=== PATIENT | female | born 1950 | race Caucasian/White ===

== ENCOUNTER 2020-01-24 16:11 | Emergency (ER) | payer MEDICARE, SELFPAY ==
--- NOTE | ~2020-01-24 | XR_ITS ---
[XR ribs LT 2V w CXR 2V ] INDICATION: Left-sided chest pain after fall TECHNIQUE: Frontal projection of the upper left ribs, frontal projection of the lower left ribs, obli que projection of all the left ribs, frontal inspiratory chest x-ray for interpretation. FINDINGS: There are no displaced rib fractures identified. There are no soft tissue abnormality see n. The lungs are clear. There is an age-indeterminate compression fracture of L1. There is right lo wer lobe airspace disease. Moderate size hiatal hernia. IMPRESSION: 1:No displaced rib fractures. 2: Right lower lobe airspace disease, atelectasis versus pneumonia. 3: Moderate size hiatal hernia. 4: Age-indeterminate compression fracture of L1. Reviewed, dictated and finalized at location A.
--- NOTE | 2020-01-24 16:41 | ED.GENADULT ---
HPI - General Adult General Chief complaint: Fall Stated complaint: Fall lft rib pain Time Seen by Provider: 01/24/20 16:41 Source: patient Mode of arrival: ambulatory Limitations: no limitations History of Present Illness HPI narrative: 69-year-old female patient presents to the [facility] with complaints of left-sided rib pain. Patient states about 4 days ago she was going down some stairs holding a saw and tripped and fell. Patient states she tried to avoid this but did hit a little bit of the saw and fell onto a grassy area. Patient states since then she has been having pain to the left rib area especially when she takes a deep breath then. Denies any shortness of breath at this time. Denies any abdominal pain or bruising to the abdomen. Denies taking anything for the pain. Denies using any kind a heating pad or ice to the area. Related Data Home Medications Medication Instructions Recorded Confirmed Abilify 01/24/20 atorvastatin [Lipitor] 40 mg PO DAILY 01/24/20 01/24/20 dextroamphetamine-amphetamine 30 mg PO BID 01/24/20 01/24/20 [Adderall] fluoxetine [Prozac] 10 mg PO TID 01/24/20 01/24/20 lamotrigine [Lamictal] 300 mg PO DAILY 01/24/20 01/24/20 lisinopril [Zestril] 20 mg PO DAILY 01/24/20 01/24/20 modafinil [Provigil] 200 mg PO QAM 01/24/20 01/24/20 Allergies Allergy/AdvReac Type Severity Reaction Status Date / Time No Known Allergies Allergy Verified 01/24/20 16:50 Review of Systems Review of Systems: Narrative: CONSTITUTIONAL: Denies fever, chills, or sweats. EYES: Denies visual changes, redness, or discharge. ENT: Denies rhinorrhea, congestion, sore throat, or otalgia. CARDIOVASCULAR: Denies chest pain, palpitations, or edema. RESPIRATORY: Denies cough or dyspnea. Positive left rib pain x4 days GASTROINTESTINAL: Denies abdominal pain, nausea, vomiting, or diarrhea. GENITOURINARY: Denies dysuria or hematuria. SKIN: Denies rash or itching. MUSCULOSKELETAL: Denies back pain, joint pain, or myalgia. NEUROLOGIC: Denies headache, numbness, or weakness. PSYCHIATRIC: Denies anxiety or depression. [facility] Social History Social History Alcohol intake: never Gender identity (if verbalized by the patient): Female Comments At the time of my signature I agree with nursing past medical history, surgical, social, and family history. There is no relevant family history pertinent to the presenting complaint. Exam Narrative: Exam Narrative: GENERAL: Well-appearing, well-nourished, and in no acute distress. HEAD: Normocephalic, atraumatic. EYES: PERRLA and EOMI. ENT: Nares clear, no rhinorrhea or epistaxis. Mucous membranes moist. NECK: Supple. No lymphadenopathy CHEST: Clear to auscultation. No respiratory distress. Patient does have some tenderness noted around the sixth and seventh rib on the anterior side right under the left breast. HEART: Regular rate and rhythm. No murmur heard. Normal peripheral pulses. ABDOMEN: Soft, flat, nondistended. No guarding, rebound tenderness, or rigid. No pulsatilla masses. Bowel sounds present in all four quadrants. No organomegaly. Negative Akbar?s sign. No periumbicial tenderness. No Supra public tenderness or distension. Good femoral pulses bilaterally. No hernia noted. No scars or surface trauma. No surface trauma distinction or tenderness to Palpation. No guarding, rebound, or rigidity. No referred shoulder pain (Kehr?s sign). No periumbilical ecchymosis (nikki?s sign). No flank ecchymosis (veliz niño?s sign). EXTREMITIES: Normal range of motion. No edema. SKIN: Warm, dry, no rash. NEURO: No focal deficits. Alert and oriented x3. Course Reevaluation(s) Reevaluation #1: Reevaluated patient after her x-ray had resulted. Notified her that there is no acute rib fractures noted on the x-ray however it does appear that she might have a touch of pneumonia on the right lower lobe. Discussed with her that this could be be
[2020-01-24 16:42] VITALS: BP 145/80; PULSE 76; RESP 16; TEMP 36.9; O2SAT 99
== END 2020-01-24 17:30 | disposition home or self-care (01) ==
PROVIDERS: Emergency Provider Nurse Practitioner Family
DX: S20.212A Contusion of left front wall of thorax, initial encounter (principal); J18.1 Lobar pneumonia, unspecified organism; K44.9 Diaphragmatic hernia without obstruction or gangrene; W10.9XXA Fall (on) (from) unspecified stairs and steps, initial encounter
CPT/HCPCS: 71046; 71100; 99213; G0463

== ENCOUNTER 2022-01-25 10:34 | Emergency (ER) | payer MEDICARE, SELFPAY ==
--- NOTE | ~2022-01-25 | XR_ITS ---
EXAMINATION: XR forearm LT 2V INDICATION: Left forearm pain, initial encounter TECHNIQUE: Two views of the left forearm are obtained. COMPARISON: None available FINDINGS: There is an acute transverse fracture of the proximal ulna. The olecranon is proximally mariya rated. There is an intra-articular fracture at the lateral aspect of the radial head. No additional f racture is identified. Alignment at the wrist is normal. There is an elbow joint effusion and posteri or soft tissue swelling of the elbow. IMPRESSION: 1. Fractures of the radius and ulna as described above. Reviewed, dictated and finalized at location A.
--- NOTE | ~2022-01-25 | XR_ITS ---
EXAMINATION: XR elbow LT min 3V DATE: 01/25/2022 11:05 INDICATION: Left elbow pain, initial encounter TECHNIQUE: Anteroposterior, two oblique and lateral views of the left elbow were obtained. COMPARISON: None. FINDINGS: There is a transverse fracture of the proximal ulna. The olecranon is proximally migrated a nd from the ulna by approximately 1.2 cm. There is an oblique intra-articular fracture at t he lateral aspect of the radial head. A large elbow joint effusion is present. There is posterior sof t tissue swelling of the elbow. IMPRESSION: 1. Displaced fracture of the olecranon. 2. Intra-articular fracture of the radial head. Reviewed, dictated and finalized at location A.
--- NOTE | ~2022-01-25 | XR_ITS ---
EXAMINATION: XR humerus LT INDICATION: Left arm pain, initial encounter TECHNIQUE: Two views of the left humerus are obtained. COMPARISON: None available FINDINGS: There is a transverse fracture of the proximal ulna with proximal migration of the olecrano n. There is a poorly visualized intra-articular fracture of the radial head. There is no fracture of the left shoulder. Moderate osteoarthritis is noted in the acromioclavicular joint. IMPRESSION: 1. Fractures of the proximal radius and ulna. 2. Mild osteoarthritis of the left shoulder without acute findings. Reviewed, dictated and finalized at location A.
[2022-01-25 10:49] VITALS: BP 116/77; PULSE 65; RESP 18; TEMP 36.7; O2SAT 94
--- NOTE | 2022-01-25 10:53 | ED.GENADULT ---
HPI - General Adult General Chief complaint: Extremity Injury, Upper Stated complaint: fall, arm injury Time Seen by Provider: 01/25/22 10:45 History of Present Illness HPI narrative: Patient is a 71-year-old female with a history of hypertension, osteoporosis who presents emergency department via EMS for evaluation of left elbow pain after a fall today. Patient states she was pulling a weed out of some concrete, when she fell back and landed on her left elbow. No head injury or loss of consciousness. She has reported pain in her elbow and left forearm ever since also has a small abrasion over the left elbow. Was given morphine en route with good pain control. Denies numbness or tingling in her hand. Report significant pain with movement of the elbow. Patient has a chronic injury to her left 5th digit with residual difficulty with finger flexion; but she states she is at her baseline movement in her left hand. No paresthesias. Related Data Home Medications Medication Instructions Recorded Confirmed Abilify 01/24/20 atorvastatin [Lipitor] 40 mg PO DAILY 01/24/20 01/24/20 dextroamphetamine-amphetamine 30 mg PO BID 01/24/20 01/24/20 [Adderall] fluoxetine [Prozac] 10 mg PO TID 01/24/20 01/24/20 lamotrigine [Lamictal] 300 mg PO DAILY 01/24/20 01/24/20 lisinopril [Zestril] 20 mg PO DAILY 01/24/20 01/24/20 modafinil [Provigil] 200 mg PO QAM 01/24/20 01/24/20 Allergies Allergy/AdvReac Type Severity Reaction Status Date / Time No Known Allergies Allergy Verified 01/25/22 10:57 Review of Systems Review of Systems: Gen: Denies fevers or chills Eyes: Denies eye pain or visual change ENT: Denies congestion Respiratory: Denies shortness of breath or cough CV: Denies chest pain or palpitations GI: Denies abdominal pain nausea, emesis or diarrhea : denies burning, urgency, frequency or hematuria Musculoskeletal: Reports left elbow pain. denies back pain or muscle pain Neuro: Denies numbness, tingling, weakness or focal weakness Skin: Reports abrasion over left elbow. Except as documented, all other systems reviewed and negative All systems reviewed & are unremarkable except as noted in HPI and below PMFSH Social History Social History Alcohol intake: never Gender identity (if verbalized by the patient): Female Exam Narrative: Gen: Alert, oriented, no acute distress Eyes: EOMI, no icterus Pulm: Respirations even and unlabored, symmetric thorax expansion, no audible stridor or visible cyanosis CV: 2+ radial pulse bilaterally. Brisk capillary refill. No murmurs, rubs, or gallops. Regular rate. GI: No distension, no voluntary/involuntary guarding Neuro: AOx4, moves all extremities without apparent difficulty or weakness, follows commands MSK: Left elbow has large obvious deformity, bruising and swelling. Tender to palpation over olecranon. There is tenderness with palpation of the forearm bones on the left, and also tenderness over that length of the humerus on the left. No obvious deformity to forearm or upper arm. Chronic difficulty with left 5th digit flexion due to old injury, patient states no more than usual. Able to move other digits without difficulty. Range of motion in left elbow limited due to pain. Skin: No jaundice, no visible bruising, rashes, lesions or wounds on exposed skin Psych: Normal mood/affect, insight/judgement good, adequate fund of knowledge, recent/remote memory intact Course Vital Signs Vital signs: Vital Signs Temperature 98.0 F 01/25/22 10:49 Pulse Rate 65 01/25/22 10:49 Respiratory Rate 18 01/25/22 10:49 Blood Pressure 116/77 01/25/22 10:49 Pulse Oximetry 94 01/25/22 10:49 Temperature 98.0 F 01/25/22 10:49 Pulse Rate 68 01/25/22 15:02 Respiratory Rate 14 01/25/22 15:02 Blood Pressure 119/69 01/25/22 15:02 Pulse Oximetry 93 01/25/22 15:02 Transfer Transfered to: [facility]
[2022-01-25 12:10] VITALS: BP 116/71; PULSE 67; RESP 17; O2SAT 94
[2022-01-25 12:46] VITALS: BP 113/63; PULSE 67; RESP 15; O2SAT 94
[2022-01-25] MEDS: MORPHINE SULFATE (*CRX) 4 MG/ML INJ IV PUSH (12:50)
[2022-01-25 13:32] VITALS: BP 105/84; PULSE 74; RESP 15; O2SAT 98
[2022-01-25] MEDS: MORPHINE SULFATE (*CRX) 2 MG/ML INJ IV PUSH (15:01)
[2022-01-25] MEDS: SODIUM CHLORIDE 0.9% IV 500 ML 999 ML IV CONT (15:01)
[2022-01-25 15:02] VITALS: BP 119/69; PULSE 68; RESP 14; O2SAT 93
== END 2022-01-25 16:35 | disposition short-term general hospital (02) ==
LOC: ANHED 11:02
PROVIDERS: Emergency Provider Emergency Medicine; PCP Family Medicine
DX: S52.022A Displaced fracture of olecranon process without intraarticular extension of left ulna, initial encounter for closed fracture (principal); S52.122A Displaced fracture of head of left radius, initial encounter for closed fracture; I10 Essential (primary) hypertension; M81.0 Age-related osteoporosis without current pathological fracture; M19.012 Primary osteoarthritis, left shoulder; W18.39XA Other fall on same level, initial encounter
CPT/HCPCS: 73060; 73080; 73090; 96361; 96374; 96376; 99285; J2270; J7040

== ENCOUNTER 2023-05-04 13:06 | Emergency (ER) | payer MEDICARE, SELFPAY ==
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
--- NOTE | ~2023-05-04 | CT_ITS ---
EXAMINATION: CT brain wo con DATE: 05/04/2023 14:36 INDICATION: Head injury. TECHNIQUE: Computed tomography (CT) of the head was performed without intravenous contrast. The mA wa s adjusted according to patient size. Iterative reconstruction technique was employed. The dose-lengt h product was 605.33 mGy-cm. COMPARISON: None FINDINGS: There is no intracranial hemorrhage, acute infarction, or abnormal intracranial mass lesion . The ventricles are normal in size. The orbits are normal. The paranasal sinuses are clear. The mast oid air cells are normal. IMPRESSION: 1. Normal brain. Reviewed, dictated and finalized at location A. IMPRESSION: 1. Normal brain.
[2023-05-04 13:10] VITALS: BP 118/75; PULSE 88; RESP 16; TEMP 36.4; O2SAT 100
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
[2023-05-04 14:58] VITALS: BP 104/74; PULSE 71; RESP 22; O2SAT 97
== END 2023-05-04 15:05 | disposition home or self-care (01) ==
PROVIDERS: Emergency Provider Emergency Medicine; PCP Family Medicine
DX: S09.90XA Unspecified injury of head, initial encounter (principal); S50.312A Abrasion of left elbow, initial encounter; S50.311A Abrasion of right elbow, initial encounter; M19.022 Primary osteoarthritis, left elbow; M19.021 Primary osteoarthritis, right elbow; V18.0XXA Pedal cycle driver injured in noncollision transport accident in nontraffic accident, initial encounter; Y93.55 Activity, bike riding
CPT/HCPCS: 70450; 73080; 99284

== ENCOUNTER 2023-10-22 16:35 | Emergency (ER) | payer MEDICARE, SELFPAY ==
--- NOTE | ~2023-10-22 | CT_ITS ---
EXAMINATION: CT brain wo con DATE: 10/22/2023 20:49 INDICATION: fall, head injury . TECHNIQUE: Computed tomography (CT) of the head was performed without intravenous contrast. The mA wa s adjusted according to patient size. Iterative reconstruction technique was employed. The dose-lengt h product was 605.33 mGy-cm. COMPARISON: 05/04/2023. FINDINGS: No acute intracranial hemorrhage or extra-axial fluid collection. No hydrocephalus, mass, or herniation. No acute ischemic infarct. Unremarkable dural venous sinus attenuation. No acute osseous abnormality. Mucosal thickening and aerated secretions in the ethmoid sinuses, mucosal thickening in the right max illary sinus, air-fluid level in the left maxillary sinus, the remaining aerated spaces are clear. Mild atrophy and chronic white matter change. Atherosclerotic intracranial calcification. IMPRESSION: No acute intracranial process. Possible acute left maxillary and ethmoid sinusitis. Reviewed, dictated and finalized at location K. CLE INSPECTOR IMPRESSION: No acute intracranial process. Possible acute left maxillary and ethmoid sinusi tis.
--- NOTE | ~2023-10-22 | CT_ITS ---
EXAMINATION: CT facial & cervical spine wo DATE: 10/22/2023 20:49 INDICATION: fall, head injury TECHNIQUE: Computed tomography (CT) of the maxillofacial region and cervical spine was performed with out intravenous contrast. Automated exposure control and iterative reconstruction technique were empl oyed. The dose-length product was 288.27 mGy-cm. COMPARISON: None FINDINGS: CERVICAL: Vertebral Body Alignment: 3 mm anterolisthesis at C3-4, without significant facet uncovering. The cer vical spine is held in left lateral flexion. Craniocervical and atlantoaxial alignment: Moderate degenerative change. Alignment intact. Osseous structures/fracture: No evidence of a lytic or blastic process in the visualized spine. No e vidence of acute fracture. Cervical soft tissues: The paraspinal soft tissues planes are maintained. Degenerative changes: Multilevel severe degenerative disc disease and facet arthropathy. No severe ce ntral canal narrowing. Severe left neural foraminal narrowing at C3-4 and C4-5. FACE: Soft Tissues: No significant superficial soft tissue swelling. Facial bones: No acute fracture. No lytic or blastic process. Eyes: The globes are intact. The soft tissue planes of the orbits are maintained. Paranasal Sinuses: Ethmoid and bilateral maxillary mucosal thickening. Aerated secretions in the eth moid sinus on the left. Air-fluid level in the left maxillary sinus, with surrounding sclerosis. Foreign Bodies: No radiopaque foreign bodies. Other Findings: Periodontal disease. IMPRESSION: No acute fracture detected in the cervical spine. Grade 1 anterolisthesis at C3-4, presumably on a de generative basis. No acute facial bone fracture. Possibly acute on chronic left ethmoid and maxillary sinusitis. Reviewed, dictated and finalized at location K. 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 Grade 1 anterolisthesis at C3 -4, presumably on a degenerative basis. No acute facial bone fracture. Possibly acute on chronic left ethmoid and maxillary sinusitis.
--- NOTE | ~2023-10-22 | XR_ITS ---
EXAM: XR knee LT min 4V DATE: 10/22/2023 20:50 HISTORY: left knee pain, injury . COMPARISON: None available. FINDINGS: Normal mineralization. No fracture or dislocation. No lytic or blastic lesion. Mild tricom partmental left knee osteoarthritis. Small left knee joint effusion spaces are maintained. No erosion or periosteal change. Soft tissues within normal limits. IMPRESSION: No acute osseous finding in the left knee. Reviewed, dictated and finalized at location K. [employer]
[2023-10-22 16:52] VITALS: BP 120/69; PULSE 83; RESP 16; TEMP 36.7; O2SAT 99
[2023-10-22 20:04] VITALS: BP 117/57; PULSE 72; RESP 20; O2SAT 96
--- NOTE | 2023-10-22 20:25 | ECG_ITS ---
Measurements Intervals [place] Rate: 67 P: 18 NH: 180 QRS: 24 QRSD: 80 T: 18 QT: 382 QTc: 404 Interpretive Statements SINUS RHYTHM WITHIN NORMAL LIMITS NO PREVIOUS ECG AVAILABLE FOR COMPARISON Electronically Signed On 10-23-2023 7:40:36 [employer]ORCH STRAIGHTENER by Estuardo Bean M.D.
--- NOTE | 2023-10-22 20:29 | ED.HEATRA ---
HPI - Head Injury General Chief complaint: Head Injury Stated complaint: head injury Time Seen by Provider: 10/22/23 20:17 Source: patient Mode of arrival: ambulatory Limitations: no limitations History of Present Illness HPI Narrative: This is a 73 year old female that presents to the ER for falls with head injury. Reports 3 days ago she was feeling off balance and fell and hit her head. Also reports yesterday when going down the steps she missed a step and fell forward. She did not lose consciousness. Reports a left knee injury. Reports she has had some double vision and headaches since. Denies vomiting, focal numbness or weakness. Related Data Home Medications Medication Instructions Recorded Confirmed Abilify 01/24/20 atorvastatin 40 mg tablet (Lipitor) 40 mg PO DAILY 01/24/20 01/24/20 dextroamphetamine-amphetamine 30 30 mg PO BID 01/24/20 01/24/20 mg tablet (Adderall) fluoxetine 10 mg capsule (Prozac) 10 mg PO TID 01/24/20 01/24/20 lamotrigine 200 mg tablet 300 mg PO DAILY 01/24/20 01/24/20 (Lamictal) lisinopril 20 mg tablet (Zestril) 20 mg PO DAILY 01/24/20 01/24/20 modafinil 200 mg tablet (Provigil) 200 mg PO QAM 01/24/20 01/24/20 Allergies Allergy/AdvReac Type Severity Reaction Status Date / Time ceftriaxone Allergy Itching Verified 10/22/23 20:09 Review of Systems Review of Systems: CONSTITUTIONAL: Denies fever EYES: Reports visual changes GASTROINTESTINAL: Denies vomiting MUSCULOSKELETAL: Reports joint pain, and myalgia. NEUROLOGIC: Reports headache. Denies numbness, or weakness. All systems reviewed & are unremarkable except as noted in HPI and below PMFSH Past Medical History Medical History (Updated 10/22/23 @ 23:32 by Bernadette Carlos PA-C) History of bipolar disorder History of hyperlipidemia History of hypertension Social History Social History Alcohol intake: never Gender identity (if verbalized by the patient): Female Exam Narrative: GENERAL: Well-appearing, well-nourished, and in no acute distress. HEAD: Normocephalic, atraumatic. EYES: PERRLA and EOMI. ENT: Nares clear, no rhinorrhea or epistaxis. Mucous membranes moist. Oropharynx without tonsillar hypertrophy exudate or other lesions. Bilateral TMs pearly cee non-bulging NECK: Supple. No adenopathy or masses. CHEST: Clear to auscultation. No respiratory distress. No wheezes rales or rhonchi HEART: Regular rate and rhythm. No murmur heard. Normal peripheral pulses. BACK: No midline spinal tenderness EXTREMITIES: Normal range of motion. No obvious deformity. Mild edema about the left knee anteriorly without erythema. Normal DP pulses. Normal sensation. Strength equal in bilateral upper and lower extremities (5/5) SKIN: Warm, dry, no rash. NEURO: No focal deficits. Alert and oriented x3. Cranial nerves 2-12 grossly intact PSYCH: Normal mood and affect Course Course Emergency Course: Patient updated. Reports feeling well. Is ready for discharge Vital Signs Vital signs: Vital Signs Temperature 98.1 F 10/22/23 16:52 Pulse Rate 83 10/22/23 16:52 Respiratory Rate 16 10/22/23 16:52 Blood Pressure 120/69 10/22/23 16:52 Pulse Oximetry 99 10/22/23 16:52 Oxygen Delivery Room Air 10/22/23 16:52 Temperature 98.1 F 10/22/23 16:52 Pulse Rate 70 10/22/23 22:53 Respiratory Rate 18 10/22/23 22:53 Blood Pressure 100/59 L 10/22/23 22:53 Pulse Oximetry 96 10/22/23 22:53 Oxygen Delivery Room Air 10/22/23 16:52 MDM - Head Injury MDM Narrative Medical decision making narrative: Patient presents to the emergency department after 2 separate falls with head injuries. She is afebrile and nontoxic appearing. Her vitals are stable. CBC without leukocytosis. Shows normocytic anemia with hemoglobin of 10.3. Metabolic panel with evidence of mild dehydration, patient lightly hydrated in the ED. UA is without evidence of infe
[2023-10-22 21:05] LABS: Basophils Percent Auto 0.4 % (0.2-1.2); Eosinophils Absolute Auto 0.2 K/mm3 (0-0.3); Eosinophils Percent Auto 2.4 % (0-4.4); Hemoglobin 10.3 g/dL (12.0-15.0); Immature Granulocyte Absolute 0.02 K/mm3 (0.00-0.031); Immature Granulocyte Percent A 0.3 % (0-0.5); Lymphocytes Absolute Auto 2.07 K/mm3 (0.9-3.2); Lymphocytes Percent Auto 26.3 % (18.3-44.2); Mean Corpuscular HGB Conc 31.2 g/dl (32-36); Mean Corpuscular Hemoglobin 28.6 pg (26-34); Mean Corpuscular Volume 91.7 fl (80-100); Mean Platelet Volume 9.8 fl (7.4-10.4); Monocytes Percent Auto 12.9 % (2.6-8.5); Neutrophils Absolute Auto 4.6 K/mm3 (1.3-6.7); Neutrophils Percent Auto 57.7 % (45.5-73.1); Platelet Count Result 321 k/mm3 (150-375); Red Cell Distribution Width 12.7 % (11.5-14.5); White Blood Count 7.9 K/mm3 (4.5-10.0)
[2023-10-22 21:18] LABS: Alanine Aminotransferase 19 U/L (6-35); Albumin Level 3.8 g/dL (3.5-5.1); Alkaline Phosphatase 90 U/L (38-126); Anion Gap 4 mmol/L (8-16); Aspartate Amino Transferase 27 U/L (14-36); Bilirubin,Total 0.2 mg/dL (0.2-1.3); Blood Urea Nitrogen 23 mg/dL (7-17); Calcium 8.8 mg/dL (8.4-10.2); Carbon Dioxide 28 mmol/L (22-30); Chloride 101 mmol/L (98-107); Estimated CRCL calculation 48 ml/min; Estimated Glomerular Filt Rate > 60; Glucose 99 mg/dL (65-110); Sodium 133 mmol/L (137-145)
[2023-10-22] MEDS: ACETAMINOPHEN 500 MG TABLET 1000 MG PO (21:23)
[2023-10-22] MEDS: SODIUM CHLORIDE 0.9% IV 500 ML 999 ML IV CONT (21:24)
[2023-10-22 21:55] LABS: Appearance Urine Clear (Clear); Bacteria Urine None Seen /hpf; Bilirubin Urine Negative (Negative); Blood Urine Trace (Negative); Color Urine Yellow (Yellow); Glucose Urine UA Negative (Negative); Ketones Urine Negative (Negative); Leukocyte Esterase Ur 2+ LEU/UL (Negative); Nitrate Urine Negative (Negative); Non Pathogenic Casts 0-2; Protein Urine Negative (Negative); RBC Urine 0-2 /hpf (0-2); Specific Grav Ur 1.016 (1.001-1.035); Squamous Epithelial Cell Urine Occasional /hpf (Few); Urobilinogen Urine 0.2 mg/dL (<2.0); WBC Urine 21-50 /hpf
[2023-10-22 21:57] LABS: Add Urine Microscopic? YES
[2023-10-22] MEDS: levoFLOXacin 250 MG TABLET PO (22:52)
[2023-10-22 22:53] VITALS: BP 100/59; PULSE 70; RESP 18; O2SAT 96
== END 2023-10-23 | disposition home or self-care (01) ==
PROVIDERS: Emergency Provider Physician Assistant; PCP Family Medicine
DX: S09.90XA Unspecified injury of head, initial encounter (principal); S83.92XA Sprain of unspecified site of left knee, initial encounter; N39.0 Urinary tract infection, site not specified; E78.5 Hyperlipidemia, unspecified; I10 Essential (primary) hypertension; F31.9 Bipolar disorder, unspecified; W10.9XXA Fall (on) (from) unspecified stairs and steps, initial encounter; W18.39XA Other fall on same level, initial encounter
CPT/HCPCS: 36415; 70450; 70486; 72125; 73564; 80053; 81001; 85025; 87086; 93005; 96360; 99284; A9270; J7040

== ENCOUNTER 2023-12-19 14:21 | Emergency (ER) | payer MEDICARE, SELFPAY ==
[2023-12-19] VITALS (11 sets, daily range): BP systolic 104–120; BP diastolic 63–77; PULSE 66–73; RESP 16–20; TEMP 36.6–36.7; O2SAT 97–100
--- NOTE | ~2023-12-19 | XR_ITS ---
XR chest 1V portable DATE: 12/19/2023 14:53 INDICATION: Chest pain TECHNIQUE: Portable AP chest on January 08, 2024 at 1448 hours COMPARISON: None FINDINGS: Heart size is within normal range. Is aortic arch calcification. Double density behind the heart is likely due to moderate size hiatal hernia. Minimal atelectasis or scarring at the lung bases; otherwise no pulmonary infiltrate or consolidation , pleural effusion or pulmonary vascular congestion or pneumothorax. Osteopenia IMPRESSION: Minimal atelectasis or scarring at the lung bases; otherwise no active cardiac pulmonary disease Moderate sized hiatal hernia Aortic calcification Osteopenia Reviewed, dictated and finalized at location B. IMPRESSION: Minimal atelectasis or scarring at the lung bases; otherwise no act kari cardiac pulmonary disease Moderate sized hiatal hernia Aortic calcification Osteopenia
--- NOTE | 2023-12-19 14:23 | ECG_ITS ---
Measurements Intervals [place] Rate: 71 P: 42 MT: 176 QRS: 0 QRSD: 81 T: 30 QT: 375 QTc: 409 Interpretive Statements SINUS RHYTHM LOW QRS VOLTAGE IN PRECORDIAL LEADS [QRS DEFLECTION < 1.0 mV IN CHEST LEADS] COMPARED TO ECG 10/22/2023 21:07:59 NO SIGNIFICANT CHANGES Electronically Signed On 12-19-2023 14:54:29 CDT by Demario Ye M.D.
[2023-12-19 15:13] LABS: Basophils Percent Auto 0.4 % (0.2-1.2); Eosinophils Absolute Auto 0.1 K/mm3 (0-0.3); Eosinophils Percent Auto 1.7 % (0-4.4); Hematocrit 33.2 % (37.0-47.0); Immature Granulocyte Absolute 0.02 K/mm3 (0.00-0.031); Immature Granulocyte Percent A 0.3 % (0-0.5); Lymphocytes Absolute Auto 2.51 K/mm3 (0.9-3.2); Lymphocytes Percent Auto 35.5 % (18.3-44.2); Mean Corpuscular HGB Conc 30.1 g/dl (32-36); Mean Corpuscular Hemoglobin 26.2 pg (26-34); Mean Corpuscular Volume 87.1 fl (80-100); Mean Platelet Volume 10.3 fl (7.4-10.4); Monocytes Absolute Auto 0.8 K/mm3 (0.1-0.6); Monocytes Percent Auto 11.3 % (2.6-8.5); Neutrophils Absolute Auto 3.6 K/mm3 (1.3-6.7); Neutrophils Percent Auto 50.8 % (45.5-73.1); Platelet Count Result 429 k/mm3 (150-375); Red Blood Count 3.81 M/mm3 (4.2-5.4); Red Cell Distribution Width 13.5 % (11.5-14.5); White Blood Count 7.1 K/mm3 (4.5-10.0)
[2023-12-19 15:24] LABS: INR 0.9; Prothrombin Time 12.9 Seconds (11.1-14.7)
[2023-12-19 15:25] LABS: Partial Thromboplastin Time 28.7 Seconds (22.3-36.8)
[2023-12-19 15:27] LABS: Alanine Aminotransferase 27 U/L (6-35); Albumin Level 4.7 g/dL (3.5-5.1); Alkaline Phosphatase 82 U/L (38-126); Anion Gap 6 mmol/L (4-12); Aspartate Amino Transferase 42 U/L (14-36); Bilirubin,Total 0.3 mg/dL (0.2-1.3); Blood Urea Nitrogen 19 mg/dL (7-17); Calcium 9.6 mg/dL (8.4-10.2); Carbon Dioxide 29 mmol/L (22-30); Chloride 97 mmol/L (98-107); Estimated Glomerular Filt Rate 49; Glucose 89 mg/dL (65-110); Lipase 94 U/L (23-300); Potassium 4.4 mmol/L (3.4-5.0); Sodium 132 mmol/L (137-145)
[2023-12-19 15:37] LABS: Troponin I < 0.012 ng/mL (0.000-0.034)
--- NOTE | 2023-12-19 16:20 | ED.SOB ---
HPI - SOB/Dyspnea General Chief Complaint: Shortness of Breath/Dyspnea Stated Complaint: sob with exertion Time Seen by Provider: 12/19/23 16:14 Source: patient and family Mode of arrival: ambulatory Limitations: no limitations History of Present Illness HPI Narrative: Patient presents report shortness of breath/dyspnea with exertion. She denies any orthopnea. She does have a history of sleep apnea for which she uses CPAP. No recent travel. No recent surgical interventions or immobilization. No prior cardiac history and does not with a collections attorney. No prior respiratory conditions such as asthma or COPD for example. She notes today that her heart rate would go from the 70s to the 90s when ambulating. She feels more fatigued and is of chest heaviness. She states for example walking from the parking lot to the front door she became short of breath or before this was not an issue. She has a history of anemia but has never required blood transfusion. Takes iron supplementation. She did have some leg swelling bilaterally a few weeks ago but not presently. Related Data Home Medications Medication Instructions Recorded Confirmed Abilify 01/24/20 atorvastatin 40 mg tablet (Lipitor) 40 mg PO DAILY 01/24/20 01/24/20 dextroamphetamine-amphetamine 30 30 mg PO BID 01/24/20 01/24/20 mg tablet (Adderall) fluoxetine 10 mg capsule (Prozac) 10 mg PO TID 01/24/20 01/24/20 lamotrigine 200 mg tablet 300 mg PO DAILY 01/24/20 01/24/20 (Lamictal) lisinopril 20 mg tablet (Zestril) 20 mg PO DAILY 01/24/20 01/24/20 modafinil 200 mg tablet (Provigil) 200 mg PO QAM 01/24/20 01/24/20 Allergies Allergy/AdvReac Type Severity Reaction Status Date / Time ceftriaxone Allergy Itching Verified 10/22/23 20:09 [facility] Past Medical History Medical History Anemia History of bipolar disorder History of hyperlipidemia History of hypertension Hypertension Sleep apnea treated with continuous positive airway pressure (CPAP) Family History Family History (Updated 12/20/23 @ 10:01 by Maru Donis MD) Father Acute myocardial infarction before age 65 CAD (coronary artery disease) Social History Social History Alcohol intake: never Gender identity (if verbalized by the patient): Female Exam Narrative: GENERAL: Well-appearing, well-nourished, and in no acute distress. HEAD: Normocephalic, atraumatic. EYES: Non injected, non icteric ENT: Nares clear, no rhinorrhea or epistaxis. NECK: Supple. CHEST: Clear to auscultation bilaterally without wheezes or crackles. No respiratory distress. Speaking in complete sentences. Moving good air. HEART: Regular rate and rhythm. . ABDOMEN: Soft, nondistended. EXTREMITIES: Normal range of motion. No lower extremity edema. SKIN: Warm, dry, no rash. NEURO: No focal deficits. Alert and oriented x3. PSYCH: Normal mood and affect. Course Vital Signs Vital signs: Vital Signs Temperature 98.0 F 12/19/23 14:31 Pulse Rate 72 12/19/23 14:31 Respiratory Rate 16 12/19/23 14:31 Blood Pressure 116/64 12/19/23 14:31 Pulse Oximetry 100 12/19/23 14:31 Oxygen Delivery Room Air 12/19/23 14:31 Temperature 97.8 F 12/19/23 19:00 Pulse Rate 72 12/19/23 19:00 Respiratory Rate 18 12/19/23 19:00 Blood Pressure 120/77 12/19/23 19:00 Pulse Oximetry 100 12/19/23 19:00 Oxygen Delivery Room Air 12/19/23 17:14 MDM - SOB/Dyspnea MDM Narrative Medical decision making narrative: Patient presents report shortness of breath/dyspnea with exertion. In the emergency department they are afebrile with vital signs within normal limits. Work up generally unremarkable. She has had an echo performed somewhat recently but otherwise did not follow up with a collections attorney. She also added information that the leg swelling that she experienced a few weeks ag
[2023-12-19] MEDS: SODIUM CHLORIDE 0.9% IV 1,000 ML 999 ML IV CONT (16:57)
[2023-12-19 17:02] LABS: Magnesium 2.5 mg/dL (1.6-2.3)
[2023-12-19 17:11] LABS: Influenza A QL RT-PCR Negative (Negative); Influenza B QL RT-PCR Negative (Negative); RSV RNA, RT-PCR Negative (Negative); SARS-CoV-2 RNA PCR Negative (Negative)
[2023-12-19 17:12] LABS: NT Pro B Type Natriuretic Pept 92 pg/mL (19.9-100)
[2023-12-19 17:18] LABS: D Dimer 0.45 ug/mL (<0.48)
--- NOTE | 2023-12-19 17:56 | PC.NURSE ---
Ambulated to BR with steady gait.Denies any chest pain with activity
== END 2023-12-19 19:22 | disposition home or self-care (01) ==
PROVIDERS: Emergency Medicine; Emergency Provider Student in an Organized Health Care Education/Training Program; PCP Family Medicine
DX: R06.00 Dyspnea, unspecified (principal); D64.9 Anemia, unspecified; M85.80 Other specified disorders of bone density and structure, unspecified site; I70.0 Atherosclerosis of aorta; Z20.822 Contact with and (suspected) exposure to COVID-19; F31.9 Bipolar disorder, unspecified; E78.5 Hyperlipidemia, unspecified; I10 Essential (primary) hypertension; G47.33 Obstructive sleep apnea (adult) (pediatric)
CPT/HCPCS: 36415; 71045; 80053; 83690; 83735; 83880; 84484; 85025; 85380; 85610; 85730; 87637; 93005; 96360; 99284; J7030

== ENCOUNTER 2024-03-01 16:27 | Emergency (ER) | payer OTHER, MEDICARE, SELFPAY ==
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
[2024-03-01 16:32] VITALS: BP 136/80; PULSE 91; RESP 20; TEMP 36.5; O2SAT 97
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
[2024-03-01 18:57] LABS: Basophils Percent Auto 0.4 % (0.2-1.2); Eosinophils Absolute Auto 0.1 K/mm3 (0-0.3); Eosinophils Percent Auto 1.6 % (0-4.4); Hematocrit 31.7 % (37.0-47.0); Hemoglobin 9.8 g/dL (12.0-15.0); Immature Granulocyte Absolute 0.05 K/mm3 (0.00-0.031); Immature Granulocyte Percent A 0.7 % (0-0.5); Immature Platelet Fraction Pct 2.9 % (0.9-11.2); Lymphocytes Absolute Auto 1.63 K/mm3 (0.9-3.2); Lymphocytes Percent Auto 21.7 % (18.3-44.2); Mean Corpuscular HGB Conc 30.9 g/dl (32-36); Mean Corpuscular Hemoglobin 25.3 pg (26-34); Mean Corpuscular Volume 81.7 fl (80-100); Mean Platelet Volume 9.8 fl (7.4-10.4); Monocytes Absolute Auto 0.7 K/mm3 (0.1-0.6); Monocytes Percent Auto 9.6 % (2.6-8.5); Platelet Count Result 340 k/mm3 (150-375); Red Blood Count 3.88 M/mm3 (4.2-5.4); Red Cell Distribution Width 15.1 % (11.5-14.5); White Blood Count 7.5 K/mm3 (4.5-10.0)
[2024-03-01 19:06] LABS: Partial Thromboplastin Time 22.9 Seconds (22.3-36.8); Prothrombin Time 13.5 Seconds (11.1-14.7)
[2024-03-01 19:08] LABS: Alanine Aminotransferase 26 U/L (6-35); Albumin Level 4.7 g/dL (3.5-5.1); Alkaline Phosphatase 79 U/L (38-126); Anion Gap 12 mmol/L (4-12); Aspartate Amino Transferase 38 U/L (14-36); Bilirubin,Total 0.3 mg/dL (0.2-1.3); Blood Urea Nitrogen 21 mg/dL (7-17); Calcium 9.3 mg/dL (8.4-10.2); Carbon Dioxide 22 mmol/L (22-30); Chloride 103 mmol/L (98-107); Estimated CRCL calculation 47 ml/min; Estimated Glomerular Filt Rate > 60; Glucose 129 mg/dL (65-110); Potassium 4.3 mmol/L (3.4-5.0); Sodium 137 mmol/L (137-145)
--- NOTE | 2024-03-01 19:10 | PC.NURSE ---
Report given to SRINATH Myers
[2024-03-01 19:21] LABS: Troponin I < 0.012 ng/mL (0.000-0.034)
[2024-03-01 19:24] VITALS: BP 101/66; PULSE 71; RESP 25; O2SAT 97
[2024-03-01 19:44] LABS: Platelet Estimate Adequate (Adequate)
[2024-03-01 19:45] LABS: Anisocytosis 2+; Hypochromasia 1+; Schistocytes None Seen
[2024-03-01 20:16] VITALS: PULSE 71; RESP 20; O2SAT 97
[2024-03-01 21:00] VITALS: PULSE 71; RESP 22; O2SAT 96
--- NOTE | 2024-03-01 21:26 | ECG_ITS ---
Test Date: 2024-03-01 21:35:39 Measurements Intervals [place] Rate: 67 P: 57 UT: 168 QRS: 18 QRSD: 89 T: 5 QT: 401 QTc: 425 Interpretive Statements SINUS RHYTHM LOW QRS VOLTAGE IN PRECORDIAL LEADS [QRS DEFLECTION < 1.0 mV IN CHEST LEADS] No previous ECG available for comparison Electronically Signed On 03-03-2024 12:51:40 CDT by Sid Don M.D.
[2024-03-01] MEDS: HYDROcodone/acetaminophen (*CRX) 5-325 MG TABLET 1 TAB PO (21:29)
== END 2024-03-01 22:57 | disposition home or self-care (01) ==
PROVIDERS: Emergency Medicine; Emergency Provider Physician Assistant
DX: S22.20XA Unspecified fracture of sternum, initial encounter for closed fracture (principal); I10 Essential (primary) hypertension; E78.5 Hyperlipidemia, unspecified; D64.9 Anemia, unspecified; G47.30 Sleep apnea, unspecified; F31.9 Bipolar disorder, unspecified; Z79.899 Other long term (current) drug therapy; K44.9 Diaphragmatic hernia without obstruction or gangrene; V43.52XA Car driver injured in collision with other type car in traffic accident, initial encounter
CPT/HCPCS: 36415; 71260; 80053; 84484; 85025; 85055; 85610; 85730; 93005; 99284; A9270; Q9967

== ENCOUNTER 2024-10-23 21:08 | Emergency (ER) | payer MEDICARE, SELFPAY ==
--- NOTE | ~2024-10-23 | CT_ITS ---
CLINICAL INDICATION: Nausea vomiting and diarrhea with suprapubic tenderness COMPARISON: None. Reference is made to a plain film evaluation of the chest dated 01/24/2020 TECHNIQUE: Multiple contiguous axial images of the abdomen and pelvis were performed following the ad ministration of with 100 mL Omnipaque-350 intravenous contrast The dose-length product (DLP) was 370.47 mGy-cm. Automated exposure control and iterative reconstruction technique were employed. FINDINGS/OBSERVATIONS: Visualized lower thorax: The bilateral lung bases are clear. The heart is of normal size, without pericardial effusion. Large hiatal hernia is present. Liver: The liver enhances homogeneously and is not enlarged measuring 13 cm in longitudinal dimension. Gallbladder and biliary system: The gallbladder is only minimally distended, and otherwise unremarkable. Pancreas: The pancreas enhances homogeneously without ductal dilatation. Spleen: The spleen enhances homogeneously and is not enlarged measuring 8 cm in longitudinal dimension. Kidneys: The bilateral kidneys enhance symmetrically without hydronephrosis or renal calculi. Adrenal glands: Unremarkable. Gastrointestinal tract: A large hiatal hernia is identified. Off the submitted images is limited evaluation of decreased attenuation and eccentric mural thickenin g, within the portion of the stomach, located within the chest. Multiple loops of prominent fluid-filled small bowel are identified. Air is detected within the colon along with trace fecal stasis. Appendix: The appendix is not definitively visualized. However, no pericecal inflammatory change is identified suggest the presence of acute appendicitis. Vasculature: Unremarkable. No aneurysmal dilatation or significant stenosis. Lymph nodes: No pathologically enlarged or morphologically suspicious lymph nodes within the retroperitoneum or at the root of the mesentery. Pelvic structures: The bladder is decompressed and otherwise unremarkable. The uterus is retroverted and anteroflexed. Body wall and musculoskeletal: Significant degenerative disease within the lower thoracic and lumbosacral spines with osteophyte for mation, disc space narrowing, endplate changes and vacuum phenomena. Compression of the superior endplate of L1 is identified, likely chronic. Dextroscoliotic curvature o f the lumbar spine is present. IMPRESSION: Large hiatal hernia with eccentric mural thickening and edema within the portion of the hernia within the chest. This hernia was seen on lateral view of the chest in 2019, but is significantly larger si nce that time. No additional acute findings, as detailed above. Reviewed, dictated and finalized at location A. CREAM SHOP ASSOCIATE IMPRESSION: Large hiatal hernia with eccentric mural thickening and edema within the portio n of the hernia within the chest. This hernia was seen on lateral view of the c hest in 2019, but is significantly larger since that time. No additional acute findings, as detailed above.
[2024-10-23 21:12] VITALS: BP 111/72; PULSE 63; RESP 24; TEMP 36.7; O2SAT 97
[2024-10-23 21:20] VITALS: BP 100/64; PULSE 63; RESP 17; TEMP 36.7; O2SAT 99
--- NOTE | 2024-10-23 21:30 | ED.NAVMDI ---
HPI - Nausea/Vomiting/Diarrhea General Chief complaint: Nausea/Vomiting/Diarrhea Stated complaint: N/V/D, WEAK, DEHYDRATED; e.COLI+, ON ABX Time Seen by Provider: 10/23/24 21:13 Source: patient Mode of arrival: EMS Limitations: no limitations History of Present Illness HPI Narrative: This is a 74-year-old female who presents to the ED via EMS for chief complaint of N/V x4 days. Patient reports that she recently test positive for E coli in the urine. States that she is unable to keep meds down. States that she has been worked up for UTI by her urology office and was told that the 1st antibiotic was not going to work, so she was just recently prescribed a new 1. However now she is unable to keep that new antibiotic down due to the nausea and vomiting. Endorses body aches as well as diarrhea. Denies abdominal pain, fevers, chills, flank pain. Related Data Home Medications ?Medication ?Instructions ?Recorded ?Confirmed ?Last Taken ?Type Abilify 01/24/20 Unknown History atorvastatin 40 mg tablet (Lipitor) 40 mg PO DAILY 01/24/20 01/24/20 Unknown History dextroamphetamine-amphetamine 30 30 mg PO BID 01/24/20 01/24/20 Unknown History mg tablet (Adderall) fluoxetine 10 mg capsule (Prozac) 10 mg PO TID 01/24/20 01/24/20 Unknown History lamotrigine 200 mg tablet 300 mg PO DAILY 01/24/20 01/24/20 Unknown History (Lamictal) lisinopril 20 mg tablet (Zestril) 20 mg PO DAILY 01/24/20 01/24/20 Unknown History modafinil 200 mg tablet (Provigil) 200 mg PO QAM 01/24/20 01/24/20 Unknown History Allergies Allergy/AdvReac Type Severity Reaction Status Date / Time ceftriaxone Allergy Itching Verified 10/23/24 21:19 Review of Systems Review of Systems: All systems as dictated in HPI [facility] Past Medical History Medical History Anemia History of bipolar disorder History of hyperlipidemia History of hypertension Hypertension Sleep apnea treated with continuous positive airway pressure (CPAP) Family History Family History (Updated 12/20/23 @ 10:01 by Maru Donis MD) Father Acute myocardial infarction before age 65 CAD (coronary artery disease) Social History Social History Alcohol intake: never Gender identity (if verbalized by the patient): Female Exam Narrative: GENERAL: Well-appearing, well-nourished, and in no acute distress. HEAD: Normocephalic, atraumatic. EYES: PERRLA and EOMI. ENT: Nares clear, no rhinorrhea or epistaxis. Mucous membranes moist. Oropharynx without tonsillar hypertrophy exudate or other lesions. NECK: Supple. No adenopathy or masses. CHEST: No respiratory distress. Clear to auscultation. No wheezes rales or rhonchi HEART: Regular rate and rhythm. No murmur heard. Normal peripheral pulses. ABDOMEN: Suprapubic tenderness. Soft, otherwise nontender, nondistended, normal active bowel sounds. MSK: Normal range of motion. No edema. SKIN: Warm, dry, no rash. NEURO: Alert and oriented x4. No focal deficits. PSYCH: Normal mood and affect. 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 No external lesions or hemorrhoids noted. No jayesh blood. Bedside guaiac stool test is negative. Course Reevaluation(s) Reevaluation #1: Spoke with Dr. Meneses (GI): He feels that this she was most likely a viral or autoimmune arrived hepatitis based on the presentation above. He is happy to see the patient for follow-up or consult if the patient is admitted. Date: 10/23/24 Time: 11:49 Vital Signs Vital signs: Vital Signs Temperature 98.0 F 10/23/24 21:12 Pulse Rate 63 10/23/24 21:12 Respiratory Rate 24 H 10/23/24 21:12 Blood Pressure 111/72 10/23/24 21:12 Pulse Oximetry 97 10/23/24 21:12 Oxygen Delivery Room Air 10/23/24 21:12 Temperature 98.0 F 10/23/24 21:20 Pulse Rate 63 10/23/24 21:20 Respiratory Rate 17 10/23/24 21:20 Blood Pressure 100/64 10/23/24 21:20 Pulse Oximetry 99 10/23/24 21:20 Oxygen Delivery Room Air 10/23/24 21:12 MDM - Nausea/Vomiting/Diarrhea MDM Narrative Medical decision making narrative: This is a 74-year-old female who presents to the ED for chief complaint of N/V/D. Vitals are normal. Exam shows mild suprapubic tenderness but otherwise is unremarkable. She is well-appearing on exam. Patient did make a complaint of dark stools and dark emesis, however guaiac stool test is negative. Lab work remarkable for elevated AST, ALT, alk-phos at 1285, 1687, 372 respectively. Lipase is normal and bilirubin is normal. Albumin normal as well. Mild leukopenia with white count of 3.8, could be consistent with a viral syndrome. Platelets and H&H are normal. PT INR normal. BUN slightly elevated at 29 today with mildly low bicarb of 18, consistent with dehydration due to a GI illness. Urinalysis negative for infection. Acetaminophen level normal. Hepatitis labs are coming back negative initially. CT abdomen pelvis IV contrast: IMPRESSION: Large hiatal hernia with eccentric mural thickening and edema within the portion of the hernia within the chest. This hernia was seen on lateral view of the chest in 2019, but is significantly larger since that time. No additional acute findings, as detailed above. Suspect presentation today is due to either a viral or autoimmune hepatitis. Discussed the case with GI who will follow-up on this patient. She is currently stable, asymptomatic and requesting to be discharge home. We discussed very strict return precautions due to the nature of her complaints and these elevated liver enzymes. She understands that she needs to follow-up closely with both her PCP and Dr. Meneses regarding her findings today. She will be discharged in stable condition. Discharge Plan Discharge Clinical Impression: Nausea and vomiting, Elevated liver enzymes Patient Disposition: Home, Self-Care Condition: Stable Instructions: Antibiotic Form Additional Instructions: Your exam and imaging today are reassuring overall. Please take Zofran for nausea and omeprazole for relief of gastritis. Follow-up with GI and PCP on this issue. Stay well hydrated. If you have any new or worsening symptoms please return to the ER for further evaluation. Patient Language: Icelandic Prescriptions: New ondansetron 4 mg tablet,disintegrating 4 mg PO Q8H PRN (Reason: nausea and vomiting) Qty: 10 0RF omeprazole 40 mg capsule,delayed release(DR/EC) 40 mg PO DAILY Qty: 30 0RF No Action Abilify atorvastatin [Lipitor] 40 mg Tablet 40 mg PO DAILY lamotrigine [Lamictal] 200 mg Tablet 300 mg PO DAILY lisinopril [Zestril] 20 mg Tablet 20 mg PO DAILY dextroamphetamine-amphetamine [Adderall] 30 mg Tablet 30 mg PO BID modafinil [Provigil] 200 mg Tablet 200 mg PO QAM fluoxetine [Prozac] 10 mg Capsule 10 mg PO TID azithromycin 250 mg tablet See Rx Instructions .ROUTE .COMPLEX Qty: 6 0RF Rx Instructions: take 500 mg today (day 1), then 250 mg for 4 days (days 2-5) levofloxacin 250 mg tablet 250 mg PO DAILY 2 Days Qty: 2 0RF ferrous gluconate 240 mg (27 mg iron) tablet 240 mg PO EVERY OTHER DAY Qty: 15 0RF Follow-up/Referrals: Nikolas Meneses MD [Physician] - UNKNOWN,DOCTOR [Primary Care Provider] - Time of Disposition: 00:19
[2024-10-23 21:35] VITALS: PULSE 61; RESP 20; O2SAT 100
[2024-10-23 21:35] LABS: Hematocrit 37.1 % (37.0-47.0); Mean Corpuscular HGB Conc 32.3 g/dl (32-36); Mean Corpuscular Volume 92.8 fl (80-100); Mean Platelet Volume 10.1 fl (7.4-10.4); Platelet Count Result 217 k/mm3 (150-375); Red Cell Distribution Width 12.9 % (11.5-14.5); White Blood Count 3.8 K/mm3 (4.5-10.0)
--- OUTSIDE RECORDS SUMMARY | 2024-10-23 21:43 | XMS_ITS | Encounter Summary ---
Author Organization [facility] Address 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 Gender Identity Not on file Sexual Orientation Not on file documented as of this encounter Last Filed Vital Signs Vital Sign Reading Time Taken Comments Blood Pressure 134/85 07/25/2007 11:45 AM DOCUMENT CLERK Pulse 77 07/25/2007 11:45 AM DOCUMENT CLERK Temperature 36.1 C (96.9 F) 07/25/2007 11:45 AM DOCUMENT CLERK Respiratory Rate - - Oxygen Saturation - - Inhaled Oxygen Concentration - - Weight 60.8 kg (134 lb) 07/25/2007 11:45 AM DOCUMENT CLERK Height - - Body Mass Index - - documented in this encounter Plan of Treatment Not on file documented as of this encounter Visit Diagnoses Not on filedocumented in this encounter Care Teams Audio Production Engineer Relationship Specialty Start Date End Date Kylie Reynolds MD NO ADDRESS ON FILE PCP - General 01/23/01 02/25/16 documented as of this encounter
--- OUTSIDE RECORDS SUMMARY | 2024-10-23 21:43 | XMS_ITS | Encounter Summary ---
Author Organization [facility] Address [address] [place] [address] Care Team Providers Care Organic Search Lead Name Role Phone Kylie Reynolds MD Primary Care Provider Unavailab le Encounter Details Date Type Department Care Team (Late st Contact Info) Description 08/27/2007 Orders Only 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
--- OUTSIDE RECORDS SUMMARY | 2024-10-23 21:43 | XMS_ITS | Encounter Summary ---
Author Organization [employer] Address [address] [place] [address] Care Team Providers Care Commercial Insulator Name Role Phone Kylie Reynolds MD Primary Care Provider Unavailab le Encounter Details Date Type Department Care Team (Late st Contact Info) Description 06/13/2007 Outpatient [facility] [address] [place] [address] 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
--- OUTSIDE RECORDS SUMMARY | 2024-10-23 21:44 | XMS_ITS | Clinical Summary ---
Author Organization [facility] [email or web address] Address [address] [place] [address] Care Team Providers Care Marketing Communication Manager Name Role Phone Estuardo Crandall MD Primary Care Provider [phone] Source Comments [facility],non-owned Affiliates and Associated Physician Practices is amultiple site organization consisting of ambulatory clinics and hospital sitesin [place], [place], [place] and [place]. This disclosure is being madepursuant to the Care Everywhere program and may not contain all information available regarding this patient. Last updated 18.[email or web address] Medications * Be aware that medications may not be up to date on this document. Alwaysverify current medications with the patient. Medication Sig Dispensed Refills Start Date End Date Status lamoTRIgine (LAMICTAL) 200 MG tablet Take 200 mg by mouth 2 times daily 02/19/2017 Active FLUoxetine (PROZAC) 20 MG capsule Take 30 mg by mouth once daily 02/19/2017 Active lisinopril (PRINIVIL; ZESTRIL) 20 MG tablet Take 20 mg by mouth once daily 02/19/2017 Active atorvastatin (LIPITOR) 20 MG tablet Take 20 mg by mouth at bedtime 02/19/2017 Active methylphenidate (RITALIN) 20 MG tablet Take 40 mg by mouth Every morning and lunchtime 02/19/2017 Active ARIPiprazole (ABILIFY) 5 MG tablet Take 5 mg by mouth once daily 02/19/2017 Active Social History Tobacco Use Types Packs/Day Years Used Date Smoking Tobacco: Never Assessed Sex and Gender Information Value Date Recorded Sex Assigned at Female 11/08/2021 12:17 PM SERVICE COUNTER CASHIER Gender Identity Female 11/08/2021 12:17 PM SERVICE COUNTER CASHIER Sexual Orientation Straight 11/08/2021 12 :17 PM SERVICE COUNTER CASHIER Last Filed Vital Signs Vital Sign Reading Time Taken Comments Blood Pressure 100/59 02/19/2017 7:56 PM CDT Pulse 62 02/19/2017 7:56 PM CDT Temperature 36.8 C (98.3 F) 02/19/2017 7:56 PM CDT Respiratory Rate 16 02/19/2017 7:56 PM CDT Oxygen Saturation 94% 02/19/2017 7:56 PM CDT Inhaled Oxygen Concentration - - Weight - - Height - - Body Mass Index - - Plan of Treatment Health Maintenance Due Date Last Done Comments BONE DENSITY TESTING 1950 COLOGUARD (AGES 45-75) - COL ON CA SCREENING 1950 COLON MONITORING 1952 COLONOSCOPY - COLON CA SCREENING 1952 CT COLONOGRAPHY - COLON CA SCREENING 1950 Colorectal Cancer Screening 1950 FIT - COLON CA SCREENING 1952 FLEX SIG - COLON CA SCREENING 1950 MAMMOGRAM 1950 HEPATITIS C SCREENING 03/16/1970 DTAP/TDAP/TD VACCINES (1 - Tdap) 1971 PNEUMOCOCCAL VACCINE 50+ (1 of 1 - PCV) 2002 ZOSTER VACCINE (1 of 2) 2002 COVID-19 VACCINE ( - 2023-2 5 season) 2024 INFLUENZA VACCINE (#1) 2024 DEPRESSION SCREENING 09/18/2024 Respiratory Syncytial Virus (RSV) Vaccine Pt: or over 60 yrs (1 - 1-dose 75+ series) 2027 HEPATITIS B VACCINE Aged Out No longe r eligible based on patient's age to complete this topic HIB VACCINE Aged Out No longer eligi ble based on patient's age to complete this topic HPV VACCINE Aged Out No longer eligi ble based on patient's age to complete this topic MENINGOCOCCAL (Group B) VACCINE Aged Out No longer eligible based on patient's age to complete this topic MENINGOCOCCAL VACCINE Aged Out No sherly cristina eligible based on patient's age to complete this topic Care Teams Marketing Communication Manager Relationship Specialty Start [place] [id number] [phone] PCP - General 05/06/19
--- OUTSIDE RECORDS SUMMARY | 2024-10-23 21:44 | XMS_ITS | Encounter Summary ---
Author Organization [facility] Address [address] [place] [address] Care Team Providers Care Printing Worker Supervisor Name Role Phone Kylie Reynolds MD Primary Care Provider Brennan hagan Encounter Details Date Type Department Care Team (Latest Contact Info) Description 07/20/2006 Outpatient Historical [facility] Family Medicine [address] [place] [address] Kylie Reynolds MD NO ADDRESS ON FILE Other and Unspecified Hyperlipidemia (Primary Dx) Social History Tobacco Use Types Packs/Day Years Used Date Smoking Tobacco: Never Assessed Comments Unknown Sex and Gender Information Value Date Recorded Sex Assigned at Not on file Legal Sex Female 5:26 AM NEEDLE GRADER Gender Identity Not on file Sexual Orientation Not on file documented as of this encounter Plan of Treatment Not on file documented as of this encounter Procedures Procedure Name Priority Date/Time Associated Diagnosis Comments URINALYSIS W/REFLEX MICROSCOPIC Routine 07/20/2006 10:19 AM NEEDLE GRADER LIPID PANEL Routine 07/20/2006 10:19 AM NEEDLE GRADER documented in this encounter Results * (ABNORMAL) URINALYSIS (07/20/2006 10:19 AM NEEDLE GRADER) COLOR UA Yellow INTERFACE SYSTEM CLARITY UA Clear Clear INTERFACE SYSTEM SPECIFIC GRAVITY UA 1.013 1.001 - 1.035 INTERFACE SYSTEM PH UA 7.0 5.0 - 8.0 INTERFACE SYSTEM LEUKOCYTE ESTERASE UA 2+(A) Negative INTERFACE SYSTEM NITRITE UA Negative Negative INTERFACE SYSTEM PROTEIN UA Negative Negative INTERFACE SYSTEM GLUCOSE UA Negative Negative INTERFACE SYSTEM KETONES UA Negative Negative INTERFACE SYSTEM UROBILINOGEN UA <1 <=1 mg/dL INTE RFACE SYSTEM BILIRUBIN UA Negative Negative INTERFA CE SYSTEM BLOOD UA Negative Negative INTERFACE SYSTEM WBC UA 9(H) 0 - 5 /HPF INTERFACE SYSTEM RBC UA 1 0 - 4 /HPF INTERFACE SYSTEM EPITHELIAL CELLS, URINE 2-5 /HPF INTERFACE SYSTEM 07/20/2006 10:1 9 AM NEEDLE GRADER us Kylie Reynolds MD URINE ORDERABLES Final Result Performing Organization Address [facility] Phone Number INTERFACE SYSTEM Refer to clinic/hospital department * (ABNORMAL) LIPID PANEL (07/20/2006 10:19 AM NEEDLE GRADER) CHOLESTEROL 206(H) 100 - 199 mg/dL INTERFACE SYSTEM TRIGLYCERIDE 61 10 - 149 mg/dL INTERFACE SYSTEM HDL 84(H) 40 - 59 mg/dL INTERFACE SYSTEM CHOL/HDL RATIO 2.5 2.0 - 5.0 INTER FACE SYSTEM LDL CALCULATED 110(H) <=99 mg/dL INTERFACE SYSTEM LIPID PANEL COMMENT See Below INTERFACE SYSTEM Comment: The adult ATP and pediatric NCEP classifications for lipids are available on the [facility] Intranet at: [email or web address] Select: Lab Policies and Procedures Select: Reference Ranges - Lipids 07/20/2006 10:1 9 AM NEEDLE GRADER Kylie Reynolds MD CHEMISTRY ORDERABLES Final Resul t Performing Organization Address [facility] Co de Phone Number INTERFACE SYSTEM Refer to clinic/hospital department documented in this encounter Visit Diagnoses Diagnosis Other and unspecified hyperlipidemia- Primary documented in this encounter Care Teams Printing Worker Supervisor Relationship Specialty Start Date End Date Kylie Reynolds MD NO ADDRESS ON FILE PCP - General 01/23/01 02/25/16 documented as of this encounter
--- OUTSIDE RECORDS SUMMARY | 2024-10-23 21:44 | XMS_ITS | Data Portability ---
Author Organization [facility] Address [address] [place] [address] Assessment No assessment recorded. Plan of Treatment Reminders Order Date Submit Date Provider Last Modified By Organization Details Last Modified Time Details Appointments None recorded. Lab CBC 2014 015 TESSA CANO, [address] [place] [address], [facility] [address], [place], [address], 5 06:30:55 CMP, serum or plasma 2014 015 TESSA JEROME, [address] [place] [address], [facility] [address], [place], [address], 5 06:30:56 lipid panel, serum 2014 [facility] [address] [place] [address], [facility] [address], [place], [address], 5 06:30:56 Referral sleep medicine referral 2014 015 TESSA Vasquez Rai, [address] [facility], [address], [place], [address], 5 11:14:22 gastroenter ologist referral 2014 016 TESSA Angeles DO, [address] [facility], [facility] [address], [place], [address], 6 16:03:59 Procedures None recorded. Surgeries None recorded. Imaging MAMMO, screening, digital, bilateral 2015 016 TESSA Not available 6 13:31:00 bone density study - H/O Vertebral fracture,Os teopenia 2015 016 TESSA Ramos [facility], [address] [place] [address] , [place], [address], 6 13:21:57 x-ray, toe(s) - Left big toe pain and sweling.Pal let fell on the left foot. 2015 016 jairo 1 Not available 6 09:09:07 Medication Orders Calcium 600 + D(3) 600 mg-10 mcg (400 unit) tablet 2015 016 [facility] [address] [facility] , [place], [place], [id number], 6 13:42:05 Patient TargetsNo targets recorded. Patient Instructions Encounter Date Encounter Id Patient Instructions Last Modified By Organization Details Last Modified Time 06/24/2015 [id number] sleep apnea: car e instructions kkunche Not available 06/24/2015 12:20:08 learning about h igh blood pressure kkunche Not available 06/24/2015 12:20:08 Bipolar disorder,Depression,AD HD -following Psychiatrist. kkunche Not available 06/24/2015 12:20:08 06/29/2015 [id number] back care and preventing injuries: care instructions [email or web address] Not available 06/29/2015 15:53:01 10/21/2015 [id number] earwax blockage: care instructions kkunche Not available 10/21/2015 13:42:05 learning about b reast cancer screening kkunche Not available 10/21/2015 13:42:05 learning about h igh blood pressure kkunche Not available 10/21/2015 13:42:05 12/14/2015 [id number] DEXA scan report discussed with the patient.Patient was already referred to Gastroenteroligist for screening colonoscopy.waiting for appointment. [email or web address] Not available 12/14/2015 16:33:40 Reason for Referral Referring Physician: Aaron Kothari, Internal Medicine, Encounter Date: 06/24/2015 Referring Physician: Aaron Kothari, Internal Medicine, Encounter Date: 06/24/2015 Results Created Date Observation Date Name Description Value Unit Range Abnormal Flag Note LastModifiedBy Organization Detail LastModifiedTime 07/01/2007/02/2015 CBC WBC 4.5 x10e3 /uL 3.4-10 .8 Not Available [facility] ([facility]) [address] [place], [address], 07/02/2015 06:30:55 07/01/2007/02/2015 CBC RBC 4.28 x10e6 /uL 3.77-5 .28 Not Available [facility] ([facility]) [address] [place], [address], 07/02/2015 06:30:55 07/01/2007/02/2015 CBC hemoglobin 12.9 g/dL 11.1-1 5.9 Not Available [facility] ([facility]) [address] [place], [address], 07/02/2015 06:30:55 07/01/2007/02/2015 CBC hematocrit 39.7 % 34.0-4 6.6 Not Available [facility] ([facility]) [address] [place], [address], 07/02/2015 06:30:55 07/01/2007/02/2015 CBC MCV 93 fL 79-97 Not Available [facility] ([facility]) [address] [place], [address], 07/02/2015 06:30:55 07/01/2007/02/2015 CBC MCH 30.1 pg 26.6-3 3.0 Not Available [facility] ([facility]) [address] [place], [address], 07/02/2015 06:30:55 07/01/2007/02/2015 CBC MCHC 32.5 g/dL 31.5-3 5.7 Not Available [facility] ([facility]) [address] [place], [address], 07/02/2015 06:30:55 07/01/2007/02/2015 CBC RDW 13.4 % 12.3-1 5.4 Not Available [facility] ([facility]) [address] [place], [address], 07/02/2015 06:30:55 07/01/2007/02/2015 CBC NRBC PIPE BUFFER Not Available [facility] ([facility]) [address] [place], [address], 07/02/2015 06:30:55 07/01/2007/02/2015 CMP, serum or plasm a glucose, serum 92 mg/dL 65-99 Not Available [facility] ([facility]) [address] [facility] [place], [address], 07/02/2015 06:30:55 07/01/2007/02/2015 CMP, serum or plasm a BUN 22 mg/dL 8-27 Not Available [facility] ([facility]) [address] [place], [address], 07/02/2015 06:30:55 07/01/2007/02/2015 CMP, serum or plasm a creatinine, serum 0.84 mg/dL 0.57-1 .00 Not Available [facility] ([facility]) [address] [facility] [place], [address], 07/02/2015 06:30:55 07/01/2007/02/2015 CMP, serum or plasm a eGFR if nonafricn AM 74 mL/mi n/1.7 3 >59 Not Available [facility] ([facility]) [address] [place], [address], 07/02/2015 06:30:55 07/01/2007/02/2015 CMP, serum or plasm a eGFR if africn AM 86 mL/mi n/1.7 3 >59 Not Available [facility] ([facility]) [address] [place], [address], 07/02/2015 06:30:55 07/01/2007/02/2015 CMP, serum or plasm a BUN/creatini ne ratio 26 11-26 Not Available [facility] ([facility]) [address] [facility] [place], [address], 07/02/2015 06:30:55 07/01/2007/02/2015 CMP, serum or plasm a sodium, serum 138 mmol/ L 134-14 4 Not Available [facility] ([facility]) [address] [facility] [place], [address], 07/02/2015 06:30:55 07/01/2007/02/2015 CMP, serum or plasm a potassium, serum 5.0 mmol/ L 3.5-5. 2 Not Available [facility] ([facility]) [address] [place], [address], 07/02/2015 06:30:55 07/01/2007/02/2015 CMP, serum or plasm a chloride, serum 100 mmol/ L 97-108 Not Available [facility] ([facility]) [address] [facility] [place], [address], 07/02/2015 06:30:55 07/01/2007/02/2015 CMP, serum or plasm a carbon dioxide, total 23 mmol/ L 18-29 Not Available [facility] ([facility]) [address] [facility] [place], [address], 07/02/2015 06:30:55 07/01/2007/02/2015 CMP, serum or plasm a calcium, serum 9.3 mg/dL 8.7-10 .3 Not Available [facility] ([facility]) [address] [facility] [place], [address], 07/02/2015 06:30:55 07/01/2007/02/2015 CMP, serum or plasm a protein, total, serum 6.6 g/dL 6.0-8. 5 Not Available [facility] ([facility]) [address] [place], [address], 07/02/2015 06:30:55 07/01/2007/02/2015 CMP, serum or plasm a albumin, serum 4.4 g/dL 3.6-4. 8 Not Available [facility] ([facility]) [address] [place], [address], 07/02/2015 06:30:55 07/01/2007/02/2015 CMP, serum or plasm a globulin, total 2.2 g/dL 1.5-4. 5 Not Available [facility] ([facility]) [address] [place], [address], 07/02/2015 06:30:55 07/01/2007/02/2015 CMP, serum or plasm a A/G ratio 2.0 1.1-2. 5 Not Available [facility] ([facility]) [address] [place], [address], 07/02/2015 06:30:55 07/01/2007/02/2015 CMP, serum or plasm a bilirubin, total 0.3 mg/dL 0.0-1. 2 Not Available [facility] ([facility]) [address] [place], [address], 07/02/2015 06:30:55 07/01/2007/02/2015 CMP, serum or plasm a alkaline phosphatase, S 64 IU/L 39-117 Not Available [facility] ([facility]) [address] [place] [address], [address], 07/02/2015 06:30:55 07/01/2007/02/2015 CMP, serum or plasm a AST (SGOT) 28 IU/L 0-40 Not Available [facility] ([facility]) [address] [facility], [place], [address], 07/02/2015 06:30:55 07/01/2007/02/2015 CMP, serum or plasm a ALT (SGPT) 24 IU/L 0-32 Not Available [facility] ([facility]) [address] [facility], [place], [address], 07/02/2015 06:30:55 07/01/2007/02/2015 lipid panel , serum cholesterol, total 201 mg/dL 100-19 9 above high normal EFF ECTIV E OCTOB ER 2014 THE REFER ENCE INTER LEIGH ANN FOR GALINA STERO L, TOTAL WILL BE GUILLEN ING TO: 0 - 19 YEARS 100 - 169 >19 YEARS 100 - 199 Not Available [facility] ([facility]) [address] [facility], [place], [address], 07/02/2015 06:30:56 07/01/2007/02/2015 lipid panel , serum triglyceride s 80 mg/dL 0-149 EFF ECTIV E OCTOB ER 2014 THE REFER ENCE INTER LEIGH ANN FOR TRIGL YCERI JEFFREY WILL BE GUILLEN ING TO: 0 - 9 YEARS 0 - 74 10 - 19 YEARS 0 - 89 >19 YEARS 0 - 149 Not Available [facility] ([facility]) [address] [facility], [place], [address], 07/02/2015 06:30:56 07/01/2007/02/2015 lipid panel , serum HDL cholesterol 62 mg/dL >39 ACCOR DING TO ATP-I II GUIDE LINES , HDL-C >59 MG/DL IS CONSI DERED A NEGAT MATTHEW RISK FACTO R FOR CHD. Not Available [facility] ([facility]) [address] [facility], [place], [address], 07/02/2015 06:30:56 07/01/2007/02/2015 lipid panel , serum VLDL cholesterol cira 16 mg/dL 5-40 Not Available [facility] ([facility]) [address] [facility], [place], [address], 07/02/2015 06:30:56 07/01/20 15 07/02/2015 lipid panel , serum LDL cholesterol calc 123 mg/dL 0-99 above high normal EFF ECTIV E OCTOB ER 2014 THE REFER ENCE INTER LEIGH ANN FOR LDL GALINA STERO L CALC WILL BE GUILLEN ING TO: 0 - 19 YEARS 0 - 109 >19 YEARS 0 - 99 Not Available [facility] ([facility]) [address] [facility], [place], [address], 07/02/2015 06:30:56 07/01/2007/02/2015 lipid panel , serum comment: PIPE BUFFER Not Available [facility] ([facility]) [address] [facility], [place], [address], 07/02/2015 06:30:56 07/06/20 15 10/29/2013 imagi ng/di agnos tic resul t No observ ation record ed. BARCODE Not Available 2014 13:04:41 11/13/19 16 11/13/2015 MAMMO , scree mat, digit al, bilat eral No observ ation record ed. [email or web address] [address] , [place], [address], 11/15/2015 19:44:40 11/13/19 16 11/13/2015 bone densi ty study No observ ation record ed. [email or web address] [place] [address] [place], [address], 11/17/2015 16:29:24 11/16/19 16 11/13/2015 imagi ng/di agnos tic resul t No observ ation record ed. [email or web address] Not Available 2015 14:27:51 02/18/20 16 MAMMO , scree mat, digit al, bilat eral No observ ation record ed. [email or web address] Not Available 2015 11:57:31 Result Notes None recorded. Problems Name Problem SNOMED Code Status Onset Date Resolution Date Notes Provider Name and Address Organization Details Recorded Time Essential hypertensi on 21814971 HERNANDEZ [place], [place] - [facility] 6 15:02:56 Depressive disorder 11697624 HERNANDEZ [place], [place] - [facility] 6 15:02:56 Anxiety 35659120 HER[place]NDEZ [place] [facility] 6 15:02:56 Bipolar disorder 34363393 HERNANEDZ [place], [place] - [facility] 6 15:02:56 Attention deficit hyperactiv ity disorder 059009999 HERNANDEZ [place], [place] - [facility] 6 15:02:56 Hyperlipid emia 62348143 HERNANDEZ [place], [place] - [facility] 6 15:02:56 Narcolepsy 71693949 HERNANDEZ [place], [place] - [facility] 6 15:02:56 Obstructiv e sleep apnea syndrome 36596439 HERNANDEZ [place] - [facility] 6 15:02:56 Osteopenia 034935057 HERNANDEZ [place], [place] - [facility] 6 15:02:56 Low back pain 153335002 HER[place]DEZ [place] [facility] 6 15:02:56 Compressio n fracture Active L1 vertebrae HERNANDEZ [place] - [facility] 6 15:02:56 Impacted cerumen 51532553 Active HER[place]NDEZ [place] [facility] 6 15:02:56 Pain in wrist 54600902 Active HERNANDEZ [place] [facility] 6 15:02:56 Pain in toe 098366743 Active [place] [facility] 6 16:38:12 Pain in thumb 878172482 Active [place], [place] - [facility] 6 16:38:12 Problem Notes None recorded. Procedures Surgical History Date Name Laterality Status Provider Name and Address Organization Details Recorded Time 10/21/19 16 Cerumen Removal completed Aaron Kothari [facility] 10/21/2015 13:38:32 Eye Surgery completed Angie HERNANDEZ martinez [facility] 06/24/2015 11:01:39 Tonsillectomy completed Angie HERNANDEZ martinez [facility] 06/24/2015 11:01:39 Dilation and Curettage completed Angie Wan MA [facility] 06/24/2015 11:01:39 Imaging Results Imaging Date Name Status [facility]Modified by [facility] Details LastModified Time 10/29/2013 imaging/diagno stic result completed BAR[facility] Information not available 07/06/2015 13:04:41 11/13/2015 MAMMO, screening, digital, bilateral completed [email or web address] [address] [place], [address], 11/15/2015 19:44:40 11/13/2015 bone density study completed [email or web address] [address] [place], [address], 11/17/2015 16:29:24 11/13/2015 imaging/diagno stic result completed [facility] Information not available 11/17/2015 14:27:51 02/18/2016 MAMMO, screening, digital, bilateral completed [email or web address] Information not available 02/19/2016 11:57:31 Procedure Notes None recorded. Medical Equipment None Reported. Allergies No known drug allergies Medications Name Sig Start Date Stop Date Status Note LastModified by Organization Details LastModified Time Prescription - Prior Authorization Request active Not Available Not Available Not Available fluoxetine 40 mg capsule active Not Available Not Available N ot Available atorvastatin 40 mg tablet Take 1 tablet by mouth daily 2015 active Not Available Not Available Not Avai lable alendronate 10 mg tablet Take 1 tablet by mouth every week by oral route 2015 active Not Available Not Available Not Avai lable lamotrigine 200 mg tablet Take 1.5 tablets every day by oral route. active Not Available Not Available No t Available methylphenidat e 20 mg tablet Take 1 tablet twice a day by oral route. active Not Available Not Available No t Available alendronate 70 mg tablet Take 1 tablet by mouth every week active Not Available Not Available No t Available clonazepam 0.5 mg tablet active Not Available Not Available No t Available fluoxetine 10 mg capsule Take 3 capsules every day by oral route. active Not Available Not Available No t Available lisinopril 30 mg tablet Take 1 tablet by mouth daily 2015 active Not Available Not Available Not Avai lable Abilify 5 mg tablet Take 1 tablet every day by oral route. active Not Available Not Available No t Available Calcium 600 + D(3) 600 mg-10 mcg (400 unit) tablet Take 1 tablet twice a day by oral route. 2015 active Not Available Not Available Not Avai lable Fluarix Quad 3573-3823 (PF) 60 mcg (15 mcg x 4)/0.5 mL IM syringe active Not Available Not Available Not Available Vitals Date Recorded Respiratory rate Body weight Oxygen saturation Oxygen saturation in Arterial blood by Pulse oximetry Body height Body mass index (BMI) Body temperature Heart rate Systolic blood pressure Diastolic blood pressure Provider Name and Address Organization Details Last Updated DateTime 5 14 /min 86076.0 0209 g 97 % 97 % 165.1 cm 26.1 kg/m2 98 [degF] 60 /min 110 mm[Hg] 60 mm[Hg] Angie balderas MA [facility] 5 11:19:21 Date Recorded Respiratory rate Body weight Oxygen saturation Oxygen saturation in Arterial blood by Pulse oximetry Body height Body mass index (BMI) Heart rate Body temperature Systolic blood pressure Diastolic blood pressure Provider Name and Address Organization Details Last Updated DateTime 5 16 /min 06870.6 3261 g 97 % 97 % 165.1 cm 25.5 kg/m2 74 /min 98.7 [degF] 120 mm[Hg] 70 mm[Hg] Angie balderas [place] - [facility] 5 14:14:44 Date Recorded Body weight Heart rate Body height Body temperature Oxygen saturation Oxygen saturation in Arterial blood by Pulse oximetry Body mass index (BMI) Respiratory rate Systolic blood pressure Diastolic blood pressure Provider Name and Address Organization Details Last Updated DateTime 6 03639.0 0209 g 66 /min 165.1 cm 98.1 [degF] 96 % 96 % 26.1 kg/m2 16 /min 100 mm[Hg] 60 mm[Hg] Angie balderas [place] - [facility] 6 09:11:33 Date Recorded Body temperature Oxygen saturation Oxygen saturation in Arterial blood by Pulse oximetry Body height Heart rate Body weight Body mass index (BMI) Systolic blood pressure Diastolic blood pressure Provider Name and Address Organization Details Last Updated DateTime 6 98.4 [degF] 98 % 98 % 165.1 cm 74 /min 37208.4 26924 g 26.8 kg/m2 114 mm[Hg] 78 mm[Hg] Doretha Gautam MA [facility] 6 15:02:56 Social History Question Answer Notes LastModified by Organizat ion Details LastModified Time Tobacco Smoking Status Former Smoker Angie Wan MA dwayne, [facility] 06/24/2015 11:01:39 What Is Your Level Of Alcohol Consumption? None Former (wine) Information not available 06/24/2015 How Much Tobacco Do You Smoke? 1 PPD Information not available 06/24/2015 Sex: Unknown Functional Status None recorded. Mental Status None recorded. Family History Relationship Description Onset Age of this Age Resolved Age Notes LastModified by Organization Details LastModified Time Mother Family history of stroke sattebery Not available 2015 15:02:56 Mother Coronary arterioscler osis sattebery Not available 2015 15:02:56 Mother Depressive disorder sattebery Not available 2015 15:02:56 Mother Disorder of thyroid gland sattebery Not available 2015 15:02:56 Mother Heart disease sattebery Not available 2015 15:02:56 Father Coronary arterioscler osis sattebery Not available 2015 15:02:56 Father Heart disease sattebery Not available 2015 15:02:56 Father Essential hypertension sattebery Not available 15:02:56 Father Kidney disease sattebery Not available 2015 15:02:56 Sister Depressive disorder sattebery Not available 2015 15:02:56 Sister Hyperlipidem ia sattebery Not available 2015 15:02:56 Medical History Condition Response Coronary Artery Disease N Other N Atrial Fibrillation N High Blood Pressure Y Thyroid Problems N Kidney or Bladder Problems N Depression Y COPD N Blood Clots Y GI Problems N Skin Problems N Anemia Y Heart Attack (AL) N Diabetes N Anxiety Disorder Y Muscle, Joint, or Bone Problems N Seizures/Epilepsy N Acid Reflux (GERD) N Cancer N Stroke N Allergies Y Asthma N High Cholesterol Y Hepatitis N Liver Disease N Headaches N Osteoporosis N Heart Failure N Gynecological HistoryNo gynecological history recorded. Obstetrics History GPAL:G 0 P 0 0 0 0 Immunizations Vaccine Type Date Status Note Provider Nam e and Address Organization Details Recorded Time COVID-19, mRNA, LNP-S, PF, 30 mcg/0.3 mL dose 1 completed [facility] Jody, LPN null, [place] - [facility] 02/08/2021 13:16:32 COVID-19, mRNA, LNP-S, PF, 30 mcg/0.3 mL dose 1 completed [facility] Jody, LPN [place], [place] [facility] 02/08/2021 13:17:05 Tdap 1 completed Angie Wan [place], [place] [facility] 06/24/2015 11:01:39 Influenza, split virus, quadrivalent, preservative 5 completed Aaron Kothari [place], [place] - [facility] 06/24/2015 11:58:42 Past Encounters Encounter ID Performer Location Encounter Start Date Encounter Closed Date Diagnosis/Indication Diagnosis SNOMED-CT Code Diagnosis ICD10 Code Diagnosis Note [id number] [facility] (Adult Med) [address] [place] [address] 06/24/2015 10:24:05 06/24/2015 12:28:43 Essential hypertension 02156286 I10 Blood pressure well controlled . Continue Lisinopril 30 mg po daily. Continue regular exercise. Hyperlipidemia 68520979 E78.5 Continue Lipitor 40 mg po daily. Do Lipid panel. Obstructiv e sleep apnea syndrome 39184893 G47.33 Patient has sleep apnea. She is on CPAP for 6-7 hours at night.Last sleep study was done 5 years ago. C/o Hypersomni a,also has Narcolepsy .Takes Ritalin. Refer to Sleep Medicine Screening for malignant neoplasm of colon 023828393 Z12.11 [id number] [facility]ir (Adult Med) [address] [place] [address] 06/29/2015 13:59:37 06/29/2015 15:52:39 Low back pain 917424520 M54.5 H/o chronic Back pain. H/o Vertebral fracture in 2010. Last DEXA SCAN on 10/29/13 showed osteopenia . Advised patient to take otc Ibuprofen, rest,heati ng pad and back exercises. If the pain is not improving , refer to Physical therapy. Obtain the previous MRI reports. [id number] Aaron Norwood (Adult Med) [address] [place] [address] 10/21/2015 09:00:24 10/21/2015 16:44:10 Essential hypertension 91641121 I10 Blood pressure well controlled . Continue Lisinopril 30 mg po daily. Continue regular exercise. Hyperlipidemia 98702742 E78.2 Continue Lipitor 40 mg po daily. Regular exercise and diet control advised. Osteopenia 478365793 M85 .80 Repeat the Bone density scan. H/O L1 vertebral compressio n fracture. Advised patient to take Calcium and Vitamin D. Impacted cerumen 5199454 6 H61.23 Ear irrigation done . wax removed from both the ears. Pain in wrist 37485339 M 25.531 M25.532 Patient is c/o b/l wrist pain. Advised patient to use the wrist brace. Avoid repeated wrist joint movements. Screening for malignant neoplasm of breast 405804051 Z12.39 [id number] Aaron Norwood (Adult Med) [address] [place] [address] 12/14/2015 14:53:24 12/15/2015 09:09:07 Pain in toe 342092284 M79.675 Left big toe pain and sweling.Pa llet fell on the left foot. X ray toes left to rule out fracture. Ibuprofen otc as needed for the pain. Pain in thumb 627200514 M79.641 M79.642 Advised patient to try otc Ibuprofen as needed. Use Wrist splint. Avoid repetitive movements. Health Concerns Section Related Observation LastModified by Organization Detai ls LastModified Time None Recorded Concern Status LastModified by Organization Details LastModified Time None Recorded Advance Directives Directive None Recorded Payers Encounter Date Sequence Insurance Name Policy Number Policy Elias Covered Member ID Elias Member ID Guarantor Name 06/24/2015 1 [facility] (MEDICARE REPLACEMENT/A DVANTAGE - HMO) [id number] Rina Pereztes [id number] Rina Gonsales 06/29/2015 1 [facility] (MEDICARE REPLACEMENT/A DVANTAGE - HMO) [id number] Rina A Gonsales [id number] Rina Gonsales 10/21/2015 1 [facility] (MEDICARE REPLACEMENT/A DVANTAGE - HMO) [id number] Rina A Gonsales [id number] Rina Gonsales 12/14/2015 1 [facility] (MEDICARE REPLACEMENT/A DVANTAGE - HMO) [id number] Rina A Gonsales [id number] Rina Gonsales Notes Date Note Type Note Provider Name and Address Organization Details Recorded Time 10/21/19 16 text/htm l Generic HPI TemplateReported bypatient.Notes:c/o b/l ear waxHyperlipidemiaReported bypatient.Type of hyperlipidemia:combined Duration:chronic Control:usually well controlled Compliance:compliant; compliant with diet; exercisesHypertension F/UReported bypatient.Associated Symptoms:no dizziness; no lightheadedness; no chest pain; no shortness of breath; no palpitations; no edema; no calf pain with exertion Lifestyle:regular exercise; limiting/avoiding salt Medications:taking medications as directed; no side effects from medicationMusculoskeletal PainReported bypatient.Location:bilateral wrist Quality:sharp Severity:pain level with meds 6/10 Duration:present for 6-12 months Timing:intermittent Context:overuse Aggravating factors:movement/positioning; bending over; twisting Aaron rice [place] - [facility] 10/21/2015 13:42:21 12/14/19 16 text/htm l Generic HPI TemplateReported bypatient.Notes:c/o pain at base of the both thumbs X 6 months.Pain aggravates with wrist movements.Musculoskeletal PainReported bypatient.Location:great toe; Left great toe pain Severity:pain level without meds 6/10 Duration:3 weeks. Context:Pallet fell on the left great toe x 3 weeks ago Aggravating factors:movement/positioning; bending over Associated Symptoms:no feverNotes:c/o pain at the left great toe X 3 weeks. Aaron rice [place] - [facility] 12/14/2015 16:38:32 OBGyn Episode No OBEpisode recorded.
--- OUTSIDE RECORDS SUMMARY | 2024-10-23 21:44 | XMS_ITS | Encounter Summary ---
Author Organization [facility] Address [address] [place] [address] Care Team Providers Care Field Services Analyst Name Role Phone Kylie Reynolds MD Primary Care Provider Unavail le Encounter Details Date Type Department Care Team (Late st Contact Info) Description 10/23/2007 Outpatient Historical [facility] Family Medicine [place] [id number] [place] [address] [place] [address] [facility] [address] [place] [address] Social History Tobacco Use Types Packs/Day Years Used Date Smoking Tobacco: Never Assessed Comments Unknown Sex and Gender Information Value Date Recorded Sex Assigned at Not on file Legal Sex 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
--- OUTSIDE RECORDS SUMMARY | 2024-10-23 21:44 | XMS_ITS | Referral Summary ---
Author Organization [facility] Address [address] [place] [address] Care Team Providers Care Information Services Consultant Name Role Phone Estuardo Crandall MD Primary Care Provider [phone] Source Comments [facility],non-owned Affiliates and Associated Physician Practices is amultiple site organization consisting of ambulatory clinics and hospital sitesin [place], [place], [place] and [place]. This disclosure is being madepursuant to the Care Everywhere program and may not contain all information available regarding this patient. Last updated 18.[facility] Medications * Be aware that medications may [...] Sex Assigned at Female 11/08/2021 12:17 PM YARN CARRIER Gender Identity Female 11/08/2021 12:17 PM YARN CARRIER Sexual Orientation Straight 11/08/2021 12 :17 PM YARN CARRIER Last Filed Vital Signs Vital Sign Reading [...] Mass Index - - Plan of Treatment Not on file Care Teams Information Services Consultant Relationship Specialty [place] [address] [address] PCP - General 05/06/19
--- OUTSIDE RECORDS SUMMARY | 2024-10-23 21:44 | XMS_ITS | Encounter Summary ---
Author Organization [facility] Address [address] [place] [address] Care Team Providers Care Hard Metals Engraver Hand Name Role Phone Kylie Reynolds MD Primary Care Provider Brennan hagan Encounter Details Date Type Department Care Team (Late st Contact Info) Description 12/07/2006 Outpatient Historical [facility] Family Medicine [address] [place] [phone] Mack Ulrich MD [address] [place] [address] Social History Tobacco Use Types Packs/Day Years Used Date Smoking Tobacco: Never Assessed Comments Unknown Sex and Gender Information Value Date Recorded Sex Assigned at Not on file 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 Gender Identity Not on file Sexual Orientation Not on file documented as of this encounter Last Filed Vital Signs Vital Sign Reading Time Taken Comments Blood Pressure 113/69 12/07/2006 3:00 PM CDT Pulse 70 12/07/2006 3:00 PM CDT Temperature 36.4 C (97.6 F) 12/07/2006 3:00 PM CDT Respiratory Rate - - Oxygen Saturation - - Inhaled Oxygen Concentration - - Weight 63.1 kg (139 lb 2 oz) 12/07/2006 3:00 PM CDT Height - - Body Mass Index - - documented in this encounter Plan of Treatment Not on file documented as of this encounter Visit Diagnoses Not on filedocumented in this encounter Care Teams Hard Metals Engraver Hand Relationship Specialty Start Date End Date Kylie Reynolds MD NO ADDRESS ON FILE PCP - General 01/23/01 02/25/16 documented as of this encounter
--- OUTSIDE RECORDS SUMMARY | 2024-10-23 21:44 | XMS_ITS | Encounter Summary ---
Author Organization [facility] [place] Address [address] [place] [address] Care Team Providers Care Community Health Navigator Name Role Phone Kylie Reynolds MD Primary Care Provider Unavail le Encounter Details Date Type Department Care Team (Late st Contact Info) Description 10/23/2007 Outpatient Historical [facility] Family Medicine [place] [id number] [place] [address] [place] [address] [facility] [address] [place] [address] Social History Tobacco Use Types Packs/Day Years Used Date Smoking Tobacco: Never Assessed Comments Unknown Sex and Gender Information Value Date Recorded Sex Assigned at Not on file Legal Sex Female 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
--- OUTSIDE RECORDS SUMMARY | 2024-10-23 21:44 | XMS_ITS | Encounter Summary ---
Author Organization [facility] Address [address] [place] [address] Care Team Providers Care Manager Telemarketing Name Role Phone Kylie Reynolds MD Primary Care Provider Unavail le Encounter Details Date Type Department Care Team (Late st Contact Info) Description 10/23/2007 Outpatient Historical [facility] Family Medicine [place] [address] [place] [address] [place] [address] [facility] [address] [place] [address] Social History Tobacco Use Types Packs/Day Years Used Date Smoking Tobacco: Never Assessed Comments Unknown Sex and Gender Information Value Date Recorded Sex Assigned at Not on file Legal 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
--- OUTSIDE RECORDS SUMMARY | 2024-10-23 21:44 | XMS_ITS | Patient Health Summary ---
Author Organization [facility] Address [address] [place] [address] Care Team Providers Care Map Maker Name Role Phone Estuardo Crandall MD Primary Care Provider [phone] Note from [facility],non-owned Affiliates and Associated Physician Practices is amultiple site organization consisting of ambulatory clinics and hospital sitesin [place], [place], [place] and [place]. This disclosure is being madepursuant to the Care Everywhere program and may not contain all information available regarding this patient. Last updated 18.[facility] Medications * Be aware that medications may not be up to date on this document. Alwaysverify current medications with the patient. * lamoTRIgine (LAMICTAL) 200 MG tablet(Started 02/19/2017) Take 200 mg by mouth 2 times daily * FLUoxetine (PROZAC) 20 MG capsule(Started 02/19/2017) Take 30 mg by mouth once daily * lisinopril (PRINIVIL; ZESTRIL) 20 MG tablet(Started 02/19/2017) Take 20 mg by mouth once daily * atorvastatin (LIPITOR) 20 MG tablet(Started 02/19/2017) Take 20 mg by mouth at bedtime * methylphenidate (RITALIN) 20 MG tablet(Started 02/19/2017) Take 40 mg by mouth Every morning and lunchtime * ARIPiprazole (ABILIFY) 5 MG tablet(Started 02/19/2017) Take 5 mg by mouth once daily Social History Tobacco Use Types Packs/Day Years Used Date Smoking Tobacco: Never Assessed Sex and Gender Information Value Date Recorded Sex Assigned at Female 11/08/2021 12:17 PM STRESS TEST TECHNICIAN Gender Identity Female 11/08/2021 12:17 PM STRESS TEST TECHNICIAN Sexual Orientation Straight 11/08/2021 12 :17 PM STRESS TEST TECHNICIAN Last Filed Vital Signs Vital Sign Reading Time Taken Comments Blood Pressure 100/59 02/19/2017 7:56 PM CDT Pulse 62 02/19/2017 7:56 PM CDT Temperature 36.8 C (98.3 F) 02/19/2017 7:56 PM CDT Respiratory Rate 16 02/19/2017 7:56 PM CDT Oxygen Saturation 94% 02/19/2017 7:56 PM CDT Inhaled Oxygen Concentration - - Weight - - Height - - Body Mass Index - - Procedures * GROSS + MICRO EXAM(Performed 08/21/2003) Results * GROSS + MICRO EXAM (08/21/2003 12:00 AM STRESS TEST TECHNICIAN) Result CASE NUMBER [id number] Comment: ORDERING PHYSICIAN ERAN HU SPECIMEN TYPE Small bowel Surgeon Trace Gross Exam Dr. Ru Poole M.D. Gross Report THE SPECIMEN IS RECEIVED IN FIVE CONTAINERS. 1-SPECIMEN IS LABELED `SMALL BOWEL BIOPSY'. IT CONSISTS OF TWO FRAGMENTS OF LIGHT HONG SOFT TISSUE, THE LARGER MEASURES 2.5 MM IN GREATEST DIMENSION. THE SPECIMEN IS SUBMITTED IN ENTIRETY IN CASSETTE A. 2-SPECIMEN IS LABELED `GASTRIC NODULE BIOPSY'. IT CONSISTS OF TWO TINY FRAGMENTS OF LIGHT HONG SOFT TISSUE, THE LARGER MEASURES 1 MM IN GREATEST DIMENSION. THE SPECIMEN IS SUBMITTED IN ENTIRETY IN ONE CASSETTE B. 3-SPECIMEN IS LABELED `BIOPSY STOMACH'. IT CONSISTS OF TWO FRAGMENTS OF LIGHT HONG SOFT TISSUE, THE LARGEST MEASURES 2.5 MM IN GREATEST DIMENSION. THE SPECIMEN IS SUBMITTED IN ENTIRETY IN ONE CASSETTE C. 4-SPECIMEN IS LABELED `GASTRIC POLYP'. IT CONSISTS OF ONE FRAGMENT OF LIGHT HONG SOFT TISSUE MEASURING 3 MM IN GREATEST DIMENSION. THE SPECIMEN IS SUBMITTED IN ENTIRETY IN CASSETTE D. 5-SPECIMEN IS LABELED `DISTAL ESOPHAGUS'. IT CONSISTS OF TWO FRAGMENTS OF LIGHT HONG SOFT TISSUE, THE LARGER MEASURES 1.5 MM IN GREATEST DIMENSION. THE SPECIMEN IS SUBMITTED IN ENTIRETY IN ONE CASSETTE E. /[facility] [place] MICROSCOPIC EXAM MICROSCOPIC SECTION OF THE BIOPSY OF THE SMALL BOWEL SHOW FRAGMENTS OF SMALL BOWEL MUCOSA WHICH DISPLAYS UNREMARKABLE MORPHOLOGY. LENGTH OF THE VILLI ARE WITHIN NORMAL LIMITS. THERE IS NO DYSPLASIA OR MALIGNANCY IS IDENTIFIED. SECTION LABELED B FROM THE BIOPSY OF THE STOMACH SHOW FRAGMENTS OF GASTRIC MUCOSA. THE MUCOSA IS LINED BY ANTRAL EPITHELIUM. PITS TO GLANDS RATIO IS MINIMALLY DECREASED. WITHIN THE STROMA CHRONIC INFLAMMATORY CELLS ARE SEEN, HOWEVER, THOSE APPEAR TO BE NORMAL IN NUMBER AND DISTRIBUTION. DYSPLASIA OR MALIGNANCY IS NOT IDENTIFIED. HELICOBACTER ORGANISMS ARE NOT PRESENT. SECTION LABELED C, FROM THE SECOND BIOPSY OF THE STOMACH SHOW FRAGMENTS OF UNREMARKABLE GASTRIC MUCOSA SURFACED BY FOVEOLAR EPITHELIUM. PITS TO GLAND RATIO IS NORMAL. FOCUS OF INTESTINAL METAPLASIA IS NOTED. MALIGNANCY IS NOT SEEN. SECTION OF THE GASTRIC POLYP SHOW FRAGMENTS OF GASTRIC MUCOSA. THERE IS A COLLECTION OF CHRONIC INFLAMMATORY CELLS SEEN. INFLAMMATION IS COMPOSED OF LYMPHOCYTES WHICH FORM AGGREGATION. HELICOBACTOR ORGANISMS ARE NOT SEEN. DYSPLASIA OR MALIGNANCY IS NOT PRESENT. SECTION LABELED E FROM THE DISTAL ESOPHAGUS SHOW FRAGMENTS OF GASTRIC MUCOSA WHICH SHOW INCREASED NUMBER OF CHRONIC INFLAMMATORY CELLS WITHIN THE STROMA. FORMATION IS COMPOSED PREDOMINANTLY OF LYMPHOCYTES WITH SOME EOSINOPHILS AND PLASMA CELLS. FOCALLY, NEUTROPHILS ARE ALSO NOTED. DYSPLASIA OR MALIGNANCY IS NOT SEEN. HELICOBACTER ORGANISMS ARE NOT IDENTIFIED. /[facility] DIAGNOSIS DIAGNOSIS I. SMALL BOWEL, BIOPSY -- NO PATHOLOGIC DIAGNOSIS II. GASTRIC NODULE BIOPSY -- NO PATHOLOGIC DIAGNOSIS III. GASTRIC, BIOPSY -- NO PATHOLOGIC DIAGNOSIS IV. GASTRIC, POLYP, BIOPSY -- CHRONIC GASTRITIS, MILD V. DISTAL ESOPHAGUS -- GASTRIC MUCOSA WITH ACUTE AND CHRONIC INFLAMMATION, MILD TO MODERATE. -- NEGATIVE FOR DYSPLASIA OR MALIGNANCY -- HELICOBACTER ORGANISMS NOT PRESENT. /[facility] Released By DIANNA DUONG CPT Code 00060 X5 MISCELLANEOUS SAMPLE S / Unknown 08/21/2003 08/21/2003 12:37 PM STRESS TEST TECHNICIAN Historical Provider LAB - PATHOLOGY/C YTOLOGY ORDERABLES Care Teams Map Maker Relationship Specialty [place] [address] [phone] PCP - General 05/06/19
--- OUTSIDE RECORDS SUMMARY | 2024-10-23 21:44 | XMS_ITS | Encounter Summary ---
Author Organization [facility] Address [address] [place] [address] Care Team Providers Care Obgyn Hospitalist Physician Name Role Phone Kylie Reynolds MD Primary Care Provider Unavailab le Encounter Details Date Type Department Care Team (Late st Contact Info) Description 12/07/2006 Orders Only [facility] [place] [facility] [place] [address] [facility] [address] [place] [phone] Mack Ulrich MD [address] [place] [address] Social History Tobacco Use Types Packs/Day Years Used Date Smoking Tobacco: Never Assessed Comments Unknown Sex and Gender Information Value Date Recorded Sex Assigned at Not on file Legal 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 Right Radial, Regular TEMPERATURE: 97.6??f. Oral WEIGHT: [id number]. BLOOD PRESSURE: 113/69. Right Arm Sitting ALLERGIES: Allergies are as listed. CHIEF COMPLAINT Patient complains of sinus congestion, chest congestion, cough, chest discomfort. HISTORY: HISTORY OF PRESENT ILLNESS: UPPER RESPIRATORY: Onset is sudden. The upper respiratory symptoms began approximately 5 days ago. The patient has chest congestion, symptoms of sore throat. The symptoms have been intermittent. No therapies have been tried. ROS: GENERAL: No fever. RESPIRATORY: No wheezing. PHYSICAL EXAMINATION: CONSTITUTIONAL: GENERAL APPEARANCE: Healthy appearing patient in no distress. EARS, NOSE, MOUTH AND THROAT: EARS: Tympanic membranes shiny without retraction. Canals unremarkable. Hearing grossly normal. NOSE (AND SINUS): No abnormality of the nose or sinuses is noted. ORAL: Inspection of gums, lips, palate, and teeth normal. No scars, lesions, or masses. Oral mucosaunremarkable with non-inflamed posterior pharynx. RESPIRATORY: Clear to auscultation and percussion. Normal respiratory effort. CARDIOVASCULAR: CARDIAC: Regular rhythm. No murmurs, rubs, or gallops. LYMPHATICS: No lymphadenopathy in the neck, no supraclavicular lymphadenopathy noted. ASSESSMENT/PLAN: 465.9-UPPER RESPIRATORY INFECTION symptom care and precautions discussed. MEDICATIONS: AEROCHAMBER PLUS MISCELLANEOUS, Use with inhaler, 1 Dispensed, status: NEW PRESCRIPTION, 12/07/2006. ALBUTEROL SULFATE HFA INHALATION AEROSOL SOLUTION 108 MCG/ACT, 2 puffs q4-6 hours prn, 1 Dispensed,status: NEW PRESCRIPTION, 12/07/2006. Electronically Signed by: Mack Ulrich MD on November documented in this encounter Plan of Treatment Not on file documented as of this encounter Visit Diagnoses Not on filedocumented in this encounter Care Teams Obgyn Hospitalist Physician Relationship Specialty Start Date End Date Kylie Reynolds MD NO ADDRESS ON FILE PCP - General 01/23/01 02/25/16 documented as of this encounter
--- OUTSIDE RECORDS SUMMARY | 2024-10-23 21:44 | XMS_ITS | Encounter Summary ---
Author Organization [facility] Address [address] [place] [address] Care Team Providers Care Tender Coordinator Name Role Phone Kylie Reynolds MD Primary Care Provider Unavailab le Encounter Details Date Type Department Care Team (Late st Contact Info) Description 11/07/2007 Orders Only [facility] Medicine [place] [address] [place] [address] [address] [place] [address] Kylie Reynolds MD NO ADDRESS ON FILE Social History Tobacco Use Types Packs/Day Years Used Date Smoking Tobacco: Never Assessed Comments Unknown Sex and Gender Information Value Date Recorded Sex Assigned at Not on file Legal Sex Female 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
--- OUTSIDE RECORDS SUMMARY | 2024-10-23 21:44 | XMS_ITS | Data Portability ---
Author Organization [place] [facility] [employer], Main Office Address [address] [place] [address] Assessment No assessment recorded. Plan of Treatment Reminders Order Date Submit Date Provider Last Modified By Organization Details Last Modified Time Details Appointments None record ed. Lab None record ed. Referral None record ed. Procedures None record ed. Surgeries None record ed. Imaging None record ed. Medication Orders None record ed. Patient TargetsNo targets recorded. Patient InstructionsNo instructions recorded. Reason for Referral None Reported. Results Created Date Observation Date Name Description Value Unit Range Abnormal Flag Note LastModifiedBy Organization Detail LastModifiedTime 02/03/[address], maxil lofac ial, w/o contr ast [facility] [place] [id number] Patien t Name: RINA GONSALES Access ion #: [id number] Sex: F : 1949 9 6 Locati on: RA2 Attend ing Physic wilbert: ROOSEVELT ARELLANO Orderi Physic wilbert: ROOSEVELT ARELLANO Exam Date: 023 8:03 AM Exam Name: CT MAXILL OFACIA L WO Admitt ing Diagno sis(es ): RADIOL OGY REPORT - FINAL EXAM: CT MAXILL OFACIA L WO HISTOR Y: Chroni c sinusi tis COMPAR BRITTANY: None. TECHNI QUE: Noncon trast axial CT images of the facial bones were perfor med. Tyler l and sagitt al reform atted images were obtain ed. This CT exam was perfor med using one or more of the follow ing dose reduct ion techni ques: Automa clover exposu re contro l, adjust ment of the mA and/or kV accord ing to patien t size, or use of iterat kari recons tructi on techni que. FINDIN GS: Osseou s: Unrema rkable Page 1 of 2 [facility] [place] Amalia t Name: RINA GONSALES Access ion #: [id number] Sex: F : 1949 9 6 Exam Date: 8:03 AM Exam Name: CT MAXILL OFACIA L WO Admitt ing Diagno sis(es ): Soft tissue s: Unrema rkable Sinuse s: Aerate d as visual ized demons tratin g small fluid level within depend ent portio n left maxill alberto sinus. Nasal septum : Midlin e Orbits : Unrema rkable Nasal turbin ates: Unrema rkable Tempor al mastoi d air cells: Aerate d IMPRES AUTUMN: 1. Very mild inflam matory residu als, left maxill alberto sinus. Create d and electr onical ly signed by: Ronnie mcpherson MD Signed Date: 3:14 PM (CT) Dictat ed by: Ronnie mcpherson MD DD: 3:14 PM (CT) DT: 3:14 PM (CT) Page 2 of [address] (Imaging) [address] [place], [address], 02/02/2023 17:25:17 02/03/[address], sinus es, w/o contr ast No observ ation record ed. [address] [place], [address], 02/03/2023 08:37:26 02/09/[address], sinus es, w/o contr ast No observ ation record ed. [email or web address] [place], [address], 02/08/2023 17:02:21 Result Notes None recorded. Problems Name Problem SNOMED Code Status Onset Date Resolution Date Notes Provider Name and Address Organization Details Recorded Time Chronic sinusitis 93649554 Active Janis Gan RN null, [place] [facility] 10:50:02 Chronic sinusitis 29039710 Active 023 Roosevelt Melvin MD [address] [facility], [facility] [address], [place], [address] , [facility] 10:51:01 Problem Notes None recorded. Procedures Surgical History Date Name Laterality Status Provider Name and Address Organization Details Recorded Time Eye Surgery completed Anna Kaur CMA [place] [facility] 01/25/2023 10:08:42 repair of nose completed Anna Kaur CMA [place] [facility] 01/25/2023 10:08:50 Imaging Results Imaging Date Name Status LastModified by Organiz ation Details LastModified Time 02/02/2023 CT, maxillofacial , w/o contrast completed [email or web address] (Imaging) [address] [place], [address], 02/02/2023 17:25:17 02/02/2023 CT, sinuses, w/o contrast completed [email or web address] [facility] [address] , [place], [address], 02/03/2023 08:37:26 02/08/2023 CT, sinuses, w/o contrast completed [facility] [address] [place] [address] , [place], [address], 02/08/2023 17:02:21 Procedure Notes None recorded. Medical Equipment None Reported. Allergies Allergen ID Allergen Name Allergen Category Reaction Reaction Severity Criticality Documentation Date Start Date Code Code System Note Provider Name and Address Organization Details Recorded Time 30682 ceftriaxo ne medicatio n Not available Not available Not available 01/26/20232192 RxNorm KEL Sellers, [place] [facility] 10:40:57 17212 cyclobenz aprine medicatio n Not available Not available Not available 01/26/2023 99997 RxNorm KEL Sellers, [place] [facility] 10:41:18 Medications Name Sig Start Date Stop Date Status Note LastModified by Organization Details LastModified Time cyclobenzap rine 10 mg tablet 01/26 completed Not Available Not Available Not Available trazodone 50 mg tablet TAKE 1 TABLET BY MOUTH ONCE DAILY AT BEDTIME NEEDED active Not Available Not Available No t Available lecithin 1,200 mg capsule Take by oral route. active Not Available Not Available No t Available dextroamphe tamine-amph etamine 10 mg tablet TAKE 3 TABLETS BY MOUTH TWICE DAILY 01/26 completed Not Available Not Available Not Available hydrocodone 10 mg-acetamin ophen 325 mg tablet TAKE 1 TABLET BY MOUTH FOUR TIMES DAILY NEEDED FOR PAIN active Not Available Not Available No t Available pantoprazol e 20 mg tablet,mindi yed release Take 2 tablets every day by oral route. active Not Available Not Available No t Available dextroamphe tamine-amph etamine 30 mg tablet TAKE 1 TABLET BY MOUTH TWICE DAILY 01/26 completed Not Available Not Available Not Available modafinil 200 mg tablet TAKE 1 TABLET BY MOUTH ONCE DAILY active Not Available Not Available No t Available metronidazo le 0.75 % topical cream APPLY DAILY TO FACE FOR ROSACEA active Not Available Not Available No t Available dextroamphe tamine-amph etamine 15 mg tablet 01/26 completed Not Available Not Available Not Available methylpredn isolone 4 mg tablets in a dose pack FOLLOW PACKAGE DIRECTION S 01/26 completed Not Available Not Available Not Available lisinopril 40 mg tablet TAKE 1 TABLET BY MOUTH ONCE DAILY active Not Available Not Available No t Available oxycodone 5 mg tablet TAKE 1 TABLET BY MOUTH EVERY 4 HOURS NEEDED FOR PAIN active Not Available Not Available No t Available modafinil 100 mg tablet TAKE 1 TABLET BY MOUTH TWICE DAILY 01/26 completed Not Available Not Available Not Available cyclobenzap rine 5 mg tablet TAKE 1 TABLET BY MOUTH THREE TIMES DAILY 01/26 completed Not Available Not Available Not Available aripiprazol e 5 mg tablet TAKE 1 TABLET BY MOUTH ONCE DAILY active Not Available Not Available No t Available vitamin E active Not Available Not Katerine ilable Not Available Glucosamine 1500 Complex active Not Available Not Available Not Available naloxone 4 mg/actuatio n nasal spray ADMINISTE R A SINGLE SPRAY IN ONE NOSTRIL UPON SIGNS OF OPIOID OVERDOSE. CALL 911. REPEAT AFTER 3 MINUTES IF NO RESPONSE. active Not Available Not Available No t Available Vitals Date Recorded Body weight Body mass index (BMI) Body height Body temperature Provider Name and Address Organization Details Last Updated DateTime 01/26/2023 97189 g 27.8 kg/m2 160.02 cm 97.6 [degF] Anna Kaur CMA [facility] [employer] [facility] 01/26/2023 10:40:26 Social History Question Answer Notes LastModified by Organizat ion Details LastModified Time Tobacco Smoking Status Never Smoker Anna Kaur CMA null, [facility] [employer] [facility] 01/25/2023 10:08:22 What Is Your Level Of Alcohol Consumption? None [email or web address] Information not available 01/25/2023 Sex: Unknown Functional Status None recorded. Mental Status None recorded. Family History Nothing Reported. Medical History Condition Response MRSA N BACK INJECTIONS N ALLERGIES/HAYFEVER N LUNG DISEASE/DISORDER N INSOMNIA N HISTORY OF DRUG ABUSE N ESRD N RADIATION / CHEMOTHERAPY N COPD N HIGH CHOLESTEROL / HYPERLIPIDEMIA Y HYPERTHYROIDISM N PVD N BLOOD DISEASES N EAR OR HEARING PROBLEMS N HYPOTHYROIDISM N SHINGLES N DEPRESSION (INCLUDING POST ) Y BACK / NECK PROBLEMS N HAVE YOU BEEN HOSPITALIZED OR SEEN IN [facility] ER IN THE PAST YEAR ? N FAILED BACK SYNDROME N STROKE/TIA N POLYCYSTIC OVARIES N OBESITY N HISTORY WITH COMPLICATIONS WITH ANESTHES IA ? N ANEURYSM N Do you have Advance directive? N USE OF BLOOD THINNERS N NO SIGNIFICANT PAST MEDICAL HISTORY N DIABETES, TYPE N VON WILLIBRAND'S DISEASE N PARATHYROID DISEASE N ENT N SEASONAL ALLERGIES N HEARTBURN / REFLUX N POST LAMINECTOMY SYNDROME N HEPATITIS / LIVER DISEASE N SLEEP DISORDER N ARTERIAL INSUFFICIENCY N SEIZURES/EPILEPSY N HEADACHES/MIGRAINES N CHF N PACEMAKER N DIZZINESS N HEART DISEASE/HEART PROBLEMS N AIDS/HIV N NEUROPSYCHOLOGICAL N HYPERTENSION Y CANCER: SPECIFY N TOURETTE'S N BLOOD TRANSFUSION N ANESTHESIA COMPLICATIONS N ANEMIA/BLOOD DISORDER N CHRONIC EAR INFECTIONS N ATRIAL FIBRILLATION N AUTOIMMUNE DISEASE N TUBERCULOSIS N Gynecological HistoryNo gynecological history recorded. Obstetrics History GPAL:G 0 P 0 0 0 0 Past Encounters Encounter ID Performer Location Encounter Start Date Encounter Closed Date Diagnosis/Indication Diagnosis SNOMED-CT Code Diagnosis ICD10 Code Diagnosis Note [id number] Roosevelt Melvin MD [facility] [address] [place] [address] 01/26/2023 10:22:22 01/26/2023 11:22:20 Chronic sinusitis 07296436 J32.9 Health Concerns Section Related Observation LastModified by Organization Detai ls LastModified Time None Recorded Concern Status LastModified by Organization Details LastModified Time None Recorded Advance Directives Directive None Recorded Payers Encounter Date Sequence Insurance Name Policy Number Policy Elias Covered Member ID Elias Member ID Guarantor Name 01/26/2023 1 [facility] (MEDICARE REPLACEMENT/A DVANTAGE - PPO) [id number] Rina Gonsales [id number] Rina Gonsales Notes Date Note Type Note Provider Name and Address Organization Details Recorded Time 01/26/2023 text/html this patient has a history of 3 rhinoplasty use and complains of nasal obstruction. She uses nasal CPAP. Roosevelt Melvin MD [address] [place] [address], [place], [address], [place] [facility] 01/26/2023 10:51:26 OBGyn Episode No OBEpisode recorded.
--- OUTSIDE RECORDS SUMMARY | 2024-10-23 21:44 | XMS_ITS | Encounter Summary ---
Author Organization [employer] Address [address] [place] [address] Care Team Providers Care Switchboard Troubleshooter Name Role Phone Kylie Reynolds MD Primary Care Provider Unavailab le Encounter Details Date Type Department Care Team (Late st Contact Info) Description 07/13/2006 Outpatient Historical [facility] [place] [address] [place] [address] [place] [address] [place] [address] Social History Tobacco Use Types Packs/Day Years Used Date Smoking Tobacco: Never Assessed Comments Unknown Sex and Gender Information Value Date Recorded Sex Assigned at Not on file Legal 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
--- OUTSIDE RECORDS SUMMARY | 2024-10-23 21:44 | XMS_ITS | Encounter Summary ---
Author Organization [employer] Address [address] [place] [address] Care Team Providers Care Scalemaker Name Role Phone Kylie Reynolds MD Primary Care Provider Unavailab le Encounter Details Date Type Department Care Team (Late st Contact Info) Description 01/22/2007 Outpatient [facility] [address] [place] [address] 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
--- OUTSIDE RECORDS SUMMARY | 2024-10-23 21:44 | XMS_ITS | Encounter Summary ---
Author Organization [facility] Address [address] [place] [address] Care Team Providers Care Roof Fixer Name Role Phone Kylie Reynolds MD Primary Care Provider Unavailab le Encounter Details Date Type Department Care Team (Late st Contact Info) Description 06/19/2006 Orders Only [facility] [place] [address] 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 BLOOD PRESSURE: 112/72. Right Arm Sitting PULSE: 71. Right Radial, Regular TEMPERATURE: 97.1??f. Oral ALLERGIES: Allergies are as listed. CHIEF COMPLAINT Patient complains of. joint pain and earwax build-up(L) ear. HISTORY: HISTORY: 380.4-CERUMEN IMPACTION noted to have wax in the past - would like them lavaged HISTORY OF PRESENT ILLNESS: PAIN: Pain noted in hand. worse upon waking. minimal swelling noted. difficulty getting ring back on in morning. recently had dx of vomitting related to stress. concerned it might be arthritis. PHYSICAL EXAMINATION: CONSTITUTIONAL: GENERAL APPEARANCE: Healthy appearing patient in no distress. EARS, NOSE, MOUTH AND THROAT: EARS: CERUMEN INCREASED IN THE EARS BILATERALLY. MUSCULOSKELETAL EXAM: EXTREMITIES: PE/MS/BILAT UPPER EXT No hand swelling, full range of motion in the hands. OFFICE PROCEDURES: EAR LAVAGE/CERUMEN REMOVAL 12034:Ear lavage performed on patient. The patient's cerumen impaction has improved. ASSESSMENT/PLAN: 380.4-CERUMEN IMPACTION LAB ORDERS: Order number: [id number] Test Ordered: CERUMEN IMPACTION REMOVAL 02453 729.5-PAIN LIMB (LEG OR ARM) anxiety. try xanax at bedtime. address with psychiatrist MEDICATIONS: XANAX ORAL TABLET 0.5 MG, 1 Every Day At Bedtime, As Needed, stephy # [id number], 30 Dispensed, status:NEW PRESCRIPTION, 06/19/2006. Electronically Signed by: Kylie Reynolds MD on Tuesday, June 20, 2006 documented in this encounter Plan of Treatment Not on file documented as of this encounter Visit Diagnoses Not on filedocumented in this encounter Care Teams Roof Fixer Relationship Specialty Start Date End Date Kylie Reynolds MD NO ADDRESS ON FILE PCP - General 01/23/01 02/25/16 documented as of this encounter
--- OUTSIDE RECORDS SUMMARY | 2024-10-23 21:44 | XMS_ITS | Encounter Summary ---
Author Organization [employer] Address [address] [place] [address] Care Team Providers Care Director Of Contracts Name Role Phone Kylie Reynolds MD Primary Care Provider Unavailab le Encounter Details Date Type Department Care Team (Late st Contact Info) Description 12/10/2007 Outpatient [facility] [address] [place] [address] 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
--- OUTSIDE RECORDS SUMMARY | 2024-10-23 21:44 | XMS_ITS | Encounter Summary ---
Author Organization [facility] Address 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 Gender Identity Not on file Sexual Orientation Not on file documented as of this encounter Plan of Treatment Not on file documented as of this encounter Procedures Procedure Name Priority Date/Time Associated Diagnosis Comments CBC WITH DIFFERENTIAL Routine 07/22/2008 4:49 PM COSTUMED CHARACTER ENTERTAINER documented in this encounter Results * CBC WITH DIFFERENTIAL (07/22/2008 4:49 PM COSTUMED CHARACTER ENTERTAINER) WBC 6.6 4.0 - 9.8 K/uL [facility] MCH 30.7 27.2 - 32.6 pg [facility] MPV 10.9 9.3 - 12.4 fL [facility] HEMATOCRIT 39.0 35.5 - 44.0 % [facility] RDW-STDEV 43.2 37.1 - 48.7 fL [facility] RBC 4.23 3.90 - 4.90 M/uL [facility] MCHC 33.3 31.5 - 35.5 % [facility] MCV 92.2 82.0 - 99.0 fL [facility] PLATELETS 229 140 - 350 K/uL [facility] HEMOGLOBIN 13.0 11.8 - 14.8 g/dL [facility] RDW 12.8 11.5 - 14.5 % [facility] BASOPHILS 0 0 - 2 % [facility] BASOPHILS ABSOLUTE 0.02 0.00 - 0.20 K/uL [facility] MONOCYTES 10 3 - 13 % [facility] MONOCYTE ABSOLUTE 0.62 0.10 - 1.30 K/uL [facility] NEUTROPHILS 60 45 - 70 % [facility] NEUTROPHIL ABSOLUTE 3.96 1.90 - 7.00 K/uL [facility] EOSINOPHILS 1 0 - 7 % [facility] EOSINOPHIL ABSOLUTE 0.05 0.00 - 0.70 K/uL [facility] LYMPHOCYTES 29 16 - 45 % [facility] LYMPHOCYTE ABSOLUTE 1.91 0.70 - 4.50 K/uL [facility] Blood specimen (specimen) 07/22/2008 4:49 PM COSTUMED CHARACTER ENTERTAINER 07/22/2008 4:58 PM COSTUMED CHARACTER ENTERTAINER us Bib Solis MD HEMATOLOGY ORDERABLES Edited INTERFACE SYSTEM Refer to clinic/hospital department [facility] CLIA# [id number] [address] [place] [address] documented in this encounter Visit Diagnoses Not on filedocumented in this encounter Care Teams Furniture Removalist'S Assistant Relationship Specialty Start Date End Date Kylie Reynolds MD NO ADDRESS ON FILE PCP - General 01/23/01 02/25/16 documented as of this encounter
--- OUTSIDE RECORDS SUMMARY | 2024-10-23 21:44 | XMS_ITS | Encounter Summary ---
Author Organization [facility] Address 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) Social History Tobacco Use Types Packs/Day Years Used Date Smoking Tobacco: Never Assessed Comments Unknown Sex and Gender Information Value Date Recorded Sex Assigned at Not on file 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 Gender Identity Not on file Sexual Orientation Not on file documented as of this encounter Plan of Treatment Not on file documented as of this encounter Procedures Procedure Name Priority Date/Time Associated Diagnosis Comments CBC WITH DIFFERENTIAL Routine 07/07/2006 12:54 PM CDT CBC WITH DIFFERENTIAL Routine 07/07/2006 12:54 PM CDT SEDIMENTATION RATE Routine 07/07/2006 12 :54 PM CDT RHEUMATOID FACTOR Routine 07/07/2006 12: 54 PM CDT TABITHA SCREEN W/REFLEX Routine 07/07/2006 1 2:54 PM CDT TSH Routine 07/07/2006 12:54 PM CDT COMPREHENSIVE METABOLIC PANEL Routine 07/07/2006 12:54 PM CDT documented in this encounter Results * (ABNORMAL) CBC WITH DIFFERENTIAL (07/07/2006 12:54 PM CDT) NEUTROPHILS 36(L) 45 - 70 % INTERFAC E SYSTEM LYMPHOCYTES 48(H) 16 - 45 % INTERFAC E SYSTEM MONOCYTES 12 3 - 13 % INTERFACE SYSTEM EOSINOPHILS 4 0 - 7 % INTERFAC E SYSTEM BASOPHILS 0 0 - 2 % INTERFACE SYSTEM NEUTROPHIL ABSOLUTE 1.77(L) 1.90 - 7.00 K/uL INTERFACE SYSTEM LYMPHOCYTE ABSOLUTE 2.37 0.70 - 4.50 K/uL INTERFACE SYSTEM MONOCYTE ABSOLUTE 0.58 0.10 - 1.30 K/uL INTERFACE SYSTEM EOSINOPHIL ABSOLUTE 0.18 0.00 - 0.70 K/uL INTERFACE SYSTEM BASOPHILS ABSOLUTE 0.02 0.00 - 0.20 K/uL INTERFACE SYSTEM 07/07/2006 12:5 4 PM CDT us Wiliam Arroyo MD HEMATOLOGY ORDERABLES Final Resu lt INTERFACE SYSTEM Refer to clinic/hospital department * CBC WITH DIFFERENTIAL (07/07/2006 12:54 PM CDT) WBC 4.9 4.0 - 9.8 K/uL INTERFACE SYSTEM RBC 4.35 3.90 - 4.90 M/uL INTERFACE SYSTEM HEMOGLOBIN 13.8 11.8 - 14.8 g/dL INTERFACE SYSTEM HEMATOCRIT 40.3 35.5 - 44.0 % INTERFACE SYSTEM MCV 92.6 82.0 - 99.0 fL INTERFACE SYSTEM MCH 31.7 27.2 - 32.6 pg INTERFACE SYSTEM MCHC 34.2 31.5 - 35.5 % INTERFACE SYSTEM RDW 12.3 11.5 - 14.5 % INTERFACE SYSTEM RDW-STDEV 41.8 37.1 - 48.7 fL INTERFACE SYSTEM PLATELETS 268 140 - 350 K/uL INTERFACE SYSTEM MPV 10.4 9.3 - 12.4 fL INTERFACE SYSTEM 07/07/2006 12:5 4 PM CDT us Wiliam Arroyo MD HEMATOLOGY ORDERABLES Final Resu lt Performing Organization Address City/[facility] Co de Phone Number INTERFACE SYSTEM Refer to clinic/hospital department * COMPREHENSIVE METABOLIC PANEL (07/07/2006 12:54 PM CDT) GLUCOSE 79 65 - 99 mg/dL INTERFACE SYSTEM CREATININE 0.8 0.4 - 1.2 mg/dL INTERFACE SYSTEM CALCIUM 8.9 8.4 - 10.2 mg/dL INTERFACE SYSTEM ALKALINE PHOSPHATASE 62 35 - 104 U/L INTERFACE SYSTEM AST 30 12 - 32 U/L INTERFACE SYSTEM ALT 24 0 - 31 U/L INTERFACE SYSTEM TOTAL PROTEIN 7.0 6.3 - 8.6 g/dL INTERFACE SYSTEM ALBUMIN 4.5 3.4 - 4.8 g/dL INTERFACE SYSTEM BILIRUBIN TOTAL 0.2 0.2 - 1.0 mg/dL INTERFACE SYSTEM BUN 18 6 - 20 mg/dL INTERFACE SYSTEM SODIUM 138 135 - 145 mmol/L INTERFACE SYSTEM POTASSIUM 4.1 3.5 - 4.9 mmol/L INTERFACE SYSTEM CHLORIDE 102 96 - 108 mmol/L INTERFACE SYSTEM CO2 26 22 - 30 mmol/L INTERFACE SYSTEM 07/07/2006 12:5 4 PM CDT us Wiliam Arroyo MD CHEMISTRY ORDERABLES Final Resul t Performing Organization Address [facility] Phone Number INTERFACE SYSTEM Refer to clinic/hospital department * TSH (07/07/2006 12:54 PM CDT) TSH 0.94 0.27 - 4.20 uU/mL INTERFACE SYSTEM 07/07/2006 12:5 4 PM CDT us Wiliam Arroyo MD CHEMISTRY ORDERABLES Final Resul t Performing Organization Address City/[facility]/ZIP Co de Phone Number INTERFACE SYSTEM Refer to clinic/hospital department * SEDIMENTATION RATE (07/07/2006 12:54 PM CDT) ESR (SEDIMENTATION RATE) 7 0 - 30 mm/hr INTERFACE SYSTEM 07/07/2006 12:5 4 PM CDT us Wiliam Arroyo MD HEMATOLOGY ORDERABLES Final Resu lt Performing Organization Address [facility] Co de Phone Number INTERFACE SYSTEM Refer to clinic/hospital department * TABITHA (07/07/2006 12:54 PM CDT) TABITHA SCREEN NEGATIVE NEGATIVE INTERFACE SYSTEM Comment: [facility]: [facility] [address] [place] [address] MANSOOR NIEVES MD 07/07/2006 12:5 4 PM CDT us Wiliam Arroyo MD CHEMISTRY ORDERABLES Final Resul t Performing Organization Address [facility] Co de Phone Number INTERFACE SYSTEM Refer to clinic/hospital department * RHEUMATOID FACTOR (07/07/2006 12:54 PM CDT) RHEUMATOID FACTOR 11 IU/mL INTERFACE SYSTEM Comment:Reference Range: Les s than 14 IU/mL 07/07/2006 12:5 4 PM CDT us Wiliam Arroyo MD CHEMISTRY ORDERABLES Final Resul t Performing Organization Address [facility] de Phone Number INTERFACE SYSTEM Refer to clinic/hospital department documented in this encounter Visit Diagnoses Diagnosis Lumbosacral spondylosis without myelopathy- Primary documented in this encounter Care Teams Furniture Finisher Helper Relationship Specialty Start Date End Date Kylie Reynolds MD NO ADDRESS ON FILE PCP - General 01/23/01 02/25/16 documented as of this encounter
--- OUTSIDE RECORDS SUMMARY | 2024-10-23 21:44 | XMS_ITS | Encounter Summary ---
Author Organization [employer] Address [address] [place] [address] Care Team Providers Care Rn Integrated Name Role Phone Kylie Reynolds MD Primary Care Provider Unavailab le Encounter Details Date Type Department Care Team (Late st Contact Info) Description 11/22/2006 Outpatient Historical [facility] [address] [place] [address] [place] [address] Dov Joe MD Social History Tobacco Use Types Packs/Day Years Used Date Smoking Tobacco: Never Assessed Comments Unknown Sex and Gender Information Value Date Recorded Sex Assigned at Not on file Legal Sex Female 5:26 AM MANAGER OFFICE SERVICES Gender Identity Not on file Sexual Orientation Not on file documented as of this encounter Plan of Treatment Not on file documented as of this encounter Visit Diagnoses Not on filedocumented in this encounter Care Teams Rn Integrated Relationship Specialty Start Date End Date Kylie Reynolds MD NO ADDRESS ON FILE PCP - General 01/23/01 02/25/16 documented as of this encounter
--- OUTSIDE RECORDS SUMMARY | 2024-10-23 21:44 | XMS_ITS | Encounter Summary ---
Author Organization [employer] Address [address] [place] [address] Care Team Providers Care Log Rider Name Role Phone Kylie Reynolds MD Primary Care Provider Unavail le Encounter Details Date Type Department Care Team (Latest Contact Info) Description 07/13/2006 Outpatient Historical [facility] [place] [id number] [phone] Disturbance of Skin Sensation (Primary Dx) Social History Tobacco Use Types Packs/Day Years Used Date Smoking Tobacco: Never Assessed Comments Unknown Sex and Gender Information Value Date Recorded Sex Assigned at Not on file Legal Sex Female 5:26 AM BODY AND FRAME TECHNICIAN Gender Identity Not on file Sexual Orientation Not on file documented as of this encounter Plan of Treatment Not on file documented as of this encounter Visit Diagnoses Diagnosis Disturbance of skin sensation- Primary documented in this encounter Care Teams Log Rider Relationship Specialty Start Date End Date Kylie Reynolds MD NO ADDRESS ON FILE PCP - General 01/23/01 02/25/16 documented as of this encounter
--- OUTSIDE RECORDS SUMMARY | 2024-10-23 21:44 | XMS_ITS | Encounter Summary ---
Author Organization [facility] Address [address] [place] [address] Care Team Providers Care Junior Software Engineer Name Role Phone Kylie Reynolds MD Primary Care Provider Unavailab le Encounter Details Date Type Department Care Team (Late st Contact Info) Description 10/19/2006 Orders Only [facility] [place] [address] [place] [address] [address] [place] [address] Kylie Reynolds MD NO ADDRESS ON FILE Social History Tobacco Use Types Packs/Day Years Used Date Smoking Tobacco: Never Assessed Comments Unknown Sex and Gender Information Value Date Recorded Sex Assigned at Not on file Legal Sex Female 5:26 AM CIVILIAN JAIL OFFICER Gender Identity Not on file Sexual Orientation Not on file documented as of this encounter Plan of Treatment Not on file documented as of this encounter Visit Diagnoses Not on filedocumented in this encounter Care Teams Junior Software Engineer Relationship Specialty Start Date End Date Kylie Reynolds MD NO ADDRESS ON FILE PCP - General 01/23/01 02/25/16 documented as of this encounter
--- OUTSIDE RECORDS SUMMARY | 2024-10-23 21:44 | XMS_ITS | Encounter Summary ---
Author Organization [facility] Address [address] [place] [address] Care Team Providers Care Furniture Inspector Name Role Phone Kylie Reynolds MD Primary Care Provider Unavailab le Encounter Details Date Type Department Care Team (Late st Contact Info) Description 09/25/2006 Orders Only [facility] Medicine [place] [address] [place] [address] [address] [place] [phone] Mack Ulrich MD [address] [place] [address] Social History Tobacco Use Types Packs/Day Years Used Date Smoking Tobacco: Never Assessed Comments Unknown Sex and Gender Information Value Date Recorded Sex Assigned at Not on file Legal Sex Female 5:26 AM DIRECTOR OF COMPLIANCE Gender Identity Not on file Sexual Orientation Not on file documented as of this encounter Plan of Treatment Not on file documented as of this encounter Visit Diagnoses Not on filedocumented in this encounter Care Teams Furniture Inspector Relationship Specialty Start Date End Date Kylie Reynolds MD NO ADDRESS ON FILE PCP - General 01/23/01 02/25/16 documented as of this encounter
--- OUTSIDE RECORDS SUMMARY | 2024-10-23 21:44 | XMS_ITS | Encounter Summary ---
Author Organization [employer] Address [address] [place] [address] Care Team Providers Care Barrel Bander Name Role Phone Kylie Reynolds MD Primary Care Provider Unavailab le Encounter Details Date Type Department Care Team (Late st Contact Info) Description 12/03/2006 Outpatient [facility] [address] [place] [address] [place] [address] Fely Dalton MD Social History Tobacco Use Types Packs/Day Years Used Date Smoking Tobacco: Never Assessed Comments Unknown Sex and Gender Information Value Date Recorded Sex Assigned at Not on file Legal Sex Female 5:26 AM MEMS INTEGRATION ENGINEER Gender Identity Not on file Sexual Orientation Not on file documented as of this encounter Plan of Treatment Not on file documented as of this encounter Visit Diagnoses Not on filedocumented in this encounter Care Teams Barrel Bander Relationship Specialty Start Date End Date Kylie Reynolds MD NO ADDRESS ON FILE PCP - General 01/23/01 02/25/16 documented as of this encounter
--- OUTSIDE RECORDS SUMMARY | 2024-10-23 21:44 | XMS_ITS | Encounter Summary ---
Author Organization [facility] Address [address] [place] [address] Care Team Providers Care Orthopedics Nurse Name Role Phone Kylie Reynolds MD Primary Care Provider Unavail le Encounter Details Date Type Department Care Team (Late st Contact Info) Description 10/23/2007 Outpatient Historical [facility] [place] [address] [place] [phone] [place] [address] [facility] [address] [place] [address] Social History Tobacco Use Types Packs/Day Years Used Date Smoking Tobacco: Never Assessed Comments Unknown Sex and Gender Information Value Date Recorded Sex Assigned at Not on file Legal Sex Female 5:26 AM GRANITE CUTTER APPRENTICE Gender Identity Not on file Sexual Orientation Not on file documented as of this encounter Plan of Treatment Not on file documented as of this encounter Visit Diagnoses Not on filedocumented in this encounter Care Teams Orthopedics Nurse Relationship Specialty Start Date End Date Kylie Reynolds MD NO ADDRESS ON FILE PCP - General 01/23/01 02/25/16 documented as of this encounter
--- OUTSIDE RECORDS SUMMARY | 2024-10-23 21:44 | XMS_ITS | Encounter Summary ---
Author Organization [employer] Address [address] [place] [address] Care Team Providers Care Land Department Head Name Role Phone Kylie Reynolds MD Primary Care Provider Unavailab le Encounter Details Date Type Department Care Team (Late st Contact Info) Description 12/21/2007 Outpatient Historical [facility] Bib Serna MD [address] [place] [address] Social History Tobacco Use Types Packs/Day Years Used Date Smoking Tobacco: Never Assessed Comments Unknown Sex and Gender Information Value Date Recorded Sex Assigned at Not on file Legal Sex Female 5:26 AM PASSENGER CONDUCTOR Gender Identity Not on file Sexual Orientation Not on file documented as of this encounter Plan of Treatment Not on file documented as of this encounter Visit Diagnoses Not on filedocumented in this encounter Care Teams Land Department Head Relationship Specialty Start Date End Date Kylie Reynolds MD NO ADDRESS ON FILE PCP - General 01/23/01 02/25/16 documented as of this encounter
--- OUTSIDE RECORDS SUMMARY | 2024-10-23 21:44 | XMS_ITS | Encounter Summary ---
Author Organization [facility] Address [address] [place] [address] Care Team Providers Care Food Order Delivery Runner Name Role Phone Kylie Reynolds MD Primary Care Provider Unavail le Encounter Details Date Type Department Care Team (Late st Contact Info) Description 11/15/2006 Outpatient Historical [facility] AUTO BODY SERVICE MECHANIC - Medical [address] [address] Yosvany Coppola MD [address] [place] [phone] Social History Tobacco Use Types Packs/Day Years Used Date Smoking Tobacco: Never Assessed Comments Unknown Sex and Gender Information Value Date Recorded Sex Assigned at Not on file Legal Sex Female 5:26 AM MUSEUM EDUCATOR Gender Identity Not on file Sexual Orientation Not on file documented as of this encounter Plan of Treatment Not on file documented as of this encounter Visit Diagnoses Not on filedocumented in this encounter Care Teams Food Order Delivery Runner Relationship Specialty Start Date End Date Kylie Reynolds MD NO ADDRESS ON FILE PCP - General 01/23/01 02/25/16 documented as of this encounter
--- OUTSIDE RECORDS SUMMARY | 2024-10-23 21:44 | XMS_ITS | Encounter Summary ---
Author Organization [facility] Address [address] [place] [address] Care Team Providers Care Foamite Mixer Name Role Phone Kylie Reynolds MD Primary Care Provider Brennan hagan Encounter Details Date Type Department Care Team (Latest Contact Info) Description 10/25/2007 Outpatient Historical [place] [facility] Family Medicine [place] [address] [place] [address] [address] [place] [address] Kylie Reynolds MD NO ADDRESS ON FILE Other and Unspecified Hyperlipidemia Social History Tobacco Use Types Packs/Day Years Used Date Smoking Tobacco: Never Assessed Comments Unknown Sex and Gender Information Value Date Recorded Sex Assigned at Not on file Legal Sex Female 5:26 AM OUT PATIENT THERAPIST Gender Identity Not on file Sexual Orientation Not on file documented as of this encounter Plan of Treatment Not on file documented as of this encounter Procedures Procedure Name Priority Date/Time Associated Diagnosis Comments URINALYSIS W/REFLEX MICROSCOPIC Routine 10/25/2007 11:04 AM OUT PATIENT THERAPIST LIPID PANEL Routine 10/25/2007 11:04 AM OUT PATIENT THERAPIST COMPREHENSIVE METABOLIC PANEL Routine 10/25/2007 11:04 AM OUT PATIENT THERAPIST documented in this encounter Results * (ABNORMAL) URINALYSIS (10/25/2007 11:04 AM OUT PATIENT THERAPIST) COLOR UA Yellow INTERFACE SYSTEM CLARITY UA Clear Clear INTERFACE SYSTEM SPECIFIC GRAVITY UA 1.026 1.001 - 1.035 INTERFACE SYSTEM PH UA 6.0 5.0 - 8.0 INTERFACE SYSTEM LEUKOCYTE ESTERASE UA 1+(A) Negative INTERFACE SYSTEM NITRITE UA Negative Negative INTERFACE SYSTEM PROTEIN UA 1+(A) Negative INTERFACE SYSTEM GLUCOSE UA Negative Negative INTERFACE SYSTEM KETONES UA Negative Negative INTERFACE SYSTEM UROBILINOGEN UA <1 <=1 mg/dL INTE RFACE SYSTEM BILIRUBIN UA Negative Negative INTERFA CE SYSTEM BLOOD UA Trace(A) Negative INTERFACE SYSTEM WBC UA 8(H) 0 - 5 /HPF INTERFACE SYSTEM RBC UA 6(H) 0 - 4 /HPF INTERFACE SYSTEM BACTERIA UA 1+(A) None Seen /HPF INTERFACE SYSTEM EPITHELIAL CELLS, URINE 2-5 /HPF INTERFACE SYSTEM HYALINE CAST 3(H) 0 - 2 /LPF INTERF MARILOU SYSTEM 10/25/2007 11:0 4 AM OUT PATIENT THERAPIST us Kylie Reynolds MD URINE ORDERABLES Final Result INTERFACE SYSTEM Refer to clinic/hospital department * (ABNORMAL) COMPREHENSIVE METABOLIC PANEL (10/25/2007 11:04 AM OUT PATIENT THERAPIST) GLUCOSE 88 65 - 99 mg/dL INTERFACE SYSTEM CREATININE 0.79 0.51 - 0.95 mg/dL INTERFACE SYSTEM CALCIUM 8.9 8.4 - 10.2 mg/dL INTERFACE SYSTEM ALKALINE PHOSPHATASE 57 35 - 104 U/L INTERFACE SYSTEM AST 40(H) 12 - 32 U/L INTERFACE SYSTEM ALT 30 0 - 31 U/L INTERFACE SYSTEM TOTAL PROTEIN 7.1 6.3 - 8.6 g/dL INTERFACE SYSTEM ALBUMIN 4.2 3.4 - 4.8 g/dL INTERFACE SYSTEM BILIRUBIN TOTAL 0.1(L) 0.2 - 1.0 mg/dL INTERFACE SYSTEM BUN 11 6 - 20 mg/dL INTERFACE SYSTEM SODIUM 137 135 - 145 mmol/L INTERFACE SYSTEM POTASSIUM 4.5 3.5 - 4.9 mmol/L INTERFACE SYSTEM CHLORIDE 99 96 - 108 mmol/L INTERFACE SYSTEM CO2 31(H) 22 - 30 mmol/L INTERFACE SYSTEM GFR, >60 >=60 mL/min/1. 7 sq meter INTERFACE SYSTEM GFR >60 >=60 mL/min/1. 7 sq meter INTERFACE SYSTEM Comment: Estimated GFR rate interpretative information for both Americans and non- Americans is available on the [facility] Intranet at: [email or web address] Select: Lab Policies and Procedures Select: Reference Ranges - GFR 10/25/2007 11:0 4 AM OUT PATIENT THERAPIST us Kylie Reynolds MD CHEMISTRY ORDERABLES Final Resul t Performing Organization Address [facility] de Phone Number INTERFACE SYSTEM Refer to clinic/hospital department * (ABNORMAL) LIPID PANEL (10/25/2007 11:04 AM OUT PATIENT THERAPIST) CHOLESTEROL 190 100 - 199 mg/dL INTERFACE SYSTEM TRIGLYCERIDE 85 10 - 149 mg/dL INTERFACE SYSTEM HDL 65(H) 40 - 59 mg/dL INTERFACE SYSTEM CHOL/HDL RATIO 2.9 2.0 - 5.0 INTER FACE SYSTEM LDL CALCULATED 108(H) <=99 mg/dL INTERFACE SYSTEM LIPID PANEL COMMENT See Below INTERFACE SYSTEM Comment: The adult ATP and pediatric NCEP classifications for lipids are available on the [facility] Intranet at: [email or web address] Select: Lab Policies and Procedures,Current Select: Lipid Panel Interpretation 10/25/2007 11:0 4 AM OUT PATIENT THERAPIST us Kylie Reynolds MD CHEMISTRY ORDERABLES Final Resul t Performing Organization Address [facility] Co nv Phone Number INTERFACE SYSTEM Refer to clinic/hospital department documented in this encounter Visit Diagnoses Diagnosis Other and unspecified hyperlipidemia documented in this encounter Care Teams Foamite Mixer Relationship Specialty Start Date End Date Kylie Reynolds MD NO ADDRESS ON FILE PCP - General 01/23/01 02/25/16 documented as of this encounter
--- OUTSIDE RECORDS SUMMARY | 2024-10-23 21:44 | XMS_ITS | Encounter Summary ---
Author Organization [facility] Address [address] [place] [address] Care Team Providers Care Tin Plater Name Role Phone Kylie Reynolds MD Primary Care Provider Brennan le Encounter Details Date Type Department Care Team (Latest Contact Info) Description 08/17/2006 Outpatient Historical HIS [facility] [place] [place] [address] [address] Degeneration of Cervical Intervertebral Disc (Primary Dx) Social History Tobacco Use Types Packs/Day Years Used Date Smoking Tobacco: Never Assessed Comments Unknown Sex and Gender Information Value Date Recorded Sex Assigned at Not on file Legal Sex Female 5:26 AM AREA INTELLIGENCE TECHNICIAN Gender Identity Not on file Sexual Orientation Not on file documented as of this encounter Plan of Treatment Not on file documented as of this encounter Visit Diagnoses Diagnosis Degeneration of cervical intervertebral disc- Primary documented in this encounter Care Teams Tin Plater Relationship Specialty Start Date End Date Kylie Reynolds MD NO ADDRESS ON FILE PCP - General 01/23/01 02/25/16 documented as of this encounter
--- OUTSIDE RECORDS SUMMARY | 2024-10-23 21:45 | XMS_ITS | Encounter Summary ---
Author Organization [employer] Address [address] [place] [address] Care Team Providers Care Fleet Driver Name Role Phone Kylie Reynolds MD Primary Care Provider Unavailab le Encounter Details Date Type Department Care Team (Late st Contact Info) Description 07/28/2004 Outpatient [facility] [address] [place] [phone] Kylie Reynolds MD NO ADDRESS ON FILE Social History Tobacco Use Types Packs/Day Years Used Date Smoking Tobacco: Never Assessed Comments Unknown Sex and Gender Information Value Date Recorded Sex Assigned at Not on file Legal Sex Female 5:26 AM CNA GNA Gender Identity Not on file Sexual Orientation Not on file documented as of this encounter Plan of Treatment Not on file documented as of this encounter Visit Diagnoses Not on filedocumented in this encounter Care Teams Fleet Driver Relationship Specialty Start Date End Date Kylie Reynolds MD NO ADDRESS ON FILE PCP - General 01/23/01 02/25/16 documented as of this encounter
--- OUTSIDE RECORDS SUMMARY | 2024-10-23 21:45 | XMS_ITS | Encounter Summary ---
Author Organization [facility] Address [address] [facility] [place] [address] Phone Care Team Providers Care Engineering Laboratory Technician Name Role Phone Ramin Angeles DO Unavailable [phone] Jeniffer Burciaga MD Primary Care Provider [phone] Lizz Mccauley RN Unavailable Unavailable Lincoln Simpson DPM Unavailable Unavailable Provider, None Primary Care Provider Unavailabl e Martín Cuenca MD Primary Care Provider [phone] Bairon Ryan MD Unavailable [phone] Larisa Eisenberg RESPIRATORY THERAPY AIDE, BLEACH LIQUOR MAKER Unavailable + [phone] Cynthia Woody RESPIRATORY THERAPY AIDE, BLEACH LIQUOR MAKER Primary Care Provider + Elio Monae MD Unavailable Gorge Morel MD Primary Care Provider + [phone] Reason for Visit * Reason Comments Medication Refill Encounter Details Date Type Department Care Team (Late st Contact Info) Description 08/07/2022 Refill [facility] #2 [place] [address] Jeniffer Burciaga MD #2 [place] [address] Medication Refill Social History Tobacco Use Types Packs/Day Years Used Date Smoking Tobacco: Former Cigarettes 1 22 1 10/04/1969 - 09/18/1991 Smokeless Tobacco: Never Comments:Started around age of 20 Alcohol Use Standard Drinks/Week Comments No 0 (1 standard drink = 0.6 oz pur e alcohol) 1990 stopped PHQ-2 Answer Date Recorded Total Score - Questions 1-9 0 11/18 Education Answer Date Recorded What is the highest level of school you have completed or the highest degree you have received? Bachelor's degree (e.g., BA, AB, BS) 09/21/2020 Sexually Active Control Partners Comments Yes Male Comments No Sex and Gender Information Value Date Recorded Sex Assigned at Female 11/30/2023 12:27 PM CDT Legal Sex Female 12:40 AM CDT Gender Identity Female 11/30/2023 12:27 PM CDT Sexual Orientation Straight 11/30/2023 12 :27 PM CDT documented as of this encounter Plan of Treatment Upcoming Encounters Date Type Department Care Team (Late st Contact Info) Description 11/05/2024 1:30 PM TRADEMARK ATTORNEY Appointment [facility] [address] [place] [address] Ovi Trinidad, RESPIRATORY THERAPY AIDE, BLEACH LIQUOR MAKER #2 [place] [address] Discharge Disposition: Discharged to home or Selfcare 11/13/2024 8:00 AM TRADEMARK ATTORNEY Procedure Visit [facility] #2 [place] [address] Davion Alicea MD #[address] [address] 12/18/2024 10:30 AM CDT Office Visit [facility] - [place] #2 [place] [address] Cynthia Woody, RESPIRATORY THERAPY AIDE, BLEACH LIQUOR MAKER [address]2 [place] [address] 03/10/2025 1:00 PM CDT [facility] [address] [place] [address] Gilmar Bond MD [address] [place] [address] Discharge Disposition: Discharged to home or Selfcare documented as of this encounter Visit Diagnoses Diagnosis Lumbar radiculopathy Thoracic or lumbosacral neuritis or radiculitis, unspecified documented in this encounter Additional Health Concerns Assessment Noted Time PHQ-9 Depression Total Score: 0 04/12/20 18 2:00 PM CDT documented as of this encounter Care Teams Engineering Laboratory Technician Relationship Specialty Start Date End Date Jeniffer Burciaga MD #2 [place] [address] PCP - General Family Medicine 02/10/16 09/06/23 Provider, None [place] PCP - General 09/07/23 10/05/23 Martín Cuenca MD #1 [place] [address] PCP - General Family Medicine 10/06/23 02/05/24 Cynthia Woody, RESPIRATORY THERAPY AIDE, BLEACH LIQUOR MAKER #2 [place] [address] PCP - General Advanced Practice Nurse 02/07/24 Gorge Morel MD [address] [place] [address] PCP - General Infectious Disease 10/15/24 Ramin Angeles DO Consulting Physician Gastroenterology 01/14/16 08/20/24 Lizz Mccauley RN [place] Supervisor Warping Department 12/15/21 08/07/22 Lincoln Simpson DPNicko Podiatry 03/30/22 Bairon Ryan MD #[address] [place] [address] Consulting Physician Neurology 09/07/23 Larisa Eisenberg APRN, BLEACH LIQUOR MAKER #2 [facility] [address] [place] [address] Nurse Practitioner Advanced Practice Nurse 01/26/24 Elio Monae MD #2 [place] [address] Consulting Physician Pulmonary Disease 06/05/24 documented as of this encounter
--- OUTSIDE RECORDS SUMMARY | 2024-10-23 21:45 | XMS_ITS | Encounter Summary ---
Author Organization [facility] Address [address] [facility] [facility] [address] [address] Phone Care Team Providers Care Business Machine Mechanic Name Role Phone Ramin Angeles DO Unavailable [phone] Jeniffer Burciaga MD Primary Care Provider [phone] Lizz Mccauley RN Unavailable Unavailable Lincoln Simpson DPM Unavailable Unavailable Provider, None Primary Care Provider Unavailabl e Martín Cuenca MD Primary Care Provider [phone] Bairon Ryan MD Unavailable [phone] Larisa Eisenberg JANITOR HELPER, FILE CLERK DATA ENTRY Unavailable + [phone] Cynthia Woody JANITOR HELPER, FILE CLERK DATA ENTRY Primary Care Provider + Elio Monae MD Unavailable Gorge Morel MD Primary Care Provider + [phone] Reason for Visit * Reason Comments Medication Refill Encounter Details Date Type Department Care Team (Late st Contact Info) Description 12/09/2021 Refill [facility] #2 [place] [address] Jeniffer Burciaga MD #2 [place] [address] Medication Refill Social History Tobacco Use Types Packs/Day Years Used Date Smoking Tobacco: Former Cigarettes 1 22 1 10/04/1969 - 09/18/1991 Smokeless Tobacco: Never Comments:Started around age of 20 Alcohol Use Standard Drinks/Week Comments No 0 (1 standard drink = 0.6 oz pur e alcohol) 1990 stopped Education Answer Date Recorded What is the [...] Orientation Straight 11/30/2023 12 :27 PM CDT COVID-19 Exposure Response Date Recorded In the last 10 days, have yo u been in contact with someone who was confirmed or suspected to have Coronavirus/COVID-19? No / Unsure 12/07/2021 8:44 AM CDT documented as of this encounter Miscellaneous Notes * Telephone Encounter - Cheryl Story RN - 12/10/2021 3:08 PM CDT Discontinued 10/28/[address] timmons - alternate therapy documented in this encounter Plan of Treatment Upcoming Encounters Date Type Department Care Team (Late st Contact Info) Description 11/05/2024 1:30 PM DIRECTOR OF QUALITY IMPROVEMENT Appointment [facility] [address] [place] [address] Ovi Trinidad APRN, FILE CLERK DATA ENTRY #2 [place] [address] Discharge Disposition: Discharged to home or Selfcare 11/13/2024 8:00 AM DIRECTOR OF QUALITY IMPROVEMENT Procedure Visit [facility] #2 [place] [address] Davion Alicea MD #[address] [address] 12/18/2024 10:30 AM CDT Office Visit [facility] #2 [place] [address] Cynthia Woody, JANITOR HELPER, FILE CLERK DATA ENTRY #2 [place] [address] 03/10/2025 1:00 PM CDT [facility] [address] [place] [address] Gilmar Bond MD [address] [place] [address] Discharge Disposition: Discharged to home or Selfcare documented as of this encounter Visit Diagnoses Not on filedocumented in this encounter Additional Health Concerns Assessment Noted Time PHQ-9 Depression Total Score: 0 04/12/20 18 2:00 PM CDT documented as of this encounter Care Teams Business Machine Mechanic Relationship Specialty Start Date End Date Jeniffer Burciaga MD #2 [place] [address] PCP - General Family Medicine 02/10/16 09/06/23 Provider, None [place] PCP - General 09/07/23 10/05/23 Martín Cuenca MD #1 [place] [address] PCP - General Family Medicine 10/06/23 02/05/24 Cynthia Woody APRN, FILE CLERK DATA ENTRY #2 [place] [address] PCP - General Advanced Practice Nurse 02/07/24 Gorge [place]l [place] [place] [address] PCP - General Infectious Disease 10/15/24 Ramin Angeles DO Consulting Physician Gastroenterology 01/14/16 08/20/24 Lizz Mccauley, SRINATH [place] Powder Press Operator 12/15/21 08/07/22 Lincoln Simpson, DPM Podiatry 03/30/22 Bairon Ryan MD #2 [place] [address] Consulting Physician Neurology 09/07/23 Larisa Eisenberg APRN, FILE CLERK DATA ENTRY #2 [facility] [address] [place] [address] Nurse Practitioner Advanced Practice Nurse 01/26/24 Elio Monae MD #2 [place] [address] Consulting Physician Pulmonary Disease 06/05/24 documented as of this encounter
--- OUTSIDE RECORDS SUMMARY | 2024-10-23 21:45 | XMS_ITS | Encounter Summary ---
Author Organization [facility] Address [address] [facility] [place] [address] Phone Care Team Providers Care Police Sergeant Precinct Name Role Phone Ramin Angeles DO Unavailable [phone] Jeniffer Burciaga MD Primary Care Provider [phone] Lizz Mccauley RN Unavailable Unavailable Lincoln Simpson DPM Unavailable Unavailable Provider, None Primary Care Provider Unavailabl e Martín Cuenca MD Primary Care Provider [phone] Bairon Ryan MD Unavailable [phone] Larisa Eisenberg SENIOR SALES MANAGER, TIME STUDY ENGINEER Unavailable + [phone] Cynthia Woody SENIOR SALES MANAGER, TIME STUDY ENGINEER Primary Care Provider + Elio Monae MD Unavailable Gorge Morel MD Primary Care Provider + [phone] Reason for Visit * Reason Comments Medication Refill Encounter Details Date Type Department Care Team (Late st Contact Info) Description 12/26/2021 Refill [facility] #2 [place] [address] Jeniffer Burciaga MD #2 [place] [address] Medication Refill Social History Tobacco Use Types [...] suspected to have Coronavirus/COVID-19? No / Unsure 12/28/2021 8:08 AM CDT documented as of this encounter Plan of Treatment Upcoming Encounters Date Type Department Care Team (Late st Contact Info) Description 11/05/2024 1:30 PM GOLF COURSE LABORER Appointment [facility] [address] [place] [address] Ovi Trinidad, SENIOR SALES MANAGER, TIME STUDY ENGINEER #2 [place] [address] Discharge Disposition: Discharged to home or Selfcare 11/13/2024 8:00 AM GOLF COURSE LABORER Procedure Visit [facility] #2 [place] [address] Davion Alicea MD #[address] [address] 12/18/2024 10:30 AM CDT Office Visit [facility] #2 [place] [address] Cynthia Woody, SENIOR SALES MANAGER, TIME STUDY ENGINEER #[address] [place] [address] 03/10/2025 1:00 PM CDT [facility] [address] [place] [address] Gilmar Bond MD [address] [place] [address] Discharge Disposition: Discharged to home or Selfcare documented as of this encounter Visit Diagnoses Not on filedocumented in this encounter Additional Health Concerns Assessment Noted Time PHQ-9 Depression Total Score: 0 04/12/20 18 2:00 PM CDT documented as of this encounter Care Teams Police Sergeant Precinct Relationship Specialty Start Date End Date Jeniffer Burciaga MD #2 [place] [address] PCP - General Family Medicine 02/10/16 09/06/23 Provider, None [place] PCP - General 09/07/23 10/05/23 Martín Cuenca MD #1 [place] [address] PCP - General Family Medicine 10/06/23 02/05/24 Cynthia Woody, SENIOR SALES MANAGER, TIME STUDY ENGINEER #[address] [place] [address] PCP - General Advanced Practice Nurse 02/07/24 Gorge Morel MD [address] [place] [address] PCP - General Infectious Disease 10/15/24 Ramin Angeles DO Consulting Physician Gastroenterology 01/14/16 08/20/24 Lizz Mccauley, RN [place] Keg Washer 12/15/21 08/07/22 Lincoln Simpson, DPM Podiatry 03/30/22 Bairon Ryan MD #[address] [place] [address] Consulting Physician Neurology 09/07/23 Larisa Eisenberg APRN, TIME STUDY ENGINEER #2 [facility] [address] [place] [address] Nurse Practitioner Advanced Practice Nurse 01/26/24 Elio Monae MD #[address] [place] [address] Consulting Physician Pulmonary Disease 06/05/24 documented as of this encounter
--- OUTSIDE RECORDS SUMMARY | 2024-10-23 21:45 | XMS_ITS | Encounter Summary ---
Author Organization [facility] Address [address] [place] [address] Care Team Providers Care Embossograph Operator Name Role Phone Klyie Reynolds MD Primary Care Provider Unavail le Encounter Details Date Type Department Care Team (Late st Contact Info) Description 08/22/2005 Outpatient Historical [facility] Medicine [address] [place] [address] Kylie Reynolds MD NO ADDRESS ON FILE Social History Tobacco Use Types Packs/Day Years Used Date Smoking Tobacco: Never Assessed Comments Unknown Sex and Gender Information Value Date Recorded Sex Assigned at Not on file Legal Sex Female 5:26 AM RELATIONSHIP BANKER Gender Identity Not on file Sexual Orientation Not on file documented as of this encounter Last Filed Vital Signs Vital Sign Reading Time Taken Comments Blood Pressure 137/87 08/22/2005 11:30 AM RELATIONSHIP BANKER Pulse 60 08/22/2005 11:30 AM RELATIONSHIP BANKER Temperature 36 C (96.8 F) 08/22/2005 11:30 AM RELATIONSHIP BANKER Respiratory Rate - - Oxygen Saturation - - Inhaled Oxygen Concentration - - Weight - - Height - - Body Mass Index - - documented in this encounter Plan of Treatment Not on file documented as of this encounter Visit Diagnoses Not on filedocumented in this encounter Care Teams Embossograph Operator Relationship Specialty Start Date End Date Kylie Reynolds MD NO ADDRESS ON FILE PCP - General 01/23/01 02/25/16 documented as of this encounter
--- OUTSIDE RECORDS SUMMARY | 2024-10-23 21:45 | XMS_ITS | Encounter Summary ---
Author Organization [facility] Address [address] [facility] [place] [address] Phone Care Team Providers Care Key Account Executive Name Role Phone Ramin Angeles DO Unavailable [phone] Jeniffer Burciaga MD Primary Care Provider [phone] Lizz Mccauley RN Unavailable Unavailable Lincoln Simpson DPM Unavailable Unavailable Provider, None Primary Care Provider Unavailabl e Martín Cuenca MD Primary Care Provider [phone] Bairon Ryan MD Unavailable [phone] Larisa Eisenberg BREAD SUPERVISOR, CONTRACT OFFICER Unavailable + [phone] Cynthia Woody BREAD SUPERVISOR, CONTRACT OFFICER Primary Care Provider + Elio Monae MD Unavailable Gorge Morel MD Primary Care Provider + [phone] Encounter Details Date Type Department Care Team (Late st Contact Info) Description 11/15/2021 [facility] [address] [place] [address] [place] [address] [facility] [address] [place] [address] Bacteremia; Infection and inflammatory reaction due to internal fixation device of right ulna, initial encounter ([facility]) Social History Tobacco Use Types Packs/Day Years [...] Exposure Response Date Recorded In the last month, have you been in contact with someone who was confirmed or suspected to have Coronavirus / COVID-19? No / Unsure 11/16/2021 2:05 PM PIERCER OPERATOR documented as of this encounter Plan of Treatment Upcoming Encounters Date Type Department Care Team (Late st Contact Info) Description 11/05/2024 1:30 PM PIERCER OPERATOR Appointment [facility] [address] [place] [address] Ovi Trinidad, BREAD SUPERVISOR, CONTRACT OFFICER #2 [place] [address] Discharge Disposition: Discharged to home or Selfcare 11/13/2024 8:00 AM PIERCER OPERATOR Procedure Visit [facility] #2 [place] [address] Davion Alicea MD #2 [facility] [address] [place] [address] 12/18/2024 10:30 AM CDT Office Visit [facility] #2 [place] [address] Cynthia Woody, BREAD SUPERVISOR, CONTRACT OFFICER #[address] [place] [address] 03/10/2025 1:00 PM CDT Office Visit [facility] On[facility] Services [address] [place] [address] Gilmar Bond MD [address] [place] [address] Discharge Disposition: Discharged to home or Selfcare documented as of this encounter Procedures Procedure Name Priority Date/Time Associated Diagnosis Comments CBC WITH AUTO DIFFERENTIAL Routine 11/15/2021 10:45 AM PIERCER OPERATOR Bacteremia Infection and inflammatory reaction due to internal fixation device of right ulna, initial encounter (HCC) VANCOMYCIN TROUGH Routine 11/15/2021 10: 45 AM PIERCER OPERATOR Bacteremia Infection and inflammatory reaction due to internal fixation device of right ulna, initial encounter (HCC) CMP (COMPREHENSIVE METABOLIC PANEL) Routine 11/15/2021 10:45 AM PIERCER OPERATOR Bacteremia Infection and inflammatory reaction due to internal fixation device of right ulna, initial encounter (HCC) COMPLETE BLOOD COUNT (CBC) WITH DIFF Routine 11/15/2021 10:45 AM PIERCER OPERATOR Bacteremia Infection and inflammatory reaction due to internal fixation device of right ulna, initial encounter (HCC) documented in this encounter Results * (ABNORMAL) CBC WITH AUTO DIFFERENTIAL (11/15/2021 10:45 AM PIERCER OPERATOR) WBC 4.24 4.00 - 12.00 10(3)/mcL 11/15/2021 1:18 PM PIERCER OPERATOR [facility] RBC 2.98(L) 3.80 - 5.30 10(6)/mcL 11/15/2021 1:18 PM [facility] HEMOGLOBIN (HGB) 7.7(L) 12.0 - 15.8 g/dL 11/15/2021 1:18 PM [facility] HEMATOCRIT (HCT) 25.5(L) 36.0 - 47.0 % 11/15/2021 1:18 PM [facility] MCV 85.6 82.0 - 96.0 fL 11/15/2021 1:18 PM [facility] MCH 25.8(L) 26.0 - 34.0 pg 11/15/2021 1:18 PM [facility] MCHC 30.2(L) 31.0 - 36.0 g/dL 11/15/2021 1:18 PM [facility] PLATELET COUNT 453(H) 140 - 440 10(3)/mcL 11/15/2021 1:18 PM [facility] RDW 15.3 11.8 - 15.5 % 11/15/2021 1:18 PM [facility] MPV 9.3(L) 9.7 - 12.4 fL 11/15/2021 1:18 PM [facility] NEUTROPHILS 41.8(L) 47.0 - 73.0 % 11/15/2021 1:18 PM [facility] LYMPHOCYTES 41.3 18.0 - 42.0 % 11/15/2021 1:18 PM [facility] MONOCYTES 12.7(H) 4.0 - 12.0 % 11/15/2021 1:18 PM [facility] EOSINOPHILS 3.5 0.0 - 5.0 % 11/15/2021 1:18 PM [facility] BASOPHILS 0.7 0.0 - 1.0 % 11/15/2021 1:18 PM [facility] ABSOLUTE NEUTROPHILS 1.77 1.60 - 7.70 10(3)/mcL 11/15/2021 1:18 PM PIERCER OPERATOR [facility] ABSOLUTE LYMPHOCYTES 1.75 1.30 - 3.20 10(3)/[facility] 11/15/2021 1:18 PM PIERCER OPERATOR [facility] ABSOLUTE MONOCYTES 0.54 0.20 - 1.00 10(3)/[facility] 11/15/2021 1:18 PM PIERCER OPERATOR [facility] ABSOLUTE EOSINOPHIL 0.15 0.00 - 0.40 10(3)/[facility] 11/15/2021 1:18 PM PIERCER OPERATOR [facility] ABSOLUTE BASOPHILS 0.03 0.00 - 0.10 10(3)/[facility] 11/15/2021 1:18 PM PIERCER OPERATOR [facility] NRBC PER 100 WBC 0 11/15/19 1:18 PM PIERCER OPERATOR [facility] Blood No Phlebotomy Charged / Unknown 11/15/2021 10:45 AM PIERCER OPERATOR 11/15/2021 1:11 PM PIERCER OPERATOR Anya Mccrary MD HEMATOLOGY ORDERABLES Fi nal Result [facility] #[address] [place] [address] * (ABNORMAL) VANCOMYCIN TROUGH (11/15/2021 10:45 AM PIERCER OPERATOR) Pathologist [facility] VANCOMYCIN, TROUGH 12(H) 5 - 10 mcg/mL 11/15/2021 1:54 PM PIERCER OPERATOR [facility] Blood No Phlebotomy Charged / Unknown 11/15/2021 10:45 AM PIERCER OPERATOR 11/15/2021 1:11 PM PIERCER OPERATOR Anya Mccrary MD CHEMISTRY ORDERABLES Fin al Result [facility] #[address] [place] [address] * (ABNORMAL) CMP (COMPREHENSIVE METABOLIC PANEL) (11/15/2021 10:45 AM PIERCER OPERATOR) SODIUM 137 136 - 144 mmol/L 11/15/2021 1:54 PM [facility] POTASSIUM 4.0 3.5 - 5.1 mmol/L 11/15/2021 1:54 PM [facility] CHLORIDE 100 100 - 110 mmol/L 11/15/2021 1:54 PM [facility] CO2, VENOUS 24 22 - 32 mmol/L 11/15/2021 1:54 PM [facility] ANION GAP 17.0 8.0 - 20.0 mmol/L 11/15/2021 1:54 PM [facility] GLUCOSE 109(H) 70 - 99 mg/dL 11/15/2021 1:54 PM [facility] BUN 14 8 - 23 mg/dL 11/15/2021 1:54 PM [facility] CREATININE, BLOOD 0.59(L) 0.60 - 1.10 mg/dL 11/15/2021 1:54 PM [facility] BUN/CREATININE RATIO 24(H) 12 - 20 ratio 11/15/2021 1:54 PM [facility] TOTAL PROTEIN 6.6 6.0 - 8.3 g/dL 11/15/2021 1:54 PM [facility] ALBUMIN 4.1 3.5 - 5.2 g/dL 11/15/2021 1:54 PM [facility] Comment: The colormetric methods used for the determination of Albumin may lead to falsely elevated test results in patients suffering from renal failure or insufficiency due to interference with other proteins. A/G RATIO 1.6 1.0 - 2.0 11/15/2021 1:54 PM [facility] CALCIUM 9.0 8.9 - 10.3 mg/dL 11/15/2021 1:54 PM [facility] T BILI <0.3 <=1.2 mg/dL 11/15/2021 1:54 PM [facility] SGOT (AST) 20 <=32 U/L 11/15/2021 1:54 PM PIERCER OPERATOR [facility] SGPT (ALT) 21 <=41 U/L 11/15/2021 1:54 PM PIERCER OPERATOR [facility] ALKALINE PHOSPHATASE 129(H) 35 - 105 U/L 11/15/2021 1:54 PM PIERCER OPERATOR [facility] GFR, EST. NONAFRICAN >60 >=60 11/15/2021 1:54 PM PIERCER OPERATOR [facility] GFR, EST. >60 >=60 022 1:54 PM PIERCER OPERATOR [facility] Comment: Creatinine Clearance is the preferred criteria for selecting drug dose adjustments in renally impaired patients. The GFR is provided as additional pertinent clinical information. GFR is reported in mL/min/1.73 sq m. Blood No Phlebotomy Charged / Unknown 11/15/2021 10:45 AM PIERCER OPERATOR 11/15/2021 1:11 PM PIERCER OPERATOR Anya Mccrary MD CHEMISTRY ORDERABLES Fin al Result [facility] #[address] [place] [address] documented in this encounter Visit Diagnoses Diagnosis Bacteremia Infection and inflammatory reaction due to internal fixation device of right ulna, initial encounter (HCC) documented in this encounter Additional Health Concerns Assessment Noted Time PHQ-9 Depression Total Score: 0 04/12/20 18 2:00 PM CDT documented as of this encounter Care Teams Key Account Executive Relationship Specialty Start Date End Date Jeniffer Burciaga MD #2 [place] [address] PCP - General Family Medicine 02/10/16 09/06/23 Provider, None [place] PCP - General 09/07/23 10/05/23 Martín Cuenca MD #1 [place] [address] PCP - General Family Medicine 10/06/23 02/05/24 Cynthia Woody, BREAD SUPERVISOR, CONTRACT OFFICER #[address] [place] [address] PCP - General Advanced Practice Nurse 02/07/24 Gorge Morel MD [address] [place] [address] PCP - General Infectious Disease 10/15/24 Ramin Angeles DO Consulting Physician Gastroenterology 01/14/16 08/20/24 Lizz Mccauley RN [place] Hostage Negotiator 12/15/21 08/07/22 Lincoln Simpson DPM Podiatry 03/30/22 Bairon Ryan MD #[address] [place] [address] Consulting Physician Neurology 09/07/23 Larisa Eisenberg APRN, CONTRACT OFFICER #2 [facility] [address] [place] [address] Nurse Practitioner Advanced Practice Nurse 01/26/24 Elio Monae MD #[address] [place] [address] Consulting Physician Pulmonary Disease 06/05/24 documented as of this encounter
--- OUTSIDE RECORDS SUMMARY | 2024-10-23 21:45 | XMS_ITS | Encounter Summary ---
Author Organization [facility] Address [address] [place] [address] Care Team Providers Care Linotype Machinist Apprentice Name Role Phone Kylie Reynolds MD Primary Care Provider Unavail le Encounter Details Date Type Department Care Team (Late st Contact Info) Description 10/26/2005 Outpatient Historical [facility] SURGEON/PRESIDENT - Medical [address] [address] Yosvany Coppola MD [address] [place] [phone] Social History Tobacco Use Types Packs/Day Years Used Date Smoking Tobacco: Never Assessed Comments Unknown Sex and Gender Information Value Date Recorded Sex Assigned at Not on file Legal Sex Female 5:26 AM PLASTIC SHEETS FINISHING SUPERVISOR Gender Identity Not on file Sexual Orientation Not on file documented as of this encounter Plan of Treatment Not on file documented as of this encounter Visit Diagnoses Not on filedocumented in this encounter Care Teams Linotype Machinist Apprentice Relationship Specialty Start Date End Date Kylie Reynolds MD NO ADDRESS ON FILE PCP - General 01/23/01 02/25/16 documented as of this encounter
--- OUTSIDE RECORDS SUMMARY | 2024-10-23 21:45 | XMS_ITS | Encounter Summary ---
Author Organization [facility] Address [address] [place] [address] Care Team Providers Care Thermal Cutting Machine Operator Name Role Phone Kylie Reynolds MD Primary Care Provider Brennan le Encounter Details Date Type Department Care Team (Latest Contact Info) Description 01/25/2008 Outpatient Historical [facility] Yosvany Bell MD [address] [place] [phone] Screening Examination for Venereal Disease Social History Tobacco Use Types Packs/Day Years Used Date Smoking Tobacco: Never Assessed Comments Unknown Sex and Gender Information Value Date Recorded Sex Assigned at Not on file Legal Sex Female 5:26 AM SHIRT IRONER SUPERVISOR Gender Identity Not on file Sexual Orientation Not on file documented as of this encounter Plan of Treatment Not on file documented as of this encounter Procedures Procedure Name Priority Date/Time Associated Diagnosis Comments HIV DETECTION W/REFLX CONFIRMATION Routine 01/25/2008 4:00 PM CDT HEPATITIS B SURFACE ANTIGEN Routine 01/25/2008 4:00 PM CDT HEPATITIS C ANTIBODY Routine 01/25/2008 4:00 PM CDT RPR Routine 01/25/2008 4:00 PM CDT documented in this encounter Results * HEPATITIS B SURFACE ANTIGEN (01/25/2008 4:00 PM CDT) HEPATITIS B SURFACE AG NON-REACT MATTHEW NON-REACT MATTHEW [facility] [place] Comment: Lab test performed by: [email or web address] [address] TRIXIE VICTOR MD Blood specimen (specimen) 01/25/2008 4:00 PM CDT 01/25/2008 4:47 PM CDT Yosvany Coppola MD CHEMISTRY ORDERABLES Final R esult Performing Organization Address [facility] Co de Phone Number [facility] [place] CLIA# [id number] [address] [place] [address] * RPR (01/25/2008 4:00 PM CDT) Pathologist [facility] RPR NON-REACTI VE NON-REACT MATTHEW [facility] [place] Comment: Lab test performed by: [facility] [address] [address] [place] [address] TRIXIE VICTOR MD Blood specimen (specimen) 01/25/2008 4:00 PM CDT 01/25/2008 4:47 PM CDT Yosvany Coppola MD CHEMISTRY ORDERABLES Final R esult Performing Organization Address [facility] Co de Phone Number [facility] [place] CLIA# [id number] [address] [place] [address] * HIV ANTIBODY W/REFLX CONFIRMATION (01/25/2008 4:00 PM CDT) Pathologist [facility] HIV-1 AND 2 ABS NON-REACT MATTHEW NON-REACT MATTHEW [facility] [place] Comment: A NON-REACTIVE HIV 1/2 ANTIBODY RESULT DOES NOT EXCLUDE HIV INFECTION SINCE THE TIME FRAME FOR SEROCONVERSION IS VARIABLE. IF ACUTE HIV INFECTION IS SUSPECTED, ANTIBODY RETESTING AND NUCLEIC ACID AMPLIFICATION (HIV DNA/RNA) TESTING IS RECOMMENDED. Lab test performed by: [email or web address] [address] TRIXIE VICTOR MD Effective February 19, 2007, HIV 1/2 Antibody Screen with Reflexed Confirmation has replaced HIV-1 Antibody Screen. HIV-1 Antibody Screen is no longer offered due to lack of available kits from the printed circuit board panels plater. Blood specimen (specimen) 01/25/2008 4:00 PM CDT 01/25/2008 4:47 PM CDT Yosvany Coppola MD CHEMISTRY ORDERABLES Final R esult Performing Organization Address City/[facility]/ZIP Co de Phone Number [facility] [place] CLIA# [id number] [address] [place] [address] * HEPATITIS C ANTIBODY (01/25/2008 4:00 PM CDT) SIGNAL TO CUT OFF 0.08 <1.00 [facility] Comment: Lab test performed by: [email or web address] [address] TRIXIE VICTOR MD HEPATITIS C AB NON-REACT MATTHEW NON-REACT MATTHEW [facility] [place] Blood specimen (specimen) 01/25/2008 4:00 PM CDT 01/25/2008 4:47 PM CDT Yosvany Coppola MD CHEMISTRY ORDERABLES Final R esult Performing Organization Address City/[facility] Co de Phone Number [facility] [place] CLIA# [id number] [address] [place] [address] documented in this encounter Visit Diagnoses Diagnosis Screening examination for venereal disease documented in this encounter Care Teams Thermal Cutting Machine Operator Relationship Specialty Start Date End Date Kylie Reynolds MD NO ADDRESS ON FILE PCP - General 01/23/01 02/25/16 documented as of this encounter
--- OUTSIDE RECORDS SUMMARY | 2024-10-23 21:45 | XMS_ITS | Clinical Summary ---
Author Organization [facility] Address [address] [place] [address] Phone Care Team Providers Care Compliance Program Manager Name Role Phone Unavailable Primary Care Provider Unavailabl e Allergies No known active allergies Medications ATORVASTATIN CALCIUM (LIPITOR PO) Take by mouth. Active fluoxetine (PROZAC) 40 mg Oral Cap Take 40 mg by mouth daily. Active aripiprazole (ABILIFY) 5 mg Oral Tab Take 5 mg by mouth daily. Active lamotrigine (LAMICTAL) 100 mg Oral Tab Take 100 mg by mouth daily. Active fish oil-omega-3 fatty acids 340-1,000 mg Oral Cap Take 1 Cap by mouth daily. Active dextroamphetami ne-amphetamine (ADDERALL) 30 mg tablet Take 30 mg by mouth 2 times daily. 05/27/2021 Active meloxicam (MOBIC) 15 mg tablet 11/11/2020 Active Calcium Carbonate-Vit D3-Min 600 mg calcium- 400 unit Tablet Calcium 600 + D(3) 600 mg (1,500 mg)-400 unit tablet Take 1 tablet twice a day by oral route. Active ASPIRIN ORAL Take by mouth. Active lisinopril-hydr oCHLOROthiazide (ZESTORETIC) 20-25 mg tablet Take 1 Tablet by mouth daily. 06/09/2021 Active Active Problems Problem Noted Date Diagnosed Date Abdominal pain, other specified site 10/24/2007 Influenza with other respiratory manifestations 10/23/2007 Lateral epicondylitis of elbow 07/25/2007 Acute upper respiratory infections of unspecifie d site 12/07/2006 Impacted cerumen 06/19/2006 Pain in limb 06/19/2006 Nausea with vomiting 08/22/2005 Chest pain, unspecified 08/16/2005 Persistent vomiting 08/16/2005 Nausea alone 07/21/2005 Migraine, unspecified, witho ut mention of intractable migraine without mention of status migrainosus 05/10/2005 Allergic rhinitis, cause unspecified 05/10/2005 Essential hypertension, benign 05/10/2005 Bipolar I disorder, most rec ent episode (or current) unspecified 05/10/2005 Other and unspecified hyperlipidemia 05/10/2005 Family history of other cardiovascular diseases( V17.49) 05/10/2005 Overview (10/13/2010): Updating IMO/ICD9 Code and Description Family history of malignant neoplasm of prostate 05/10/2005 Unspecified legally induced without mention of complication 05/10/2005 Varicella without mention of complication 2004 Immunizations Immunization Administration Dates Next Due (ADACEL/BOOSTRIX)(10 YR UP) TDAP VACCINE, 0.5ML, IM 03/24/2020,05/02/2019,09/18/2010 (PREVNAR 13)(6 WKS UP) PNEUM OCOCCAL CONJUGATE (PCV13) 0.5 ML, IM 04/11/2017 (SHINGRIX)(50 YRS UP) ZOSTER VACCINE RECOMBINANT, 0.5 ML, IM 05/31/2019,02/21/2019 (TDVAX)(7 YRS UP) TETANUS AN D DIPHTHERIA TOXOIDS, ADSORBED (2 LF OF TETANUS TOXOID AND 2 LF OF DIPHTHERIA TOXOID), 0.5ML (PF), IM 02/16/2003 INFLUENZA VACCINE QUADRIVALENT 6 MOS UP IM 06/08 INFLUENZA VACCINE QUADRIVALE NT 6 MOS UP PF IM 07/12/2018,05/29/2017 INFLUENZA VACCINE QUADRIVALE NT ADJ 65 YR UP PF IM 06/01/2020 Influenza Seasonal Unspecifi ed Formulation IM 07/18/2016,06/18/2015,06/18/2014 Influenza Seasonal Unspecifi ed Formulation PF IM 10/10/2019,07/17/2016 Influenza Vaccine High Dose 65+ Yrs IM 0 Pneumococcal Polysaccharide Vacc 23-osito IM SCHIP 10/28/2019 Skin Test TB 06/18/2015 Zoster Vaccine Live SQ 04/13/2017 Family History Medical History Relation Name Comments Hypertension Father Heart Failure Mother Hypertension Mother Relation Name Status Comments Father Mother Social History Tobacco Use Types Packs/Day Years Used Date Smoking Tobacco: Former Cigarettes Smokeless Tobacco: Never Alcohol Use Standard Drinks/Week Comments No 0 (1 standard drink = 0.6 oz pur e alcohol) Comments No Sex and Gender Information Value Date Recorded Sex Assigned at Not on file 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 Gender Identity Not on file Sexual Orientation Not on file Last Filed Vital Signs Vital Sign Reading Time Taken Comments Blood Pressure 120/74 06/14/2021 4:08 PM CDT Pulse 68 06/04/2009 2:42 PM CDT Temperature 36.3 C (97.4 F) 06/04/2009 2:26 PM CDT Respiratory Rate 20 06/04/2009 2:42 PM CDT Oxygen Saturation 98% 06/04/2009 2:42 PM CDT Inhaled Oxygen Concentration - - Weight 63.3 kg (139 lb 9.6 oz) 06/14/2021 4:08 P M CDT Height 165.1 cm (5' 5 ) 06/14/2021 4:08 PM CDT Body Mass Index 23.23 06/14/2021 4:08 PM CDT Plan of Treatment Health Maintenance Due Date Last Done Comments FIT-DNA Q 3 years 1997 Flex Sig/CT Colonography Q 5 years 1997 FIT/FOBT Q 1 year 06/17/2005 06/17/2004 BREAST CANCER SCREENING 04/03/2009 04/03/2008 COLORECTAL SCREENING 06/04/2019 06/04/2009 Colorectal Cancer Screening 06/04/2019 INFLUENZA VACCINE (#1) 2024 , 06/01/2020, 10/10/2019, Additional history exists COVID-19 Vaccine (3 - 2023-2 5 season) 2024 11/19/2020, 10/30/2020 RSV VACCINE (60+ or ) (1 - 1-dose 75+ series) 2027 DTAP/TDAP/TD VACCINES (4 - T d or Tdap) 03/24/2030 03/24/2020, 05/02/2019, 09/18/2010, Additional history exists ZOSTER VACCINE Completed 05/31/2019, 02/2019, 04/13/2017 PNEUMOCOCCAL VACCINE 65+ YEARS Completed 10/28/2019 , 04/11/2017 OSTEOPOROSIS SCREENING Completed 01/22/2021 Procedures Procedure Name Priority Date/Time Associated Diagnosis Comments MAMMO SCREEN BILAT W OR WO CAD Routine 04/03/2008 2:51 PM CDT from Last 3 Months or Most Recently Relevant to Health Maintenance Results * MAMMO DIGITAL SCREEN BILAT (04/03/2008 2:51 PM CDT) Anatomical Region Laterality Modality Breast Bilateral Other 04/03/2008 2:51 PM CDT Narrative 04/04/2008 4:57 PM CDT [address] [address] [place], [place] [address] Admit Date: 04/03/2008 RINA GONSALES Sex: F Admit Prov: YOSVANY FUENTES Date: 1950 Primary Care Prov: BRIE STALLWORTH MARI CMRN: [id number] Room: [facility] SSN: [id number] IMAGING SERVICES Ordering Prov: YOSVANY FUENTES Accession Number: [id number] Interpretation BILATERAL FULL FIELD DIGITAL SCREENING MAMMOGRAM WITH CAD. Date: 04/03/2008 History: Routine Screening. Technique: Full field digital craniocaudal and mediolateral oblique projections of both breasts were obtained. Computer aided diagnosis was performed. Comparison: 05/2003, 12/2005 Breast Parenchymal Composition: Scattered fibroglandular densities. Findings: No suspicious mass, suspicious microcalcifications, or architectural distortion in either breast is identified. Since the prior study, there has been no significant interval change. The computer aided diagnosis detects no significant abnormality. Overall Assessment: BI-RADS category 1: Negative. Recommendation: Annual mammography is recommended. Assessment BIRADS: 1-Negative Recommendation: Normal interval follow-up Dictated by: RIVKA GUPTA Electronically signed by: RIVKA GUPTA 04/04/2008 16:56 Transcribed: 04/04/2008 14:47 AMK Procedure Note Rivka Gupta - 04/04/2008 [address] [address] [place], [place] [address] Admit Date: 04/03/2008 RINA GONSALES Sex: F Admit Prov: YOSVANY FUENTES Date: 1950 Primary Care Prov: BRIE STALLWORTH CMRN: [id number] Room: [facility] SSN: [id number] IMAGING SERVICES Ordering Prov: YOSVANY FUENTES Interpretation BILATERAL FULL FIELD DIGITAL SCREENING MAMMOGRAM WITH CAD. Date: 04/03/2008 History: Routine Screening. Technique: Full field digital craniocaudal and mediolateral oblique projections of both breasts were obtained. Computer aided diagnosiswas performed. Comparison: 05/2003, 12/2005 Breast Parenchymal Composition: Scattered fibroglandular densities. Findings: No suspicious mass, suspicious microcalcifications, or architectural distortion in either breast is identified. Since theprior study, there has been no significant interval change. The computeraided diagnosis detects no significant abnormality. Overall Assessment: BI-RADS category 1: Negative. Recommendation: Annual mammography is recommended. Assessment BIRADS: 1-Negative Recommendation: Normal interval follow-up Dictated by: RIVKA GUPTA Electronically signed by: RIVKA GUPTA 04/04/2008 16:56 Transcribed: 04/04/2008 14:47 AMK Yosvany Fuentes MD MAMMO ORDERABLES Final Resul t from Last 3 Months or Most Recently Relevant to Health Maintenance Insurance [facility] [id number] Advance Directives For more information, please contact: [phone] * Full Code (Latest Code Status on File) Date Activated Date Inactivated Comments 06/04/2009 12:53 PM 06/05/2009 2:02 AM
--- OUTSIDE RECORDS SUMMARY | 2024-10-23 21:45 | XMS_ITS | Encounter Summary ---
Author Organization [facility] Address [address] [place] [address] Care Team Providers Care Exercise Physiologist Name Role Phone Kylie Reynolds MD Primary Care Provider Brennan hagan Encounter Details Date Type Department Care Team (Latest Contact Info) Description 12/19/2005 Outpatient [facility] [address] [phone] Yosvany Coppola MD [address] [place] [phone] Other Screening Mammogram (Primary Dx) Social History Tobacco Use Types Packs/Day Years Used Date Smoking Tobacco: Never Assessed Comments Unknown Sex and Gender Information Value Date Recorded Sex Assigned at Not on file 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
--- OUTSIDE RECORDS SUMMARY | 2024-10-23 21:45 | XMS_ITS | Encounter Summary ---
Author Organization [facility] Address [address] [place] [address] Care Team Providers Care Account Development Representative Name Role Phone Kylie Reynolds MD Primary Care Provider Unavailab le Encounter Details Date Type Department Care Team (Late st Contact Info) Description 06/19/2006 Outpatient Historical [facility] Medicine [address] [place] [address] Kylie Reynolds MD NO ADDRESS ON FILE Social History Tobacco Use Types Packs/Day Years Used Date Smoking Tobacco: Never Assessed Comments Unknown Sex and Gender Information Value Date Recorded Sex Assigned at Not on file 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
--- OUTSIDE RECORDS SUMMARY | 2024-10-23 21:45 | XMS_ITS | Encounter Summary ---
Author Organization [facility] Address [address] [facility] [place] [place] [address] Phone Care Team Providers Care Stator Winder Name Role Phone Ramin Angeles DO Unavailable [phone] Jeniffer Burciaga MD Primary Care Provider [phone] Lincoln Simpson DPM Unavailable Unavailable Provider, None Primary Care Provider Unavailabl e Martín Cuenca MD Primary Care Provider [phone] Bairon Ryan MD Unavailable [phone] Larisa Eisenberg BUCKET OPERATOR, OIL AND GAS FIELD TECHNICIAN Unavailable + [phone] Cynthia Woody BUCKET OPERATOR, OIL AND GAS FIELD TECHNICIAN Primary Care Provider + Elio Monae MD Unavailable Gorge Morel MD Primary Care Provider + [phone] Reason for Visit * Reason Comments Medication Refill Encounter Details Date Type Department Care Team (Late st Contact Info) Description 01/10/2023 Refill [facility] [address] [place] [phone] Jeniffer Burciaga MD [address] [place] [address] Medication Refill Social History Tobacco Use Types [...] PM CDT documented as of this encounter Miscellaneous Notes * Telephone Encounter - Alanis Viera RN - 01/10/2023 11:00 AM CDT Medication failed the protocol, provider to review and approve the medication order if appropriate. Requested Prescriptions Pending Prescriptions Disp Refills atorvastatin (LIPITOR) 40 MG Tablet [Pharmacy Med Name: Atorvastatin Calcium 40 MG Oral Tablet] 100Tablet 2 Sig: TAKE 1 TABLET BY MOUTH DAILY Hmg CoA Reductase Inhibitors Protocol Failed - 01/10/2023 10:53 AM Failed - Lipid panel in past 12 months LDL Date Value Ref Range Status 07/06/2021 114 5 - 130 mg/dL Final 06/10/2021 80 0 - 130 mg/dL Final HDL CHOLESTEROL Date Value Ref Range Status 07/06/2021 58.1 >40 mg/dL Final CHOLESTEROL Date Value Ref Range Status 07/06/2021 205 (H) <=200 mg/dL Final TRIGLYCERIDES Date Value Ref Range Status 07/06/2021 165 (H) <150 mg/dL Final VLDL Date Value Ref Range Status 07/06/2021 33 5 - 55 mg/dL Final CHOL/HDL RATIO Date Value Ref Range Status 07/06/2021 3.5 0.0 - 4.4 Final NON-HDL CHOLESTEROL Date Value Ref Range Status 07/06/2021 146.9 (H) <130 mg/dL Final Passed - Visit with relevant provider in past 12 months or upcoming 90 days Recent Visits Date Type Provider Dept 11/30/22 Office Visit Jeniffer Burciaga MD [facility] 09/28/22 Office Visit Cynthia Woody APRN, OIL AND GAS FIELD TECHNICIAN [facility] 06/01/22 Office Visit Jeniffer Burciaga MD [facility] 02/28/22 Office Visit Jeniffer Burciaga MD [facility] 01/12/22 Office Visit Jeniffer Burciaga MD [facility] Showing recent visits within past 365 days and meeting all other requirements Future Appointments No visits were found meeting these conditions. Showing future appointments within next 90 days and meeting all other requirements Refused Prescriptions Disp Refills lisinopril (PRINIVIL, ZESTRIL) 20 MG Tablet [Pharmacy Med Name: Lisinopril 20 MG Oral Tablet] 100 Tablet 2 Sig: TAKE 1 TABLET BY MOUTH DAILY MARILOU Inhibitors Protocol Passed - 01/10/2023 10:53 AM Passed - Serum potassium on record in past 12 months POTASSIUM Date Value Ref Range Status 06/01/2022 4.5 3.5 - 5.1 mmol/L Final Passed - Blood pressure on record in past 12 months Clinician-entered: BP Readings from Last 3 Encounters: 11/30/22 140/80 09/28/22 118/68 06/01/22 120/82 Patient-entered: No data recorded Passed - Visit with relevant provider in past 12 months or upcoming 90 days Recent Visits Date Type Provider Dept 11/30/22 Office Visit Jeniffer Burciaga MD [facility] 09/28/22 Office Visit Cynthia Woody APRN, [facility] 06/01/22 Office Visit Jeniffer Burciaga MD [facility] 02/28/22 Office Visit Jeniffer Burciaga MD [facility] 01/12/22 Office Visit Jeniffer Burciaga MD [facility] Showing recent visits within past 365 days and meeting all other requirements Future Appointments No visits were found meeting these conditions. Showing future appointments within next 90 days and meeting all other requirements Passed - GFR on record in past 12 months GFR, EST. NONAFRICAN Date Value Ref Range Status 06/01/2022 >60 >=60 Final documented in this encounter Plan of Treatment Upcoming Encounters Date Type Department Care Team (Late st Contact Info) Description 11/05/2024 1:30 PM TURN OUT WORKER Appointment [facility] [address] [place] [phone] Ovi Trinidad APRN, OIL AND GAS FIELD TECHNICIAN [address] [place] [address] Discharge Disposition: Discharged to home or Selfcare 11/13/2024 8:00 AM TURN OUT WORKER Procedure Visit [facility] [address] [place] [address] Davion Alicea MD [address] [address] 12/18/2024 10:30 AM CDT Office Visit [facility] [address] [place] [address] Cynthia Woody, BUCKET OPERATOR, OIL AND GAS FIELD TECHNICIAN [address] [place] [address] 03/10/2025 1:00 PM CDT Office Visit [facility] [address] [place] [phone] Gilmar Bond MD [address] [place] [address] Discharge Disposition: Discharged to home or Selfcare documented as of this encounter Visit Diagnoses Not on filedocumented in this encounter Additional Health Concerns Assessment Noted Time PHQ-9 Depression Total Score: 0 04/12/20 18 2:00 PM CDT documented as of this encounter Care Teams Stator Winder Relationship Specialty Start Date End Date Jeniffer Burciaga MD [address] [place] [address] PCP - General Family Medicine 02/10/16 09/06/23 Provider, [facility] PCP - General 09/07/23 10/05/23 Martín Cuenca MD [address] [place] [address] PCP - General Family Medicine 10/06/23 02/05/24 Cynthia Woody, BUCKET OPERATOR, OIL AND GAS FIELD TECHNICIAN [address] [place] [address] PCP - General Advanced Practice Nurse 02/07/24 Gorge Morel MD [address] [place] [address] PCP - General Infectious Disease 10/15/24 Ramin Angeles DO Consulting Physician Gastroenterology 01/14/16 08/20/24 Lincoln Simpson DPM Podiatry 03/30/22 Bairon Ryan MD [address] [place] [phone] Consulting Physician Neurology 09/07/23 Larisa Eisenberg, BUCKET OPERATOR, OIL AND GAS FIELD TECHNICIAN [address] [facility] [address] [place] [address] Nurse Practitioner Advanced Practice Nurse 01/26/24 Elio Monae MD [address] [place] [address] Consulting Physician Pulmonary Disease 06/05/24 documented as of this encounter
--- OUTSIDE RECORDS SUMMARY | 2024-10-23 21:45 | XMS_ITS | Encounter Summary ---
Author Organization [facility] Address 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 Gender Identity Not on file Sexual Orientation Not on file documented as of this encounter Plan of Treatment Not on file documented as of this encounter Procedures Procedure Name Priority Date/Time Associated Diagnosis Comments CBC WITH DIFFERENTIAL Routine 01/25/2006 7:37 AM CDT CBC WITH DIFFERENTIAL Routine 01/25/2006 7:37 AM CDT TSH Routine 01/25/2006 7:37 AM CDT LIPID PANEL Routine 01/25/2006 7:37 AM CDT COMPREHENSIVE METABOLIC PANEL Routine 01/25/2006 7:37 AM CDT documented in this encounter Results * (ABNORMAL) CBC WITH DIFFERENTIAL (01/25/2006 7:37 AM CDT) NEUTROPHILS 33(L) 45 - 70 % INTERFAC E SYSTEM LYMPHOCYTES 50(H) 16 - 45 % INTERFAC E SYSTEM MONOCYTES 12 3 - 13 % INTERFACE SYSTEM EOSINOPHILS 5 0 - 7 % INTERFAC E SYSTEM BASOPHILS 0 0 - 2 % INTERFACE SYSTEM NEUTROPHIL ABSOLUTE 1.64(L) 1.90 - 7.00 K/uL INTERFACE SYSTEM LYMPHOCYTE ABSOLUTE 2.50 0.70 - 4.50 K/uL INTERFACE SYSTEM MONOCYTE ABSOLUTE 0.59 0.10 - 1.30 K/uL INTERFACE SYSTEM EOSINOPHIL ABSOLUTE 0.23 0.00 - 0.70 K/uL INTERFACE SYSTEM BASOPHILS ABSOLUTE 0.02 0.00 - 0.20 K/uL INTERFACE SYSTEM 01/25/2006 7:37 AM CDT Jason Lenz MD HEMATOLOGY ORDERABLES Final R esult Performing Organization Address [facility] Phone Number INTERFACE SYSTEM Refer to clinic/hospital department * CBC WITH DIFFERENTIAL (01/25/2006 7:37 AM CDT) WBC 5.0 4.0 - 9.8 K/uL INTERFACE SYSTEM RBC 4.42 3.90 - 4.90 M/uL INTERFACE SYSTEM HEMOGLOBIN 13.8 11.8 - 14.8 g/dL INTERFACE SYSTEM HEMATOCRIT 40.9 35.5 - 44.0 % INTERFACE SYSTEM MCV 92.5 82.0 - 99.0 fL INTERFACE SYSTEM MCH 31.2 27.2 - 32.6 pg INTERFACE SYSTEM MCHC 33.7 31.5 - 35.5 % INTERFACE SYSTEM RDW 12.8 11.5 - 14.5 % INTERFACE SYSTEM RDW-STDEV 43.0 37.1 - 48.7 fL INTERFACE SYSTEM PLATELETS 239 140 - 350 K/uL INTERFACE SYSTEM MPV 10.6 9.3 - 12.4 fL INTERFACE SYSTEM 01/25/2006 7:37 AM CDT Jason Lenz MD HEMATOLOGY ORDERABLES Final R esult Performing Organization Address [facility] de Phone Number INTERFACE SYSTEM Refer to clinic/hospital department * TSH (01/25/2006 7:37 AM CDT) TSH 1.77 0.27 - 4.20 uU/mL INTERFACE SYSTEM 01/25/2006 7:37 AM CDT Jason Lenz MD CHEMISTRY ORDERABLES Final Re sult Performing Organization Address City/[facility] Co de Phone Number INTERFACE SYSTEM Refer to clinic/hospital department * (ABNORMAL) LIPID PANEL (01/25/2006 7:37 AM CDT) CHOLESTEROL 190 100 - 199 mg/dL INTERFACE SYSTEM TRIGLYCERIDE 72 10 - 149 mg/dL INTERFACE SYSTEM HDL 81(H) 40 - 59 mg/dL INTERFACE SYSTEM CHOL/HDL RATIO 2.3 2.0 - 5.0 INTER FACE SYSTEM Comment:See interpretive emily a section for risk classifications. LDL CALCULATED 95 <=99 mg/dL INTERFACE SYSTEM LIPID PANEL COMMENT See Below INTERFACE SYSTEM Comment: Adult ATP III Classifications: Cholesterol (mg/dL) Triglyceride (mg/dL) Desirable <200 Normal <150 Borderline 200 - 239 Borderline High 150 - 199 High >=240 High 200 - 499 Very High >=500 HDL Cholesterol (mg/dL) LDL (mg/dL) Low (increased risk) <40 Optimal <100 High (reduced risk) >=60 Near or above optimal 100 - 129 Borderline 130 - 159 High 160 - 189 Very High >=190 LDL calculation is not accurate if Triglycerides are greater than 400 mg /dL Pediatric NCEP Classifications: Cholesterol(<20 years),(mg/dL) Triglyceride Desirable <170 Pediatric classification Borderline 170 - 199 not defined. High >=200 HDL (<5 years) LDL (mg/dL) No Reference Range Established Desirable <110 Borderline 110 - 129 High >=130 01/25/2006 7:37 AM CDT Jason Lenz MD CHEMISTRY ORDERABLES Final Re sult Performing Organization Address City/[facility]/ZIP Co de Phone Number INTERFACE SYSTEM Refer to clinic/hospital department * COMPREHENSIVE METABOLIC PANEL (01/25/2006 7:37 AM CDT) GLUCOSE 86 65 - 109 mg/dL INTERFACE SYSTEM CREATININE 0.8 0.4 - 1.2 mg/dL INTERFACE SYSTEM CALCIUM 8.9 8.6 - 10.2 mg/dL INTERFACE SYSTEM AST 31 12 - 32 U/L INTERFACE SYSTEM ALKALINE PHOSPHATASE 51 35 - 104 U/L INTERFACE SYSTEM ALT 25 0 - 31 U/L INTERFACE SYSTEM BILIRUBIN TOTAL 0.2 0.2 - 1.0 mg/dL INTERFACE SYSTEM ALBUMIN 4.4 3.4 - 4.8 g/dL INTERFACE SYSTEM TOTAL PROTEIN 6.9 6.3 - 8.6 g/dL INTERFACE SYSTEM BUN 15 6 - 20 mg/dL INTERFACE SYSTEM SODIUM 139 135 - 145 mmol/L INTERFACE SYSTEM POTASSIUM 3.8 3.5 - 4.9 mmol/L INTERFACE SYSTEM CHLORIDE 104 96 - 108 mmol/L INTERFACE SYSTEM CO2 26 22 - 30 mmol/L INTERFACE SYSTEM 01/25/2006 7:37 AM CDT us Jason Lenz MD CHEMISTRY ORDERABLES Final Re sult INTERFACE SYSTEM Refer to clinic/hospital department documented in this encounter Visit Diagnoses Diagnosis Abdominal pain, unspecified site- Primary documented in this encounter Care Teams Traffic Control Specialist Relationship Specialty Start Date End Date Kylie Reynolds MD NO ADDRESS ON FILE PCP - General 01/23/01 02/25/16 documented as of this encounter
--- OUTSIDE RECORDS SUMMARY | 2024-10-23 21:45 | XMS_ITS | Encounter Summary ---
Author Organization [facility] Address 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
--- OUTSIDE RECORDS SUMMARY | 2024-10-23 21:45 | XMS_ITS | Encounter Summary ---
Author Organization [facility] Address [address] [facility] [place] [address] Phone Care Team Providers Care Turning Sander Operator Name Role Phone Ramin Angeles DO Unavailable [phone] Jeniffer Burciaga MD Primary Care Provider [phone] Lizz Mccauley RN Unavailable Unavailable Lincoln Simpson DPM Unavailable Unavailable Provider, None Primary Care Provider Unavailabl e Martín Cuenca MD Primary Care Provider [phone] Bairon Ryan MD Unavailable [phone] Larisa Eisenberg EXECUTIVE DIRECTOR OF MARKETING, AVIATION ELECTRICIAN Unavailable + [phone] Cynthia Woody EXECUTIVE DIRECTOR OF MARKETING, AVIATION ELECTRICIAN Primary Care Provider + Elio Monae MD Unavailable Gorge Morel MD Primary Care Provider + [phone] Encounter Details Date Type Department Care Team (Late st Contact Info) Description 11/29/2021 Lab [facility] [address] [place] [address] [place] [address] [facility] [address] [place] [address] senior care (current) use of antibiotics; Staphylococcal arthritis, right elbow (HCC); Essential (primary) hypertension Social History Tobacco Use Types Packs/Day Years [...] have Coronavirus / COVID-19? No / Unsure 11/29/2021 7:02 PM CDT documented as of this encounter Plan of Treatment Upcoming Encounters Date Type Department Care Team (Late st Contact Info) Description 11/05/2024 1:30 PM NURSING HOME DIRECTOR Appointment [facility] [address] [place] [id number] Ovi Trinidad, EXECUTIVE DIRECTOR OF MARKETING, AVIATION ELECTRICIAN [address] [place] [address] Discharge Disposition: Discharged to home or Selfcare 11/13/2024 8:00 AM NURSING HOME DIRECTOR Procedure Visit [facility] [address] [place] [address] Davion Alicea MD [address] [facility] [address] [place] [address] 12/18/2024 10:30 AM CDT Office Visit [facility] [address] [place] [address] Cynthia Woody, EXECUTIVE DIRECTOR OF MARKETING, AVIATION ELECTRICIAN [address] [place] [address] 03/10/2025 1:00 PM CDT [facility] [address] [place] [address] Gilmar Bond MD [address] [place] [address] Discharge Disposition: Discharged to home or Selfcare documented as of this encounter Procedures Procedure Name Priority Date/Time Associated Diagnosis Comments CBC WITH AUTO DIFFERENTIAL Routine 11/29/2021 10:40 AM CDT senior care (current) use of antibiotics Staphylococcal arthritis, right elbow (HCC) Essential (primary) hypertension VANCOMYCIN TROUGH Routine 11/29/2021 10: 40 AM CDT salvage determiner (current) use of antibiotics Staphylococcal arthritis, right elbow (HCC) Essential (primary) hypertension CMP (COMPREHENSIVE METABOLIC PANEL) Routine 11/29/2021 10:40 AM CDT senior care (current) use of antibiotics Staphylococcal arthritis, right elbow (HCC) Essential (primary) hypertension COMPLETE BLOOD COUNT (CBC) WITH DIFF Routine 11/29/2021 10:40 AM CDT senior care (current) use of antibiotics Staphylococcal arthritis, right elbow (HCC) Essential (primary) hypertension documented in this encounter Results * (ABNORMAL) CBC WITH AUTO DIFFERENTIAL (11/29/2021 10:40 AM CDT) WBC 4.67 4.00 - 12.00 10(3)/mcL 11/29/2021 4:56 PM CDT [facility] RBC 3.75(L) 3.80 - 5.30 10(6)/[facility] 11/29/2021 4:56 PM CDT [facility] HEMOGLOBIN (HGB) 10.4(L) 12.0 - 15.8 g/dL 11/29/2021 4:56 PM CDT [facility] HEMATOCRIT (HCT) 34.0(L) 36.0 - 47.0 % 11/29/2021 4:56 PM CDT [facility] MCV 90.7 82.0 - 96.0 fL 11/29/2021 4:56 PM CDT [facility] MCH 27.7 26.0 - 34.0 pg 11/29/2021 4:56 PM CDT [facility] MCHC 30.6(L) 31.0 - 36.0 g/dL 11/29/2021 4:56 PM CDT [facility] PLATELET COUNT 366 140 - 440 10(3)/[facility] 11/29/2021 4:56 PM CDT [facility] RDW 22.5(H) 11.8 - 15.5 % 11/29/2021 4:56 PM CDT [facility] MPV 9.7 9.7 - 12.4 fL 11/29/2021 4:56 PM CDT [facility] NEUTROPHILS 53.6 47.0 - 73.0 % 11/29/2021 4:56 PM CDT [facility] LYMPHOCYTES 28.9 18.0 - 42.0 % 11/29/2021 4:56 PM CDT [facility] MONOCYTES 14.1(H) 4.0 - 12.0 % 11/29/2021 4:56 PM CDT [facility] EOSINOPHILS 2.8 0.0 - 5.0 % 11/29/2021 4:56 PM CDT [facility] BASOPHILS 0.6 0.0 - 1.0 % 11/29/2021 4:56 PM CDT [facility] ABSOLUTE NEUTROPHILS 2.50 1.60 - 7.70 10(3)/mcL 11/29/2021 4:56 PM CDT [facility] ABSOLUTE LYMPHOCYTES 1.35 1.30 - 3.20 10(3)/mcL 11/29/2021 4:56 PM CDT [facility] ABSOLUTE MONOCYTES 0.66 0.20 - 1.00 10(3)/[facility] 11/29/2021 4:56 PM CDT [facility] ABSOLUTE EOSINOPHIL 0.13 0.00 - 0.40 10(3)/[facility] 11/29/2021 4:56 PM CDT [facility] ABSOLUTE BASOPHILS 0.03 0.00 - 0.10 10(3)/[facility] 11/29/2021 4:56 PM CDT [facility] NRBC PER 100 WBC 0 11/30/19 4:56 PM CDT [facility] RESULTS ARE CONSISTENT WITH PERIPHERAL SMEAR REVIEW Yes 11/29/2021 4:56 PM CDT [facility] Blood No Phlebotomy Charged / Unknown 11/29/2021 10:40 AM CDT 11/29/2021 3:55 PM CDT Anya Mccrary MD HEMATOLOGY ORDERABLES Fi nal Result Performing Organization Address City/[facility]/ZIP Co de Phone Number [facility] [address] [place] [address] * (ABNORMAL) VANCOMYCIN TROUGH (11/29/2021 10:40 AM CDT) VANCOMYCIN, TROUGH 16(H) 5 - 10 mcg/mL 11/29/2021 4:29 PM CDT [facility] Blood No Phlebotomy Charged / Unknown 11/29/2021 10:40 AM CDT 11/29/2021 3:55 PM CDT Anya Mccrary MD CHEMISTRY ORDERABLES Fin al Result [facility] [address] [place] [address] * (ABNORMAL) CMP (COMPREHENSIVE METABOLIC PANEL) (11/29/2021 10:40 AM CDT) SODIUM 131(L) 136 - 144 mmol/L 11/29/2021 4:29 PM CDT [facility] POTASSIUM 4.2 3.5 - 5.1 mmol/L 11/29/2021 4:29 PM CDT [facility] CHLORIDE 96(L) 100 - 110 mmol/L 11/29/2021 4:29 PM CDT [facility] CO2, VENOUS 24 22 - 32 mmol/L 11/29/2021 4:29 PM CDT [facility] ANION GAP 15.2 8.0 - 20.0 mmol/L 11/29/2021 4:29 PM CDT [facility] GLUCOSE 74 70 - 99 mg/dL 11/29/2021 4:29 PM CDT [facility] BUN 14 8 - 23 mg/dL 11/29/2021 4:29 PM CDT [facility] CREATININE, BLOOD 0.63 0.60 - 1.10 mg/dL 11/29/2021 4:29 PM CDT [facility] BUN/CREATININE RATIO 22(H) 12 - 20 ratio 11/29/2021 4:29 PM CDT [facility] TOTAL PROTEIN 7.1 6.0 - 8.3 g/dL 11/29/2021 4:29 PM CDT [facility] ALBUMIN 4.4 3.5 - 5.2 g/dL 11/29/2021 4:29 PM CDT [facility] Comment: The colormetric methods used for the determination of Albumin may lead to falsely elevated test results in patients suffering from renal failure or insufficiency due to interference with other proteins. A/G RATIO 1.6 1.0 - 2.0 11/29/2021 4:29 PM CDT [facility] CALCIUM 9.2 8.9 - 10.3 mg/dL 11/29/2021 4:29 PM CDT [facility] T BILI <0.3 <=1.2 mg/dL 11/29/2021 4:29 PM CDT [facility] SGOT (AST) 45(H) <=32 U/L 11/29/2021 4:29 PM CDT [facility] SGPT (ALT) 47(H) <=41 U/L 11/29/2021 4:29 PM CDT [facility] ALKALINE PHOSPHATASE 127(H) 35 - 105 U/L 11/29/2021 4:29 PM CDT [facility] GFR, EST. NONAFRICAN >60 >=60 11/29/2021 4:29 PM CDT [facility] GFR, EST. >60 >=60 022 4:29 PM CDT [facility] Comment: Creatinine Clearance is the preferred criteria for selecting drug dose adjustments in renally impaired patients. The GFR is provided as additional pertinent clinical information. GFR is reported in mL/min/1.73 sq m. Blood No Phlebotomy Charged / Unknown 11/29/2021 10:40 AM CDT 11/29/2021 3:55 PM CDT Anya Mccrary MD CHEMISTRY ORDERABLES Fin al Result [facility] [address] [place] [address] documented in this encounter Visit Diagnoses Diagnosis senior care (current) use of antibiotics Staphylococcal arthritis, right elbow (HCC) Essential (primary) hypertension Unspecified essential hypertension documented in this encounter Additional Health Concerns Assessment Noted Time PHQ-9 Depression Total Score: 0 04/12/20 18 2:00 PM CDT documented as of this encounter Care Teams Turning Sander Operator Relationship Specialty Start Date End Date Jeniffer Burciaga MD [address] [place] [address] PCP - General Family Medicine 02/10/16 09/06/23 Provider, None [place] PCP - General 09/07/23 10/05/23 Martín Cuenca MD [address] [place] [address] PCP - General Family Medicine 10/06/23 02/05/24 Cynthia Woody APRN, AVIATION ELECTRICIAN [address] [place] [address] PCP - General Advanced Practice Nurse 02/07/24 [place] [address] PCP - General Infectious Disease 10/15/24 Ramin Angeles DO Consulting Physician Gastroenterology 01/14/16 08/20/24 Lizz Mccauley, SRINATH [place] Pilot Plant Operator 12/15/21 08/07/22 Lincoln Simpson, DPM Podiatry 03/30/22 Bairon Ryan MD [address] [place] [address] Consulting Physician Neurology 09/07/23 Larisa Eisenberg APRN, AVIATION ELECTRICIAN [address] [facility] [address] Nurse Practitioner Advanced Practice Nurse 01/26/24 Elio Monae MD [address] [facility] [place] [address] Consulting Physician Pulmonary Disease 06/05/24 documented as of this encounter
--- OUTSIDE RECORDS SUMMARY | 2024-10-23 21:45 | XMS_ITS | Encounter Summary ---
Author Organization [employer] Address [address] [place] [address] Care Team Providers Care Dry Starch Operator Name Role Phone Kylie Reynolds MD Primary Care Provider Brennan hagan Encounter Details Date Type Department Care Team (Latest Contact Info) Description 08/16/2005 Outpatient Historical [facility] Kylie Gorman MD NO ADDRESS ON FILE RESP SYS/CHEST SYMP NEC (Primary Dx) Social History Tobacco Use Types Packs/Day Years Used Date Smoking Tobacco: Never Assessed Comments Unknown Sex and Gender Information Value Date Recorded Sex Assigned at Not on file Legal Sex Female 5:26 AM SENIOR EXECUTIVE COMPENSATION ANALYST Gender Identity Not on file Sexual Orientation Not on file documented as of this encounter Plan of Treatment Not on file documented as of this encounter Visit Diagnoses Diagnosis Other symptoms involving respiratory system and chest- Primary documented in this encounter Care Teams Dry Starch Operator Relationship Specialty Start Date End Date Kylie Reynolds MD NO ADDRESS ON FILE PCP - General 01/23/01 02/25/16 documented as of this encounter
--- OUTSIDE RECORDS SUMMARY | 2024-10-23 21:45 | XMS_ITS | Encounter Summary ---
Author Organization [facility] Address [address] [place] [address] Care Team Providers Care Personal Fitness Manager Name Role Phone Kylie Reynolds MD Primary Care Provider Unavailab le Encounter Details Date Type Department Care Team (Late st Contact Info) Description 12/22/2004 Outpatient Historical [facility] Medicine [address] [place] [address] Kylie Reynolds MD NO ADDRESS ON FILE Social History Tobacco Use Types Packs/Day Years Used Date Smoking Tobacco: Never Assessed Comments Unknown Sex and Gender Information Value Date Recorded Sex Assigned at Not on file Legal Sex Female 5:26 AM CHIEF ANALYTICS OFFICER Gender Identity Not on file Sexual Orientation Not on file documented as of this encounter Plan of Treatment Not on file documented as of this encounter Visit Diagnoses Not on filedocumented in this encounter Care Teams Personal Fitness Manager Relationship Specialty Start Date End Date Kylie Reynolds MD NO ADDRESS ON FILE PCP - General 01/23/01 02/25/16 documented as of this encounter
--- OUTSIDE RECORDS SUMMARY | 2024-10-23 21:45 | XMS_ITS | Encounter Summary ---
Author Organization [employer] Address [address] [place] [address] Care Team Providers Care Inside Sales Engineer Name Role Phone Kylie Reynolds MD Primary Care Provider Brennan hagan Encounter Details Date Type Department Care Team (Latest Contact Info) Description 10/05/2004 Outpatient Historical [facility] Kylie Gorman MD NO ADDRESS ON FILE [facility]IC[facility] (Primary Dx) Social History Tobacco Use Types Packs/Day Years Used Date Smoking Tobacco: Never Assessed Comments Unknown Sex and Gender Information Value Date Recorded Sex Assigned at Not on file Legal Sex Female 5:26 AM BUTTON SPINDLER Gender Identity Not on file Sexual Orientation Not on file documented as of this encounter Plan of Treatment Not on file documented as of this encounter Procedures Procedure Name Priority Date/Time Associated Diagnosis Comments CBC WITH DIFFERENTIAL Routine 10/05/2004 3:49 PM BUTTON SPINDLER CBC WITH DIFFERENTIAL Routine 10/05/2004 3:49 PM BUTTON SPINDLER PTT Routine 10/05/2004 3:49 PM BUTTON SPINDLER PROTIME-INR Routine 10/05/2004 3:49 PM BUTTON SPINDLER HEPATIC FUNCTION PANEL Routine 10/05/2004 3:49 PM BUTTON SPINDLER LIPID PANEL Routine 10/05/2004 3:49 PM BUTTON SPINDLER documented in this encounter Results * CBC WITH DIFFERENTIAL (10/05/2004 3:49 PM BUTTON SPINDLER) NEUTROPHILS 53 45 - 70 % INTERFAC E SYSTEM LYMPHOCYTES 34 16 - 45 % INTERFAC E SYSTEM MONOCYTES 10 3 - 13 % INTERFACE SYSTEM EOSINOPHILS 2 0 - 7 % INTERFAC E SYSTEM BASOPHILS 0 0 - 2 % INTERFACE SYSTEM NEUTROPHIL ABSOLUTE 2.64 1.90 - 7.00 K/uL INTERFACE SYSTEM LYMPHOCYTE ABSOLUTE 1.71 0.70 - 4.50 K/uL INTERFACE SYSTEM MONOCYTE ABSOLUTE 0.49 0.10 - 1.30 K/uL INTERFACE SYSTEM EOSINOPHIL ABSOLUTE 0.12 0.00 - 0.70 K/uL INTERFACE SYSTEM BASOPHILS ABSOLUTE 0.02 0.00 - 0.20 K/uL INTERFACE SYSTEM 10/05/2004 3:49 PM BUTTON SPINDLER Kylie Reynolds MD HEMATOLOGY ORDERABLES Final Resu lt Performing Organization Address City/[facility] de Phone Number INTERFACE SYSTEM Refer to clinic/hospital department * CBC WITH DIFFERENTIAL (10/05/2004 3:49 PM BUTTON SPINDLER) WBC 5.0 4.0 - 9.8 K/uL INTERFACE SYSTEM RBC 4.26 3.90 - 4.90 M/uL INTERFACE SYSTEM HEMOGLOBIN 13.5 11.8 - 14.8 g/dL INTERFACE SYSTEM HEMATOCRIT 40.4 35.5 - 44.0 % INTERFACE SYSTEM MCV 94.8 82.0 - 99.0 fL INTERFACE SYSTEM MCH 31.7 27.2 - 32.6 pg INTERFACE SYSTEM MCHC 33.4 31.5 - 35.5 % INTERFACE SYSTEM RDW 12.6 11.5 - 14.5 % INTERFACE SYSTEM RDW-STDEV 43.2 37.1 - 48.7 fL INTERFACE SYSTEM PLATELETS 236 140 - 350 K/uL INTERFACE SYSTEM MPV 10.9 9.3 - 12.4 fL INTERFACE SYSTEM 10/05/2004 3:49 PM BUTTON SPINDLER Kylie Reynolds MD HEMATOLOGY ORDERABLES Final Resu lt Performing Organization Address [facility] de Phone Number INTERFACE SYSTEM Refer to clinic/hospital department * PTT (10/05/2004 3:49 PM BUTTON SPINDLER) PTT 32.2 25.0 - 35.0 Seconds INTERFACE SYSTEM Comment: PTT Therapeutic Range: Heparin Level PTT (seconds) <0.10 units/mL <45 0.10 - 0.30 units/mL 45 - 65 0.30 - 0.70 units/mL* 65 - 106* 0.70 - 1.00 units/mL 106 - 137 *corresponds to therapeutic range for unfractionated heparin 10/05/2004 3:49 PM BUTTON SPINDLER Kylie Reynolds MD HEMATOLOGY ORDERABLES Final Resu lt Performing Organization Address [facility] Phone Number INTERFACE SYSTEM Refer to clinic/hospital department * PROTIME-INR (10/05/2004 3:49 PM BUTTON SPINDLER) PROTIME 14.2 12.9 - 15.7 Seconds INTERFACE SYSTEM INR 1.0 0.9 - 1.1 INTERFACE SYSTEM Comment: INR Therapeutic Range: Adult: 2.0 - 3.0 for pulmonary embolism or prophylaxis against venous thrombosis or systemic embolization. 2.0 - 3.0 for patients with tissue heart valves. 3.0 - 4.5 for patients with mechanical heart valves. Pediatric (12 years and under): 1.5 - 3.0 Although the target range in children is not well established, INR values of 1.5 - 3.0 are recommended for most patients. Higher values have been used in children with prosthetic cardiac valves and hereditary clotting disorders. (<3 days) therapeutic ranges have not been established. 10/05/2004 3:49 PM BUTTON SPINDLER Kylie Reynolds MD HEMATOLOGY ORDERABLES Final [facility] Per[facility] Organization Address [facility] Phone Number INTERFACE SYSTEM Refer to clinic/hospital department * (ABNORMAL) HEPATIC FUNCTION PANEL (10/05/2004 3:49 PM BUTTON SPINDLER) AST 40(H) 12 - 32 U/L INTERFACE SYSTEM ALKALINE PHOSPHATASE 53 35 - 104 U/L INTERFACE SYSTEM BILIRUBIN TOTAL 0.2 0.2 - 1.0 mg/dL INTERFACE SYSTEM ALBUMIN 4.4 3.4 - 4.8 g/dL INTERFACE SYSTEM TOTAL PROTEIN 6.9 6.3 - 8.6 g/dL INTERFACE SYSTEM ALT 40(H) 0 - 31 U/L INTERFACE SYSTEM BILIRUBIN DIRECT 0.1 0.0 - 0.3 mg/dL INTERFACE SYSTEM 10/05/2004 3:49 PM BUTTON SPINDLER Kylie Reynolds MD CHEMISTRY ORDERABLES Final Resul t Performing Organization Address [facility] de Phone Number INTERFACE SYSTEM Refer to clinic/hospital department * (ABNORMAL) LIPID PANEL (10/05/2004 3:49 PM BUTTON SPINDLER) CHOLESTEROL 185 100 - 199 mg/dL INTERFACE SYSTEM TRIGLYCERIDE 217(H) 10 - 149 mg/dL INTERFACE SYSTEM HDL 66(H) 40 - 59 mg/dL INTERFACE SYSTEM LDL CALCULATED 76 <=99 mg/dL INTERFACE SYSTEM CHOL/HDL RATIO 2.8 2.0 - 5.0 INTER FACE SYSTEM Comment:See interpretive emily a section for risk classifications. LIPID PANEL COMMENT See below INTERFACE SYSTEM Comment: Adult ATP III Classifications: [...] <110 Borderline 110 - 129 High >=130 10/05/2004 3:49 PM BUTTON SPINDLER Kylie Reynolds MD CHEMISTRY ORDERABLES Final Resul t Performing Organization Address [facility] Co de Phone Number INTERFACE SYSTEM Refer to clinic/hospital department documented in this encounter Visit Diagnoses Diagnosis Encounter for long-term (current) use of other medications- Primary documented in this encounter Care Teams Inside Sales Engineer Relationship Specialty Start Date End Date Kylie Reynolds MD NO ADDRESS ON FILE PCP - General 01/23/01 02/25/16 documented as of this encounter
--- OUTSIDE RECORDS SUMMARY | 2024-10-23 21:45 | XMS_ITS | Encounter Summary ---
Author Organization [facility] Address 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 MACHINE 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 Gender Identity Not on file Sexual Orientation Not on file documented as of this encounter Last Filed Vital Signs Vital Sign Reading Time Taken Comments Blood Pressure 119/76 07/21/2005 2:30 PM ARCH CUSHION SKIVING MACHINE OPERATOR Pulse 75 07/21/2005 2:30 PM ARCH CUSHION SKIVING MACHINE OPERATOR Temperature 36.2 C (97.2 F) 07/21/2005 2:30 PM ARCH CUSHION SKIVING MACHINE OPERATOR Respiratory Rate - - Oxygen Saturation - - Inhaled Oxygen Concentration - - Weight 64 kg (141 lb) 07/21/2005 2:30 PM ARCH CUSHION SKIVING MACHINE OPERATOR Height - - Body Mass Index - - documented in this encounter Plan of Treatment Not on file documented as of this encounter Visit Diagnoses Not on filedocumented in this encounter Care Teams Nuclear Instructor Relationship Specialty Start Date End Date Kylie Reynolds MD NO ADDRESS ON FILE PCP - General 01/23/01 02/25/16 documented as of this encounter
--- OUTSIDE RECORDS SUMMARY | 2024-10-23 21:45 | XMS_ITS | Encounter Summary ---
Author Organization [facility] Address [address] [place] [address] Care Team Providers Care Chronic Disease Manager Name Role Phone Kylei Reynolds MD Primary Care Provider Unavailab le Encounter Details Date Type Department Care Team (Late st Contact Info) Description 07/01/[address] [facility] Medicine [address] [place] [address] Kylie Reynolds MD NO ADDRESS ON FILE Social History Tobacco Use Types Packs/Day Years Used Date Smoking Tobacco: Never Assessed Comments Unknown Sex and Gender Information Value Date Recorded Sex Assigned at Not on file Legal Sex Female 5:26 AM CODING EDUCATOR Gender Identity Not on file Sexual Orientation Not on file documented as of this encounter Plan of Treatment Not on file documented as of this encounter Visit Diagnoses Not on filedocumented in this encounter Care Teams Chronic Disease Manager Relationship Specialty Start Date End Date Kylie Reynolds MD NO ADDRESS ON FILE PCP - General 01/23/01 02/25/16 documented as of this encounter
--- OUTSIDE RECORDS SUMMARY | 2024-10-23 21:45 | XMS_ITS | Encounter Summary ---
Author Organization [employer] Address [address] [place] [address] Care Team Providers Care Hyster Machine Operator Name Role Phone Kylie Reynolds MD Primary Care Provider Unavailab le Encounter Details Date Type Department Care Team (Late st Contact Info) Description 03/24/2006 Outpatient Historical [facility] Ronnie Laen MD NO ADDRESS ON FILE Dyspepsia and Other Specified Disorders of Function of Stomach (Primary Dx) Social History Tobacco Use Types Packs/Day Years Used Date Smoking Tobacco: Never Assessed Comments Unknown Sex and Gender Information Value Date Recorded Sex Assigned at Not on file Legal Sex Female 5:26 AM BRAKES INSPECTOR Gender Identity Not on file Sexual Orientation Not on file documented as of this encounter Plan of Treatment Not on file documented as of this encounter Visit Diagnoses Diagnosis Dyspepsia and other specified disorders of function of stomach- Primary documented in this encounter Care Teams Hyster Machine Operator Relationship Specialty Start Date End Date Kylie Reynolds MD NO ADDRESS ON FILE PCP - General 01/23/01 02/25/16 documented as of this encounter
--- OUTSIDE RECORDS SUMMARY | 2024-10-23 21:45 | XMS_ITS | Encounter Summary ---
Author Organization [employer] Address [address] [place] [address] Care Team Providers Care Banquet Director Name Role Phone Kylie Reynolds MD Primary Care Provider Brennan hagan Encounter Details Date Type Department Care Team (Latest Contact Info) Description 01/21/2008 Outpatient [facility] [address] [place] [phone] Bib Solis MD [address] [place] [address] [address] [place] [address] Bipolar I Disorder, Single Manic Episode, Unspecified (CMS/[facility]) Social History Tobacco Use Types Packs/Day Years Used Date Smoking Tobacco: Never Assessed Comments Unknown Sex and Gender Information Value Date Recorded Sex Assigned at Not on file Legal Sex Female 5:26 AM PERSONAL INJURY SPECIALIST Gender Identity Not on file Sexual Orientation Not on file documented as of this encounter Plan of Treatment Not on file documented as of this encounter Procedures Procedure Name Priority Date/Time Associated Diagnosis Comments CBC WITH DIFFERENTIAL Routine 01/21/2008 1:09 PM CDT TSH Routine 01/21/2008 1:09 PM CDT CARBAMAZEPINE LEVEL Routine 01/21/2008 1 :09 PM CDT COMPREHENSIVE METABOLIC PANEL Routine 01/21/2008 1:09 PM CDT documented in this encounter Results * CARBAMAZEPINE LEVEL (01/21/2008 1:09 PM CDT) CARBAMAZEPINE LEVEL 5.4 4.0 - 12.0 ug/mL [facility] Comment:Carbamazepine Toxic Level => 20 ug/mL Blood specimen (specimen) 01/21/2008 1:09 PM CDT 01/21/2008 3:29 PM CDT us Bib Solis MD CHEMISTRY ORDERABLES Final Resul t [facility] [address] [place] [address] * (ABNORMAL) COMPREHENSIVE METABOLIC PANEL (01/21/2008 1:09 PM CDT) CALCIUM 9.4 8.4 - 10.2 mg/dL [facility] CHLORIDE 103 96 - 108 mmol/L [facility] ALBUMIN 4.7 3.4 - 4.8 g/dL [facility] CREATININE 0.65 0.51 - 0.95 mg/dL [facility] SODIUM 140 135 - 145 mmol/L [facility] ALT 27 0 - 31 U/L [facility] ALKALINE PHOSPHATASE 65 35 - 104 U/L [facility] BILIRUBIN TOTAL 0.2 0.2 - 1.0 mg/dL [facility] CO2 28 22 - 30 mmol/L [facility] TOTAL PROTEIN 7.5 6.3 - 8.6 g/dL [facility] POTASSIUM 4.7 3.5 - 4.9 mmol/L [facility] GLUCOSE 81 65 - 99 mg/dL [facility] AST 33(H) 12 - 32 U/L [facility] BUN 20 6 - 20 mg/dL [facility] GFR, >60 >=60 mL/min/1.7 sq meter [facility] GFR >60 >=60 mL/min/1.7 sq meter [facility] Comment: Estimated GFR rate interpretative information for both Americans and non- Americans is available on the [facility] Intranet at: [email or web address] Select: Lab Policies and Procedures Select: Reference Ranges - GFR Blood specimen (specimen) 01/21/2008 1:09 PM CDT 01/21/2008 3:29 PM CDT Bib Solis MD CHEMISTRY ORDERABLES Edited [facility] [address] [place] [address] * (ABNORMAL) CBC WITH DIFFERENTIAL (01/21/2008 1:09 PM CDT) HEMATOCRIT 43.7 35.5 - 44.0 % [facility] RDW-STDEV 42.5 37.1 - 48.7 fL [facility] RBC 4.70 3.90 - 4.90 M/uL [facility] MCHC 32.3 31.5 - 35.5 % [facility] MCV 93.0 82.0 - 99.0 fL [facility] PLATELETS 271 140 - 350 K/uL [facility] HEMOGLOBIN 14.1 11.8 - 14.8 g/dL [facility] RDW 12.7 11.5 - 14.5 % [facility] WBC 4.0 4.0 - 9.8 K/uL [facility] MCH 30.0 27.2 - 32.6 pg [facility] MPV 11.2 9.3 - 12.4 fL [facility] BASOPHILS 1 0 - 2 % [facility] BASOPHILS ABSOLUTE 0.03 0.00 - 0.20 K/uL [facility] MONOCYTES 12 3 - 13 % [facility] MONOCYTE ABSOLUTE 0.48 0.10 - 1.30 K/uL [facility] NEUTROPHILS 44(L) 45 - 70 % [facility] NEUTROPHIL ABSOLUTE 1.75(L) 1.90 - 7.00 K/uL [facility] EOSINOPHILS 4 0 - 7 % [facility] EOSINOPHIL ABSOLUTE 0.14 0.00 - 0.70 K/uL [facility] LYMPHOCYTES 40 16 - 45 % [facility] LYMPHOCYTE ABSOLUTE 1.57 0.70 - 4.50 K/uL [facility] Blood specimen (specimen) 01/21/2008 1:09 PM CDT 01/21/2008 3:29 PM CDT Bib Solis MD HEMATOLOGY ORDERABLES Edited [facility] [address] [place] [address] * TSH (01/21/2008 1:09 PM CDT) TSH 0.90 0.27 - 4.20 uU/mL [facility] Blood specimen (specimen) 01/21/2008 1:09 PM CDT 01/21/2008 3:29 PM CDT Bib Solis MD CHEMISTRY ORDERABLES Final Resul t Performing Organization Address [facility]/State/ZIP Co de Phone Number [facility] [address] [place] [address] documented in this encounter Visit Diagnoses Diagnosis Bipolar I disorder, single manic episode, unspecified (CMS/HCC) Bipolar I disorder, single manic episode, unspecified documented in this encounter Care Teams Banquet Director Relationship Specialty Start Date End Date Kylie Reynolds MD NO ADDRESS ON FILE PCP - General 01/23/01 02/25/16 documented as of this encounter
--- OUTSIDE RECORDS SUMMARY | 2024-10-23 21:45 | XMS_ITS | Encounter Summary ---
Author Organization [facility] Address [address] [facility] [place] [address] Phone Care Team Providers Care Supervisor Brine Name Role Phone Ramin Angeles DO Unavailable [phone] Jeniffer Burciaga MD Primary Care Provider [phone] Lizz Mccauley RN Unavailable Unavailable Lincoln Simpson DPM Unavailable Unavailable Provider, None Primary Care Provider Unavailabl e Martín Cuenca MD Primary Care Provider [phone] Bairon Ryan MD Unavailable [phone] Larisa Eisenberg RADIO BOARD OPERATOR, INTERACTIVE PRODUCER Unavailable + [phone] Cynthia Woody RADIO BOARD OPERATOR, INTERACTIVE PRODUCER Primary Care Provider + Elio Monae MD Unavailable Gorge Morel MD Primary Care Provider [phone]- [phone] Reason for Referral * Consult, Test & Initiate Treatment (Routine) - Closed Specialty Diagnoses / Procedures Referred By Jimenez wilkinson Referred To Contact Diagnoses Elbow pain, unspecified laterality Jeniffer Burciaga MD [address] [place] [address] Phone: tel: fax: Luis Daniel Beverly MD Phone: tel: fax: Referral ID Status Reason Start Date Expiration Date Visits Re quested Visits Authorized [id number] Closed 07/20/2022 1 1 Scheduling Instructions Rina is being referred to [facility] Ortho/Dr Beverly or other specialist in patient's insurance network for right elbow fx follow up See below for Rina's current medications, allergies and problem list. CURRENT MEDS: Current Outpatient Medications: Acetaminophen (TYLENOL ARTHRITIS PAIN PO), Take 650 mg by mouth 2 times daily., Disp: , Rfl: amLODIPine (NORVASC) 5 MG Tablet, TAKE 2 TABLETS BY MOUTH DAILY, Disp: 200 Tablet, Rfl: 2 amphetamine-dextroamphetamine (ADDERALL) 30 MG Tablet, Take 30 mg by mouth 2 times daily., Disp: , Rfl: ARIPiprazole (ABILIFY) 5 MG Tablet, Take 5 mg by mouth daily., Disp: , Rfl: atorvastatin (LIPITOR) 40 MG Tablet, TAKE 1 TABLET BY MOUTH DAILY, Disp: 90 Tablet, Rfl: 2 calcium carbonate-vitamin D 600-400 MG-UNIT Tablet, Calcium 600 + D(3) 600 mg (1,500 mg)-400 unit tablet Take 1 tablet twice a day by oral route., Disp: , Rfl: FLUoxetine (PROzac) 10 MG Capsule, Take 10 mg by mouth daily. Take 5 tablets po for a total of 50 mg daily, Disp: , Rfl: Ivermectin (Soolantra) 1 % Cream, Apply to face daily in am (Patient not taking: No sig reported), Disp: 3 g, Rfl: 1 lamoTRIgine (LaMICtal) 200 MG Tablet, , Disp: , Rfl: LAMOTRIGINE PO, Take 300 mg by mouth daily., Disp: , Rfl: lisinopril (PRINIVIL, ZESTRIL) 40 MG Tablet, Take 1 Tablet by mouth daily., Disp: 90 Tablet, Rfl: 3 Methylcobalamin (MM Vitamin B12) 5000 MCG SL Tablet, Take 5,000 mcg by mouth daily., Disp: , Rfl: metroNIDAZOLE (METROCREAM) 0.75 % Cream, APPLY DAILY TO FACE FOR ROSACEA, Disp: , Rfl: modafinil (PROVIGIL) 200 MG Tablet, Take 200 mg by mouth daily., Disp: , Rfl: Multiple Vitamin (MULTI-VITAMIN PO), Take 1 Tablet by mouth daily., Disp: , Rfl: oxyCODONE (ROXICODONE) 5 MG Tablet, TAKE 1 TABLET BY MOUTH EVERY 4 HOURS NEEDED FOR PAIN (Patient not taking: No sig reported), Disp: , Rfl: pantoprazole (PROTONIX) 20 MG Tablet Delayed Response, TAKE 1 TABLET BY MOUTH DAILY NEEDED FOR ACID REFLUX, Disp: 100 Tablet, Rfl: 2 No current facility-administered medications for this visit. 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 Pt seeing Dr Beverly for continuing care related to her fx elbow. Referral pended. * Telephone Encounter - Angela Hodgson RN - 07/20/2022 9:51 AM CDT Cynthia, event specialist food demonstrator is calling to speak directly to one of Jeniffer Burciaga MD nurses at the office regarding referral and authorization needed prior to 2 pm. Cynthia was warm transferred to SRINATH Shi at Jeniffer Burciaga MD office. * Telephone Encounter - Cynthia Acevedo - 07/20/2022 9:47 AM CDT I received a call from Prema at [facility]. Patient has an appointment today at [address] Luis Daniel Beverly for her right elbow. She needs a referral and authorization for this visit. Please place referral for patient. Thank you! documented in this encounter Plan of Treatment Upcoming Encounters Date Type Department Care Team (Late st Contact Info) Description 11/05/2024 1:30 PM DIGITAL ACCOUNT COORDINATOR Appointment [facility] [address] [place] [address] Ovi Trinidad, RADIO BOARD OPERATOR, INTERACTIVE PRODUCER [address] [place] [address] Discharge Disposition: Discharged to home or Selfcare 11/13/2024 8:00 AM DIGITAL ACCOUNT COORDINATOR Procedure Visit [facility] [address] [place] [address] Davion Alicea MD [address] [address] 12/18/2024 10:30 AM CDT Office Visit [facility] [address] [place] [address] Cynthia Woody, RADIO BOARD OPERATOR, INTERACTIVE PRODUCER [address] [place] [address] 03/10/2025 1:00 PM CDT [facility] [address] [place] [address] Gilmar Bond MD [address] [place] [address] Discharge Disposition: Discharged to home or Selfcare Scheduled Referrals Name Type Priority Associated Diagnoses Orde r Schedule EXTERNAL ORTHOPEDIC REFERRAL Outpatient Referral Routine Elbow pain, unspecified laterality Expected: 07/20/2022, Expires: 07/20/2023 documented as of this encounter Visit Diagnoses Diagnosis Elbow pain, unspecified laterality- Primary documented in this encounter Additional Health Concerns Assessment Noted Time PHQ-9 Depression Total Score: 0 04/12/20 18 2:00 PM CDT documented as of this encounter Care Teams Supervisor Brine Relationship Specialty Start Date End Date Jeniffer Burciaga MD [address] [place] [address] PCP - General Family Medicine 02/10/16 09/06/23 Provider, None [place] PCP - General 09/07/23 10/05/23 Martín Cuenca MD [address] [place] [address] PCP - General Family Medicine 10/06/23 02/05/24 Cynthia Woody, RADIO BOARD OPERATOR, INTERACTIVE PRODUCER [address] [place] [address] PCP - General Advanced Practice Nurse 02/07/24 Gorge Morel MD [place] [address] PCP - General Infectious Disease 10/15/24 Ramin Angeles DO Consulting Physician Gastroenterology 01/14/16 08/20/24 Lizz Mccauley, SRINATH [place] Certified Nurse Midwife 12/15/21 08/07/22 Lincoln Simpson DPM Podiatry 03/30/22 Bairon Ryan MD [address] [place] [address] Consulting Physician Neurology 09/07/23 Larisa Eisenberg APRN, INTERACTIVE PRODUCER [address] [facility] [address] [place] [address] Nurse Practitioner Advanced Practice Nurse 01/26/24 Elio Monae MD [address] [place] [address] Consulting Physician Pulmonary Disease 06/05/24 documented as of this encounter
--- OUTSIDE RECORDS SUMMARY | 2024-10-23 21:45 | XMS_ITS | Encounter Summary ---
Author Organization [facility] Address [address] [facility] [place] [address] Phone Care Team Providers Care Rock Breaker Name Role Phone Ramin Angeles DO Unavailable [phone] Jeniffer Burciaga MD Primary Care Provider [phone] Lizz Mccauley RN Unavailable Unavailable Lincoln Simpson DPM Unavailable Unavailable Provider, None Primary Care Provider Unavailabl e Martín Cuenca MD Primary Care Provider [phone] Bairon Ryan MD Unavailable [phone] Larisa Eisenberg STITCHING DEPARTMENT SUPERVISOR, SUPERINTENDENT CONSTRUCTION Unavailable + [phone] Cynthia Woody STITCHING DEPARTMENT SUPERVISOR, SUPERINTENDENT CONSTRUCTION Primary Care Provider + Elio Monae MD Unavailable Gorge Morel MD Primary Care Provider [phone] Reason for Visit * Reason Onset Date Comments Hypertension 12/02/2021 Encounter Details Date Type Department Care Team (Late st Contact Info) Description 12/02/2021 Nurse Triage [facility] [address] [place] [address] Jeniffer Burciaga MD [address] [place] [address] Hypertension Social History Tobacco Use Types Packs/Day Years [...] encounter Miscellaneous Notes * Telephone Encounter - Hugh Chadwick RN - 12/02/2021 3:55 PM CDT Patient returning call Informed and verbalizes understanding No further needs. * Telephone Encounter - Willa Reis RN - 12/02/2021 2:53 PM CDT Left message for patient to call office back * Telephone Encounter - Kylie Chawla PAC - 12/02/2021 1:01 PM CDT Can increase amlodipine to 10 mg daily * Telephone Encounter - Willa Reis RN - 12/02/2021 12:57 PM CDT Left message for patient to call office back. Called nurse to make sure she still wasn't in the home with the patient. * Telephone Encounter - Elizabeth Lopez RN - 12/02/2021 12:48 PM CDT Yuridia, [facility] visiting nurse calling with critical hypertension. Yuridia took patients blood pressure this morning twice and got readings of 176/115 and 168/110. Yuridia states patient was asymptomatic. Yuridia states patient confirmed that blood pressure has been running this high for the last couple days. Patient has not missed any doses of blood measure medication. Nurse reached out to outbound nurse and asked that she call seng to triage. documented in this encounter Plan of Treatment Upcoming Encounters Date Type Department Care Team (Late st Contact Info) Description 11/05/2024 1:30 PM CANDLE MOLDER [facility] [address] [place] [address] Ovi Trinidad APRN, SUPERINTENDENT CONSTRUCTION [address] [place] [address] Discharge Disposition: Discharged to home or Selfcare 11/13/2024 8:00 AM CANDLE MOLDER Procedure Visit [facility] [address] [place] [address] Davion Alicea MD [address] [address] 12/18/2024 10:30 AM CDT Office Visit [facility] [address] [place] [address] Cynthia Woody, STITCHING DEPARTMENT SUPERVISOR, SUPERINTENDENT CONSTRUCTION [address] [place] [address] 03/10/2025 1:00 PM CDT Office Visit [facility] [address] [place] [address] Gilmar Bond MD [address] [place] [address] Discharge Disposition: Discharged to home or Selfcare documented as of this encounter Visit Diagnoses Not on filedocumented in this encounter Additional Health Concerns Assessment Noted Time PHQ-9 Depression Total Score: 0 04/12/20 18 2:00 PM CDT documented as of this encounter Care Teams Rock Breaker Relationship Specialty Start Date End Date Jeniffer Burciaga MD [address] [place] [address] PCP - General Family Medicine 02/10/16 09/06/23 Provider, None [place] PCP - General 09/07/23 10/05/23 Martín Cuenca MD [address] [place] [address] PCP - General Family Medicine 10/06/23 02/05/24 Cynthia Woody STITCHING DEPARTMENT SUPERVISOR, SUPERINTENDENT CONSTRUCTION [address] [place] [address] PCP - General Advanced Practice Nurse 02/07/24 Gorge Morel MD [address] [place] [address] PCP - General Infectious Disease 10/15/24 Ramin Angeles DO Consulting Physician Gastroenterology 01/14/16 08/20/24 Lizz Mccauley RN [place] Salesperson Household Appliances 12/15/21 08/07/22 Lincoln Simpson DPM Podiatry 03/30/22 Bairon Ryan MD [address] [place] [address] Consulting Physician Neurology 09/07/23 Larisa Eisenberg APRN, SUPERINTENDENT CONSTRUCTION [address]2 [facility] [address] [place] [address] Nurse Practitioner Advanced Practice Nurse 01/26/24 Elio Monae MD [address] [place] [address] Consulting Physician Pulmonary Disease 06/05/24 documented as of this encounter
--- OUTSIDE RECORDS SUMMARY | 2024-10-23 21:45 | XMS_ITS | Encounter Summary ---
Author Organization [employer] Address 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 Gender Identity Not on file Sexual Orientation Not on file documented as of this encounter Plan of Treatment Not on file documented as of this encounter Procedures Procedure Name Priority Date/Time Associated Diagnosis Comments CBC WITH DIFFERENTIAL Stat 07/18/2008 10:12 AM CDT SEDIMENTATION RATE Routine 07/17/2008 5: 00 AM CDT RHEUMATOID FACTOR Routine 07/17/2008 5:0 0 AM CDT TABITHA SCREEN W/REFLEX Routine 07/17/2008 5 :00 AM CDT FOLATE RBC AND HEMATOCRIT Routine 07/17/2008 5:00 AM CDT VITAMIN B12 LEVEL Routine 07/17/2008 5:0 0 AM CDT LIPID PANEL Routine 07/17/2008 5:00 AM CDT BASIC METABOLIC PANEL Routine 07/17/2008 5:00 AM CDT URINALYSIS W/REFLEX MICROSCOPIC Routine 07/16/2008 7:23 PM CDT DRUG SCREEN, URINE Routine 07/16/2008 7: 19 PM CDT CBC WITH DIFFERENTIAL Routine 07/16/2008 8:00 AM CDT TSH Routine 07/16/2008 8:00 AM CDT CARBAMAZEPINE LEVEL Routine 07/16/2008 8 :00 AM CDT COMPREHENSIVE METABOLIC PANEL Routine 07/16/2008 8:00 AM CDT documented in this encounter Results * (ABNORMAL) CBC WITH DIFFERENTIAL (07/18/2008 10:12 AM CDT) MPV 11.2 9.3 - 12.4 fL [facility] MCV 93.3 82.0 - 99.0 fL [facility] RBC 4.51 3.90 - 4.90 M/uL [facility] HEMOGLOBIN 13.8 11.8 - 14.8 g/dL [facility] RDW-STDEV 43.9 37.1 - 48.7 fL [facility] MCH 30.6 27.2 - 32.6 pg [facility] RDW 12.9 11.5 - 14.5 % [facility] HEMATOCRIT 42.1 35.5 - 44.0 % [facility] MCHC 32.8 31.5 - 35.5 % [facility] PLATELETS 231 140 - 350 K/uL [facility] WBC 3.2(L) 4.0 - 9.8 K/uL [facility] BASOPHILS 1 0 - 2 % [facility] BASOPHILS ABSOLUTE 0.03 0.00 - 0.20 K/uL [facility] MONOCYTES 10 3 - 13 % [facility] MONOCYTE ABSOLUTE 0.32 0.10 - 1.30 K/uL [facility] NEUTROPHILS 40(L) 45 - 70 % [facility] NEUTROPHIL ABSOLUTE 1.29(L) 1.90 - 7.00 K/uL [facility] EOSINOPHILS 3 0 - 7 % [facility] EOSINOPHIL ABSOLUTE 0.11 0.00 - 0.70 K/uL [facility] LYMPHOCYTES 46(H) 16 - 45 % [facility] LYMPHOCYTE ABSOLUTE 1.46 0.70 - 4.50 K/uL [facility] Blood specimen (specimen) 07/18/2008 10:12 AM CDT 07/18/2008 10:51 AM CDT us Bib Solis MD HEMATOLOGY ORDERABLES Edited Performing Organization Address City/[facility] de Phone Number INTERFACE SYSTEM Refer to clinic/hospital department [facility] CLIA# [id number] [address] [place] [address] * TABITHA (07/17/2008 5:00 AM CDT) TABITHA SCREEN NEGATIVE NEGATIVE [facility] Comment: Lab test performed by: [employer] [address] [address] [place] [address] TRIXIE VICTOR MD Blood specimen (specimen) 07/17/2008 5:00 AM CDT 07/17/2008 7:32 AM CDT us Daniel Gagnon (Excluded Provider) Beau DEL RIO CHEMISTRY O RDERABLES Final Result Performing Organization Address City/[facility] Co de Phone Number INTERFACE SYSTEM Refer to clinic/hospital department [facility] CLIA# [id number] [address] [place] [address] * FOLATE RBC AND HEMATOCRIT (07/17/2008 5:00 AM CDT) Pathologist [facility] HEMATOCRIT, FOLATE 39.4 35.5 - 44.0 % [facility] RBC FOLATE 373 >=281 ng/mL [facility] Comment: Note: New Reference Range Effective 2007 Performed by: [employer] [id number] [place] [address] Blood specimen (specimen) 07/17/2008 5:00 AM CDT 07/17/2008 7:32 AM CDT us Daniel Gagnon (Excluded Provider) Beau DEL RIO CHEMISTRY O CHUCHO Edited Performing Organization Address [facility] de Phone Number INTERFACE SYSTEM Refer to clinic/hospital department [facility] CLIA# [id number] [address] [place] [address] * VITAMIN B12 (07/17/2008 5:00 AM CDT) Pathologist [facility] VITAMIN B12 580 211 - 946 pg/mL [facility] Comment: It has been reported that between 5 to 10% of patients with values between 200 and 400 pg/mL may experience neuropsychiatric and hematologic abnormalities due to occult B12 deficiency. Less than 1% of patients with values above 400 pg/mL will have symptoms. Blood specimen (specimen) 07/17/2008 5:00 AM CDT 07/17/2008 7:32 AM CDT us Daniel Gagnon (Excluded Provider) Beau DEL RIO CHEMISTRY O CHUCHO Final Result Performing Organization Address [facility] de Phone Number INTERFACE SYSTEM Refer to clinic/hospital department [facility] CLIA# [id number] [address] [place] [address] * SEDIMENTATION RATE (07/17/2008 5:00 AM CDT) Pathologist [facility] ESR (SEDIMENTATION RATE) 7 0 - 30 mm/hr [facility] Blood specimen (specimen) 07/17/2008 5:00 AM CDT 07/17/2008 7:32 AM CDT us Daniel Gagnon (Excluded Provider) Beau DEL RIO HEMATOLOGY ORDERABLES Final Result Performing Organization Address [facility] de Phone Number INTERFACE SYSTEM Refer to clinic/hospital department [facility] CLIA# [id number] [address] [place] [address] * RHEUMATOID FACTOR (07/17/2008 5:00 AM CDT) Pathologist [facility] RHEUMATOID FACTOR 6.4 0.0 - 13.9 IU/mL [facility] Blood specimen (specimen) 07/17/2008 5:00 AM CDT 07/17/2008 7:32 AM CDT us Daniel Gagnon (Excluded Provider) Beau DEL RIO CHEMISTRY O RDERABLES Final Result Performing Organization Address [facility] de Phone Number INTERFACE SYSTEM Refer to clinic/hospital department [facility] CLIA# [id number] [address] [place] [address] * (ABNORMAL) LIPID PANEL (07/17/2008 5:00 AM CDT) HDL 82(H) 40 - 59 mg/dL [facility] CHOLESTEROL 212(H) 100 - 199 mg/dL [facility] TRIGLYCERIDE 120 10 - 149 mg/dL [facility] CHOL/HDL RATIO 2.6 2.0 - 5.0 [facility] LDL CALCULATED 106(H) <=99 mg/dL [facility] LIPID PANEL COMMENT See Below [facility] Comment: The adult ATP and pediatric NCEP classifications for lipids are available on the [facility] Intranet at: [email or web address] Select: Lab Policies and Procedures,Current Select: Lipid Panel Interpretation Blood specimen (specimen) 07/17/2008 5:00 AM CDT 07/17/2008 7:32 AM CDT us Daniel Gagnon (Excluded Provider) Beau DEL RIO CHEMISTRY O RDERABLES Edited INTERFACE SYSTEM Refer to clinic/hospital department [facility] CLIA# [id number] [address] [place] [address] * BASIC METABOLIC PANEL (07/17/2008 5:00 AM CDT) BUN 9 6 - 20 mg/dL [facility] CHLORIDE 101 96 - 108 mmol/L [facility] GLUCOSE 88 65 - 99 mg/dL [facility] SODIUM 137 135 - 145 mmol/L [facility] CALCIUM 9.3 8.6 - 10.2 mg/dL [facility] CO2 27 22 - 30 mmol/L [facility] CREATININE 0.59 0.51 - 0.95 mg/dL [facility] POTASSIUM 4.8 3.5 - 4.9 mmol/L [facility] GFR, >60 >=60 mL/min/1.7 sq meter [facility] GFR >60 >=60 mL/min/1.7 sq meter [facility] Comment: Modification of Diet in Renal Disease (MDRD) study formula. Estimated GFR rate interpretative information for both Americans and non- Americans is available on the [facility] [employer] at: [email or web address] Select: Lab Policies and Procedures Select: Reference Ranges - GFR Blood specimen (specimen) 07/17/2008 5:00 AM CDT 07/17/2008 7:32 AM CDT Daniel Gagnon (Excluded Provider) Beau DEL RIO CHEMISTRY O RDERABLES Edited Performing Organization Address [facility] de Phone Number INTERFACE SYSTEM Refer to clinic/hospital department [facility] CLIA# [id number] [address] [place] [address] * URINALYSIS (07/16/2008 7:23 PM CDT) CLARITY UA Clear Clear [facility] PROTEIN UA Negative Negative [facility] BILIRUBIN UA Negative Negative [facility] LEUKOCYTE ESTERASE UA Negative Negative [facility] SPECIFIC GRAVITY UA 1.005 1.001 - 1.035 [facility] BLOOD UA Negative Negative [facility] GLUCOSE UA Negative Negative [facility] COLOR UA Pale Yellow [facility] NITRITE UA Negative Negative [facility] UROBILINOGEN UA <1 <=1 mg/dL [facility] PH UA 5.5 5.0 - 8.0 [facility] KETONES UA Negative Negative [facility] Urine specimen (specimen) 07/16/2008 7:23 PM CDT 07/16/2008 9:18 PM CDT us Bib Solis MD URINE ORDERABLES Final Result Performing Organization Address [facility] Phone Number INTERFACE SYSTEM Refer to clinic/hospital department [facility] CLIA# [id number] [address] [place] [address] * DRUG SCREEN, URINE (07/16/2008 7:19 PM CDT) COMMENT, TOXICOLOGY See Separate Comment [facility] Comment: Urine sample was not handled as a legal specimen and was received without a chain of custody. The result should be used only for medical purposes. False positive and erroneous results can occur due to cross-reacting substances and other factors. Depending on the clinical context, confirmation of all presumptive positive results by a more specific alternate method is recommended. A negative result indicates the analyte, if present, is below the screening threshold. Drug Ref. Range Screening Threshold Amphetamines Negative 1000 ng/mL Barbiturates Negative 200 ng/mL Benzodiazepines Negative 300 ng/mL Cannabinoids Negative 50 ng/mL Cocaine Metabolites Negative 300 ng/mL Opiates Negative 300 ng/mL Phencyclidine Negative 25 ng/mL The cut-off threshold, known cross-reactive compounds, drugs,and specificity information for each of the urine drugs of abuse are available on the [facility] Intranet at: [email or web address] Select: Lab Policies & Procedures Select: Drugs of Abuse-[facility] To inquire about any potential cross-reactivity of a specific drug not listed at this site, please contact the Chemistry Lab at . AMPHETAMINE QUAL, URINE Negative Negative [facility] BARBITURATE QUAL, URINE Negative Negative [facility] BENZODIAZEPINE QUAL, URINE Negative Negative [facility] CANNABINOIDS QUAL, URINE Negative Negative [facility] COCAINE QUAL URINE Negative Negative [facility] OPIATE QUAL, URINE Negative Negative [facility] PCP QUAL, URINE Negative Negative [facility] Urine specimen (specimen) 07/16/2008 7:19 PM CDT 07/16/2008 9:05 PM CDT us Bib Solis MD URINE ORDERABLES Edited INTERFACE SYSTEM Refer to clinic/hospital department [facility] CLIA# [id number] [address] [place] [place] [address] * TSH (07/16/2008 8:00 AM CDT) TSH 1.50 0.27 - 4.20 uU/mL [facility] Blood specimen (specimen) 07/16/2008 8:00 AM CDT 07/16/2008 10:08 AM CDT us Bib Solis MD CHEMISTRY ORDERABLES Final Resul t INTERFACE SYSTEM Refer to clinic/hospital department [facility] CLIA# [id number] [address] [place], [place] [address] * (ABNORMAL) COMPREHENSIVE METABOLIC PANEL (07/16/2008 8:00 AM CDT) CREATININE 0.63 0.51 - 0.95 mg/dL [facility] ALT 23 0 - 31 U/L [facility] SODIUM 132(L) 135 - 145 mmol/L [facility] ALKALINE PHOSPHATASE 58 35 - 104 U/L [facility] CO2 28 22 - 30 mmol/L [facility] BILIRUBIN TOTAL 0.3 0.2 - 1.0 mg/dL [facility] POTASSIUM 3.4(L) 3.5 - 4.9 mmol/L [facility] TOTAL PROTEIN 6.7 6.3 - 8.6 g/dL [facility] GLUCOSE 94 65 - 99 mg/dL [facility] AST 29 12 - 32 U/L [facility] BUN 9 6 - 20 mg/dL [facility] CALCIUM 9.4 8.6 - 10.2 mg/dL [facility] ALBUMIN 4.3 3.4 - 4.8 g/dL [facility] CHLORIDE 94(L) 96 - 108 mmol/L [facility] GFR, >60 >=60 mL/min/1. 7 sq meter [facility] GFR >60 >=60 mL/min/1. 7 sq meter [facility] Comment: Modification of Diet in Renal Disease (MDRD) study formula. Estimated GFR rate interpretative information for both Americans and non- Americans is available on the [facility] Intranet at: [email or web address] Select: Lab Policies and Procedures Select: Reference Ranges - GFR Blood specimen (specimen) 07/16/2008 8:00 AM CDT 07/16/2008 10:08 AM CDT Bib Solis MD CHEMISTRY ORDERABLES Edited Performing Organization Address [facility] Phone Number INTERFACE SYSTEM Refer to clinic/hospital department [facility] CLIA# [id number] [address] [place] [address] * CARBAMAZEPINE LEVEL (07/16/2008 8:00 AM CDT) CARBAMAZEPINE LEVEL 8.2 4.0 - 12.0 ug/mL [facility] Comment: Performed at [facility]. Carbamazepine Toxic Level => 20 ug/mL Blood specimen (specimen) 07/16/2008 8:00 AM CDT 07/16/2008 10:08 AM CDT Bib Solis MD CHEMISTRY ORDERABLES Final Resul t Performing Organization Address [facility] de Phone Number INTERFACE SYSTEM Refer to clinic/hospital department [facility] CLIA# [id number] [address] [place] [address] * (ABNORMAL) CBC WITH DIFFERENTIAL (07/16/2008 8:00 AM CDT) HEMATOCRIT 41.6 35.5 - 44.0 % [facility] RDW-STDEV 43.0 37.1 - 48.7 fL [facility] RBC 4.53 3.90 - 4.90 M/uL [facility] MCHC 33.9 31.5 - 35.5 % [facility] MCV 91.8 82.0 - 99.0 fL [facility] PLATELETS 239 140 - 350 K/uL [facility] HEMOGLOBIN 14.1 11.8 - 14.8 g/dL [facility] RDW 12.8 11.5 - 14.5 % [facility] WBC 2.7(L) 4.0 - 9.8 K/uL [facility] MCH 31.1 27.2 - 32.6 pg [facility] MPV 11.2 9.3 - 12.4 fL [facility] NEUTROPHIL ABSOLUTE 1.18(L) 1.90 - 7.00 K/uL [facility] BASOPHILS 0 0 - 2 % [facility] EOSINOPHIL ABSOLUTE 0.09 0.00 - 0.70 K/uL [facility] MONOCYTES 15(H) 3 - 13 % [facility] LYMPHOCYTE ABSOLUTE 0.99 0.70 - 4.50 K/uL [facility] NEUTROPHILS 44(L) 45 - 70 % [facility] BASOPHILS ABSOLUTE 0.01 0.00 - 0.20 K/uL [facility] EOSINOPHILS 3 0 - 7 % [facility] MONOCYTE ABSOLUTE 0.40 0.10 - 1.30 K/uL [facility] LYMPHOCYTES 37 16 - 45 % [facility] Blood specimen (specimen) 07/16/2008 8:00 AM CDT 07/16/2008 10:08 AM CDT us Bib Solis MD HEMATOLOGY ORDERABLES Edited INTERFACE SYSTEM Refer to clinic/hospital department [facility] CLIA# [id number] [address] [place] [address] documented in this encounter Visit Diagnoses Not on filedocumented in this encounter Care Teams Bridge Maintainer Relationship Specialty Start Date End Date Kylie Reynolds MD NO ADDRESS ON FILE PCP - General 01/23/01 02/25/16 documented as of this encounter
--- OUTSIDE RECORDS SUMMARY | 2024-10-23 21:45 | XMS_ITS | Encounter Summary ---
Author Organization [employer] Address [address] [place] [address] Care Team Providers Care Nail Maker Name Role Phone Kylie Reynolds MD Primary Care Provider Brennan hagan Encounter Details Date Type Department Care Team (Latest Contact Info) Description 07/28/2004 Outpatient [facility] [address] [place] [phone] Kylie eRynolds MD NO ADDRESS ON FILE LUMBAR DISC DISPLACEMENT (Primary Dx) Social History Tobacco Use Types Packs/Day Years Used Date Smoking Tobacco: Never Assessed Comments Unknown Sex and Gender Information Value Date Recorded Sex Assigned at Not on file 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
--- OUTSIDE RECORDS SUMMARY | 2024-10-23 21:45 | XMS_ITS | Encounter Summary ---
Author Organization [email or web address] Address 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
--- OUTSIDE RECORDS SUMMARY | 2024-10-23 21:45 | XMS_ITS | Encounter Summary ---
Author Organization [email or web address] Address 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
--- OUTSIDE RECORDS SUMMARY | 2024-10-23 21:45 | XMS_ITS | Encounter Summary ---
Author Organization [employer] Address 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
--- OUTSIDE RECORDS SUMMARY | 2024-10-23 21:45 | XMS_ITS | Encounter Summary ---
Author Organization [employer] Address 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
--- OUTSIDE RECORDS SUMMARY | 2024-10-23 21:45 | XMS_ITS | Encounter Summary ---
Author Organization [employer] Address 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
--- OUTSIDE RECORDS SUMMARY | 2024-10-23 21:45 | XMS_ITS | Encounter Summary ---
Author Organization [employer] Address 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
--- OUTSIDE RECORDS SUMMARY | 2024-10-23 21:45 | XMS_ITS | Encounter Summary ---
Author Organization [facility] Address [address] [place] [address] Care Team Providers Care Machine Compositor Name Role Phone Kylie Reynolds MD Primary Care Provider Brennan hagan Encounter Details Date Type Department Care Team (Latest Contact Info) Description 04/03/2008 Outpatient Historical [facility] Yosvany Bell MD [address] [place] [phone] Other Screening Mammogram Social History Tobacco Use Types Packs/Day Years Used Date Smoking Tobacco: Never Assessed Comments Unknown Sex and Gender Information Value Date Recorded Sex Assigned at Not on file Legal Sex Female 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 Gender Identity Not on file Sexual Orientation Not on file documented as of this encounter Plan of Treatment Not on file documented as of this encounter Procedures Procedure Name Priority Date/Time Associated Diagnosis Comments MAMMO SCREEN BILAT W OR WO CAD Routine 04/03/2008 2:51 PM CDT documented in this encounter Results * MAMMO DIGITAL SCREEN BILAT (04/03/2008 2:51 PM CDT) Anatomical Region Laterality Modality Breast Bilateral Other 04/03/2008 2:51 PM CDT Narrative 04/04/2008 4:57 PM CDT [address] [address] Admit Date: 04/03/2008 RINA GONSALES Sex: F Admit Prov: YOSVANY FUENTES Date: 1950 Primary Care Prov: BRIE STALLWORTH CMRN: [id number] Room: ROCIO SSN: [id number] IMAGING SERVICES Ordering Prov: YOSVANY FUENTES Accession Number: [id number] Interpretation BILATERAL FULL FIELD DIGITAL SCREENING MAMMOGRAM [...] AMK Procedure Note Rivka Gupta - 04/04/2008 [facility] [address] [place], [place] [address] Admit Date: 04/03/2008 RINA GONSALES Sex: F Admit Prov: YOSVANY FUENTES Date: 1950 Primary Care Prov: BRIE STALLWORTH CMRN: [id number] Room: ROCIO SSN: [id number] IMAGING SERVICES Ordering Prov: YOSVANY FUENTES Interpretation [...] GUPTA 04/04/2008 16:56 Transcribed: 04/04/2008 14:47 AMK us Yosvany Fuentes MD MAMMO ORDERABLES Final Resul t documented in this encounter Visit Diagnoses Diagnosis Other screening mammogram documented in this encounter Care Teams Machine Compositor Relationship Specialty Start Date End Date Kylie Reynolds MD NO ADDRESS ON FILE PCP - General 01/23/01 02/25/16 documented as of this encounter
--- OUTSIDE RECORDS SUMMARY | 2024-10-23 21:45 | XMS_ITS | Encounter Summary ---
Author Organization [employer] Address [address] [place] [address] Care Team Providers Care Electrical Line Worker Name Role Phone Kylie Reynolds MD Primary Care Provider Brennan hagan Encounter Details Date Type Department Care Team (Latest Contact Info) Description 08/26/2004 Outpatient [facility] [address] [place] [phone] Kylie Reynolds MD NO ADDRESS ON FILE SCREENING MAMM-MAILG NEOPL-OTHER (Primary Dx) Social History Tobacco Use Types Packs/Day Years Used Date Smoking Tobacco: Never Assessed Comments Unknown Sex and Gender Information Value Date Recorded Sex Assigned at Not on file Legal Sex Female 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
--- OUTSIDE RECORDS SUMMARY | 2024-10-23 21:45 | XMS_ITS | Encounter Summary ---
Author Organization [facility] Address [address] [place] [address] Care Team Providers Care Assistant Professor Of Communication Name Role Phone Kylie Reynolds MD Primary Care Provider Unavailab le Encounter Details Date Type Department Care Team (Late st Contact Info) Description 06/19/2006 Outpatient Historical [facility] Medicine [address] [place] [address] Kylie Reynolds MD NO ADDRESS ON FILE Social History Tobacco Use Types Packs/Day Years Used Date Smoking Tobacco: Never Assessed Comments Unknown Sex and Gender Information Value Date Recorded Sex Assigned at Not on file Legal Sex Female 5:26 AM CODING ASSISTANT Gender Identity Not on file Sexual Orientation Not on file documented as of this encounter Plan of Treatment Not on file documented as of this encounter Visit Diagnoses Not on filedocumented in this encounter Care Teams Assistant Professor Of Communication Relationship Specialty Start Date End Date Kylie Reynolds MD NO ADDRESS ON FILE PCP - General 01/23/01 02/25/16 documented as of this encounter
--- OUTSIDE RECORDS SUMMARY | 2024-10-23 21:45 | XMS_ITS | Encounter Summary ---
Author Organization [facility] Address [address] [place] [address] Care Team Providers Care Protection Consultant Name Role Phone Kylie Reynolds MD Primary Care Provider Brennan hagan Encounter Details Date Type Department Care Team (Latest Contact Info) Description 01/23/2008 Outpatient Historical [facility] DISTRICT MANAGER - Medical [address] [address] Yosvany Coppola MD [address] [place] [phone] Screening for Malignant Neoplasm of the Cervix Social History Tobacco Use Types Packs/Day Years Used Date Smoking Tobacco: Never Assessed Comments Unknown Sex and Gender Information Value Date Recorded Sex Assigned at Not on file Legal Sex Female 5:26 AM THERAPEUTIC CONSULTANT Gender Identity Not on file Sexual Orientation Not on file documented as of this encounter Plan of Treatment Not on file documented as of this encounter Procedures Procedure Name Priority Date/Time Associated Diagnosis Comments CERV/VAG CYTOPATH, THIN PREP IMAGR RFLX HPV Routine 01/23/2008 11:40 PM CDT CHLAMYDIA AND GC, PAP VIAL Routine 01/23/2008 11:40 PM CDT documented in this encounter Results * CHLAMYDIA AND GC, PAP VIAL (01/23/2008 11:40 PM CDT) CHLAMYDIA TRACHOMATIS DNA NOT DETECTED [facility] Comment: REFERENCE RANGE: NOT DETECTED GC DNA AMPLIFICATION NOT DETECTED [facility] Comment: REFERENCE RANGE: NOT DETECTED COMMENT ansi See Result Comment [facility] Comment: THE PERFORMANCE CHARACTERISTICS OF THIS ASSAY HAVE BEEN DETERMINED BY [facility]. PERFORMANCE CHARACTERISTICS REFER TO THE ANALYTICAL PERFORMANCE OF THE TEST. Lab test performed by: [facility] [address] [place] [address] TRIXIE VICTOR MD Specimen from uterine cervix (specimen) 01/23/2008 11:40 PM CDT 01/23/2008 11:46 PM CDT us Yosvany Coppola MD BODY FLUIDS AND STOOLS COM F inal Result [facility] CLIA# [id number] [address] [facility] [place] [address] * CERV/VAG CYTOPATH, THIN PREP MOSAIC FLOOR LAYER W/RFLX (01/23/2008 11:40 PM CDT) SOURCE Cervix, Endocervix S [facility] LAST MENSTRUAL PERIOD [facility] CLINICAL INFORMATION Postmenopausal [facility] CYTOTECHNOLOGI ST: AMW, CT(ASCP) [facility] Comment: Lab test performed by: [facility] [address] [facility] [place] [address] TRIXIE VICTOR MD REPORT STATUS FINAL [facility] [place] Pap Comment This PAP test has been evaluated with computer assisted technology. Based on the cytology result, reflex High Risk HPV DNA testing was not performed. [facility] PREV PAP: INFORMATION NOT PROVIDED [facility] ADEQUACY: SATISFACTORY FOR EVALUATION [facility] PREV BX: INFORMATION NOT PROVIDED [facility] PAP INTERP Negative for intraepithelial lesion or malignancy. Atrophic pattern; predominantly parabasal cells [facility] Specimen from uterine cervix (specimen) 01/23/2008 11:40 PM CDT 01/23/2008 11:46 PM CDT us Yosvany Coppola MD PATHOLOGY/CYTOLOGY ORDERABLE S Final Result [facility] CLIA# [id number] [address] [place] [address] documented in this encounter Visit Diagnoses Diagnosis Screening for malignant neoplasm of the cervix documented in this encounter Care Teams Protection Consultant Relationship Specialty Start Date End Date Kylie Reynolds MD NO ADDRESS ON FILE PCP - General 01/23/01 02/25/16 documented as of this encounter
--- OUTSIDE RECORDS SUMMARY | 2024-10-23 21:45 | XMS_ITS | Encounter Summary ---
Author Organization [employer] Address [address] [place] [address] Care Team Providers Care Cheese Blender Name Role Phone Kylie Reynolds MD Primary Care Provider Brennan hagan Encounter Details Date Type Department Care Team (Latest Contact Info) Description 12/19/2005 Outpatient [facility] [address] [phone] Yosvany Coppola MD [address] [place] [phone] Observation for Other Specified Suspected Conditions (Primary Dx) Social History Tobacco Use Types Packs/Day Years Used Date Smoking Tobacco: Never Assessed Comments Unknown Sex and Gender Information Value Date Recorded Sex Assigned at Not on file Legal Sex Female 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
--- OUTSIDE RECORDS SUMMARY | 2024-10-23 21:45 | XMS_ITS | Encounter Summary ---
Author Organization [facility] Address [address] [place] [address] Care Team Providers Care Dioramist Name Role Phone Kylie Reynolds MD Primary Care Provider Unavailab le Encounter Details Date Type Department Care Team (Late st Contact Info) Description 10/13/2004 Outpatient Historical [facility] Medicine [address] [place] [address] Kylie Reynolds MD NO ADDRESS ON FILE Social History Tobacco Use Types Packs/Day Years Used Date Smoking Tobacco: Never Assessed Comments Unknown Sex and Gender Information Value Date Recorded Sex Assigned at Not on file Legal Sex Female 5:26 AM HEMATOLOGY ONCOLOGY CONSULTANT Gender Identity Not on file Sexual Orientation Not on file documented as of this encounter Plan of Treatment Not on file documented as of this encounter Visit Diagnoses Not on filedocumented in this encounter Care Teams Dioramist Relationship Specialty Start Date End Date Kylie Reynolds MD NO ADDRESS ON FILE PCP - General 01/23/01 02/25/16 documented as of this encounter
--- OUTSIDE RECORDS SUMMARY | 2024-10-23 21:45 | XMS_ITS | Encounter Summary ---
Author Organization [employer] Address 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
[2024-10-23 21:46] VITALS: BP 108/68; PULSE 64; RESP 27; O2SAT 99
--- OUTSIDE RECORDS SUMMARY | 2024-10-23 21:46 | XMS_ITS | Encounter Summary ---
Author Organization [facility] Address [address] [place] [address] Care Team Providers Care Machine Adjuster Helper Name Role Phone Kylie Reynolds MD Primary Care Provider Unavailab le Encounter Details Date Type Department Care Team (Late st Contact Info) Description 11/06/2003 Outpatient Historical [facility] Medicine [address] [place] [address] Kylie Reynolds MD NO ADDRESS ON FILE Social History Tobacco Use Types Packs/Day Years Used Date Smoking Tobacco: Never Assessed Comments Unknown Sex and Gender Information Value Date Recorded Sex Assigned at Not on file Legal Sex Female 5:26 AM ACCOUNTING TECHNICIAN Gender Identity Not on file Sexual Orientation Not on file documented as of this encounter Plan of Treatment Not on file documented as of this encounter Visit Diagnoses Not on filedocumented in this encounter Care Teams Machine Adjuster Helper Relationship Specialty Start Date End Date Kylie Reynolds MD NO ADDRESS ON FILE PCP - General 01/23/01 02/25/16 documented as of this encounter
--- OUTSIDE RECORDS SUMMARY | 2024-10-23 21:46 | XMS_ITS | Encounter Summary ---
Author Organization [employer] Address [address] [place] [address] Care Team Providers Care Water Superintendent Name Role Phone Kylie Reynolds MD Primary Care Provider Brennan hagan Encounter Details Date Type Department Care Team (Latest Contact Info) Description 07/24/2003 Outpatient Historical [facility] Kylie Gorman MD NO ADDRESS ON FILE OTHER MALAISE AND FATIGUE (Primary Dx) Social History Tobacco Use Types Packs/Day Years Used Date Smoking Tobacco: Never Assessed Comments Unknown Sex and Gender Information Value Date Recorded Sex Assigned at Not on file Legal Sex Female 5:26 AM CHIEF ARCHITECT Gender Identity Not on file Sexual Orientation Not on file documented as of this encounter Plan of Treatment Not on file documented as of this encounter Visit Diagnoses Diagnosis Other malaise and fatigue- Primary documented in this encounter Care Teams Water Superintendent Relationship Specialty Start Date End Date Kylie Reynolds MD NO ADDRESS ON FILE PCP - General 01/23/01 02/25/16 documented as of this encounter
--- OUTSIDE RECORDS SUMMARY | 2024-10-23 21:46 | XMS_ITS | Encounter Summary ---
Author Organization [employer] Address [address] [place] [address] Care Team Providers Care Senior Brand Manager Name Role Phone Kylie Reynolds MD Primary Care Provider Unavailab le Encounter Details Date Type Department Care Team (Late st Contact Info) Description 06/19/2003 Outpatient Historical [facility] Ronnie Lane MD NO ADDRESS ON FILE SCREENING MAL NEOP-COLON (Primary Dx) Social History Tobacco Use Types Packs/Day Years Used Date Smoking Tobacco: Never Assessed Comments Unknown Sex and Gender Information Value Date Recorded Sex Assigned at Not on file Legal Sex Female 5:26 AM RECORDS ANALYSIS MANAGER Gender Identity Not on file Sexual Orientation Not on file documented as of this encounter Plan of Treatment Not on file documented as of this encounter Visit Diagnoses Diagnosis Special screening for malignant neoplasms, colon- Primary documented in this encounter Care Teams Senior Brand Manager Relationship Specialty Start Date End Date Kylie Reynolds MD NO ADDRESS ON FILE PCP - General 01/23/01 02/25/16 documented as of this encounter
--- OUTSIDE RECORDS SUMMARY | 2024-10-23 21:46 | XMS_ITS | Encounter Summary ---
Author Organization [facility] Address [address] [place] [address] Care Team Providers Care Telecommunication Tower Technician Name Role Phone Kylie Reynolds MD Primary Care Provider Unavailab le Encounter Details Date Type Department Care Team (Late st Contact Info) Description 02/17/2003 Outpatient Historical [facility] Medicine [address] [place] [address] Kylie Reynolds MD NO ADDRESS ON FILE Social History Tobacco Use Types Packs/Day Years Used Date Smoking Tobacco: Never Assessed Comments Unknown Sex and Gender Information Value Date Recorded Sex Assigned at Not on file Legal Sex Female 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
--- OUTSIDE RECORDS SUMMARY | 2024-10-23 21:46 | XMS_ITS | Encounter Summary ---
Author Organization [facility] Address [address] [place] [address] Care Team Providers Care Tuna Purse Seiner Name Role Phone Kylie Reynolds MD Primary Care Provider Unavailab le Encounter Details Date Type Department Care Team (Late st Contact Info) Description 06/26/2003 Outpatient Historical [facility] Medicine [address] [place] [address] Kylie Reynolds MD NO ADDRESS ON FILE Social History Tobacco Use Types Packs/Day Years Used Date Smoking Tobacco: Never Assessed Comments Unknown Sex and Gender Information Value Date Recorded Sex Assigned at Not on file Legal Sex Female 5:26 AM LINE CONSTRUCTION SUPERINTENDENT Gender Identity Not on file Sexual Orientation Not on file documented as of this encounter Plan of Treatment Not on file documented as of this encounter Visit Diagnoses Not on filedocumented in this encounter Care Teams Tuna Purse Seiner Relationship Specialty Start Date End Date Kylie Reynolds MD NO ADDRESS ON FILE PCP - General 01/23/01 02/25/16 documented as of this encounter
--- OUTSIDE RECORDS SUMMARY | 2024-10-23 21:46 | XMS_ITS | Encounter Summary ---
Author Organization [facility] Address [address] [place] [address] Care Team Providers Care Surg Nurse Name Role Phone Kylie Reynolds MD Primary Care Provider Brennan hagan Encounter Details Date Type Department Care Team (Latest Contact Info) Description 06/12/2003 Outpatient Historical [facility] Kylie Galicia MD NO ADDRESS ON FILE FOLLOW-UP EXAM NEC (Primary Dx) Social History Tobacco Use Types Packs/Day Years Used Date Smoking Tobacco: Never Assessed Comments Unknown Sex and Gender Information Value Date Recorded Sex Assigned at Not on file Legal Sex Female 5:26 AM MAKEUP INSTRUCTOR Gender Identity Not on file Sexual Orientation Not on file documented as of this encounter Plan of Treatment Not on file documented as of this encounter Visit Diagnoses Diagnosis Other follow-up examination(V67.59)- Primary Other follow-up examination documented in this encounter Care Teams Surg Nurse Relationship Specialty Start Date End Date Kylie Reynolds MD NO ADDRESS ON FILE PCP - General 01/23/01 02/25/16 documented as of this encounter
--- OUTSIDE RECORDS SUMMARY | 2024-10-23 21:46 | XMS_ITS | Encounter Summary ---
Author Organization [facility] Address [address] [place] [address] Care Team Providers Care Belt Worker Name Role Phone Kylie Reynolds MD Primary Care Provider Unavail le Encounter Details Date Type Department Care Team (Late st Contact Info) Description 05/18/2001 Outpatient Historical [facility] Family Medicine [place] [id number] [place] [phone] [place] [address] [facility] [address] [place] [address] Social History Tobacco Use Types Packs/Day Years Used Date Smoking Tobacco: Never Assessed Comments Unknown Sex and Gender Information Value Date Recorded Sex Assigned at Not on file Legal Sex Female 5:26 AM DOOR TO DOOR SALESMAN Gender Identity Not on file Sexual Orientation Not on file documented as of this encounter Plan of Treatment Not on file documented as of this encounter Visit Diagnoses Not on filedocumented in this encounter Care Teams Belt Worker Relationship Specialty Start Date End Date Kylie Reynolds MD NO ADDRESS ON FILE PCP - General 01/23/01 02/25/16 documented as of this encounter
--- OUTSIDE RECORDS SUMMARY | 2024-10-23 21:46 | XMS_ITS | Clinical Summary ---
Author Organization [facility] Address [address] [place] [address] Care Team Providers Care Marine Scientist Name Role Phone Martín Cuenca MD Primary Care Provider [phone] Allergies Active Allergy Reactions Criticality Noted Date Comments Ceftriaxone Itching Low 12/14/2021 Cyclobenzaprine Itching Low 03/14/2023 Other Swelling Medium 10/04/2021 Patient states she's allergic to surgical steel, she states it swells up and has to be removed. Pt also states she's allergic to copper, causes medium irritation Medications atorvastatin (LIPITOR) 40 mg tablet TAKE ONE TABLET BY MOUTH EVERY DAY 90 0 4 Active ARIPiprazole (ABILIFY) 5 mg tablet Take 1 tablet (5 mg total) by mouth daily Active pantoprazole DR (PROTONIX) 20 mg EC tablet Take 1 tablet (20 mg total) by mouth daily as needed 9 Active azelaic acid 15 % gel 1 Active amLODIPine (NORVASC) 5 mg tablet Take 1 tablet (5 mg total) by mouth daily 1 Active cholecalcifero l (VITAMIN D-3) 2000 unit capsule Take 1 capsule (2,000 Units total) by mouth daily 30 capsule 2 Active FLUoxetine (PROzac) 10 mg tablet/capsule Take 4 tablet/capsule (40 mg total) by mouth daily Patient states she takes 1 40 mg tablet Active lamoTRIgine (LaMICtal) 200 mg tablet 2 Active calcium-vits V3-B-A2-minera ls 166.75 mg- 166.75 unit capsule Take by mouth Active qj-9-ixv-epa-f hans oil-vit D3 300-1,000-1,00 0 mg-mg-unit capsule Take by mouth Active metroNIDAZOLE (METROCREAM) 0.75 % creamIndicatio ns:Acne Rosacea Apply topically 2 (two) times a day Active lisinopriL (PRINIVIL,ZEST RIL) 40 mg tablet Take 1 tablet (40 mg total) by mouth daily 2 Active cyanocobalamin , vitamin B-12, 5,000 mcg tablet, sublingual Place under the tongue Active furosemide (LASIX) 20 mg tablet Take 1 tablet (20 mg total) by mouth daily 3 Active lecithin, soy 1,200 mg capsule Active naloxone (NARCAN) 4 mg/actuation spray,non-aero mauricio Administer 1 spray into affected nostril(s) as needed for opioid reversal or respiratory depression 1 each 3 Active naloxegoL (MOVANTIK) 25 mg tablet Take 1 tablet (25 mg total) by mouth daily 30 tablet 1 4 025 Active dextroamphetam ine-amphetamin e (ADDERALL) 30 mg tabletIndicati ons:Primary narcolepsy without cataplexy Take 1 tablet (30 mg total) by mouth 2 (two) times a day 60 tablet 5 Active modafiniL (PROVIGIL) 200 mg tabletIndicati ons:Hypersomni a Take 1 tablet (200 mg total) by mouth daily 30 tablet 5 Active HYDROcodone-ac etaminophen (NORCO) 10-325 mg per tabletIndicati ons:Pain Take 1 tablet by mouth 2 (two) times a day as needed for pain 60 tablet 4 025 modafiniL (PROVIGIL) 200 mg tabletIndicati ons:Hypersomni a Take 1 tablet (200 mg total) by mouth daily 30 tablet 4 025 Discontinu ed(Reorder ) dextroamphetam ine-amphetamin e (ADDERALL) 30 mg tabletIndicati ons:Primary narcolepsy without cataplexy Take 1 tablet (30 mg total) by mouth 2 (two) times a day 60 tablet 4 025 Discontinu ed(Reorder ) Active Problems Problem Noted Date Diagnosed Date Chronic sinusitis 01/26/2023 4th nerve palsy, 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 shelter (current) use of opiate analgesic 02/16 Acute pain due to trauma 01/26/2022 Closed fracture of left olecranon process 2021 Overview (01/25/2022): Added automatically from request for surgery [id number] Closed head injury 01/25/2022 Closed head injury, initial encounter 01/25/2022 DDD (degenerative disc disease), lumbar 01/20/20 Degenerative lumbar spinal stenosis 01/19/2022 Lumbar facet arthropathy 01/19/2022 Lumbar compression fracture, sequela 01/19/2022 Hiatal hernia 01/18/2022 Anxiety 01/14/2022 Iron deficiency anemia 01/14/2022 Assessment & Plan (03/13/2022 10:57 AM CDT): EGD and colonoscopy in 2020 noted. Likely her anemia is due to her large hiatal hernia reported. No sign of overt GI bleeding. Will schedule video capsule evaluation of the small intestine. Patient may well see benefit of repair of the hiatal hernia. Continue to follow with PCP and hematology for iron infusions. Follow up after the capsule test. 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 Spondylolisthesis of lumbosacral region 12/02/19 22 Closed fracture of right olecranon process 10/04 Overview (10/04/2021): Added automatically from request for surgery [id number] Trigger ring finger of right hand 11/07/2019 ADD (attention deficit disorder) 02/10/2016 Bipolar disorder, in full re mission, most recent episode mixed ([facility]) 02/10/2016 Dyslipidemia 02/10/2016 Hypersomnia with sleep apnea 07/09/2015 Overview (12/23/2016): Hypersomnia with sleep apnea Obstructive sleep apnea syndrome 07/09/2015 Overview (12/23/2016): Obstructive sleep apnea syndrome Depression 09/27/2013 Overview (12/22/2016): Depression Hyperlipidemia 09/27/2013 Overview (12/22/2016): Hyperlipidemia Hypertension 09/27/2013 Overview (12/23/2016): Hypertension Family history of malignant neoplasm of prostate 05/10/2005 Family history of other cardiovascular diseases( V17.49) 05/10/2005 Overview (01/14/2022): Updating IMO/ICD9 Code and Description Migraine headache 05/10/2005 Resolved Problems Problem Noted Date Diagnosed Date Resolved Date Insomnia secondary to chronic pain 01/19/2022 09/25/2023 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 10/27/2021 09/25/2023 Lumbar radiculopathy 01/17/2018 024 Obesity with body mass index 30 or greater 07/09/2015 09/25/2023 Overview (12/23/2016): Obesity (BMI 30-39.9) Pathological fracture 09/27/20132023 Overview (12/22/2016): Pathologic fracture Legally induced 05/10/200504/2024 Encounters Date Type Department Care Team Description 09/02/2024 9:45 AM OPERATIONS SUPERVISOR Office Visit [facility] [address] [place] [id number] Christina Wheat MD MCKENNA (obstructive sleep apnea) (Primary Dx); Idiopathic hypersomnia without long sleep time 08/02/2024 8:48 AM OPERATIONS SUPERVISOR - 08/02/2024 11:59 PM OPERATIONS SUPERVISOR Hospital Encounter [facility] [address] [facility] [address] [place] [address] Corazon Thomas NP Degenerative lumbar spinal stenosis (Primary Dx); Lumbar facet arthropathy; Cervicalgia Discharge Disposition: Discharge to home or self care from Last 3 Months Immunizations Name Administration Dates Next Due Influenza, Quadrivalent, Spl it, Intramuscular 06/08/2015 Influenza, Quadrivalent, Spl it, Preservative Free, Intramuscular 06/01/2022,06/09/2021,07/12/2018,05/29 Influenza, Trivalent, High D ose, Split, Preservative Free, Intramuscular 10/10/2019 Influenza, Trivalent, IM (MDV) 07/18/2016,2014,06/18/2014 Influenza, Trivalent, Preser vative Free, Intramuscular 06/01/2020,10/10/2019,07/17/2016 Pneumococcal Conjugate PCV 13 04/11/2017 Pneumococcal Polysaccharide PPV23 10/28/2019 Td, adsorbed 02/16/2003 Tdap 01/14/2022, 0,05/02/2019,09/18 ZOSTER LIVE 04/12/2017 ZOSTER Recombinant 05/31/2019,02/21/2019 Surgical History Surgery Date Site/Laterality Comments OTHER SURGICAL HISTORY Obstructive sleep apnea: CPAP OTHER SURGICAL HISTORY Tonsillectomy & adenoidectomy OTHER SURGICAL HISTORY Carpal tunnel syndrome: carpal tunnel release (bilateral) CARPAL TUNNEL RELEASE Bilateral Carpal tunnel release RHINOPLASTY x 3 FACIAL COSMETIC SURGERY on patients eyes ORIF ELBOW FRACTURE 10/05/2021 Right ELBOW HARDWARE REMOVAL 10/25/2021 Right R olecranon excision, irrigation & debridement VAGINAL DELIVERY x 2 BLADDER SUSPENSION COLONOSCOPY FL UPPER GI AIR CONTRAST W KUB 02/14/2018 Left Medical History Medical History Date Comments Hyperlipidemia Hyperlipidemia Hypertension Hypertension Attention deficit disorder ADHD Hx Other Medical Bipolar disorde r Hx Other Medical Narcolepsy Hx Other Medical Obstructive sle ep apnea Hx Other Medical Carpal tunnel s yndrome Hx Other Medical Bladder lift Hx Other Medical Rhinoplasty x 3 Hx Other Medical LASIK Hx Other Medical Lumbar fracture and lumbar disc herniation (fall f Hx Other Medical Bulimia nervosa Gastric reflux Rheumatoid arthritis ([facility]) Depression Sleep apnea GERD (gastroesophageal reflux disease) Bipolar disorder ([facility]) Cataract Septic arthritis of elbow, r ight ([facility] ([facility]) 10/2021 Staphylococcal arthritis, ri ght elbow Osteopenia Olecranon fracture, right, o pen type III, with nonunion, subsequent encounter 09/2021 Rupture of biceps tendon, ri ght, sequela Alcoholism ([facility] ([facility]) Anemia Anxiety Bleeding disorder [place] [place]) Dermatitis Diverticulitis of colon Osteoporosis Substance abuse [place] [place]) Smoking Family History Medical History Relation Name Comments Coronary artery disease Father Corie nary artery disease; Cause of : Coronary artery disease Hypertension Father Hypertension; Coronary artery disease Mother Corie nary artery disease; Cause of : Coronary artery disease Heart disease Mother Hypertension Mother Hypertension; Stroke Mother Stroke; Thyroid disease Mother Thyroid dise ase; Alcohol abuse Other Arthritis Other Blood Clot Other Heart disease Other Mental illness Other Cardiomyopathy Sister viral Hypertension Sister Hypertension; Breast cancer Neg Hx Glaucoma Neg Hx Macular degeneration Neg Hx Ovarian cancer Neg Hx Thyroid cancer Neg Hx Relation Name Status Comments Father (Age 60) Mother (Age 76) Other Sister Alive Social History Tobacco Use Types Packs/Day Years Used Date Smoking Tobacco: Former Cigarettes 1 22 1 1991 Smokeless Tobacco: Never Tobacco Cessation:Counseling Given: Not Answered Alcohol Use Standard Drinks/Week Comments No 0 (1 standard drink = 0.6 oz pur e alcohol) AUDIT-C Answer Date Recorded Q1: How often do you have a drink containing alc ohol? Never 07/25/2022 Average Number of Drinks Not on file 022 Q3: How often do you have si x or more drinks on one occasion? Never 07/25/2022 PHQ-2 Answer Date Recorded PHQ-2 Total Score (If total score is 3 or more points, staff should administer the PHQ-9) 2 08/02/2024 Comments No Sex and Gender Information Value Date Recorded Sex Assigned at Not on file Legal Sex Female 5:29 PM OPERATIONS SUPERVISOR Gender Identity Female 10/19/2020 7:50 AM OPERATIONS SUPERVISOR Sexual Orientation Straight 10/19/2020 7: 50 AM OPERATIONS SUPERVISOR Occupation Industry Job Start Date Job End Date Retired Not on file Not on file Not on file Obstetrics History Para Term AB IAB SAB Ectopic Multiple Livin g Live Births 2 0 0 Date Outcome GA Total Labor Labor/2nd/3rd Weight Sex Type Anes PTL Laura A1 A5 Name Clin Last Filed Vital Signs Vital Sign Reading Time Taken Comments Blood Pressure 126/75 09/02/2024 9:56 AM OPERATIONS SUPERVISOR Pulse 66 09/02/2024 9:56 AM OPERATIONS SUPERVISOR Temperature 37.1 C (98.7 F) 02/08/2022 11:01 AM CDT Respiratory Rate 18 08/02/2024 9:30 AM OPERATIONS SUPERVISOR Oxygen Saturation 100% 09/02/2024 9:56 AM OPERATIONS SUPERVISOR Inhaled Oxygen Concentration - - Weight 71.2 kg (157 lb) 09/02/2024 9:56 AM OPERATIONS SUPERVISOR Height 160 cm (5' 3 ) 09/02/2024 9:56 AM OPERATIONS SUPERVISOR Body Mass Index 27.81 09/02/2024 9:56 AM OPERATIONS SUPERVISOR Plan of Treatment Health Maintenance Due Date Last Done Comments Colon Cancer Screening-Colonoscopy 1950 Hepatitis C Screening 1950 Hepatitis B Screening 1970 Well Visit 65+ 2017 Fall Risk Assessment 01/28/2023 01/28/2022 Covid-19 Vaccine (2 5 season) 2024 11/19/2020, 10/30/2020 Influenza Vaccine (#1) 2024 , 06/06/2023, 06/01/2022, Additional history exists Osteoporosis Screening-Bone Density Scan 01/20/2025 01/20/2023, 01/20/2023, 01/22/2021, Additional history exists Depression Screening 08/02/2025 08/02/2024, 08/02/2024, 05/17/2024, Additional history exists Breast Cancer Screening-Mammogram 08/21/2025 08/21/2024, 08/21/2024, 03/15/2023, Additional history exists DTaP/Tdap/Td Vaccine (5 - Td or Tdap) 01/15/2032 01/14/2022, 03/24/2020, 05/02/2019, Additional history exists Pneumococcal vaccine 65+ Completed 10/28/2019, 03/19 Zoster Vaccine Completed 11/07/2023, 05/19, 02/21/2019, Additional history exists Goals Goal Patient Goal Type Associated Problems Recent Progress Patient-Stated? Author [facility] On track( 024 10:45 AM OPERATIONS SUPERVISOR) Miles Majano RN Note: Walking, sitting, sleeping, moving about with minimal to no pain. Medical Devices Implanted Type Area Mixer Pigment Device Identifier Shelf Expiration Date Model / Serial / Lot Right 3 Hole Plate [id number] Implanted:Qty: 1 on 10/05/2021 by Luis Daniel Beverly MD at [facility] Plate Right: Olecranon [employer] 70-302 / N/A / Description:[facility] item# [id number] Per [employer] dashboard is active Cost ea. 892.00 Charge code assigned [id number] Synthes Plate Bone Lcp Titanium L66 Mm 7 Hole Shaft Low Profile Cut To Length Nonsterile 2.7 Mm Screw Modular Mini Fragment System 449.684 - [id number] Implanted:Qty: 1 on 01/26/2022 by Deana Lacey MD at [facility] Plate Left: Arm Synthes I 449.684 / / 3.5 X 24 Lock [id number] Implanted:Qty: 1 on 10/05/2021 by Luis Daniel Beverly MD at [facility] Screw Right: Olecranon [employer] 30024 / N/A / Description:[facility] ITEM# [id number] IS ACTIVE PER ffk environmentE DASHBOARD COST EA. 111.00 CHARGE CODE ASSIGNED [id number] [employer] 30-0295 3mm 50mm Locking Hexalobe Elbow Screw Bone Nonsterile - [id number] Implanted:Qty: 1 on 10/05/2021 by Luis Daniel Beverly MD at [facility] Screw Right: Olecranon [employer] 30-5 / / Synthes Lcp 2.7mm 46mm Self Tap Stardrive Radius Cortical Distal T8 Screw 402.965 - [id number] Implanted:Qty: 1 on 01/26/2022 by Deana Lacey MD at [facility] Screw Left: Arm Synthes I 402.965 / / Synthes Screw Bone Titanium Full Thread L32 Mm W2.5 Mm Od2.7 Mm Odsec5 Mm Cortex Self Tap Small Hexagonal Socket Spherical Head Nonsterile Mini Fragment Set 402.892 - [id number] Implanted:Qty: 1 on 01/26/2022 by Deana Lacey MD at [facility] Screw Left: Arm Synthes I 402.892 / / Synthes Screw Bone 2.7mm 34mm Lcp Ti Darius Selftap Nonstrl Mini Frag 402.894 - [id number] Implanted:Qty: 1 on 01/26/2022 by Deana Lacey MD at [facility] Screw Left: Arm Synthes I 402.894 / / Synthes Lcp 2.7mm 24mm T8 St[employer] Recess Self Tapping Radius Cortical 402.884 - [id number] Implanted:Qty: 1 on 01/26/2022 by Deana Lacey MD at [facility] Screw Left: Arm Synthes I 402.884 / / Synthes 2.4mm 4mm 20mm Self Tap Self Retain Stardrive Low Profile Cortex 401.770 - [id number] Implanted:Qty: 1 on 01/26/2022 by Deana Lacey MD at [facility] Screw Left: Arm Synthes I 401.770 / / Synthes Lcp 2.7mm 30mm T8 Stardrive Self Tap Radius Cortex Distal Screw 402.890 - [id number] Implanted:Qty: 1 on 01/26/2022 by Deana Lacey MD at [facility] Screw Left: Forearm Synthes I 402.89 0 / / 3.5x 20 Nonlocking Screw Implanted:Qty: 1 on 10/05/2021 by Luis Daniel Beverly MD at [facility] Right: Reed [employer] / N/A / Description:[facility] ITEM#[id number] IS ACTIVE PER [employer] DASHBOARD COST EA. 68.00 EA CHARGE CODE ASSIGNED [id number] [employer] 30-0327 2.7mm 14mm Locking Hexalobe Elbow Screw Bone Nonsterile - [id number] Implanted:Qty: 2 on 10/05/2021 by Luis Daniel Beverly MD at [facility] Right: Olecranon [employer] 30-0327 / / [employer] 30-0328 2.7mm 16mm Lock Hexalobe Screw Bone Titanium Nonsterile Small - [id number] Implanted:Qty: 2 on 10/05/2021 by Luis Daniel Beverly MD at [facility] Right: Olecranon [employer] 30-0328 / / [employer] [id number] 3.5mm 20mm Locking Hexalobe Elbow Screw Bone Nonsterile - [id number] Implanted:Qty: 1 on 10/05/2021 by Luis Daniel Beverly MD at [facility] Right: Olecranon [employer] [id number] / / 2.5 X 20mm Non Locking Screw Implanted:Qty: 1 on 10/05/2021 by Luis Daniel Beverly MD at [facility] Right: Olecranon [employer] 300261 / N/A / Description:[facility] ITEM# [id number] IS ACTIVE PER [employer] DASHBOARD COST EA. 68.00 CHARGE CODE ASSIGNED [id number] Synthes Screw Bone 2.7mm 55mm Lcp Ti Darius Selftap Nonstrl Mini Frag 402.968 - [id number] Implanted:Qty: 1 on 01/26/2022 by Deana Lacey MD at [facility] Left: Forearm Synthes I 402.96 8 / / Synthes Lcp 2.4mm 4mm 22mm Self Tap Stardrive Humerus Radius Cortical 401.892 - [id number] Implanted:Qty: 2 on 01/26/2022 by Deana Lacey MD at [facility] Synthes I 401.772 / / Synthes Lcp 2.4mm 28mm Self Tapping Stardrive Recess Radius Humerus 401.778 - [id number] Implanted:Qty: 1 on 01/26/2022 by Deana Lacey MD at [facility] Synthes I 401.778 / / Synthes Plate Bone Compression Locking Low Profile 3x7 Hole Pre Contoured Lcp 2.4x58mm Ti 449.615 - [id number] Implanted:Qty: 1 on 01/26/2022 by Deana Lacey MD at [facility] Synthes I 449.615 / / Synthes Plate Bone Compression Locking Low Profile 6 Hole Pre Contoured Lcp 2.4x52mm Ti 449.676 - [id number] Implanted:Qty: 1 on 01/26/2022 by Deana Lacey MD at [facility] Synthes I 449.676 / / Synthes Screw Bone Cortical St Full Thread Lcp 2.7x44mm Ti 402.963 - [id number] Implanted:Qty: 1 on 01/26/2022 by Deana Lacey MD at [facility] Synthes I 402.963 / / Synthes Lcp 2.4mm 30mm T8 Stardrive Recess Self Tapping Locking Threaded 412.830 - [id number] Implanted:Qty: 1 on 01/26/2022 by Deana Lacey MD at [facility] Synthes I 412.830 / / Synthes Screw Bone 2.7mm 60mm Lcp Ti Darius Selftap Nonstrl Mini Frag 402.969 - [id number] Implanted:Qty: 1 on 01/26/2022 by Deana Lacey MD at [facility] Left: Arm Synthes I 402.969 / / Explanted Type Area Mixer Pigment Device Identifier Shelf Expiration Date Model / Serial / Lot [employer] K Wire Fix [place] Smooth Sgl End Ss [id number] - [id number] Explanted:Qty: 2 on 01/26/2022 by Deana Lacey MD at [facility] [employer] [id number] / / Procedures Procedure Name Priority Date/Time Associated Diagnosis Comments SCREENING MAMMOGRAM BILATERAL W TADEO Schedule Routine, Read Routine (OP Routine) 03/15/2023 8:42 AM CDT Screening mammogram, encounter for DEXA AXIAL SKELETON BONE DENSITY 1 OR MORE SITES Schedule Routine, Read Routine (OP Routine) 01/20/2023 9:14 AM CDT Low back pain, non-specific Gait difficulty Osteoporosis screening Localized osteoporosis ([place]) from Last 3 Months or Most Recently Relevant to Health Maintenance Results * DEXA Axial Skeleton Bone Density Multi Site (01/20/2023 9:14 AM CDT) Anatomical Region Laterality Modality Body N/A Other 01/21/2023 7:26 AM CDT Narrative 01/21/2023 7:28 AM CDT EXAM DESCRIPTION: DEXA AXIAL SKELETON BONE DENSITY 1 OR MORE SITES REASON FOR STUDY: 72 y/o year old F with given history of screening. Postmenopausal Mixer Pigment/Model: Entellium SL (S/N [id number]) CLINICAL INFORMATION: Current height: 63.5 inches Maximum height: 66.5 inches Weight: 155 pounds Risk factors: Postmenopausal, prior hip/vertebral fracture, eating disorder COMPARISON: 11/13/2015, 10/29/2013 FINDINGS: AP LUMBAR SPINE L1-L4: Total BMD is 1.130 g/cm2 T-score is 0.8 Dissimilar scan types or analysis methods precludes assessment for calculating a significant change. LEFT HIP: Total BMD is 0.790 g/cm2 T-score is -1.2 Dissimilar scan types or analysis methods precludes assessment for calculating a significant change. Femoral neck BMD is 0.661 g/cm2 T-score is -1.7 FRAX: FRAX tool cannot be utilized due to prior hip/vertebral fracture IMPRESSION: Low Bone Mass. REFERENCE: Bone mineral density: Normal (T-score above or = -1.0) Low bone mass (T-score between -1.0 and -2.5) replaces the previously used term osteopenia Osteoporosis (T-score = or below -2.5) Medical evaluation for secondary causes of low bone mineral density may be appropriate. FRAX is a World Health Organization validated fracture risk assessment tool that calculates a person's 10 year probability of a major osteoporosis related fracture and hip fracture. According to the National Osteoporosis Foundation guidelines, postmenopausal women and men age 50 or older with low bone mass and a 10 year probability of a major osteoporosis related fracture = or greater than 20% or a 10 year probability of a hip fracture = or greater than 3% should be considered for treatment. For further information, including treatment recommendations, please refer to the 2013 ISCD Official Positions (http://www.iscd.org) and the NOF's Clinician's Guide to Prevention and Treatment of Osteoporosis (http://www.nof.org/professionals/clinical-guidelines) THIS IS AN ELECTRONICALLY VERIFIED FINAL REPORT 01/21/2023 7:28 AM - Electronically signed by Estuardo Quach M.D. MF: [id number] Report ID: [id number] Reading Location: [place] [address] Procedure Note Estuardo Quach MD - 01/21/2023 EXAM DESCRIPTION: DEXA AXIAL SKELETON BONE DENSITY 1 OR MORE SITES REASON FOR STUDY: 72 y/o year old F with given history of screening. Postmenopausal Mixer Pigment/Model: Entellium SL (S/N [id number]) CLINICAL INFORMATION: Current height: 63.5 inches Maximum height: 66.5 inches Weight: 155 pounds Risk factors: Postmenopausal, prior hip/vertebral fracture, eatingdisorder COMPARISON: 11/13/2015, 10/29/2013 FINDINGS: AP LUMBAR SPINE L1-L4: Total BMD is 1.130 g/cm2 T-score is 0.8 Dissimilar scan types or analysis methods precludes assessment for calculating a significant change. LEFT HIP: Total BMD is 0.790 g/cm2 T-score is -1.2 Dissimilar scan types or analysis methods precludes assessment for calculating a significant change. Femoral neck BMD is 0.661 g/cm2 T-score is -1.7 FRAX: FRAX tool cannot be utilized due to prior hip/vertebral fracture IMPRESSION: Low Bone Mass. REFERENCE: Bone mineral density: Normal (T-score above or = -1.0) Low bone mass (T-score between -1.0 and -2.5) replaces thepreviously used term osteopenia Osteoporosis (T-score = or below -2.5) Medical evaluation for secondary causes of low bone mineral density may be appropriate. FRAX is a World Health Organization validated fracture risk assessmenttool that calculates a person's 10 year probability of a major osteoporosisrelated fracture and hip fracture. According to the National OsteoporosisFoundation guidelines, postmenopausal women and men age 50 or older with low bonemass and a 10 year probability of a major osteoporosis related fracture = or greater than 20% or a 10 year probability of a hip fracture = or greaterthan 3% should be considered for treatment. For further information, including treatment recommendations, please referto the 2013 ISCD Official Positions (http://www.iscd.org) and the NOF's Clinician's Guide to Prevention and Treatment of Osteoporosis (http://www.nof.org/professionals/clinical-guidelines) THIS IS AN ELECTRONICALLY VERIFIED FINAL REPORT 01/21/2023 7:28 AM - Electronically signed by Estuardo Quach M.D. MF: [email or web address] Report ID: [id number] Reading Location: [place] [address] Clive Johnson MD IMG DXA PROCEDURES Final Result from Last 3 Months or Most Recently Relevant to Health Maintenance Insurance MEDICARE SOLUTIONS MEDICARE SOLUTIONS MEDICARE SOLUTIONS Advance Directives For more information, please contact: [phone] * Full Code (Latest Code Status on File) Date Activated Date Inactivated Comments 01/26/2022 4:21 PM 01/28/2022 7:52 PM * Full Code Date Activated Date Inactivated Comments 01/26/2022 4:41 AM 01/26/2022 4:21 PM Care Teams Marine Scientist Relationship Specialty Start Date End Date Martín Cuenca MD [address] [place] [address] PCP - General Family Medicine 12/04/23
--- OUTSIDE RECORDS SUMMARY | 2024-10-23 21:46 | XMS_ITS | Encounter Summary ---
Author Organization [facility] Address [address] [place] [address] Care Team Providers Care Associate Genetics Professor Name Role Phone Kylie Reynolds MD Primary Care Provider Unavail le Encounter Details Date Type Department Care Team (Late st Contact Info) Description 12/25/[address] [facility] Family Medicine [place] [id number] [place] [address] [place] [address] [facility] [address] [place] [address] Social History Tobacco Use Types Packs/Day Years Used Date Smoking Tobacco: Never Assessed Comments Unknown Sex and Gender Information Value Date Recorded Sex Assigned at Not on file Legal Sex Female 5:26 AM SENIOR PROJECT COORDINATOR Gender Identity Not on file Sexual Orientation Not on file documented as of this encounter Plan of Treatment Not on file documented as of this encounter Visit Diagnoses Not on filedocumented in this encounter Care Teams Associate Genetics Professor Relationship Specialty Start Date End Date Kylie Reynolds MD NO ADDRESS ON FILE PCP - General 01/23/01 02/25/16 documented as of this encounter
--- OUTSIDE RECORDS SUMMARY | 2024-10-23 21:46 | XMS_ITS | Encounter Summary ---
Author Organization [employer] Address 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
--- OUTSIDE RECORDS SUMMARY | 2024-10-23 21:46 | XMS_ITS | Encounter Summary ---
Author Organization [facility] Address [address] [place] [address] Care Team Providers Care Booster Station Operator Name Role Phone Kylie Reynolds MD Primary Care Provider Brennan hagan Encounter Details Date Type Department Care Team (Latest Contact Info) Description 01/23/2001 Outpatient Historical [facility] Kylie Galicia MD NO ADDRESS ON FILE Other screening mammogram (Primary Dx) Social History Tobacco Use Types Packs/Day Years Used Date Smoking Tobacco: Never Assessed Comments Unknown Sex and Gender Information Value Date Recorded Sex Assigned at Not on file Legal Sex Female 5:26 AM FRONT END ASSISTANT Gender Identity Not on file Sexual Orientation Not on file documented as of this encounter Plan of Treatment Not on file documented as of this encounter Visit Diagnoses Diagnosis Other screening mammogram- Primary documented in this encounter Care Teams Booster Station Operator Relationship Specialty Start Date End Date Kylie Reynolds MD NO ADDRESS ON FILE PCP - General 01/23/01 02/25/16 documented as of this encounter
--- OUTSIDE RECORDS SUMMARY | 2024-10-23 21:46 | XMS_ITS | Encounter Summary ---
Author Organization [facility] Address [address] [place] [address] Care Team Providers Care Bank Representative Name Role Phone Jeniffer Burciaga MD Primary Care Provider Martín Cuenca MD Primary Care Provider [phone] Reason for Visit * Reason Onset Date Comments Cancel 09/07/202309/12 appt. Kay ent states she doesn't need the appointment. Encounter Details Date Type Department Care Team (Late st Contact Info) Description 09/07/2023 Telephone [facility] Physical [place] [address] Jose Smiley, MARICRUZ Cancel (09/12 appt. Patient states she doesn't need the appointment.) Social History Tobacco Use Types Packs/Day Years Used Date Smoking Tobacco: Former Cigarettes 1 22 - 1991 Smokeless Tobacco: Never Alcohol Use Standard Drinks/Week [...] more points, staff should administer the PHQ-9) 1 07/26/2023 Comments No Sex and Gender Information Value Date Recorded Sex Assigned at Not on file Legal Sex Female 5:29 PM MASONRY SUPERVISOR Gender Identity Female 10/19/2020 7:50 AM MASONRY SUPERVISOR Sexual Orientation Straight 10/19/2020 7: 50 AM MASONRY SUPERVISOR Occupation Industry Job Start Date Job End Date Retired Not on file Not on file Not on file documented as of this encounter Plan of Treatment Not on file documented as of this encounter Goals Goal Patient Goal Type Associated Problems Recent Progress Patient-Stated? Author [facility] On track( 024 10:45 AM MASONRY SUPERVISOR) Miles Majnao, RN Note: Walking, sitting, sleeping, moving about with minimal to no pain. documented as of this encounter Visit Diagnoses Not on filedocumented in this encounter Care Teams Bank Representative Relationship Specialty Start Date End Date Jeniffer Burciaga MD PCP - General 12/06/16 12/03/23 Martín Cuenca MD [address] [place] [address] PCP - General Family Medicine 12/04/23 documented as of this encounter
--- OUTSIDE RECORDS SUMMARY | 2024-10-23 21:46 | XMS_ITS | Encounter Summary ---
Author Organization [facility] Address [address] [place] [address] Care Team Providers Care Sr. Payroll Manager Name Role Phone Kylie Reynolds MD Primary Care Provider Unavailab le Encounter Details Date Type Department Care Team (Late st Contact Info) Description 11/02/2000 Outpatient Historical [facility] Medicine [address] [place] [address] Kylie Reynolds MD NO ADDRESS ON FILE Social History Tobacco Use Types Packs/Day Years Used Date Smoking Tobacco: Never Assessed Comments Unknown Sex and Gender Information Value Date Recorded Sex Assigned at Not on file Legal Sex Female 5:26 AM FIRST COOK Gender Identity Not on file Sexual Orientation Not on file documented as of this encounter Plan of Treatment Not on file documented as of this encounter Visit Diagnoses Not on filedocumented in this encounter Care Teams Sr. Payroll Manager Relationship Specialty Start Date End Date Kylie Reynolds MD NO ADDRESS ON FILE PCP - General 01/23/01 02/25/16 documented as of this encounter
--- OUTSIDE RECORDS SUMMARY | 2024-10-23 21:46 | XMS_ITS | Encounter Summary ---
Author Organization [facility] Address [address] [facility] [place] [address] Phone Care Team Providers Care Case Manager Specialist Name Role Phone Ramin Angeles DO Unavailable [phone] Lincoln Simpson DPM Unavailable Unavailable Martín Cuenca MD Primary Care Provider [phone] Bairon Ryan MD Unavailable [phone] Larisa Eisenberg PANELBOARD ASSEMBLER, LUTE PACKER OR APPLIER Unavailable + [phone] Cynthia Woody PANELBOARD ASSEMBLER, LUTE PACKER OR APPLIER Primary Care Provider + Elio Monae MD Unavailable Gorge Morel MD Primary Care Provider + [phone] Reason for Visit * Reason Comments Medication Refill Encounter Details Date Type Department Care Team (Late st Contact Info) Description 01/06/2024 Refill [facility] - Family Medicine [facility] [address] [place] [address] Kylie Chawla, [facility] [address] [place] [address] Medication Refill Social History Tobacco Use Types Packs/Day Years Used Date Smoking Tobacco: Former Cigarettes 1 22 0 09/18/1969 - 09/18/1991 Smokeless Tobacco: Never Comments:Stopped smoking 30 years ago Alcohol Use Standard Drinks/Week Comments Never 0 (1 standard drink = 0.6 oz pur e alcohol) 1990 stopped [facility] Utilities Answer Date Recorded In the past 12 months has e [employer], gas, oil, or water company threatened to shut off services in your home? Patient declined 09/30/2023 Social Connection and Isolation Panel [NHANES] A nswer Date Recorded In a typical week, how many times do you talk on the phone with family, friends, or neighbors? Three times a week 09/30/2023 How often do you get togethe r with friends or relatives? Twice a week 09/30/2023 How often do you attend chur ch or sabianism services? Never 09/30/2023 Do you belong to any clubs o r organizations such as faith groups, unions, fraternal or athletic groups, or school groups? No 09/30/2023 How often do you attend meet ings of the clubs or organizations you belong to? Patient declined 09/30/2023 Are you , , di vorced, , never , or living with a partner? 09/30/2023 AUDIT-C Answer Date Recorded Q1: How often do you have a drink containing alcohol? Never 09/30/2023 Q2: How many drinks containi ng alcohol do you have on a typical day when you are drinking? Patient does not drink Q3: How often do you have si x or more drinks on one occasion? Never 09/30/2023 Overall Financial Resource Strain (CARDIA) Answe r Date Recorded How hard is it for you to pa y for the very basics like food, housing, medical care, and heating? Hard 09/30/2023 PHQ-2 Answer Date Recorded Total Score - Questions 1-9 0 11/18 [facility] [place] of Occupat ional Health - Occupational Stress Questionnaire Answer Date Recorded Do you feel stress - tense, restless, nervous, or anxious, or unable to sleep at night because your mind is troubled all the time - these days? Rather much 09/30/2023 Exercise Vital Sign Answer Date Recorde d On average, how many days pe r week do you engage in moderate to strenuous exercise (like a brisk walk)? 0 days 09/30/2023 On average, how many minutes do you engage in exercise at this level? 0 min 09/30/2023 Hunger Vital Sign Answer Date Recorded Within the past 12 months, y ou worried that your food would run out before you got the money to buy more. Sometimes true Within the past 12 months, t he food you bought just didn't last and you didn't have money to get more. Sometimes true PRAPARE - Transportation Answer Date Re corded In the past 12 months, has l ack of transportation kept you from medical appointments or from getting medications? No 09/18 In the past 12 months, has l ack of transportation kept you from meetings, work, or from getting things needed for daily living? No 09/30/2023 Housing Stability Vital Sign Answer Jaden e Recorded In the last 12 months, was t here a time when you were not able to pay the mortgage or rent on time? No 09/30/2023 In the last 12 months, how many places have you lived? 1 09/30/2023 In the last 12 months, was t here a time when you did not have a steady place to sleep or slept in a long-term (including now)? No 09/30/2023 Education Answer Date Recorded What is the highest level of school you have completed or the highest degree you have received? Bachelor's degree (e.g., BA, AB, BS) 09/21/2020 Sexually Active Control Partners Comments Not Currently Post-menopausal Male Comments No Sex and Gender Information Value Date Recorded Sex Assigned at Female 11/30/2023 12:27 PM CDT Legal Sex Female 12:40 AM CDT Gender Identity Female 11/30/2023 12:27 PM CDT Sexual Orientation Straight 11/30/2023 12 :27 PM CDT documented as of this encounter Miscellaneous Notes * Telephone Encounter - Cheryl Story RN - 01/08/2024 8:17 AM CDT Medication(s) [facility] and [facility] Medication Refill Standing Order for Pediatricand Adult Patients. Requested Prescriptions Pending Prescriptions Disp Refills pantoprazole (PROTONIX) 40 MG Tablet Delayed Response [Pharmacy Med Name: Pantoprazole Sodium 40 MGOral Tablet Delayed Release] 100 Tablet 2 Sig: TAKE 1 TABLET BY MOUTH DAILY Proton Pump Inhibitors Protocol Passed - 01/06/2024 9:36 PM Passed - Visit with relevant provider in past 12 months or upcoming 90 days Recent Visits Date Type Provider Dept 12/29/23 Office Visit Cynthia Woody APRN, LUTE PACKER OR APPLIER [facility] 10/06/23 Office Visit Cynthia Woody APRN, NADIRA [facility] 05/15/23 Office Visit Jeniffer Burciaga MD [facility] 04/05/23 Office Visit Kylie Chawla PAC [facility] 03/06/23 Telemedicine Jeniffer Burciaga MD [facility] Showing recent visits within past 365 days and meeting all other requirements Future Appointments Date Type Provider Dept 02/01/24 Appointment Martín Cuenca MD [facility] Showing future appointments within next 90 days and meeting all other requirements documented in this encounter Plan of Treatment Upcoming Encounters Date Type Department Care Team (Late st Contact Info) Description 11/05/2024 1:30 PM SUPPORT DBA Appointment [facility] [address] [place] [address] Ovi Trinidad APRN, LUTE PACKER OR APPLIER [address] [place] [address] Discharge Disposition: Discharged to home or Selfcare 11/13/2024 8:00 AM SUPPORT DBA Procedure Visit [facility] #[address] [place] [address] Davion Alicea MD [address] [address] 12/18/2024 10:30 AM CDT Office Visit [facility] [place] [address] [place] [address] Cynthia Woody, PANELBOARD ASSEMBLER, LUTE PACKER OR APPLIER [address] [place] [address] 03/10/2025 1:00 PM CDT [facility] [address] [place] [address] Gilmar Bond MD [address] [place] [address] Discharge Disposition: Discharged to home or Selfcare documented as of this encounter Visit Diagnoses Diagnosis Gastroesophageal reflux disease, unspecified whether esophagitis present Hiatal hernia Diaphragmatic hernia without mention of obstruction or gangrene documented in this encounter Additional Health Concerns Assessment Noted Time PHQ-9 Depression Total Score: 0 04/12/20 18 2:00 PM CDT documented as of this encounter Care Teams Case Manager Specialist Relationship Specialty Start Date End Date Martín Cuenca MD [address] [place] [address] PCP - General Family Medicine 10/06/23 02/05/24 Cynthia Woody, PANELBOARD ASSEMBLER, LUTE PACKER OR APPLIER [address] [place] [address] PCP - General Advanced Practice Nurse 02/07/24 Gorge Morel MD [address] [place] [address] PCP - General Infectious Disease 10/15/24 Ramin Angeles DO Consulting Physician Gastroenterology 01/14/16 08/20/24 Lincoln Simpson DPM Podiatry 03/30/22 Bairon Ryan MD [address] [place] [address] Consulting Physician Neurology 09/07/23 Larisa Eisenberg APRN, LUTE PACKER OR APPLIER [address] [address] Nurse Practitioner Advanced Practice Nurse 01/26/24 Elio Monae MD [address] [place] [address] Consulting Physician Pulmonary Disease 06/05/24 documented as of this encounter
--- OUTSIDE RECORDS SUMMARY | 2024-10-23 21:46 | XMS_ITS | Encounter Summary ---
Author Organization [facility] Address [address] [place] [address] Care Team Providers Care General Science Teacher Name Role Phone Kylie Reynolds MD Primary Care Provider Unavail le Encounter Details Date Type Department Care Team (Late st Contact Info) Description 09/28/2001 Outpatient Historical [facility] Family Medicine [place] [id number] [place] [address] [place] [address] [facility] [address] [place] [address] Social History Tobacco Use Types Packs/Day Years Used Date Smoking Tobacco: Never Assessed Comments Unknown Sex and Gender Information Value Date Recorded Sex Assigned at Not on file Legal Sex Female 5:26 AM TRANSPORTATION OFFICER Gender Identity Not on file Sexual Orientation Not on file documented as of this encounter Plan of Treatment Not on file documented as of this encounter Visit Diagnoses Not on filedocumented in this encounter Care Teams General Science Teacher Relationship Specialty Start Date End Date Kylie Reynolds MD NO ADDRESS ON FILE PCP - General 01/23/01 02/25/16 documented as of this encounter
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
--- OUTSIDE RECORDS SUMMARY | 2024-10-23 21:46 | XMS_ITS | Encounter Summary ---
Author Organization [employer] Address [address] [place] [address] Care Team Providers Care Cloth Baler Name Role Phone Kylie Reynolds MD Primary Care Provider Brennan hagan Encounter Details Date Type Department Care Team (Latest Contact Info) Description 07/03/2003 Outpatient Historical [facility] Kylie Gorman MD NO ADDRESS ON FILE ANEMIA NOS (Primary Dx) Social History Tobacco Use Types Packs/Day Years Used Date Smoking Tobacco: Never Assessed Comments Unknown Sex and Gender Information Value Date Recorded Sex Assigned at Not on file Legal Sex Female 5:26 AM FILTER TENDER Gender Identity Not on file Sexual Orientation Not on file documented as of this encounter Plan of Treatment Not on file documented as of this encounter Visit Diagnoses Diagnosis Anemia, unspecified- Primary documented in this encounter Care Teams Cloth Baler Relationship Specialty Start Date End Date Kylie Reynolds MD NO ADDRESS ON FILE PCP - General 01/23/01 02/25/16 documented as of this encounter
--- OUTSIDE RECORDS SUMMARY | 2024-10-23 21:46 | XMS_ITS | Encounter Summary ---
Author Organization [facility] Address [address] [facility] [place] [address] Phone Care Team Providers Care Senior Courtroom Clerk Name Role Phone Ramin Angeles DO Unavailable [phone] Jeniffer Burciaga MD Primary Care Provider [phone] Lizz Mccauley RN Unavailable Unavailable Lincoln Simpson DPM Unavailable Unavailable Provider, None Primary Care Provider Unavailabl e Martín Cuenca MD Primary Care Provider [phone] Bairon Ryan MD Unavailable [phone] Larisa Eisenberg B2B SALES REPRESENTATIVE, CARPENTER FORM Unavailable + [phone] Cynthia Woody B2B SALES REPRESENTATIVE, CARPENTER FORM Primary Care Provider + Elio Monae MD Unavailable Gorge Morel MD Primary Care Provider + [phone] Reason for Visit * Reason Comments Medication Refill Encounter Details Date Type Department Care Team (Late st Contact Info) Description 01/17/2021 Refill [facility] [address] [place] [address] Jeniffer Burciaga MD [address] [place] [address] Medication Refill Social History Tobacco Use Types Packs/Day Years Used Date Smoking Tobacco: Former Cigarettes 1 20 0 09/18/1971 - 09/18/1991 Smokeless Tobacco: Never Alcohol Use Standard Drinks/Week Comments No 0 (1 standard drink = 0.6 oz pur e alcohol) Education Answer Date Recorded What is the [...] have Coronavirus / COVID-19? No / Unsure 01/10/2021 9:35 AM CDT documented as of this encounter Miscellaneous Notes * Telephone Encounter - Laurie Dowling RN - 01/18/2021 1:44 PM CDT Duplicate request documented in this encounter Plan of Treatment Upcoming Encounters Date Type Department Care Team (Late st Contact Info) Description 11/05/2024 1:30 PM SECTION CUTTER Appointment [facility] [address] [place] [address] Ovi Trinidad APRN, CARPENTER FORM [address] [place] [address] Discharge Disposition: Discharged to home or Selfcare 11/13/2024 8:00 AM SECTION CUTTER Procedure Visit [facility] [address] [place] [address] Davion Alicea MD [address] [address] 12/18/2024 10:30 AM CDT Office Visit [facility] [address] [place] [address] Cynthia Woody, B2B SALES REPRESENTATIVE, CARPENTER FORM [address] [place] [address] 03/10/2025 1:00 PM CDT [facility] [address] [place] [address] Gilmar Bond MD [address] [place] [address] Discharge Disposition: Discharged to home or Selfcare documented as of this encounter Visit Diagnoses Not on filedocumented in this encounter Additional Health Concerns Assessment Noted Time PHQ-9 Depression Total Score: 0 04/12/20 18 2:00 PM CDT documented as of this encounter Care Teams Senior Courtroom Clerk Relationship Specialty Start Date End Date Jeniffer Burciaga MD [address] [place] [address] PCP - General Family Medicine 02/10/16 09/06/23 Provider, None [place] PCP - General 09/07/23 10/05/23 Martín Cuenca MD [address] [place] [address] PCP - General Family Medicine 10/06/23 02/05/24 Cynthia Woody, B2B SALES REPRESENTATIVE, CARPENTER FORM [address] [place] [address] PCP - General Advanced Practice Nurse 02/07/24 [place] [address] [place] [address] PCP - General Infectious Disease 10/15/24 Ramin Angeles DO Consulting Physician Gastroenterology 01/14/16 08/20/24 Lizz Mccauley RN [place] Winding Inspector 12/15/21 08/07/22 Lincoln Simpson DPM Podiatry 03/30/22 Bairon Ryan MD [address] [place] [address] Consulting Physician Neurology 09/07/23 Larisa Eisenberg APRN, CARPENTER FORM [address] [facility] [address] [place] [address] Nurse Practitioner Advanced Practice Nurse 01/26/24 Elio Monae MD [address] [place] [address] Consulting Physician Pulmonary Disease 06/05/24 documented as of this encounter
--- OUTSIDE RECORDS SUMMARY | 2024-10-23 21:46 | XMS_ITS | Encounter Summary ---
Author Organization [employer] Address [address] [place] [address] Care Team Providers Care Solution Engineer Name Role Phone Kylie Reynolds MD Primary Care Provider Unavailab hagan Encounter Details Date Type Department Care Team (Latest Contact Info) Description 06/26/2003 Outpatient Historical [facility], [address] Kylie Reynolds MD NO ADDRESS ON FILE SHORTNESS OF BREATH (Primary Dx) Social History Tobacco Use Types Packs/Day Years Used Date Smoking Tobacco: Never Assessed Comments Unknown Sex and Gender Information Value Date Recorded Sex Assigned at Not on file Legal Sex Female 5:26 AM DIRECTOR STUDENT UNION Gender Identity Not on file Sexual Orientation Not on file documented as of this encounter Plan of Treatment Not on file documented as of this encounter Visit Diagnoses Diagnosis Shortness of breath- Primary documented in this encounter Care Teams Solution Engineer Relationship Specialty Start Date End Date Kylie Reynolds MD NO ADDRESS ON FILE PCP - General 01/23/01 02/25/16 documented as of this encounter
--- OUTSIDE RECORDS SUMMARY | 2024-10-23 21:46 | XMS_ITS | Encounter Summary ---
Author Organization [facility] Address [address] [place] [address] Care Team Providers Care Production Roustabout Name Role Phone Kylie Reynolds MD Primary Care Provider Unavailab le Encounter Details Date Type Department Care Team (Late st Contact Info) Description 01/17/2001 Outpatient Historical [facility] Medicine [address] [place] [address] Kylie Reynolds MD NO ADDRESS ON FILE Social History Tobacco Use Types Packs/Day Years Used Date Smoking Tobacco: Never Assessed Comments Unknown Sex and Gender Information Value Date Recorded Sex Assigned at Not on file Legal Sex Female 5:26 AM GEAR NICKER Gender Identity Not on file Sexual Orientation Not on file documented as of this encounter Plan of Treatment Not on file documented as of this encounter Visit Diagnoses Not on filedocumented in this encounter Care Teams Production Roustabout Relationship Specialty Start Date End Date Kylie Reynolds MD NO ADDRESS ON FILE PCP - General 01/23/01 02/25/16 documented as of this encounter
--- OUTSIDE RECORDS SUMMARY | 2024-10-23 21:46 | XMS_ITS | Encounter Summary ---
Author Organization [facility] Address [address] [place] [address] Care Team Providers Care Publications Writer Name Role Phone Kylie Reynolds MD Primary Care Provider Unavailab le Encounter Details Date Type Department Care Team (Late st Contact Info) Description 01/28/2002 Outpatient Historical [facility] Medicine [address] [place] [address] Kylie Reynolds MD NO ADDRESS ON FILE Social History Tobacco Use Types Packs/Day Years Used Date Smoking Tobacco: Never Assessed Comments Unknown Sex and Gender Information Value Date Recorded Sex Assigned at Not on file Legal Sex Female 5:26 AM BAR MACHINE 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
--- OUTSIDE RECORDS SUMMARY | 2024-10-23 21:46 | XMS_ITS | Encounter Summary ---
Author Organization [facility] Address [address] [place] [address] Care Team Providers Care Tool Grinder Name Role Phone Kylie Reynolds MD Primary Care Provider Unavailab le Encounter Details Date Type Department Care Team (Late st Contact Info) Description 09/07/2000 Outpatient Historical [facility] Medicine [address] [place] [address] Kylie Reynolds MD NO ADDRESS ON FILE Social History Tobacco Use Types Packs/Day Years Used Date Smoking Tobacco: Never Assessed Comments Unknown Sex and Gender Information Value Date Recorded Sex Assigned at Not on file Legal Sex Female 5:26 AM GROUP MANAGING DIRECTOR Gender Identity Not on file Sexual Orientation Not on file documented as of this encounter Plan of Treatment Not on file documented as of this encounter Visit Diagnoses Not on filedocumented in this encounter Care Teams Tool Grinder Relationship Specialty Start Date End Date Kylie Reynolds MD NO ADDRESS ON FILE PCP - General 01/23/01 02/25/16 documented as of this encounter
--- OUTSIDE RECORDS SUMMARY | 2024-10-23 21:46 | XMS_ITS | Encounter Summary ---
Author Organization [facility] Address [address] [place] [address] Care Team Providers Care Business Intelligence Analyst Name Role Phone Kylie Reynolds MD Primary Care Provider Unavail le Encounter Details Date Type Department Care Team (Late st Contact Info) Description 01/09/2003 Outpatient Historical [facility] Family [facility] [place] [address] [place] [address] [place] [address] [facility] [address] [place] [address] Social History Tobacco Use Types Packs/Day Years Used Date Smoking Tobacco: Never Assessed Comments Unknown Sex and Gender Information Value Date Recorded Sex Assigned at Not on file Legal Sex Female 5:26 AM COPY PREPARER Gender Identity Not on file Sexual Orientation Not on file documented as of this encounter Plan of Treatment Not on file documented as of this encounter Visit Diagnoses Not on filedocumented in this encounter Care Teams Business Intelligence Analyst Relationship Specialty Start Date End Date Kylie Reynolds MD NO ADDRESS ON FILE PCP - General 01/23/01 02/25/16 documented as of this encounter
--- OUTSIDE RECORDS SUMMARY | 2024-10-23 21:46 | XMS_ITS | Encounter Summary ---
Author Organization [facility] Address [address] [place] [address] Care Team Providers Care Reuse Technician Name Role Phone Kylie Reynolds MD Primary Care Provider Unavail le Encounter Details Date Type Department Care Team (Latest Contact Info) Description 07/03/2003 Outpatient Historical [facility] Kylie Reynolds MD NO ADDRESS ON FILE ANEMIA NOS (Primary Dx) Social History Tobacco Use Types Packs/Day Years Used Date Smoking Tobacco: Never Assessed Comments Unknown Sex and Gender Information Value Date Recorded Sex Assigned at Not on file Legal Sex Female 5:26 AM IMMIGRATION LAWYER Gender Identity Not on file Sexual Orientation Not on file documented as of this encounter Plan of Treatment Not on file documented as of this encounter Visit Diagnoses Diagnosis Anemia, unspecified- Primary documented in this encounter Care Teams Reuse Technician Relationship Specialty Start Date End Date Kylie Reynolds MD NO ADDRESS ON FILE PCP - General 01/23/01 02/25/16 documented as of this encounter
--- OUTSIDE RECORDS SUMMARY | 2024-10-23 21:46 | XMS_ITS | Encounter Summary ---
Author Organization [facility] Address [address] [place] [address] Care Team Providers Care Ship Design Teacher Name Role Phone Kylie Reynolds MD Primary Care Provider Unavailab le Encounter Details Date Type Department Care Team (Late st Contact Info) Description 05/21/2004 Outpatient Historical [facility] Medicine [address] [place] [address] Kylie Reynolds MD NO ADDRESS ON FILE Social History Tobacco Use Types Packs/Day Years Used Date Smoking Tobacco: Never Assessed Comments Unknown Sex and Gender Information Value Date Recorded Sex Assigned at Not on file Legal Sex Female 5:26 AM MANAGER INTERNSHIP Gender Identity Not on file Sexual Orientation Not on file documented as of this encounter Plan of Treatment Not on file documented as of this encounter Visit Diagnoses Not on filedocumented in this encounter Care Teams Ship Design Teacher Relationship Specialty Start Date End Date Kylie Reynolds MD NO ADDRESS ON FILE PCP - General 01/23/01 02/25/16 documented as of this encounter
--- OUTSIDE RECORDS SUMMARY | 2024-10-23 21:46 | XMS_ITS | Encounter Summary ---
Author Organization [facility] Address [address] [place] [address] Phone Care Team Providers Care Tax Processor Name Role Phone Ramin Angeles DO Unavailable [phone] Lincoln Simpson DPM Unavailable Unavailable Martín Cuenca MD Primary Care Provider [phone] Bairon Ryan MD Unavailable [phone] Larisa Eisenberg SPECIAL TESTER, DORMITORY COUNSELOR Unavailable + [phone] Cynthia Woody SPECIAL TESTER, DORMITORY COUNSELOR Primary Care Provider + Elio Monae MD Unavailable Gorge Morel MD Primary Care Provider [phone] Reason for Visit * Reason Comments Medication Refill Encounter Details Date Type Department Care Team (Late st Contact Info) Description 02/01/2024 Refill [facility] [address] [place] [address] Martín Cuenca MD [address] [place] [address] Medication Refill Social History Tobacco Use Types Packs/Day Years Used Date Smoking Tobacco: Former Cigarettes 1 22 0 09/18/1969 - 09/18/1991 Smokeless Tobacco: Never Comments:Stopped smoking 30 years ago Alcohol Use Standard Drinks/Week Comments Never 0 (1 standard drink = 0.6 oz pur e alcohol) 1990 stopped [facility] Utilities Answer Date Recorded In the past 12 months has e electric, gas, oil, or water company threatened to [...] often do you attend chur ch or latter day services? Never 09/30/2023 Do you belong to any clubs o r organizations such as tenriism groups, unions, fraternal or athletic groups, or [...] Total Score - Questions 1-9 0 11/18 [facility] [place] of Occupat ional Health - Occupational Stress [...] place to sleep or slept in a care home (including now)? No 09/30/2023 Education Answer Date [...] Telephone Encounter - Cheryl Story RN - 02/02/2024 1:30 PM CDT Medication(s) refilled and signed per [facility] Chronic Medication Refill Standing Order for Pediatricand Adult Patients. Requested Prescriptions Pending Prescriptions Disp Refills fluticasone (FLONASE) 50 MCG/ACT Suspension [Pharmacy Med Name: FLUTICASONE 50MCG NASAL SP (120) RX] 48 g 1 Sig: SHAKE LIQUID AND USE 1 TO 2 SPRAYS IN EACH NOSTRIL DAILY DIRECTED Nasal Steroids Protocol Passed - 02/01/2024 9:38 PM Passed - Visit with relevant provider in past 12 months or upcoming 90 days Recent Visits Date Type Provider Dept 12/29/23 Office Visit Cynthia Woody APRN, NADIR[facility] 10/06/23 Office Visit Cynthia Woody APRN, NADIR[facility] 05/15/23 Office Visit Jeniffer Burciaga MD [facility] 04/05/23 Office Visit Kylie Chawla, [facility] 03/06/23 Telemedicine Jeniffer Burciaga MD [facility] [place] Showing recent visits within past 365 days and meeting all other requirements Future Appointments Date Type Provider Dept 02/07/24 Appointment Cynthia Woody APRN, NADIRA [facility] [place] 02/07/24 Appointment Cynthia Woody APRN, DORMITORY COUNSELOR [facility] [place] Showing future appointments within next 90 days and meeting all other requirements documented in this encounter Plan of Treatment Upcoming Encounters Date Type Department Care Team (Late st Contact Info) Description 11/05/2024 1:30 PM BEAD SUPERVISOR Appointment [facility] [address] [place] [address] Ovi Trinidad APRN, DORMITORY COUNSELOR [address] [place] [address] Discharge Disposition: Discharged to home or Selfcare 11/13/2024 8:00 AM BEAD SUPERVISOR Procedure Visit [facility] [address] [place] [address] Davion Alicea MD [address] [address] 12/18/2024 10:30 AM CDT [facility] [address] [place] [address] Cynthia Woody, SPECIAL TESTER, DORMITORY COUNSELOR [address] [place] [address] 03/10/2025 1:00 PM CDT [facility] [address] [place] [address] Gilmar Bond MD [address] [place] [address] Discharge Disposition: Discharged to home or Selfcare documented as of this encounter Visit Diagnoses Diagnosis Rhinitis, unspecified type documented in this encounter Additional Health Concerns Assessment Noted Time PHQ-9 Depression Total Score: 0 04/12/20 18 2:00 PM CDT documented as of this encounter Care Teams Tax Processor Relationship Specialty Start Date End Date Martín Cuenca MD [address] [place] [address] PCP - General Family Medicine 10/06/23 02/05/24 Cynthia Woody APRN, DORMITORY COUNSELOR [address] [place] [address] PCP - General Advanced Practice Nurse 02/07/24 Gorge Morel MD [address] [place] [address] PCP - General Infectious Disease 10/15/24 Ramin Angeles DO Consulting Physician Gastroenterology 01/14/16 08/20/24 Lincoln Simpson DPM Podiatry 03/30/22 Bairon Ryan MD [address] [place] [address] Consulting Physician Neurology 09/07/23 Larisa Eisenberg APRN, DORMITORY COUNSELOR [address] [address] Nurse Practitioner Advanced Practice Nurse 01/26/24 Elio Monae MD [address] [place] [address] Consulting Physician Pulmonary Disease 06/05/24 documented as of this encounter
--- OUTSIDE RECORDS SUMMARY | 2024-10-23 21:46 | XMS_ITS | Encounter Summary ---
Author Organization [facility] Address [address] [place] [address] Care Team Providers Care Surface Ship Usw Supervisor Name Role Phone Kylie Reynolds MD Primary Care Provider Unavailab le Encounter Details Date Type Department Care Team (Late st Contact Info) Description 07/24/2003 Outpatient Historical [facility] Medicine [address] [place] [address] Kylie Reynolds MD NO ADDRESS ON FILE Social History Tobacco Use Types Packs/Day Years Used Date Smoking Tobacco: Never Assessed Comments Unknown Sex and Gender Information Value Date Recorded Sex Assigned at Not on file Legal Sex Female 5:26 AM DIRECTOR BUSINESS INTEGRATION Gender Identity Not on file Sexual Orientation Not on file documented as of this encounter Plan of Treatment Not on file documented as of this encounter Visit Diagnoses Not on filedocumented in this encounter Care Teams Surface Ship Usw Supervisor Relationship Specialty Start Date End Date Kylie Reynolds MD NO ADDRESS ON FILE PCP - General 01/23/01 02/25/16 documented as of this encounter
--- OUTSIDE RECORDS SUMMARY | 2024-10-23 21:46 | XMS_ITS | Encounter Summary ---
Author Organization [facility] Address [address] [facility] [place] [address] Phone Care Team Providers Care Shock Absorber Installer Name Role Phone Ramin Angeles DO Unavailable [phone] Lincoln Simpson DPM Unavailable Unavailable Bairon Ryan MD Unavailable [phone] Larisa Eisenberg CARDIO CLINICIAN, PROJECT LEAD Unavailable + [phone] Cynthia Woody CARDIO CLINICIAN, PROJECT LEAD Primary Care Provider + Elio Monae MD Unavailable Gorge Morel MD Primary Care Provider + [phone] Reason for Visit * Reason Comments Medication Refill Encounter Details Date Type Department Care Team (Late st Contact Info) Description 02/18/2024 Refill [facility] - [place] [address] [place] [address] Kylie Chawla PAC [address] [place] [address] Medication Refill Social History Tobacco Use Types Packs/Day Years Used Date Smoking Tobacco: Former Cigarettes 1 22 0 09/18/1969 - 09/18/1991 Smokeless Tobacco: Never Comments:Stopped smoking 30 years ago Alcohol Use Standard Drinks/Week Comments Never 0 (1 standard drink = 0.6 oz pur e alcohol) 1990 stopped [facility] Utilities Answer Date Recorded In the [...] often do you attend chur ch or religion services? Never 09/30/2023 Do you belong to any clubs o r organizations such as confucianism groups, unions, fraternal or athletic groups, or [...] Total Score - Questions 1-9 0 11/18 [facility] [place] of Occupat ional Health - Occupational Stress [...] place to sleep or slept in a penitentiary (including now)? No 09/30/2023 Education Answer Date [...] encounter Miscellaneous Notes * Telephone Encounter - Julee Lanza RN - 02/18/2024 12:44 PM CDT Medication(s) refilled and signed per [facility] Chronic Medication Refill Standing Order for Pediatricand Adult Patients. Requested Prescriptions Pending Prescriptions Disp Refills amLODIPine (NORVASC) 5 MG Tablet [Pharmacy Med Name: amLODIPine Besylate 5 MG Oral Tablet] 200 Tablet 2 Sig: TAKE 2 TABLETS BY MOUTH DAILY Calcium-Channel Blockers Protocol Passed - 02/18/2024 3:35 AM Passed - BP on record in the past year Clinician-entered: BP Readings from Last 3 Encounters: 02/07/24 116/70 12/29/23 134/70 10/06/23 130/72 Patient-entered: No data recorded Passed - Visit with relevant provider in past 12 months or upcoming 90 days Recent Visits Date Type Provider Dept 02/07/24 Office Visit Cynthia Woody APRN, NADIRA [facility] 12/29/23 Office Visit Cynthia Woody APRN, NADIRA [facility] 10/06/23 Office Visit Cynthia Woody APRN, NADIRA [facility] 05/15/23 Office Visit Jeniffer Burciaga MD [facility] 04/05/23 Office Visit Kylie Chawla [facility] 03/06/23 Telemedicine Jeniffer Burcigaa MD [facility] Showing recent visits within past 365 days and meeting all other requirements Future Appointments Date Type Provider Dept 03/11/24 Appointment Cynthia Woody APRN, NADIRA [facility] [place] future appointments within next 90 days and meeting all other requirements documented in this encounter Plan of Treatment Upcoming Encounters Date Type Department Care Team (Late st Contact Info) Description 11/05/2024 1:30 PM SHOP STEWARD Appointment [facility] [address] [place] [address] Ovi Trinidad APRN, PROJECT LEAD [address] [place] [address] Discharge Disposition: Discharged to home or Selfcare 11/13/2024 8:00 AM SHOP STEWARD Procedure Visit [facility] [address] [place] [address] Davion Alicea MD [address] [address] 12/18/2024 10:30 AM CDT Office Visit [facility] [address] [place] [address] Cynthia Woody, CARDIO CLINICIAN, PROJECT LEAD [address] [place] [address] 03/10/2025 1:00 PM CDT [facility] [address] [place] [phone] Gilmar Bond MD [address] [place] [address] Discharge Disposition: Discharged to home or Selfcare documented as of this encounter Visit Diagnoses Not on filedocumented in this encounter Additional Health Concerns Assessment Noted Time PHQ-9 Depression Total Score: 0 04/12/20 18 2:00 PM CDT documented as of this encounter Care Teams Shock Absorber Installer Relationship Specialty Start Date End Date Cynthia Woody, CARDIO CLINICIAN, PROJECT LEAD [address] [place] [address] PCP - General Advanced Practice Nurse 02/07/24 Gorge Morel MD [address] [place] [address] PCP - General Infectious Disease 10/15/24 Ramin Angeles DO Consulting Physician Gastroenterology 01/14/16 08/20/24 Lincoln Simpson DPM Podiatry 03/30/22 Bairon Ryan MD [address] [place] [address] Consulting Physician Neurology 09/07/23 Larisa Eisenberg APRN, PROJECT LEAD [address] [id number] Nurse Practitioner Advanced Practice Nurse 01/26/24 Elio Monae MD [address] [place] [address] Consulting Physician Pulmonary Disease 06/05/24 documented as of this encounter
--- OUTSIDE RECORDS SUMMARY | 2024-10-23 21:46 | XMS_ITS | Encounter Summary ---
Author Organization [facility] Address [address] [place] [address] Care Team Providers Care Nuclear Radiologist Name Role Phone Kylie Reynolds MD Primary Care Provider Unavailab le Encounter Details Date Type Department Care Team (Late st Contact Info) Description 06/17/[address] [facility] Medicine [address] [place] [address] Kylie Reynolds MD NO ADDRESS ON FILE Social History Tobacco Use Types Packs/Day Years Used Date Smoking Tobacco: Never Assessed Comments Unknown Sex and Gender Information Value Date Recorded Sex Assigned at Not on file Legal Sex Female 5:26 AM MORTGAGE SERVICING SPECIALIST Gender Identity Not on file Sexual Orientation Not on file documented as of this encounter Plan of Treatment Not on file documented as of this encounter Visit Diagnoses Not on filedocumented in this encounter Care Teams Nuclear Radiologist Relationship Specialty Start Date End Date Kylie Reynolds MD NO ADDRESS ON FILE PCP - General 01/23/01 02/25/16 documented as of this encounter
--- OUTSIDE RECORDS SUMMARY | 2024-10-23 21:46 | XMS_ITS | Encounter Summary ---
Author Organization [facility] Address [address] [place] [address] Care Team Providers Care Suspect Artist Name Role Phone Kylie Reynolds MD Primary Care Provider Unavailab le Encounter Details Date Type Department Care Team (Late st Contact Info) Description 02/04/2005 Outpatient Historical [facility] Medicine [address] [place] [address] Kylie Reynolds MD NO ADDRESS ON FILE Social History Tobacco Use Types Packs/Day Years Used Date Smoking Tobacco: Never Assessed Comments Unknown Sex and Gender Information Value Date Recorded Sex Assigned at Not on file Legal Sex Female 5:26 AM SEARCH AND RESCUE OFFICER Gender Identity Not on file Sexual Orientation Not on file documented as of this encounter Plan of Treatment Not on file documented as of this encounter Visit Diagnoses Not on filedocumented in this encounter Care Teams Suspect Artist Relationship Specialty Start Date End Date Kylie Reynolds MD NO ADDRESS ON FILE PCP - General 01/23/01 02/25/16 documented as of this encounter
--- OUTSIDE RECORDS SUMMARY | 2024-10-23 21:46 | XMS_ITS | Encounter Summary ---
Author Organization [facility] Address [address] [facility] [place] [address] Phone Care Team Providers Care Steam Table Attendant Name Role Phone Ramin Angeles DO Unavailable [phone] Lincoln Simpson DPM Unavailable Unavailable Bairon Ryan MD Unavailable [phone] Larisa Eisenberg PERIANESTHESIA RN, PHLEBOTOMY MANAGER Unavailable + [phone] Cynthia Woody PERIANESTHESIA RN, PHLEBOTOMY MANAGER Primary Care Provider + Elio Monae MD Unavailable Gorge Morel MD Primary Care Provider Reason for Visit * Reason Comments Medication Refill Encounter Details Date Type Department Care Team (Late st Contact Info) Description 02/22/2024 [facility]ill [facility] [place] [address] [place] [address] Cynthia Woody, PERIANESTHESIA RN, PHLEBOTOMY MANAGER [address] [place] [address] Medication Refill Social History Tobacco Use Types Packs/Day Years Used Date Smoking Tobacco: Former Cigarettes 1 22 0 09/18/1969 - 09/18/1991 Smokeless Tobacco: Never Comments:Stopped smoking 30 years ago Alcohol Use Standard Drinks/Week Comments Never 0 (1 standard drink = 0.6 oz pur e alcohol) 1990 stopped [facility] Utilities Answer Date Recorded In the past [...] often do you attend chur ch or denominational services? Never 09/30/2023 Do you belong to any clubs o r organizations such as gnosticist groups, unions, fraternal or athletic groups, or [...] Total Score - Questions 1-9 0 11/18 [facility] [place] of Occupat ional Health - Occupational Stress [...] place to sleep or slept in a fci (including now)? No 09/30/2023 Education Answer Date [...] Telephone Encounter - Cheryl Story RN - 02/22/2024 11:47 AM CDT Medication(s) refilled and signed per [facility] Chronic Medication Refill Standing Order for Pediatricand Adult Patients. Requested Prescriptions Pending Prescriptions Disp Refills lisinopril (PRINIVIL, ZESTRIL) 40 MG Tablet [Pharmacy Med Name: Lisinopril 40 MG Oral Tablet] 100 Tablet 1 Sig: TAKE 1 TABLET BY MOUTH DAILY MARILOU Inhibitors Protocol Passed - 02/22/2024 10:35 AM Passed - Serum potassium on record in past 12 months POTASSIUM Date Value Ref Range Status 10/06/2023 4.4 3.5 - 5.1 mmol/L Final Passed - Blood pressure on record in past 12 months Clinician-entered: BP Readings from Last 3 Encounters: 02/07/24 116/70 12/29/23 134/70 10/06/23 130/72 Patient-entered: No data recorded Passed - Visit with relevant provider in past 12 months or upcoming 90 days Recent Visits Date Type Provider Dept 02/07/24 Office Visit Cynthia Woody APRN, CNP [facility] [place] 12/29/23 Office Visit Cynthia Woody APRN, CNP [facility] [place] 10/06/23 Office Visit Cynthia Woody APRN, CNP [facility] [place] 05/15/23 Office Visit Jeniffer Burciaga MD [facility] 04/05/23 Office Visit Kylie Chawla PAC [facility] [place] 03/06/23 Telemedicine Jeniffer Burciaga MD [facility] [place] Showing recent visits within past 365 days and meeting all other requirements Future Appointments Date Type Provider Dept 03/11/24 Appointment Cynthia Woody APRN, CNP [facility] Showing future appointments within next 90 days and meeting all other requirements Passed - GFR on record in past 12 months GFR, EST. NONAFRICAN Date Value Ref Range Status 10/06/2023 >60 >=60 Final documented in this encounter Plan of Treatment Upcoming Encounters Date Type Department Care Team (Late st Contact Info) Description 11/05/2024 1:30 PM IS ANALYST Appointment [facility] [address] [place] [address] Ovi Trinidad APRN, PHLEBOTOMY MANAGER [address] [place] [address] Discharge Disposition: Discharged to home or Selfcare 11/13/2024 8:00 AM IS ANALYST Procedure Visit [facility] [address] [place] [phone] Davion Alicea MD [address] [phone] 12/18/2024 10:30 AM CDT [facility] Visit [facility] [address] [place] [address] Cynthia Woody APRN, PHLEBOTOMY MANAGER [address] [place] [address] 03/10/2025 1:00 PM CDT [facility] [address] [place] [phone] Gilmar Bond MD [address] [place] [address] Discharge Disposition: Discharged to home or Selfcare documented as of this encounter Visit Diagnoses Diagnosis Essential (primary) hypertension Unspecified essential hypertension documented in this encounter Additional Health Concerns Assessment Noted Time PHQ-9 Depression Total Score: 0 04/12/20 18 2:00 PM CDT documented as of this encounter Care Teams Steam Table Attendant Relationship Specialty Start Date End Date Cynthia Woody, PERIANESTHESIA RN, PHLEBOTOMY MANAGER [address] [place] [address] PCP - General Advanced Practice Nurse 02/07/24 Gorge Morel MD [address] [place] [address] PCP - General Infectious Disease 10/15/24 Ramin Angeles DO Consulting Physician Gastroenterology 01/14/16 08/20/24 Lincoln Simpson DPM Podiatry 03/30/22 Bairon Ryan MD [address] [place] [address] Consulting Physician Neurology 09/07/23 Larisa Eisenberg APRN, PHLEBOTOMY MANAGER #2 [facility] [address] [place], [place] [id number] Nurse Practitioner Advanced Practice Nurse 01/26/24 Elio Monae MD [address] [place] [address] Consulting Physician Pulmonary Disease 06/05/24 documented as of this encounter
--- OUTSIDE RECORDS SUMMARY | 2024-10-23 21:46 | XMS_ITS | Encounter Summary ---
Author Organization [email or web address] Address [address] [place] [address] Care Team Providers Care Senior Embedded Software Engineer Name Role Phone Kylie Reynolds MD Primary Care Provider Brennan hagan Encounter Details Date Type Department Care Team (Latest Contact Info) Description 12/31/2003 Outpatient Historical [facility] [address], Ronnie Yi MD NO ADDRESS ON FILE ABNORMAL LIVER FUNCTION STUDY (Primary Dx) Social History Tobacco Use Types Packs/Day Years Used Date Smoking Tobacco: Never Assessed Comments Unknown Sex and Gender Information Value Date Recorded Sex Assigned at Not on file Legal Sex Female 5:26 AM MICA 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
--- OUTSIDE RECORDS SUMMARY | 2024-10-23 21:46 | XMS_ITS | Encounter Summary ---
Author Organization [facility] Address [address] [place] [address] Care Team Providers Care Family Consumer Scientist Name Role Phone Kylie Reynolds MD Primary Care Provider Unavailab le Encounter Details Date Type Department Care Team (Late st Contact Info) Description 09/07/2000 Outpatient Historical [facility] Medicine [address] [place] [address] Kylie Reynolds MD NO ADDRESS ON FILE Social History Tobacco Use Types Packs/Day Years Used Date Smoking Tobacco: Never Assessed Comments Unknown Sex and Gender Information Value Date Recorded Sex Assigned at Not on file Legal Sex Female 5:26 AM MANAGER FREELANCE Gender Identity Not on file Sexual Orientation Not on file documented as of this encounter Plan of Treatment Not on file documented as of this encounter Visit Diagnoses Not on filedocumented in this encounter Care Teams Family Consumer Scientist Relationship Specialty Start Date End Date Kylie Reynolds MD NO ADDRESS ON FILE PCP - General 01/23/01 02/25/16 documented as of this encounter
--- OUTSIDE RECORDS SUMMARY | 2024-10-23 21:46 | XMS_ITS | Encounter Summary ---
Author Organization [employer] Address [address] [place] [address] Care Team Providers Care Procurement Analyst Name Role Phone Kylie Reynolds MD Primary Care Provider Brennan hagan Encounter Details Date Type Department Care Team (Late st Contact Info) Description 07/31/2003 Outpatient Historical [facility] Kylie Reynolds MD NO ADDRESS ON FILE ABN BLOOD CHEMISTRY NEC (Primary Dx) Social History Tobacco Use Types Packs/Day Years Used Date Smoking Tobacco: Never Assessed Comments Unknown Sex and Gender Information Value Date Recorded Sex Assigned at Not on file Legal Sex Female 5:26 AM SENIOR PAYROLL ADMINISTRATOR Gender Identity Not on file Sexual Orientation Not on file documented as of this encounter Plan of Treatment Not on file documented as of this encounter Visit Diagnoses Diagnosis Other abnormal blood chemistry- Primary documented in this encounter Care Teams Procurement Analyst Relationship Specialty Start Date End Date Kylie Reynolds MD NO ADDRESS ON FILE PCP - General 01/23/01 02/25/16 documented as of this encounter
--- OUTSIDE RECORDS SUMMARY | 2024-10-23 21:46 | XMS_ITS | Encounter Summary ---
Author Organization [facility] Address [address] [place] [address] Care Team Providers Care School Boat Driver Name Role Phone Kylie Reynolds MD Primary Care Provider Unavailab le Encounter Details Date Type Department Care Team (Late st Contact Info) Description 02/17/2003 Outpatient Historical [facility] Medicine [address] [place] [address] Kylie Reynolds MD NO ADDRESS ON FILE Social History Tobacco Use Types Packs/Day Years Used Date Smoking Tobacco: Never Assessed Comments Unknown Sex and Gender Information Value Date Recorded Sex Assigned at Not on file Legal Sex Female 5:26 AM REPLACER Gender Identity Not on file Sexual Orientation Not on file documented as of this encounter Plan of Treatment Not on file documented as of this encounter Visit Diagnoses Not on filedocumented in this encounter Care Teams School Boat Driver Relationship Specialty Start Date End Date Kylie Reynolds MD NO ADDRESS ON FILE PCP - General 01/23/01 02/25/16 documented as of this encounter
--- OUTSIDE RECORDS SUMMARY | 2024-10-23 21:46 | XMS_ITS | Encounter Summary ---
Author Organization [employer] Address [address] [place] [address] Care Team Providers Care Kitchen Utility Associate Name Role Phone Kylie Reynolds MD Primary Care Provider Brennan le Encounter Details Date Type Department Care Team (Late st Contact Info) Description 08/26/2003 Outpatient Historical [facility] Ronnie Lane MD NO ADDRESS ON FILE OVARIAN CYST NEC/NOS (Primary Dx) Social History Tobacco Use Types Packs/Day Years Used Date Smoking Tobacco: Never Assessed Comments Unknown Sex and Gender Information Value Date Recorded Sex Assigned at Not on file Legal Sex Female 5:26 AM FIXER SUPERVISOR Gender Identity Not on file Sexual Orientation Not on file documented as of this encounter Plan of Treatment Not on file documented as of this encounter Visit Diagnoses Diagnosis Other and unspecified ovarian cyst- Primary documented in this encounter Care Teams Kitchen Utility Associate Relationship Specialty Start Date End Date Kylie Reynolds MD NO ADDRESS ON FILE PCP - General 01/23/01 02/25/16 documented as of this encounter
--- OUTSIDE RECORDS SUMMARY | 2024-10-23 21:46 | XMS_ITS | Encounter Summary ---
Author Organization [employer] Address [address] [place] [address] Care Team Providers Care Sr. Payroll Manager Name Role Phone Kylie Reynolds MD Primary Care Provider Brennan hagan Encounter Details Date Type Department Care Team (Latest Contact Info) Description 07/11/2003 Outpatient Historical [facility] Kylie Gorman MD NO ADDRESS ON FILE ANEMIA NOS (Primary Dx) Social History Tobacco Use Types Packs/Day Years Used Date Smoking Tobacco: Never Assessed Comments Unknown Sex and Gender Information Value Date Recorded Sex Assigned at Not on file Legal Sex Female 5:26 AM BUSINESS INVESTOR Gender Identity Not on file Sexual Orientation Not on file documented as of this encounter Plan of Treatment Not on file documented as of this encounter Visit Diagnoses Diagnosis Anemia, unspecified- Primary documented in this encounter Care Teams Sr. Payroll Manager Relationship Specialty Start Date End Date Kylie Reynolds MD NO ADDRESS ON FILE PCP - General 01/23/01 02/25/16 documented as of this encounter
--- OUTSIDE RECORDS SUMMARY | 2024-10-23 21:46 | XMS_ITS | Encounter Summary ---
Author Organization [email or web address] Address [address] [place] [address] Care Team Providers Care Database Architect Name Role Phone Kylie Reynolds MD Primary Care Provider Unavailab le Encounter Details Date Type Department Care Team (Late st Contact Info) Description 02/02/2001 Outpatient Historical [facility] Dontrell Flor MD [address] [address] Social History Tobacco Use Types Packs/Day Years Used Date Smoking Tobacco: Never Assessed Comments Unknown Sex and Gender Information Value Date Recorded Sex Assigned at Not on file Legal Sex Female 5:26 AM WILDLIFE REMOVAL 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
--- OUTSIDE RECORDS SUMMARY | 2024-10-23 21:46 | XMS_ITS | Encounter Summary ---
Author Organization [facility] Address [address] [facility] [place] [address] Phone Care Team Providers Care Pai Gow Dealer Name Role Phone Ramin Angeles DO Unavailable [phone] Lincoln Simpson DPM Unavailable Unavailable Martín Cuenca MD Primary Care Provider [phone] Bairon Ryan MD Unavailable [phone] Larisa Eisenberg MATH AND SCIENCE INSTRUCTOR, REPORTER ANCHOR Unavailable + [phone] Cynthia Woody MATH AND SCIENCE INSTRUCTOR, REPORTER ANCHOR Primary Care Provider + Elio Monae MD Unavailable Gorge Morel MD Primary Care Provider + [phone] Reason for Visit * Reason Comments Medication Refill Encounter Details Date Type Department Care Team (Late st Contact Info) Description 11/24/2023 Refill [facility] - [place] [address] [place] [address] Estuardo Lam MD [address] [place] [address] [address] Medication Refill Social History Tobacco Use Types Packs/Day Years Used Date Smoking Tobacco: Former Cigarettes 1 22 0 09/18/1969 - 09/18/1991 Smokeless Tobacco: Never Comments:Stopped smoking 30 years ago Alcohol Use Standard Drinks/Week Comments Never 0 (1 standard drink = 0.6 oz pur e alcohol) 1990 stopped [facility] Utilities Answer Date Recorded In the [...] often do you attend chur ch or baptism services? Never 09/30/2023 Do you belong to any clubs o r organizations such as methodist groups, unions, fraternal or athletic groups, or [...] Total Score - Questions 1-9 0 11/18 [facility] of Occupat ional Health - Occupational Stress [...] place to sleep or slept in a senior care (including now)? No 09/30/2023 Education Answer Date [...] Telephone Encounter - Cheryl Story RN - 11/24/2023 11:28 AM CST Name from pharmacy: GABAPENTIN CAP 300MG (NEUR) Will file in chart as: gabapentin (NEURONTIN) 300 MG Capsule The original prescription was discontinued on 10/06/2023 by Cynthia Woody, MATH AND SCIENCE INSTRUCTOR, REPORTER ANCHOR R LEAGUE BASEBALL PLAYER documented in this encounter Plan of Treatment Upcoming Encounters Date Type Department Care Team (Late st Contact Info) Description 11/05/2024 1:30 PM MAJOR LEAGUE BASEBALL PLAYER [facility] [address] [place] [id number] Ovi Trinidad APRN, REPORTER ANCHOR [address] [place] [address] Discharge Disposition: Discharged to home or Selfcare 11/13/2024 8:00 AM MAJOR LEAGUE BASEBALL PLAYER Procedure Visit [facility] #[address] [place] [address] Davion Alicea MD #[address] [address] 12/18/2024 10:30 AM CDT Office Visit [facility] [address] [place] [address] Cynthia Woody, MATH AND SCIENCE INSTRUCTOR, REPORTER ANCHOR [address] [place] [address] 03/10/2025 1:00 PM CDT [facility] [address] [place] [address] Gilmar Bond MD [address] [place] [address] Discharge Disposition: Discharged to home or Selfcare documented as of this encounter Visit Diagnoses Not on filedocumented in this encounter Additional Health Concerns Assessment Noted Time PHQ-9 Depression Total Score: 0 04/12/20 18 2:00 PM CDT documented as of this encounter Care Teams Pai Gow Dealer Relationship Specialty Start Date End Date Martín Cuenca MD [address] [facility] [place] [address] PCP - General Family Medicine 10/06/23 02/05/24 Cynthia Woody, MATH AND SCIENCE INSTRUCTOR, REPORTER ANCHOR [address] [place] [address] PCP - General Advanced Practice Nurse 02/07/24 Gorge Morel [place] [place] [address] PCP - General Infectious Disease 10/15/24 Ramin Angeles DO Consulting Physician Gastroenterology 01/14/16 08/20/24 Lincoln Simpson DPM Podiatry 03/30/22 Bairon Ryan MD [address] [place] [address] Consulting Physician Neurology 09/07/23 Larisa Eisenberg APRN, REPORTER ANCHOR #2 [facility]S [facility] [address] [place] [address] Nurse Practitioner Advanced Practice Nurse 01/26/24 Elio Monae MD [address] [place] [address] Consulting Physician Pulmonary Disease 06/05/24 documented as of this encounter
--- OUTSIDE RECORDS SUMMARY | 2024-10-23 21:46 | XMS_ITS | Referral Summary ---
Author Organization [facility] Address [address] [place] [address] Care Team Providers Care Stripper Cutter Machine Name Role Phone Martín Cuenca MD Primary Care Provider [phone] Encounters Date Type Department Care Team Description 09/02/2024 9:45 AM COMMUNITY AIDE Office Visit [facility] [address] [facility] [address] [place] [address] Christina Wheat MD MCKENNA (obstructive sleep apnea) (Primary Dx); Idiopathic hypersomnia without long sleep time 08/02/2024 8:48 AM COMMUNITY AIDE - 08/02/2024 11:59 PM COMMUNITY AIDE Hospital Encounter [facility] [address] [facility] [address], 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 nursing home (current) use of opiate analgesic 02/16 Acute pain due to trauma 01/26/2022 Closed fracture of left olecranon process 2021 Overview (01/25/2022): Added automatically from request for surgery [id number] Closed head injury 01/25/2022 Closed head injury, [...] 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 Spondylolisthesis of lumbosacral region 12/02/19 Closed fracture of right olecranon process 10/04 Overview (10/04/2021): Added automatically from request for surgery [id number] Trigger ring finger of right hand 11/07/2019 ADD (attention deficit disorder) 02/10/2016 Bipolar disorder, in full re mission, most recent episode mixed ([facility]) 02/10/2016 Dyslipidemia 02/10/2016 Hypersomnia with sleep apnea [...] Overview (12/22/2016): Pathologic fracture Legally induced 05/10/200504/2024 Immunizations Name Administration Dates Next Due Influenza, Quadrivalent, Spl it, Intramuscular 06/08/2015 Influenza, Quadrivalent, Spl it, Preservative Free, Intramuscular 06/01/2022,06/09/2021,07/12/2018,05/29 Influenza, Trivalent, High D ose, Split, Preservative Free, Intramuscular 10/10/2019 Influenza, Trivalent, IM (MDV) 07/18/2016,2014,06/18/2014 Influenza, Trivalent, Preser vative Free, Intramuscular 06/01/2020,10/10/2019,07/17/2016 Pneumococcal Conjugate PCV 13 04/11/2017 Pneumococcal Polysaccharide PPV23 10/28/2019 Td, adsorbed 02/16/2003 Tdap 01/14/2022, 0,05/02/2019,09/18 ZOSTER LIVE 04/12/2017 ZOSTER Recombinant 05/31/2019,02/21/2019 Social History Tobacco Use Types Packs/Day Years Used Date Smoking Tobacco: Former Cigarettes 1 22 1 970 - 1992 Smokeless Tobacco: Never Tobacco Cessation:Counseling Given: Not [...] on file Legal Sex Female 5:29 PM COMMUNITY AIDE Gender Identity Female 10/19/2020 7:50 AM COMMUNITY AIDE Sexual Orientation Straight 10/19/2020 7: 50 AM COMMUNITY AIDE Occupation Industry Job Start Date Job End Date Retired Not on file Not on file Not on file Last Filed Vital Signs Vital Sign Reading Time Taken Comments Blood Pressure 126/75 09/02/2024 9:56 AM COMMUNITY AIDE Pulse 66 09/02/2024 9:56 AM COMMUNITY AIDE Temperature 37.1 C (98.7 F) 02/08/2022 11:01 AM CDT Respiratory Rate 18 08/02/2024 9:30 AM COMMUNITY AIDE Oxygen Saturation 100% 09/02/2024 9:56 AM COMMUNITY AIDE Inhaled Oxygen Concentration - - Weight 71.2 kg (157 lb) 09/02/2024 9:56 AM COMMUNITY AIDE Height 160 cm (5' 3 ) 09/02/2024 9:56 AM COMMUNITY AIDE Body Mass Index 27.81 09/02/2024 9:56 AM COMMUNITY AIDE Plan of Treatment Not on file Goals Goal Patient Goal Type Associated Problems Recent Progress Patient-Stated? Author [facility] On track( 024 10:45 AM COMMUNITY AIDE) Miles Majano, RN Note: Walking, sitting, sleeping, moving about with minimal to no pain. Medical Devices Implanted Type Area Hard Metals Engraver Hand Device Identifier Shelf Expiration Date Model / Serial / Lot Right 3 Hole Plate [id number] Implanted:Qty: 1 on 10/05/2021 by Luis Daniel Beverly MD at [facility] Plate Right: [employer] 70-0303 / N/A / Description:[facility] item# [id number] Per Crowdx lite dashboard is active Cost ea. 892.00 Charge code assigned [id number] Synthes Plate Bone Lcp Titanium L66 Mm 7 Hole Shaft Low Profile Cut To Length Nonsterile 2.7 Mm Screw Modular Mini Fragment System 449.684 - [id number] Implanted:Qty: 1 on 01/26/2022 by Deana Lacey MD at [facility] Plate Left: Arm Synthes I 449.684 / / 3.5 X 24 Lock 30 Implanted:Qty: 1 on 10/05/2021 by Luis Daniel Beverly MD at [facility] Screw Right: Reed Perkins / N/A / Description:[facility] ITEM# [id number] IS ACTIVE PER ReflexS LITE DASHBOARD COST EA. 111.00 CHARGE CODE ASSIGNED [id number] Acumed Inc 3mm 50mm Locking Hexalobe Elbow Screw Bone Nonsterile - [id number] Implanted:Qty: 1 on 10/05/2021 by Luis Daniel Beverly MD at [facility] Screw Right: [employer] / / Synthes Lcp 2.7mm 46mm Self Tap Stardrive Radius Cortical Distal T8 Screw 402.965 - [id number] Implanted:Qty: 1 on 01/26/2022 by Deana Lacey MD at [facility] Screw Left: Arm Synthes I 402.965 / / Synthes Screw Bone Titanium Full Thread L32 Mm W2.5 Mm Od2.7 Mm Odsec5 Mm Cortex Self Tap Small Hexagonal Socket Spherical Head Nonsterile Mini Fragment Set 402.892 - [id number] Implanted:Qty: 1 on 01/26/2022 by Deana Lacey MD at [facility] Screw Left: Arm Synthes I 402.892 / / Synthes Screw Bone 2.7mm 34mm Lcp Ti Darius Selftap Nonstrl Mini Frag 402.894 - [id number] Implanted:Qty: 1 on 01/26/2022 by Deana Lacey MD at [facility] Screw Left: Arm Synthes I 402.894 / / Synthes Lcp 2.7mm 24mm T8 Stardrive Recess Self Tapping Radius Cortical 402.884 - [id number] Implanted:Qty: 1 on 01/26/2022 by Deana Lacey MD at [facility] Screw Left: Arm Synthes I 402.884 / / Synthes 2.4mm 4mm 20mm Self Tap Self Retain Stardrive Low Profile Cortex 401.770 - [id number] Implanted:Qty: 1 on 01/26/2022 by Deana Lacey MD at [facility] Screw Left: Arm Synthes I 401.770 / / Synthes Lcp 2.7mm 30mm T8 Stardrive Self Tap Radius Cortex Distal Screw 402.890 - [id number] Implanted:Qty: 1 on 01/26/2022 by Deana Lacey MD at [facility] Screw Left: Forearm Synthes I 402.89 0 / / 3.5x 20 Nonlocking Screw [id number] Implanted:Qty: 1 on 10/05/2021 by Luis Daniel Beverly MD at [facility] Right: Olecranon [employer] Inc 30-261 / N/A / Description:[facility] ITEM#[id number] IS ACTIVE PER Ubix LabsE DASHBOARD COST EA. 68.00 EA CHARGE CODE ASSIGNED [id number] Acumed Inc 30-0327 2.7mm 14mm Locking Hexalobe Elbow Screw Bone Nonsterile - [id number] Implanted:Qty: 2 on 10/05/2021 by Luis Daniel Beverly MD at [facility] Right: Olecranon [employer] Inc 30-0327 / / Acumed Inc 30-0328 2.7mm 16mm Lock Hexalobe Screw Bone Titanium Nonsterile Small - [id number] Implanted:Qty: 2 on 10/05/2021 by Luis Daniel Beverly MD at [facility] Right: Olecranon [employer] Inc 30-0328 / / Acumed Inc [id number] 3.5mm 20mm Locking Hexalobe Elbow Screw Bone Nonsterile - [id number] Implanted:Qty: 1 on 10/05/2021 by Luis Daniel Beverly MD at [facility] Right: Olecranon [employer] Inc [id number] / / 2.5 X 20mm Non Locking Screw Implanted:Qty: 1 on 10/05/2021 by Luis Daniel Beverly MD at [facility] Right: Olecranon [employer] Inc 30 / N/A / Description:[facility] ITEM# [id number] IS ACTIVE PER ReflexS LITE DASHBOARD COST EA. 68.00 CHARGE CODE ASSIGNED [id number] Synthes Screw Bone 2.7mm 55mm Lcp Ti Darius Selftap Nonstrl Mini Frag 402.968 - [id number] Implanted:Qty: 1 on 01/26/2022 by Deana Lacey MD at [facility] Left: Forearm Synthes I 402.96 8 / / Synthes Lcp 2.4mm 4mm 22mm Self Tap Stardrive Humerus Radius Cortical 401.772 - [id number] Implanted:Qty: 2 on 01/26/2022 by Deana Lacey MD at [facility] Synthes I 401.772 / / Synthes Lcp 2.4mm 28mm Self Tapping Stardrive Recess Radius Humerus 401.778 - [id number] Implanted:Qty: 1 on 01/26/2022 by Deana Lacey MD at [facility] Synthes I 401.778 / / Synthes Plate Bone Compression Locking Low Profile 3x7 Hole Pre Contoured Lcp 2.4x58mm Ti 449.615 - [id number] Implanted:Qty: 1 on 01/26/2022 by Deana Lacey MD at [facility] Synthes I 449.615 / / Synthes Plate Bone Compression Locking Low Profile 6 Hole Pre Contoured Lcp 2.4x52mm Ti 449.676 - [id number] Implanted:Qty: 1 on 01/26/2022 by Deana Lacey MD at [facility] Synthes I 449.676 / / Synthes Screw Bone Cortical St Full Thread Lcp 2.7x44mm Ti 402.963 - [id number] Implanted:Qty: 1 on 01/26/2022 by Deana Lacey MD at [facility] Synthes I 402.963 / / Synthes Lcp 2.4mm 30mm T8 Stardrive Recess Self Tapping Locking Threaded 412.830 - [id number] Implanted:Qty: 1 on 01/26/2022 by Deana Lacey MD at [facility] Synthes I 412.830 / / Synthes Screw Bone 2.7mm 60mm Lcp Ti Darius Selftap Nonstrl Mini Frag 402.969 - [id number] Implanted:Qty: 1 on 01/26/2022 by Deana Lacey MD at [facility] Left: Arm Synthes I 402.969 / / Explanted Type Area Hard Metals Engraver Hand Device Identifier Shelf Expiration Date Model / Serial / Lot [employer] K Wire Fix [place] Smooth Sgl End Ss [id number] - [id number] Explanted:Qty: 2 on 01/26/2022 by Deana Lacey MD at [facility] [employer] [id number] / / Procedures Procedure Name Priority Date/Time [...] F with given history of screening. Postmenopausal Hard Metals Engraver Hand/Model: Zentila Discovery SL (S/N [id number]) CLINICAL INFORMATION: Current height: 63.5 inches Maximum [...] Estuardo Quach M.D. MF: APRIL Report ID: [id number] Reading Location: [place] [address] Procedure Note Estuardo Quach MD - 01/21/2023 EXAM DESCRIPTION: DEXA AXIAL SKELETON BONE DENSITY 1 OR MORE SITES REASON FOR STUDY: 72 y/o year old F with given history of screening. Postmenopausal Hard Metals Engraver Hand/Model: PictureMenu SL (S/N [id number]) CLINICAL INFORMATION: Current height: 63.5 inches Maximum [...] Estuardo Quach M.D. MF: APRIL Report ID: [id number] Reading Location: [place] [address] Clive Johnson MD IM DXA PROCEDURES Final Result from Last 3 Months or Most Recently Relevant to Health Maintenance Insurance MEDICARE SOLUTIONS MEDICARE SOLUTIONS MEDICARE SOLUTIONS Advance Directives For more information, please contact: [phone] * Full Code (Latest Code Status on File) Date Activated Date Inactivated Comments 01/26/2022 4:21 PM 01/28/2022 7:52 PM * Full Code Date Activated Date Inactivated Comments 01/26/2022 4:41 AM 01/26/2022 4:21 PM Care Teams Stripper Cutter Machine Relationship Specialty Start Date End Date Martín Cuenca MD [address] [place] [id number] PCP - General Family Medicine 12/04/23
--- OUTSIDE RECORDS SUMMARY | 2024-10-23 21:46 | XMS_ITS | Encounter Summary ---
Author Organization [employer] Address [address] [place] [address] Care Team Providers Care Sole Polisher Name Role Phone Kylie Reynolds MD Primary Care Provider Brennan hagan Encounter Details Date Type Department Care Team (Late st Contact Info) Description 01/01/2004 Outpatient Historical [facility] Ronnie Lane MD NO ADDRESS ON FILE ABNORMAL LIVER FUNCTION STUDY (Primary Dx) Social History Tobacco Use Types Packs/Day Years Used Date Smoking Tobacco: Never Assessed Comments Unknown Sex and Gender Information Value Date Recorded Sex Assigned at Not on file Legal Sex Female 5:26 AM COOK HELPER MEAT Gender Identity Not on file Sexual Orientation Not on file documented as of this encounter Plan of Treatment Not on file documented as of this encounter Visit Diagnoses Diagnosis Nonspecific abnormal results of liver function study- Primary documented in this encounter Care Teams Sole Polisher Relationship Specialty Start Date End Date Kylie Reynolds MD NO ADDRESS ON FILE PCP - General 01/23/01 02/25/16 documented as of this encounter
--- OUTSIDE RECORDS SUMMARY | 2024-10-23 21:46 | XMS_ITS | Encounter Summary ---
Author Organization [facility] Address [address] [facility] [place] [address] Phone Care Team Providers Care Sex Crimes Detective Name Role Phone Ramin Angeles DO Unavailable [phone] Jeniffer Burciaga MD Primary Care Provider [phone] Lizz Mccauley RN Unavailable Unavailable Lincoln Simpson DPM Unavailable Unavailable Provider, None Primary Care Provider Unavailabl e Martín Cuenca MD Primary Care Provider [phone] Bairon Ryan MD Unavailable [phone] Larisa Eisenberg RHIT, PROJECT SAFETY MANAGER Unavailable + [phone] Cynthia Woody RHIT, PROJECT SAFETY MANAGER Primary Care Provider + Elio Monae MD Unavailable G[place] Morel MD Primary Care Provider + [phone] Reason for Visit * Reason Onset Date Comments Cough 03/26/2021 Encounter Details Date Type Department Care Team (Late st Contact Info) Description 03/26/2021 Nurse Triage [facility] - [facility] [address] [place] [address] Jeniffer Burciaga MD [address] [place] [address] Cough Social History Tobacco Use Types Packs/Day Years [...] encounter Miscellaneous Notes * Telephone Encounter - Kylie Chawla PAC - 03/26/2021 4:10 PM CDT Ov advised or prompt care * Telephone Encounter - Julee Toledo RN - 03/26/2021 1:28 PM CDT SITUATION: Cough/congestion BACKGROUND: Cough, chest congestion, sore throat, fatigue started 2 days ago HISTORY: HTN, Dyslipidemia, MCKENNA, ADD, Depression, Anxiety ASSESSMENT: Onset / Duration: 2 days ago Symptom Description / Location: The patient reports her boyfriend has Bronchitis and it being treated with a Zpack and now she has the same symptoms. The patient states 2 days ago she developed symptoms: Cough (not sure if prod/nonprod- patient said she has bad taste in mouth & is not sure if coughing up anything), chest congestion, sore throat, and is tired. The patient denies fever, chest pa in, SOB, and head congestion. The patient said it's all in my chest . The patient reports she has not taken any OTC medication for this. The patient is asking for a Zpack to be prescribed and sent to [facility] in [place]. Pain (0-10): sore throat Temp: afebrile Other Symptoms: cough, chest congestion, sore throat, fatigue Treatment / Response: Patient is requesting Rx for Zpack LMP / / : Unknown Last Appointment: 01/11/21 RECOMMENDATION: See care advice and disposition for Guideline. Patient is requesting recommendation from PCP and is requesting Rx for Zpack. First positive answer recorded, all responses to prior questions were negative. If symptoms increase, change or if new symptoms develop, call your HCP or call back. Recommendations were based on caller information and is not a diagnosis. Verified and reviewed all triage information with caller. Teach-back method utilized. Reason for Disposition ??? Cough with no complications Protocols used: COUGH-A-OH * Telephone Encounter - Julee Toledo RN - 03/26/2021 1:27 PM CDTFrom: Rina Gonsales To: Dr. Nicko Burciaga Sent: 03/26/2021 12:56 PM CDT Subject: Prescription Question I think I have bronchitis because my boyfriend just is now recovering from it. I have all the same symptoms. Could you provide a prescription for a ZPack. That is what urgent care gave to him and it is working on him. I want to stop this bronchitis before it gets out of control. Could you send it to [facility] in [facility]. Thank you so much. documented in this encounter Plan of Treatment Upcoming Encounters Date Type Department Care Team (Late st Contact Info) Description 11/05/2024 1:30 PM WARP KNIT OPERATOR Appointment [facility] [address] [place] [address] Ovi Trinidad, RHIT, PROJECT SAFETY MANAGER [address] [place] [address] Discharge Disposition: Discharged to home or Selfcare 11/13/2024 8:00 AM WARP KNIT OPERATOR Procedure Visit [facility] PHYSICIAN [facility] [address] [place] [phone] Davion Alicea MD [address] [phone] 12/18/2024 10:30 AM CDT Office Visit [facility] Medical [facility] - [facility] [address] [place] [phone] Cynthia Woody APRN, PROJECT SAFETY MANAGER [address] [place] [address] 03/10/2025 1:00 PM CDT [facility] [address] [place] [phone] Gilmar Bodn MD [address] [place] [address] Discharge Disposition: Discharged to home or Selfcare documented as of this encounter Visit Diagnoses Not on filedocumented in this encounter Additional Health Concerns Assessment Noted Time PHQ-9 Depression Total Score: 0 04/12/20 18 2:00 PM CDT documented as of this encounter Care Teams Sex Crimes Detective Relationship Specialty Start Date End Date Jeniffer Burciaga MD [address] [place] [address] PCP - General Family Medicine 02/10/16 09/06/23 Provider, None [place] PCP - General 09/07/23 10/05/23 Martín Cuenca MD [address] [place] [address] PCP - General Family Medicine 10/06/23 02/05/24 Cynthia Woody, RHIT, PROJECT SAFETY MANAGER [address] [place] [address] PCP - General Advanced Practice Nurse 02/07/24 Gorge Morel MD [address] [place] [address] PCP - General Infectious Disease 10/15/24 Ramin Angeles DO Consulting Physician Gastroenterology 01/14/16 08/20/24 Lizz Mccauley RN [place] Tracing Lathe Set Up Operator 12/15/21 08/07/22 Lincoln Simpson DPM Podiatry 03/30/22 Bairon Ryan MD [address] [place] [phone] Consulting Physician Neurology 09/07/23 Larisa Eisenberg APRN, PROJECT SAFETY MANAGER [address] [facility] [address] [place] [address] Nurse Practitioner Advanced Practice Nurse 01/26/24 Elio Monae MD [address] [place] [phone] Consulting Physician Pulmonary Disease 06/05/24 documented as of this encounter
--- OUTSIDE RECORDS SUMMARY | 2024-10-23 21:46 | XMS_ITS | Encounter Summary ---
Author Organization [employer] Address [address] [place] [address] Care Team Providers Care Network Control Supervisor Name Role Phone Kylie Reynolds MD Primary Care Provider Brennan hagan Encounter Details Date Type Department Care Team (Latest Contact Info) Description 07/25/2005 Outpatient Historical [facility] Kylie Gorman MD NO ADDRESS ON FILE BENIGN HYPERTENSION (Primary Dx) Social History Tobacco Use Types Packs/Day Years Used Date Smoking Tobacco: Never Assessed Comments Unknown Sex and Gender Information Value Date Recorded Sex Assigned at Not on file Legal Sex Female 5:26 AM EMULSION COATER Gender Identity Not on file Sexual Orientation Not on file documented as of this encounter Plan of Treatment Not on file documented as of this encounter Procedures Procedure Name Priority Date/Time Associated Diagnosis Comments URINALYSIS W/REFLEX MICROSCOPIC Routine 07/25/2005 9:56 AM EMULSION COATER ALT Routine 07/25/2005 9:56 AM EMULSION COATER AST Routine 07/25/2005 9:56 AM EMULSION COATER LIPID PANEL Routine 07/25/2005 9:56 AM EMULSION COATER BASIC METABOLIC PANEL Routine 07/25/2005 9:56 AM EMULSION COATER documented in this encounter Results * (ABNORMAL) URINALYSIS (07/25/2005 9:56 AM EMULSION COATER) COLOR UA Yellow INTERFACE SYSTEM CLARITY UA Cloudy(A) Clear INTERFACE SYSTEM SPECIFIC GRAVITY UA 1.020 1.001 - 1.035 INTERFACE SYSTEM PH UA 5.5 5.0 - 8.0 INTERFACE SYSTEM LEUKOCYTE ESTERASE UA Negative Negative INTERFACE SYSTEM NITRITE UA Negative Negative INTERFACE SYSTEM PROTEIN UA Trace(A) Negative INTERFACE SYSTEM GLUCOSE UA Negative Negative INTERFACE SYSTEM KETONES UA Negative Negative INTERFACE SYSTEM UROBILINOGEN UA <1 <1 mg/dL INTE RFACE SYSTEM BILIRUBIN UA Negative Negative INTERFA CE SYSTEM BLOOD UA 1+(A) Negative INTERFACE SYSTEM RBC UA 5(H) 0 - 4 /HPF INTERFACE SYSTEM BACTERIA UA 1+(A) None Seen /HPF INTERFACE SYSTEM EPITHELIAL CELLS, URINE Many /HPF INTERFACE SYSTEM AMORPHOUS CRYSTAL Many /HPF INTERFACE SYSTEM 07/25/2005 9:56 AM EMULSION COATER Kylie Reynolds MD URINE ORDERABLES Final Result Performing Organization Address [facility] Phone Number INTERFACE SYSTEM Refer to clinic/hospital department * (ABNORMAL) ALT (07/25/2005 9:56 AM EMULSION COATER) ALT 33(H) 0 - 31 U/L INTERFACE SYSTEM 07/25/2005 9:56 AM EMULSION COATER Kylie Reynolds MD CHEMISTRY ORDERABLES Final Resul t Performing Organization Address [facility] Phone Number INTERFACE SYSTEM Refer to clinic/hospital department * (ABNORMAL) AST (07/25/2005 9:56 AM EMULSION COATER) AST 37(H) 12 - 32 U/L INTERFAC E SYSTEM 07/25/2005 9:56 AM EMULSION COATER us Kylie Reynolds MD CHEMISTRY ORDERABLES Final Resul t Performing Organization Address [facility] de Phone Number INTERFACE SYSTEM Refer to clinic/hospital department * (ABNORMAL) LIPID PANEL (07/25/2005 9:56 AM EMULSION COATER) CHOLESTEROL 177 100 - 199 mg/dL INTERFACE SYSTEM TRIGLYCERIDE 72 10 - 149 mg/dL INTERFACE SYSTEM HDL 83(H) 40 - 59 mg/dL INTERFACE SYSTEM LDL CALCULATED 80 <=99 mg/dL INTERFACE SYSTEM CHOL/HDL RATIO 2.1 2.0 - 5.0 INTER FACE SYSTEM Comment:See [...] <110 Borderline 110 - 129 High >=130 07/25/2005 9:56 AM EMULSION COATER Kylie Reynolds MD CHEMISTRY ORDERABLES Final Resul t Performing Organization Address City/[facility] Co de Phone Number INTERFACE SYSTEM Refer to clinic/hospital department * BASIC METABOLIC PANEL (07/25/2005 9:56 AM EMULSION COATER) GLUCOSE 97 65 - 109 mg/dL INTERFACE SYSTEM CREATININE 0.8 0.4 - 1.2 mg/dL INTERFACE SYSTEM CALCIUM 9.0 8.6 - 10.2 mg/dL INTERFACE SYSTEM BUN 13 6 - 20 mg/dL INTERFACE SYSTEM SODIUM 139 135 - 145 mmol/L INTERFACE SYSTEM POTASSIUM 4.5 3.5 - 4.9 mmol/L INTERFACE SYSTEM CHLORIDE 103 96 - 108 mmol/L INTERFACE SYSTEM CO2 28 22 - 30 mmol/L INTERFACE SYSTEM 07/25/2005 9:56 AM EMULSION COATER us Kylie Reynolds MD CHEMISTRY ORDERABLES Final Resul t Performing Organization Address [facility] Co de Phone Number INTERFACE SYSTEM Refer to clinic/hospital department documented in this encounter Visit Diagnoses Diagnosis Essential hypertension, benign- Primary documented in this encounter Care Teams Network Control Supervisor Relationship Specialty Start Date End Date Kylie Reynolds MD NO ADDRESS ON FILE PCP - General 01/23/01 02/25/16 documented as of this encounter
--- OUTSIDE RECORDS SUMMARY | 2024-10-23 21:46 | XMS_ITS | Encounter Summary ---
Author Organization [facility] Address [address] [place] [address] Care Team Providers Care Rn Clinical Coordinator Name Role Phone Kylie Reynolds MD Primary Care Provider Brennan hagan Encounter Details Date Type Department Care Team (Latest Contact Info) Description 12/30/2003 Outpatient Historical [facility] [address], Ronnie Yi MD NO ADDRESS ON FILE IRON DEFIC ANEMIA NOS (Primary Dx) Social History Tobacco Use Types Packs/Day Years Used Date Smoking Tobacco: Never Assessed Comments Unknown Sex and Gender Information Value Date Recorded Sex Assigned at Not on file Legal Sex Female 5:26 AM BPO SPECIALIST Gender Identity Not on file Sexual Orientation Not on file documented as of this encounter Plan of Treatment Not on file documented as of this encounter Visit Diagnoses Diagnosis Iron deficiency anemia, unspecified- Primary documented in this encounter Care Teams Rn Clinical Coordinator Relationship Specialty Start Date End Date Kylie Reynolds MD NO ADDRESS ON FILE PCP - General 01/23/01 02/25/16 documented as of this encounter
--- OUTSIDE RECORDS SUMMARY | 2024-10-23 21:46 | XMS_ITS | Encounter Summary ---
Author Organization [employer] Address [address] [place] [address] Care Team Providers Care Truss Puller Helper Name Role Phone Kylie Reynolds MD Primary Care Provider Brennan hagan Encounter Details Date Type Department Care Team (Latest Contact Info) Description 12/04/2003 Outpatient Historical [facility] Linda Lopez IRON DEF ANEMIA DIETARY (Primary Dx) Social History Tobacco Use Types Packs/Day Years Used Date Smoking Tobacco: Never Assessed Comments Unknown Sex and Gender Information Value Date Recorded Sex Assigned at Not on file Legal Sex Female 5:26 AM REGULATORY COMPLIANCE ENGINEER Gender Identity Not on file Sexual Orientation Not on file documented as of this encounter Plan of Treatment Not on file documented as of this encounter Visit Diagnoses Diagnosis Iron deficiency anemia secondary to inadequate dietary iron intake- Primary documented in this encounter Care Teams Truss Puller Helper Relationship Specialty Start Date End Date Kylie Reynolds MD NO ADDRESS ON FILE PCP - General 01/23/01 02/25/16 documented as of this encounter
--- OUTSIDE RECORDS SUMMARY | 2024-10-23 21:46 | XMS_ITS | Encounter Summary ---
Author Organization [employer] Address [address] [place] [address] Care Team Providers Care Data Reduction Technician Name Role Phone Kylie Reynolds MD Primary Care Provider Brennan hagan Encounter Details Date Type Department Care Team (Latest Contact Info) Description 07/17/2003 Outpatient Historical [facility] Kylie Gorman MD NO ADDRESS ON FILE ANEMIA NOS (Primary Dx) Social History Tobacco Use Types Packs/Day Years Used Date Smoking Tobacco: Never Assessed Comments Unknown Sex and Gender Information Value Date Recorded Sex Assigned at Not on file Legal Sex Female 5:26 AM SALES ENGAGEMENT EXECUTIVE Gender Identity Not on file Sexual Orientation Not on file documented as of this encounter Plan of Treatment Not on file documented as of this encounter Visit Diagnoses Diagnosis Anemia, unspecified- Primary documented in this encounter Care Teams Data Reduction Technician Relationship Specialty Start Date End Date Kylie Reynolds MD NO ADDRESS ON FILE PCP - General 01/23/01 02/25/16 documented as of this encounter
--- OUTSIDE RECORDS SUMMARY | 2024-10-23 21:46 | XMS_ITS | Encounter Summary ---
Author Organization [employer] Address [address] [place] [address] Care Team Providers Care Still Cleaner Name Role Phone Kylie Reynolds MD Primary Care Provider Brennan hagan Encounter Details Date Type Department Care Team (Late st Contact Info) Description 03/02/2004 Outpatient Historical [facility]) [address] [place] [address] Kirill Braga MD [address] [facility] [address] [place] [address] Social History Tobacco Use Types Packs/Day Years Used Date Smoking Tobacco: Never Assessed Comments Unknown Sex and Gender Information Value Date Recorded Sex Assigned at Not on file Legal Sex Female 5:26 AM DATA ANALYST ETL DEVELOPER Gender Identity Not on file Sexual Orientation Not on file documented as of this encounter Plan of Treatment Not on file documented as of this encounter Visit Diagnoses Not on filedocumented in this encounter Care Teams Still Cleaner Relationship Specialty Start Date End Date Kylie Reynolds MD NO ADDRESS ON FILE PCP - General 01/23/01 02/25/16 documented as of this encounter
--- OUTSIDE RECORDS SUMMARY | 2024-10-23 21:46 | XMS_ITS | Encounter Summary ---
Author Organization [facility] Address [address] [facility] [place] [address] Phone Care Team Providers Care Social Human Services Assistants Name Role Phone Ramin Angeles DO Unavailable [phone] Jeniffer Burciaga MD Primary Care Provider [phone] Lizz Mccauley RN Unavailable Unavailable Lincoln Simpson DPM Unavailable Unavailable Provider, None Primary Care Provider Unavailabl e Martín Cuenca MD Primary Care Provider [phone] Bairon Ryan MD Unavailable [phone] Larisa Eisenberg CREDIT OR LOANS OFFICER, BRICKMASON APPRENTICE Unavailable + [phone] Cynthia Woody CREDIT OR LOANS OFFICER, BRICKMASON APPRENTICE Primary Care Provider + Elio Monae MD Unavailable Gorge Morel MD Primary Care Provider + [phone] Reason for Visit * Reason Onset Date Comments Medication Refill Medication Refill 01/18/2021 Encounter Details Date Type Department Care Team (Late st Contact Info) Description 01/01/[address] [facility] - Family [facility] [address] [place] [address] Jeniffer Burciaga MD [address] [place] [address] Medication Refill; Medication Refill Social History Tobacco Use Types [...] encounter Miscellaneous Notes * Telephone Encounter - Jessie Claros RN - 01/04/2021 2:19 PM CDT Called and spoke with patient states she does not need a refill as pharmacy has automatically requested a refill for her. Jessie RN documented in this encounter Plan of Treatment Upcoming Encounters Date Type Department Care Team (Late st Contact Info) Description 11/05/2024 1:30 PM LEARNING AND DEVELOPMENT OFFICER Appointment [facility] [address] [place] [address] Ovi Trinidad, CREDIT OR LOANS OFFICER, BRICKMASON APPRENTICE [address] [place] [address] Discharge Disposition: Discharged to home or Selfcare 11/13/2024 8:00 AM LEARNING AND DEVELOPMENT OFFICER Procedure Visit [facility] [address] [place] [address] Davion Alicea MD [address] [address] 12/18/2024 10:30 AM CDT Office Visit [facility] Medical [facility] - Family [facility] [address] [place] [address] Cynthia Woody, CREDIT OR LOANS OFFICER, BRICKMASON APPRENTICE [address] [place] [address] 03/10/2025 1:00 PM CDT Office Visit [facility] [address] [place] [phone] Gilmar Bond MD [address] [place] [address] Discharge Disposition: Discharged to home or Selfcare documented as of this encounter Visit Diagnoses Not on filedocumented in this encounter Additional Health Concerns Assessment Noted Time PHQ-9 Depression Total Score: 0 04/12/20 18 2:00 PM CDT documented as of this encounter Care Teams Social Human Services Assistants Relationship Specialty Start Date End Date Jeniffer Burciaga MD [address] [place] [address] PCP - General Family Medicine 02/10/16 09/06/23 Provider, None [place] PCP - General 09/07/23 10/05/23 Martín Cuenca MD [address] [place] [address] PCP - General Family Medicine 10/06/23 02/05/24 Cynthia Woody, CREDIT OR LOANS OFFICER, BRICKMASON APPRENTICE [address] [place] [address] PCP - General Advanced Practice Nurse 02/07/24 Gorge Morel MD [address] [place] [address] PCP - General Infectious Disease 10/15/24 Ramin Angeles DO Consulting Physician Gastroenterology 01/14/16 08/20/24 Lizz Mccauley, [place] Manager Drilling 12/15/21 08/07/22 Lincoln Simpson DPM Podiatry 03/30/22 Bairon Ryan MD [address] [place] [phone] Consulting Physician Neurology 09/07/23 Larisa Eisenberg APRN, BRICKMASON APPRENTICE [address] [address] [place] [address] Nurse Practitioner Advanced Practice Nurse 01/26/24 Elio Monae MD [address] [place] [address] Consulting Physician Pulmonary Disease 06/05/24 documented as of this encounter
--- OUTSIDE RECORDS SUMMARY | 2024-10-23 21:46 | XMS_ITS | Encounter Summary ---
Author Organization [employer] Address [address] [place] [address] Care Team Providers Care Executive Sales Assistant Name Role Phone Kylie Reynlods MD Primary Care Provider Brennan hagan Encounter Details Date Type Department Care Team (Late st Contact Info) Description 03/02/2004 Outpatient Historical [facility] Ronnie Bañuelos MD [facility] [place] [address] Er, Authorized P NO ADDRESS ON FILE BIPOL AFFECT, MANIC-UNSPEC (CMS/HCC) (Primary Dx) Social History Tobacco Use Types Packs/Day Years Used Date Smoking Tobacco: Never Assessed Comments Unknown Sex and Gender Information Value Date Recorded Sex Assigned at Not on file Legal Sex Female 5:26 AM REDUCTION FURNACE OPERATOR Gender Identity Not on file Sexual Orientation Not on file documented as of this encounter Plan of Treatment Not on file documented as of this encounter Visit Diagnoses Diagnosis Bipolar I disorder, most recent episode (or current) manic, unspecified (CMS/HCC)- Primary Bipolar I disorder, most recent episode (or current) manic, unspecified documented in this encounter Care Teams Executive Sales Assistant Relationship Specialty Start Date End Date Kylie Reynolds MD NO ADDRESS ON FILE PCP - General 01/23/01 02/25/16 documented as of this encounter
--- OUTSIDE RECORDS SUMMARY | 2024-10-23 21:46 | XMS_ITS | Encounter Summary ---
Author Organization [employer] Address [address] [place] [address] Care Team Providers Care Design Agent Name Role Phone Kylie Reynolds MD Primary Care Provider Brennan hagan Encounter Details Date Type Department Care Team (Latest Contact Info) Description 02/17/2005 Outpatient Historical [facility] Kylie Gorman MD NO ADDRESS ON FILE PURE HYPERCHOLESTEROLEM (Primary Dx) Social History Tobacco Use Types Packs/Day Years Used Date Smoking Tobacco: Never Assessed Comments Unknown Sex and Gender Information Value Date Recorded Sex Assigned at Not on file Legal Sex Female 5:26 AM DIRECTOR E LEARNING Gender Identity Not on file Sexual Orientation Not on file documented as of this encounter Plan of Treatment Not on file documented as of this encounter Procedures Procedure Name Priority Date/Time Associated Diagnosis Comments CBC WITH DIFFERENTIAL Routine 02/17/2005 9:50 AM CDT CBC WITH DIFFERENTIAL Routine 02/17/2005 9:50 AM CDT HEPATIC FUNCTION PANEL Routine 02/17/2005 9:50 AM CDT LIPID PANEL Routine 02/17/2005 9:50 AM CDT documented in this encounter Results * (ABNORMAL) CBC WITH DIFFERENTIAL (02/17/2005 9:50 AM CDT) NEUTROPHILS 46 45 - 70 % INTERFAC E SYSTEM LYMPHOCYTES 36 16 - 45 % INTERFAC E SYSTEM MONOCYTES 15(H) 3 - 13 % INTERFACE SYSTEM EOSINOPHILS 2 0 - 7 % INTERFAC E SYSTEM BASOPHILS 0 0 - 2 % INTERFACE SYSTEM NEUTROPHIL ABSOLUTE 1.73(L) 1.90 - 7.00 K/uL INTERFACE SYSTEM LYMPHOCYTE ABSOLUTE 1.36 0.70 - 4.50 K/uL INTERFACE SYSTEM MONOCYTE ABSOLUTE 0.55 0.10 - 1.30 K/uL INTERFACE SYSTEM EOSINOPHIL ABSOLUTE 0.09 0.00 - 0.70 K/uL INTERFACE SYSTEM BASOPHILS ABSOLUTE 0.01 0.00 - 0.20 K/uL INTERFACE SYSTEM 02/17/2005 9:50 AM CDT Kylie Reynolds MD HEMATOLOGY ORDERABLES Final Resu lt Performing Organization Address [facility] Phone Number INTERFACE SYSTEM Refer to clinic/hospital department * (ABNORMAL) CBC WITH DIFFERENTIAL (02/17/2005 9:50 AM CDT) WBC 3.7(L) 4.0 - 9.8 K/uL INTERFACE SYSTEM RBC 4.13 3.90 - 4.90 M/uL INTERFACE SYSTEM HEMOGLOBIN 13.1 11.8 - 14.8 g/dL INTERFACE SYSTEM HEMATOCRIT 39.5 35.5 - 44.0 % INTERFACE SYSTEM MCV 95.6 82.0 - 99.0 fL INTERFACE SYSTEM MCH 31.7 27.2 - 32.6 pg INTERFACE SYSTEM MCHC 33.2 31.5 - 35.5 % INTERFACE SYSTEM RDW 12.7 11.5 - 14.5 % INTERFACE SYSTEM RDW-STDEV 44.3 37.1 - 48.7 fL INTERFACE SYSTEM PLATELETS 238 140 - 350 K/uL INTERFACE SYSTEM MPV 11.6 9.3 - 12.4 fL INTERFACE SYSTEM 02/17/2005 9:50 AM CDT Kylie Reynolds MD HEMATOLOGY ORDERABLES Final Resu lt Performing Organization Address [facility] Phone Number INTERFACE SYSTEM Refer to clinic/hospital department * HEPATIC FUNCTION PANEL (02/17/2005 9:50 AM CDT) AST 30 12 - 32 U/L INTERFACE SYSTEM ALKALINE PHOSPHATASE 54 35 - 104 U/L INTERFACE SYSTEM BILIRUBIN TOTAL 0.2 0.2 - 1.0 mg/dL INTERFACE SYSTEM ALBUMIN 4.2 3.4 - 4.8 g/dL INTERFACE SYSTEM TOTAL PROTEIN 6.9 6.3 - 8.6 g/dL INTERFACE SYSTEM ALT 26 0 - 31 U/L INTERFACE SYSTEM BILIRUBIN DIRECT 0.1 0.0 - 0.3 mg/dL INTERFACE SYSTEM 02/17/2005 9:50 AM CDT Kylie Reynolds MD CHEMISTRY ORDERABLES Final Resul t Performing Organization Address [facility] Co de Phone Number INTERFACE SYSTEM Refer to clinic/hospital department * (ABNORMAL) LIPID PANEL (02/17/2005 9:50 AM CDT) CHOLESTEROL 171 100 - 199 mg/dL INTERFACE SYSTEM TRIGLYCERIDE 85 10 - 149 mg/dL INTERFACE SYSTEM HDL 71(H) 40 - 59 mg/dL INTERFACE SYSTEM LDL CALCULATED 83 <=99 mg/dL INTERFACE SYSTEM CHOL/HDL RATIO 2.4 2.0 - 5.0 INTER FACE SYSTEM Comment:See [...] <110 Borderline 110 - 129 High >=130 02/17/2005 9:50 AM CDT Kylie Reynolds MD CHEMISTRY ORDERABLES Final Resul t Performing Organization Address [facility] Co de Phone Number INTERFACE SYSTEM Refer to clinic/hospital department documented in this encounter Visit Diagnoses Diagnosis Pure hypercholesterolemia- Primary documented in this encounter Care Teams Design Agent Relationship Specialty Start Date End Date Kylie Reynolds MD NO ADDRESS ON FILE PCP - General 01/23/01 02/25/16 documented as of this encounter
[2024-10-23 21:47] VITALS: BP 98/60; PULSE 64; RESP 22; O2SAT 99
[2024-10-23 21:47] LABS: Magnesium 2.1 mg/dL (1.6-2.3)
--- OUTSIDE RECORDS SUMMARY | 2024-10-23 21:47 | XMS_ITS | Clinical Summary ---
Author Organization [facility] Address [address] [facility], [address] [address] Phone Care Team Providers Care Web Press Operator Assistant Name Role Phone Lincoln Simpson DPNicko Unavailable Unavailable Bairon Ryan MD Unavailable [phone] Elio Monae MD Unavailable Gorge Morel MD Primary Care Provider [phone] Allergies Active Allergy Reactions Criticality Noted Date Comments Ceftriaxone Itching 12/14/2021 Cyclobenzaprine Itching Low 03/14/2023 Other-Environmental Allergen (Not Found In Search) Swelling 10/25/2021 Metals surgical steel implant Penicillins Unknown 06/02/2011 Medications ARIPiprazole (ABILIFY) 5 MG Tablet Take 2.5 mg by mouth daily. Active amphetamine-dex troamphetamine (ADDERALL) 30 MG Tablet Take 30 mg by mouth 2 times daily. Active modafinil (PROVIGIL) 200 MG Tablet Take 200 mg by mouth daily. 04/29/20 19 Active calcium carbonate-vitam in D 600-400 MG-UNIT Tablet Take 1 Tablet by mouth daily. Active metroNIDAZOLE (METROCREAM) 0.75 % Cream 01/05/20 21 Active FLUoxetine (PROzac) 10 MG Capsule Take 4 Capsules by mouth daily. Take 5 tablets po for a total of 50 mg daily 90 Capsule 12/01/19 23 Active HYDROcodone-garrett taminophen (NORCO) 10-325 MG Tablet 03/28/20 23 Active naloxegol (Movantik) 25 MG Tablet Take 25 mg by mouth every morning (before breakfast). Active naloxone HCl (NARCAN) 4 MG/10ML Solution 0.4 mg/kg once. Active Ivermectin 1 % Cream 1 % by Apply externally route. Active B Complex-Biotin- FA (B-COMPLEX PO) Take by mouth. Active Calcium Carb-Cholecalci ferol (CALCIUM+D3 PO) Take by mouth. Active Glucosamine HCl 1500 MG Tablet Take 1,500 mg by mouth. Active fluticasone (FLONASE) 50 MCG/ACT SuspensionIndic ations:Rhinitis , unspecified type SHAKE LIQUID AND USE 1 TO 2 SPRAYS IN EACH NOSTRIL DAILY DIRECTED 48 g 1 02/02/20 24 Active atorvastatin (LIPITOR) 40 MG Tablet TAKE 1 TABLET BY MOUTH DAILY 100 Tablet 2 04/12/20 24 Active furosemide (LASIX) 40 MG Tablet TAKE 1 TABLET BY MOUTH DAILY 100 Tablet 2 04/18/20 24 Active lamoTRIgine (LaMICtal) 200 MG Tablet Take 300 mg by mouth daily. 04/06/20 24 Active gabapentin (NEURONTIN) 300 MG Capsule Take 300 mg by mouth 3 times daily. Active lisinopril (PRINIVIL, ZESTRIL) 40 MG TabletIndicatio ns:Essential (primary) hypertension TAKE 1 TABLET BY MOUTH DAILY 100 Tablet 1 07/30/20 24 Active amLODIPine (NORVASC) 5 MG Tablet TAKE 2 TABLETS BY MOUTH DAILY 200 Tablet 2 08/19/20 24 Active Diclofenac Sodium (VOLTAREN) 1 % GelIndications: Lumbar pain with radiation down left leg Apply 4 g 4 times daily. 350 g 09/16/20 24 Active pantoprazole (PROTONIX) 40 MG Tablet Delayed ResponseIndicat ions:Gastroesop hageal reflux disease, unspecified whether esophagitis present,Hiatal hernia TAKE 1 TABLET BY MOUTH DAILY 100 Tablet 2 10/22/19 25 Active nitrofurantoin, monohydrate-mac rocrystal, (MACROBID) 100 MG CapsuleIndicati ons:E. coli UTI Take 1 Capsule by mouth 2 times daily for 7 days. 14 Capsule 10/23/19 25 025 Active pantoprazole (PROTONIX) 40 MG Tablet Delayed ResponseIndicat ions:Gastroesop hageal reflux disease, unspecified whether esophagitis present,Hiatal hernia TAKE 1 TABLET BY MOUTH DAILY 100 Tablet 2 01/08/20 24 025 Discontinued sulfamethoxazol e-trimethoprim DS (BACTRIM DS, SEPTRA DS) 800-160 MG TabletIndicatio ns:Abnormal urinalysis Take 1 Tablet by mouth 2 times daily for 7 days. 14 Tablet 10/15/19 25 025 Discontinued sulfamethoxazol e-trimethoprim DS (BACTRIM DS, SEPTRA DS) 800-160 MG TabletIndicatio ns:Abnormal urinalysis Take 1 Tablet by mouth 2 times daily for 7 days. 14 Tablet 10/15/19 25 025 nitrofurantoin, monohydrate-mac rocrystal, (MACROBID) 100 MG CapsuleIndicati ons:E. coli UTI Take 1 Capsule by mouth 2 times daily for 7 days. 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 10/27/2021 Staphylococcal arthritis of right elbow 10/27/19 22 Lumbar radiculopathy 01/17/2018 Essential hypertension 02/10/2016 Dyslipidemia 02/10/2016 Osteopenia 02/10/2016 Bipolar disorder, in full re mission, most recent episode mixed 02/10/2016 ADD (attention deficit disorder) 02/10/2016 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 coli UTI (Primary Dx) 10/21/2024 Refill [facility] [address] [place] [address] Kylie Chawla, NISHA Medication Refill 10/15/2024 10:45 AM ACID REGENERATOR Office Visit [facility] [address] [place] [address] Ovi Trinidad APRN, RAIL CAR REPAIRER Microscopic hematuria (Primary Dx); Abnormal urinalysis Discharge Disposition: Discharged to home or Selfcare 10/15/2024 Travel 09/26/2024 Telephone [facility] [address] [place] [address] Carroll Bradford MD 09/20/2024 Results Follow-Up [facility] [address] [place] [address] Cynthia Woody APRN, RAIL CAR REPAIRER 09/16/2024 12:38 PM ACID REGENERATOR - 09/16/2024 11:59 PM ACID REGENERATOR [facility] [address] [place] [address] Cynthia Woody, BOTTLE MACHINE OPERATOR, RAIL CAR REPAIRER Discharge Disposition: Discharged to home or Selfcare 09/16/2024 12:30 PM ACID REGENERATOR - 09/16/2024 12:37 PM ACID REGENERATOR [facility] [address] [place] [address] Cynthia Woody, BOTTLE MACHINE OPERATOR, RAIL CAR REPAIRER Discharge Disposition: Discharged to home or Selfcare 09/16/2024 11:15 AM ACID REGENERATOR Office Visit [facility] [address] [place] [address] Cynthia Woody, BOTTLE MACHINE OPERATOR, RAIL CAR REPAIRER Lumbar pain with radiation down left leg (Primary Dx) Discharge Disposition: Discharged to home or Selfcare 09/16/2024 Travel 09/09/2024 1:00 PM ACID REGENERATOR Office Visit 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 Discharge Disposition: Discharged to home or Selfcare 09/09/2024 Travel 09/04/2024 Results Follow-Up [facility] [address] [place] [address] Cynthia Woody APRN, RAIL CAR REPAIRER Hematuria, unspecified type (Primary Dx) 09/04/2024 Results Follow-Up [facility] [address] [place] [address] Cynthia Woody APRN, RAIL CAR REPAIRER 09/02/2024 11:00 AM ACID REGENERATOR [facility] [address] [place] [address] Gilmar Bond MD Anemia, unspecified type Discharge Disposition: Discharged to home or Selfcare 09/02/2024 Travel 08/26/2024 9:45 AM ACID REGENERATOR - 08/26/2024 11:59 PM ACID REGENERATOR [facility] [address] [place] [address] Cynthia Woody, BOTTLE MACHINE OPERATOR, RAIL CAR REPAIRER Discharge Disposition: Discharged to home or Selfcare 08/26/2024 Travel 08/21/2024 9:55 AM ACID REGENERATOR - 08/21/2024 11:59 PM ACID REGENERATOR Hospital Encounter [facility] Mammography [address] [place] [address] Cynthia Woody, BOTTLE MACHINE OPERATOR, RAIL CAR REPAIRER Discharge Disposition: Discharged to home or Selfcare 08/21/2024 Telephone [facility] [address] [place] [address] Cynthia Woody APRN, NADIRA Results; Referral 08/19/2024 2:50 PM ACID REGENERATOR - 08/19/2024 11:59 PM ACID REGENERATOR Hospital [facility] [address] [place] [address] Cynthia Woody, KYA, NADIRA Discharge Disposition: Discharged to home or Selfcare 08/19/2024 1:45 PM ACID REGENERATOR [facility] [address] Cynthia Woody APRN, NADIRA Right shoulder pain, unspecified chronicity (Primary Dx); Anterolisthesis of cervical spine; Urinary urgency; Need for hepatitis C screening test; Essential (primary) hypertension; Low bone mass; Ingrowing nail; Hematuria, unspecified type Discharge Disposition: Discharged to home or Selfcare 08/19/2024 Travel 08/19/2024 [facility] [address] Kylie Chawla PAC Medication Refill 07/30/2024 [facility] [address] Cynthia Woody APRN, NADIRA Medication Refill from Last 3 Months Immunizations Immunization Administration Dates Next Due Covid-19, Mrna, Lnp-s, Pf, 3 0 Mcg/0.3 Ml Dose (Pfizer) 11/19/2020,10/30/2020 Influenza Vaccine 10/10/2019,07/17/2016 Influenza Vaccine greater than 3 yrs 07/18/2016, 06/18/2015,06/18/2014 Influenza Vaccine, Quadrivalent, PF 05/19,06/09/2021,07/12/2018,05/29 Influenza Vaccine,unspecifie d Formulation 06/06/2023 Influenza, High-dose, Quadrivalent 06/06/2023 Influenza, Injectable, Quadrivalent 06/08/2015 Influenza, Quadrivalent, Adjuvanted 06/01/2020 Influenza, Seasonal, Injecta ble, Undefined 07/18/2016,06/18/2015,06/18/2014 Influenza, high-dose, trivalent, PF 10/10/2019 Pneumococcal Vaccine - 13 Valent 04/11/2017 Pneumococcal Vaccine Adult - 23 Valent 0 Pneumococcal conjugate PCV20 , polysaccharide [id number] conjugate, adjuvant, PF 11/07/2023 RSV, Recombinant, Protein Andres bunit Rsvpref, Adjuvant Recon (Arexvy) 06/06/2023 TD VACCINE 02/16/2003 TDAP Vaccine 01/14/2022, 0,05/02/2019,09/18 Zoster Vaccine Recombinant 11/07/2023,05/31/2019 ,02/21/2019 Zoster Vaccine, live 04/13/2017 Family History Medical History Relation Name Comments No Known Problems Daughter 1 No Known Problems Daughter 2 Clotting Disorder Father Bret AFTER SURG NANI Heart Attack Father Bret Heart Disease Father Bret Hardening of t he arteries High Cholesterol Father Bret Hypertension Father Bret No Known Problems Half-Sister No Known Problems Maternal Grandfather Cancer Maternal Grandmother Mother mother Bipolar Disorder Mother Lesly Congestive Heart Failure Mother Lesly n/a Hypertension Mother Lesly Stroke Mother Lesly Thyroid Disease Mother Lesly No Known Problems Paternal Grandfather Heart Disease Paternal Grandmother Harden ing of the arteries Heart Disease Sister 1 High Cholesterol Sister 2 Brit Hypertension Sister 2 Brit Relation Name Status Comments Daughter 1 Alive Daughter 2 Alive Father Bret Half-Sister Alive Maternal Grandfather Maternal Grandmother Mother mother Mother Lesly Paternal Grandfather Paternal Grandmother Sister 1 Alive Sister 2 Brit Social History Tobacco Use Types Packs/Day Years Used Date Smoking Tobacco: Former Cigarettes 1 22 0 09/18/1969 - 09/18/1991 Smokeless Tobacco: Never Tobacco Cessation:Counseling Given: Not Answered Comments:Stopped smoking 30 years ago Alcohol Use Standard Drinks/Week Comments Never 0 (1 standard drink = 0.6 oz pur e alcohol) 1990 stopped [facility] Utilities Answer Date Recorded In the past 12 months has e electric, gas, oil, or water company threatened to shut off services in your home? Patient declined 04/22/2024 Social Connection and Isolation Panel [NHANES] A nswer Date Recorded In a typical week, how many times do you talk on the phone with family, friends, or neighbors? Patient declined 04/22/2024 How often do you get togethe r with friends or relatives? Patient declined 04/22/2024 How often do you attend caodaism or roman catholic serv ices? Patient declined 04/22/2024 Do you belong to any clubs o r organizations such as caodaism groups, unions, fraternal or athletic groups, or school groups? Patient declined 04/22/2024 How often do you attend meet ings of the clubs or organizations you belong to? Patient declined 04/22/2024 Are you , , di vorced, , never , or living with a partner? Patient declined 04/22/2024 AUDIT-C Answer Date Recorded Q1: How often do you have a drink containing alc ohol? Patient declined 04/22/2024 Q2: How many drinks containi ng alcohol do you have on a typical day when you are drinking? Patient declined 04/22/2024 Q3: How often do you have si x or more drinks on one occasion? Patient declined 04/22/2024 Overall Financial Resource Strain (CARDIA) Answe r Date Recorded How hard is it for you to pa y for the very basics like food, housing, medical care, and heating? Patient declined 04/22/2024 PHQ-2 Answer Date Recorded Total Score - Questions 1-9 0 11/18 [facility] - Occupational Stress Questionnaire Answer Date Recorded Do you feel stress - tense, restless, nervous, or anxious, or unable to sleep at night because your mind is troubled all the time - these days? Patient declined 04/22/2024 Exercise Vital Sign Answer Date Recorde d On average, how many days pe r week do you engage in moderate to strenuous exercise (like a brisk walk)? 1 day 04/22/2024 On average, how many minutes do you engage in exercise at this level? 20 min 04/22/2024 Hunger Vital Sign Answer Date Recorded Within the past 12 months, y ou worried that your food would run out before you got the money to buy more. Patient declined Within the past 12 months, t he food you bought just didn't last and you didn't have money to get more. Patient declined 01/2024 PRAPARE - Transportation Answer Date Re corded In the past 12 months, has l ack of transportation kept you from medical appointments or from getting medications? Patient declined 04/22/2024 In the past 12 months, has l ack of transportation kept you from meetings, work, or from getting things needed for daily living? Patient declined 04/22/2024 Housing Stability Vital Sign Answer Jaden e [...] in a penitentiary (including now)? No 09/30/2023 Housing Stability Vital Sign Answer Jaden e Recorded In the last 12 months, was t here a time when you were not able to pay the mortgage or rent on time? Patient declined 04/22/20 24 Number of Times Moved in the Last Year Not on fi le 04/22/2024 At any time in the past 12 m [facility], were you homeless or living in a penitentiary (including now)? Patient declined 04/22/2024 Education Answer Date Recorded What is the [...] Orientation Straight 11/30/2023 12 :27 PM CDT Last Filed Vital Signs Vital Sign Reading Time Taken Comments Blood Pressure 155/88 10/15/2024 10:46 AM ACID REGENERATOR Pulse 80 10/15/2024 10:46 AM ACID REGENERATOR Temperature 36.4 C (97.6 F) 09/16/2024 11:43 AM ACID REGENERATOR Respiratory Rate 16 10/15/2024 10:46 AM ACID REGENERATOR Oxygen Saturation 99% 10/15/2024 10:46 AM ACID REGENERATOR Inhaled Oxygen Concentration - - Weight 68.5 kg (151 lb) 10/15/2024 10:46 AM ACID REGENERATOR Height 160 cm (5' 3 ) 10/15/2024 10:46 AM ACID REGENERATOR Body Mass Index 26.75 10/15/2024 10:46 AM ACID REGENERATOR Plan of Treatment Upcoming Encounters Date Type Department Care Team (Late st Contact Info) Description 11/05/2024 1:30 PM ACID REGENERATOR [facility] [address] [place] [address] Ovi Trinidad, BOTTLE MACHINE OPERATOR, RAIL CAR REPAIRER [address] [place] [address] Discharge Disposition: Discharged to home or Selfcare 11/13/2024 8:00 AM ACID REGENERATOR Procedure Visit [facility] [address] [place] [address] Davion Alicea MD [address] [address] 12/18/2024 10:30 AM CDT Office Visit [facility] - [facility] [address] [place] [address] Cynthia Woody, BOTTLE MACHINE OPERATOR, RAIL CAR REPAIRER [address] [place] [address] 03/10/2025 1:00 PM CDT [facility] [address] [place] [address] Gilmar Bond MD [address] [place] [address] Discharge Disposition: Discharged to home or Selfcare Health Maintenance Due Date Last Done Comments Cologuard 2002 SARS-COV-2 Immunization ( season) 2025 07/11/2024, 06/06/2023, 06/03/2022, Additional history exists DEXA Bone Density 01/20/2025 01/20/2023, , 01/22/2021, Additional history exists Immunochemical Fecal Occult Blood 03/18/2025 03/18/2024, 07/14/2021 Mammogram 08/21/2026 08/21/2024, 02/17, 03/15/2023, Additional history exists Colonoscopy 09/02/2031 09/02/2021, 08/18, 03/10/2015 Colorectal Cancer Screening 09/02/2031 Td Immunization Every 10 Years (Adults With 1 Tdap) 01/15/2032 01/14/2022, 03/24/2020, 05/02/2019, Additional history exists 09/02/2021 Respiratory Syncytial Virus (RSV) Immunization (Adult) Completed 06/06/2023 Pneumococcal Immunization (50+ years) Completed 11/07/2023, 10/28/2019, 04/11/2017 Pneumococcal Immunization Combined Discontinued 11/07/2023, 10/28/2019, 04/11/2017 Zoster Immunization Completed 11/07/2023, 05/31/2019, 02/21/2019, Additional history exists Influenza Immunization Completed , 06/06/2023, 06/06/2023, Additional history exists Hepatitis C Virus (HCV) Screening Completed 08/21/2024 Hepatitis B Immunization Aged Out No longer eligible based on patient's age to complete this topic Meningococcal Immunization (ACWY) Aged Out No longer eligible based on patient's age to complete this topic Rotavirus Immunization Aged Out No lo nger eligible based on patient's age to complete this topic Procedures Procedure Name Priority Date/Time Associated Diagnosis Comments CULTURE, URINE Routine 10/15/2024 11:32 AM ACID REGENERATOR Abnormal urinalysis POCT UA AUTOMATED W/O MICRO Routine 10/15/2024 11:04 AM ACID REGENERATOR Microscopic hematuria RENATA,POST-VOID RES,US,NON-IMAGING Routine 10/15/2024 10:45 AM ACID REGENERATOR Microscopic hematuria XR HIP 2 VIEWS UNILATERAL LEFT Routine 09/16/2024 12:51 PM ACID REGENERATOR Lumbar pain with radiation down left leg XR LUMBAR SPINE MINIMUM 4 VIEWS Routine 09/16/2024 12:51 PM ACID REGENERATOR Lumbar pain with radiation down left leg CBC WITH AUTO DIFFERENTIAL Routine 09/02/2024 10:47 AM ACID REGENERATOR Anemia, unspecified type FREE KAPPA & LAMBDA LIGHT CHAINS SERUM Routine 09/02/2024 10:47 AM ACID REGENERATOR Anemia, unspecified type IMMUNOFIXATION W/ ELECTROPHORESIS SERUM Routine 09/02/2024 10:47 AM ACID REGENERATOR Anemia, unspecified type LACTATE DEHYDROGENASE (LD) Routine 09/02/2024 10:47 AM ACID REGENERATOR Anemia, unspecified type RETICULOCYTE COUNT (RETIC) Routine 09/02/2024 10:47 AM ACID REGENERATOR Anemia, unspecified type IRON,TRANSFERN,CALC.TIB C,%SAT Routine 09/02/2024 10:47 AM ACID REGENERATOR Anemia, unspecified type FERRITIN Routine 09/02/2024 10:47 AM ACID REGENERATOR Anemia, unspecified type COMPLETE BLOOD COUNT (CBC) WITH DIFF Routine 09/02/2024 10:47 AM ACID REGENERATOR Anemia, unspecified type US RENAL COMPLETE Routine 08/26/2024 10: 02 AM ACID REGENERATOR Hematuria, unspecified type BASSAM SCREENING BILATERAL DIGITAL W CAD W TADEO Routine 08/21/2024 10:15 AM ACID REGENERATOR Screening mammogram for breast cancer HEPATITIS C ANTIBODY Routine 08/21/2024 Need for hepatitis C screening test VITAMIN D, 25 HYDROXY TOTAL Routine 08/21/2024 Low bone mass CMP (COMPREHENSIVE METABOLIC PANEL) Routine 08/21/2024 Essential (primary) hypertension LIPID PANEL Routine 08/21/2024 Essential (primary) hypertension XR SHOULDER COMPLETE RIGHT Routine 08/19/2024 3:09 PM ACID REGENERATOR Right shoulder pain, unspecified chronicity URINALYSIS REFLEX IF INDICATED BY ABNORMAL RESULTS Routine 08/19/2024 2:46 PM ACID REGENERATOR Urinary urgency STOOL, OCCULT BLOOD IMMUNOASSAY (IFOB) Routine 03/18/2024 1:33 PM CDT Anemia, unspecified type BASSAM BONE DENSITOMETRY AXIAL SKELETON Routine 01/22/2021 1:55 PM CDT Menopause from Last 3 Months or Most Recently Relevant to Health Maintenance Results * CULTURE, URINE (10/15/2024 11:32 AM ACID REGENERATOR) CULTURE RESULTS ESCHERICHIA COLI 10/17/2024 3:48 PM ACID REGENERATOR [facility] Culture URINE SPECIMEN COLLECTION, CLEAN CATCH / Unknown Non-Phlebotomy Collection / Unknown 10/15/2024 11:32 AM ACID REGENERATOR 10/15/2024 11:32 AM ACID REGENERATOR Narrative Organism Antibiotic Method Susceptibility Escherichia coli Ampicillin [facility] V[facility] II >=32 mcg/ml: Resistant Escherichia coli Ampicillin/sulbactam [facility] II >=32 mcg/ml: Resistant Escherichia coli Cefazolin [facility] II <=4 mcg/ml: Susceptible Escherichia coli Cefepime [facility] II <=1 mcg/ml: Susceptible Escherichia coli Ceftriaxone [facility] II <=1 mcg/ml: Susceptible Escherichia coli Gentamicin [facility] II <=1 mcg/ml: Susceptible Escherichia coli Levofloxacin [facility] II <=0.12 mcg/ml: Susceptible Escherichia coli Meropenem [facility] II <=0.25 mcg/ml: Susceptible Escherichia coli Nitrofurantoin [facility] II <=16 mcg/ml: Susceptible Escherichia coli Piperacillin/Tazobactam [facility] II <=4 mcg/ml: Susceptible Escherichia coli Tobramycin [facility] II <=1 mcg/ml: Susceptible Escherichia coli Trimeth/Sulfamethoxazole [facility] I I >=320 mcg/ml: Resistant us Ovi Trinidad APRN, NADIRA MICROBIOLOGY - GENERAL ORDERABLES Final Result [facility] [address] [place] [address], [place] * (ABNORMAL) POCT UA AUTOMATED W/O MICRO (10/15/2024 11:04 AM ACID REGENERATOR) POC UA SPECIFIC GRAVITY 1.015 URINE PH 8.0 5.0 - 9.0 POC URINE LEUKOCYTES 75 /uL(A) Negative Jesusita/uL POC URINE NITRITE Negative Negative POC URINE PROTEIN Negative Negative mg/dL POC URINE GLUCOSE Norm Negative, Norm mg/dL POC URINE KETONE Negative Negative mg/dL POC URINE UROBILINOGEN Norm Norm, 0.2 E.U./dL (mg/dL), 1 E.U./dL (mg/dL) POC URINE BILIRUBIN Negative Negative mg/dL POC URINE BLOOD INSTRUMENT 50 Nani/uL(A) Negative Nani/uL POC URINE COLOR Yellow POC URINE CLARITY Clear 10/15/2024 11:0 4 AM ACID REGENERATOR us Ovi Trinidad APRN, NADIRA POINT OF CARE TESTING (MANUAL) Final Result * RENATA,POST-VOID RES,US,NON-IMAGING (10/15/2024 10:45 AM ACID REGENERATOR) Narrative Ovi Trinidad APRN, CNP - 10/15/2024 10:45 AM ACID REGENERATOR Ovi Trinidad APRN, CNP 10/15/2024 11:31 AM POCT Bladder Scan collected per standing order of Kade Trinidad on 10/15/2024 PVR= 0 ML us Ovi Trniidad APRN, NADIRA CT - SURGERY Final Result * XR HIP 2 VIEWS UNILATERAL LEFT (09/16/2024 12:51 PM ACID REGENERATOR) Anatomical Region Laterality Modality LOWER EXTREMITY, hip Left Digital Rad iography 09/16/2024 8:17 PM ACID REGENERATOR Impressions 09/16/2024 8:20 PM ACID REGENERATOR IMPRESSION: Unchanged mild T12 and moderate L1 compression deformities. 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 Minimal left hip osteoarthritis. Narrative 09/16/2024 8:20 PM ACID REGENERATOR EXAM DESCRIPTION: XR LUMBAR SPINE MINIMUM 4 VIEWS; XR HIP 2 VIEWS UNILATERAL LEFT REASON FOR STUDY: low back pain with pain down left leg with numbness and tingling onset 3 days ago. h/o lumbar fx. no surgery. FINDINGS: Five views lumbar spine and two views left hip submitted with comparison 10/22/2021. Lumbar spine: No acute fractures are identified. Mild T12 and moderate L1 compression deformities appear unchanged. There is mild rotary dextroscoliosis of the lumbar spine. There is severe L1-L2, mild L2-L3, severe L3-L4, mild L4-L5 and severe L5-S1 degenerative disc disease. There is grade 1 anterolisthesis of L5 on S1. Severe inferior lumbar facet osteoarthritis is present. Left hip: No acute fractures are identified. Alignment is normal. There is minimal left hip osteoarthritis. THIS IS AN ELECTRONICALLY VERIFIED FINAL REPORT 09/16/2024 8:17 PM - Electronically signed by Estuardo Quach M.D. MF: APRIL Report ID: [id number] Reading Location: [place] [address] Procedure Note Estuardo Quach MD - 09/16/2024 EXAM DESCRIPTION: XR LUMBAR SPINE MINIMUM 4 VIEWS; XR HIP 2 VIEWS UNILATERAL LEFT REASON FOR STUDY: low back pain with pain down left leg with numbness and tingling onset 3 days ago. h/o lumbar fx. no surgery. FINDINGS: Five views lumbar spine and two views left hip submitted with comparison 10/22/2021. Lumbar spine: No acute fractures are identified. Mild T12 and moderate L1 compression deformities appear unchanged. There is mild rotary dextroscoliosis of the lumbar spine. There is severe L1-L2, mild L2-L3, severe L3-L4, mild L4-L5 and severe L5-S1 degenerative disc disease. There is grade 1 anterolisthesis of L5 on S1. Severe inferior lumbar facet osteoarthritis is present. Left hip: No acute fractures are identified. Alignment is normal. There is minimal left hip osteoarthritis. THIS IS AN ELECTRONICALLY VERIFIED FINAL REPORT 09/16/2024 8:17 PM - Electronically signed by Estuardo Quach M.D. MF: APRIL Report ID: [id number] Reading Location: [id number] IMPRESSION: Unchanged mild T12 and moderate L1 compression deformities. 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 Minimal left hip osteoarthritis. us Cynthia Woody BOTTLE MACHINE OPERATOR, RAIL CAR REPAIRER IMG DIAGNOSTIC ORDERABLE S Final Result * XR LUMBAR SPINE MINIMUM 4 VIEWS (09/16/2024 12:51 PM ACID REGENERATOR) Anatomical Region Laterality Modality Spine, L-spine N/A Digital Radiogra phy 09/16/2024 8:17 PM ACID REGENERATOR Impressions 09/16/2024 8:20 PM ACID REGENERATOR IMPRESSION: Unchanged mild T12 and moderate L1 compression deformities. 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 Minimal left hip osteoarthritis. Narrative 09/16/2024 8:20 PM ACID REGENERATOR EXAM DESCRIPTION: XR LUMBAR SPINE MINIMUM 4 VIEWS; XR HIP 2 VIEWS UNILATERAL LEFT REASON FOR STUDY: low back pain with pain down left leg with numbness and tingling onset 3 days ago. h/o lumbar fx. no surgery. FINDINGS: Five views lumbar spine and two views left hip submitted with comparison 10/22/2021. Lumbar spine: No acute fractures are identified. Mild T12 and moderate L1 compression deformities appear unchanged. There is mild rotary dextroscoliosis of the lumbar spine. There is severe L1-L2, mild L2-L3, severe L3-L4, mild L4-L5 and severe L5-S1 degenerative disc disease. There is grade 1 anterolisthesis of L5 on S1. Severe inferior lumbar facet osteoarthritis is present. Left hip: No acute fractures are identified. Alignment is normal. There is minimal left hip osteoarthritis. THIS IS AN ELECTRONICALLY VERIFIED FINAL REPORT 09/16/2024 8:17 PM - Electronically signed by Estuardo Quach M.D. MF: APRIL Beth: 09/16/2024 8:17 PM Report ID: [id number] Reading Location: [id number] Procedure Note Estuardo Quach MD - 09/16/2024 EXAM DESCRIPTION: XR LUMBAR SPINE MINIMUM 4 VIEWS; XR HIP 2 VIEWS UNILATERAL LEFT REASON FOR STUDY: low back pain with pain down left leg with numbness and tingling onset 3 days ago. h/o lumbar fx. no surgery. FINDINGS: Five views lumbar spine and two views left hip submitted with comparison 10/22/2021. Lumbar spine: No acute fractures are identified. Mild T12 and moderate L1 compression deformities appear unchanged. There is mild rotary dextroscoliosis of the lumbar spine. There is severe L1-L2, mild L2-L3, severe L3-L4, mild L4-L5 and severe L5-S1 degenerative disc disease. There is grade 1 anterolisthesis of L5 on S1. Severe inferior lumbar facet osteoarthritis is present. Left hip: No acute fractures are identified. Alignment is normal. There is minimal left hip osteoarthritis. THIS IS AN ELECTRONICALLY VERIFIED FINAL REPORT 09/16/2024 8:17 PM - Electronically signed by Estuardo Quach M.D. MF: APRIL Report ID: [id number] Reading Location: [id number] IMPRESSION: Unchanged mild T12 and moderate L1 compression deformities. 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 Minimal left hip osteoarthritis. us Cynthia Woody BOTTLE MACHINE OPERATOR, RAIL CAR REPAIRER IMG DIAGNOSTIC ORDERABLE S Final Result * IRON,TRANSFERN,CALC.TIBC,%SAT (09/02/2024 10:47 AM ACID REGENERATOR) IRON 56 25 - 156 mcg/dL 09/02/2024 12:39 PM ACID REGENERATOR [facility] [[email or web address] LAB TRANSFERRIN 244 173 - 360 mg/dL 09/02/2024 12:39 PM ACID REGENERATOR [facility] [[email or web address] LAB TIBC, CALCULATED 305 265 - 497 mcg/dL 09/02/2024 12:39 PM ACID REGENERATOR [facility] % SATURATION * 18 15 - 62 % 09/02/2024 12:39 PM [facility] Blood Venipuncture / Unknown 09/02/2024 10:47 AM ACID REGENERATOR 09/02/2024 10:47 AM ACID REGENERATOR Gilmar Bond MD CHEMISTRY ORDERABLES Fin al Result [facility] [address] [place] [address] * (ABNORMAL) CBC WITH AUTO DIFFERENTIAL (09/02/2024 10:47 AM ACID REGENERATOR) WBC 5.08 4.00 - 12.00 10(3)/[facility] 09/02/2024 11:48 AM ACID REGENERATOR [facility] RBC 4.36 3.80 - 5.30 10(6)/[facility] 09/02/2024 11:48 AM ACID REGENERATOR [facility] HEMOGLOBIN (HGB) 13.0 12.0 - 15.8 g/dL 09/02/2024 11:48 AM [facility] HEMATOCRIT (HCT) 39.3 36.0 - 47.0 % 09/02/2024 11:48 AM [facility] MCV 90.1 82.0 - 96.0 fL 09/02/2024 11:48 AM ACID REGENERATOR [facility] MCH 29.8 26.0 - 34.0 pg 09/02/2024 11:48 AM [facility] MCHC 33.1 31.0 - 36.0 g/dL 09/02/2024 11:48 AM [facility] PLATELET COUNT 271 140 - 440 10(3)/[facility] 09/02/2024 11:48 AM [facility] RDW 16.7(H) 11.8 - 15.5 % 09/02/2024 11:48 AM [facility] MPV 10.9 9.7 - 12.4 fL 09/02/2024 11:48 AM ACID REGENERATOR [facility] NEUTROPHILS 52.2 47.0 - 73.0 % 09/02/2024 11:48 AM ACID REGENERATOR [facility] LYMPHOCYTES 35.0 18.0 - 42.0 % 09/02/2024 11:48 AM [facility] MONOCYTES 10.4 4.0 - 12.0 % 09/02/2024 11:48 AM ACID REGENERATOR [facility] EOSINOPHILS 1.8 0.0 - 5.0 % 09/02/2024 11:48 AM ACID REGENERATOR [facility] BASOPHILS 0.6 0.0 - 1.0 % 09/02/2024 11:48 AM [facility] ABSOLUTE NEUTROPHILS 2.65 1.60 - 7.70 10(3)/[facility] 09/02/2024 11:48 AM [facility] ABSOLUTE LYMPHOCYTES 1.78 1.30 - 3.20 10(3)/[facility] 09/02/2024 11:48 AM ACID REGENERATOR [facility] ABSOLUTE MONOCYTES 0.53 0.20 - 1.00 10(3)/[facility] 09/02/2024 11:48 AM [facility] ABSOLUTE EOSINOPHIL 0.09 0.00 - 0.40 10(3)/[facility] 09/02/2024 11:48 AM [facility] ABSOLUTE BASOPHILS 0.03 0.00 - 0.10 10(3)/[facility] 09/02/2024 11:48 AM [facility] NRBC PER 100 WBC 0 09/02/20 11:48 AM [facility] Blood Venipuncture / Unknown 09/02/2024 10:47 AM [facility] 09/02/2024 10:47 AM [facility] us Gilmar Bond MD HEMATOLOGY ORDERABLES Fi nal Result [facility] [address] [place] [address] * (ABNORMAL) FREE KAPPA & LAMBDA LIGHT CHAINS SERUM (09/02/2024 10:47 AM ACID REGENERATOR) Free [place] Lt Chn 22.33(H) 3.30 - 19.40 mg/L 09/04/2024 10:17 AM ACID REGENERATOR [facility] Free Lambda Lt Chn 12.91 5.71 - 26.30 mg/L 09/04/2024 10:17 AM ACID REGENERATOR [facility] free marty beck ratio 1.73(H) 0.26 - 1.65 09/04/2024 10:17 AM ACID REGENERATOR [facility] Blood Venipuncture / Unknown 09/02/2024 10:47 AM ACID REGENERATOR 09/02/2024 10:47 AM ACID REGENERATOR Gilmar Bond MD CHEMISTRY ORDERABLES Fin al Result [facility] [address] [place] [address], [place] * RETICULOCYTE COUNT (RETIC) (09/02/2024 10:47 AM ACID REGENERATOR) RETICULOCYTES 1.5 0.5 - 2.0 % 09/02/2024 11:48 AM ACID REGENERATOR [facility] Blood Venipuncture / Unknown 09/02/2024 10:47 AM ACID REGENERATOR 09/02/2024 10:47 AM ACID REGENERATOR Gilmar Bond MD HEMATOLOGY ORDERABLES Fi nal Result [facility] [address] [place] [address] * LACTATE DEHYDROGENASE (LD) (09/02/2024 10:47 AM ACID REGENERATOR) LDH 220 125 - 220 U/L 09/02/2024 12:39 PM ACID REGENERATOR [facility] Blood Venipuncture / Unknown 09/02/2024 10:47 AM ACID REGENERATOR 09/02/2024 10:47 AM ACID REGENERATOR us Gilmar Bond MD CHEMISTRY ORDERABLES Fin al Result [facility] [address] [place] [address] * (ABNORMAL) IMMUNOFIXATION W/ ELECTROPHORESIS SERUM (09/02/2024 10:47 AM ACID REGENERATOR) TOTAL PROTEIN 7.2 6.3 - 8.2 g/dL 09/03/2024 3:57 PM ACID REGENERATOR [facility] % ALBUMIN 54.6(L) 55.8 - 66.7 % 09/03/2024 3:57 PM ACID REGENERATOR [facility] ALBUMIN SERUM 3.9 2.5 - 5.4 g/dL 09/03/2024 3:57 PM [facility] % ALPHA 1 GLOBULIN 3.9 2.9 - 4.9 % 09/03/2024 3:57 PM ACID REGENERATOR [facility] ALPHA 1 0.3 0.2 - 0.4 g/dL 09/03/2024 3:57 PM ACID REGENERATOR [facility] % ALPHA 2 GLOBULIN 14.0(H) 7.1 - 11.8 % 09/03/2024 3:57 PM ACID REGENERATOR [facility] ALPHA 2 1.0 0.5 - 1.0 g/dL 09/03/2024 3:57 PM ACID REGENERATOR [facility] % BETA 13.4(H) 8.4 - 13.1 % 09/03/2024 3:57 PM ACID REGENERATOR [facility] BETA-GLOBULIN 1.0 0.5 - 1.1 g/dL 09/03/2024 3:57 PM ACID REGENERATOR [facility] % GAMMA GLOBULIN 14.3 11.1 - 18.8 % 09/03/2024 3:57 PM [facility] GAMMA 1.0 0.7 - 1.5 g/dL 09/03/2024 3:57 PM [facility] IMMUNOGLOBULIN G 959 552 - 1,631 mg/dL 09/03/2024 3:57 PM ACID REGENERATOR [facility] IMMUNOGLOBULIN A 143 69 - 517 mg/dL 09/03/2024 3:57 PM ACID REGENERATOR [facility] IMMUNOGLOBULIN M 122 33 - 293 mg/dL 09/03/2024 3:57 PM ACID REGENERATOR [facility] INTERPRETATION SERUM No abnormal protein band is detected by serum protein electrophoresis. Serum immunofixation electrophoresis is negative for monoclonal immunoglobulins. Reviewed by Peggy Greene, Ph.D. 09/03/2024 3:57 PM ACID REGENERATOR [facility] A/G RATIO, SERUM 1.2 09/03/20 3:57 PM ACID REGENERATOR [facility] Blood Venipuncture / Unknown 09/02/2024 10:47 AM ACID REGENERATOR 09/02/2024 10:47 AM ACID REGENERATOR Narrative [facility] - 09/03/2024 3:57 PM ACID REGENERATOR Reviewed By Brooks Shi M.D. Gilmar Bond MD CHEMISTRY ORDERABLES Fin al Result [facility] [address] [place] [address], * FERRITIN (09/02/2024 10:47 AM ACID REGENERATOR) FERRITIN 119 5 - 204 ng/mL 09/02/2024 12:51 PM ACID REGENERATOR [facility] Blood Venipuncture / Unknown 09/02/2024 10:47 AM ACID REGENERATOR 09/02/2024 10:47 AM ACID REGENERATOR Gilmar Bond MD CHEMISTRY ORDERABLES Fin al Result [facility] [address] [place] [address] * US RENAL COMPLETE (08/26/2024 10:02 AM ACID REGENERATOR) Anatomical Region Laterality Modality , Abdomen N/A Ultrasound 08/30/2024 6:36 AM ACID REGENERATOR Impressions 08/30/2024 6:39 AM ACID REGENERATOR IMPRESSION: Normal renal ultrasound. Narrative 08/30/2024 6:39 AM ACID REGENERATOR EXAM DESCRIPTION: US RENAL COMPLETE REASON FOR STUDY: Hematuria. TECHNIQUE: Ultrasound of the kidneys and urinary bladder was performed with grayscale imaging. COMPARISON: None. FINDINGS: RIGHT KIDNEY: The right kidney measures 10.2 cm in length. There is no hydronephrosis. There is normal cortical thickness and echogenicity. LEFT KIDNEY: The left kidney measures 8.9 cm in length. There is no hydronephrosis. There is normal cortical thickness and echogenicity. URINARY BLADDER: The urinary bladder, as visualized, appears unremarkable. The bilateral ureteral jets are visualized. OTHER: The liver is increased in echogenicity evidence of steatosis. THIS IS AN ELECTRONICALLY VERIFIED FINAL REPORT 08/30/2024 6:36 AM - Electronically signed by Neo Gill M.D. CH: BASSEM Report ID: [id number] Reading Location: [place] [address] Procedure Note Noe Gill Jr., MD - 08/30/2024 EXAM DESCRIPTION: US RENAL COMPLETE REASON FOR STUDY: Hematuria. TECHNIQUE: Ultrasound of the kidneys and urinary bladder was performed with grayscale imaging. COMPARISON: None. FINDINGS: RIGHT KIDNEY: The right kidney measures 10.2 cm in length. There is no hydronephrosis. There is normal cortical thickness and echogenicity. LEFT KIDNEY: The left kidney measures 8.9 cm in length. There is no hydronephrosis. There is normal cortical thickness and echogenicity. URINARY BLADDER: The urinary bladder, as visualized, appears unremarkable. The bilateral ureteral jets are visualized. OTHER: The liver is increased in echogenicity evidence of steatosis. THIS IS AN ELECTRONICALLY VERIFIED FINAL REPORT 08/30/2024 6:36 AM - Electronically signed by Neo Gill M.D. CH: BASSEM Report ID: [id number] Reading Location: [place] [address] IMPRESSION: Normal renal ultrasound. us Cynthia Woody BOTTLE MACHINE OPERATOR, RAIL CAR REPAIRER IMG US ORDERABLES Final Result * BASSAM SCREENING BILATERAL DIGITAL W CAD W TADEO (08/21/2024 10:15 AM ACID REGENERATOR) Anatomical Region Laterality Modality breast Bilateral Mammography 08/21/2024 10:1 9 AM ACID REGENERATOR Narrative 08/22/2024 10:49 AM ACID REGENERATOR - BASSAM SCREENING BILATERAL DIGITAL W CAD W TADEO BILATERAL DIGITAL SCREENING MAMMOGRAM 3D/2D WITH CAD WITH MEDIOLATERAL OBLIQUE CRANIOCAUDAL: 08/21/2024 The study was acquired using digital technology and interpreted from soft copy. Current study was also evaluated with ICAD version 7.2. 2D digital mammographic views, as well as 3D digital tomosynthesis were performed in the CC and MLO projections. CLINICAL: Routine screening. Patient has no complaints. No personal history of cancer. No family history of breast cancer. COMPARISONS: Comparison is made to exams dated: 12/07/2021, 06/09/2020, and 03/26/2019 [facility]. BREAST TISSUE:There are scattered areas of fibroglandular density. FINDINGS: No significant masses, calcifications, or other findings are seen in either breast. There has been no significant interval change. IMPRESSION: NEGATIVE There is no mammographic evidence of malignancy. A 1 year screening mammogram is recommended. A letter will be sent to the patient with these results. The patient will be entered into a reminder system with a target due date of 1 year for her next screening exam. Electronically signed by: Beatriz kwok/salome:08/21/2024 22:41:13 Morning Nanny(s): RT Daquan(R)(M), [facility] letter sent: Normal Exam Reading location: [facility] Mammogram BI-RADS: Category 1: Negative Procedure Note Beatriz Carlisle MD - 08/22/2024 - BASSAM SCREENING BILATERAL DIGITAL W CAD W TADEO BILATERAL DIGITAL SCREENING MAMMOGRAM 3D/2D WITH CAD WITH MEDIOLATERAL OBLIQUE CRANIOCAUDAL: 08/21/2024 The study was acquired using digital technology and interpreted from soft copy. Current study was also evaluated with ICAD version 7.2. 2D digital mammographic views, as well as 3D digital tomosynthesis were performed in the CC and MLO projections. CLINICAL: Routine screening. Patient has no complaints. No personal history of cancer. No family history of breast cancer. COMPARISONS: Comparison is made to exams dated: 12/07/2021, 06/09/2020, and 03/26/2019 [facility]. BREAST TISSUE:There are scattered areas of fibroglandular density. FINDINGS: No significant masses, calcifications, or other findings are seen in either breast. There has been no significant interval change. IMPRESSION: NEGATIVE There is no mammographic evidence of malignancy. A 1 year screening mammogram is recommended. A letter will be sent to the patient with these results. The patient will be entered into a reminder system with a target due date of 1 year for her next screening exam. Electronically signed by: Beatriz kwok/salome:08/21/2024 22:41:13 Morning Nanny(s): RT Daquan(R)(M), [facility] letter sent: Normal Exam Reading location: [facility] Mammogram BI-RADS: Category 1: Negative Cynthia Woody APRN, RAIL CAR REPAIRER IMG MAMMO ORDERABLES Fin al Result * VITAMIN D, 25 HYDROXY TOTAL (08/21/2024) Blood 08/21/2024 Cynthia Woody APRN, RAIL CAR REPAIRER CHEMISTRY ORDERABLES Fin al Result * LIPID PANEL (08/21/2024) Blood 08/21/2024 Cynthia Woody BOTTLE MACHINE OPERATOR, RAIL CAR REPAIRER CHEMISTRY ORDERABLES Fin al Result * HEPATITIS C ANTIBODY (08/21/2024) Blood 08/21/2024 Cynthia Woody BOTTLE MACHINE OPERATOR, RAIL CAR REPAIRER CHEMISTRY ORDERABLES Fin al Result * CMP (COMPREHENSIVE METABOLIC PANEL) (08/21/2024) Blood 08/21/2024 us Cynthia Woody BOTTLE MACHINE OPERATOR, RAIL CAR REPAIRER CHEMISTRY ORDERABLES Fin al Result * XR SHOULDER COMPLETE RIGHT (08/19/2024 3:09 PM ACID REGENERATOR) Anatomical Region Laterality Modality UPPER EXTREMITY, shoulder Right Digita l Radiography 08/21/2024 9:28 AM ACID REGENERATOR Impressions 08/21/2024 9:31 AM ACID REGENERATOR IMPRESSION: No acute osseous abnormality. Mild osteoarthritic changes of the acromioclavicular joint. Narrative 08/21/2024 9:31 AM ACID REGENERATOR EXAM DESCRIPTION: XR SHOULDER COMPLETE RIGHT REASON FOR STUDY: pt states her shoulder fell like it keep coming out of socket x 2 months. pt has tore muscle x 1.5 years ago. no recent injury or hx of surgery TECHNIQUE: 4 view(s) of the right shoulder COMPARISON: 10/22/2021 FINDINGS: There is no fracture or dislocation. The glenohumeral relationship is normal. There are mild osteoarthritic changes of the acromioclavicular joint. The visualized portions of the right hemithorax are unremarkable. THIS IS AN ELECTRONICALLY VERIFIED FINAL REPORT 08/21/2024 9:28 AM - Electronically signed by Abdirashid Madrigal M.D. AM: AM Report ID: [id number] Reading Location: [id number] Procedure Note Abdirashid Madrigal MD - 08/21/2024 EXAM DESCRIPTION: XR SHOULDER COMPLETE RIGHT REASON FOR STUDY: pt states her shoulder fell like it keep coming out of socket x 2 months. pt has tore muscle x 1.5 years ago. no recent injury or hx of surgery TECHNIQUE: 4 view(s) of the right shoulder COMPARISON: 10/22/2021 FINDINGS: There is no fracture or dislocation. The glenohumeral relationship is normal. There are mild osteoarthritic changes of the acromioclavicular joint. The visualized portions of the right hemithorax are unremarkable. THIS IS AN ELECTRONICALLY VERIFIED FINAL REPORT 08/21/2024 9:28 AM - Electronically signed by Abdirashid Madrigal M.D. AM: AM Report ID: [id number] Reading Location: [id number] IMPRESSION: No acute osseous abnormality. Mild osteoarthritic changes of the acromioclavicular joint. Cynthia Woody BOTTLE MACHINE OPERATOR, NADIRA IMG DIAGNOSTIC ORDERABLE S Final Result * (ABNORMAL) URINALYSIS REFLEX IF INDICATED BY ABNORMAL RESULTS (08/19/2024 2:46 PM ACID REGENERATOR) SPECIFIC GRAVITY 1.005 1.003 - 1.030 08/19/2024 4:53 PM ACID REGENERATOR [facility] URINE PH 7.0 5.0 - 9.0 08/19/2024 4:53 PM ACID REGENERATOR [facility] WBC ESTERASE Negative Negative 08/19/2024 4:53 PM ACID REGENERATOR [facility] NITRITE Negative Negative 08/19/2024 4:53 PM ACID REGENERATOR [facility] PROTEIN, RANDOM URINE Negative Negative 08/19/2024 4:53 PM ACID REGENERATOR [facility] URINE GLUCOSE, QUAL Negative Negative 08/19/2024 4:53 PM ACID REGENERATOR [facility] URINE KETONES Negative Negative 08/19/2024 4:53 PM ACID REGENERATOR [facility] UROBILINOGEN Normal Normal mg/dL 08/19/2024 4:53 PM ACID REGENERATOR [facility] URINE BLOOD 10 /uL(A) Negative nani/ul 08/19/2024 4:53 PM ACID REGENERATOR [facility] URINALYSIS COLOR Yellow 08/19/20 4:53 PM ACID REGENERATOR [facility] URINALYSIS CLARITY Clear 08/19/2024 4:53 PM [facility] WBC (Urine) Negative Negative, 0-5 /hpf 08/19/2024 4:53 PM [facility] URINE RBC'S 11-20(A) Negative, 0-2 /hpf 08/19/2024 4:53 PM ACID REGENERATOR [facility] EPITHELIAL CELLS Small amount /lpf 2023 4:53 PM ACID REGENERATOR [facility] BACTERIA, URINE Negative Negative /hpf 08/19/2024 4:53 PM ACID REGENERATOR [facility] Urine URINE SPECIMEN COLLECTION, CLEAN CATCH / Unknown Non-Phlebotomy Collection / Unknown 08/19/2024 2:46 PM ACID REGENERATOR 08/19/2024 2:46 PM ACID REGENERATOR Cynthia Woody APRN, NADIRA URINE ORDERABLES Final R esult [facility] [address] [place] [address] * STOOL, OCCULT BLOOD IMMUNOASSAY (IFOB) (03/18/2024 1:33 PM CDT) OCCULT BLOOD - IFOB Negative Negative 03/18/2024 9:42 PM CDT [facility] Other STOOL SPECIMEN / Unknown Non-Phlebotomy Collection / Unknown 03/18/2024 1:33 PM CDT 03/18/2024 3:00 PM CDT Cynthia Woody APRN, NADIRA BODY FLUIDS & STOOLS ORD ERABLES Final Result [facility] [address] [place] [address], * [facility] BONE DENSITOMETRY AXIAL SKELETON (01/22/2021 1:55 PM CDT) Anatomical Region Laterality Modality BODY N/A Other 01/22/2021 2:14 PM CDT Impressions 01/22/2021 2:17 PM CDT IMPRESSION: Low bone mass. Fracture risk assessment (FRAX): 10 year risk for a major osteoporotic fracture is 14.0 % 10 year risk for a hip fracture is 2.0 % The FRAX tool has not been validated in patients currently or previously treated with pharmacotherapy for osteoporosis. In such patients, clinical judgement must be exercised in interpreting FRAX scores as the fracture risk may be overestimated. REFERENCE: Bone mineral density: Normal (T-score above [...] to Prevention and Treatment of Osteoporosis (http://www.nof.org/professionals/clinical-guidelines) Narrative 01/22/2021 2:17 PM CDT EXAM DESCRIPTION: BASSAM BONE DENSITOMETRY AXIAL SKELETON REASON FOR STUDY: 70 y/o year old F with given history of screening. 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 COMPARISON: None available. FINDINGS: AP LUMBAR SPINE L1-L4: Total BMD is 1.297 g/cm2 T-score is 0.8 LEFT HIP: Total BMD is 0.886 g/cm2 T-score is -1.0 Femoral neck BMD is 0.829 g/cm2 T-score is -1.5 THIS IS AN ELECTRONICALLY VERIFIED FINAL REPORT 01/22/2021 2:14 PM - Electronically signed by Luis Daniel Mata M.D. AG: DAPHNE Report ID: [id number] Reading Location: [id number] Procedure Note Luis Daniel Mata MD - 01/22/2021 EXAM DESCRIPTION: BASSAM BONE DENSITOMETRY AXIAL SKELETON REASON FOR STUDY: 70 y/o year old F with given history of screening. 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 COMPARISON: None available. FINDINGS: AP LUMBAR SPINE L1-L4: Total BMD is 1.297 g/cm2 T-score is 0.8 LEFT HIP: Total BMD is 0.886 g/cm2 T-score is -1.0 Femoral neck BMD is 0.829 g/cm2 T-score is -1.5 THIS IS AN ELECTRONICALLY VERIFIED FINAL REPORT 01/22/2021 2:14 PM - Electronically signed by Luis Daniel Mata M.D. AG: DAPHNE Report ID: [id number] Reading Location: [place] [address] IMPRESSION: Low bone mass. Fracture risk assessment (FRAX): 10 year risk for a major osteoporotic fracture is 14.0 % 10 year risk for a hip fracture is 2.0 % The FRAX tool has not been validated in patients currently or previously treated with pharmacotherapy for osteoporosis. In such patients, clinical judgement must be exercised in interpreting FRAX scores as the fracture risk may be overestimated. REFERENCE: Bone mineral density: Normal (T-score above [...] to Prevention and Treatment of Osteoporosis (http://www.nof.org/professionals/clinical-guidelines) Jeniffer Burciaga MD IMG DEXA ORDERABLES Final R esult from Last 3 Months or Most Recently Relevant to Health Maintenance Insurance [facility] Advance Directives Documents on File Type Date Recorded Patient Grinder Outside Diameter Expl anation Advance Care Planning Discussion 01/12/2022 8:30 AM ACP Discussion Recor d/ 01/12/22 Power of Environmental Studies Department Chair for Health Care 01/12/2022 8:30 AM POA-HC 01/12/22 * Full Code (Latest Code Status on File) Date Activated Date Inactivated Comments 11/12/2021 2:06 PM Care Teams Web Press Operator Assistant Relationship Specialty Start Date End Date Gorge Morel [place] [address] [place] [address] PCP - General Infectious Disease 10/15/24 Lincoln Simpson DPM Podiatry 03/30/22 Bairon Ryan MD [address] [place] [address] Consulting Physician Neurology 09/07/23 Elio Monae MD [address] [place] [address] Consulting Physician Pulmonary Disease 06/05/24
--- OUTSIDE RECORDS SUMMARY | 2024-10-23 21:47 | XMS_ITS | Encounter Summary ---
Author Organization [facility] Address [address] [facility] [place] [address] Phone Care Team Providers Care Supervisor Safety Deposit Name Role Phone Ramin Angeles DO Unavailable [phone] Lincoln Simpson DPM Unavailable Unavailable Bairon Ryan MD Unavailable [phone] Larisa Eisenberg BUSINESS AND FINANCIAL COUNSEL, STRATEGIC PLANNING SPECIALIST Unavailable [phone]- [phone] Cynthia Woody BUSINESS AND FINANCIAL COUNSEL, STRATEGIC PLANNING SPECIALIST Primary Care Provider + Elio Monae MD Unavailable Gorge Morel MD Primary Care Provider + [phone] Reason for Visit * Reason Comments Medication Refill Encounter Details Date Type Department Care Team (Late st Contact Info) Description 05/15/2024 Refill [facility] [address] [place] [address] Martín Cuenca MD [address] [place] [address] Medication Refill Social History Tobacco Use Types Packs/Day Years Used Date Smoking Tobacco: Former Cigarettes 1 22 0 09/18/1969 - 09/18/1991 Smokeless Tobacco: Never Comments:Stopped smoking 30 years ago Alcohol Use Standard Drinks/Week Comments Never 0 (1 standard drink = 0.6 oz pur e alcohol) 1990 stopped [facility] Utilities Answer Date Recorded In the past 12 months has th e electric, gas, oil, or water company [...] declined 04/22/2024 How often do you attend holiness or adventism serv ices? Patient declined 04/22/2024 Do you belong to any clubs o r organizations such as holiness groups, unions, fraternal or athletic groups, or [...] Total Score - Questions 1-9 0 11/18 [facility] of Occupat ional Health - Occupational Stress [...] to sleep or slept in a senior living (including now)? No 09/30/2023 Housing Stability Vital Sign Answer Jaden e Recorded In the last 12 months, was t here a time when you were not able to pay the mortgage or rent on time? Patient declined 04/22/20 24 Number of Times Moved in the Last Year Not on fi le 04/22/2024 At any time in the past 12 m [facility], were you homeless or living in a senior living (including now)? Patient declined 04/22/2024 Education Answer [...] Telephone Encounter - Cheryl Story RN - 05/15/2024 8:18 AM CDT Images from the original note were not included. Fluticasone Propionate Dispensed Days Supply Quantity Provider Pharmacy FLUTICASONE 50MCG NASAL SP (120) RX 05/11/2024 90 48 g Martín Cuenca MD [facility] #... FLUTICASONE 50MCG NASAL SP (120) RX 02/03/2024 90 48 g Martín Cuenca MD [facility] #.. documented in this encounter Plan of Treatment Upcoming Encounters Date Type Department Care Team (Late st Contact Info) Description 11/05/2024 1:30 PM COLLECTIONS ASSISTANT [facility] [address] [place] [address] Ovi Trinidad APRN, STRATEGIC PLANNING SPECIALIST [address] [place] [address] Discharge Disposition: Discharged to home or Selfcare 11/13/2024 8:00 AM COLLECTIONS ASSISTANT Procedure Visit [facility] UROLOGY #2 [place] [address] Davion Alicea MD #[address] [address] 12/18/2024 10:30 AM CDT Office Visit [facility] [address] [place] [address] Cynthia Woody, BUSINESS AND FINANCIAL COUNSEL, STRATEGIC PLANNING SPECIALIST [address] [place] [address] 03/10/2025 1:00 PM CDT Office Visit [facility] Services [address] [place] [address] Gilmar Bond MD [address] [place] [address] Discharge Disposition: Discharged to home or Selfcare documented as of this encounter Visit Diagnoses Diagnosis Rhinitis, unspecified type documented in this encounter Additional Health Concerns Assessment Noted Time PHQ-9 Depression Total Score: 0 04/12/20 18 2:00 PM CDT documented as of this encounter Care Teams Supervisor Safety Deposit Relationship Specialty Start Date End Date Cynthia Woody, KYA, STRATEGIC PLANNING SPECIALIST [address] [place] [address] PCP - General Advanced Practice Nurse 02/07/24 Gorge Morel MD [place] [address] PCP - General Infectious Disease 10/15/24 Ramin Angeles DO Consulting Physician Gastroenterology 01/14/16 08/20/24 Lincoln Simpson DPM Podiatry 03/30/22 Bairon Ryan MD [address] [place] [address] Consulting Physician Neurology 09/07/23 Larisa Eisenberg APRN, STRATEGIC PLANNING SPECIALIST #2 [facility] [address] [place] [address] Nurse Practitioner Advanced Practice Nurse 01/26/24 Elio Monae MD [address] [place] [address] Consulting Physician Pulmonary Disease 06/05/24 documented as of this encounter
--- OUTSIDE RECORDS SUMMARY | 2024-10-23 21:47 | XMS_ITS | Encounter Summary ---
Author Organization [facility] Address [address] [facility] [place] [place] [address] Phone Care Team Providers Care Magician/Illusionist Name Role Phone Tatiana, Lincoln Frank DPM Unavailable Unavailable Bairon Ryan MD Unavailable Cynthia Woody GROCERY STORE MANAGER, BOILER TESTING TECHNICIAN Primary Care Provider + Elio Monae MD Unavailable Gorge Morel MD Primary Care Provider [phone] Encounter Details Date Type Department Care Team (Late st Contact Info) Description 09/04/2024 Results Follow-Up [facility] - Family Medicine [facility] [address] [place] [address] Cynthia Woody, KYA, BOILER TESTING TECHNICIAN [address] [place] [address] Social History Tobacco Use Types Packs/Day Years Used Date Smoking Tobacco: Former Cigarettes 1 22 0 09/18/1969 - 09/18/1991 Smokeless Tobacco: Never Comments:Stopped smoking 30 years ago Alcohol Use Standard Drinks/Week Comments Never 0 (1 standard drink = 0.6 oz pur e alcohol) [address] [facility] Utilities Answer Date Recorded In the past [...] declined 04/22/2024 How often do you attend sabianism or gnosticism serv ices? Patient declined 04/22/2024 Do you belong to any clubs o r organizations such as sabianism groups, unions, fraternal or athletic groups, or [...] Recorded Total Score - Questions 1-9 0 03/3 [facility] of Occupat ional Health - Occupational Stress [...] place to sleep or slept in a fdc (including now)? No 09/30/2023 Housing Stability Vital Sign Answer Jaden e Recorded In the last 12 months, was t here a time when you were not able to pay the mortgage or rent on time? Patient declined 04/22/20 24 Number of Times Moved in the Last Year Not on fi le 04/22/2024 At any time in the past 12 m [facility], were you homeless or living in a fdc (including now)? Patient declined 04/22/2024 Education Answer [...] st Contact Info) Description 11/05/2024 1:30 PM CERTIFIED FAMILY MEDIATOR [facility]ment [facility] [address] [place] [address] Ovi Trinidad APRN, BOILER TESTING TECHNICIAN [address] [place] [address] Discharge Disposition: Discharged to home or Selfcare 11/13/2024 8:00 AM CERTIFIED FAMILY MEDIATOR Procedure Visit [facility] UROLOGY #[address] [place] [address] Davion Alicea MD #[address] [address] 12/18/2024 10:30 AM CDT Office Visit [facility] Medical Group - Family [facility] #[address] [place] [address] Cynthia Woody APRN, BOILER TESTING TECHNICIAN [address] [place] [address] 03/10/2025 1:00 PM CDT [facility] [address] [place] [address] Gilmar Bond MD [address] [place] [address] Discharge Disposition: Discharged to home or Selfcare documented as of this encounter Visit Diagnoses Not on filedocumented in this encounter Additional Health Concerns Assessment Noted Time PHQ-9 Depression Total Score: 0 04/12/20 2:00 PM CDT documented as of this encounter Care Teams Magician/Illusionist Relationship Specialty Start Date End Date Cynthia Woody, GROCERY STORE MANAGER, BOILER TESTING TECHNICIAN [address] [place] [address] PCP - General Advanced Practice Nurse 02/07/24 10/14/24 Gorge Morel MD [address] [place] [address] PCP - General Infectious Disease 10/15/24 Lincoln Simpson DPM Podiatry 03/30/22 Bairon Ryan MD [address] [place] [address] Consulting Physician Neurology 09/07/23 Elio Monae MD [address] [place] [address] Consulting Physician Pulmonary Disease 06/05/24 documented as of this encounter
--- OUTSIDE RECORDS SUMMARY | 2024-10-23 21:47 | XMS_ITS | Encounter Summary ---
Author Organization [facility] Address [address] [facility] [place] [address] Phone Care Team Providers Care Mathematical Engineer Name Role Phone TatianaLincoln DPNicko Unavailable Unavailable Bairon Ryan MD Unavailable [phone] Elio Monae MD Unavailable Gorge Morel MD Primary Care Provider [phone] Reason for Visit * Reason Comments Medication Refill Encounter Details Date Type Department Care Team (Late st Contact Info) Description 10/21/2024 Refill [facility] - Family Medicine [facility] [address] [place] [address] Kylie Chawla PAC [address] [place] [address] Medication Refill Social History Tobacco Use Types Packs/Day Years Used Date Smoking Tobacco: Former Cigarettes 1 22 0 09/18/1969 - 09/18/1991 Smokeless Tobacco: Never Comments:Stopped smoking 30 years ago Alcohol Use Standard Drinks/Week Comments Never 0 (1 standard drink = 0.6 oz pur e alcohol) [address] [facility] Utilities Answer Date Recorded In the past 12 months has th e electric, gas, oil, or water [employer] threatened to shut off services in your home? Patient declined 04/22/2024 Social Connection and Isolation Panel [NHANES] A nswer Date Recorded In a typical week, how many times do you talk on the phone with family, friends, or neighbors? Patient declined 04/22/2024 How often do you get togethe r with friends or relatives? Patient declined 04/22/2024 How often do you attend anabaptism or mormon serv ices? Patient declined 04/22/2024 Do you belong to any clubs o r organizations such as anabaptism groups, unions, fraternal or athletic groups, or [...] Recorded Total Score - Questions 1-9 0 /3 [facility] of Occupat ional [...] any time in the past 12 m [facility], were you homeless or living in a [...] Telephone Encounter - Cheryl Story RN - 10/22/2024 9:29 AM CST Medication(s) [facility] Ref[facility] Standing Order for Pediatricand Adult Patients. Requested Prescriptions Pending Prescriptions Disp Refills pantoprazole (PROTONIX) 40 MG Tablet Delayed Response [Pharmacy Med Name: Pantoprazole Sodium 40 MGOral Tablet Delayed Release] 100 Tablet 2 Sig: TAKE 1 TABLET BY MOUTH DAILY Proton Pump Inhibitors Protocol Passed - 10/22/2024 9:28 AM Passed - Visit with relevant provider in past 12 months or upcoming 90 days Recent Visits Date Type Provider Dept 09/16/24 Office Visit Cynthia Woody APRN, NADIRA [facility] 08/19/24 Office Visit Cynthia Woody APRN, NADIRA [facility] 04/22/24 Office Visit Cynthia Woody APRN, HEALTH AND FITNESS PROFESSOR [facility] 04/12/24 Office Visit Joaquín Valle APRN, NADIRA [facility] 03/18/24 Office Visit Joaquín Valle APRN, HEALTH AND FITNESS PROFESSOR [facility] 03/13/24 Office Visit Cynthia Woody APRN, HEALTH AND FITNESS PROFESSOR [facility] 02/07/24 Office Visit Cynthia Woody APRN, HEALTH AND FITNESS PROFESSOR [facility] 12/29/23 Office Visit Cynthia Woody APRN, HEALTH AND FITNESS PROFESSOR [facility] Showing recent visits within past 365 days and meeting all other requirements Future Appointments Date Type Provider Dept 12/18/24 Appointment Cynthia Woody APRN, HEALTH AND FITNESS PROFESSOR [facility] Showing future appointments within next 90 days and meeting all other requirements WORKING SHOP LABORER documented in this encounter Plan of Treatment Upcoming Encounters Date Type Department Care Team (Late st Contact Info) Description 11/05/2024 1:30 PM WOODWORKING SHOP LABORER [facility]ointment [facility] [address] [place] [address] Ovi Trinidad APRN, HEALTH AND FITNESS PROFESSOR [address] [place] [address] Discharge Disposition: Discharged to home or Selfcare 11/13/2024 8:00 AM WOODWORKING SHOP LABORER Procedure Visit [facility] UROLOGY #[address] [place] [address] Davion Alicea MD [address]2 [facility] [address] [address] 12/18/2024 10:30 AM CDT Office Visit [facility] - [place] [address] [place] [address] Cynthia Woody, END TRIMMER, HEALTH AND FITNESS PROFESSOR [address] [place] [address] 03/10/2025 1:00 PM CDT [facility] [address] [place] [address] Gilmar Bond MD [address] [place] [address] Discharge Disposition: Discharged to home or Selfcare documented as of this encounter Visit Diagnoses Diagnosis Gastroesophageal reflux disease, unspecified whether esophagitis present Hiatal hernia Diaphragmatic hernia without mention of obstruction or gangrene documented in this encounter Additional Health Concerns Assessment Noted Time PHQ-9 Depression Total Score: 0 04/12/20 18 2:00 PM CDT documented as of this encounter Care Teams Mathematical Engineer Relationship Specialty Start Date End Date Gorge Morel MD [place] [address] PCP - General Infectious Disease 10/15/24 Lincoln Simpson DPM Podiatry 03/30/22 Bairon Ryan MD [address] [place] [address] Consulting Physician Neurology 09/07/23 Elio Monae MD [address] [place] [address] Consulting Physician Pulmonary Disease 06/05/24 documented as of this encounter
--- OUTSIDE RECORDS SUMMARY | 2024-10-23 21:47 | XMS_ITS | Encounter Summary ---
Author Organization [facility] Address [address] [facility] [place] [address] Phone Care Team Providers Care Dials Supervisor Name Role Phone Lincoln Simpson DPM Unavailable Unavailable Bairon Ryan MD Unavailable [phone] Elio Monae MD Unavailable Gorge Morel MD Primary Care Provider [phone] Encounter Details Date Type Department Care Team (Late st Contact Info) Description 10/22/2024 Results Follow-Up [facility]Y [address] [place] [address] Ovi Trinidad, BUILDING CUSTODIAL SUPERVISOR, CORPORATE DIRECTOR OF HUMAN RESOURCES [address] [place] [address] E. coli UTI (Primary Dx) Social History Tobacco Use Types Packs/Day Years Used Date Smoking Tobacco: Former Cigarettes 1 22 0 09/18/1969 - 09/18/1991 Smokeless Tobacco: Never Comments:Stopped smoking 30 years ago Alcohol Use Standard Drinks/Week Comments Never 0 (1 standard drink = 0.6 oz pur e alcohol) 1990 stopped [facility] Utilities Answer Date Recorded In the past 12 months has e [employer], gas, oil, or water [employer] threatened to shut off services in your home? Patient declined 04/22/2024 Social Connection and Isolation Panel [NHANES] A nswer Date Recorded In a typical week, how many times do you talk on the phone with family, friends, or neighbors? Patient declined 04/22/2024 How often do you get togethe r with friends or relatives? Patient declined 04/22/2024 How often do you attend scientology or orthodoxy serv ices? Patient declined 04/22/2024 Do you belong to any clubs o r organizations such as scientology groups, unions, fraternal or athletic groups, or [...] Total Score - Questions 1-9 0 /3 [facility] of Occupat ional Health - Occupational Stress [...] place to sleep or slept in a long term (including now)? No 09/30/2023 Housing Stability Vital Sign Answer Jaden e Recorded In the last 12 months, was t here a time when you were not able to pay the mortgage or rent on time? Patient declined 04/22/20 24 Number of Times Moved in the Last Year Not on fi le 04/22/2024 At any time in the past 12 m [facility], were you homeless or living in a long term (including now)? Patient declined 04/22/2024 Education Answer [...] st Contact Info) Description 11/05/2024 1:30 PM MANAGER NON PROFIT [facility] [address] [place] [address] Ovi Trinidad, BUILDING CUSTODIAL SUPERVISOR, CORPORATE DIRECTOR OF HUMAN RESOURCES [address] [place] [address] Discharge Disposition: Discharged to home or Selfcare 11/13/2024 8:00 AM MANAGER NON PROFIT Procedure Visit [facility] UROLOGY #[address] [place] [address] Davion Alicea MD #[address] [address] 12/18/2024 10:30 AM CDT Office Visit [facility] Medical Group - Family [facility] #[address] [place] [address] Cynthia Woody, BUILDING CUSTODIAL SUPERVISOR, CORPORATE DIRECTOR OF HUMAN RESOURCES [address] [place] [address] 03/10/2025 1:00 PM CDT Office Visit [facility] Oncology Services [address] [place] [address] Gilmar Bond MD [address] [place] [address] Discharge Disposition: Discharged to home or Selfcare documented as of this encounter Visit Diagnoses Diagnosis E. coli UTI- Primary Urinary tract infection, site not specified documented in this encounter Additional Health Concerns Assessment Noted Time PHQ-9 Depression Total Score: 0 04/12/20 18 2:00 PM CDT documented as of this encounter Care Teams Dials Supervisor Relationship Specialty Start Date End Date Gorge Morel MD [place] [address] PCP - General Infectious Disease 10/15/24 Lincoln Simpson DPM Podiatry 03/30/22 Bairon Ryan MD [address] [place] [address] Consulting Physician Neurology 09/07/23 Elio Monae MD #[address] [place] [address] Consulting Physician Pulmonary Disease 06/05/24 documented as of this encounter
--- OUTSIDE RECORDS SUMMARY | 2024-10-23 21:47 | XMS_ITS | Encounter Summary ---
Author Organization [facility] Address [address] [facility] [place] [address] Phone Care Team Providers Care Dock Builder Name Role Phone Ramin Angeles DO Unavailable [phone] Lincoln Simpson DPM Unavailable Unavailable Martín Cuenca MD Primary Care Provider [phone] Bairon Ryan MD Unavailable [phone] Larisa Eisenberg NATIONAL INSURANCE OFFICER, TANDEM MILL ROLLER Unavailable + [phone] Cynthia Woody NATIONAL INSURANCE OFFICER, TANDEM MILL ROLLER Primary Care Provider + Elio Monae MD Unavailable Gorge Morel MD Primary Care Provider + [phone] Reason for Visit * Reason Comments Medication Refill Encounter Details Date Type Department Care Team (Late st Contact Info) Description 01/07/2024 Refill [facility] - Family Medicine [facility] [address] [place] [address] Jeniffer Burciaga MD #2 [place] [address] Medication Refill Social History Tobacco Use Types Packs/Day Years Used Date Smoking Tobacco: Former Cigarettes 1 22 0 09/18/1969 - 09/18/1991 Smokeless Tobacco: Never Comments:Stopped smoking 30 years ago Alcohol Use Standard Drinks/Week Comments Never 0 (1 standard drink = 0.6 oz pur e alcohol) 1990 stopped [facility] Utilities Answer Date Recorded In the [...] often do you attend chur ch or hindu services? Never 09/30/2023 Do you belong to any clubs o r organizations such as baptism groups, unions, fraternal or athletic groups, or [...] Total Score - Questions 1-9 0 11/18 [facility] [place] [facility] - Occupational Stress [...] place to sleep or slept in a fpc (including now)? No 09/30/2023 Education Answer Date [...] Encounter - Cheryl Story RN - 01/08/2024 3:01 PM CDT Upcoming with Dr Cuenca but has NOT seen Dr Cuenca. * Telephone Encounter - Cheryl Story RN - 01/08/2024 3:00 PM CDT Medication(s) refilled and signed per [facility] Chronic Medication Refill Standing Order for Pediatricand Adult Patients. Requested Prescriptions Pending Prescriptions Disp Refills furosemide (LASIX) 40 MG Tablet [Pharmacy Med Name: Furosemide 40 MG Oral Tablet] 100 Tablet 0 Sig: TAKE 1 TABLET BY MOUTH DAILY Diuretics Protocol Passed - 01/07/2024 9:01 PM Passed - Serum potassium on record in past 12 months POTASSIUM Date Value Ref Range Status 10/06/2023 4.4 3.5 - 5.1 mmol/L Final Passed - Serum sodium on record in past 12 months SODIUM Date Value Ref Range Status 10/06/2023 137 136 - 145 mmol/L Final Passed - Blood pressure on record in past 12 months Clinician-entered: BP Readings from Last 3 Encounters: 12/29/23 134/70 10/06/23 130/72 09/07/23 122/68 Patient-entered: No data recorded Passed - Visit with relevant provider in past 12 months or upcoming 90 days Recent Visits Date Type Provider Dept 12/29/23 Office Visit Cynthia Woody APRN, TANDEM MILL ROLLER [facility] 10/06/23 Office Visit Cynthia Woody APRN, TANDEM MILL ROLLER [facility] 05/15/23 Office Visit Jeniffer Burciaga MD [facility] 04/05/23 Office Visit Kylie Chawla, [facility] 03/06/23 Telemedicine Jeniffer Burciaga MD [facility] Showing recent visits within past 365 days and meeting all other requirements Future Appointments Date Type Provider Dept 02/01/24 Appointment Martín Cuenca MD [facility] Showing future appointments within next 90 days and meeting all other requirements Passed - GFR on record in past 12 months GFR, EST. NONAFRICAN Date Value Ref Range Status 10/06/2023 >60 >=60 Final documented in this encounter Plan of Treatment Upcoming Encounters Date Type Department Care Team (Late st Contact Info) Description 11/05/2024 1:30 PM PROOF COINS INSPECTOR [facility] [address] [place] [address] Ovi Trinidad, NATIONAL INSURANCE OFFICER, TANDEM MILL ROLLER [address] [place] [address] Discharge Disposition: Discharged to home or Selfcare 11/13/2024 8:00 AM PROOF COINS INSPECTOR Procedure Visit [facility]Y #2 [place] [address] Davion Alicea MD #[address] [address] 12/18/2024 10:30 AM CDT Office Visit [facility] - Family Medicine [facility] [address] [place] [address] Cynthia Woody, NATIONAL INSURANCE OFFICER, TANDEM MILL ROLLER [address] [place] [address] 03/10/2025 1:00 PM CDT [facility] [address] [place] [address] Gilmar Bond MD [address] [place] [address] Discharge Disposition: Discharged to home or Selfcare documented as of this encounter Visit Diagnoses Not on filedocumented in this encounter Additional Health Concerns Assessment Noted Time PHQ-9 Depression Total Score: 0 04/12/20 2:00 PM CDT documented as of this encounter Care Teams Dock Builder Relationship Specialty Start Date End Date Martín Cuenca MD #1 [place] [address] PCP - General Family Medicine 10/06/23 02/05/24 Cynthia Woody APRN, TANDEM MILL ROLLER [address] [place] [address] PCP - General Advanced Practice Nurse 02/07/24 Gorge Morel [place] [address] PCP - General Infectious Disease 10/15/24 Ramin Angeles DO Consulting Physician Gastroenterology 01/14/16 08/20/24 Lincoln Simpson DPM Podiatry 03/30/22 Bairon Ryan MD [address] [place] [address] Consulting Physician Neurology 09/07/23 Larisa Eisenberg APRN, TANDEM MILL ROLLER [address]2 [facility] [address] [place] [address] Nurse Practitioner Advanced Practice Nurse 01/26/24 Elio Monae MD [address] [place] [address] Consulting Physician Pulmonary Disease 06/05/24 documented as of this encounter
--- OUTSIDE RECORDS SUMMARY | 2024-10-23 21:47 | XMS_ITS | Encounter Summary ---
Author Organization [facility] Address [address] [facility] [place] [address] Phone Care Team Providers Care Silviculturist Name Role Phone Ramin Angeles DO Unavailable [phone] Jeniffer Burciaga MD Primary Care Provider [phone] Lizz Mccauley RN Unavailable Unavailable Lincoln Simpson DPM Unavailable Unavailable Provider, None Primary Care Provider Unavailabl e Martín Cuenca MD Primary Care Provider [phone] Bairon Ryan MD Unavailable [phone] Larisa Eisenberg WEB PROGRAMMER, LEAN MANUFACTURING LEADER Unavailable + [phone] Cynthia Woody WEB PROGRAMMER, LEAN MANUFACTURING LEADER Primary Care Provider + Elio Monae MD Unavailable Gorge Morel MD Primary Care Provider [phone] Reason for Referral * Consult, Test & Initiate Treatment (Routine) - Closed Specialty Diagnoses / Procedures Referred By Jimenez wilkinson Referred To Contact Diagnoses Pain of hand, unspecified laterality Jeniffer Burciaga MD [address] [place] [address] Phone: tel: fax: [facility] AT [address] [place] [address] Phone: tel: fax: Referral ID Status Reason Start Date Expiration Date Visits Re quested Visits Authorized [id number] Closed 09/16/2021 1 1 Scheduling Instructions Rina is being referred to [facility] or other specialist in patient's insurance network for trigger finger See below for Rina's current medications, allergies and problem list. CURRENT MEDS: Current Outpatient Medications: amLODIPine (NORVASC) 5 MG Tablet, TAKE 1 TABLET BY MOUTH DAILY, Disp: 90 Tablet, Rfl: 3 amphetamine-dextroamphetamine (ADDERALL) 30 MG Tablet, Take 30 mg by mouth 2 times daily., Disp: , Rfl: ARIPiprazole (ABILIFY) 5 MG Tablet, Take 5 mg by mouth daily., Disp: , Rfl: atorvastatin (LIPITOR) 40 MG Tablet, TAKE 1 TABLET BY MOUTH DAILY, Disp: 90 Tablet, Rfl: 3 calcium carbonate-vitamin D 600-400 MG-UNIT Tablet, Calcium 600 + D(3) 600 mg (1,500 mg)-400 unit tablet Take 1 tablet twice a day by oral route., Disp: , Rfl: fish oil-omega-3 fatty acids 1000 MG Capsule, Take 1 Capsule by mouth daily., Disp: , Rfl: FLUoxetine (PROZAC) 40 MG Capsule, Take 40 mg by mouth daily., Disp: , Rfl: hydrOXYzine (ATARAX) 25 MG Tablet, Take 1 Tablet by mouth nightly as needed for Itching., Disp: 30 Tablet, Rfl: 0 LAMOTRIGINE PO, Take 300 mg by mouth daily., Disp: , Rfl: lisinopril (PRINIVIL, ZESTRIL) 40 MG Tablet, Take 1 Tablet by mouth daily., Disp: 90 Tablet, Rfl: 3 metroNIDAZOLE (METROCREAM) 0.75 % Cream, APPLY DAILY TO FACE FOR ROSACEA, Disp: , Rfl: modafinil (PROVIGIL) 200 MG Tablet, Take 200 mg by mouth daily., Disp: , Rfl: Multiple Vitamin (MULTI-VITAMIN PO), Take by mouth daily., Disp: , Rfl: ondansetron (ZOFRAN-ODT) 4 MG TABLET DISPERSIBLE, Take 1 Tablet by mouth every 8 hours as needed for Nausea - 1st line., Disp: 10 Tablet, Rfl: 0 pantoprazole (PROTONIX) 20 MG Tablet Delayed Response, TAKE 1 TABLET BY MOUTH DAILY NEEDED FOR ACID REFLUX, Disp: 90 Tablet, Rfl: 3 traMADol (ULTRAM) 50 MG Tablet, Take 1 Tablet by mouth every 8 hours as needed for Mild or more severe pain., Disp: 30 Tablet, Rfl: 0 No current facility-administered medications for this visit. 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 documented in this encounter Plan of Treatment Upcoming Encounters Date Type Department Care Team (Late st Contact Info) Description 11/05/2024 1:30 PM SLEEPING CAR SERVICE ATTENDANT [facility] [address] [place] [address] Ovi Trinidad APRN, LEAN MANUFACTURING LEADER [address] [place] [address] Discharge Disposition: Discharged to home or Selfcare 11/13/2024 8:00 AM SLEEPING CAR SERVICE ATTENDANT Procedure Visit [facility] #2 [place] [address] Davion Alicea MD #[address] [phone] 12/18/2024 10:30 AM CDT Office Visit [facility] - Family Medicine [facility] #[address] [place] [address] Cynthia Woody, WEB PROGRAMMER, LEAN MANUFACTURING LEADER [address] [place] [address] 03/10/2025 1:00 PM CDT [facility] [address] [place] [address] Gilmar Bond MD [address] [place] [address] Discharge Disposition: Discharged to home or Selfcare Scheduled Referrals Name Type Priority Associated Diagnoses Orde r Schedule EXTERNAL ORTHOPEDIC REFERRAL Outpatient Referral Routine Pain of hand, unspecified laterality Expected: 09/16/2021, Expires: 09/15/2022 documented as of this encounter Visit Diagnoses Diagnosis Pain of hand, unspecified laterality- Primary documented in this encounter Additional Health Concerns Assessment Noted Time PHQ-9 Depression Total Score: 0 04/12/20 18 2:00 PM CDT documented as of this encounter Care Teams Silviculturist Relationship Specialty Start Date End Date Jeniffer Burciaga MD [address] [place] [address] PCP - General Family Medicine 02/10/16 09/06/23 Provider, [facility] PCP - General 09/07/23 10/05/23 Martín Cuenca MD #1 [place] [address] PCP - General Family Medicine 10/06/23 02/05/24 Cynthia Woody, WEB PROGRAMMER, LEAN MANUFACTURING LEADER #[address] [place] [address] PCP - General Advanced Practice Nurse 02/07/24 Gorge Morel MD [address] [place] [address] PCP - General Infectious Disease 10/15/24 Ramin Angeles DO Consulting Physician Gastroenterology 01/14/16 08/20/24 Lizz Mccauley [place] Senior Payroll Manager 12/15/21 08/07/22 Lincoln Simpson DPM Podiatry 03/30/22 Bairon Ryan MD #[address] [place] [address] Consulting Physician Neurology 09/07/23 Larisa Eisenberg APRN, LEAN MANUFACTURING LEADER #2 [facility] [address] [place] [address] Nurse Practitioner Advanced Practice Nurse 01/26/24 Elio Monae MD [address] [place] [address] Consulting Physician Pulmonary Disease 06/05/24 documented as of this encounter
--- OUTSIDE RECORDS SUMMARY | 2024-10-23 21:47 | XMS_ITS | Encounter Summary ---
Author Organization [facility] Address [address] [facility] [place] [address] Phone Care Team Providers Care Eyeglass Cutter Name Role Phone Ramin Angeles DO Unavailable [phone] Lincoln Simpson DPM Unavailable Unavailable Provider, None Primary Care Provider Unavailabl e Martín Cuenca MD Primary Care Provider [phone] Bairon Ryan MD Unavailable [phone] Larisa Eisenberg TONGUER, HOSPITALITY INTERN Unavailable + [phone] Cynthia Woody TONGUER, HOSPITALITY INTERN Primary Care Provider + Elio Monae MD Unavailable Gorge Morel MD Primary Care Provider Reason for Visit * Reason Comments Medication Refill Encounter Details Date Type Department Care Team (Late st Contact Info) Description 09/12/2023 Refill [facility] - [place] [address] [place] [address] Tram Mondragon APRN, HOSPITALITY INTERN #[address] [phone] Medication Refill Social History Tobacco Use Types [...] Telephone Encounter - Cheryl Story RN - 09/12/2023 1:58 PM CST Jeniffer patient. Notified she needs appointment to transfer care. Waiting on response. Ok for refill? Medication failed the protocol, provider to review and approve the medication order if appropriate. Requested Prescriptions Pending Prescriptions Disp Refills gabapentin (NEURONTIN) 300 MG Capsule [Pharmacy Med Name: Gabapentin 300 MG Oral Capsule] 100 Capsule 0 Sig: TAKE 1 CAPSULE BY MOUTH EVERY NIGHT Not Delegated - Anticonvulsants Excluding Benzodiazepines Protocol Failed - 09/12/2023 4:34 AM Failed - This refill cannot be delegated Passed - Visit with relevant provider in past 12 months or upcoming 90 days Recent Visits Date Type Provider Dept 05/15/23 Office Visit Jeniffer Burciaga MD [facility] 04/05/23 Office Visit Kylie Chawla PAC [facility] 03/06/23 Telemedicine Jeniffer Burciaga MD [facility] 11/30/22 Office Visit Jeniffer Burciaga MD [facility] 09/28/22 Office Visit Cynthia Woody APRN, HOSPITALITY INTERN [facility] Showing recent visits within past 365 days and meeting all other requirements Future Appointments No visits were found meeting these conditions. Showing future appointments within next 90 days and meeting all other requirements UNICATION SIGNALS INTELLIGENCE documented in this encounter Plan of Treatment Upcoming Encounters Date Type Department Care Team (Late st Contact Info) Description 11/05/2024 1:30 PM COMMUNICATION SIGNALS INTELLIGENCE Appointment [facility] [address] [place] [address] Ovi Trinidad APRN, HOSPITALITY INTERN [address] [place] [address] Discharge Disposition: Discharged to home or Selfcare 11/13/2024 8:00 AM COMMUNICATION SIGNALS INTELLIGENCE Procedure Visit [facility] #2 [place] [address] Davion Alicea MD #[address] [address] 12/18/2024 10:30 AM CDT [facility] #[address] [place] [address] Cynthia Woody TONGUER, HOSPITALITY INTERN [address] [place] [address] 03/10/2025 1:00 PM CDT Office Visit [facility] On[facility] Services [address] [place] [address] Gilmar Bond MD [address] [place] [address] Discharge Disposition: Discharged to home or Selfcare documented as of this encounter Visit Diagnoses Not on filedocumented in this encounter Additional Health Concerns Assessment Noted Time PHQ-9 Depression Total Score: 0 04/12/20 18 2:00 PM CDT documented as of this encounter Care Teams Eyeglass Cutter Relationship Specialty Start Date End Date Provider, None [place] PCP - General 09/07/23 10/05/23 Martín [facility]enc[facility] MD [facility] [facility] [place] [address] PCP - General Family Medicine 10/06/23 02/05/24 Cynthia Woody, TONGUER, HOSPITALITY INTERN [address] [place] [address] PCP - General Advanced Practice Nurse 02/07/24 Gorge Morel MD [address] [address] PCP - General Infectious Disease 10/15/24 Ramin Angeles DO Consulting Physician Gastroenterology 01/14/16 08/20/24 Lincoln Simpson DPM Podiatry 03/30/22 Bairon Ryan MD [address] [place] [address] Consulting Physician Neurology 09/07/23 Larisa Eisenberg, TONGUER, HOSPITALITY INTERN [address] [address] [address] Nurse Practitioner Advanced Practice Nurse 01/26/24 Elio Monae MD [address] [place] [address] Consulting Physician Pulmonary Disease 06/05/24 documented as of this encounter
--- OUTSIDE RECORDS SUMMARY | 2024-10-23 21:47 | XMS_ITS | Encounter Summary ---
Author Organization [facility] Address [address] [facility] [place] [address] Phone Care Team Providers Care Vat Skimmer Name Role Phone Ramin Angeles DO Unavailable [phone] Jeniffer Burciaga MD Primary Care Provider [phone] Lizz Mccauley RN Unavailable Unavailable Lincoln Simpson DPM Unavailable Unavailable Provider, None Primary Care Provider Unavailabl e Martín Cuenca MD Primary Care Provider [phone] Bairon Ryan MD Unavailable [phone] Larisa Eisenberg RESPIRATORY CARE INSTRUCTOR, CAN FILLING AND CLOSING MACHINE TENDER Unavailable + [phone] Cynthia Woody RESPIRATORY CARE INSTRUCTOR, CAN FILLING AND CLOSING MACHINE TENDER Primary Care Provider + Elio Monae MD Unavailable Gorge Morel MD Primary Care Provider + [phone] Encounter Details Date Type Department Care Team (Late st Contact Info) Description 07/02/2021 [facility] 1 [place] [address] Kirill Yañez MD [address] [place] [address] Social History Tobacco Use Types Packs/Day Years [...] have Coronavirus / COVID-19? No / Unsure 07/05/2021 8:28 PM CDT documented as of this encounter Plan of Treatment Upcoming Encounters Date Type Department Care Team (Late st Contact Info) Description 11/05/2024 1:30 PM CRO Appointment [facility] [address] [place] [address] Ovi Trinidad, RESPIRATORY CARE INSTRUCTOR, CAN FILLING AND CLOSING MACHINE TENDER [address] [place] [address] Discharge Disposition: Discharged to home or Selfcare 11/13/2024 8:00 AM CRO Procedure Visit [facility] #2 [place] [address] Davion Alicea MD #2 [facility] [address] [place] [address] 12/18/2024 10:30 AM CDT [facility] #2 [place] [address] Cynthia Woody, RESPIRATORY CARE INSTRUCTOR, CAN FILLING AND CLOSING MACHINE TENDER #[address] [place] [address] 03/10/2025 1:00 PM CDT [facility] [address] [place] [phone] Gilmar Bond MD [address] [place] [address] Discharge Disposition: Discharged to home or Selfcare documented as of this encounter Visit Diagnoses Not on filedocumented in this encounter Additional Health Concerns Assessment Noted Time PHQ-9 Depression Total Score: 0 04/12/20 18 2:00 PM CDT documented as of this encounter Care Teams Vat Skimmer Relationship Specialty Start Date End Date Jeniffer Burciaga MD #[address] [place] [address] PCP - General Family Medicine 02/10/16 09/06/23 Provider, None [place] PCP - General 09/07/23 10/05/23 Martín Cuenca MD #[address] [place] [address] PCP - General Family Medicine 10/06/23 02/05/24 Cynthia Woody RESPIRATORY CARE INSTRUCTOR, CAN FILLING AND CLOSING MACHINE TENDER #2 [place] [address] PCP - General Advanced Practice Nurse 02/07/24 Gorge Morel MD [address] [place] [address] PCP - General Infectious Disease 10/15/24 Ramin Angeles DO Consulting Physician Gastroenterology 01/14/16 08/20/24 Lizz Mccauley, [place] [employer] 12/15/21 08/07/22 Lincoln Simpson, DPM Podiatry 03/30/22 Bairon Ryan MD #[address] [place] [address] Consulting Physician Neurology 09/07/23 Larisa Eisenberg, RESPIRATORY CARE INSTRUCTOR, CAN FILLING AND CLOSING MACHINE TENDER #2 [facility] [address] [place] [address] Nurse Practitioner Advanced Practice Nurse 01/26/24 Elio Monae MD #[address] [place] [address] Consulting Physician Pulmonary Disease 06/05/24 documented as of this encounter
--- OUTSIDE RECORDS SUMMARY | 2024-10-23 21:47 | XMS_ITS | Encounter Summary ---
Author Organization [facility] Address [address] [place] [address] Phone Care Team Providers Care Clay Preparation Supervisor Name Role Phone Lincoln Simpson DPM Unavailable Unavailable Bairon Ryan MD Unavailable [phone] Cynthia Woody CRM MARKETING ANALYST, CHILD WATCH ATTENDANT Primary Care Provider + Elio Monae MD Unavailable Gorge Morel MD Primary Care Provider [phone] Reason for Referral * Consult, Test & Initiate Treatment (Routine) - Open Specialty Diagnoses / Procedures Referred By Jimenez wilkinson Referred To Contact Diagnoses Hematuria, unspecified type Cynthia Woody, KYA, CHILD WATCH ATTENDANT [address] [place] [address] Phone: tel: fax: [facility] [address] [place] [address] Phone: tel: fax: Referral ID Status Reason Start Date Expiration Date Visits Re quested Visits Authorized [id number] Open 09/04/2024 1 1 Scheduling Instructions Rina is being referred for hematuria. Please contact patient for scheduling questions or concerns. WORK OPERATOR Encounter Details Date Type Department Care Team (Late st Contact Info) Description 09/04/2024 Results Follow-Up [facility] - [facility] [address] [place] [address] Cynthia Woody APRN, NADIRA [address] [place] [address] Hematuria, unspecified type (Primary Dx) Social History Tobacco Use Types Packs/Day Years Used Date Smoking Tobacco: Former Cigarettes 1 22 0 09/18/1969 - 09/18/1991 Smokeless Tobacco: Never Comments:Stopped smoking 30 years ago Alcohol Use Standard Drinks/Week Comments Never 0 (1 standard drink = 0.6 oz pur e alcohol) 1990 stopped [facility] [employer] Answer Date Recorded In the past 12 months has [employer], gas, oil, or water [employer] threatened to shut off services in your home? Patient declined 04/22/2024 Social Connection and Isolation Panel [NHANES] A nswer Date Recorded In a typical week, how many times do you talk on the phone with family, friends, or neighbors? Patient declined 04/22/2024 How often do you get togethe r with friends or relatives? Patient declined 04/22/2024 How often do you attend restorationism or mormonism serv ices? Patient declined 04/22/2024 Do you belong to any clubs o r organizations such as restorationism groups, unions, fraternal or athletic groups, or [...] Total Score - Questions 1-9 0 11/18 [facility] of Occupat ional [facility] - Occupational Stress Questionnaire Answer Date Recorded [...] place to sleep or slept in a alf (including now)? No 09/30/2023 Housing Stability Vital Sign Answer Jaden e Recorded In the last 12 months, was t here a time when you were not able to pay the mortgage or rent on time? Patient declined 04/22/20 24 Number of Times Moved in the Last Year Not on fi le 04/22/2024 At any time in the past 12 m [facility], were you homeless or living in a alf (including now)? Patient declined 04/22/2024 Education Answer [...] st Contact Info) Description 11/05/2024 1:30 PM COLD WORK OPERATOR [facility] [address] [place] [address] Ovi Trinidad APRN, CHILD WATCH ATTENDANT [address] [place] [address] Discharge Disposition: Discharged to home or Selfcare 11/13/2024 8:00 AM COLD WORK OPERATOR Procedure Visit [facility] [address] [place] [address] Davion Alicea MD [address] [address] 12/18/2024 10:30 AM CDT Office Visit [facility] [address] [place] [address] Cynthia Woody, CRM MARKETING ANALYST, CHILD WATCH ATTENDANT [address] [place] [address] 03/10/2025 1:00 PM CDT Office Visit [facility] On[facility] Services [address] [place] [phone] Gilmar Bond MD [address] [place] [address] Discharge Disposition: Discharged to home or Selfcare Scheduled Referrals Name Type Priority Associated Diagnoses Orde r Schedule UROLOGY REFERRAL Outpatient Referral Routine Hematuria, unspecified type Expected: 09/04/2024, Expires: 09/04/2025 documented as of this encounter Visit Diagnoses Diagnosis Hematuria, unspecified type- Primary documented in this encounter Additional Health Concerns Assessment Noted Time PHQ-9 Depression Total Score: 0 04/12/20 2:00 PM CDT documented as of this encounter Care Teams Clay Preparation Supervisor Relationship Specialty Start Date End Date Cynthia Woody, CRM MARKETING ANALYST, CHILD WATCH ATTENDANT [address] [place] [address] PCP - General Advanced Practice Nurse 02/07/24 10/14/24 Gorge Morel MD [address] [place] [address] PCP - General Infectious Disease 10/15/24 Lincoln Simpson DPM Podiatry 03/30/22 Bairon Ryan MD [address] [place] [address] Consulting Physician Neurology 09/07/23 Elio Monae MD [address] [place] [address] Consulting Physician Pulmonary Disease 06/05/24 documented as of this encounter
--- OUTSIDE RECORDS SUMMARY | 2024-10-23 21:47 | XMS_ITS | Encounter Summary ---
Author Organization [facility] Address [address] [facility] [place] [address] Phone Care Team Providers Care Hunting Sales Leader Name Role Phone Ramin Angeles DO Unavailable [phone] Jeniffer Burciaga MD Primary Care Provider [phone] Lincoln Simpson DPM Unavailable Unavailable Provider, None Primary Care Provider Unavailabl e Martín Cuenca MD Primary Care Provider [phone] Bairon Ryan MD Unavailable [phone] Larisa Eisenberg NUCLEAR MEDICINE OFFICER, MESH MAN Unavailable + [phone] Cynthia Woody NUCLEAR MEDICINE OFFICER, MESH MAN Primary Care Provider + Elio Monae MD Unavailable Gorge Morel MD Primary Care Provider + [phone] Reason for Visit * Reason Comments Medication Refill Encounter Details Date Type Department Care Team (Late st Contact Info) Description 06/28/2023 Refill [facility] [address] [place] [id number] Kylie Chawla, PAC [address] [place] [address] Medication Refill Social History Tobacco Use Types [...] suspected to have Coronavirus/COVID-19? No / Unsure 06/12/2023 1:45 AM CDT documented as of this encounter Miscellaneous Notes * Telephone Encounter - Matilde Nascimento RN - 06/28/2023 4:04 PM CDT Medication failed the protocol, provider to review and approve the medication order if appropriate. Requested Prescriptions Pending Prescriptions Disp Refills gabapentin (NEURONTIN) 300 MG Capsule [Pharmacy Med Name: Gabapentin 300 MG Oral Capsule] 90 Capsule 0 Sig: Take 1 Capsule by mouth nightly. Not Delegated - Anticonvulsants Excluding Benzodiazepines Protocol Failed - 06/28/2023 12:06 PM Failed - This refill cannot be delegated Passed - Visit with relevant provider in past 12 months or upcoming 90 days Recent Visits Date Type Provider Dept 05/15/23 Office Visit Jeniffer Burciaga MD [facility] Richard 04/05/23 Office Visit Kylie Chawla PAC [facility] 03/06/23 Telemedicine Jeniffer Burciaga MD [facility] 11/30/22 Office Visit [facility] 09/28/22 Office Visit Cynthia Woody APRN, MESH MAN [facility] Showing recent visits within past 365 days and meeting all other requirements Future Appointments Date Type Provider Dept 08/16/23 Appointment Jeniffer Burciaga MD [facility] Showing future appointments within next 90 days and meeting all other requirements documented in this encounter Plan of Treatment Upcoming Encounters Date Type Department Care Team (Late st Contact Info) Description 11/05/2024 1:30 PM GROUP CIO [facility] [address] [place] [address] Ovi Trinidad APRN, MESH MAN [address] [place] [address] Discharge Disposition: Discharged to home or Selfcare 11/13/2024 8:00 AM GROUP CIO Procedure Visit [facility] [address] [place] [address] Davion Alicea MD #[address] [address] 12/18/2024 10:30 AM CDT Office Visit [facility] - Family Medicine [facility] [address] [place] [address] Cynthia Woody, KYA, MESH MAN [address] [place] [address] 03/10/2025 1:00 PM CDT [facility] [address] [place] [phone] Gilmar Bond MD [address] [place] [address] Discharge Disposition: Discharged to home or Selfcare documented as of this encounter Visit Diagnoses Not on filedocumented in this encounter Additional Health Concerns Assessment Noted Time PHQ-9 Depression Total Score: 0 04/12/20 18 2:00 PM CDT documented as of this encounter Care Teams Hunting Sales Leader Relationship Specialty Start Date End Date Jeniffer Burciaga MD [address] [place] [address] PCP - General Family Medicine 02/10/16 09/06/23 Provider, [facility] PCP - General 09/07/23 10/05/23 Martín Cuenca MD [address] [place] [address] PCP - General Family Medicine 10/06/23 02/05/24 Cynthia Woody, NUCLEAR MEDICINE OFFICER, MESH MAN [address] [place] [address] PCP - General Advanced Practice Nurse 02/07/24 Gorge Morel MD [address] [place] [address] PCP - General Infectious Disease 10/15/24 Ramin Angeles DO Consulting Physician Gastroenterology 01/14/16 08/20/24 Lincoln Simpson DPM Podiatry 03/30/22 Bairon Ryan MD [address] [place] [address] Consulting Physician Neurology 09/07/23 Larisa Eisenberg APRN, MESH MAN [address] [facility] [address] [place], [place] [id number] Nurse Practitioner Advanced Practice Nurse 01/26/24 Elio Monae MD [address] [place] [address] Consulting Physician Pulmonary Disease 06/05/24 documented as of this encounter
[2024-10-23 21:52] LABS: Albumin Level 3.5 g/dL (3.5-5.1); Alkaline Phosphatase 372 U/L (38-126); Anion Gap 11 mmol/L (4-12); Bilirubin,Total 0.7 mg/dL (0.2-1.3); Blood Urea Nitrogen 29 mg/dL (7-17); Calcium 8.4 mg/dL (8.4-10.2); Carbon Dioxide 18 mmol/L (22-30); Chloride 101 mmol/L (98-107); Estimated CRCL calculation 42 ml/min; Estimated Glomerular Filt Rate 55; Glucose 102 mg/dL (65-110); Lipase 89 U/L (23-300); Sodium 130 mmol/L (137-145)
[2024-10-23 21:57] LABS: Alanine Aminotransferase 1687 U/L (6-35); Aspartate Amino Transferase 1285 U/L (14-36); Band Neutrophils Percent 1 % (0-6); Eosinophils Absolute Manual 0.03 K/mm3 (0.02-0.50); Eosinophils Percent Manual 1 % (0-4); Large Platelets Present; Lymphocytes Absolute Manual 1.36 K/mm3 (1.1-4.5); Monocytes Percent Manual 16 % (3-9); Neutrophils Absolute Manual 1.78 K/mm3 (1.7-7.2); Neutrophils Percent Manual 46 % (46-73); Platelet Estimate Adequate (Adequate); Schistocytes None Seen; Total Cells Counted 100
[2024-10-23 22:02] LABS: Add Urine Microscopic? NO; Appearance Urine Clear (Clear); Bilirubin Urine Negative (Negative); Blood Urine Negative (Negative); Color Urine Yellow (Yellow); Glucose Urine UA Negative (Negative); Ketones Urine Trace mg/dL (Negative); Leukocyte Esterase Ur Negative LEU/UL (Negative); Nitrate Urine Negative (Negative); Protein Urine Negative (Negative); Specific Grav Ur 1.011 (1.001-1.035)
[2024-10-23 22:50] LABS: Acetaminophen < 10 ug/mL (10-30)
[2024-10-23 22:54] VITALS: BP 98/61
[2024-10-23] MEDS: SODIUM CHLORIDE 0.9% IV 1,000 ML 999 ML IV CONT (23:01)
[2024-10-23 23:15] LABS: Partial Thromboplastin Time 26.7 Seconds (22.3-36.8); Prothrombin Time 13.8 Seconds (11.1-14.7)
[2024-10-24 00:20] LABS: Hepatitis B Surface Antigen Negative (Negative)
[2024-10-24 00:26] LABS: HAV RESULT Negative (Negative); Hepatitis B Core IgM Result Negative (Negative)
[2024-10-24 00:37] LABS: Hepatitis C Virus Antibody Negative (Negative)
[2024-10-24] MEDS: PANTOPRAZOLE 40 MG TABLET PO (00:43)
[2024-10-24 01:10] VITALS: BP 141/77; PULSE 81; RESP 16; TEMP 36.7; O2SAT 99
[2024-10-25 02:44] LABS: Ceruloplasmin 28 mg/dL (14-48)
== END 2024-10-24 01:18 | disposition home or self-care (01) ==
PROVIDERS: Emergency Provider Physician Assistant
DX: R11.2 Nausea with vomiting, unspecified (principal); R74.01 Elevation of levels of liver transaminase levels; I10 Essential (primary) hypertension; E78.5 Hyperlipidemia, unspecified; G47.30 Sleep apnea, unspecified; Z86.2 Personal history of diseases of the blood and blood-forming organs and certain disorders involving the immune mechanism
CPT/HCPCS: 36415; 74177; 80053; 80074; 80143; 81003; 82248; 82390; 83690; 83735; 85025; 85610; 85730; 96361; 96374; 99284; A9270; J7030; Q9967

== ENCOUNTER 2024-10-25 16:08 | Outpatient (CLI) | payer MEDICARE, SELFPAY ==
--- OUTSIDE RECORDS SUMMARY | 2024-10-25 16:17 | XMS_ITS | Patient Health Summary ---
Author Organization [facility] [employer] Address [address] [facility] [place] [address] Care Team Providers Care Communication Consultant Name Role Phone Estuardo Crandall MD Primary Care Provider [phone] Note from [facility],non-owned Affiliates and Associated Physician Practices is amultiple site organization consisting of ambulatory clinics and hospital sitesin [place], [place], [place] and [place]. This disclosure is being madepursuant to the Care Everywhere program and may not contain all information available regarding this patient. Last updated 18.[facility] Medications * Be aware that medications may [...] Sex Assigned at Female 11/08/2021 12:17 PM SPACE CONTROLLER Gender Identity Female 11/08/2021 12:17 PM SPACE CONTROLLER Sexual Orientation Straight 11/08/2021 12 :17 PM SPACE CONTROLLER Last Filed Vital Signs Vital Sign Reading [...] GROSS + MICRO EXAM (08/21/2003 12:00 AM SPACE CONTROLLER) Result CASE NUMBER [id number] Comment: ORDERING [...] SUBMITTED IN ENTIRETY IN ONE CASSETTE E. [place] [place]IC [place]AM MICROSCOPIC SECTION OF THE BIOPSY [...] NOT SEEN. HELICOBACTER ORGANISMS ARE NOT IDENTIFIED. /[facility] [place] DIAGNOSIS I. SMALL BOWEL, BIOPSY -- NO PATHOLOGIC DIAGNOSIS II. GASTRIC NODULE BIOPSY -- NO PATHOLOGIC DIAGNOSIS III. GASTRIC, BIOPSY -- NO PATHOLOGIC DIAGNOSIS IV. GASTRIC, POLYP, BIOPSY -- CHRONIC GASTRITIS, MILD V. DISTAL ESOPHAGUS -- GASTRIC MUCOSA WITH ACUTE AND CHRONIC INFLAMMATION, MILD TO MODERATE. -- NEGATIVE FOR DYSPLASIA OR MALIGNANCY -- HELICOBACTER ORGANISMS NOT PRESENT. /[facility] [place] Released By DIANNA DUONG CPT Code 29414 X5 MISCELLANEOUS SAMPLE S / Unknown 08/21/2003 08/21/2003 12:37 PM SPACE CONTROLLER Historical Provider LAB - PATHOLOGY/C YTOLOGY ORDERABLES Care Teams Communication Consultant Relationship Specialty [place] [address] [address] PCP - General 05/06/19
--- OUTSIDE RECORDS SUMMARY | 2024-10-25 16:17 | XMS_ITS | Encounter Summary ---
Author Organization [employer] Address [address] [place] [address] Care Team Providers Care Timber Cruiser Name Role Phone Kylie Reynolds MD Primary Care Provider Unavailab le Encounter Details Date Type Department Care Team (Late st Contact Info) Description 01/22/2007 Outpatient [facility] [address] [place] [address] [place] [address] Fely Dalton MD Social History Tobacco Use Types Packs/Day Years Used Date Smoking Tobacco: Never Assessed Comments Unknown Sex and Gender Information Value Date Recorded Sex Assigned at Not on file Legal Sex Female 5:26 AM OPERATOR TECHNICIAN Gender Identity Not on file Sexual Orientation Not on file documented as of this encounter Plan of Treatment Not on file documented as of this encounter Visit Diagnoses Not on filedocumented in this encounter Care Teams Timber Cruiser Relationship Specialty Start Date End Date Kylie Reynolds MD NO ADDRESS ON FILE PCP - General 01/23/01 02/25/16 documented as of this encounter
--- OUTSIDE RECORDS SUMMARY | 2024-10-25 16:17 | XMS_ITS | Encounter Summary ---
Author Organization [facility] Address [address] [place] [address] Care Team Providers Care Milieu Counselor Name Role Phone Kylie Reynolds MD Primary Care Provider Unavail le Encounter Details Date Type Department Care Team (Late st Contact Info) Description 10/23/2007 Outpatient Historical [facility] [place] [address] [place] [address] [place] [address] [facility] [address] [place] [address] Social History Tobacco Use Types Packs/Day Years Used Date Smoking Tobacco: Never Assessed Comments Unknown Sex and Gender Information Value Date Recorded Sex Assigned at Not on file Legal Sex Female 5:26 AM GUITAR TECHNICIAN Gender Identity Not on file Sexual Orientation Not on file documented as of this encounter Plan of Treatment Not on file documented as of this encounter Visit Diagnoses Not on filedocumented in this encounter Care Teams Milieu Counselor Relationship Specialty Start Date End Date Kylie Reynolds MD NO ADDRESS ON FILE PCP - General 01/23/01 02/25/16 documented as of this encounter
--- OUTSIDE RECORDS SUMMARY | 2024-10-25 16:17 | XMS_ITS | Encounter Summary ---
Author Organization [employer] Address [address] [place] [address] Care Team Providers Care Nursing Administrator Name Role Phone Kylie Reynolds MD Primary Care Provider Unavailab le Encounter Details Date Type Department Care Team (Late st Contact Info) Description 11/22/2006 Outpatient Historical [facility] [address] [place] [address] [place] [address] Dov Joe MD Social History Tobacco Use Types Packs/Day Years Used Date Smoking Tobacco: Never Assessed Comments Unknown Sex and Gender Information Value Date Recorded Sex Assigned at Not on file Legal Sex Female 5:26 AM RN FIELD CASE MANAGER Gender Identity Not on file Sexual Orientation Not on file documented as of this encounter Plan of Treatment Not on file documented as of this encounter Visit Diagnoses Not on filedocumented in this encounter Care Teams Nursing Administrator Relationship Specialty Start Date End Date Kylie Reynolds MD NO ADDRESS ON FILE PCP - General 01/23/01 02/25/16 documented as of this encounter
--- OUTSIDE RECORDS SUMMARY | 2024-10-25 16:17 | XMS_ITS | Encounter Summary ---
Author Organization [facility] Address [address] [place] [address] Care Team Providers Care Shirt Closer Name Role Phone Kylie Reynolds MD Primary Care Provider Unavailab le Encounter Details Date Type Department Care Team (Late st Contact Info) Description 11/07/2007 Orders Only [facility] Medicine [place] [address] [place] [address] [address] [place] [address] Kylie Reynolds MD NO ADDRESS ON FILE Social History Tobacco Use Types Packs/Day Years Used Date Smoking Tobacco: Never Assessed Comments Unknown Sex and Gender Information Value Date Recorded Sex Assigned at Not on file Legal Sex Female 5:26 AM ROUTE RIDER Gender Identity Not on file Sexual Orientation Not on file documented as of this encounter Plan of Treatment Not on file documented as of this encounter Visit Diagnoses Not on filedocumented in this encounter Care Teams Shirt Closer Relationship Specialty Start Date End Date Kylie Reynolds MD NO ADDRESS ON FILE PCP - General 01/23/01 02/25/16 documented as of this encounter
--- OUTSIDE RECORDS SUMMARY | 2024-10-25 16:17 | XMS_ITS | Encounter Summary ---
Author Organization [employer] Address [address] [place] [address] Care Team Providers Care Textile Screen Printer Name Role Phone Kylie Reynolds MD Primary Care Provider Unavailab le Encounter Details Date Type Department Care Team (Late st Contact Info) Description 06/13/[address] [facility] [address] [place] [address] [place] [address] Fely Dalton MD Social History Tobacco Use Types Packs/Day Years Used Date Smoking Tobacco: Never Assessed Comments Unknown Sex and Gender Information Value Date Recorded Sex Assigned at Not on file Legal Sex Female 5:26 AM SENIOR SOLUTIONS ENGINEER Gender Identity Not on file Sexual Orientation Not on file documented as of this encounter Plan of Treatment Not on file documented as of this encounter Visit Diagnoses Not on filedocumented in this encounter Care Teams Textile Screen Printer Relationship Specialty Start Date End Date Kylie Reynolds MD NO ADDRESS ON FILE PCP - General 01/23/01 02/25/16 documented as of this encounter
--- OUTSIDE RECORDS SUMMARY | 2024-10-25 16:17 | XMS_ITS | Encounter Summary ---
Author Organization [facility] Address 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) Social History Tobacco Use Types Packs/Day Years Used Date Smoking Tobacco: Never Assessed Comments Unknown Sex and Gender Information Value Date Recorded Sex Assigned at Not on file Legal Sex Female 5:26 AM LAND MOBILE RADIO TECHNICIAN Gender Identity Not on file Sexual [...] ORDERABLES Final Resu lt Performing Organization Address [facility] Co de Phone Number [...] ORDERABLES Final Resul t Performing Organization Address [facility] Phone Number INTERFACE SYSTEM Refer to clinic/hospital department * TSH (07/07/2006 12:54 PM CDT) TSH 0.94 0.27 - 4.20 uU/mL INTERFACE SYSTEM 07/07/2006 12:5 4 PM CDT us Wiliam Arroyo MD CHEMISTRY ORDERABLES Final Resul t Performing Organization Address City/[facility]/ZIP Co de Phone Number INTERFACE SYSTEM Refer to clinic/hospital department * SEDIMENTATION RATE (07/07/2006 12:54 PM CDT) ESR (SEDIMENTATION RATE) 7 0 - 30 mm/hr INTERFACE SYSTEM 07/07/2006 12:5 4 PM CDT us Wiliam Arroyo MD HEMATOLOGY ORDERABLES Final Resu lt Performing Organization Address [facility] Co de Phone Number INTERFACE SYSTEM Refer to clinic/hospital department * TABITHA (07/07/2006 12:54 PM CDT) TABITHA SCREEN NEGATIVE NEGATIVE INTERFACE SYSTEM Comment: Lab test performed by: [facility] [address] [place] [address] MANSOOR NIEVES MD 07/07/2006 12:5 4 PM CDT us Wiliam Arroyo MD CHEMISTRY ORDERABLES Final Resul t Performing Organization Address [facility] Co de Phone Number INTERFACE SYSTEM Refer to clinic/hospital department * RHEUMATOID FACTOR (07/07/2006 12:54 PM CDT) RHEUMATOID FACTOR 11 IU/mL INTERFACE SYSTEM Comment:Reference Range: Les s than 14 IU/mL 07/07/2006 12:5 4 PM CDT us Wiliam Arroyo MD CHEMISTRY ORDERABLES Final Resul t Performing Organization Address [facility] de Phone Number INTERFACE SYSTEM Refer to clinic/hospital department documented in this encounter Visit Diagnoses Diagnosis Lumbosacral spondylosis without myelopathy- Primary documented in this encounter Care Teams Workers Compensation Defense Attorney Relationship Specialty Start Date End Date Kylie [place] MD NO ADDRESS ON FILE PCP - General 01/23/01 02/25/16 documented as of this encounter
--- OUTSIDE RECORDS SUMMARY | 2024-10-25 16:17 | XMS_ITS | Encounter Summary ---
Author Organization [facility] Address [address] [place] [address] Care Team Providers Care Black And White Printer Operator Name Role Phone Kylie [place] MD Primary Care Provider Unavail le Encounter Details Date Type Department Care Team (Late st Contact Info) Description 11/15/2006 Outpatient Historical [facility] RISK INTERN - Medical [address] [address] Yosvany Coppola MD [address] [place] [phone] Social History Tobacco Use Types Packs/Day Years Used Date Smoking Tobacco: Never Assessed Comments Unknown Sex and Gender Information Value Date Recorded Sex Assigned at Not on file Legal Sex Female 5:26 AM DISCHARGE RN Gender Identity Not on file Sexual Orientation Not on file documented as of this encounter Plan of Treatment Not on file documented as of this encounter Visit Diagnoses Not on filedocumented in this encounter Care Teams Black And White Printer Operator Relationship Specialty Start Date End Date Kylie [place] MD NO ADDRESS ON FILE PCP - General 01/23/01 02/25/16 documented as of this encounter
--- OUTSIDE RECORDS SUMMARY | 2024-10-25 16:17 | XMS_ITS | Encounter Summary ---
Author Organization [facility] Address [address] [place] [address] Care Team Providers Care Assembler Bicycle Name Role Phone Kylie [place] MD Primary Care Provider Unavail le Encounter Details Date Type Department Care Team (Late st Contact Info) Description 07/25/2007 [facility]patient [facility] [address] [place] [address] Kylie [place] MD NO ADDRESS ON FILE Social History Tobacco Use Types Packs/Day Years Used Date Smoking Tobacco: Never Assessed Comments Unknown Sex and Gender Information Value Date Recorded Sex Assigned at Not on file Legal Sex Female 5:26 AM MARKETING SERVICES SPECIALIST Gender Identity Not on file Sexual Orientation Not on file documented as of this encounter Last Filed Vital Signs Vital Sign Reading Time Taken Comments Blood Pressure 134/85 07/25/2007 11:45 AM MARKETING SERVICES SPECIALIST Pulse 77 07/25/2007 11:45 AM MARKETING SERVICES SPECIALIST Temperature 36.1 C (96.9 F) 07/25/2007 11:45 AM MARKETING SERVICES SPECIALIST Respiratory Rate - - Oxygen Saturation - - Inhaled Oxygen Concentration - - Weight 60.8 kg (134 lb) 07/25/2007 11:45 AM MARKETING SERVICES SPECIALIST Height - - Body Mass Index - - documented in this encounter Plan of Treatment Not on file documented as of this encounter Visit Diagnoses Not on filedocumented in this encounter Care Teams Assembler Bicycle Relationship Specialty Start Date End Date Kylie [place] MD NO ADDRESS ON FILE PCP - General 01/23/01 02/25/16 documented as of this encounter
--- OUTSIDE RECORDS SUMMARY | 2024-10-25 16:17 | XMS_ITS | Encounter Summary ---
Author Organization [employer] Address [address] [place] [address] Care Team Providers Care Diagnostic Tech Name Role Phone Kylie [place] MD Primary Care Provider Unavail le Encounter Details Date Type Department Care Team (Latest Contact Info) Description 07/13/2006 Outpatient Historical [facility] [place] [address] [address] Disturbance of Skin Sensation (Primary Dx) Social History Tobacco Use Types Packs/Day Years Used Date Smoking Tobacco: Never Assessed Comments Unknown Sex and Gender Information Value Date Recorded Sex Assigned at Not on file Legal Sex Female 5:26 AM ORTHOPEDIC ASSISTANT Gender Identity Not on file Sexual Orientation Not on file documented as of this encounter Plan of Treatment Not on file documented as of this encounter Visit Diagnoses Diagnosis Disturbance of skin sensation- Primary documented in this encounter Care Teams Diagnostic Tech Relationship Specialty Start Date End Date Kylie [place] MD NO ADDRESS ON FILE PCP - General 01/23/01 02/25/16 documented as of this encounter
--- OUTSIDE RECORDS SUMMARY | 2024-10-25 16:17 | XMS_ITS | Encounter Summary ---
Author Organization [employer] Address [address] [place] [address] Care Team Providers Care Toolroom Checker Name Role Phone Kylie [place] MD Primary Care Provider Unavailab le Encounter Details Date Type Department Care Team (Late st Contact Info) Description 07/13/2006 Outpatient Historical [facility] [place] [address] [place] [address] [place] [address] [place] [address] Social History Tobacco Use Types Packs/Day Years Used Date Smoking Tobacco: Never Assessed Comments Unknown Sex and Gender Information Value Date Recorded Sex Assigned at Not on file Legal Sex Female 5:26 AM STATEMENT CLERKS MANAGER Gender Identity Not on file Sexual Orientation Not on file documented as of this encounter Plan of Treatment Not on file documented as of this encounter Visit Diagnoses Not on filedocumented in this encounter Care Teams Toolroom Checker Relationship Specialty Start Date End Date Kylie [place] MD NO ADDRESS ON FILE PCP - General 01/23/01 02/25/16 documented as of this encounter
--- OUTSIDE RECORDS SUMMARY | 2024-10-25 16:17 | XMS_ITS | Encounter Summary ---
Author Organization [facility] Address [address] [place] [address] Care Team Providers Care Cattle Sticker Name Role Phone Kylie [place] MD Primary Care Provider Unavailab le Encounter Details Date Type Department Care Team (Late st Contact Info) Description 06/19/2006 Orders Only [facility] Medicine [place] [address] [facility] [address] [place] [address] Kylie [place] MD NO ADDRESS ON FILE Social History Tobacco Use Types Packs/Day Years Used Date Smoking Tobacco: Never Assessed Comments Unknown Sex and Gender Information Value Date Recorded Sex Assigned at Not on file Legal Sex Female 5:26 AM CENTRIFUGAL MACHINE TENDER Gender Identity Not on file Sexual [...] the hands. OFFICE PROCEDURES: EAR LAVAGE/CERUMEN REMOVAL 81708:Ear lavage performed on patient. The patient's cerumen impaction has improved. ASSESSMENT/PLAN: 380.4-CERUMEN IMPACTION LAB ORDERS: Order number: [id number] Test Ordered: CERUMEN IMPACTION REMOVAL 39050 729.5-PAIN LIMB (LEG OR ARM) anxiety. try xanax at bedtime. address with psychiatrist MEDICATIONS: XANAX ORAL TABLET 0.5 MG, 1 Every Day At Bedtime, As Needed, stephy # [id number], 30 Dispensed, status:NEW PRESCRIPTION, 06/19/2006. Electronically Signed by: Kylie [place] MD on Tuesday, June 20, 2006 documented in this encounter Plan of Treatment Not on file documented as of this encounter Visit Diagnoses Not on filedocumented in this encounter Care Teams Cattle Sticker Relationship Specialty Start Date End Date Kylie [place] MD NO ADDRESS ON FILE PCP - General 01/23/01 02/25/16 documented as of this encounter
--- OUTSIDE RECORDS SUMMARY | 2024-10-25 16:17 | XMS_ITS | Encounter Summary ---
Author Organization [employer] Address [address] [place] [address] Care Team Providers Care Zoo Keeper Name Role Phone Kylie [place] MD Primary Care Provider Unavailab le Encounter Details Date Type Department Care Team (Late st Contact Info) Description 12/03/2006 Outpatient [facility] [address] [place] [address] [place] [address] Fely Dalton MD Social History Tobacco Use Types Packs/Day Years Used Date Smoking Tobacco: Never Assessed Comments Unknown Sex and Gender Information Value Date Recorded Sex Assigned at Not on file Legal Sex Female 5:26 AM BUSINESS ANALYTICS ANALYST Gender Identity Not on file Sexual Orientation Not on file documented as of this encounter Plan of Treatment Not on file documented as of this encounter Visit Diagnoses Not on filedocumented in this encounter Care Teams Zoo Keeper Relationship Specialty Start Date End Date Kylie [place] MD NO ADDRESS ON FILE PCP - General 01/23/01 02/25/16 documented as of this encounter
--- OUTSIDE RECORDS SUMMARY | 2024-10-25 16:17 | XMS_ITS | Encounter Summary ---
Author Organization [facility] Address [address] [place] [address] Care Team Providers Care Excellence Specialist Name Role Phone Kylie [place] MD Primary Care Provider Unavailab le Encounter Details Date Type Department Care Team (Late st Contact Info) Description 12/07/2006 Orders Only [facility] [place] [address] [place] [phone] Mack Ulrich MD [address] [place] [address] Social History Tobacco Use Types Packs/Day Years Used Date Smoking Tobacco: Never Assessed Comments Unknown Sex and Gender Information Value Date Recorded Sex Assigned at Not on file Legal Sex Female 5:26 AM STIFF LEG OPERATOR Gender Identity Not on file Sexual Orientation Not on file documented as of this encounter Progress Notes * Mack [place] MD - 02/08/2008 1:15 PM CDT NURSE NAME: Madison Staley PULSE: 70. Right Radial, Regular TEMPERATURE: 97.6??f. Oral WEIGHT: [id number]. BLOOD PRESSURE: 113/69. Right Arm Sitting ALLERGIES: [...] on filedocumented in this encounter Care Teams Excellence Specialist Relationship Specialty Start Date End Date Kylie [place] MD NO ADDRESS ON FILE PCP - General 01/23/01 02/25/16 documented as of this encounter
--- OUTSIDE RECORDS SUMMARY | 2024-10-25 16:17 | XMS_ITS | Encounter Summary ---
Author Organization [employer] Address [address] [place] [address] Care Team Providers Care Drywall Taper Helper Name Role Phone Kylie [place] MD Primary Care Provider Unavailab le Encounter Details Date Type Department Care Team (Late st Contact Info) Description 12/21/2007 Outpatient Historical [facility] Bib Serna MD [address] [place] [address] Social History Tobacco Use Types Packs/Day Years Used Date Smoking Tobacco: Never Assessed Comments Unknown Sex and Gender Information Value Date Recorded Sex Assigned at Not on file Legal Sex Female 5:26 AM VISCERA WASHER Gender Identity Not on file Sexual Orientation Not on file documented as of this encounter Plan of Treatment Not on file documented as of this encounter Visit Diagnoses Not on filedocumented in this encounter Care Teams Drywall Taper Helper Relationship Specialty Start Date End Date Kylie [place] MD NO ADDRESS ON FILE PCP - General 01/23/01 02/25/16 documented as of this encounter
--- OUTSIDE RECORDS SUMMARY | 2024-10-25 16:17 | XMS_ITS | Encounter Summary ---
Author Organization [facility] Address [address] [place] [address] Care Team Providers Care Military Lawyer Name Role Phone Kylie [place] MD Primary Care Provider Unavail le Encounter Details Date Type Department Care Team (Late st Contact Info) Description 10/23/2007 Outpatient Historical [facility] Family Medicine [place] [address] [place] [address] [place] [address] [facility] [address] [place] [address] Social History Tobacco Use Types Packs/Day Years Used Date Smoking Tobacco: Never Assessed Comments Unknown Sex and Gender Information Value Date Recorded Sex Assigned at Not on file Legal Sex Female 5:26 AM DIGITAL MEDIA MANAGER Gender Identity Not on file Sexual Orientation Not on file documented as of this encounter Plan of Treatment Not on file documented as of this encounter Visit Diagnoses Not on filedocumented in this encounter Care Teams Military Lawyer Relationship Specialty Start Date End Date Kylie [place] MD NO ADDRESS ON FILE PCP - General 01/23/01 02/25/16 documented as of this encounter
--- OUTSIDE RECORDS SUMMARY | 2024-10-25 16:17 | XMS_ITS | Encounter Summary ---
Author Organization [facility] Address [address] [place] [address] Care Team Providers Care Pbx Manager Name Role Phone Kylie [place] MD Primary Care Provider Unavailab le Encounter Details Date Type Department Care Team (Late st Contact Info) Description 08/27/2007 Orders Only [facility] Medicine [place] [address] [place] [address] [address] [place] [address] Kylie [place] MD NO ADDRESS ON FILE Social History Tobacco Use Types Packs/Day Years Used Date Smoking Tobacco: Never Assessed Comments Unknown Sex and Gender Information Value Date Recorded Sex Assigned at Not on file Legal Sex Female 5:26 AM MOLECULAR PATHOLOGIST Gender Identity Not on file Sexual Orientation Not on file documented as of this encounter Plan of Treatment Not on file documented as of this encounter Visit Diagnoses Not on filedocumented in this encounter Care Teams Pbx Manager Relationship Specialty Start Date End Date Kylie [place] MD NO ADDRESS ON FILE PCP - General 01/23/01 02/25/16 documented as of this encounter
--- OUTSIDE RECORDS SUMMARY | 2024-10-25 16:17 | XMS_ITS | Encounter Summary ---
Author Organization [facility] Address [address] [place] [address] Care Team Providers Care Char Filter Tank Tender Head Name Role Phone Kylie [place] MD Primary Care Provider Brennan le Encounter Details Date Type Department Care Team (Latest Contact Info) Description 08/17/2006 Outpatient Historical HIS [facility] [address] [address] Degeneration of Cervical Intervertebral Disc (Primary Dx) Social History Tobacco Use Types Packs/Day Years Used Date Smoking Tobacco: Never Assessed Comments Unknown Sex and Gender Information Value Date Recorded Sex Assigned at Not on file Legal Sex Female 5:26 AM SOLID DIE CUTTER Gender Identity Not on file Sexual Orientation Not on file documented as of this encounter Plan of Treatment Not on file documented as of this encounter Visit Diagnoses Diagnosis Degeneration of cervical intervertebral disc- Primary documented in this encounter Care Teams Char Filter Tank Tender Head Relationship Specialty Start Date End Date Kylie [place] MD NO ADDRESS ON FILE PCP - General 01/23/01 02/25/16 documented as of this encounter
--- OUTSIDE RECORDS SUMMARY | 2024-10-25 16:17 | XMS_ITS | Encounter Summary ---
Author Organization [facility] Address [address] [place] [address] Care Team Providers Care Insulator Apprentice Name Role Phone Kylie [place] MD Primary Care Provider Unavail le Encounter Details Date Type Department Care Team (Late st Contact Info) Description 08/02/2006 Outpatient Historical [facility] [address] [address] Ray Hussein MD [address] [facility] [address] [place] [address] Social History Tobacco Use Types Packs/Day Years Used Date Smoking Tobacco: Never Assessed Comments Unknown Sex and Gender Information Value Date Recorded Sex Assigned at Not on file Legal Sex Female 5:26 AM BRUSH OR BROOM CUTTER Gender Identity Not on file Sexual Orientation Not on file documented as of this encounter Plan of Treatment Not on file documented as of this encounter Visit Diagnoses Not on filedocumented in this encounter Care Teams Insulator Apprentice Relationship Specialty Start Date End Date Kylie [place] MD NO ADDRESS ON FILE PCP - General 01/23/01 02/25/16 documented as of this encounter
--- OUTSIDE RECORDS SUMMARY | 2024-10-25 16:17 | XMS_ITS | Encounter Summary ---
Author Organization [facility] Address [address] [place] [address] Care Team Providers Care Jewelry Department Supervisor Name Role Phone Kylie [place] MD Primary Care Provider Unavail le Encounter Details Date Type Department Care Team (Late st Contact Info) Description 10/23/2007 Outpatient Historical [facility] Family Medicine [place] [address] [place] [address] [place] [address] [facility] [address] [place] [address] Social History Tobacco Use Types Packs/Day Years Used Date Smoking Tobacco: Never Assessed Comments Unknown Sex and Gender Information Value Date Recorded Sex Assigned at Not on file Legal Sex Female 5:26 AM FURNACE MECHANIC HELPER Gender Identity Not on file Sexual Orientation Not on file documented as of this encounter Plan of Treatment Not on file documented as of this encounter Visit Diagnoses Not on filedocumented in this encounter Care Teams Jewelry Department Supervisor Relationship Specialty Start Date End Date Kylie [place] MD NO ADDRESS ON FILE PCP - General 01/23/01 02/25/16 documented as of this encounter
--- OUTSIDE RECORDS SUMMARY | 2024-10-25 16:17 | XMS_ITS | Encounter Summary ---
Author Organization [facility] Address [address] [place] [address] Care Team Providers Care Dry Kiln Feeder Name Role Phone Kylie [place] MD Primary Care Provider Unavailab le Encounter Details Date Type Department Care Team (Late st Contact Info) Description 09/25/2006 Orders Only [facility] Medicine [place] [address] [place] [address] [address] [place] [address] Mack Ulrich MD [address] [place] [address] Social History Tobacco Use Types Packs/Day Years Used Date Smoking Tobacco: Never Assessed Comments Unknown Sex and Gender Information Value Date Recorded Sex Assigned at Not on file Legal Sex Female 5:26 AM HOURLY ASSOCIATE Gender Identity Not on file Sexual Orientation Not on file documented as of this encounter Plan of Treatment Not on file documented as of this encounter Visit Diagnoses Not on filedocumented in this encounter Care Teams Dry Kiln Feeder Relationship Specialty Start Date End Date Kylie [place] MD NO ADDRESS ON FILE PCP - General 01/23/01 02/25/16 documented as of this encounter
--- OUTSIDE RECORDS SUMMARY | 2024-10-25 16:17 | XMS_ITS | Encounter Summary ---
Author Organization [email or web address] Address [address] [place] [address] Care Team Providers Care Automotive Electrical Helper Name Role Phone Kylie [place] MD Primary Care Provider Unavailab le Encounter Details Date Type Department Care Team (Late st Contact Info) Description 12/10/2007 Outpatient [facility] [address] [place] [address] [place] [address] Fely Dalton MD Social History Tobacco Use Types Packs/Day Years Used Date Smoking Tobacco: Never Assessed Comments Unknown Sex and Gender Information Value Date Recorded Sex Assigned at Not on file Legal Sex Female 5:26 AM MEDICAL EDUCATION COORDINATOR Gender Identity Not on file Sexual Orientation Not on file documented as of this encounter Plan of Treatment Not on file documented as of this encounter Visit Diagnoses Not on filedocumented in this encounter Care Teams Automotive Electrical Helper Relationship Specialty Start Date End Date Kylie [place] MD NO ADDRESS ON FILE PCP - General 01/23/01 02/25/16 documented as of this encounter
--- OUTSIDE RECORDS SUMMARY | 2024-10-25 16:17 | XMS_ITS | Encounter Summary ---
Author Organization [facility] Address [address] [place] [address] Care Team Providers Care Cane Cutter Name Role Phone Kylie Reynolds MD Primary Care Provider Brennan hagan Encounter Details Date Type Department Care Team (Latest Contact Info) Description 10/25/2007 Outpatient Historical [facility] [place] [id number] [place] [address] [address] [place] [address] Kylie Reynolds MD NO ADDRESS ON FILE Other and Unspecified Hyperlipidemia Social History Tobacco Use Types Packs/Day Years Used Date Smoking Tobacco: Never Assessed Comments Unknown Sex and Gender Information Value Date Recorded Sex Assigned at Not on file Legal Sex Female 5:26 AM ASSET PROTECTION OFFICER Gender Identity Not on file Sexual Orientation Not on file documented as of this encounter Plan of Treatment Not on file documented as of this encounter Procedures Procedure Name Priority Date/Time Associated Diagnosis Comments URINALYSIS W/REFLEX MICROSCOPIC Routine 10/25/2007 11:04 AM ASSET PROTECTION OFFICER LIPID PANEL Routine 10/25/2007 11:04 AM ASSET PROTECTION OFFICER COMPREHENSIVE METABOLIC PANEL Routine 10/25/2007 11:04 AM ASSET PROTECTION OFFICER documented in this encounter Results * (ABNORMAL) URINALYSIS (10/25/2007 11:04 AM ASSET PROTECTION OFFICER) COLOR UA Yellow INTERFACE SYSTEM CLARITY UA [...] INTERF MARILOU SYSTEM 10/25/2007 11:0 4 AM ASSET PROTECTION OFFICER us Kylie Reynolds MD URINE ORDERABLES Final Result INTERFACE SYSTEM Refer to clinic/hospital department * (ABNORMAL) COMPREHENSIVE METABOLIC PANEL (10/25/2007 11:04 AM ASSET PROTECTION OFFICER) GLUCOSE 88 65 - 99 mg/dL INTERFACE [...] available on the [facility] Intranet at: [email or web address] Select: Lab Policies and Procedures Select: Reference Ranges - GFR 10/25/2007 11:0 4 AM ASSET PROTECTION OFFICER us Kylie Reynolds MD CHEMISTRY ORDERABLES Final Resul t Performing Organization Address [facility] de Phone Number INTERFACE SYSTEM Refer to clinic/hospital department * (ABNORMAL) LIPID PANEL (10/25/2007 11:04 AM ASSET PROTECTION OFFICER) CHOLESTEROL 190 100 - 199 mg/dL INTERFACE [...] available on the [facility] Intranet at: [email or web address] Select: Lab Policies and Procedures,Current Select: Lipid Panel Interpretation 10/25/2007 11:0 4 AM ASSET PROTECTION OFFICER us Kylie Reynolds MD CHEMISTRY ORDERABLES Final Resul t Performing Organization Address [facility] [place] Phone Number INTERFACE SYSTEM Refer to clinic/hospital department documented in this encounter Visit Diagnoses Diagnosis Other and unspecified hyperlipidemia documented in this encounter Care Teams Cane Cutter Relationship Specialty Start Date End Date Kylie Reynolds MD NO ADDRESS ON FILE PCP - General 01/23/01 02/25/16 documented as of this encounter
--- OUTSIDE RECORDS SUMMARY | 2024-10-25 16:17 | XMS_ITS | Encounter Summary ---
Author Organization [facility] Address [address] [place] [address] Care Team Providers Care Car Spotter Name Role Phone Kylie Reynolds MD Primary Care Provider Brennan hagan Encounter Details Date Type Department Care Team (Late st Contact Info) Description 12/07/2006 Outpatient Historical [facility] Family Medicine [address] [place] [address] Mack Ulrich MD [address] [place] [address] Social History Tobacco Use Types Packs/Day Years Used Date Smoking Tobacco: Never Assessed Comments Unknown Sex and Gender Information Value Date Recorded Sex Assigned at Not on file Legal Sex Female 5:26 AM ACQUISITIONS ASSISTANT Gender Identity Not on file Sexual [...] on filedocumented in this encounter Care Teams Car Spotter Relationship Specialty Start Date End Date Kylie Reynolds MD NO ADDRESS ON FILE PCP - General 01/23/01 02/25/16 documented as of this encounter
--- OUTSIDE RECORDS SUMMARY | 2024-10-25 16:17 | XMS_ITS | Encounter Summary ---
Author Organization [facility] Address [address] [place] [address] Care Team Providers Care Mandrel Press Hand Name Role Phone Kylie Reynolds MD Primary Care Provider Unavailab le Encounter Details Date Type Department Care Team (Late st Contact Info) Description 10/19/2006 Orders Only [facility] [place] [id number] [place] [address] [address] [place] [address] Kylie Reynolds MD NO ADDRESS ON FILE Social History Tobacco Use Types Packs/Day Years Used Date Smoking Tobacco: Never Assessed Comments Unknown Sex and Gender Information Value Date Recorded Sex Assigned at Not on file Legal Sex Female 5:26 AM SEALING MACHINE OPERATOR Gender Identity Not on file Sexual Orientation Not on file documented as of this encounter Plan of Treatment Not on file documented as of this encounter Visit Diagnoses Not on filedocumented in this encounter Care Teams Mandrel Press Hand Relationship Specialty Start Date End Date Kylie Reynolds MD NO ADDRESS ON FILE PCP - General 01/23/01 02/25/16 documented as of this encounter
--- OUTSIDE RECORDS SUMMARY | 2024-10-25 16:17 | XMS_ITS | Encounter Summary ---
Author Organization [facility] Address [address] [place] [address] Care Team Providers Care Pond Scaler Name Role Phone Kylie Reynolds MD Primary Care Provider Unavail le Encounter Details Date Type Department Care Team (Late st Contact Info) Description 10/23/2007 Outpatient Historical [facility] Family Medicine [place] [id number] [place] [address] [place] [address] [facility] [address] [place] [address] Social History Tobacco Use Types Packs/Day Years Used Date Smoking Tobacco: Never Assessed Comments Unknown Sex and Gender Information Value Date Recorded Sex Assigned at Not on file Legal Sex Female 5:26 AM MUSIC PUBLISHER Gender Identity Not on file Sexual Orientation Not on file documented as of this encounter Plan of Treatment Not on file documented as of this encounter Visit Diagnoses Not on filedocumented in this encounter Care Teams Pond Scaler Relationship Specialty Start Date End Date Kylie Reynolds MD NO ADDRESS ON FILE PCP - General 01/23/01 02/25/16 documented as of this encounter
--- OUTSIDE RECORDS SUMMARY | 2024-10-25 16:17 | XMS_ITS | Encounter Summary ---
Author Organization [facility] Address [address] [place] [address] Care Team Providers Care Rehabilitation Consultant Name Role Phone Kylie Reynolds MD Primary Care Provider Brennan hagan Encounter Details Date Type Department Care Team (Latest Contact Info) Description 07/20/2006 Outpatient Historical [facility] Family Medicine [address] [place] [address] Kylie Reynolds MD NO ADDRESS ON FILE Other and Unspecified Hyperlipidemia (Primary Dx) Social History Tobacco Use Types Packs/Day Years Used Date Smoking Tobacco: Never Assessed Comments Unknown Sex and Gender Information Value Date Recorded Sex Assigned at Not on file Legal Sex Female 5:26 AM TITLE EXAMINER Gender Identity Not on file Sexual Orientation Not on file documented as of this encounter Plan of Treatment Not on file documented as of this encounter Procedures Procedure Name Priority Date/Time Associated Diagnosis Comments URINALYSIS W/REFLEX MICROSCOPIC Routine 07/20/2006 10:19 AM TITLE EXAMINER LIPID PANEL Routine 07/20/2006 10:19 AM TITLE EXAMINER documented in this encounter Results * (ABNORMAL) URINALYSIS (07/20/2006 10:19 AM TITLE EXAMINER) COLOR UA Yellow INTERFACE SYSTEM CLARITY UA [...] /HPF INTERFACE SYSTEM 07/20/2006 10:1 9 AM TITLE EXAMINER us Kylie Reynolds MD URINE ORDERABLES Final Result Performing Organization Address [facility] Phone Number INTERFACE SYSTEM Refer to clinic/hospital department * (ABNORMAL) LIPID PANEL (07/20/2006 10:19 AM TITLE EXAMINER) CHOLESTEROL 206(H) 100 - 199 mg/dL INTERFACE SYSTEM TRIGLYCERIDE 61 10 - 149 mg/dL INTERFACE SYSTEM HDL 84(H) 40 - 59 mg/dL INTERFACE SYSTEM CHOL/HDL RATIO 2.5 2.0 - 5.0 INTER FACE SYSTEM LDL CALCULATED 110(H) <=99 mg/dL INTERFACE SYSTEM LIPID PANEL COMMENT See Below INTERFACE SYSTEM Comment: The adult ATP and pediatric NCEP classifications for lipids are available on the [facility] Intranet at: [email or web address] Select: Lab Policies and Procedures Select: Reference Ranges - Lipids 07/20/2006 10:1 9 AM TITLE EXAMINER Kylie Reynolds MD CHEMISTRY ORDERABLES Final Resul t Performing Organization Address [facility] Co de Phone Number INTERFACE SYSTEM Refer to clinic/hospital department documented in this encounter Visit Diagnoses Diagnosis Other and unspecified hyperlipidemia- Primary documented in this encounter Care Teams Rehabilitation Consultant Relationship Specialty Start Date End Date Kylie Reynolds MD NO ADDRESS ON FILE PCP - General 01/23/01 02/25/16 documented as of this encounter
--- OUTSIDE RECORDS SUMMARY | 2024-10-25 16:18 | XMS_ITS | Encounter Summary ---
Author Organization [employer] Address [address] [place] [address] Care Team Providers Care Offset Plate Preparation Supervisor Name Role Phone Kylie Reynolds MD [...] on file Legal Sex Female 5:26 AM ANIMAL HOSPITAL OFFICE SUPERVISOR Gender Identity Not on file Sexual Orientation Not on file documented as of this encounter Plan of Treatment Not on file documented as of this encounter Visit Diagnoses Diagnosis Chest pain, unspecified- Primary documented in this encounter Care Teams Offset Plate Preparation Supervisor Relationship Specialty Start Date End Date Kylie Reynolds MD NO ADDRESS ON FILE PCP - General 01/23/01 02/25/16 documented as of this encounter
--- OUTSIDE RECORDS SUMMARY | 2024-10-25 16:18 | XMS_ITS | Encounter Summary ---
Author Organization [facility] Address [address] [place] [address] Care Team Providers Care Cotton Gin Yard Supervisor Name Role Phone Kylie Reynolds MD Primary Care Provider Unavailab le Encounter Details Date Type Department Care Team (Late st Contact Info) Description 07/19/[address]patient [address] [facility] Medicine [address] [place] [address] Kylie Reynolds MD NO ADDRESS ON FILE Social History Tobacco Use Types Packs/Day Years Used Date Smoking Tobacco: Never Assessed Comments Unknown Sex and Gender Information Value Date Recorded Sex Assigned at Not on file Legal Sex Female 5:26 AM AUGER SUPERVISOR Gender Identity Not on file Sexual Orientation Not on file documented as of this encounter Plan of Treatment Not on file documented as of this encounter Visit Diagnoses Not on filedocumented in this encounter Care Teams Cotton Gin Yard Supervisor Relationship Specialty Start Date End Date Kylie Reynolds MD NO ADDRESS ON FILE PCP - General 01/23/01 02/25/16 documented as of this encounter
--- OUTSIDE RECORDS SUMMARY | 2024-10-25 16:18 | XMS_ITS | Encounter Summary ---
Author Organization [employer] Address [address] [place] [address] Care Team Providers Care Yeast Washer Name Role Phone Kylie Reynolds MD Primary Care Provider Brennan hagan Encounter Details Date Type Department Care Team (Latest Contact Info) Description 06/17/2004 Outpatient Historical [facility] Kylie Gorman MD NO ADDRESS ON FILE ANEMIA NOS (Primary Dx) Social History Tobacco Use Types Packs/Day Years Used Date Smoking Tobacco: Never Assessed Comments Unknown Sex and Gender Information Value Date Recorded Sex Assigned at Not on file Legal Sex Female 5:26 AM GAS PROCESSING PLANT OPERATOR Gender Identity Not on file Sexual Orientation Not on file documented as of this encounter Plan of Treatment Not on file documented as of this encounter Visit Diagnoses Diagnosis Anemia, unspecified- Primary documented in this encounter Care Teams Yeast Washer Relationship Specialty Start Date End Date Kylie Reynolds MD NO ADDRESS ON FILE PCP - General 01/23/01 02/25/16 documented as of this encounter
--- OUTSIDE RECORDS SUMMARY | 2024-10-25 16:18 | XMS_ITS | Encounter Summary ---
Author Organization [facility] Address [address] [facility] [place] [address] Phone Care Team Providers Care Postpartum Nurse Name Role Phone Ramin Angeles DO Unavailable [phone] Jeniffer Burciaga MD Primary Care Provider [phone] Lizz Mccauley RN Unavailable Unavailable Lincoln Simpson DPM Unavailable Unavailable Provider, None Primary Care Provider Unavailabl e Martín Cuenca MD Primary Care Provider [phone] Bairon Ryan MD Unavailable [phone] Larisa Eisenberg SENIOR NET PROGRAMMER, ONCOLOGY CONSULTANT Unavailable + [phone] Cynthia Woody SENIOR NET PROGRAMMER, ONCOLOGY CONSULTANT Primary Care Provider + Elio Monae MD Unavailable Gorge Morel MD Primary Care Provider + [phone] Reason for Visit * Reason Comments Medication Refill Encounter Details Date Type Department Care Team (Late st Contact Info) Description 12/09/2021 Refill [facility] [address] [place] [address] Jeniffer Burciaga MD [address] [place] [address] Medication Refill Social History Tobacco Use Types [...] Care Team (Late st Contact Info) Description 11/13/2024 8:00 AM IT OPERATIONS ANALYST Procedure Visit [facility] [address] [place] [address] Davion Alicea MD [address] [phone] 12/18/2024 10:30 AM CDT Office Visit [facility] [address] [place] [address] Cynthia Woody APRN, ONCOLOGY CONSULTANT [address] [place] [address] 03/10/2025 1:00 PM CDT [facility] [address] [place] [address] Gilmar Bond MD [address] [place] [address] Discharge Disposition: Discharged to home or Selfcare documented as of this encounter Visit Diagnoses Not on filedocumented in this encounter Additional Health Concerns Assessment Noted Time PHQ-9 Depression Total Score: 0 04/12/20 18 2:00 PM CDT documented as of this encounter Care Teams Postpartum Nurse Relationship Specialty Start Date End Date Jeniffer Burciaga MD [address] [place] [address] PCP - General Family Medicine 02/10/16 09/06/23 Provider, None [place] PCP - General 09/07/23 10/05/23 Martín Cuenca MD [address] [place] [address] PCP - General Family Medicine 10/06/23 02/05/24 Cynthia Woody APRN, ONCOLOGY CONSULTANT [address] [place] [address] PCP - General Advanced Practice Nurse 02/07/24 Gorge Morel MD [address] [place] [address] PCP - General Infectious Disease 10/15/24 Ramin Angeles DO Consulting Physician Gastroenterology 01/14/16 08/20/24 Lizz Mccauley RN [place] Garbage Truck Helper 12/15/21 08/07/22 Lincoln Simpson DPM Podiatry 03/30/22 Bairon Ryan MD [address] [place] [address] Consulting Physician Neurology 09/07/23 Larisa Eisenberg APRN, ONCOLOGY CONSULTANT [address] [address] Nurse Practitioner Advanced Practice Nurse 01/26/24 Elio Monae MD [address] [place] [address] Consulting Physician Pulmonary Disease 06/05/24 documented as of this encounter
--- OUTSIDE RECORDS SUMMARY | 2024-10-25 16:18 | XMS_ITS | Encounter Summary ---
Author Organization [facility] Address [address] [facility] [place] [address] Phone Care Team Providers Care Commercial Assistant Name Role Phone Ramin Angeles DO Unavailable [phone] Jeniffer Burciaga MD Primary Care Provider [phone] Lincoln Simpson DPM Unavailable Unavailable Provider, None Primary Care Provider Unavailabl e Martín Cuenca MD Primary Care Provider [phone] Bairon Ryan MD Unavailable [phone] Larisa iEsenberg ABALONE SHELLER, LOAD OUT SUPERVISOR Unavailable + [phone] Cynthia Woody ABALONE SHELLER, LOAD OUT SUPERVISOR Primary Care Provider + Elio Monae MD Unavailable Gorge Morel MD Primary Care Provider + [phone] Reason for Visit * Reason Comments Medication Refill Encounter Details Date Type Department Care Team (Late st Contact Info) Description 01/10/2023 Refill [facility] [address] [place] [address] Jeniffer Burciaga MD [address] [place] [address] Medication Refill Social History Tobacco Use Types [...] [place] 09/28/22 Office Visit Cynthia Woody APRN, LOAD OUT SUPERVISOR Brock Ramos 06/01/22 Office Visit [facility] [...] 09/28/22 Office Visit Cynthia Woody APRN, NADIRA Ramos 06/01/22 Office Visit Jen[facility] [...] st Contact Info) Description 11/13/2024 8:00 AM FRONT SIGHT ATTACHER Procedure [facility] [address] [place] [address] Davion Alicea MD [address] [address] 12/18/2024 10:30 AM CDT Office Visit [facility] Family [facility] [address] [place] [address] Cynthia Woody, ABALONE SHELLER, LOAD OUT SUPERVISOR [address] [place] [address] 03/10/2025 1:00 PM CDT [facility] [address] [place] [address] Gilmar Bond MD [address] [place] [address] Discharge Disposition: Discharged to home or Selfcare documented as of this encounter Visit Diagnoses Not on filedocumented in this encounter Additional Health Concerns Assessment Noted Time PHQ-9 Depression Total Score: 0 04/12/20 18 2:00 PM CDT documented as of this encounter Care Teams Commercial Assistant Relationship Specialty Start Date End Date Jeniffer Burciaga MD [address] [place] [address] PCP - General Family Medicine 02/10/16 09/06/23 Provider, None [place] PCP - General 09/07/23 10/05/23 Martín Cuenca MD [address] [place] [address] PCP - General Family Medicine 10/06/23 02/05/24 Cynthia Woody APRN, LOAD OUT SUPERVISOR [address] [place] [address] PCP - General Advanced Practice Nurse 02/07/24 [place] [place] [address] PCP - General Infectious Disease 10/15/24 Ramin Angeles DO Consulting Physician Gastroenterology 01/14/16 08/20/24 Lincoln Simpson DPM Podiatry 03/30/22 Bairon Ryan MD [address] [place] [address] Consulting Physician Neurology 09/07/23 Larisa Eisenberg APRN, LOAD OUT SUPERVISOR [address] [address] Nurse Practitioner Advanced Practice Nurse 01/26/24 Elio Monae MD [address] [place] [address] Consulting Physician Pulmonary Disease 06/05/24 documented as of this encounter
--- OUTSIDE RECORDS SUMMARY | 2024-10-25 16:18 | XMS_ITS | Encounter Summary ---
Author Organization [employer] Address 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 Gender Identity Not on file Sexual [...] CDT) MPV 11.2 9.3 - 12.4 fL [facility] MCV 93.3 82.0 - 99.0 fL [facility] RBC 4.51 3.90 - 4.90 M/uL [facility] HEMOGLOBIN 13.8 11.8 - 14.8 g/dL [facility] RDW-STDEV 43.9 37.1 - 48.7 fL [facility] MCH 30.6 27.2 - 32.6 pg [facility] RDW 12.9 11.5 - 14.5 % [facility] HEMATOCRIT 42.1 35.5 - 44.0 % [facility] MCHC 32.8 31.5 - 35.5 % [facility] PLATELETS 231 140 - 350 K/uL [facility] WBC 3.2(L) 4.0 - 9.8 K/uL [facility] BASOPHILS 1 0 - 2 % [facility] BASOPHILS ABSOLUTE 0.03 0.00 - 0.20 K/uL [facility] MONOCYTES 10 3 - 13 % [facility] MONOCYTE ABSOLUTE 0.32 0.10 - 1.30 K/uL [facility] NEUTROPHILS 40(L) 45 - 70 % [facility] NEUTROPHIL ABSOLUTE 1.29(L) 1.90 - 7.00 K/uL [facility] EOSINOPHILS 3 0 - 7 % [facility] EOSINOPHIL ABSOLUTE 0.11 0.00 - 0.70 K/uL [facility] LYMPHOCYTES 46(H) 16 - 45 % [facility] LYMPHOCYTE ABSOLUTE 1.46 0.70 - 4.50 K/uL [facility] Blood specimen (specimen) 07/18/2008 10:12 AM CDT 07/18/2008 10:51 AM CDT us Bib Solis MD HEMATOLOGY ORDERABLES Edited Performing Organization Address City/[facility] de Phone Number INTERFACE SYSTEM Refer to clinic/hospital department [facility] CLIA# [id number] [address] [place] [address] * TABITHA (07/17/2008 5:00 AM CDT) TABITHA SCREEN NEGATIVE NEGATIVE [facility] Comment: Lab test performed by: [facility] [address] [address] [place] [address] TRIXIE VICTOR MD Blood specimen (specimen) 07/17/2008 5:00 AM CDT 07/17/2008 7:32 AM CDT us Daniel Gagnon (Excluded Provider) Beau DEL RIO CHEMISTRY O RDERABLES Final Result Performing Organization Address City/[facility] Co de Phone Number INTERFACE SYSTEM Refer to clinic/hospital department [facility] CLIA# [id number] [address] [place] [address] * FOLATE RBC AND HEMATOCRIT (07/17/2008 5:00 AM CDT) Pathologist [facility] HEMATOCRIT, FOLATE 39.4 35.5 - 44.0 % [facility] RBC FOLATE 373 >=281 ng/mL [facility] Comment: Note: New Reference Range Effective 2007 Performed by: [facility] [id number] [place] [address] Blood specimen (specimen) 07/17/2008 5:00 AM CDT 07/17/2008 7:32 AM CDT us Daniel Gagnon (Excluded Provider) Beau DEL RIO CHEMISTRY O CHUCHO Edited Performing Organization Address [facility] de Phone Number INTERFACE SYSTEM Refer to clinic/hospital department [facility] CLIA# [id number] [address] [place] [address] * VITAMIN B12 (07/17/2008 5:00 AM CDT) Pathologist [facility] VITAMIN B12 580 211 - 946 pg/mL [facility] Comment: It has been reported that [...] O CHUCHO Final Result Performing Organization Address [facility] de Phone Number INTERFACE SYSTEM Refer to clinic/hospital department [facility] CLIA# [id number] [address] [place] [address] * SEDIMENTATION RATE (07/17/2008 5:00 AM CDT) Pathologist [facility] ESR (SEDIMENTATION RATE) 7 0 - 30 mm/hr [facility] Blood specimen (specimen) 07/17/2008 5:00 AM CDT 07/17/2008 7:32 AM CDT us Daniel Gagnon (Excluded Provider) Beau DEL RIO HEMATOLOGY ORDERABLES Final Result Performing Organization Address [facility] de Phone Number INTERFACE SYSTEM Refer to clinic/hospital department [facility] CLIA# [id number] [address] [place] [address] * RHEUMATOID FACTOR (07/17/2008 5:00 AM CDT) Pathologist [facility] RHEUMATOID FACTOR 6.4 0.0 - 13.9 IU/mL [facility] Blood specimen (specimen) 07/17/2008 5:00 AM CDT 07/17/2008 7:32 AM CDT us Daniel Gagnon (Excluded Provider) Beau DEL RIO CHEMISTRY O RDERABLES Final Result Performing Organization Address [facility] de Phone Number INTERFACE SYSTEM Refer to clinic/hospital department [facility] CLIA# [id number] [address] [place] [address] * (ABNORMAL) LIPID PANEL (07/17/2008 5:00 AM CDT) HDL 82(H) 40 - 59 mg/dL [facility] CHOLESTEROL 212(H) 100 - 199 mg/dL [facility] TRIGLYCERIDE 120 10 - 149 mg/dL [facility] CHOL/HDL RATIO 2.6 2.0 - 5.0 [facility] LDL CALCULATED 106(H) <=99 mg/dL [facility] LIPID PANEL COMMENT See Below [facility] Comment: The adult ATP and pediatric NCEP classifications for lipids are available on the [facility] Intranet at: [email or web address] Select: Lab Policies and Procedures,Current Select: Lipid Panel Interpretation Blood specimen (specimen) 07/17/2008 5:00 AM CDT 07/17/2008 7:32 AM CDT us Daniel Gagnon (Excluded Provider) Beau DEL RIO CHEMISTRY O RDERABLES Edited INTERFACE SYSTEM Refer to clinic/hospital department [facility] CLIA# [id number] [address] [place] [address] * BASIC METABOLIC PANEL (07/17/2008 5:00 AM CDT) BUN 9 6 - 20 mg/dL [facility] CHLORIDE 101 96 - 108 mmol/L [facility] GLUCOSE 88 65 - 99 mg/dL [facility] SODIUM 137 135 - 145 mmol/L [facility] CALCIUM 9.3 8.6 - 10.2 mg/dL [facility] CO2 27 22 - 30 mmol/L [facility] CREATININE 0.59 0.51 - 0.95 mg/dL [facility] POTASSIUM 4.8 3.5 - 4.9 mmol/L [facility] GFR, >60 >=60 mL/min/1.7 sq meter [facility] GFR >60 >=60 mL/min/1.7 sq meter [facility] Comment: Modification of Diet in Renal Disease (MDRD) study formula. Estimated GFR rate interpretative information for both Americans and non- Americans is available on the [facility] [place] [employer] at: [email or web address] Select: Lab Policies and Procedures Select: Reference Ranges - GFR Blood specimen (specimen) 07/17/2008 5:00 AM CDT 07/17/2008 7:32 AM CDT Daniel Gagnon (Excluded Provider) Beau DEL RIO CHEMISTRY O RDERABLES Edited Performing Organization Address [facility] de Phone Number INTERFACE SYSTEM Refer to clinic/hospital department [facility] CLIA# [id number] [address] [place] [address] * URINALYSIS (07/16/2008 7:23 PM CDT) CLARITY UA Clear Clear [facility] PROTEIN UA Negative Negative [facility] BILIRUBIN UA Negative Negative [facility] LEUKOCYTE ESTERASE UA Negative Negative [facility] SPECIFIC GRAVITY UA 1.005 1.001 - 1.035 [facility] BLOOD UA Negative Negative [facility] GLUCOSE UA Negative Negative [facility] COLOR UA Pale Yellow [facility] NITRITE UA Negative Negative [facility] UROBILINOGEN UA <1 <=1 mg/dL [facility] PH UA 5.5 5.0 - 8.0 [facility] KETONES UA Negative Negative [facility] Urine specimen (specimen) 07/16/2008 7:23 PM CDT 07/16/2008 9:18 PM CDT us Bib Solis MD URINE ORDERABLES Final Result Performing Organization Address [facility] Phone Number INTERFACE SYSTEM Refer to clinic/hospital department [facility] CLIA# [id number] [address] [place] [address] * DRUG SCREEN, URINE (07/16/2008 7:19 PM CDT) COMMENT, TOXICOLOGY See Separate Comment [facility] Comment: Urine sample was not handled [...] drugs of abuse are available on the [facility] Intranet at: [email or web address] Select: Lab Policies & Procedures Select: Drugs of Abuse-[facility] To inquire about any potential cross-reactivity of a specific drug not listed at this site, please contact the Chemistry Lab at . AMPHETAMINE QUAL, URINE Negative Negative [facility] BARBITURATE QUAL, URINE Negative Negative [facility] BENZODIAZEPINE QUAL, URINE Negative Negative [facility] CANNABINOIDS QUAL, URINE Negative Negative [facility] COCAINE QUAL URINE Negative Negative [facility] OPIATE QUAL, URINE Negative Negative [facility] PCP QUAL, URINE Negative Negative [facility] Urine specimen (specimen) 07/16/2008 7:19 PM CDT 07/16/2008 9:05 PM CDT us Bib Solis MD URINE ORDERABLES Edited INTERFACE SYSTEM Refer to clinic/hospital department [facility] CLIA# [id number] [address] [place] [place] [address] * TSH (07/16/2008 8:00 AM CDT) TSH 1.50 0.27 - 4.20 uU/mL [facility] Blood specimen (specimen) 07/16/2008 8:00 AM CDT 07/16/2008 10:08 AM CDT us Bib Solis MD CHEMISTRY ORDERABLES Final Resul t INTERFACE SYSTEM Refer to clinic/hospital department [facility] CLIA# [id number] [address] [place] [place] [address] * (ABNORMAL) COMPREHENSIVE METABOLIC PANEL (07/16/2008 8:00 AM CDT) CREATININE 0.63 0.51 - 0.95 mg/dL [facility] ALT 23 0 - 31 U/L [facility] SODIUM 132(L) 135 - 145 mmol/L [facility] ALKALINE PHOSPHATASE 58 35 - 104 U/L [facility] CO2 28 22 - 30 mmol/L [facility] BILIRUBIN TOTAL 0.3 0.2 - 1.0 mg/dL [facility] POTASSIUM 3.4(L) 3.5 - 4.9 mmol/L [facility] TOTAL PROTEIN 6.7 6.3 - 8.6 g/dL [facility] GLUCOSE 94 65 - 99 mg/dL [facility] AST 29 12 - 32 U/L [facility] BUN 9 6 - 20 mg/dL [facility] CALCIUM 9.4 8.6 - 10.2 mg/dL [facility] ALBUMIN 4.3 3.4 - 4.8 g/dL [facility] CHLORIDE 94(L) 96 - 108 mmol/L [facility] GFR, >60 >=60 mL/min/1. 7 sq meter [facility] GFR >60 >=60 mL/min/1. 7 sq meter [facility] Comment: Modification of Diet in Renal Disease (MDRD) study formula. Estimated GFR rate interpretative information for both Americans and non- Americans is available on the [facility] Intranet at: [email or web address] Select: Lab Policies and Procedures Select: Reference Ranges - GFR Blood specimen (specimen) 07/16/2008 8:00 AM CDT 07/16/2008 10:08 AM CDT Bib Solis MD CHEMISTRY ORDERABLES Edited Performing Organization Address [facility] Phone Number INTERFACE SYSTEM Refer to clinic/hospital department [facility] CLIA# [id number] [address] [place] [address] * CARBAMAZEPINE LEVEL (07/16/2008 8:00 AM CDT) CARBAMAZEPINE LEVEL 8.2 4.0 - 12.0 ug/mL [facility] Comment: Performed at [facility]. Carbamazepine Toxic Level => 20 ug/mL Blood specimen (specimen) 07/16/2008 8:00 AM CDT 07/16/2008 10:08 AM CDT Bib Solis MD CHEMISTRY ORDERABLES Final Resul t Performing Organization Address [facility] de Phone Number INTERFACE SYSTEM Refer to clinic/hospital department [facility] CLIA# [id number] [address] [place] [address] * (ABNORMAL) CBC WITH DIFFERENTIAL (07/16/2008 8:00 AM CDT) HEMATOCRIT 41.6 35.5 - 44.0 % [facility] RDW-STDEV 43.0 37.1 - 48.7 fL [facility] RBC 4.53 3.90 - 4.90 M/uL [facility] MCHC 33.9 31.5 - 35.5 % [facility] MCV 91.8 82.0 - 99.0 fL [facility] PLATELETS 239 140 - 350 K/uL [facility] HEMOGLOBIN 14.1 11.8 - 14.8 g/dL [facility] RDW 12.8 11.5 - 14.5 % [facility] WBC 2.7(L) 4.0 - 9.8 K/uL [facility] MCH 31.1 27.2 - 32.6 pg [facility] MPV 11.2 9.3 - 12.4 fL [facility] NEUTROPHIL ABSOLUTE 1.18(L) 1.90 - 7.00 K/uL [facility] BASOPHILS 0 0 - 2 % [facility] EOSINOPHIL ABSOLUTE 0.09 0.00 - 0.70 K/uL [facility] MONOCYTES 15(H) 3 - 13 % [facility] LYMPHOCYTE ABSOLUTE 0.99 0.70 - 4.50 K/uL [facility] NEUTROPHILS 44(L) 45 - 70 % [facility] BASOPHILS ABSOLUTE 0.01 0.00 - 0.20 K/uL [facility] EOSINOPHILS 3 0 - 7 % [facility] MONOCYTE ABSOLUTE 0.40 0.10 - 1.30 K/uL [facility] LYMPHOCYTES 37 16 - 45 % [facility] Blood specimen (specimen) 07/16/2008 8:00 AM CDT 07/16/2008 10:08 AM CDT us Bib Solis MD HEMATOLOGY ORDERABLES Edited INTERFACE SYSTEM Refer to clinic/hospital department [facility] CLIA# [id number] [address] [place] [address] documented in this encounter Visit Diagnoses Not on filedocumented in this encounter Care Teams Financial Services Representative Relationship Specialty Start Date End Date Kylie Reynolds MD NO ADDRESS ON FILE PCP - General 01/23/01 02/25/16 documented as of this encounter
--- OUTSIDE RECORDS SUMMARY | 2024-10-25 16:18 | XMS_ITS | Encounter Summary ---
Author Organization [employer] Address 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
--- OUTSIDE RECORDS SUMMARY | 2024-10-25 16:18 | XMS_ITS | Encounter Summary ---
Author Organization [employer] Address 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
--- OUTSIDE RECORDS SUMMARY | 2024-10-25 16:18 | XMS_ITS | Encounter Summary ---
Author Organization [facility] Address [address] [place] [address] Phone Care Team Providers Care Cyber Forensics Analyst Name Role Phone Ramin Angeles DO Unavailable [phone] Jeniffer Burciaga MD Primary Care Provider [phone] Lizz Mccauley RN Unavailable Unavailable Lincoln Simpson DPM Unavailable Unavailable Provider, None Primary Care Provider Unavailabl e Martín Cuenca MD Primary Care Provider [phone] Bairon Ryan MD Unavailable [phone] Larisa Eisenberg CLOTH FINISHER, INSPECTOR LINE Unavailable + [phone] Cynthia Woody CLOTH FINISHER, INSPECTOR LINE Primary Care Provider + Elio Monae MD Unavailable Gorge Morel MD Primary Care Provider + [phone] Reason for Visit * Reason Comments Medication Refill Encounter Details Date Type Department Care Team (Late st Contact Info) Description 08/07/2022 Refill [facility] [address] [place] [address] Jeniffer Burciaga MD [address] [place] [address] Medication Refill Social History Tobacco Use Types [...] st Contact Info) Description 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 Visit [facility] [address] [place] [address] Davion Alicea MD [address] [address] 12/18/2024 10:30 AM CDT Office Visit [facility] - [facility] [address] [place] [address] Cynthia Woody APRN, INSPECTOR LINE [address] [place] [address] 03/10/2025 1:00 PM CDT [facility] [address] [place] [id number] Gilmar Bond MD [address] [place] [address] Discharge Disposition: Discharged to home or Selfcare documented as of this encounter Visit Diagnoses Diagnosis Lumbar radiculopathy Thoracic or lumbosacral neuritis or radiculitis, unspecified documented in this encounter Additional Health Concerns Assessment Noted Time PHQ-9 Depression Total Score: 0 04/12/20 18 2:00 PM CDT documented as of this encounter Care Teams Cyber Forensics Analyst Relationship Specialty Start Date End Date Jeniffer Burciaga MD [address] [place] [address] PCP - General Family Medicine 02/10/16 09/06/23 Provider, [facility] PCP - General 09/07/23 10/05/23 Martín Cuenca MD [address] [place] [address] PCP - General Family Medicine 10/06/23 02/05/24 Cynthia Woody, CLOTH FINISHER, INSPECTOR LINE [address] [place] [address] PCP - General Advanced Practice Nurse 02/07/24 Gorge Morel MD [address] [place] [address] PCP - General Infectious Disease 10/15/24 Ramin [place] DO Consulting Physician Gastroenterology 01/14/16 08/20/24 Lizz Mccauley RN [place] Hardness Tester 12/15/21 08/07/22 Lincoln Simpson DPM Podiatry 03/30/22 Bairon Ryan MD [address] [place] [address] Consulting Physician Neurology 09/07/23 Larisa Eisenberg APRN, INSPECTOR LINE [address] [address] Nurse Practitioner Advanced Practice Nurse 01/26/24 Elio Monae MD [address] [place] [address] Consulting Physician Pulmonary Disease 06/05/24 documented as of this encounter
--- OUTSIDE RECORDS SUMMARY | 2024-10-25 16:18 | XMS_ITS | Encounter Summary ---
Author Organization [facility] Address 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
--- OUTSIDE RECORDS SUMMARY | 2024-10-25 16:18 | XMS_ITS | Encounter Summary ---
Author Organization [facility] Address [address] [facility] [place] [address] Phone Care Team Providers Care Excel Specialist Name Role Phone Ramin Angeles DO Unavailable [phone] Jeniffer Burciaga MD Primary Care Provider [phone] Lizz Mccauley RN Unavailable Unavailable Lincoln Simpson DPM Unavailable Unavailable Provider, None Primary Care Provider Unavailabl e Martín Cuenca MD Primary Care Provider [phone] Bairon Ryan MD Unavailable [phone] Larisa Eisenberg AUDIO VISUAL EQUIPMENT RENTAL CLERK, POSITION CLASSIFICATION SPECIALIST Unavailable + [phone] Cynthia Woody AUDIO VISUAL EQUIPMENT RENTAL CLERK, POSITION CLASSIFICATION SPECIALIST Primary Care Provider + Elio Monae MD Unavailable Gorge Morel MD Primary Care Provider + [phone] Encounter Details Date Type Department Care Team (Late st Contact Info) Description 11/29/2021 Lab Requisition [facility] [address] [place] [address] [place] [address] [facility] [address] [place] [address] senior living (current) use of antibiotics; Staphylococcal arthritis, right [...] st Contact Info) Description 11/13/2024 8:00 AM BILL OF LADING CLERK Procedure Visit [facility] #[address] [place] [phone] Davion Alicea MD [address] [address] 12/18/2024 10:30 AM CDT Office Visit [facility] [address] [place] [address] Cynthia Woody, AUDIO VISUAL EQUIPMENT RENTAL CLERK, POSITION CLASSIFICATION SPECIALIST [address] [place] [address] 03/10/2025 1:00 PM CDT Office Visit [facility] On[facility] [address] [place] [address] Gilmar Bond MD [address] [place] [address] Discharge Disposition: Discharged to home or Selfcare documented as of this encounter Procedures Procedure Name Priority Date/Time Associated Diagnosis Comments CBC WITH AUTO DIFFERENTIAL Routine 11/29/2021 10:40 AM CDT long term acute care registered nurse (current) use of antibiotics Staphylococcal arthritis, right elbow (HCC) Essential (primary) hypertension VANCOMYCIN TROUGH Routine 11/29/2021 10: 40 AM CDT senior living (current) use of antibiotics Staphylococcal arthritis, right elbow (HCC) Essential (primary) hypertension CMP (COMPREHENSIVE METABOLIC PANEL) Routine 11/29/2021 10:40 AM CDT long term acute care registered nurse (current) use of antibiotics Staphylococcal arthritis, right elbow (HCC) Essential (primary) hypertension COMPLETE BLOOD COUNT (CBC) WITH DIFF Routine 11/29/2021 10:40 AM CDT senior living (current) use of antibiotics Staphylococcal arthritis, right elbow (HCC) Essential (primary) hypertension documented in this encounter Results * (ABNORMAL) CBC WITH AUTO DIFFERENTIAL (11/29/2021 10:40 AM CDT) WBC 4.67 4.00 - 12.00 10(3)/mcL 11/29/2021 4:56 PM CDT [facility] RBC 3.75(L) 3.80 - 5.30 10(6)/mcL 11/29/2021 4:56 PM CDT [facility] HEMOGLOBIN (HGB) 10.4(L) 12.0 - 15.8 g/dL 11/29/2021 4:56 PM CDT [facility] HEMATOCRIT (HCT) 34.0(L) 36.0 - 47.0 [...] LAB PLATELET COUNT 366 140 - 440 10(3)/mcL 11/29/2021 4:56 PM CDT [facility] - 7.70 10(3)/mcL 11/29/2021 4:56 PM CDT [facility] ABSOLUTE LYMPHOCYTES 1.35 1.30 - 3.20 10(3)/mcL 11/29/2021 4:56 PM CDT [facility] ABSOLUTE MONOCYTES 0.66 0.20 - 1.00 10(3)/mcL 11/29/2021 4:56 PM CDT [facility] ABSOLUTE EOSINOPHIL 0.13 0.00 - 0.40 10(3)/mcL 11/29/2021 4:56 PM CDT [facility] ABSOLUTE BASOPHILS 0.03 0.00 - 0.10 10(3)/mcL 11/29/2021 4:56 PM CDT [facility] NRBC PER 100 WBC 0 11/30/19 4:56 PM CDT [facility] RESULTS ARE CONSISTENT WITH PERIPHERAL SMEAR REVIEW Yes 11/29/2021 4:56 PM CDT [facility] Blood No Phlebotomy Charged / Unknown 11/29/2021 10:40 AM CDT 11/29/2021 3:55 PM CDT Anya Mccrary MD HEMATOLOGY ORDERABLES Fi nal Result Performing Organization Address City/[facility]/ZIP Co de Phone Number [facility] [address] [place] [address] * (ABNORMAL) VANCOMYCIN TROUGH (11/29/2021 10:40 AM CDT) Pathologist [facility] VANCOMYCIN, TROUGH 16(H) 5 - 10 mcg/mL 11/29/2021 4:29 PM CDT [facility] Blood No Phlebotomy Charged / Unknown 11/29/2021 10:40 AM CDT 11/29/2021 3:55 PM CDT Anya Mccrary MD CHEMISTRY ORDERABLES Fin al Result [facility] [address] [place] [address] * (ABNORMAL) CMP (COMPREHENSIVE METABOLIC PANEL) (11/29/2021 10:40 AM CDT) SODIUM 131(L) 136 - 144 mmol/L 11/29/2021 4:29 PM CDT [facility] POTASSIUM 4.2 3.5 - 5.1 mmol/L 11/29/2021 4:29 PM [facility] CHLORIDE 96(L) 100 - 110 mmol/L 11/29/2021 4:29 PM T [facility] CO2, VENOUS 24 22 - 32 mmol/L 11/29/2021 4:29 PM [facility] ANION GAP 15.2 8.0 - 20.0 mmol/L 11/29/2021 4:29 PM T [facility] GLUCOSE 74 70 - 99 mg/dL 11/29/2021 4:29 PM [facility] BUN 14 8 - 23 mg/dL 11/29/2021 4:29 PM [facility] CREATININE, BLOOD 0.63 0.60 - 1.10 mg/dL 11/29/2021 4:29 PM [facility] BUN/CREATININE RATIO 22(H) 12 - 20 ratio 11/29/2021 4:29 PM [facility] TOTAL PROTEIN 7.1 6.0 - 8.3 g/dL 11/29/2021 4:29 PM [facility] ALBUMIN 4.4 3.5 - 5.2 g/dL 11/29/2021 4:29 PM [facility] Comment: The colormetric methods used for the determination of Albumin may lead to falsely elevated test results in patients suffering from renal failure or insufficiency due to interference with other proteins. A/G RATIO 1.6 1.0 - 2.0 11/29/2021 4:29 PM [facility] CALCIUM 9.2 8.9 - 10.3 mg/dL 11/29/2021 4:29 PM [facility] T BILI <0.3 <=1.2 mg/dL 11/29/2021 4:29 PM [facility] SGOT (AST) 45(H) <=32 U/L 11/29/2021 4:29 PM [facility] SGPT (ALT) 47(H) <=41 U/L 11/29/2021 [...] Mccrary MD CHEMISTRY ORDERABLES Fin al Result [facility] [address] [place] [address] documented in this encounter Visit Diagnoses Diagnosis long term acute care registered nurse (current) use of antibiotics Staphylococcal arthritis, right elbow (HCC) Essential (primary) hypertension Unspecified essential hypertension documented in this encounter Additional Health Concerns Assessment Noted Time PHQ-9 Depression Total Score: 0 04/12/20 18 2:00 PM CDT documented as of this encounter Care Teams Excel Specialist Relationship Specialty Start Date End Date Jeniffer Burciaga MD [address] [place] [address] PCP - General Family Medicine 02/10/16 09/06/23 Provider, None [place] PCP - General 09/07/23 10/05/23 Martín Cuenca MD #[address] [place] [address] PCP - General Family Medicine 10/06/23 02/05/24 Cynthia Woody, AUDIO VISUAL EQUIPMENT RENTAL CLERK, POSITION CLASSIFICATION SPECIALIST [address] [place] [address] PCP - General Advanced Practice Nurse 02/07/24 Gorge Morel [place] [address] PCP - General Infectious Disease 10/15/24 Ramin Angeles DO Consulting Physician Gastroenterology 01/14/16 08/20/24 Lizz Mccauley, SRINATH [place] Dry Chain Puller 12/15/21 08/07/22 Lincoln Simpson, DPM Podiatry 03/30/22 Bairon Ryan MD [address] [place] [address] Consulting Physician Neurology 09/07/23 Larisa Eisenberg, AUDIO VISUAL EQUIPMENT RENTAL CLERK, POSITION CLASSIFICATION SPECIALIST [address] [facility] [address] [place] [address] Nurse Practitioner Advanced Practice Nurse 01/26/24 Elio Monae MD [address] [place] [address] Consulting Physician Pulmonary Disease 06/05/24 documented as of this encounter
--- OUTSIDE RECORDS SUMMARY | 2024-10-25 16:18 | XMS_ITS | Clinical Summary ---
Author Organization [facility] Address [address] [facility] [place] [address] Care Team Providers Care Systems Administration Analyst Name Role Phone Estuardo Crandall MD Primary Care Provider [phone] Source Comments [facility],non-owned Affiliates and Associated Physician Practices is amultiple site organization consisting of ambulatory clinics and hospital sitesin [place], [place], [place] and [place]. This disclosure is being madepursuant to the Care Everywhere program and may not contain all information available regarding this patient. Last updated 18.[facility] Medications * Be aware that medications may [...] Sex Assigned at Female 11/08/2021 12:17 PM APPLICATIONS CONSULTANT Gender Identity Female 11/08/2021 12:17 PM APPLICATIONS CONSULTANT Sexual Orientation Straight 11/08/2021 12 :17 PM APPLICATIONS CONSULTANT Last Filed Vital Signs Vital Sign Reading [...] age to complete this topic Care Teams Systems Administration Analyst Relationship Specialty Start [place] [address] [phone] PCP - General 05/06/19
--- OUTSIDE RECORDS SUMMARY | 2024-10-25 16:18 | XMS_ITS | Encounter Summary ---
Author Organization [facility] Address [address] [place] [address] Care Team Providers Care Rn Bone Marrow Transplant Name Role Phone Kylie Reynolds MD Primary Care Provider Unavailab le Encounter Details Date Type Department Care Team (Late st Contact Info) Description 03/24/2006 Outpatient Historical [facility] Ronnie [facility] MD NO ADDRESS ON FILE Dyspepsia and Other Specified Disorders of Function of Stomach (Primary Dx) Social History Tobacco Use Types Packs/Day Years Used Date Smoking Tobacco: Never Assessed Comments Unknown Sex and Gender Information Value Date Recorded Sex Assigned at Not on file Legal Sex Female 5:26 AM FAMILY SERVICES WORKER Gender Identity Not on file Sexual Orientation Not on file documented as of this encounter Plan of Treatment Not on file documented as of this encounter Visit Diagnoses Diagnosis Dyspepsia and other specified disorders of function of stomach- Primary documented in this encounter Care Teams Rn Bone Marrow Transplant Relationship Specialty Start Date End Date Kylie Reynolds MD NO ADDRESS ON FILE PCP - General 01/23/01 02/25/16 documented as of this encounter
--- OUTSIDE RECORDS SUMMARY | 2024-10-25 16:18 | XMS_ITS | Encounter Summary ---
Author Organization [facility] Address [address] [place] [address] Care Team Providers Care Brick Grader Name Role Phone Kylie Reynolds MD Primary Care Provider Unavail le Encounter Details Date Type Department Care Team (Late st Contact Info) Description 08/16/2005 Outpatient Historical [facility] Medicine [address] [place] [address] Kylie Reynolds MD NO ADDRESS ON FILE Social History Tobacco Use Types Packs/Day Years Used Date Smoking Tobacco: Never Assessed Comments Unknown Sex and Gender Information Value Date Recorded Sex Assigned at Not on file Legal Sex Female 5:26 AM DISPLAY ARTIST Gender Identity Not on file Sexual Orientation Not on file documented as of this encounter Last Filed Vital Signs Vital Sign Reading Time Taken Comments Blood Pressure 136/77 08/16/2005 10:00 AM DISPLAY ARTIST Pulse 66 08/16/2005 10:00 AM DISPLAY ARTIST Temperature 36.1 C (97 F) 08/16/2005 10:00 AM DISPLAY ARTIST Respiratory Rate - - Oxygen Saturation - - Inhaled Oxygen Concentration - - Weight 66.2 kg (146 lb) 08/16/2005 10:00 AM DISPLAY ARTIST Height - - Body Mass Index - - documented in this encounter Plan of Treatment Not on file documented as of this encounter Visit Diagnoses Not on filedocumented in this encounter Care Teams Brick Grader Relationship Specialty Start Date End Date Kylie Reynolds MD NO ADDRESS ON FILE PCP - General 01/23/01 02/25/16 documented as of this encounter
--- OUTSIDE RECORDS SUMMARY | 2024-10-25 16:18 | XMS_ITS | Encounter Summary ---
Author Organization [facility] Address [address] [place] [address] Care Team Providers Care Material Handling Technician Name Role Phone Kylie Reynolds MD Primary Care Provider Brennan hagan Encounter Details Date Type Department Care Team (Latest Contact Info) Description 08/26/[address] [facility] [address] [place] [phone] Kylie Reynolds MD NO ADDRESS ON FILE SCREENING MAMM-MAILG NEOPL-OTHER (Primary Dx) Social History Tobacco Use Types Packs/Day Years Used Date Smoking Tobacco: Never Assessed Comments Unknown Sex and Gender Information Value Date Recorded Sex Assigned at Not on file Legal Sex Female 5:26 AM PERMIT AGENT Gender Identity Not on file Sexual Orientation Not on file documented as of this encounter Plan of Treatment Not on file documented as of this encounter Visit Diagnoses Diagnosis Other screening mammogram- Primary documented in this encounter Care Teams Material Handling Technician Relationship Specialty Start Date End Date Kylie Reynlods MD NO ADDRESS ON FILE PCP - General 01/23/01 02/25/16 documented as of this encounter
--- OUTSIDE RECORDS SUMMARY | 2024-10-25 16:18 | XMS_ITS | Encounter Summary ---
Author Organization [facility] Address [address] [place] [address] Care Team Providers Care Truck Driver Helper Name Role Phone Kylie Reynolds MD Primary Care Provider Brennan hagan Encounter Details Date Type Department Care Team (Latest Contact Info) Description 12/19/2005 Outpatient [facility] [employer] [address] [phone] Yosvany Coppola MD [address] [place] [address] Other Screening Mammogram (Primary Dx) Social History Tobacco Use Types Packs/Day Years Used Date Smoking Tobacco: Never Assessed Comments Unknown Sex and Gender Information Value Date Recorded Sex Assigned at Not on file Legal Sex Female 5:26 AM MOUNTER CLARINETS Gender Identity Not on file Sexual Orientation Not on file documented as of this encounter Plan of Treatment Not on file documented as of this encounter Visit Diagnoses Diagnosis Other screening mammogram- Primary documented in this encounter Care Teams Truck Driver Helper Relationship Specialty Start Date End Date Kylie Reynolds MD NO ADDRESS ON FILE PCP - General 01/23/01 02/25/16 documented as of this encounter
--- OUTSIDE RECORDS SUMMARY | 2024-10-25 16:18 | XMS_ITS | Encounter Summary ---
Author Organization [facility] Address [address] [place] [address] Care Team Providers Care Databases Software Consultant Name Role Phone Kylie Reynolds MD Primary Care Provider Unavailab le Encounter Details Date Type Department Care Team (Late st Contact Info) Description 07/01/2004 Outpatient Historical [facility] Medicine [address] [place] [address] Kylie Reynolds MD NO ADDRESS ON FILE Social History Tobacco Use Types Packs/Day Years Used Date Smoking Tobacco: Never Assessed Comments Unknown Sex and Gender Information Value Date Recorded Sex Assigned at Not on file Legal Sex Female 5:26 AM MANAGER LEADERSHIP DEVELOPMENT Gender Identity Not on file Sexual Orientation Not on file documented as of this encounter Plan of Treatment Not on file documented as of this encounter Visit Diagnoses Not on filedocumented in this encounter Care Teams Databases Software Consultant Relationship Specialty Start Date End Date Kylie Reynolds MD NO ADDRESS ON FILE PCP - General 01/23/01 02/25/16 documented as of this encounter
--- OUTSIDE RECORDS SUMMARY | 2024-10-25 16:18 | XMS_ITS | Encounter Summary ---
Author Organization [facility] Address [address] [facility] [place] [address] Phone Care Team Providers Care Ophthalmology Technician Name Role Phone Ramin Angeles DO Unavailable [phone] Jeniffer Burciaga MD Primary Care Provider [phone] Lizz Mccauley RN Unavailable Unavailable Lincoln Simpson DPM Unavailable Unavailable Provider, None Primary Care Provider Unavailabl e Martín Cuenca MD Primary Care Provider [phone] Bairon Ryan MD Unavailable [phone] Larisa Eisenberg CONSUMER EXPERIENCE CONSULTANT, OUTSEWER Unavailable + [phone] Cynthia Woody CONSUMER EXPERIENCE CONSULTANT, OUTSEWER Primary Care Provider + Elio Monae MD Unavailable Gorge Morel MD Primary Care Provider [phone] Reason for Referral * Consult, Test & Initiate Treatment (Routine) - Closed Specialty Diagnoses / Procedures Referred By Jimenez wilkinson Referred To Contact Diagnoses Elbow pain, unspecified laterality Jeniffer Burciaga MD [address] [place] [address] Phone: tel: fax: Luis Daniel Beverly MD Phone: tel: fax: Referral ID Status Reason Start Date Expiration Date Visits Re quested Visits Authorized [id number] Closed 07/20/2022 1 1 Scheduling Instructions Rina is being referred to [facility] Ortho/Dr Beverly or other specialist in patient's [...] 07/20/2022 Telephone [facility]erral [facility] [address] [place] [phone] Jeniffer Burciaga MD [address] [place] [address] Referral Social History Tobacco Use Types Packs/Day [...] RN - 07/20/2022 9:51 AM CDT Cynthia, corporate real estate specialist is calling to speak directly to one of Jeniffer Burciaga MD nurses at the office regarding referral and authorization needed prior to 2 pm. Cynthia was warm transferred to SRINATH Shi at Jeniffer Burciaga MD office. * Telephone Encounter - Cynthia Acevedo - 07/20/2022 9:47 AM CDT I received a call from Prema at [facility] Orthopedics. Patient has an appointment today at [address] Luis Daniel Beverly for her right elbow. She needs a referral and authorization for this visit. Please place referral for patient. Thank you! documented in this encounter Plan of Treatment Upcoming Encounters Date Type Department Care Team (Late st Contact Info) Description 11/13/2024 8:00 AM THERMOSTAT MACHINE TENDER Procedure Visit [facility] [address] [place] [address] Davion Alicea MD [address] [address] 12/18/2024 10:30 AM CDT Office Visit [facility] [address] [place] [address] Cynthia Woody, CONSUMER EXPERIENCE CONSULTANT, OUTSEWER [address] [place] [address] 03/10/2025 1:00 PM CDT Office Visit [facility] Oncology Services [address] [place] [address] Gilmar Bond MD [address] [place] [address] Discharge Disposition: Discharged to home or Selfcare [...] documented as of this encounter Care Teams Ophthalmology Technician Relationship Specialty Start Date End Date Jeniffer Burciaga MD [address] [place] [address] PCP - General Family Medicine 02/10/16 09/06/23 Provider, None [place] PCP - General 09/07/23 10/05/23 Martín Cuenca MD [address] [place] [address] PCP - General Family Medicine 10/06/23 02/05/24 Cynthia Woody, CONSUMER EXPERIENCE CONSULTANT, OUTSEWER [address] [place] [address] PCP - General Advanced Practice Nurse 02/07/24 Gorge Morel MD [address] [place] [address] PCP - General Infectious Disease 10/15/24 Ramin Angeles DO Consulting Physician Gastroenterology 01/14/16 08/20/24 Lizz Mccauley, SRINATH [place] Molder Apprentice 12/15/21 08/07/22 Lincoln Simpson DPM Podiatry 03/30/22 Bairon Ryan MD [address] [place] [address] Consulting Physician Neurology 09/07/23 Larisa Eisenberg APRN, OUTSEWER [address]2 [facility] [address] [place] [address] Nurse Practitioner Advanced Practice Nurse 01/26/24 Elio Monae MD [address] [place] [address] Consulting Physician Pulmonary Disease 06/05/24 documented as of this encounter
--- OUTSIDE RECORDS SUMMARY | 2024-10-25 16:18 | XMS_ITS | Encounter Summary ---
Author Organization [facility] Address [address] [place] [address] Care Team Providers Care Cat Cracker Operator Name Role Phone Kylie Reynolds MD Primary Care Provider Unavail le Encounter Details Date Type Department Care Team (Late st Contact Info) Description 08/22/2005 Outpatient Historical [facility] Medicine [address] [place] [address] Kylie Reynolds MD NO ADDRESS ON FILE Social History Tobacco Use Types Packs/Day Years Used Date Smoking Tobacco: Never Assessed Comments Unknown Sex and Gender Information Value Date Recorded Sex Assigned at Not on file Legal Sex Female 5:26 AM ACCOUNT MANAGEMENT SPECIALIST Gender Identity Not on file Sexual Orientation Not on file documented as of this encounter Last Filed Vital Signs Vital Sign Reading Time Taken Comments Blood Pressure 137/87 08/22/2005 11:30 AM ACCOUNT MANAGEMENT SPECIALIST Pulse 60 08/22/2005 11:30 AM ACCOUNT MANAGEMENT SPECIALIST Temperature 36 C (96.8 F) 08/22/2005 11:30 AM ACCOUNT MANAGEMENT SPECIALIST Respiratory Rate - - Oxygen Saturation - - Inhaled Oxygen Concentration - - Weight - - Height - - Body Mass Index - - documented in this encounter Plan of Treatment Not on file documented as of this encounter Visit Diagnoses Not on filedocumented in this encounter Care Teams Cat Cracker Operator Relationship Specialty Start Date End Date Kylie Reynolds MD NO ADDRESS ON FILE PCP - General 01/23/01 02/25/16 documented as of this encounter
--- OUTSIDE RECORDS SUMMARY | 2024-10-25 16:18 | XMS_ITS | Encounter Summary ---
Author Organization [facility] Address [address] [place] [address] Care Team Providers Care Roller Maker Name Role Phone Kylie Reynolds MD Primary Care Provider Unavailab le Encounter Details Date Type Department Care Team (Late st Contact Info) Description 10/13/2004 Outpatient Historical [facility] Medicine [address] [place] [address] Kylie Reynolds MD NO ADDRESS ON FILE Social History Tobacco Use Types Packs/Day Years Used Date Smoking Tobacco: Never Assessed Comments Unknown Sex and Gender Information Value Date Recorded Sex Assigned at Not on file Legal Sex Female 5:26 AM BOLT THREADER Gender Identity Not on file Sexual Orientation Not on file documented as of this encounter Plan of Treatment Not on file documented as of this encounter Visit Diagnoses Not on filedocumented in this encounter Care Teams Roller Maker Relationship Specialty Start Date End Date Kylie Reynolds MD NO ADDRESS ON FILE PCP - General 01/23/01 02/25/16 documented as of this encounter
--- OUTSIDE RECORDS SUMMARY | 2024-10-25 16:18 | XMS_ITS | Encounter Summary ---
Author Organization [facility] Address [address] [place] [address] Care Team Providers Care Line Out Man Name Role Phone Kylie Reynolds MD Primary Care Provider Unavail le Encounter Details Date Type Department Care Team (Late st Contact Info) Description 07/21/2005 Outpatient Historical [facility] Medicine [address] [place] [address] Kylie Reynolds MD NO ADDRESS ON FILE Social History Tobacco Use Types Packs/Day Years Used Date Smoking Tobacco: Never Assessed Comments Unknown Sex and Gender Information Value Date Recorded Sex Assigned at Not on file Legal Sex Female 5:26 AM MILK PROCESSING WORKER Gender Identity Not on file Sexual Orientation Not on file documented as of this encounter Last Filed Vital Signs Vital Sign Reading Time Taken Comments Blood Pressure 119/76 07/21/2005 2:30 PM MILK PROCESSING WORKER Pulse 75 07/21/2005 2:30 PM MILK PROCESSING WORKER Temperature 36.2 C (97.2 F) 07/21/2005 2:30 PM MILK PROCESSING WORKER Respiratory Rate - - Oxygen Saturation - - Inhaled Oxygen Concentration - - Weight 64 kg (141 lb) 07/21/2005 2:30 PM MILK PROCESSING WORKER Height - - Body Mass Index - - documented in this encounter Plan of Treatment Not on file documented as of this encounter Visit Diagnoses Not on filedocumented in this encounter Care Teams Line Out Man Relationship Specialty Start Date End Date Kylie Reynolds MD NO ADDRESS ON FILE PCP - General 01/23/01 02/25/16 documented as of this encounter
--- OUTSIDE RECORDS SUMMARY | 2024-10-25 16:18 | XMS_ITS | Clinical Summary ---
Author Organization [facility] Address [address] [place] [address] Phone Care Team Providers Care Chemical Sales Representative Name Role Phone Unavailable Primary Care Provider [...] file Legal Sex Female 5:26 AM ROUTE DELIVERER Gender Identity Not on file Sexual Orientation [...] PM CDT Narrative 04/04/2008 4:57 PM CDT [address] [address] [place], [place] [address] Admit Date: 04/03/2008 RINA GONSALES Sex: F Admit Prov: YOSVANY FUENTES Date: 1950 Primary Care Prov: BRIE STALLWORTH MARI CMRN: [id number] Room: [facility] SSN: [id number] IMAGING SERVICES Ordering Prov: YOSVANY FUENTES Accession Number: [id number] Interpretation BILATERAL FULL FIELD DIGITAL SCREENING MAMMOGRAM [...] AMK Procedure Note Rivka Gupta - 04/04/2008 [address] [address] [place], [place] [address] Admit Date: 04/03/2008 RINA GONSALES Sex: F Admit Prov: YOSVANY FUENTES Date: 1950 Primary Care Prov: BRIE STALLWORTH CMRN: [id number] Room: [facility] SSN: [id number] IMAGING SERVICES Ordering Prov: YOSVANY FUENTES Interpretation [...] Most Recently Relevant to Health Maintenance Insurance [facility] [id number] Advance Directives For more information, please contact: [phone] * Full Code (Latest Code Status on File) Date Activated Date Inactivated Comments 06/04/2009 12:53 PM 06/05/2009 2:02 AM
--- OUTSIDE RECORDS SUMMARY | 2024-10-25 16:18 | XMS_ITS | Encounter Summary ---
Author Organization [employer] Address [address] [place] [address] Care Team Providers Care Digital Media Strategist Name Role Phone Kylie Reynolds MD Primary Care Provider Unavailab le Encounter Details Date Type Department Care Team (Late st Contact Info) Description 07/28/2004 Outpatient [facility] [address] [place] [phone] Kylie Reynolds MD NO ADDRESS ON FILE Social History Tobacco Use Types Packs/Day Years Used Date Smoking Tobacco: Never Assessed Comments Unknown Sex and Gender Information Value Date Recorded Sex Assigned at Not on file Legal Sex Female 5:26 AM DIRECTOR OF EVENT SALES Gender Identity Not on file Sexual Orientation Not on file documented as of this encounter Plan of Treatment Not on file documented as of this encounter Visit Diagnoses Not on filedocumented in this encounter Care Teams Digital Media Strategist Relationship Specialty Start Date End Date Kylie Reynolds MD NO ADDRESS ON FILE PCP - General 01/23/01 02/25/16 documented as of this encounter
--- OUTSIDE RECORDS SUMMARY | 2024-10-25 16:18 | XMS_ITS | Encounter Summary ---
Author Organization [employer] Address [address] [place] [address] Care Team Providers Care Slide Forming Machine Tender Name Role Phone Kylie Reynolds MD Primary Care Provider Brennan hagan Encounter Details Date Type Department Care Team (Latest Contact Info) Description 12/19/2005 Outpatient [facility] [address] [phone] Yosvany Coppola MD [address] [place] [phone] Observation for Other Specified Suspected Conditions (Primary Dx) Social History Tobacco Use Types Packs/Day Years Used Date Smoking Tobacco: Never Assessed Comments Unknown Sex and Gender Information Value Date Recorded Sex Assigned at Not on file Legal Sex Female 5:26 AM INTEGRATION DEVELOPER Gender Identity Not on file Sexual Orientation Not on file documented as of this encounter Plan of Treatment Not on file documented as of this encounter Visit Diagnoses Diagnosis Observation for other specified suspected conditions- Primary documented in this encounter Care Teams Slide Forming Machine Tender Relationship Specialty Start Date End Date Kylie Reynolds MD NO ADDRESS ON FILE PCP - General 01/23/01 02/25/16 documented as of this encounter
--- OUTSIDE RECORDS SUMMARY | 2024-10-25 16:18 | XMS_ITS | Referral Summary ---
Author Organization [facility] Address [address] [facility] [place] [address] Care Team Providers Care Brake Coupler Dinkey Name Role Phone Estuardo Crandall MD Primary Care Provider [phone] Source Comments [facility],non-owned Affiliates and Associated Physician Practices is amultiple site organization consisting of ambulatory clinics and hospital sitesin [place], [place], [place] and [place]. This disclosure is being madepursuant to the Care Everywhere program and may not contain all information available regarding this patient. Last updated 18.[facility] Medications * Be aware that medications may [...] Sex Assigned at Female 11/08/2021 12:17 PM PAYMENT MANAGER Gender Identity Female 11/08/2021 12:17 PM PAYMENT MANAGER Sexual Orientation Straight 11/08/2021 12 :17 PM PAYMENT MANAGER Last Filed Vital Signs Vital Sign Reading [...] of Treatment Not on file Care Teams Brake Coupler Dinkey Relationship Specialty [place] [id number] [phone] PCP - General 05/06/19
--- OUTSIDE RECORDS SUMMARY | 2024-10-25 16:18 | XMS_ITS | Encounter Summary ---
Author Organization [facility] Address [address] [place] [address] Care Team Providers Care Motel Keeper Name Role Phone Kylei Reynolds MD Primary Care Provider Brennan le Encounter Details Date Type Department Care Team (Latest Contact Info) Description 01/25/[address] [facility] Yosvany Bell MD [address] [place] [phone] Screening Examination for Venereal Disease Social History Tobacco Use Types Packs/Day Years Used Date Smoking Tobacco: Never Assessed Comments Unknown Sex and Gender Information Value Date Recorded Sex Assigned at Not on file Legal Sex Female 5:26 AM MANAGER MARKET Gender Identity Not on file Sexual Orientation [...] B SURFACE AG NON-REACT MATTHEW NON-REACT MATTHEW [facility] Comment: Lab test performed by: [email or web address] [address] TRIXIE VICTOR MD Blood specimen (specimen) 01/25/2008 4:00 PM CDT 01/25/2008 4:47 PM CDT Yosvany Coppola MD CHEMISTRY ORDERABLES Final R esult Performing Organization Address [facility] Co de Phone Number [facility] CLIA# [id number] [address] [place] [address] * RPR (01/25/2008 4:00 PM CDT) Pathologist [facility] RPR NON-REACTI VE NON-REACT MATTHEW [facility] Comment: Lab test performed by: [facility] [address] [address] [place] [address] TRIXIE VICTOR MD Blood specimen (specimen) 01/25/2008 4:00 PM CDT 01/25/2008 4:47 PM CDT Yosvany Coppola MD CHEMISTRY ORDERABLES Final R esult Performing Organization Address [facility] Co de Phone Number [facility] CLIA# [id number] [address] [place] [address] * HIV ANTIBODY W/REFLX CONFIRMATION (01/25/2008 4:00 PM CDT) Pathologist [facility] HIV-1 AND 2 ABS NON-REACT MATTHEW NON-REACT MATTHEW [facility] Comment: A NON-REACTIVE HIV 1/2 ANTIBODY RESULT DOES NOT EXCLUDE HIV INFECTION SINCE THE TIME FRAME FOR SEROCONVERSION IS VARIABLE. IF ACUTE HIV INFECTION IS SUSPECTED, ANTIBODY RETESTING AND NUCLEIC ACID AMPLIFICATION (HIV DNA/RNA) TESTING IS RECOMMENDED. Lab test performed by: [email or web address] [address] TRIXIE VICTOR MD Effective February 19, 2007, HIV 1/2 Antibody Screen with Reflexed Confirmation has replaced HIV-1 Antibody Screen. HIV-1 Antibody Screen is no longer offered due to lack of available kits from the [employer] operations. Blood specimen (specimen) 01/25/2008 4:00 PM CDT 01/25/2008 4:47 PM CDT Yosvany Coppola MD CHEMISTRY ORDERABLES Final R esult Performing Organization Address City/[facility]/ZIP Co de Phone Number [facility] CLIA# [id number] [address] [place] [address] * HEPATITIS C ANTIBODY (01/25/2008 4:00 PM CDT) SIGNAL TO CUT OFF 0.08 <1.00 [facility] Comment: Lab test performed by: [email or web address] [address] TRIXIE VICTOR MD HEPATITIS C AB NON-REACT MATTHEW NON-REACT MATTHEW [facility] Blood specimen (specimen) 01/25/2008 4:00 PM CDT 01/25/2008 4:47 PM CDT Yosvany Coppola MD CHEMISTRY ORDERABLES Final R esult Performing Organization Address City/[facility] Co de Phone Number [facility] CLIA# [id number] [address] [place] [address] documented in this encounter Visit Diagnoses Diagnosis Screening examination for venereal disease documented in this encounter Care Teams Motel Keeper Relationship Specialty Start Date End Date Kylie Reynolds MD NO ADDRESS ON FILE PCP - General 01/23/01 02/25/16 documented as of this encounter
--- OUTSIDE RECORDS SUMMARY | 2024-10-25 16:18 | XMS_ITS | Encounter Summary ---
Author Organization [facility] Address [address] [place] [address] Care Team Providers Care Rail Loader Name Role Phone Kylie Reynolds MD Primary Care Provider Brennan hagan Encounter Details Date Type Department Care Team (Latest Contact Info) Description 01/23/2008 Outpatient Historical [facility]OP[facility] - Medical [address] [phone] Yosvany Coppola MD [address] [place] [phone] Screening for Malignant Neoplasm of the Cervix Social History Tobacco Use Types Packs/Day Years Used Date Smoking Tobacco: Never Assessed Comments Unknown Sex and Gender Information Value Date Recorded Sex Assigned at Not on file Legal Sex Female 5:26 AM CALCULATOR OPERATOR Gender Identity Not on file Sexual [...] PM CDT) CHLAMYDIA TRACHOMATIS DNA NOT DETECTED [facility] Comment: REFERENCE RANGE: NOT DETECTED GC DNA AMPLIFICATION NOT DETECTED [facility] Comment: REFERENCE RANGE: NOT DETECTED COMMENT ansi See Result Comment [facility] Comment: THE PERFORMANCE CHARACTERISTICS OF THIS ASSAY HAVE BEEN DETERMINED BY [employer]. PERFORMANCE CHARACTERISTICS REFER TO THE ANALYTICAL PERFORMANCE OF THE TEST. Lab test performed by: [facility] [address] [place] [address] TRIXIE VICTOR MD Specimen from uterine cervix (specimen) 01/23/2008 11:40 PM CDT 01/23/2008 11:46 PM CDT us Yosvany Coppola MD BODY FLUIDS AND STOOLS COM F inal Result [facility] CLIA# [id number] [address] [facility] [place] [address] * CERV/VAG CYTOPATH, THIN PREP COUNTER CLERK W/RFLX (01/23/2008 11:40 PM CDT) SOURCE Cervix, Endocervix S [facility] LAST MENSTRUAL PERIOD [facility] CLINICAL INFORMATION Postmenopausal [facility] CYTOTECHNOLOGI ST: AMW, CT(ASCP) [facility] Comment: Lab test performed by: [employer] [facility] [address] [place] [address] TRIXIE VICTOR MD REPORT STATUS FINAL [facility] Accounts Payable Payroll Coordinator Pap Comment This PAP test has been evaluated with computer assisted technology. Based on the cytology result, reflex High Risk HPV DNA testing was not performed. [facility] PREV PAP: INFORMATION NOT PROVIDED [facility] ADEQUACY: SATISFACTORY FOR EVALUATION [facility] PREV BX: INFORMATION NOT PROVIDED [facility] PAP INTERP Negative for intraepithelial lesion or malignancy. Atrophic pattern; predominantly parabasal cells [facility] Specimen from uterine cervix (specimen) 01/23/2008 11:40 PM CDT 01/23/2008 11:46 PM CDT us Yosvany Coppola MD PATHOLOGY/CYTOLOGY ORDERABLE S Final Result [facility] CLIA# [id number] [address] [place] [address] documented in this encounter Visit Diagnoses Diagnosis Screening for malignant neoplasm of the cervix documented in this encounter Care Teams Rail Loader Relationship Specialty Start Date End Date Kylie Reynolds MD NO ADDRESS ON FILE PCP - General 01/23/01 02/25/16 documented as of this encounter
--- OUTSIDE RECORDS SUMMARY | 2024-10-25 16:18 | XMS_ITS | Encounter Summary ---
Author Organization [facility] Address [address] [place] [address] Care Team Providers Care Finisher Map And Chart Name Role Phone Kylie Reynolds MD Primary Care Provider Brennan hagan Encounter Details Date Type Department Care Team (Latest Contact Info) Description 04/03/2008 Outpatient Historical [facility] Yosvany Bell MD [address] [place] [phone] Other Screening Mammogram Social History Tobacco Use Types Packs/Day Years Used Date Smoking Tobacco: Never Assessed Comments Unknown Sex and Gender Information Value Date Recorded Sex Assigned at Not on file Legal Sex Female 5:26 AM SVP OPERATIONS Gender Identity Not on file Sexual Orientation [...] PM CDT Narrative 04/04/2008 4:57 PM CDT [address] [address] Admit Date: 04/03/2008 RINA GONSALES Sex: F Admit Prov: YOSVANY FUENTES Date: 1950 Primary Care Prov: BRIE STALLWORTH CMRN: [id number] Room: [facility] SSN: [id number] IMAGING SERVICES Ordering Prov: YOSVANY FUENTES Accession Number: [id number] Interpretation BILATERAL FULL FIELD DIGITAL SCREENING MAMMOGRAM [...] AMK Procedure Note Rivka Gupta - 04/04/2008 [facility] [address] [place], [place] [address] Admit Date: 04/03/2008 RINA GONSALES Sex: F Admit Prov: YOSVANY FUENTES Date: 1950 Primary Care Prov: BRIE STALLWORTH CMRN: [id number] Room: [facility] SSN: [id number] IMAGING SERVICES Ordering Prov: YOSVANY FUENTES Interpretation [...] mammogram documented in this encounter Care Teams Finisher Map And Chart Relationship Specialty Start Date End Date Kylie Reynolds MD NO ADDRESS ON FILE PCP - General 01/23/01 02/25/16 documented as of this encounter
--- OUTSIDE RECORDS SUMMARY | 2024-10-25 16:18 | XMS_ITS | Encounter Summary ---
Author Organization [employer] Address [address] [place] [address] Care Team Providers Care Back Pad Inspector Name Role Phone Kylie Reynolds MD Primary Care Provider Brennan hagan Encounter Details Date Type Department Care Team (Latest Contact Info) Description 01/21/2008 Outpatient [facility] [address] [place] [phone] Bib Solis MD [address] [place] [address] [address] [place] [address] Bipolar I Disorder, Single Manic Episode, Unspecified (CMS/[facility]) Social History Tobacco Use Types Packs/Day Years Used Date Smoking Tobacco: Never Assessed Comments Unknown Sex and Gender Information Value Date Recorded Sex Assigned at Not on file Legal Sex Female 5:26 AM 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 Gender Identity Not on file Sexual Orientation [...] CARBAMAZEPINE LEVEL 5.4 4.0 - 12.0 ug/mL [facility] Comment:Carbamazepine Toxic Level => 20 ug/mL Blood specimen (specimen) 01/21/2008 1:09 PM CDT 01/21/2008 3:29 PM CDT us Bib Solis MD CHEMISTRY ORDERABLES Final Resul t [facility] [address] [place] [address] * (ABNORMAL) COMPREHENSIVE METABOLIC PANEL (01/21/2008 1:09 PM CDT) CALCIUM 9.4 8.4 - 10.2 mg/dL [facility] CHLORIDE 103 96 - 108 mmol/L [facility] ALBUMIN 4.7 3.4 - 4.8 g/dL [facility] CREATININE 0.65 0.51 - 0.95 mg/dL [facility] SODIUM 140 135 - 145 mmol/L [facility] ALT 27 0 - 31 U/L [facility] ALKALINE PHOSPHATASE 65 35 - 104 U/L [facility] BILIRUBIN TOTAL 0.2 0.2 - 1.0 mg/dL [facility] CO2 28 22 - 30 mmol/L [facility] TOTAL PROTEIN 7.5 6.3 - 8.6 g/dL [facility] POTASSIUM 4.7 3.5 - 4.9 mmol/L [facility] GLUCOSE 81 65 - 99 mg/dL [facility] AST 33(H) 12 - 32 U/L [facility] BUN 20 6 - 20 mg/dL [facility] GFR, >60 >=60 mL/min/1.7 sq meter [facility] GFR >60 >=60 mL/min/1.7 sq meter [facility] Comment: Estimated GFR rate interpretative information for both Americans and non- Americans is available on the [facility] Intranet at: [email or web address] Select: Lab Policies and Procedures Select: Reference Ranges - GFR Blood specimen (specimen) 01/21/2008 1:09 PM CDT 01/21/2008 3:29 PM CDT Bib Solis MD CHEMISTRY ORDERABLES Edited [facility] [address] [place] [address] * (ABNORMAL) CBC WITH DIFFERENTIAL (01/21/2008 1:09 PM CDT) HEMATOCRIT 43.7 35.5 - 44.0 % [facility] RDW-STDEV 42.5 37.1 - 48.7 fL [facility] RBC 4.70 3.90 - 4.90 M/uL [facility] MCHC 32.3 31.5 - 35.5 % [facility] MCV 93.0 82.0 - 99.0 fL [facility] PLATELETS 271 140 - 350 K/uL [facility] HEMOGLOBIN 14.1 11.8 - 14.8 g/dL [facility] RDW 12.7 11.5 - 14.5 % [facility] WBC 4.0 4.0 - 9.8 K/uL [facility] MCH 30.0 27.2 - 32.6 pg [facility] MPV 11.2 9.3 - 12.4 fL [facility] BASOPHILS 1 0 - 2 % [facility] BASOPHILS ABSOLUTE 0.03 0.00 - 0.20 K/uL [facility] MONOCYTES 12 3 - 13 % [facility] MONOCYTE ABSOLUTE 0.48 0.10 - 1.30 K/uL [facility] NEUTROPHILS 44(L) 45 - 70 % [facility] NEUTROPHIL ABSOLUTE 1.75(L) 1.90 - 7.00 K/uL [facility] EOSINOPHILS 4 0 - 7 % [facility] EOSINOPHIL ABSOLUTE 0.14 0.00 - 0.70 K/uL [facility] LYMPHOCYTES 40 16 - 45 % [facility] LYMPHOCYTE ABSOLUTE 1.57 0.70 - 4.50 K/uL [facility] Blood specimen (specimen) 01/21/2008 1:09 PM CDT 01/21/2008 3:29 PM CDT Bib Solis MD HEMATOLOGY ORDERABLES Edited [facility] [address] [place] [address] * TSH (01/21/2008 1:09 PM CDT) TSH 0.90 0.27 - 4.20 uU/mL [facility] Blood specimen (specimen) 01/21/2008 1:09 PM CDT 01/21/2008 3:29 PM CDT Bib Solis MD CHEMISTRY ORDERABLES Final Resul t Performing Organization Address [facility]/State/ZIP Co de Phone Number [facility] [address] [place] [address] documented in this encounter Visit Diagnoses Diagnosis Bipolar I disorder, single manic episode, unspecified (CMS/HCC) Bipolar I disorder, single manic episode, unspecified documented in this encounter Care Teams Back Pad Inspector Relationship Specialty Start Date End Date Kylie Reynolds MD NO ADDRESS ON FILE PCP - General 01/23/01 02/25/16 documented as of this encounter
--- OUTSIDE RECORDS SUMMARY | 2024-10-25 16:18 | XMS_ITS | Encounter Summary ---
Author Organization [employer] Address 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
--- OUTSIDE RECORDS SUMMARY | 2024-10-25 16:18 | XMS_ITS | Encounter Summary ---
Author Organization [facility] Address [address] [place] [address] Phone Care Team Providers Care Construction Craft Laborer Name Role Phone Ramin Angeles DO Unavailable [phone] Jeniffer Burciaga MD Primary Care Provider [phone] Lizz Mccauley RN Unavailable Unavailable Lincoln Simpson DPM Unavailable Unavailable Provider, None Primary Care Provider Unavailabl e Martín Cuenca MD Primary Care Provider [phone] Bairon Ryan MD Unavailable [phone] Larisa Eisenberg HEBREW PROFESSOR, LOOP MACHINE OPERATOR Unavailable + [phone] Cynthia Woody HEBREW PROFESSOR, LOOP MACHINE OPERATOR Primary Care Provider + Elio Monae MD Unavailable Gorge Morel MD Primary Care Provider + [phone] Reason for Visit * Reason Onset Date Comments Hypertension 12/02/2021 Encounter Details Date Type Department Care Team (Late st Contact Info) Description 12/02/2021 [facility] [address] [place] [address] Jeniffer Burciaga MD [address] [place] [address] Hypertension Social History Tobacco Use Types Packs/Day [...] st Contact Info) Description 11/13/2024 8:00 AM BIO MEDICAL TECHNICIAN Procedure Visit [facility] UROLOGY #[address] [place] [address] Davion Alicea MD #[address] [address] 12/18/2024 10:30 AM CDT Office Visit [facility] - Family Medicine [facility] #2 [place] [address] Cynthia Woody APRN, LOOP MACHINE OPERATOR [address] [place] [address] 03/10/2025 1:00 PM CDT [facility] [address] [place] [id number] Gilmar Bond MD [address] [place] [address] Discharge Disposition: Discharged to home or Selfcare documented as of this encounter Visit Diagnoses Not on filedocumented in this encounter Additional Health Concerns Assessment Noted Time PHQ-9 Depression Total Score: 0 04/12/20 18 2:00 PM CDT documented as of this encounter Care Teams Construction Craft Laborer Relationship Specialty Start Date End Date Jeniffer Burciaga MD #[address] [place] [address] PCP - General Family Medicine 02/10/16 09/06/23 Provider, [facility] PCP - General 09/07/23 10/05/23 Martín Cuenca MD #1 [place] [address] PCP - General Family Medicine 10/06/23 02/05/24 Cynthia Woody, HEBREW PROFESSOR, LOOP MACHINE OPERATOR [address] [place] [address] PCP - General Advanced Practice Nurse 02/07/24 Gorge Morel MD [address] [place] [address] PCP - General Infectious Disease 10/15/24 Ramin Angeles DO Consulting Physician Gastroenterology 01/14/16 08/20/24 Lizz Mccauley RN [place] Assemblies And Installations Inspector 12/15/21 08/07/22 Lincoln Simpson, DPM Podiatry 03/30/22 Bairon Ryan MD #2 [place] [address] Consulting Physician Neurology 09/07/23 Larisa Eisenberg APRN, LOOP MACHINE OPERATOR #[address] [address] Nurse Practitioner Advanced Practice Nurse 01/26/24 Elio Monae MD [address] [place] [address] Consulting Physician Pulmonary Disease 06/05/24 documented as of this encounter
--- OUTSIDE RECORDS SUMMARY | 2024-10-25 16:18 | XMS_ITS | Encounter Summary ---
Author Organization [facility] Address [address] [place] [address] Care Team Providers Care Day Care Director Name Role Phone Kylie Reynolds MD Primary Care Provider Brennan hagan Encounter Details Date Type Department Care Team (Latest Contact Info) Description 01/25/2006 Outpatient Historical [facility] [address] [address] Abdominal Pain, Unspecified Site (Primary Dx) Social History Tobacco Use Types Packs/Day Years Used Date Smoking Tobacco: Never Assessed Comments Unknown Sex and Gender Information Value Date Recorded Sex Assigned at Not on file Legal Sex Female 5:26 AM TREASURY ASSOCIATE Gender Identity Not on file Sexual [...] ORDERABLES Final R esult Performing Organization Address [facility] Phone Number INTERFACE SYSTEM Refer to [...] ORDERABLES Final R esult Performing Organization Address [facility] de Phone Number INTERFACE SYSTEM Refer to clinic/hospital department * TSH (01/25/2006 7:37 AM CDT) TSH 1.77 0.27 - 4.20 uU/mL INTERFACE SYSTEM 01/25/2006 7:37 AM CDT Jason Lenz MD CHEMISTRY ORDERABLES Final Re sult Performing Organization Address City/[facility] Co de Phone Number INTERFACE SYSTEM [...] ORDERABLES Final Re sult Performing Organization Address City/[facility]/ZIP Co de Phone Number INTERFACE SYSTEM [...] Primary documented in this encounter Care Teams Day Care Director Relationship Specialty Start Date End Date Kylie Reynolds MD NO ADDRESS ON FILE PCP - General 01/23/01 02/25/16 documented as of this encounter
--- OUTSIDE RECORDS SUMMARY | 2024-10-25 16:18 | XMS_ITS | Encounter Summary ---
Author Organization [employer] Address [address] [place] [address] Care Team Providers Care Performance Analyst Name Role Phone Kylie Reynolds MD [...] on file Legal Sex Female 5:26 AM SOLUTION ANALYST Gender Identity Not on file Sexual Orientation Not on file documented as of this encounter Plan of Treatment Not on file documented as of this encounter Visit Diagnoses Diagnosis Other specified disorders of liver- Primary documented in this encounter Care Teams Performance Analyst Relationship Specialty Start Date End Date Kylie Reynolds MD NO ADDRESS ON FILE PCP - General 01/23/01 02/25/16 documented as of this encounter
--- OUTSIDE RECORDS SUMMARY | 2024-10-25 16:18 | XMS_ITS | Encounter Summary ---
Author Organization [facility] Address [address] [facility] [place] [address] Phone Care Team Providers Care Grape Cutter Name Role Phone Ramin Angeles DO Unavailable [phone] Jeniffer Burciaga MD Primary Care Provider [phone] Lizz Mccauley RN Unavailable Unavailable Lincoln Simpson DPM Unavailable Unavailable Provider, None Primary Care Provider Unavailabl e Martín Cuenca MD Primary Care Provider [phone] Bairon Ryan MD Unavailable [phone] Larisa Eisenberg CLOTHING PATTERN PREPARER, TOOL AND DIE REPAIR Unavailable + [phone] Cynthia Woody CLOTHING PATTERN PREPARER, TOOL AND DIE REPAIR Primary Care Provider + Elio Monae MD Unavailable Gorge Morel MD Primary Care Provider + [phone] Reason for Visit * Reason Comments Medication Refill Encounter Details Date Type Department Care Team (Late st Contact Info) Description 12/26/2021 [facility]ill [facility] [address] [place] [address] Jeniffer Burciaga MD [address] [place] [address] Medication Refill Social History Tobacco Use Types [...] st Contact Info) Description 11/13/2024 8:00 AM CLOUD SYSTEMS ADMINISTRATOR [facility] #2 [place] [address] Davion Alicea MD #[address] [phone] 12/18/2024 10:30 AM CDT [facility] [address] [place] [address] Cynthia Woody, CLOTHING PATTERN PREPARER, TOOL AND DIE REPAIR [address] [place] [address] 03/10/2025 1:00 PM CDT [facility] [address] [place] [address] Gilmar Bond MD [address] [place] [address] Discharge Disposition: Discharged to home or Selfcare documented as of this encounter Visit Diagnoses Not on filedocumented in this encounter Additional Health Concerns Assessment Noted Time PHQ-9 Depression Total Score: 0 04/12/20 2:00 PM CDT documented as of this encounter Care Teams Grape Cutter Relationship Specialty Start Date End Date Jeniffer Burciaga MD #[address] [place] [address] PCP - General Family Medicine 02/10/16 09/06/23 Provider, None [place] PCP - General 09/07/23 10/05/23 Martín Cuenca MD #1 [place] [address] PCP - General Family Medicine 10/06/23 02/05/24 Cynthia Woody, CLOTHING PATTERN PREPARER, TOOL AND DIE REPAIR #[address] [place] [address] PCP - General Advanced Practice Nurse 02/07/24 Gorge Morel MD [address] [address] PCP - General Infectious Disease 10/15/24 Ramin Angeles DO Consulting Physician Gastroenterology 01/14/16 08/20/24 Lizz Mccauley, [place] Wire Frame Maker 12/15/21 08/07/22 Lincoln Simpson DPM Podiatry 03/30/22 Bairon Ryan MD [address] [place] [address] Consulting Physician Neurology 09/07/23 Larisa Eisenberg APRN, TOOL AND DIE REPAIR #[address] [id number] Nurse Practitioner Advanced Practice Nurse 01/26/24 Elio Monae MD [address] [place] [address] Consulting Physician Pulmonary Disease 06/05/24 documented as of this encounter
--- OUTSIDE RECORDS SUMMARY | 2024-10-25 16:18 | XMS_ITS | Encounter Summary ---
Author Organization [employer] Address [address] [place] [address] Care Team Providers Care Peoplesoft Hrms Developer Name Role Phone Kylie Reynolds MD Primary Care Provider Brennan haagn Encounter Details Date Type Department Care Team (Latest Contact Info) Description 07/01/2004 Outpatient Historical [facility] Kylie Gorman MD NO ADDRESS ON FILE HYPERLIPIDEMIA NEC/NOS (Primary Dx) Social History Tobacco Use Types Packs/Day Years Used Date Smoking Tobacco: Never Assessed Comments Unknown Sex and Gender Information Value Date Recorded Sex Assigned at Not on file Legal Sex Female 5:26 AM EHS SPECIALIST Gender Identity Not on file Sexual Orientation Not on file documented as of this encounter Plan of Treatment Not on file documented as of this encounter Visit Diagnoses Diagnosis Other and unspecified hyperlipidemia- Primary documented in this encounter Care Teams Peoplesoft Hrms Developer Relationship Specialty Start Date End Date Kylie Reynolds MD NO ADDRESS ON FILE PCP - General 01/23/01 02/25/16 documented as of this encounter
--- OUTSIDE RECORDS SUMMARY | 2024-10-25 16:18 | XMS_ITS | Encounter Summary ---
Author Organization [facility] Address [address] [place] [address] Phone Care Team Providers Care Administrative Services Manager Name Role Phone Ramin Angeles DO Unavailable [phone] Jeniffer Burciaga MD Primary Care Provider [phone] Lizz Mccauley RN Unavailable Unavailable Lincoln Simpson DPM Unavailable Unavailable Provider, None Primary Care Provider Unavailabl e Martín Cuenca MD Primary Care Provider [phone] Bairon Ryan MD Unavailable [phone] Larisa Eisenberg LIQUOR BLENDER, AUTOMOTIVE REFINISHER Unavailable + [phone] Cynthia Woody LIQUOR BLENDER, AUTOMOTIVE REFINISHER Primary Care Provider + Elio Monae MD Unavailable Gorge Morel MD Primary Care Provider + [phone] Encounter Details Date Type Department Care Team (Late st Contact Info) Description 11/15/2021 [facility] [address] [place] [address] [place] [address] [facility] [address] [place] [address] Bacteremia; Infection and inflammatory reaction due to internal fixation device of right ulna, initial encounter ([facility]) Social History Tobacco Use Types Packs/Day [...] COVID-19? No / Unsure 11/16/2021 2:05 PM ADVENTURE EDUCATION TEACHER documented as of this encounter Plan of Treatment Upcoming Encounters Date Type Department Care Team (Late st Contact Info) Description 11/13/2024 8:00 AM ADVENTURE EDUCATION TEACHER Procedure Visit [facility] UR[facility]Y #[address] [place] [address] Davion Alicea MD #2 [facility] [address] [place] [address] 12/18/2024 10:30 AM CDT Office [facility] [address] [place] [address] Cynthia Woody, LIQUOR BLENDER, AUTOMOTIVE REFINISHER [address] [place] [address] 03/10/2025 1:00 PM CDT Office Visit [facility] On[facility] Services [address] [place] [address] Gilmar Bond MD [address] [place] [address] Discharge Disposition: Discharged to home or Selfcare documented as of this encounter Procedures Procedure Name Priority Date/Time Associated Diagnosis Comments CBC WITH AUTO DIFFERENTIAL Routine 11/15/2021 10:45 AM ADVENTURE EDUCATION TEACHER Bacteremia Infection and inflammatory reaction due to internal fixation device of right ulna, initial encounter (HCC) VANCOMYCIN TROUGH Routine 11/15/2021 10: 45 AM ADVENTURE EDUCATION TEACHER Bacteremia Infection and inflammatory reaction due to internal fixation device of right ulna, initial encounter (HCC) CMP (COMPREHENSIVE METABOLIC PANEL) Routine 11/15/2021 10:45 AM ADVENTURE EDUCATION TEACHER Bacteremia Infection and inflammatory reaction due to internal fixation device of right ulna, initial encounter (HCC) COMPLETE BLOOD COUNT (CBC) WITH DIFF Routine 11/15/2021 10:45 AM ADVENTURE EDUCATION TEACHER Bacteremia Infection and inflammatory reaction due to internal fixation device of right ulna, initial encounter (HCC) documented in this encounter Results * (ABNORMAL) CBC WITH AUTO DIFFERENTIAL (11/15/2021 10:45 AM ADVENTURE EDUCATION TEACHER) WBC 4.24 4.00 - 12.00 10(3)/mcL 11/15/2021 1:18 PM ADVENTURE EDUCATION TEACHER [facility] RBC 2.98(L) 3.80 - 5.30 10(6)/mcL 11/15/2021 1:18 PM ADVENTURE EDUCATION TEACHER [facility] HEMOGLOBIN (HGB) 7.7(L) 12.0 - 15.8 g/dL 11/15/2021 1:18 PM ADVENTURE EDUCATION TEACHER [facility] HEMATOCRIT (HCT) 25.5(L) 36.0 - 47.0 % 11/15/2021 1:18 PM [facility] MCV 85.6 82.0 - 96.0 fL 11/15/2021 1:18 PM [facility] MCH 25.8(L) 26.0 - 34.0 pg 11/15/2021 1:18 PM [facility] MCHC 30.2(L) 31.0 - 36.0 g/dL 11/15/2021 1:18 PM [facility] PLATELET COUNT 453(H) 140 - 440 10(3)/[facility] 11/15/2021 1:18 PM [facility] RDW 15.3 11.8 - 15.5 % 11/15/2021 1:18 PM [facility] MPV 9.3(L) 9.7 - 12.4 fL 11/15/2021 1:18 PM [facility] NEUTROPHILS 41.8(L) 47.0 - 73.0 % 11/15/2021 1:18 PM [facility] LYMPHOCYTES 41.3 18.0 - 42.0 % 11/15/2021 1:18 PM [facility] MONOCYTES 12.7(H) 4.0 - 12.0 % 11/15/2021 1:18 PM [facility] EOSINOPHILS 3.5 0.0 - 5.0 % 11/15/2021 1:18 PM [facility] BASOPHILS 0.7 0.0 - 1.0 % 11/15/2021 1:18 PM [facility] ABSOLUTE NEUTROPHILS 1.77 1.60 - 7.70 10(3)/mcL 11/15/2021 1:18 PM [facility] ABSOLUTE LYMPHOCYTES 1.75 1.30 - 3.20 10(3)/mcL 11/15/2021 1:18 PM [facility] ABSOLUTE MONOCYTES 0.54 0.20 - 1.00 10(3)/mcL 11/15/2021 1:18 PM [facility] ABSOLUTE EOSINOPHIL 0.15 0.00 - 0.40 10(3)/mcL 11/15/2021 1:18 PM ADVENTURE EDUCATION TEACHER [facility] ABSOLUTE BASOPHILS 0.03 0.00 - 0.10 10(3)/mcL 11/15/2021 1:18 PM ADVENTURE EDUCATION TEACHER [facility] NRBC PER 100 WBC 0 11/15/19 1:18 PM ADVENTURE EDUCATION TEACHER [facility] Blood No Phlebotomy Charged / Unknown 11/15/2021 10:45 AM ADVENTURE EDUCATION TEACHER 11/15/2021 1:11 PM ADVENTURE EDUCATION TEACHER Anya Mccrary MD HEMATOLOGY ORDERABLES Fi nal Result Performing Organization Address City/[facility]/ZIP Co de Phone Number [facility] [address] [place] [address] * (ABNORMAL) VANCOMYCIN TROUGH (11/15/2021 10:45 AM ADVENTURE EDUCATION TEACHER) Pathologist [facility] VANCOMYCIN, TROUGH 12(H) 5 - 10 mcg/mL 11/15/2021 1:54 PM ADVENTURE EDUCATION TEACHER [facility] Blood No Phlebotomy Charged / Unknown 11/15/2021 10:45 AM ADVENTURE EDUCATION TEACHER 11/15/2021 1:11 PM ADVENTURE EDUCATION TEACHER Anya Mccrary MD CHEMISTRY ORDERABLES Fin al Result Performing Organization Address City/[facility]/ZIP Co de Phone Number [facility] [address] [place] [address] * (ABNORMAL) CMP (COMPREHENSIVE METABOLIC PANEL) (11/15/2021 10:45 AM ADVENTURE EDUCATION TEACHER) SODIUM 137 136 - 144 mmol/L 11/15/2021 1:54 PM ADVENTURE EDUCATION TEACHER [facility] POTASSIUM 4.0 3.5 - 5.1 mmol/L 11/15/2021 1:54 PM ADVENTURE EDUCATION TEACHER [facility] CHLORIDE 100 100 - 110 mmol/L 11/15/2021 1:54 PM ADVENTURE EDUCATION TEACHER [facility] CO2, VENOUS 24 22 - 32 mmol/L 11/15/2021 1:54 PM [facility] ANION GAP 17.0 8.0 - 20.0 mmol/L 11/15/2021 1:54 PM [facility] GLUCOSE 109(H) 70 - 99 mg/dL 11/15/2021 1:54 PM [facility] BUN 14 8 - 23 mg/dL 11/15/2021 1:54 PM [facility] CREATININE, BLOOD 0.59(L) 0.60 - 1.10 mg/dL 11/15/2021 1:54 PM [facility] BUN/CREATININE RATIO 24(H) 12 - 20 ratio 11/15/2021 1:54 PM [facility] TOTAL PROTEIN 6.6 6.0 - 8.3 g/dL 11/15/2021 1:54 PM [facility] ALBUMIN 4.1 3.5 - 5.2 g/dL 11/15/2021 1:54 PM [facility] Comment: The colormetric methods used for the determination of Albumin may lead to falsely elevated test results in patients suffering from renal failure or insufficiency due to interference with other proteins. A/G RATIO 1.6 1.0 - 2.0 11/15/2021 1:54 PM [facility] CALCIUM 9.0 8.9 - 10.3 mg/dL 11/15/2021 1:54 PM [facility] T BILI <0.3 <=1.2 mg/dL 11/15/2021 1:54 PM [facility] SGOT (AST) 20 <=32 U/L 11/15/2021 1:54 PM [facility] SGPT (ALT) 21 <=41 U/L 11/15/2021 1:54 PM [facility] ALKALINE PHOSPHATASE 129(H) 35 - 105 U/L 11/15/2021 1:54 PM [facility] GFR, EST. NONAFRICAN >60 >=60 11/15/2021 1:54 PM ADVENTURE EDUCATION TEACHER [facility] GFR, EST. >60 >=60 022 1:54 PM ADVENTURE EDUCATION TEACHER [facility] Comment: Creatinine Clearance is the preferred criteria for selecting drug dose adjustments in renally impaired patients. The GFR is provided as additional pertinent clinical information. GFR is reported in mL/min/1.73 sq m. Blood No Phlebotomy Charged / Unknown 11/15/2021 10:45 AM ADVENTURE EDUCATION TEACHER 11/15/2021 1:11 PM ADVENTURE EDUCATION TEACHER us Anya Mccrary MD CHEMISTRY ORDERABLES Fin al Result [facility] #[address] [place] [address] documented in this encounter Visit Diagnoses Diagnosis Bacteremia Infection and inflammatory reaction due to internal fixation device of right ulna, initial encounter ([facility]) documented in this encounter Additional Health Concerns Assessment Noted Time PHQ-9 Depression Total Score: 0 04/12/20 18 2:00 PM CDT documented as of this encounter Care Teams Administrative Services Manager Relationship Specialty Start Date End Date Jeniffer Burciaga MD #[address] [place] [address] PCP - General Family Medicine 02/10/16 09/06/23 Provider, None [place] PCP - General 09/07/23 10/05/23 Martín Cuenca MD #1 [place] [address] PCP - General Family Medicine 10/06/23 02/05/24 Cynthia Woody, LIQUOR BLENDER, AUTOMOTIVE REFINISHER #[address] [place] [address] PCP - General Advanced Practice Nurse 02/07/24 Gorge Morel MD [address] [address] PCP - General Infectious Disease 10/15/24 Ramin Angeles DO Consulting Physician Gastroenterology 01/14/16 08/20/24 Lizz Mccauley RN [place] Auto Dealer 12/15/21 08/07/22 Lincoln Simpson DPM Podiatry 03/30/22 Bairon Ryan MD [address] [place] [address] Consulting Physician Neurology 09/07/23 Larisa Eisenberg APRN, AUTOMOTIVE REFINISHER #2 [facility] [address] [place] [address] Nurse Practitioner Advanced Practice Nurse 01/26/24 Elio Monae MD [address] [place] [address] Consulting Physician Pulmonary Disease 06/05/24 documented as of this encounter
--- OUTSIDE RECORDS SUMMARY | 2024-10-25 16:18 | XMS_ITS | Encounter Summary ---
Author Organization [facility] Address [address] [place] [address] Care Team Providers Care Diploma Pharmacy Technician Name Role Phone Martín Cuenca MD Primary Care Provider [phone] Encounter Details Date Type Department Care Team (Late st Contact Info) Description 10/23/2024 Orders Only [facility] Health Information Management [address] [place] [address] Scanning, Provider Social History Tobacco Use Types Packs/Day Years Used Date Smoking Tobacco: Former Cigarettes 1 22 1 970 - 1991 Smokeless Tobacco: Never Alcohol Use [...] more points, staff should administer the PHQ-9) 3 10/25/2024 Comments No Sex and Gender Information Value Date Recorded Sex Assigned at Not on file Legal Sex Female 5:[address] LIGHT REPAIRER HELPER Gender Identity Female 10/19/2020 7:[address] LIGHT REPAIRER HELPER Sexual Orientation Straight 10/19/2020 7: [address] LIGHT REPAIRER HELPER Occupation Industry Job Start Date Job End Date Retired Not on file Not on file Not on file documented as of this encounter Plan of Treatment Not on file documented as of this encounter Goals Goal Patient Goal Type Associated Problems Recent Progress Patient-Stated? Author [facility] On track( 024 10:[address] LIGHT REPAIRER HELPER) No Miles Alanis, RN Note: Walking, sitting, sleeping, moving about with minimal to no pain. documented as of this encounter Procedures Procedure Name Priority Date/Time Associated Diagnosis Comments SCAN - LABS 10/23/2024 10:[address] LIGHT REPAIRER HELPER documented in this encounter Results * SCAN - LABS (10/23/2024 10:[address] LIGHT REPAIRER HELPER) us Provider Scanning Final Result documented in this encounter Visit Diagnoses Not on filedocumented in this encounter Care Teams Diploma Pharmacy Technician Relationship Specialty Start Date End Date Martín Cuenca MD [address] [address] PCP - General Family Medicine 12/04/23 documented as of this encounter
--- OUTSIDE RECORDS SUMMARY | 2024-10-25 16:18 | XMS_ITS | Encounter Summary ---
Author Organization [employer] Address [address] [place] [address] Care Team Providers Care Bin Filler Name Role Phone Kylie Reynolds MD Primary Care Provider Brennan hagan Encounter Details Date Type Department Care Team (Latest Contact Info) Description 07/28/2004 Outpatient [facility] [address] [place] [address] Kylie Reynolds MD NO ADDRESS ON FILE LUMBAR DISC DISPLACEMENT (Primary Dx) Social History Tobacco Use Types Packs/Day Years Used Date Smoking Tobacco: Never Assessed Comments Unknown Sex and Gender Information Value Date Recorded Sex Assigned at Not on file Legal Sex Female 5:26 AM COREMAKER APPRENTICE Gender Identity Not on file Sexual Orientation Not on file documented as of this encounter Plan of Treatment Not on file documented as of this encounter Visit Diagnoses Diagnosis 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
--- OUTSIDE RECORDS SUMMARY | 2024-10-25 16:18 | XMS_ITS | Encounter Summary ---
Author Organization [facility] Address [address] [place] [address] Care Team Providers Care Yard Clerk Name Role Phone Kylie Reynolds MD Primary Care Provider Unavailab le Encounter Details Date Type Department Care Team (Late st Contact Info) Description 06/19/2006 Outpatient Historical [facility] [address] [place] [address] Kylie Reynolds MD NO ADDRESS ON FILE Social History Tobacco Use Types Packs/Day Years Used Date Smoking Tobacco: Never Assessed Comments Unknown Sex and Gender Information Value Date Recorded Sex Assigned at Not on file Legal Sex Female 5:26 AM INTERMODAL DISPATCHER Gender Identity Not on file Sexual Orientation Not on file documented as of this encounter Plan of Treatment Not on file documented as of this encounter Visit Diagnoses Not on filedocumented in this encounter Care Teams Yard Clerk Relationship Specialty Start Date End Date Kylie Reynolds MD NO ADDRESS ON FILE PCP - General 01/23/01 02/25/16 documented as of this encounter
--- OUTSIDE RECORDS SUMMARY | 2024-10-25 16:18 | XMS_ITS | Encounter Summary ---
Author Organization [facility] Address [address] [place] [address] Care Team Providers Care Glove Tagger Name Role Phone Kylie Reynolds MD Primary Care Provider Brennan hagan Encounter Details Date Type Department Care Team (Late st Contact Info) Description 07/22/2008 Outpatient Historical [facility] Bib Mace MD [address] [place] [address] [address] [place] [address] Social History Tobacco Use Types Packs/Day Years Used Date Smoking Tobacco: Never Assessed Comments Unknown Sex and Gender Information Value Date Recorded Sex Assigned at Not on file Legal Sex Female 5:26 AM WORK DISTRIBUTOR Gender Identity Not on file Sexual Orientation Not on file documented as of this encounter Plan of Treatment Not on file documented as of this encounter Procedures Procedure Name Priority Date/Time Associated Diagnosis Comments CBC WITH DIFFERENTIAL Routine 07/22/2008 4:49 PM WORK DISTRIBUTOR documented in this encounter Results * CBC WITH DIFFERENTIAL (07/22/2008 4:49 PM WORK DISTRIBUTOR) WBC 6.6 4.0 - 9.8 K/uL [facility] MCH 30.7 27.2 - 32.6 pg [facility] MPV 10.9 9.3 - 12.4 fL [facility] HEMATOCRIT 39.0 35.5 - 44.0 % [facility] RDW-STDEV 43.2 37.1 - 48.7 fL [facility] RBC 4.23 3.90 - 4.90 M/uL [facility] MCHC 33.3 31.5 - 35.5 % [facility] MCV 92.2 82.0 - 99.0 fL [facility] PLATELETS 229 140 - 350 K/uL [facility] HEMOGLOBIN 13.0 11.8 - 14.8 g/dL [facility] RDW 12.8 11.5 - 14.5 % [facility] BASOPHILS 0 0 - 2 % [facility] BASOPHILS ABSOLUTE 0.02 0.00 - 0.20 K/uL [facility] MONOCYTES 10 3 - 13 % [facility] MONOCYTE ABSOLUTE 0.62 0.10 - 1.30 K/uL [facility] NEUTROPHILS 60 45 - 70 % [facility] NEUTROPHIL ABSOLUTE 3.96 1.90 - 7.00 K/uL [facility] EOSINOPHILS 1 0 - 7 % [facility] EOSINOPHIL ABSOLUTE 0.05 0.00 - 0.70 K/uL [facility] LYMPHOCYTES 29 16 - 45 % [facility] LYMPHOCYTE ABSOLUTE 1.91 0.70 - 4.50 K/uL [facility] Blood specimen (specimen) 07/22/2008 4:49 PM WORK DISTRIBUTOR 07/22/2008 4:58 PM WORK DISTRIBUTOR us Bib Solis MD HEMATOLOGY ORDERABLES Edited INTERFACE SYSTEM Refer to clinic/hospital department [facility] CLIA# [id number] [address] [place] [address] documented in this encounter Visit Diagnoses Not on filedocumented in this encounter Care Teams Glove Tagger Relationship Specialty Start Date End Date Kylie Reynolds MD NO ADDRESS ON FILE PCP - General 01/23/01 02/25/16 documented as of this encounter
--- OUTSIDE RECORDS SUMMARY | 2024-10-25 16:18 | XMS_ITS | Encounter Summary ---
Author Organization [facility] Address [address] [place] [address] Care Team Providers Care Lidar Analyst Name Role Phone Kylie Reynolds MD Primary Care Provider Brennan hagan Encounter Details Date Type Department Care Team (Latest Contact Info) Description 12/22/2004 Outpatient Historical [facility] Mack Bradshaw MD [address] [facility] [place] [id number] CHEST PAIN NOS (Primary Dx) Social History Tobacco Use Types Packs/Day Years Used Date Smoking Tobacco: Never Assessed Comments Unknown Sex and Gender Information Value Date Recorded Sex Assigned at Not on file Legal Sex Female 5:26 AM COMMUNITY INTEGRATION SPECIALIST Gender Identity Not on file Sexual Orientation Not on file documented as of this encounter Plan of Treatment Not on file documented as of this encounter Visit Diagnoses Diagnosis Chest pain, unspecified- Primary documented in this encounter Care Teams Lidar Analyst Relationship Specialty Start Date End Date Kylie Reynolds MD NO ADDRESS ON FILE PCP - General 01/23/01 02/25/16 documented as of this encounter
--- OUTSIDE RECORDS SUMMARY | 2024-10-25 16:18 | XMS_ITS | Encounter Summary ---
Author Organization [facility] Address [address] [place] [address] Care Team Providers Care Front Office Spec Name Role Phone Kylie Reynolds MD Primary Care Provider Unavailab le Encounter Details Date Type Department Care Team (Latest Contact Info) Description 02/16/2006 Outpatient Historical [facility] [address] Ronnie [address] MD NO ADDRESS ON FILE Dyspepsia and Other Specified Disorders of Function of Stomach (Primary Dx) Social History Tobacco Use Types Packs/Day Years Used Date Smoking Tobacco: Never Assessed Comments Unknown Sex and Gender Information Value Date Recorded Sex Assigned at Not on file Legal Sex Female 5:26 AM DRAFTING TEACHER Gender Identity Not on file Sexual Orientation Not on file documented as of this encounter Plan of Treatment Not on file documented as of this encounter Visit Diagnoses Diagnosis Dyspepsia and other specified disorders of function of stomach- Primary documented in this encounter Care Teams Front Office Spec Relationship Specialty Start Date End Date Kylie Reynolds MD NO ADDRESS ON FILE PCP - General 01/23/01 02/25/16 documented as of this encounter
--- OUTSIDE RECORDS SUMMARY | 2024-10-25 16:18 | XMS_ITS | Encounter Summary ---
Author Organization [facility] Address [address] [place] [address] Care Team Providers Care Bagman/Woman Name Role Phone Kylie Reynolds MD Primary Care Provider Unavail le Encounter Details Date Type Department Care Team (Late st Contact Info) Description 10/26/2005 Outpatient Historical [facility] MACHINE SET UP OPERATOR - Medical [address] [address] Yosvany Coppola MD [address] [place] [address] Social History Tobacco Use Types Packs/Day Years Used Date Smoking Tobacco: Never Assessed Comments Unknown Sex and Gender Information Value Date Recorded Sex Assigned at Not on file Legal Sex Female 5:26 AM CITY TAX AUDITOR Gender Identity Not on file Sexual Orientation Not on file documented as of this encounter Plan of Treatment Not on file documented as of this encounter Visit Diagnoses Not on filedocumented in this encounter Care Teams Bagman/Woman Relationship Specialty Start Date End Date Kylie Reynolds MD NO ADDRESS ON FILE PCP - General 01/23/01 02/25/16 documented as of this encounter
--- OUTSIDE RECORDS SUMMARY | 2024-10-25 16:18 | XMS_ITS | Encounter Summary ---
Author Organization [facility] Address [address] [place] [address] Care Team Providers Care Credit Consultant Name Role Phone Kylie Reynolds MD Primary Care Provider Unavailab le Encounter Details Date Type Department Care Team (Late st Contact Info) Description 12/22/2004 Outpatient Historical [facility] [address] [place] [address] Kylie Reynolds MD NO ADDRESS ON FILE Social History Tobacco Use Types Packs/Day Years Used Date Smoking Tobacco: Never Assessed Comments Unknown Sex and Gender Information Value Date Recorded Sex Assigned at Not on file Legal Sex Female 5:26 AM CHILD ATTENDANT Gender Identity Not on file Sexual Orientation Not on file documented as of this encounter Plan of Treatment Not on file documented as of this encounter Visit Diagnoses Not on filedocumented in this encounter Care Teams Credit Consultant Relationship Specialty Start Date End Date Kylie Reynolds MD NO ADDRESS ON FILE PCP - General 01/23/01 02/25/16 documented as of this encounter
--- OUTSIDE RECORDS SUMMARY | 2024-10-25 16:18 | XMS_ITS | Encounter Summary ---
Author Organization [facility] Address [address] [place] [address] Care Team Providers Care Hand Dry Cleaner Name Role Phone Kylie Reynolds MD Primary Care Provider Brennan hagan Encounter Details Date Type Department Care Team (Latest Contact Info) Description 10/05/2004 Outpatient Historical [facility] Kylie Gorman MD NO ADDRESS ON FILE AFTERCARE SUBSTATION OPERATOR USE MEDICATN (Primary Dx) Social History Tobacco Use Types Packs/Day Years Used Date Smoking Tobacco: Never Assessed Comments Unknown Sex and Gender Information Value Date Recorded Sex Assigned at Not on file Legal Sex Female 5:26 AM PROCESS ENG Gender Identity Not on file Sexual Orientation Not on file documented as of this encounter Plan of Treatment Not on file documented as of this encounter Procedures Procedure Name Priority Date/Time Associated Diagnosis Comments CBC WITH DIFFERENTIAL Routine 10/05/2004 3:49 PM PROCESS ENG CBC WITH DIFFERENTIAL Routine 10/05/2004 3:49 PM PROCESS ENG PTT Routine 10/05/2004 3:49 PM PROCESS ENG PROTIME-INR Routine 10/05/2004 3:49 PM PROCESS ENG HEPATIC FUNCTION PANEL Routine 10/05/2004 3:49 PM PROCESS ENG LIPID PANEL Routine 10/05/2004 3:49 PM PROCESS ENG documented in this encounter Results * CBC WITH DIFFERENTIAL (10/05/2004 3:49 PM PROCESS ENG) NEUTROPHILS 53 45 - 70 % INTERFAC [...] 0.20 K/uL INTERFACE SYSTEM 10/05/2004 3:49 PM PROCESS ENG Kylie Reynolds MD HEMATOLOGY ORDERABLES Final Resu lt Performing Organization Address [facility] de Phone Number INTERFACE SYSTEM Refer to clinic/hospital department * CBC WITH DIFFERENTIAL (10/05/2004 3:49 PM PROCESS ENG) WBC 5.0 4.0 - 9.8 K/uL INTERFACE [...] 12.4 fL INTERFACE SYSTEM 10/05/2004 3:49 PM PROCESS ENG Kylie Reynolds MD HEMATOLOGY ORDERABLES Final Resu lt Performing Organization Address City/[facility] de Phone Number INTERFACE SYSTEM Refer to clinic/hospital department * PTT (10/05/2004 3:49 PM PROCESS ENG) PTT 32.2 25.0 - 35.0 Seconds INTERFACE SYSTEM Comment: PTT Therapeutic Range: Heparin Level PTT (seconds) <0.10 units/mL <45 0.10 - 0.30 units/mL 45 - 65 0.30 - 0.70 units/mL* 65 - 106* 0.70 - 1.00 units/mL 106 - 137 *corresponds to therapeutic range for unfractionated heparin 10/05/2004 3:49 PM PROCESS ENG Kylie Reynolds MD HEMATOLOGY ORDERABLES Final Resu lt Performing Organization Address [facility] Phone Number INTERFACE SYSTEM Refer to clinic/hospital department * PROTIME-INR (10/05/2004 3:49 PM PROCESS ENG) PROTIME 14.2 12.9 - 15.7 Seconds INTERFACE [...] have not been established. 10/05/2004 3:49 PM PROCESS ENG Kylie Reynolds MD HEMATOLOGY ORDERABLES [facility] Address [facility] Phone Number INTERFACE SYSTEM Refer to clinic/hospital department * (ABNORMAL) HEPATIC FUNCTION PANEL (10/05/2004 3:49 PM PROCESS ENG) AST 40(H) 12 - 32 U/L INTERFACE SYSTEM ALKALINE PHOSPHATASE 53 35 - 104 U/L INTERFACE SYSTEM BILIRUBIN TOTAL 0.2 0.2 - 1.0 mg/dL INTERFACE SYSTEM ALBUMIN 4.4 3.4 - 4.8 g/dL INTERFACE SYSTEM TOTAL PROTEIN 6.9 6.3 - 8.6 g/dL INTERFACE SYSTEM ALT 40(H) 0 - 31 U/L INTERFACE SYSTEM BILIRUBIN DIRECT 0.1 0.0 - 0.3 mg/dL INTERFACE SYSTEM 10/05/2004 3:49 PM PROCESS ENG Kylie Reynolds MD CHEMISTRY ORDERABLES Final Resul t Performing Organization Address City/[facility] de Phone Number INTERFACE SYSTEM Refer to clinic/hospital department * (ABNORMAL) LIPID PANEL (10/05/2004 3:49 PM PROCESS ENG) CHOLESTEROL 185 100 - 199 mg/dL INTERFACE [...] - 129 High >=130 10/05/2004 3:49 PM PROCESS ENG Kylie Reynolds MD CHEMISTRY ORDERABLES Final Resul t Performing Organization Address [facility] Co de Phone Number INTERFACE SYSTEM Refer to clinic/hospital department documented in this encounter Visit Diagnoses Diagnosis Encounter for long-term (current) use of other medications- Primary documented in this encounter Care Teams Hand Dry Cleaner Relationship Specialty Start Date End Date Kylie Reynolds MD NO ADDRESS ON FILE PCP - General 01/23/01 02/25/16 documented as of this encounter
--- OUTSIDE RECORDS SUMMARY | 2024-10-25 16:19 | XMS_ITS | Encounter Summary ---
Author Organization [facility] Address [address] [place] [address] Care Team Providers Care Can Bander Operator Name Role Phone Kylie Reynolds MD Primary Care Provider Brennan hagan Encounter Details Date Type Department Care Team (Latest Contact Info) Description 12/31/2003 Outpatient Historical [facility] [address], Ronnie Yi MD NO ADDRESS ON FILE ABNORMAL LIVER FUNCTION STUDY (Primary Dx) Social History Tobacco Use Types Packs/Day Years Used Date Smoking Tobacco: Never Assessed Comments Unknown Sex and Gender Information Value Date Recorded Sex Assigned at Not on file Legal Sex Female 5:26 AM COLLECTIONS DIRECTOR Gender Identity Not on file Sexual Orientation Not on file documented as of this encounter Plan of Treatment Not on file documented as of this encounter Visit Diagnoses Diagnosis Nonspecific abnormal results of liver function study- Primary documented in this encounter Care Teams Can Bander Operator Relationship Specialty Start Date End Date Kylie Reynolds MD NO ADDRESS ON FILE PCP - General 01/23/01 02/25/16 documented as of this encounter
--- OUTSIDE RECORDS SUMMARY | 2024-10-25 16:19 | XMS_ITS | Encounter Summary ---
Author Organization [facility] Address [address] [place] [address] Care Team Providers Care Pan Dumper Name Role Phone Kylie Reynolds MD Primary Care Provider Unavailab le Encounter Details Date Type Department Care Team (Late st Contact Info) Description 09/07/2000 Outpatient Historical [facility] Medicine [address] [place] [address] Kylie Reynolds MD NO ADDRESS ON FILE Social History Tobacco Use Types Packs/Day Years Used Date Smoking Tobacco: Never Assessed Comments Unknown Sex and Gender Information Value Date Recorded Sex Assigned at Not on file Legal Sex Female 5:26 AM DISTRICT REPRESENTATIVE Gender Identity Not on file Sexual Orientation Not on file documented as of this encounter Plan of Treatment Not on file documented as of this encounter Visit Diagnoses Not on filedocumented in this encounter Care Teams Pan Dumper Relationship Specialty Start Date End Date Kylie Reynolds MD NO ADDRESS ON FILE PCP - General 01/23/01 02/25/16 documented as of this encounter
--- OUTSIDE RECORDS SUMMARY | 2024-10-25 16:19 | XMS_ITS | Encounter Summary ---
Author Organization [facility] Address [address] [place] [address] Care Team Providers Care Extruder Operator Multiple Name Role Phone Kylie Reynolds MD Primary Care Provider Unavail le Encounter Details Date Type Department Care Team (Late st Contact Info) Description 01/09/2003 Outpatient Historical [facility] [place] [id number] [place] [address] [place] [address] [facility] [address] [place] [address] Social History Tobacco Use Types Packs/Day Years Used Date Smoking Tobacco: Never Assessed Comments Unknown Sex and Gender Information Value Date Recorded Sex Assigned at Not on file Legal Sex Female 5:26 AM MECHANISM INSPECTOR Gender Identity Not on file Sexual Orientation Not on file documented as of this encounter Plan of Treatment Not on file documented as of this encounter Visit Diagnoses Not on filedocumented in this encounter Care Teams Extruder Operator Multiple Relationship Specialty Start Date End Date Kylie Reynolds MD NO ADDRESS ON FILE PCP - General 01/23/01 02/25/16 documented as of this encounter
--- OUTSIDE RECORDS SUMMARY | 2024-10-25 16:19 | XMS_ITS | Encounter Summary ---
Author Organization [employer] Address [address] [place] [address] Care Team Providers Care Pneumatic Systems Operator Name Role Phone Kylie Reynolds MD [...] on file Legal Sex Female 5:26 AM MEMBER OF TECHNICAL STAFF Gender Identity Not on file Sexual Orientation Not on file documented as of this encounter Plan of Treatment Not on file documented as of this encounter Visit Diagnoses Diagnosis Other abnormal blood chemistry- Primary documented in this encounter Care Teams Pneumatic Systems Operator Relationship Specialty Start Date End Date Kylie Reynolds MD NO ADDRESS ON FILE PCP - General 01/23/01 02/25/16 documented as of this encounter
--- OUTSIDE RECORDS SUMMARY | 2024-10-25 16:19 | XMS_ITS | Encounter Summary ---
Author Organization [employer] Address [address] [place] [address] Care Team Providers Care Internal Communications Specialist Name Role Phone Kylie Reynolds MD [...] on file Legal Sex Female 5:26 AM EDGING MACHINE OPERATOR Gender Identity Not on file Sexual Orientation Not on file documented as of this encounter Plan of Treatment Not on file documented as of this encounter Visit Diagnoses Diagnosis Injury of face and neck- Primary documented in this encounter Care Teams Internal Communications Specialist Relationship Specialty Start Date End Date Kylie Reynolds MD NO ADDRESS ON FILE PCP - General 01/23/01 02/25/16 documented as of this encounter
--- OUTSIDE RECORDS SUMMARY | 2024-10-25 16:19 | XMS_ITS | Encounter Summary ---
Author Organization [employer] Address [address] [place] [address] Care Team Providers Care Sawmill Production Worker Name Role Phone Kylie Reynolds MD Primary Care Provider Brennan hagan Encounter Details Date Type Department Care Team (Late st Contact Info) Description 03/02/2004 Outpatient Historical [facility] Support Serv. (Adt Cardiology-[facility]) [address] [place] [address] Kirill Braga MD [address] [facility] [address] [place] [address] Social History Tobacco Use Types Packs/Day Years Used Date Smoking Tobacco: Never Assessed Comments Unknown Sex and Gender Information Value Date Recorded Sex Assigned at Not on file Legal Sex Female 5:26 AM SEED AND FERTILIZER SPECIALIST Gender Identity Not on file Sexual Orientation Not on file documented as of this encounter Plan of Treatment Not on file documented as of this encounter Visit Diagnoses Not on filedocumented in this encounter Care Teams Sawmill Production Worker Relationship Specialty Start Date End Date Kylie Reynolds MD NO ADDRESS ON FILE PCP - General 01/23/01 02/25/16 documented as of this encounter
--- OUTSIDE RECORDS SUMMARY | 2024-10-25 16:19 | XMS_ITS | Encounter Summary ---
Author Organization [employer] Address [address] [place] [address] Care Team Providers Care Control Electrician Name Role Phone Kylie Reynolds MD Primary Care Provider Unavailab hagan Encounter Details Date Type Department Care Team (Latest Contact Info) Description 06/26/2003 Outpatient Historical [facility], [address] Kylie Reynolds MD NO ADDRESS ON FILE SHORTNESS OF BREATH (Primary Dx) Social History Tobacco Use Types Packs/Day Years Used Date Smoking Tobacco: Never Assessed Comments Unknown Sex and Gender Information Value Date Recorded Sex Assigned at Not on file Legal Sex Female 5:26 AM STICK FEEDER Gender Identity Not on file Sexual Orientation Not on file documented as of this encounter Plan of Treatment Not on file documented as of this encounter Visit Diagnoses Diagnosis Shortness of breath- Primary documented in this encounter Care Teams Control Electrician Relationship Specialty Start Date End Date Kylie Reynolds MD NO ADDRESS ON FILE PCP - General 01/23/01 02/25/16 documented as of this encounter
--- OUTSIDE RECORDS SUMMARY | 2024-10-25 16:19 | XMS_ITS | Encounter Summary ---
Author Organization [facility] Address [address] [place] [address] Care Team Providers Care Biophysics Scientist Name Role Phone Kylie Reynolds MD Primary Care Provider Unavailab le Encounter Details Date Type Department Care Team (Late st Contact Info) Description 06/26/2003 Outpatient Historical [facility] [address] [place] [address] Kylie Reynolds MD NO ADDRESS ON FILE Social History Tobacco Use Types Packs/Day Years Used Date Smoking Tobacco: Never Assessed Comments Unknown Sex and Gender Information Value Date Recorded Sex Assigned at Not on file Legal Sex Female 5:26 AM QUALITY CONTROL CHEMIST Gender Identity Not on file Sexual Orientation Not on file documented as of this encounter Plan of Treatment Not on file documented as of this encounter Visit Diagnoses Not on filedocumented in this encounter Care Teams Biophysics Scientist Relationship Specialty Start Date End Date Kylie Reynolds MD NO ADDRESS ON FILE PCP - General 01/23/01 02/25/16 documented as of this encounter
--- OUTSIDE RECORDS SUMMARY | 2024-10-25 16:19 | XMS_ITS | Encounter Summary ---
Author Organization [facility] Address [address] [place] [address] Care Team Providers Care Body Former Name Role Phone Kylie Reynolds MD Primary Care Provider Unavailab le Encounter Details Date Type Department Care Team (Late st Contact Info) Description 11/02/2000 Outpatient Historical [facility] Medicine [address] [place] [address] Kylie Reynolds MD NO ADDRESS ON FILE Social History Tobacco Use Types Packs/Day Years Used Date Smoking Tobacco: Never Assessed Comments Unknown Sex and Gender Information Value Date Recorded Sex Assigned at Not on file Legal Sex Female 5:26 AM HOTEL SERVICE MANAGER Gender Identity Not on file Sexual Orientation Not on file documented as of this encounter Plan of Treatment Not on file documented as of this encounter Visit Diagnoses Not on filedocumented in this encounter Care Teams Body Former Relationship Specialty Start Date End Date Kylie Reynolds MD NO ADDRESS ON FILE PCP - General 01/23/01 02/25/16 documented as of this encounter
--- OUTSIDE RECORDS SUMMARY | 2024-10-25 16:19 | XMS_ITS | Encounter Summary ---
Author Organization [facility] Address [address] [place] [address] Care Team Providers Care Produce Team Member Name Role Phone Kylie Reynolds MD Primary Care Provider Unavailab le Encounter Details Date Type Department Care Team (Late st Contact Info) Description 02/17/2003 Outpatient Historical [facility] Medicine [address] [place] [address] Kylie Reynolds MD NO ADDRESS ON FILE Social History Tobacco Use Types Packs/Day Years Used Date Smoking Tobacco: Never Assessed Comments Unknown Sex and Gender Information Value Date Recorded Sex Assigned at Not on file Legal Sex Female 5:26 AM SCIENTIFIC EDITOR Gender Identity Not on file Sexual Orientation Not on file documented as of this encounter Plan of Treatment Not on file documented as of this encounter Visit Diagnoses Not on filedocumented in this encounter Care Teams Produce Team Member Relationship Specialty Start Date End Date Kylie Reynolds MD NO ADDRESS ON FILE PCP - General 01/23/01 02/25/16 documented as of this encounter
--- OUTSIDE RECORDS SUMMARY | 2024-10-25 16:19 | XMS_ITS | Encounter Summary ---
Author Organization [employer] Address [address] [place] [address] Care Team Providers Care Grab Driver Name Role Phone Kylie Reynolds MD [...] on file Legal Sex Female 5:26 AM CLAIMS DIRECTOR Gender Identity Not on file Sexual Orientation Not on file documented as of this encounter Plan of Treatment Not on file documented as of this encounter Visit Diagnoses Diagnosis Other malaise and fatigue- Primary documented in this encounter Care Teams Grab Driver Relationship Specialty Start Date End Date Kylie Reynolds MD NO ADDRESS ON FILE PCP - General 01/23/01 02/25/16 documented as of this encounter
--- OUTSIDE RECORDS SUMMARY | 2024-10-25 16:19 | XMS_ITS | Encounter Summary ---
Author Organization [facility] Address [address] [facility] [place] [address] Phone Care Team Providers Care Supervisor Stripping Name Role Phone Ramin Angeles DO Unavailable [phone] Jeniffer Burciaga MD Primary Care Provider [phone] Lizz Mccauley RN Unavailable Unavailable Lincoln Simpson DPM Unavailable Unavailable Provider, None Primary Care Provider Unavailabl e Martín Cuenca MD Primary Care Provider [phone] Bairon Ryan MD Unavailable [phone] Larisa Eisenberg RN CIRCULATING, BEAMING INSPECTOR Unavailable + [phone] Cynthia Woody RN CIRCULATING, BEAMING INSPECTOR Primary Care Provider + Elio Monae MD Unavailable Gorge Morel MD Primary Care Provider + [phone] Reason for Visit * Reason Comments Medication Refill Encounter Details Date Type Department Care Team (Late st Contact Info) Description 01/17/2021 Refill [facility] [address] [place] [address] Jeniffer Burciaga MD [address] [place] [address] Medication Refill Social History Tobacco Use Types [...] st Contact Info) Description 11/13/2024 8:00 AM CONSULTING PSYCHOLOGIST Procedure Visit [facility] [address] [place] [address] Davion Alicea MD [address] [address] 12/18/2024 10:30 AM CDT Office Visit [facility] - Family Medicine [facility] [address] [place] [address] Cynthia Woody, RN CIRCULATING, BEAMING INSPECTOR [address] [place] [address] 03/10/2025 1:00 PM CDT Office Visit [facility] On[facility] Services [address] [place] [address] Gilmar Bond MD [address] [place] [address] Discharge Disposition: Discharged to home or Selfcare documented as of this encounter Visit Diagnoses Not on filedocumented in this encounter Additional Health Concerns Assessment Noted Time PHQ-9 Depression Total Score: 0 04/12/20 18 2:00 PM CDT documented as of this encounter Care Teams Supervisor Stripping Relationship Specialty Start Date End Date Jeniffer Burciaga MD [address] [place] [address] PCP - General Family Medicine 02/10/16 09/06/23 Provider, [facility] PCP - General 09/07/23 10/05/23 Martín Cuenca MD [address] [place] [address] PCP - General Family Medicine 10/06/23 02/05/24 Cynthia Woody, RN CIRCULATING, BEAMING INSPECTOR [address] [place] [address] PCP - General Advanced Practice Nurse 02/07/24 Gorge Morel MD [address] [place] [address] PCP - General Infectious Disease 10/15/24 Ramin Angeles DO Consulting Physician Gastroenterology 01/14/16 08/20/24 Lizz Mccauley RN [place] Can Cleaner 12/15/21 08/07/22 Lincoln Simpson DPM Podiatry 03/30/22 Bairon Ryan MD [address] [place] [address] Consulting Physician Neurology 09/07/23 Larisa Eisenberg APRN, BEAMING INSPECTOR [address] [facility] [address] [place] [address] Nurse Practitioner Advanced Practice Nurse 01/26/24 Elio Monae MD [address] [place] [address] Consulting Physician Pulmonary Disease 06/05/24 documented as of this encounter
--- OUTSIDE RECORDS SUMMARY | 2024-10-25 16:19 | XMS_ITS | Encounter Summary ---
Author Organization [facility] Address [address] [place] [address] Care Team Providers Care Bottle Line Worker Name Role Phone Kylie Reynolds MD Primary Care Provider Unavail le Encounter Details Date Type Department Care Team (Late st Contact Info) Description 09/28/2001 Outpatient Historical [facility] Family Medicine [place] [id number] [place] [address] [place] [address] [facility] [address] [place] [address] Social History Tobacco Use Types Packs/Day Years Used Date Smoking Tobacco: Never Assessed Comments Unknown Sex and Gender Information Value Date Recorded Sex Assigned at Not on file Legal Sex Female 5:26 AM SET OFF PRESS OPERATOR Gender Identity Not on file Sexual Orientation Not on file documented as of this encounter Plan of Treatment Not on file documented as of this encounter Visit Diagnoses Not on filedocumented in this encounter Care Teams Bottle Line Worker Relationship Specialty Start Date End Date Kylie Reynolds MD NO ADDRESS ON FILE PCP - General 01/23/01 02/25/16 documented as of this encounter
--- OUTSIDE RECORDS SUMMARY | 2024-10-25 16:19 | XMS_ITS | Encounter Summary ---
Author Organization [facility] Address [address] [facility] [place] [address] Phone Care Team Providers Care Orthophotography Technician Name Role Phone Ramin Angeles DO Unavailable [phone] Jeniffer Burciaga MD Primary Care Provider [phone] Lizz Mccauley RN Unavailable Unavailable Lincoln Simpson DPM Unavailable Unavailable Provider, None Primary Care Provider Unavailabl e Martín Cuenca MD Primary Care Provider [phone] Bairon Ryan MD Unavailable [phone] Larisa Eisenberg MANAGER BOOKS, JAPANESE INTERPRETER Unavailable + [phone] Cynthia Woody MANAGER BOOKS, JAPANESE INTERPRETER Primary Care Provider + Elio Monae MD Unavailable Gorge Morel MD Primary Care Provider + [phone] Reason for Visit * Reason Onset Date Comments Cough 03/26/2021 Encounter Details Date Type Department Care Team (Late st Contact Info) Description 03/26/2021 Nurse Triage [facility] [address] [place] [address] Jeniffer Burciaga MD [address] [place] [address] Cough Social History Tobacco Use Types Packs/Day [...] Zpack to be prescribed and sent to [facility] in [place]. Pain (0-10): sore throat Temp: afebrile Other [...] of control. [email or web address]. Thank you so much. documented in this encounter Plan of Treatment Upcoming Encounters Date Type Department Care Team (Late st Contact Info) Description 11/13/2024 8:00 AM PLANT PROTECTION GUARD Procedure [facility] [address] [place] [address] Davion Alicea MD [address], [address] [address] 12/18/2024 10:30 AM CDT Office Visit [facility] - Family [facility] [address] [place] [address] Cynthia Woody, MANAGER BOOKS, JAPANESE INTERPRETER [address] [place] [address] 03/10/2025 1:00 PM CDT [facility] [address] [place] [address] Gilmar Bond MD [address] [place] [address] Discharge Disposition: Discharged to home or Selfcare documented as of this encounter Visit Diagnoses Not on filedocumented in this encounter Additional Health Concerns Assessment Noted Time PHQ-9 Depression Total Score: 0 04/12/20 18 2:00 PM CDT documented as of this encounter Care Teams Orthophotography Technician Relationship Specialty Start Date End Date Jeniffer Burciaga MD [address] [place] [address] PCP - General Family Medicine 02/10/16 09/06/23 Provider, [facility] PCP - General 09/07/23 10/05/23 Martín Cuenca MD [address] [place] [address] PCP - General Family Medicine 10/06/23 02/05/24 Cynthia Woody, MANAGER BOOKS, JAPANESE INTERPRETER [address] [place] [address] PCP - General Advanced Practice Nurse 02/07/24 Gorge Morel MD [address] [place] [address] PCP - General Infectious Disease 10/15/24 Ramin Angeles DO Consulting Physician Gastroenterology 01/14/16 08/20/24 Lizz Mccauley RN [place] Vision Mixer 12/15/21 08/07/22 Lincoln Simpson DPM Podiatry 03/30/22 Bairon Ryan MD [address] [place] [address] Consulting Physician Neurology 09/07/23 Larisa Eisenberg APRN, JAPANESE INTERPRETER [facility] [address] [place] [address] Nurse Practitioner Advanced Practice Nurse 01/26/24 Elio Monae MD [address] [place] [address] Consulting Physician Pulmonary Disease 06/05/24 documented as of this encounter
--- OUTSIDE RECORDS SUMMARY | 2024-10-25 16:19 | XMS_ITS | Encounter Summary ---
Author Organization [facility] Address [address] [place] [address] Care Team Providers Care Garbage Pick Up Man Name Role Phone Kylie Reynolds MD Primary Care Provider Unavailab le Encounter Details Date Type Department Care Team (Late st Contact Info) Description 06/17/2004 Outpatient Historical [facility] Medicine [address] [place] [address] Kylie Reynolds MD NO ADDRESS ON FILE Social History Tobacco Use Types Packs/Day Years Used Date Smoking Tobacco: Never Assessed Comments Unknown Sex and Gender Information Value Date Recorded Sex Assigned at Not on file Legal Sex Female 5:26 AM MELTER SUPERVISOR ELECTRIC ARC FURNACE Gender Identity Not on file Sexual Orientation Not on file documented as of this encounter Plan of Treatment Not on file documented as of this encounter Visit Diagnoses Not on filedocumented in this encounter Care Teams Garbage Pick Up Man Relationship Specialty Start Date End Date Kylie Reynolds MD NO ADDRESS ON FILE PCP - General 01/23/01 02/25/16 documented as of this encounter
--- OUTSIDE RECORDS SUMMARY | 2024-10-25 16:19 | XMS_ITS | Encounter Summary ---
Author Organization [facility] Address [address] [place] [address] Care Team Providers Care Assembly Loader Name Role Phone Martín Cuenca MD Primary Care Provider [phone] Reason for Visit * Reason Comments Follow-up Pain Encounter Details Date Type Department Care Team (Latest Contact Info) Description 10/25/2024 10:07 AM BILLING CONTROL CLERK Hospital Encounter [facility] [address] [facility] [address], [address]. [address] [place] [address] Corazon Thomas NP 1 [place] [address] correction (current) use of opiate analgesic (Primary Dx); Lumbar facet arthropathy; Cervicalgia Social History Tobacco Use Types Packs/Day Years [...] on file Legal Sex Female 5:29 PM BILLING CONTROL CLERK Gender Identity Female 10/19/2020 7:50 AM BILLING CONTROL CLERK Sexual Orientation Straight 10/19/2020 7: 50 AM BILLING CONTROL CLERK Occupation Industry Job Start Date Job End Date Retired Not on file Not on file Not on file documented as of this encounter Last Filed Vital Signs Vital Sign Reading Time Taken Comments Blood Pressure 120/70 10/25/2024 10:45 AM BILLING CONTROL CLERK Pulse 64 10/25/2024 10:45 AM BILLING CONTROL CLERK Temperature - - Respiratory Rate 16 10/25/2024 10:45 AM BILLING CONTROL CLERK Oxygen Saturation 98% 10/25/2024 10:45 AM BILLING CONTROL CLERK Inhaled Oxygen Concentration - - Weight - - Height - - Body Mass Index - - documented in this encounter Progress Notes * Corazon Thomas NP - 10/25/2024 10:30 AM CST Treatment Summary Brief Assessment and Plan: Multifactorial axial low back and cervical pain, managing conservativelywith low-dose opioids; not currently interested in interventions The following imaging/procedural orders were placed during this visit: No orders of the defined types were placed in this encounter. Medications: Lignite 10-325 Q day PRN (not refilled today) , Movantik 25 mg Qday Follow up: 3 months Today's Date: 10/25/2024 Patient Name: Rina Gonsales Age: 74 y.o. [facility] Return Visit Subjective Rina Gonsales returns today for ongoing treatment regarding her history of axial low back and buttock pain. Recall PMH is notable for anxiety, depression, and bipolar disorder. Primary purpose of today's visit: Medication visit Results of procedure: None Reports that today, pain is Pain Score: 5 - Moderate pain/10 and is same as the pain described previously, see below for pain questionnaire answers. Description: Pain Descriptors: Sharp Location: Pain Location: Back (Cervical) (neck and low back pain) Aggravating factors: Aggravating Factors: Other (Comment) (certain movements, touching her head) Alleviating factors: rest, heat, and taking medications Radiation?: Pain Radiating Towards: right side of occiput Pain distribution is the same in the lumbar spine. Continues to endorse cervical neck pain which radiates into the right occiput. She denies any numbness, tingling were weakness in her arms or hands.No red flag symptoms such as unexpected bowel/bladder incontinence, saddle anesthesia, fevers, chills, or unintentional weight loss. Regarding current medication regimen, patient reports pain is greatly relieved (ie >75%) with current regimen. Current prescription(s) via this clinic: Lignite 10-325 QDay PRN Changes made during last visit? Yes - decrease to once daily prn from BID PRN Side effects? No OME (if applicable): 20 Last UDS: 01/2024 THERAPIES TO DATE INTERVENTIONS (this clinic only): RELEVANT SURGERIES: L5-S1 ILESI: 01/2022: ORIF right elbow Current medications: [x] Tylenol [] Gabapentin [] Nortriptyline [] Tramadol [] Oxycontin [] Flexeril [] Lidocaine patch [] -Triptans [] Aspirin [] Lyrica [] Amitriptyline [] Tylenol 3 [] MSContin [] Tizanidine [] OTC topicals [] Propranolol [] Aleve [] Cymbalta [] Topiramate [] Codeine [] Dilaudid [] Baclofen [] Capsaicin [] Botox [] Ibuprofen [] Valproate [] Oxycodone [] Methadone [] Soma [] Fioricet [] Meloxicam [] Carbamazepine [x] Lignite [] Fentanyl [] Metaxalone [] Diclofenac [] Naltrexone [] Percocet [] Buprenorphine [] Methocarbamol [] Celebrex [] Morphine [] Nucynta [] Soma Other: Previous medication trials include Flexeril CONSERVATIVE MEASURES [x] Physical Therapy [x] Chiropractor [x] Home Exercise [] Yoga/stretching [] TENS Unit [x] OTC medications (see above) [x] Heat/ice [] Other Pt has tried the conservative measures indicated above for at least 6 months with inadequate relief. Rina Gonsales's history was reviewed and updated as appropriate including past medical history, past surgical history, social history, family history, allergies, and home medication list. A review ofsystems was completed, reviewed, and scanned into the chart. AYESHA, PEG Scale, and Current Opioid Misuse Measure (COMM) as follows: Modified Oswestry Low Back Pain Score: 21 Objective Vitals: 10/25/24 1045 BP: 120/70 Pulse: 64 Resp: 16 SpO2: 98% PHYSICAL EXAM General: Pleasant, no acute distress, normal appearance, grooming and nutrition Skin: No rashes or lesions on exposed skin Heart/Lungs: non labored breathing Neuro/MSK: Cranial nerves intact No gross deformities on inspection Palpation: palpable taut bands within right cervical paraspinal muscles, reproduction of pain and palpable taut bands within right trapezius muscles, reproduction of pain Range of motion: grossly normal ROM (extension, flexion, rotation, lateral bending) Sensation: grossly normal to light touch in BL upper extremities DIAGNOSTICS I have reviewed all relevant imaging studies and explained pertinent findings to the patient. 01/2023: XR lumbar spine Moderate to severe multilevel spondylosis of the lumbar spine as above. Again seen is moderate depression of the superior endplate of L1 and mild depression of the anterior superior endplate of T12 unchanged. Findings are indicative of sequela of older injuries. 06/2022: MRI lumbar spine T11-12: No diffuse disc bulge or focal herniation. Mild bilateral facet arthropathy. No spinal canal stenosis. No neural foraminal stenosis. T12-L1: Minimal annular disc bulge and retropulsion of the superior aspect of the posterior cortical margin of L1. Mild bilateral facet arthropathy. No spinal canal stenosis. No neural foraminal stenosis. L1-2: Slightly overhanging posterior cortical margin with mild posterior osteophytosis eccentric to the left and annular disc bulge of the residual intervertebral disc. Mild bilateral hypertrophic facet arthropathy, noting slight fluid in the facet joints suggestive of facet synovitis as well as a 1.1 x 0.8 x 0.4 cm (CC by AP by TV) right synovial facet cyst directed into the right lateral recess and right lateral thecal sac. Ligamentum flavum thickening. Compromise of the right lateral recesses. No spinal canal stenosis. Moderate right neural foraminal stenosis. L2-3: Slight uncovering of the intervertebral disc with annular disc bulge. Marked left and moderate right hypertrophic facet arthropathy, noting slight fluid in the facet joints suggestive of facet synovitis. Ligamentum flavum thickening. Compromise of left lateral recesses, noting combination of disc and arthropathic facet slight contact with the descending left L3 nerve root. Mild left eccentric spinal canal stenosis. Severe left and mild right neural foraminal stenosis, noting combination of inferior pedicular surface, posterior cortical margin/disc, and arthropathic facet contact with the exiting left and arthropathic facet contact with exiting right L2 nerve root. L3-4: Mild posterior osteophytosis eccentric to the right with annular disc bulge. Moderate marked left and moderate right hypertrophic facet arthropathy, noting slight fluid in the right facet joint suggestive of facet synovitis. Ligamentum flavum thickening. Moderate spinal canal stenosis. Moderate left and mild inferior right neural foraminal stenosis, noting combination of inferior pedicular surface, disc, and arthropathic facet contact with exiting left and slight disc contact with exiting right L3 nerve roots. L4-5: Annular disc bulge with small central disc protrusion. Marked bilateral hypertrophic facet arthropathy, noting slight fluid in the facet joints suggestive of facet synovitis. Ligamentum flavum thickening. Compromise of the bilateral lateral recesses. Severe spinal canal stenosis. Moderate severe right and mild left neural foraminal stenosis, noting combination of disc and arthropathic facet variable contact with the exiting bilateral L4 nerve roots. L5-S1: Uncovering of the intervertebral disc with small shallow central disc protrusion. Marked bilateral hypertrophic facet arthropathy. Ligamentum flavum thickening. Compromise of the right and slight compromise of left lateral recesses, noting combination of disc and arthropathic facet contact with the descending right S1 nerve root. Moderate spinal canal stenosis. Severe bilateral, right greater than left, neural foraminal stenosis, noting combination of inferior pedicular surface, disc, and arthropathic facet variable contact with the exiting bilateral L5 nerve roots. Assessment/Plan Lumbar spondylosis with radiculopathy Lumbar degenerative disc disease with radiculopathy Myalgia, other site Long-term use of opioid Opioid induced constipation Pleasure to see Rina in clinic today for for medication refill , continues to report 90-100% pain relief on current regimen. Currently not taking the prescription daily, saving only for her bad daystherefore she has an excess left from her previous prescriptions and has not filled since August.We will adjust her medication to reflect her current usage at Lignite 10-325 once daily PRN. No refill given today given her excess quantity, but she can call to let us know and I am happy to send prescription in at that time. Corazon Thomas NP Interventional Pain Management [facility] PLAN JUSTIFICATION At this time, our clinic will (or will continue to) provide an opioid prescription for treatment ofthis patient's pain. This is a condition that A) has failed to respond to non-opioid alternatives and B) necessitates treatment for longer than 7 days. Both [place] PDMP and pain contract reviewed and appropriate. There are no concerns for aberrant use, misuse, or diversion and the opioid therapy continues to provide functional benefit. We reviewedtreatment goals (ie maximizing function, improving quality of life) and that medication therapy should always be viewed as a supplement to regular exercise/physical therapy/weight loss. We reviewed side effects of chronic opioid therapy including (but not limited to): drowsiness, tolerance, addiction, hyperalgesia, endocrine dysfunction, immune-suppression, constipation, itching, nausea/vomiting, respiratory depression, sexual dysfunction, and . We also reviewed that opioids may not be combined with benzodiazepines, alcohol, muscle relaxants (specifically baclofen, soma, robaxin, and diazepam), or other depressant medications given risk for excessive sedation and respiratory depression. Concomitant use of these substances will result in discontinuation of prescription. UDS screens will be performed to assess for medication, metabolites, other medications, and illicit substances. Patient is aware and expressed understanding. Prescription provided: Lignite 10-325 QDay PRN Duration of prescription: none today - see above Urine sample obtained today: No [facility] Best Practice documentation Blood pressure in clinic today was BP: 120/70. This classifies as a normal BP reading (SBP<120 and DBP<80). No follow up required. Patient is not a tobacco user. DRAIN TILER: Psychiatric Social Worker Supervisor completed with Fluency Direct, dictation proofread to best of my ability. ING CONTROL CLERK documented in this encounter Nursing Notes * Angelica Liang RN - 10/25/2024 10:30 AM CST Level 2 Escorted patient to exam room. Obtained vital signs. Reviewed patient's allergies and current medications. Obtained and verified patient's simple medical/surgical history. Confirmed the reason for visit with the patient. Obtained the following screening assessments: [x] Modified Oswestry Low Back Pain Questionnaire [] PMC Intake Questionnaire [] PMC Follow up Questionnaire [] Fall Risk Assessment (Reba Chaney Steadi) [] Depression/Anxiety Assessment (GAD7, PHQ-9, Jones Suicide, Romano Depression) [] Disability Scale [] CAGE [x] SOAPP-R/COMM Additional tasks included: [] Random medication adherence check (pill verification by two nurses) [] Work/school note written [] Pended CT/MRI/MRA order [] Pain assessment for multiple sites [x] PEG Vital Signs Pulse: 64 Resp: 16 BP: 120/70 SpO2: 98 % Post-visit transport confirmed with the patient. Total time spent for patient care, education, and care coordination was approximately 11-20 minutes. ING CONTROL CLERK documented in this encounter Plan of Treatment Not on file documented as of this encounter Goals Goal Patient Goal Type Associated Problems Recent Progress Patient-Stated? Author -Pain Behavioral Health On track( 024 10:45 AM BILLING CONTROL CLERK) Miles Majano, RN Note: Walking, sitting, sleeping, moving about with minimal to no pain. documented as of this encounter Visit Diagnoses Diagnosis correction (current) use of opiate analgesic- Primary Lumbar facet arthropathy Spondylosis of unspecified site without mention of myelopathy Cervicalgia documented in this encounter Care Teams Assembly Loader Relationship Specialty Start Date End Date Martín Cuenca MD [address] [place] [id number] PCP - General Family Medicine 12/04/23 documented as of this encounter
--- OUTSIDE RECORDS SUMMARY | 2024-10-25 16:19 | XMS_ITS | Encounter Summary ---
Author Organization [facility] Address [address] [place] [address] Care Team Providers Care Catering Convention Services Manager Name Role Phone Kylie Reynolds MD Primary Care Provider Unavail le Encounter Details Date Type Department Care Team (Late st Contact Info) Description 12/25/2002 Outpatient Historical [facility] Family Medicine [place] [id number] [place] [id number] [place] [address] [facility] [address] [place] [address] Social History Tobacco Use Types Packs/Day Years Used Date Smoking Tobacco: Never Assessed Comments Unknown Sex and Gender Information Value Date Recorded Sex Assigned at Not on file Legal Sex Female 5:26 AM SUBASSEMBLY ASSEMBLER Gender Identity Not on file Sexual Orientation Not on file documented as of this encounter Plan of Treatment Not on file documented as of this encounter Visit Diagnoses Not on filedocumented in this encounter Care Teams Catering Convention Services Manager Relationship Specialty Start Date End Date Kylie Reynolds MD NO ADDRESS ON FILE PCP - General 01/23/01 02/25/16 documented as of this encounter
--- OUTSIDE RECORDS SUMMARY | 2024-10-25 16:19 | XMS_ITS | Encounter Summary ---
Author Organization [facility] Address [address] [place] [address] Care Team Providers Care Accountant Certified Public Name Role Phone Kylie Reynolds MD Primary Care Provider Unavailab le Encounter Details Date Type Department Care Team (Late st Contact Info) Description 01/17/2001 Outpatient Historical [facility] Medicine [address] [place] [address] Kylie Reynolds MD NO ADDRESS ON FILE Social History Tobacco Use Types Packs/Day Years Used Date Smoking Tobacco: Never Assessed Comments Unknown Sex and Gender Information Value Date Recorded Sex Assigned at Not on file Legal Sex Female 5:26 AM MICA PLATE LAYER Gender Identity Not on file Sexual Orientation Not on file documented as of this encounter Plan of Treatment Not on file documented as of this encounter Visit Diagnoses Not on filedocumented in this encounter Care Teams Accountant Certified Public Relationship Specialty Start Date End Date Kylie Reynolds MD NO ADDRESS ON FILE PCP - General 01/23/01 02/25/16 documented as of this encounter
--- OUTSIDE RECORDS SUMMARY | 2024-10-25 16:19 | XMS_ITS | Encounter Summary ---
Author Organization [employer] Address [address] [place] [address] Care Team Providers Care Print And Pattern Designer Name Role Phone Kylie Reynolds MD Primary Care Provider Brennan hagan Encounter Details Date Type Department Care Team (Latest Contact Info) Description 12/30/2003 Outpatient Historical [facility] [address], Ronnie Yi MD NO ADDRESS ON FILE IRON DEFIC ANEMIA NOS (Primary Dx) Social History Tobacco Use Types Packs/Day Years Used Date Smoking Tobacco: Never Assessed Comments Unknown Sex and Gender Information Value Date Recorded Sex Assigned at Not on file Legal Sex Female 5:26 AM WATCH BAND ASSEMBLER Gender Identity Not on file Sexual Orientation Not on file documented as of this encounter Plan of Treatment Not on file documented as of this encounter Visit Diagnoses Diagnosis Iron deficiency anemia, unspecified- Primary documented in this encounter Care Teams Print And Pattern Designer Relationship Specialty Start Date End Date Kylie Reynolds MD NO ADDRESS ON FILE PCP - General 01/23/01 02/25/16 documented as of this encounter
--- OUTSIDE RECORDS SUMMARY | 2024-10-25 16:19 | XMS_ITS | Encounter Summary ---
Author Organization [employer] Address [address] [place] [address] Care Team Providers Care Prop And Effects Designer Name Role Phone Kylie Reynolds MD Primary Care Provider Brennan hagan Encounter Details Date Type Department Care Team (Latest Contact Info) Description 12/04/2003 Outpatient Historical [facility] Linda Lopez IRON DEF ANEMIA DIETARY (Primary Dx) Social History Tobacco Use Types Packs/Day Years Used Date Smoking Tobacco: Never Assessed Comments Unknown Sex and Gender Information Value Date Recorded Sex Assigned at Not on file Legal Sex Female 5:26 AM CONTINUITY EDITOR Gender Identity Not on file Sexual Orientation Not on file documented as of this encounter Plan of Treatment Not on file documented as of this encounter Visit Diagnoses Diagnosis Iron deficiency anemia secondary to inadequate dietary iron intake- Primary documented in this encounter Care Teams Prop And Effects Designer Relationship Specialty Start Date End Date Kylie Reynolds MD NO ADDRESS ON FILE PCP - General 01/23/01 02/25/16 documented as of this encounter
--- OUTSIDE RECORDS SUMMARY | 2024-10-25 16:19 | XMS_ITS | Encounter Summary ---
Author Organization [facility] Address [address] [place] [address] Care Team Providers Care Site Safety Coordinator Name Role Phone Jeniffer Burciaga MD Primary Care Provider Martín Cuenca MD Primary Care Provider [phone] Reason for Visit * Reason Onset Date Comments Cancel 09/07/202309/12 appt. Kay ent states she doesn't need the appointment. Encounter Details Date Type Department Care Team (Late st Contact Info) Description 09/07/2023 Telephone [facility] Physical [place] [address] Jose Smiley, MARICRUZ Cancel (09/12 appt. Patient [...] on file Legal Sex Female 5:29 PM PROJECT INTERN Gender Identity Female 10/19/2020 7:50 AM PROJECT INTERN Sexual Orientation Straight 10/19/2020 7: 50 AM PROJECT INTERN Occupation Industry Job Start Date Job End Date Retired Not on file Not on file Not on file documented as of this encounter Plan of Treatment Not on file documented as of this encounter Goals Goal Patient Goal Type Associated Problems Recent Progress Patient-Stated? Author BH-Pain Behavioral Health On track( 024 10:45 AM PROJECT INTERN) Miles Majano, RN Note: Walking, sitting, sleeping, moving about with minimal to no pain. documented as of this encounter Visit Diagnoses Not on filedocumented in this encounter Care Teams Site Safety Coordinator Relationship Specialty Start Date End Date Jeniffer Burciaga MD PCP - General 12/06/16 12/03/23 Martín Cuenca MD [address] [place] [address] PCP - General Family Medicine 12/04/23 documented as of this encounter
--- OUTSIDE RECORDS SUMMARY | 2024-10-25 16:19 | XMS_ITS | Encounter Summary ---
Author Organization [facility] Address [address] [place] [address] Care Team Providers Care Emergency Medical Services Coordinator Name Role Phone Kylie Reynolds MD Primary Care Provider Unavailab le Encounter Details Date Type Department Care Team (Late st Contact Info) Description 01/28/[address] [facility] Medicine [address] [place] [address] Kylie Reynolds MD NO ADDRESS ON FILE Social History Tobacco Use Types Packs/Day Years Used Date Smoking Tobacco: Never Assessed Comments Unknown Sex and Gender Information Value Date Recorded Sex Assigned at Not on file Legal Sex Female 5:26 AM MINK FARMER Gender Identity Not on file Sexual Orientation Not on file documented as of this encounter Plan of Treatment Not on file documented as of this encounter Visit Diagnoses Not on filedocumented in this encounter Care Teams Emergency Medical Services Coordinator Relationship Specialty Start Date End Date Kylie Reynolds MD NO ADDRESS ON FILE PCP - General 01/23/01 02/25/16 documented as of this encounter
--- OUTSIDE RECORDS SUMMARY | 2024-10-25 16:19 | XMS_ITS | Encounter Summary ---
Author Organization [employer] Address [address] [place] [address] Care Team Providers Care Help Desk Administrator Name Role Phone Kylie Reynolds MD Primary Care Provider Brennan hagan Encounter Details Date Type Department Care Team (Late st Contact Info) Description 03/02/2004 Outpatient Historical [facility] Ronine Bañuelos MD [facility] [place] [address] Er, Authorized P NO ADDRESS ON FILE BIPOL AFFECT, MANIC-UNSPEC (CMS/HCC) (Primary Dx) Social History Tobacco Use Types Packs/Day Years Used Date Smoking Tobacco: Never Assessed Comments Unknown Sex and Gender Information Value Date Recorded Sex Assigned at Not on file Legal Sex Female 5:26 AM MAILER APPRENTICE Gender Identity Not on file Sexual Orientation Not on file documented as of this encounter Plan of Treatment Not on file documented as of this encounter Visit Diagnoses Diagnosis Bipolar I disorder, most recent episode (or current) manic, unspecified (CMS/HCC)- Primary Bipolar I disorder, most recent episode (or current) manic, unspecified documented in this encounter Care Teams Help Desk Administrator Relationship Specialty Start Date End Date Kylie Reynolds MD NO ADDRESS ON FILE PCP - General 01/23/01 02/25/16 documented as of this encounter
--- OUTSIDE RECORDS SUMMARY | 2024-10-25 16:19 | XMS_ITS | Encounter Summary ---
Author Organization [facility] Address [address] [place] [place] [address] Phone Care Team Providers Care Military Source Operations Specialist Name Role Phone Ramin Angeles DO Unavailable [phone] Lincoln Simpson DPM Unavailable Unavailable Martín Cuenca MD Primary Care Provider [phone] Bairon Ryan MD Unavailable [phone] Larisa Eisenberg BIOFUELS OPERATIONS MANAGER, SUPERINTENDENT OIL WELL SERVICES Unavailable + [phone] Cynthia Woody BIOFUELS OPERATIONS MANAGER, SUPERINTENDENT OIL WELL SERVICES Primary Care Provider + Elio Monae MD Unavailable Gorge Morel MD Primary Care Provider [phone] Reason for Visit * Reason Comments Medication Refill Encounter Details Date Type Department Care Team (Late st Contact Info) Description 02/01/2024 Refill [facility] - Family Medicine [facility] [address] [place] [phone] Martín Cuenca MD [address] [place] [address] Medication Refill Social History Tobacco Use Types Packs/Day Years Used Date Smoking Tobacco: Former Cigarettes 1 22 0 09/18/1969 - 09/18/1991 Smokeless Tobacco: Never Comments:Stopped smoking 30 years ago Alcohol Use Standard Drinks/Week Comments Never 0 (1 standard drink = 0.6 oz pur e alcohol) 1990 stopped [facility] Utilities Answer Date Recorded In [...] often do you attend chur ch or bahai services? Never 09/30/2023 Do you belong to any clubs o r organizations such as lutheran groups, unions, fraternal or athletic groups, or [...] Total Score - Questions 1-9 0 11/18 [facility] of Occupat ional Health - Occupational Stress [...] place to sleep or slept in a custodial (including now)? No 09/30/2023 Education Answer Date [...] 12/29/23 Office Visit Cynthia Woody APRN, NADIRA [facility] 10/06/23 Office Visit Cynthia Woody APRN, NADIR[facility] 05/15/23 Office Visit Jeniffer Burciaga MD [facility] 04/05/23 Office Visit Kylie Chawla, [facility] 03/06/23 Telemedicine Jeniffer Burciaga MD [facility] Showing recent visits within past 365 days and meeting all other requirements Future Appointments Date Type Provider Dept 02/07/24 Appointment Cynthia Woody APRN, NADIRA [facility] [place] 02/07/24 Appointment Cynthia Woody APRN, NADIRA [facility] [place] Showing future appointments within next 90 days and meeting all other requirements documented in this encounter Plan of Treatment Upcoming Encounters Date Type Department Care Team (Late st Contact Info) Description 11/13/2024 8:00 AM DISTRICT SUPERVISOR Procedure Visit [facility] [address] [place] [address] Davion Alicea MD [address] [address] 12/18/2024 10:30 AM CDT [facility] - [place] [address] [place] [address] Cynthia Woody APRN, SUPERINTENDENT OIL WELL SERVICES [address] [place] [address] 03/10/2025 1:00 PM CDT Office Visit [facility] [address] [place] [phone] Gilmar Bond MD [address] [place] [address] Discharge Disposition: Discharged to home or Selfcare documented as of this encounter Visit Diagnoses Diagnosis Rhinitis, unspecified type documented in this encounter Additional Health Concerns Assessment Noted Time PHQ-9 Depression Total Score: 0 04/12/20 18 2:00 PM CDT documented as of this encounter Care Teams Military Source Operations Specialist Relationship Specialty Start Date End Date Martín Cuenca MD [address] [place] [address] PCP - General Family Medicine 10/06/23 02/05/24 Cynthia Woody APRN, NADIRA [address] [place] [address] PCP - General Advanced Practice Nurse 02/07/24 Gorge Morel MD [address] [place] [address] PCP - General Infectious Disease 10/15/24 Ramin Angeles DO Consulting Physician Gastroenterology 01/14/16 08/20/24 Lincoln Simpson DPM Podiatry 03/30/22 Bairon Ryan MD [address] [place] [id number] Consulting Physician Neurology 09/07/23 Larisa Eisenberg APRN, SUPERINTENDENT OIL WELL SERVICES [address] [facility] [address] [address] Nurse Practitioner Advanced Practice Nurse 01/26/24 Elio Monae MD [address] [place] [address] Consulting Physician Pulmonary Disease 06/05/24 documented as of this encounter
--- OUTSIDE RECORDS SUMMARY | 2024-10-25 16:19 | XMS_ITS | Encounter Summary ---
Author Organization [employer] Address [address] [place] [address] Care Team Providers Care Manager Package Name Role Phone Kylie Reynolds MD Primary [...] on file Legal Sex Female 5:26 AM JITNEY DRIVER Gender Identity Not on file Sexual Orientation Not on file documented as of this encounter Plan of Treatment Not on file documented as of this encounter Visit Diagnoses Diagnosis Anemia, unspecified- Primary documented in this encounter Care Teams Manager Package Relationship Specialty Start Date End Date Kylie Reynolds MD NO ADDRESS ON FILE PCP - General 01/23/01 02/25/16 documented as of this encounter
--- OUTSIDE RECORDS SUMMARY | 2024-10-25 16:19 | XMS_ITS | Encounter Summary ---
Author Organization [employer] Address [address] [place] [address] Care Team Providers Care Painter Shipyard Name Role Phone Kylie Reynolds MD Primary [...] on file Legal Sex Female 5:26 AM PHOTO BOOTH OPERATOR Gender Identity Not on file Sexual Orientation Not on file documented as of this encounter Plan of Treatment Not on file documented as of this encounter Visit Diagnoses Diagnosis Other and unspecified ovarian cyst- Primary documented in this encounter Care Teams Painter Shipyard Relationship Specialty Start Date End Date Kylie Reynolds MD NO ADDRESS ON FILE PCP - General 01/23/01 02/25/16 documented as of this encounter
--- OUTSIDE RECORDS SUMMARY | 2024-10-25 16:19 | XMS_ITS | Encounter Summary ---
Author Organization [employer] Address [address] [place] [address] Care Team Providers Care Field Tech Name Role Phone Kylie Reynolds MD Primary Care Provider Unavailab le Encounter Details Date Type Department Care Team (Late st Contact Info) Description 02/02/2001 Outpatient Historical [facility] Dontrell Flor MD [address] [address] Social History Tobacco Use Types Packs/Day Years Used Date Smoking Tobacco: Never Assessed Comments Unknown Sex and Gender Information Value Date Recorded Sex Assigned at Not on file Legal Sex Female 5:26 AM CHIEF RECORDIST Gender Identity Not on file Sexual Orientation Not on file documented as of this encounter Plan of Treatment Not on file documented as of this encounter Visit Diagnoses Not on filedocumented in this encounter Care Teams Field Tech Relationship Specialty Start Date End Date Kylie Reynolds MD NO ADDRESS ON FILE PCP - General 01/23/01 02/25/16 documented as of this encounter
--- OUTSIDE RECORDS SUMMARY | 2024-10-25 16:19 | XMS_ITS | Encounter Summary ---
Author Organization [facility] Address [address] [place] [address] Care Team Providers Care Splicing Machine Operator Automatic Name Role Phone Kylie Reynolds MD Primary Care Provider Unavailab le Encounter Details Date Type Department Care Team (Late st Contact Info) Description 11/06/2003 Outpatient Historical [facility] Medicine [address] [place] [address] Kylie Reynolds MD NO ADDRESS ON FILE Social History Tobacco Use Types Packs/Day Years Used Date Smoking Tobacco: Never Assessed Comments Unknown Sex and Gender Information Value Date Recorded Sex Assigned at Not on file Legal Sex Female 5:26 AM FERN CUTTER Gender Identity Not on file Sexual Orientation Not on file documented as of this encounter Plan of Treatment Not on file documented as of this encounter Visit Diagnoses Not on filedocumented in this encounter Care Teams Splicing Machine Operator Automatic Relationship Specialty Start Date End Date Kylie Reynolds MD NO ADDRESS ON FILE PCP - General 01/23/01 02/25/16 documented as of this encounter
--- OUTSIDE RECORDS SUMMARY | 2024-10-25 16:19 | XMS_ITS | Encounter Summary ---
Author Organization [employer] Address [address] [place] [address] Care Team Providers Care Flavor Extractor Name Role Phone Kylie Reynolds MD Primary [...] on file Legal Sex Female 5:26 AM PRINTING EQUIPMENT MECHANIC Gender Identity Not on file Sexual Orientation Not on file documented as of this encounter Plan of Treatment Not on file documented as of this encounter Visit Diagnoses Diagnosis Anemia, unspecified- Primary documented in this encounter Care Teams Flavor Extractor Relationship Specialty Start Date End Date Kylie Reynolds MD NO ADDRESS ON FILE PCP - General 01/23/01 02/25/16 documented as of this encounter
--- OUTSIDE RECORDS SUMMARY | 2024-10-25 16:19 | XMS_ITS | Encounter Summary ---
Author Organization [facility] Address [address] [place] [address] Care Team Providers Care Life Insurance Specialist Name Role Phone Kylie Reynolds MD Primary Care Provider Unavailab le Encounter Details Date Type Department Care Team (Late st Contact Info) Description 02/04/2005 Outpatient Historical [facility] Medicine [address] [place] [address] Kylie Reynolds MD NO ADDRESS ON FILE Social History Tobacco Use Types Packs/Day Years Used Date Smoking Tobacco: Never Assessed Comments Unknown Sex and Gender Information Value Date Recorded Sex Assigned at Not on file Legal Sex Female 5:26 AM YARD BRAKEMAN Gender Identity Not on file Sexual Orientation Not on file documented as of this encounter Plan of Treatment Not on file documented as of this encounter Visit Diagnoses Not on filedocumented in this encounter Care Teams Life Insurance Specialist Relationship Specialty Start Date End Date Kylie Reynolds MD NO ADDRESS ON FILE PCP - General 01/23/01 02/25/16 documented as of this encounter
--- OUTSIDE RECORDS SUMMARY | 2024-10-25 16:19 | XMS_ITS | Encounter Summary ---
Author Organization [employer] Address [address] [place] [address] Care Team Providers Care Wheat Buyer Name Role Phone Kylie Reynolds MD Primary [...] on file Legal Sex Female 5:26 AM STATE ATTORNEY Gender Identity Not on file Sexual Orientation Not on file documented as of this encounter Plan of Treatment Not on file documented as of this encounter Visit Diagnoses Diagnosis Special screening for malignant neoplasms, colon- Primary documented in this encounter Care Teams Wheat Buyer Relationship Specialty Start Date End Date Kylie Reynolds MD NO ADDRESS ON FILE PCP - General 01/23/01 02/25/16 documented as of this encounter
--- OUTSIDE RECORDS SUMMARY | 2024-10-25 16:19 | XMS_ITS | Encounter Summary ---
Author Organization [facility] Address [address] [place] [address] Care Team Providers Care Solar Resource Assessor Name Role Phone Kylie Reynolds MD Primary Care Provider Unavailab le Encounter Details Date Type Department Care Team (Late st Contact Info) Description 02/17/2003 Outpatient Historical [facility] Medicine [address] [place] [address] Kylie Reynolds MD NO ADDRESS ON FILE Social History Tobacco Use Types Packs/Day Years Used Date Smoking Tobacco: Never Assessed Comments Unknown Sex and Gender Information Value Date Recorded Sex Assigned at Not on file Legal Sex Female 5:26 AM STEAM TRAIN DRIVER Gender Identity Not on file Sexual Orientation Not on file documented as of this encounter Plan of Treatment Not on file documented as of this encounter Visit Diagnoses Not on filedocumented in this encounter Care Teams Solar Resource Assessor Relationship Specialty Start Date End Date Kylie Reynolds MD NO ADDRESS ON FILE PCP - General 01/23/01 02/25/16 documented as of this encounter
--- OUTSIDE RECORDS SUMMARY | 2024-10-25 16:19 | XMS_ITS | Encounter Summary ---
Author Organization [employer] Address [address] [place] [address] Care Team Providers Care Senior Systems Engineer Name Role Phone Kylie Reynolds MD [...] file Legal Sex Female 5:26 AM MANAGER BIOSTATISTICS Gender Identity Not on file Sexual Orientation [...] ORDERABLES Final Resu lt Performing Organization Address [facility] Phone Number INTERFACE SYSTEM Refer to [...] ORDERABLES Final Resu lt Performing Organization Address [facility] Phone Number INTERFACE SYSTEM Refer to [...] ORDERABLES Final Resul t Performing Organization Address [facility] Co de Phone Number INTERFACE SYSTEM Refer [...] ORDERABLES Final Resul t Performing Organization Address [facility] Co de Phone Number INTERFACE SYSTEM Refer to clinic/hospital department documented in this encounter Visit Diagnoses Diagnosis Pure hypercholesterolemia- Primary documented in this encounter Care Teams Senior Systems Engineer Relationship Specialty Start Date End Date Kylie Reynolds MD NO ADDRESS ON FILE PCP - General 01/23/01 02/25/16 documented as of this encounter
--- OUTSIDE RECORDS SUMMARY | 2024-10-25 16:19 | XMS_ITS | Encounter Summary ---
Author Organization [facility] Address [address] [place] [address] Care Team Providers Care Concert Manager Name Role Phone Kylie Reynolds MD Primary Care Provider Unavailab le Encounter Details Date Type Department Care Team (Late st Contact Info) Description 09/07/2000 Outpatient Historical [facility] Medicine [address] [place] [address] Kylie Reynolds MD NO ADDRESS ON FILE Social History Tobacco Use Types Packs/Day Years Used Date Smoking Tobacco: Never Assessed Comments Unknown Sex and Gender Information Value Date Recorded Sex Assigned at Not on file Legal Sex Female 5:26 AM A R SPECIALIST Gender Identity Not on file Sexual Orientation Not on file documented as of this encounter Plan of Treatment Not on file documented as of this encounter Visit Diagnoses Not on filedocumented in this encounter Care Teams Concert Manager Relationship Specialty Start Date End Date Kylie Reynolds MD NO ADDRESS ON FILE PCP - General 01/23/01 02/25/16 documented as of this encounter
--- OUTSIDE RECORDS SUMMARY | 2024-10-25 16:19 | XMS_ITS | Encounter Summary ---
Author Organization [employer] Address [address] [place] [address] Care Team Providers Care Environmental Consultant Name Role Phone Kylie Reynolds MD Primary Care Provider Unavail le Encounter Details Date Type Department Care Team (Latest Contact Info) Description 07/03/2003 Outpatient Historical [facility] Kylie Reynolds MD NO ADDRESS ON FILE ANEMIA NOS (Primary Dx) Social History Tobacco Use Types Packs/Day Years Used Date Smoking Tobacco: Never Assessed Comments Unknown Sex and Gender Information Value Date Recorded Sex Assigned at Not on file Legal Sex Female 5:26 AM INFORMATION ASSURANCE Gender Identity Not on file Sexual Orientation Not on file documented as of this encounter Plan of Treatment Not on file documented as of this encounter Visit Diagnoses Diagnosis Anemia, unspecified- Primary documented in this encounter Care Teams Environmental Consultant Relationship Specialty Start Date End Date Kylie Reynolds MD NO ADDRESS ON FILE PCP - General 01/23/01 02/25/16 documented as of this encounter
--- OUTSIDE RECORDS SUMMARY | 2024-10-25 16:19 | XMS_ITS | Encounter Summary ---
Author Organization [employer] Address [address] [place] [address] Care Team Providers Care Master Coastwise Yacht Name Role Phone Kylie Reynolds MD Primary [...] file Legal Sex Female 5:26 AM BUSINESS OFFICE REPRESENTATIVE Gender Identity Not on file Sexual Orientation Not on file documented as of this encounter Plan of Treatment Not on file documented as of this encounter Visit Diagnoses Diagnosis Iron deficiency anemia, unspecified- Primary documented in this encounter Care Teams Master Coastwise Yacht Relationship Specialty Start Date End Date Kylie Reynolds MD NO ADDRESS ON FILE PCP - General 01/23/01 02/25/16 documented as of this encounter
--- OUTSIDE RECORDS SUMMARY | 2024-10-25 16:19 | XMS_ITS | Encounter Summary ---
Author Organization [employer] Address [address] [place] [address] Care Team Providers Care Software Packaging Engineer Name Role Phone Kylie Reynolds MD [...] on file Legal Sex Female 5:26 AM MACHINE WEDGER Gender Identity Not on file Sexual Orientation Not on file documented as of this encounter Plan of Treatment Not on file documented as of this encounter Procedures Procedure Name Priority Date/Time Associated Diagnosis Comments URINALYSIS W/REFLEX MICROSCOPIC Routine 07/25/2005 9:56 AM MACHINE WEDGER ALT Routine 07/25/2005 9:56 AM MACHINE WEDGER AST Routine 07/25/2005 9:56 AM MACHINE WEDGER LIPID PANEL Routine 07/25/2005 9:56 AM MACHINE WEDGER BASIC METABOLIC PANEL Routine 07/25/2005 9:56 AM MACHINE WEDGER documented in this encounter Results * (ABNORMAL) URINALYSIS (07/25/2005 9:56 AM MACHINE WEDGER) COLOR UA Yellow INTERFACE SYSTEM CLARITY UA [...] Many /HPF INTERFACE SYSTEM 07/25/2005 9:56 AM MACHINE WEDGER Kylie Reynolds MD URINE ORDERABLES Final Result Performing Organization Address [facility] Phone Number INTERFACE SYSTEM Refer to clinic/hospital department * (ABNORMAL) ALT (07/25/2005 9:56 AM MACHINE WEDGER) ALT 33(H) 0 - 31 U/L INTERFACE SYSTEM 07/25/2005 9:56 AM MACHINE WEDGER Kylie Reynolds MD CHEMISTRY ORDERABLES Final Resul t Performing Organization Address [facility] Phone Number INTERFACE SYSTEM Refer to clinic/hospital department * (ABNORMAL) AST (07/25/2005 9:56 AM MACHINE WEDGER) AST 37(H) 12 - 32 U/L INTERFAC E SYSTEM 07/25/2005 9:56 AM MACHINE WEDGER us Kylie Reynolds MD CHEMISTRY ORDERABLES Final Resul t Performing Organization Address [facility] de Phone Number INTERFACE SYSTEM Refer to clinic/hospital department * (ABNORMAL) LIPID PANEL (07/25/2005 9:56 AM MACHINE WEDGER) CHOLESTEROL 177 100 - 199 mg/dL INTERFACE [...] - 129 High >=130 07/25/2005 9:56 AM MACHINE WEDGER Kylie Reynolds MD CHEMISTRY ORDERABLES Final Resul t Performing Organization Address City/[facility] Co de Phone Number INTERFACE SYSTEM Refer to clinic/hospital department * BASIC METABOLIC PANEL (07/25/2005 9:56 AM MACHINE WEDGER) GLUCOSE 97 65 - 109 mg/dL INTERFACE [...] 30 mmol/L INTERFACE SYSTEM 07/25/2005 9:56 AM MACHINE WEDGER us Kylie Reynolds MD CHEMISTRY ORDERABLES Final Resul t Performing Organization Address [facility] Co de Phone Number INTERFACE SYSTEM Refer to clinic/hospital department documented in this encounter Visit Diagnoses Diagnosis Essential hypertension, benign- Primary documented in this encounter Care Teams Software Packaging Engineer Relationship Specialty Start Date End Date Kylie Reynolds MD NO ADDRESS ON FILE PCP - General 01/23/01 02/25/16 documented as of this encounter
--- OUTSIDE RECORDS SUMMARY | 2024-10-25 16:19 | XMS_ITS | Encounter Summary ---
Author Organization [email or web address] Address [address] [place] [address] Care Team Providers Care Solar Photovoltaic Designer Name Role Phone Kylie Reynolds MD [...] on file Legal Sex Female 5:26 AM ACTUARIAL MANAGER Gender Identity Not on file Sexual Orientation Not on file documented as of this encounter Plan of Treatment Not on file documented as of this encounter Visit Diagnoses Diagnosis Anemia, unspecified- Primary documented in this encounter Care Teams Solar Photovoltaic Designer Relationship Specialty Start Date End Date Kylie Reynolds MD NO ADDRESS ON FILE PCP - General 01/23/01 02/25/16 documented as of this encounter
--- OUTSIDE RECORDS SUMMARY | 2024-10-25 16:19 | XMS_ITS | Encounter Summary ---
Author Organization [facility] Address [address] [place] [address] Care Team Providers Care Cottonseed Meat Presser Name Role Phone Kylie Reynolds MD Primary Care Provider Unavailab le Encounter Details Date Type Department Care Team (Late st Contact Info) Description 07/24/2003 Outpatient Historical [facility] Medicine [address] [place] [address] Kylie Reynolds MD NO ADDRESS ON FILE Social History Tobacco Use Types Packs/Day Years Used Date Smoking Tobacco: Never Assessed Comments Unknown Sex and Gender Information Value Date Recorded Sex Assigned at Not on file Legal Sex Female 5:26 AM QUILL PICKING MACHINE OPERATOR Gender Identity Not on file Sexual Orientation Not on file documented as of this encounter Plan of Treatment Not on file documented as of this encounter Visit Diagnoses Not on filedocumented in this encounter Care Teams Cottonseed Meat Presser Relationship Specialty Start Date End Date Kylie Reynolds MD NO ADDRESS ON FILE PCP - General 01/23/01 02/25/16 documented as of this encounter
--- OUTSIDE RECORDS SUMMARY | 2024-10-25 16:19 | XMS_ITS | Encounter Summary ---
Author Organization [facility] Address [address] [place] [address] Care Team Providers Care Riverine Assault Craft Crewman Name Role Phone Kylie Reynolds MD Primary Care Provider Brennan hagan Encounter Details Date Type Department Care Team (Latest Contact Info) Description 01/23/2001 Outpatient Historical [facility] Kylie Galicia MD NO ADDRESS ON FILE Other screening mammogram (Primary Dx) Social History Tobacco Use Types Packs/Day Years Used Date Smoking Tobacco: Never Assessed Comments Unknown Sex and Gender Information Value Date Recorded Sex Assigned at Not on file Legal Sex Female 5:26 AM WEBBING TACKER Gender Identity Not on file Sexual Orientation Not on file documented as of this encounter Plan of Treatment Not on file documented as of this encounter Visit Diagnoses Diagnosis Other screening mammogram- Primary documented in this encounter Care Teams Riverine Assault Craft Crewman Relationship Specialty Start Date End Date Kylie Reynolds MD NO ADDRESS ON FILE PCP - General 01/23/01 02/25/16 documented as of this encounter
--- OUTSIDE RECORDS SUMMARY | 2024-10-25 16:19 | XMS_ITS | Encounter Summary ---
Author Organization [facility] Address [address] [place] [address] Care Team Providers Care Director Of Neurology Name Role Phone Kylie Reynolds MD Primary Care Provider Unavail le Encounter Details Date Type Department Care Team (Late st Contact Info) Description 05/18/2001 Outpatient Historical [facility] Family Medicine [place] [address] [place] [address] [place] [address] [facility] [address] [place] [address] Social History Tobacco Use Types Packs/Day Years Used Date Smoking Tobacco: Never Assessed Comments Unknown Sex and Gender Information Value Date Recorded Sex Assigned at Not on file Legal Sex Female 5:26 AM PORTAL DEVELOPER Gender Identity Not on file Sexual Orientation Not on file documented as of this encounter Plan of Treatment Not on file documented as of this encounter Visit Diagnoses Not on filedocumented in this encounter Care Teams Director Of Neurology Relationship Specialty Start Date End Date Kylie Reynolds MD NO ADDRESS ON FILE PCP - General 01/23/01 02/25/16 documented as of this encounter
--- OUTSIDE RECORDS SUMMARY | 2024-10-25 16:19 | XMS_ITS | Encounter Summary ---
Author Organization [facility] Address [address] [place] [address] Care Team Providers Care Angledozer Operator Name Role Phone Kylie Reynolds MD Primary Care Provider Unavailab le Encounter Details Date Type Department Care Team (Late st Contact Info) Description 05/21/2004 Outpatient Historical [facility] Medicine [address] [place] [address] Kylie Reynolds MD NO ADDRESS ON FILE Social History Tobacco Use Types Packs/Day Years Used Date Smoking Tobacco: Never Assessed Comments Unknown Sex and Gender Information Value Date Recorded Sex Assigned at Not on file Legal Sex Female 5:26 AM CROSS TIE TRAM LOADER Gender Identity Not on file Sexual Orientation Not on file documented as of this encounter Plan of Treatment Not on file documented as of this encounter Visit Diagnoses Not on filedocumented in this encounter Care Teams Angledozer Operator Relationship Specialty Start Date End Date Kylie Reynolds MD NO ADDRESS ON FILE PCP - General 01/23/01 02/25/16 documented as of this encounter
--- OUTSIDE RECORDS SUMMARY | 2024-10-25 16:19 | XMS_ITS | Referral Summary ---
Author Organization [facility] Address [address] [place] [address] Care Team Providers Care Senior Buyer Name Role Phone Martín Cuenca MD Primary Care Provider [phone] Encounters Date Type Department Care Team Description 10/25/2024 10:07 AM TRAUMA SURGEON Hospital Encounter [facility] [address] [facility] [address], 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 (Primary Dx); Lumbar facet arthropathy; Cervicalgia 10/23/2024 Orders Only [facility] Health Information Management [address] [place] [address] Scanning, Provider 09/02/2024 9:45 AM TRAUMA SURGEON Office Visit [facility] [address] [facility] [address] [place] [id number] Christina Wheat MD MCKENNA (obstructive sleep apnea) (Primary Dx); Idiopathic hypersomnia without long sleep time 08/02/2024 8:48 AM TRAUMA SURGEON - 08/02/2024 11:59 PM TRAUMA SURGEON Hospital Encounter [facility] 2 [facility] Kate, Miguel Angel. [address] [place] [address] Corazon Thomas NP Degenerative lumbar spinal stenosis [...] (LaMICtal) 200 mg tablet 2 Active calcium-vits X3-I-H5-minera ls 166.75 mg- 166.75 unit capsule Take by mouth Active qp-3-zez-epa-f hans oil-vit D3 300-1,000-1,00 0 mg-mg-unit capsule [...] or respiratory depression 1 each 3 Active dextroamphetam ine-amphetamin e (ADDERALL) 30 mg tabletIndicati ons:Primary narcolepsy without cataplexy Take 1 tablet (30 mg total) by mouth 2 (two) times a day 60 tablet 5 Active modafiniL (PROVIGIL) 200 mg tabletIndicati ons:Hypersomni a Take 1 tablet (200 mg total) by mouth daily 30 tablet 5 Active naloxegoL (MOVANTIK) 25 mg tablet Take 1 tablet (25 mg total) by mouth daily 30 tablet 2 5 025 Active HYDROcodone-ac etaminophen (NORCO) 10-325 mg per tabletIndicati ons:Pain Take 1 tablet by mouth 2 (two) times a day as needed for pain 60 tablet 4 025 naloxegoL (MOVANTIK) 25 mg tablet Take 1 tablet (25 mg total) by mouth daily 30 tablet 1 4 025 Discontinu ed(Reorder ) modafiniL (PROVIGIL) 200 mg tabletIndicati ons:Hypersomni a [...] sinusitis 01/26/2023 4th nerve palsy, 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 skilled nursing (current) use of opiate analgesic 02/16 Acute pain due to trauma 01/26/2022 Closed fracture of left olecranon process 2021 Overview (01/25/2022): Added automatically from request for surgery [id number] Closed head injury 01/25/2022 Closed head injury, [...] (10/04/2021): Added automatically from request for surgery [id number] Trigger ring finger of right hand 11/07/2019 ADD (attention deficit disorder) 02/10/2016 Bipolar disorder, in full re mission, most recent episode mixed ([facility]) 02/10/2016 Dyslipidemia 02/10/2016 Hypersomnia with sleep apnea [...] Influenza, Trivalent, Preser vative Free, Intramuscular 06/01/2020,10/10/2019,07/17/2016 Influenza, Unspecified 06/19/2023,2022,06/06/2023,06/01 Pneumococcal Conjugate PCV 13 04/11/2017 Pneumococcal Conjugate Pcv20 11/07/2023 Pneumococcal Polysaccharide PPV23 10/28/2019 RSV Vaccine, Pref, Recombina nt, Subunit, Adjuvanted, PF, IM (Arexvy) 06/06/2023 Td, adsorbed 02/16/2003 Tdap 01/14/2022, 0,05/02/2019,09/18 ZOSTER LIVE 04/12/2017 ZOSTER Recombinant 11/07/2023,05/31/2019, 019 Social History Tobacco Use Types Packs/Day Years Used Date Smoking Tobacco: Former Cigarettes 1 22 1 970 - 1991 Smokeless Tobacco: Never Tobacco Cessation:Counseling Given: [...] on file Legal Sex Female 5:29 PM TRAUMA SURGEON Gender Identity Female 10/19/2020 7:50 AM TRAUMA SURGEON Sexual Orientation Straight 10/19/2020 7: 50 AM TRAUMA SURGEON Occupation Industry Job Start Date Job End Date Retired Not on file Not on file Not on file Last Filed Vital Signs Vital Sign Reading Time Taken Comments Blood Pressure 120/70 10/25/2024 10:45 AM TRAUMA SURGEON Pulse 64 10/25/2024 10:45 AM TRAUMA SURGEON Temperature 37.1 C (98.7 F) 02/08/2022 11:01 AM CDT Respiratory Rate 16 10/25/2024 10:45 AM TRAUMA SURGEON Oxygen Saturation 98% 10/25/2024 10:45 AM TRAUMA SURGEON Inhaled Oxygen Concentration - - Weight 71.2 kg (157 lb) 09/02/2024 9:56 AM TRAUMA SURGEON Height 160 cm (5' 3 ) 09/02/2024 9:56 AM TRAUMA SURGEON Body Mass Index 27.81 09/02/2024 9:56 AM TRAUMA SURGEON Plan of Treatment Not on file Goals Goal Patient Goal Type Associated Problems Recent Progress Patient-Stated? Author [facility] On track( 024 10:45 AM TRAUMA SURGEON) Miles Majano RN Note: Walking, sitting, sleeping, moving about with minimal to no pain. Medical Devices Implanted Type Area Radiagraph Operator Device Identifier Shelf Expiration Date Model / Serial / Lot Right 3 Hole Plate 70-0303 Implanted:Qty: 1 on 10/05/2021 by Luis Daniel Beverly MD at [facility] Plate Right: Olecranon [employer] 70-030 / N/A / Description:[facility] item# [id number] Per [employer] dashboard is active Cost ea. 892.00 Charge code assigned 562805 Synthes Plate Bone Lcp Titanium L66 Mm 7 Hole Shaft Low Profile Cut To Length Nonsterile 2.7 Mm Screw Modular Mini Fragment System 449.684 - [id number] Implanted:Qty: 1 on 01/26/2022 by Deana Lacey MD at [facility] Plate Left: Arm Synthes I 449.684 / / 3.5 X 24 Lock 30-0240 Implanted:Qty: 1 on 10/05/2021 by Luis Daniel Beverly MD at [facility] Screw Right: Olecranon [employer] 300240 / N/A / Description:[facility] ITEM# [id number] IS ACTIVE PER [employer] DASHBOARD COST EA. 111.00 CHARGE CODE ASSIGNED 283130 [employer] 30-0295 3mm 50mm Locking Hexalobe Elbow Screw Bone Nonsterile - [id number] Implanted:Qty: 1 on 10/05/2021 by Luis Daniel Beverly MD at [facility] Screw Right: Olecranon [employer] 30-0295 / / Synthes Lcp 2.7mm 46mm Self Tap Stardrive Radius Cortical Distal T8 Screw 402.965 - [id number] Implanted:Qty: 1 on 01/26/2022 by Deana Lacey MD at [facility] Screw Left: Arm Synthes I 402.965 / / Synthes Screw Bone Titanium Full Thread L32 Mm W2.5 Mm Od2.7 Mm Odsec5 Mm Cortex Self Tap Small Hexagonal Socket Spherical Head Nonsterile Mini Fragment Set 402.892 - [id number] Implanted:Qty: 1 on 01/26/2022 by Deana Lacey MD at [facility] Screw Left: Arm Synthes I 402.892 / / Synthes Screw Bone 2.7mm 34mm Lcp Ti Darius Selftap Nonstrl Mini Frag 402.894 - [id number] Implanted:Qty: 1 on 01/26/2022 by Deana Lacey MD at [facility] Screw Left: Arm Synthes I 402.894 / / Synthes Lcp 2.7mm 24mm T8 Stardrive Recess Self Tapping Radius Cortical 402.884 - [id number] Implanted:Qty: 1 on 01/26/2022 by Deana Lacey MD at [facility] Screw Left: Arm Synthes I 402.884 / / Synthes 2.4mm 4mm 20mm Self Tap Self Retain Stardrive Low Profile Cortex 401.770 - [id number] Implanted:Qty: 1 on 01/26/2022 by Deana Lacey MD at [facility] Screw Left: Arm Synthes I 401.770 / / Synthes Lcp 2.7mm 30mm T8 Stardrive Self Tap Radius Cortex Distal Screw 402.890 - [id number] Implanted:Qty: 1 on 01/26/2022 by Deana Lacey MD at [facility] Screw Left: Forearm Synthes I 402.89 0 / / 3.5x 20 Nonlocking Screw Implanted:Qty: 1 on 10/05/2021 by Luis Daniel Beverly MD at [facility] Right: [facility] / N/A / Description:[facility] ITEM#[id number] IS ACTIVE PER [employer] DASHBOARD COST EA. 68.00 EA CHARGE CODE ASSIGNED [id number] [employer] 7 2.7mm 14mm Locking Hexalobe Elbow Screw Bone Nonsterile - [id number] Implanted:Qty: 2 on 10/05/2021 by Luis Daniel Beverly MD at [facility] Right: Olecranon [employer] 30-0327 / / [employer] 30-0328 2.7mm 16mm Lock Hexalobe Screw Bone Titanium Nonsterile Small - [id number] Implanted:Qty: 2 on 10/05/2021 by Luis Daniel Beverly MD at [facility] Right: Olecranon [employer] 30-0328 / / [employer] 765969 3.5mm 20mm Locking Hexalobe Elbow Screw Bone Nonsterile - [id number] Implanted:Qty: 1 on 10/05/2021 by Luis Daniel Beverly MD at [facility] Right: Olecranon [employer] 845006 / / 2.5 X 20mm Non Locking Screw Implanted:Qty: 1 on 10/05/2021 by Luis Daniel Beverly MD at [facility] Right: Olecranon [employer] 30-0261 / N/A / Description:[facility] ITEM# [id number] IS ACTIVE PER [employer] DASHBOARD COST EA. 68.00 CHARGE CODE ASSIGNED [id number] Synthes Screw Bone 2.7mm 55mm Lcp Ti Darius Selftap Nonstrl Mini Frag 402.968 - [id number] Implanted:Qty: 1 on 01/26/2022 by Deana Lacey MD at [facility] Left: Forearm Synthes I 402.96 8 / / Synthes Lcp 2.4mm 4mm 22mm Self Tap Stardrive Humerus Radius Cortical 401.772 - [id number] Implanted:Qty: 2 on 01/26/2022 by Deana Lacey MD at [facility] Synthes I 401.772 / / Synthes Lcp 2.4mm 28mm Self Tapping Stardrive Recess Radius Humerus 401.778 - [id number] Implanted:Qty: 1 on 01/26/2022 by Deana Lacey MD at [facility] Synthes I 401.778 / / Synthes Plate Bone Compression Locking Low Profile 3x7 Hole Pre Contoured Lcp 2.4x58mm Ti 449.615 - [id number] Implanted:Qty: 1 on 01/26/2022 by Deana Lacey MD at [facility] Synthes I 449.615 / / Synthes Plate Bone Compression Locking Low Profile 6 Hole Pre Contoured Lcp 2.4x52mm Ti 449.676 - [id number] Implanted:Qty: 1 on 01/26/2022 by Deana Lacey MD at [facility] Synthes I 449.676 / / Synthes Screw Bone Cortical St Full Thread Lcp 2.7x44mm Ti 402.963 - [id number] Implanted:Qty: 1 on 01/26/2022 by Deana Lacey MD at [facility] Synthes I 402.963 / / Synthes Lcp 2.4mm 30mm T8 Stardrive Recess Self Tapping Locking Threaded 412.830 - [id number] Implanted:Qty: 1 on 01/26/2022 by Deana Lacey MD at [facility] Synthes I 412.830 / / Synthes Screw Bone 2.7mm 60mm Lcp Ti Darius Selftap Nonstrl Mini Frag 402.969 - [id number] Implanted:Qty: 1 on 01/26/2022 by Deana Lacey MD at [facility] Left: Arm Synthes I 402.969 / / Explanted Type Area Radiagraph Operator Device Identifier Shelf Expiration Date Model / Serial / Lot [employer] K Wire Fix Trocar Point Smooth Sgl End Ss [id number] - [id number] Explanted:Qty: 2 on 01/26/2022 by Deana Lacey MD at [facility] [employer] [id number] / / Procedures Procedure Name Priority Date/Time Associated Diagnosis Comments SCAN - LABS 10/23/2024 10:31 AM TRAUMA SURGEON SCREENING MAMMOGRAM BILATERAL W TADEO Schedule Routine, Read Routine (OP Routine) 03/15/2023 8:42 AM CDT Screening mammogram, encounter for DEXA AXIAL SKELETON BONE DENSITY 1 OR MORE SITES Schedule Routine, Read Routine (OP Routine) 01/20/2023 9:14 AM CDT Low back pain, non-specific Gait difficulty Osteoporosis screening Localized osteoporosis ([place]) from Last 3 Months or Most Recently Relevant to Health Maintenance Results * SCAN - LABS (10/23/2024 10:31 AM TRAUMA SURGEON) us Provider Scanning Final Result * DEXA Axial Skeleton Bone Density Multi Site (01/20/2023 9:14 AM CDT) Anatomical Region Laterality Modality Body N/A Other 01/21/2023 7:26 AM CDT Narrative 01/21/2023 7:28 AM CDT EXAM DESCRIPTION: DEXA AXIAL SKELETON BONE DENSITY 1 OR MORE SITES REASON FOR STUDY: 72 y/o year old F with given history of screening. Postmenopausal Radiagraph Operator/Model: triptap SL (S/N [id number]) CLINICAL INFORMATION: Current height: 63.5 inches Maximum [...] Estuardo Quach M.D. MF: APRIL Report ID: [id number] Reading Location: [place] [address] Procedure Note Estuardo Quach MD - 01/21/2023 EXAM DESCRIPTION: DEXA AXIAL SKELETON BONE DENSITY 1 OR MORE SITES REASON FOR STUDY: 72 y/o year old F with given history of screening. Postmenopausal Radiagraph Operator/Model: triptap SL (S/N [id number]) CLINICAL INFORMATION: Current height: 63.5 inches Maximum [...] Estuardo Quach M.D. MF: APRIL Report ID: [id number] Reading Location: [place] [address] Clive Johnson MD IM DXA PROCEDURES Final Result from Last 3 Months or Most Recently Relevant to Health Maintenance Insurance MEDICARE SOLUTIONS MEDICARE SOLUTIONS MEDICARE SOLUTIONS Advance Directives For more information, please contact: [phone] * Full Code (Latest Code Status on File) Date Activated Date Inactivated Comments 01/26/2022 4:21 PM 01/28/2022 7:52 PM * Full Code Date Activated Date Inactivated Comments 01/26/2022 4:41 AM 01/26/2022 4:21 PM Care Teams Senior Buyer Relationship Specialty Start Date End Date Martín Cuenca MD [address] [place] [address] PCP - General Family Medicine 12/04/23
--- OUTSIDE RECORDS SUMMARY | 2024-10-25 16:19 | XMS_ITS | Encounter Summary ---
Author Organization [facility] Address [address] [place] [address] Care Team Providers Care Side Puller Name Role Phone Kylie Reynolds MD Primary [...] on file Legal Sex Female 5:26 AM CODIFIER Gender Identity Not on file Sexual Orientation Not on file documented as of this encounter Plan of Treatment Not on file documented as of this encounter Visit Diagnoses Diagnosis Nonspecific abnormal results of liver function study- Primary documented in this encounter Care Teams Side Puller Relationship Specialty Start Date End Date Kylie Reynolds MD NO ADDRESS ON FILE PCP - General 01/23/01 02/25/16 documented as of this encounter
--- OUTSIDE RECORDS SUMMARY | 2024-10-25 16:19 | XMS_ITS | Encounter Summary ---
Author Organization [facility] Address [address] [facility] [place] [address] Phone Care Team Providers Care Electronic Die Maker Name Role Phone Ramin Angeles DO Unavailable [phone] Jeniffer Burciaga MD Primary Care Provider [phone] Lizz Mccauley RN Unavailable Unavailable Lincoln Simpson DPM Unavailable Unavailable Provider, None Primary Care Provider Unavailabl e Martín Cuenca MD Primary Care Provider [phone] Bairon Ryan MD Unavailable [phone] Larisa Eisenberg CHIEF LIBRARIAN MUSIC DEPARTMENT, WARD SECRETARY Unavailable + [phone] Cynthia Woody CHIEF LIBRARIAN MUSIC DEPARTMENT, WARD SECRETARY Primary Care Provider + Elio Monae MD Unavailable Gorge Morel MD Primary Care Provider + [phone] Reason for Visit * Reason Onset Date Comments Medication Refill Medication Refill 01/18/2021 Encounter Details Date Type Department Care Team (Late st Contact Info) Description 01/01/2021 Refill [facility] [address] [place] [phone] Jeniffer Burciaga MD [address] [place] [address] Medication Refill; Medication Refill Social History Tobacco [...] st Contact Info) Description 11/13/2024 8:00 AM FARMER GENERAL Procedure Visit [facility] [address] [place] [phone] Davion Alicea MD [address] [address] 12/18/2024 10:30 AM CDT Office Visit [facility] [place] [address] [place] [address] Cynthia Woody, CHIEF LIBRARIAN MUSIC DEPARTMENT, WARD SECRETARY [address] [place] [address] 03/10/2025 1:00 PM CDT Office [facility] [address] [place] [phone] Gilmar Bond MD [address] [place] [address] Discharge Disposition: Discharged to home or Selfcare documented as of this encounter Visit Diagnoses Not on filedocumented in this encounter Additional Health Concerns Assessment Noted Time PHQ-9 Depression Total Score: 0 04/12/20 18 2:00 PM CDT documented as of this encounter Care Teams Electronic Die Maker Relationship Specialty Start Date End Date Jeniffer Burciaga MD [address] [place] [address] PCP - General Family Medicine 02/10/16 09/06/23 Provider, None [place] PCP - General 09/07/23 10/05/23 Martín Cuenca MD [address] [place] [address] PCP - General Family Medicine 10/06/23 02/05/24 Cynthia Woody, CHIEF LIBRARIAN MUSIC DEPARTMENT, WARD SECRETARY [address] [place] [address] PCP - General Advanced Practice Nurse 02/07/24 Gorge Morel MD [address] [place] [address] PCP - General Infectious Disease 10/15/24 Ramin Angeles DO Consulting Physician Gastroenterology 01/14/16 08/20/24 Lizz Mccauley, [place] Senior Bi Architect 12/15/21 08/07/22 Lincoln Simpson DPM Podiatry 03/30/22 Bairon Ryan MD [address] [place] [address] Consulting Physician Neurology 09/07/23 Larisa Eisenberg, CHIEF LIBRARIAN MUSIC DEPARTMENT, WARD SECRETARY [address] [address] Nurse Practitioner Advanced Practice Nurse 01/26/24 Elio Monae MD [address] [place] [address] Consulting Physician Pulmonary Disease 06/05/24 documented as of this encounter
--- OUTSIDE RECORDS SUMMARY | 2024-10-25 16:20 | XMS_ITS | Clinical Summary ---
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 snf (current) use of opiate analgesic 02/16 Acute pain due to trauma 01/26/2022 Closed fracture of left olecranon process 2021 Overview (01/25/2022): Added automatically from request for surgery [id number] Closed head injury 01/25/2022 Closed head injury, [...] (10/04/2021): Added automatically from request for surgery [id number] Trigger ring finger of right hand 11/07/2019 ADD (attention deficit disorder) 02/10/2016 Bipolar disorder, in full re mission, most recent episode mixed ([facility]) 02/10/2016 Dyslipidemia 02/10/2016 Hypersomnia with sleep [...] Department Care Team Description 10/25/2024 10:07 AM PURCHASING OFFICER Hospital Encounter [facility] [address] [place] [address] Corazon Thomas NP superintendent container terminal (current) use of opiate analgesic (Primary Dx); Lumbar facet arthropathy; Cervicalgia 10/23/2024 Orders Only [facility] Health Information Management [address] [place] [address] Scanning, Provider 09/02/2024 9:45 AM PURCHASING OFFICER Office Visit [facility] [address] [facility] [address] [place] [address] Christina Wheat MD MCKENNA (obstructive sleep apnea) (Primary Dx); Idiopathic hypersomnia without long sleep time 08/02/2024 8:48 AM PURCHASING OFFICER - 08/02/2024 11:59 PM PURCHASING OFFICER Hospital Encounter [facility] [address] [place] [address] Corazon Thomas NP Degenerative lumbar spinal stenosis [...] ZOSTER LIVE 04/12/2017 ZOSTER Recombinant 11/07/2023,05/31/2019, 019 Surgical History Surgery Date Site/Laterality Comments OTHER [...] Medical Bulimia nervosa Gastric reflux Rheumatoid arthritis ([facility]) Depression Sleep apnea GERD (gastroesophageal reflux disease) Bipolar disorder ([facility]) Cataract Septic arthritis of elbow, r ight ([facility]) ([facility]) 10/2021 Staphylococcal arthritis, ri ght elbow Osteopenia Olecranon fracture, right, o pen type III, with nonunion, subsequent encounter 09/2021 Rupture of biceps tendon, ri ght, sequela Alcoholism ([facility]/H[facility]) ([facility]) Anemia Anxiety Bleeding disorder (CMS/HCC) ([facility]) Dermatitis Diverticulitis of colon Osteoporosis Substance abuse ([facility]) ([facility]) Smoking Family History Medical History Relation Name [...] Smoking Tobacco: Former Cigarettes 1 22 1 0 - 1991 Smokeless Tobacco: Never Tobacco Cessation:Counseling [...] on file Legal Sex Female 5:29 PM PURCHASING OFFICER Gender Identity Female 10/19/2020 7:50 AM PURCHASING OFFICER Sexual Orientation Straight 10/19/2020 7: 50 AM PURCHASING OFFICER Occupation Industry Job Start Date Job End [...] Comments Blood Pressure 120/70 10/25/2024 10:45 AM PURCHASING OFFICER Pulse 64 10/25/2024 10:45 AM PURCHASING OFFICER Temperature 37.1 C (98.7 F) 02/08/2022 11:01 AM CDT Respiratory Rate 16 10/25/2024 10:45 AM PURCHASING OFFICER Oxygen Saturation 98% 10/25/2024 10:45 AM PURCHASING OFFICER Inhaled Oxygen Concentration - - Weight 71.2 kg (157 lb) 09/02/2024 9:56 AM PURCHASING OFFICER Height 160 cm (5' 3 ) 09/02/2024 9:56 AM PURCHASING OFFICER Body Mass Index 27.81 09/02/2024 9:56 AM PURCHASING OFFICER Plan of Treatment Health Maintenance Due Date Last Done Comments Colon Cancer Screening-Colonoscopy 1950 Hepatitis C Screening 1950 Hepatitis B Screening 1970 Well Visit 65+ 2017 Fall Risk Assessment 01/28/2023 01/28/2022 Osteoporosis Screening-Bone Density Scan 01/20/2025 01/20/2023, 01/20/2023, 01/22/2021, Additional history exists Breast Cancer Screening-Mammogram 08/21/2025 08/21/2024, 08/21/2024, 03/15/2023, Additional history exists Depression Screening 10/25/2025 10/25/2024, 10/25/2024, 08/02/2024, Additional history exists DTaP/Tdap/Td Vaccine (5 - Td or Tdap) 01/15/2032 01/14/2022, 03/24/2020, 05/02/2019, Additional history exists Pneumococcal vaccine 65+ Completed 024, 10/28/2019, 04/11/2017 Zoster Vaccine Completed 11/07/2023, 05/19, 02/21/2019, Additional history exists Influenza Vaccine Completed 06/17/2024, , 06/06/2023, Additional history exists Covid-19 Vaccine Completed 07/11/2024, , 06/03/2022, Additional history exists Goals Goal Patient Goal Type Associated Problems Recent Progress Patient-Stated? Author [facility] On track( 024 10:45 AM PURCHASING OFFICER) Miles Majano, RN Note: Walking, sitting, sleeping, moving about with minimal to no pain. Medical Devices Implanted Type Area Bowling Ball Molder Device Identifier Shelf Expiration Date Model / Serial / Lot Right 3 Hole Plate 70-0303 Implanted:Qty: 1 on 10/05/2021 by Luis Daniel Beverly MD at [facility] Plate Right: [employer] 70-0303 / N/A / Description:[facility] item# [id number] Per [facility] lite dashboard is active Cost ea. 892.00 Charge code assigned [id number] Synthes Plate Bone Lcp Titanium L66 Mm 7 Hole Shaft Low Profile Cut To Length Nonsterile 2.7 Mm Screw Modular Mini Fragment System 449.684 - [id number] Implanted:Qty: 1 on 01/26/2022 by Deana Lacey MD at [facility] Plate Left: Arm Synthes I 449.684 / / 3.5 X 24 Lock Implanted:Qty: 1 on 10/05/2021 by Luis Daniel Beverly MD at [facility] Screw Right: OlecranoFindTheBest 024 / N/A / Description:[facility] ITEM# [id number] IS ACTIVE PER [employer] LITE DASHBOARD COST EA. 111.00 CHARGE CODE ASSIGNED [id number] [employer]d [employer] 300295 3mm 50mm Locking Hexalobe Elbow Screw Bone Nonsterile - [id number] Implanted:Qty: 1 on 10/05/2021 by Luis Daniel Beverly MD at [facility] Screw Right: OlecranoFermentalg Inc 300295 / / Synthes Lcp 2.7mm 46mm Self Tap Stardrive Radius Cortical Distal T8 Screw 402.965 - [id number] Implanted:Qty: 1 on 01/26/2022 by Deana Lacey MD at [facility] Screw Left: Arm Synthes I 402.965 / / Synthes Screw Bone Titanium Full Thread L32 Mm W2.5 Mm Od2.7 Mm Odsec5 Mm Cortex Self Tap Small Hexagonal Socket Spherical Head Nonsterile Mini Fragment Set 402.892 - [id number] Implanted:Qty: 1 on 01/26/2022 by Deana Lacey MD at [facility] Screw Left: Arm Synthes I 402.892 / / Synthes Screw Bone 2.7mm 34mm Lcp Ti Darius Selftap Nonstrl Mini Frag 402.894 - [id number] Implanted:Qty: 1 on 01/26/2022 by Deana Lacey MD at [facility] Screw Left: Arm Synthes I 402.894 / / Synthes Lcp 2.7mm 24mm T8 Stardrive Recess Self Tapping Radius Cortical 402.884 - [id number] Implanted:Qty: 1 on 01/26/2022 by Deana Lacey MD at [facility] Screw Left: Arm Synthes I 402.884 / / Synthes 2.4mm 4mm 20mm Self Tap Self Retain Stardrive Low Profile Cortex 401.770 - [id number] Implanted:Qty: 1 on 01/26/2022 by Deana Lacey MD at [facility] Screw Left: Arm Synthes I 401.770 / / Synthes Lcp 2.7mm 30mm T8 Stardrive Self Tap Radius Cortex Distal Screw 402.890 - [id number] Implanted:Qty: 1 on 01/26/2022 by Deana Lacey MD at [facility] Screw Left: Forearm Synthes I 402.89 0 / / 3.5x 20 Nonlocking Screw 30-0262 Implanted:Qty: 1 on 10/05/2021 by Luis Daniel Beverly MD at [facility] Right: Olecranon [employer] 30026 / N/A / Description:[facility] ITEM#[id number] IS ACTIVE PER Nordic[employer] DASHBOARD COST EA. 68.00 EA CHARGE CODE ASSIGNED [id number] Ac[employer] Inc 30-0327 2.7mm 14mm Locking Hexalobe Elbow Screw Bone Nonsterile - [id number] Implanted:Qty: 2 on 10/05/2021 by Luis Daniel Beverly MD at [facility] Right: Olecranon [employer] 30-0327 / / Acumed Inc 30-0328 2.7mm 16mm Lock Hexalobe Screw Bone Titanium Nonsterile Small - [id number] Implanted:Qty: 2 on 10/05/2021 by Luis Daniel Beverly MD at [facility] Right: Olecranon [employer] Inc 30-0328 / / Acumed Inc [id number] 3.5mm 20mm Locking Hexalobe Elbow Screw Bone Nonsterile - [id number] Implanted:Qty: 1 on 10/05/2021 by Luis Daniel Beverly MD at [facility] Right: Olecranon [employer] Inc [id number] / / 2.5 X 20mm Non Locking Screw Implanted:Qty: 1 on 10/05/2021 by Luis Daniel Beverly MD at [facility] Right: Olecranon [employer] Inc 30-0261 / N/A / Description:[facility] ITEM# [id number] IS ACTIVE PER Evision SystemsS LITE DASHBOARD COST EA. 68.00 CHARGE CODE ASSIGNED [id number] Synthes Screw Bone 2.7mm 55mm Lcp Ti Darius Selftap Nonstrl Mini Frag 402.968 - [id number] Implanted:Qty: 1 on 01/26/2022 by Deana Lacey MD at [facility] Left: Forearm Synthes I 402.96 8 / / Synthes Lcp 2.4mm 4mm 22mm Self Tap Stardrive Humerus Radius Cortical 401.772 - [id number] Implanted:Qty: 2 on 01/26/2022 by Deana Lacey MD at [facility] Synthes I 401.772 / / Synthes Lcp 2.4mm 28mm Self Tapping Stardrive Recess Radius Humerus 401.778 - [id number] Implanted:Qty: 1 on 01/26/2022 by Deana Lacey MD at [facility] Synthes I 401.778 / / Synthes Plate Bone Compression Locking Low Profile 3x7 Hole Pre Contoured Lcp 2.4x58mm Ti 449.615 - [id number] Implanted:Qty: 1 on 01/26/2022 by Deaan Lacey MD at [facility] Synthes I 449.615 / / Synthes Plate Bone Compression Locking Low Profile 6 Hole Pre Contoured Lcp 2.4x52mm Ti 449.676 - [id number] Implanted:Qty: 1 on 01/26/2022 by Deana Lacey MD at [facility] Synthes I 449.676 / / Synthes Screw Bone Cortical St Full Thread Lcp 2.7x44mm Ti 402.963 - [id number] Implanted:Qty: 1 on 01/26/2022 by Deana Lacey MD at [facility] Synthes I 402.963 / / Synthes Lcp 2.4mm 30mm T8 Stardrive Recess Self Tapping Locking Threaded 412.830 - [id number] Implanted:Qty: 1 on 01/26/2022 by Deana Lacey MD at [facility] Synthes I 412.830 / / Synthes Screw Bone 2.7mm 60mm Lcp Ti Darius Selftap Nonstrl Mini Frag 402.969 - [id number] Implanted:Qty: 1 on 01/26/2022 by Deana Lacey MD at [facility] Left: Arm Synthes I 402.969 / / Explanted Type Area Bowling Ball Molder Device Identifier Shelf Expiration Date Model / Serial / Lot [employer] K Wire Fix [place] Smooth Sgl End Ss [id number] - [id number] Explanted:Qty: 2 on 01/26/2022 by Deana Lacey MD at [facility] [employer] [id number] / / Procedures Procedure Name Priority Date/Time Associated Diagnosis Comments SCAN - LABS 10/23/2024 10:31 AM PURCHASING OFFICER SCREENING MAMMOGRAM BILATERAL W TADEO Schedule Routine, [...] * SCAN - LABS (10/23/2024 10:31 AM PURCHASING OFFICER) us Provider Scanning Final Result * DEXA Axial Skeleton Bone Density Multi Site (01/20/2023 9:14 AM CDT) Anatomical Region Laterality Modality Body N/A Other 01/21/2023 7:26 AM CDT Narrative 01/21/2023 7:28 AM CDT EXAM DESCRIPTION: DEXA AXIAL SKELETON BONE DENSITY 1 OR MORE SITES REASON FOR STUDY: 72 y/o year old F with given history of screening. Postmenopausal Bowling Ball Molder/Model: Furnésh (S/N [id number]) CLINICAL INFORMATION: Current height: 63.5 inches Maximum [...] Estuardo Quach M.D. MF: APRIL Report ID: [id number] Reading Location: [id number] Procedure Note Estuardo Quach MD - 01/21/2023 EXAM DESCRIPTION: DEXA AXIAL SKELETON BONE DENSITY 1 OR MORE SITES REASON FOR STUDY: 72 y/o year old F with given history of screening. Postmenopausal Bowling Ball Molder/Model: [employer] Discovery SL (S/N 90802) CLINICAL INFORMATION: Current height: 63.5 inches Maximum [...] Estuardo Quach M.D. MF: APRIL Report ID: [id number] Reading Location: [place] [address] Clive Johnson MD IMG DXA PROCEDURES Final Result from Last 3 Months or Most Recently Relevant to Health Maintenance Insurance [facility] Address: [place] [id number] [facility] Address: [place] [id number] MEDICARE SOLUTIONS [facility] MEDIC[facility] Address: [facility] [address] [place] [address] Advance Directives For more information, please contact: [phone] * Full Code (Latest Code Status on File) Date Activated Date Inactivated Comments 01/26/2022 4:21 PM 01/28/2022 7:52 PM * Full Code Date Activated Date Inactivated Comments 01/26/2022 4:41 AM 01/26/2022 4:21 PM Care Teams Merry Go Round Attendant Relationship Specialty Start Date End Date Martín Cuenca MD [address] [place] [address] PCP - General Family Medicine 12/04/23
--- OUTSIDE RECORDS SUMMARY | 2024-10-25 16:20 | XMS_ITS | Encounter Summary ---
Author Organization [facility] Address [address] [facility] [place] [address] Phone Care Team Providers Care Pcmh Specialist Name Role Phone Ramin Angeles DO Unavailable [phone] Lincoln Simpson DPM Unavailable Unavailable Provider, None Primary Care Provider Unavailabl e Martín Cuenca MD Primary Care Provider [phone] Bairon Ryan MD Unavailable [phone] Larisa Eisenberg CONSTRUCTION TECHNICIAN, FIXED ASSETS ACCOUNTANT Unavailable + [phone] Cynthia Woody CONSTRUCTION TECHNICIAN, FIXED ASSETS ACCOUNTANT Primary Care Provider + Elio Monae MD Unavailable Gorge Morel MD Primary Care Provider Reason for Visit * Reason Comments Medication Refill Encounter Details Date Type Department Care Team (Late st Contact Info) Description 09/12/2023 Refill [facility] - [place] [address] [place] [address] Tram Mondragon APRN, FIXED ASSETS ACCOUNTANT [address] [id number] Medication Refill Social History Tobacco Use Types [...] Miscellaneous Notes * Telephone Encounter - Cheryl Stroy RN - 09/12/2023 1:58 PM CST Jeniffer [...] 04/05/23 Office Visit Kylie Chawla PAC [facility] 03/06/23 Telemedicine Jeniffer Burciaga MD [facility] 11/30/22 Office Visit Jeniffer Burciaga MD [facility] 09/28/22 Office Visit Cynthia Woody, CONSTRUCTION TECHNICIAN, FIXED ASSETS ACCOUNTANT [facility] Showing recent visits within past 365 days and meeting all other requirements Future Appointments No visits were found meeting these conditions. Showing future appointments within next 90 days and meeting all other requirements LY TECHNICIAN documented in this encounter Plan of Treatment Upcoming Encounters Date Type Department Care Team (Late st Contact Info) Description 11/13/2024 8:00 AM SUPPLY TECHNICIAN Procedure Visit [facility] PHYSICIAN [facility] UROLOGY #[address] [place] [address] Davion Alicea MD [address] [address] 12/18/2024 10:30 AM CDT Office Visit [facility] - [facility] [address] [place] [address] Cynthia Woody, CONSTRUCTION TECHNICIAN, FIXED ASSETS ACCOUNTANT [address] [place] [address] 03/10/2025 1:00 PM CDT Office Visit [facility] Oncology Services [address] [place] [address] Gilmar Bond MD [address] [place] [address] Discharge Disposition: Discharged to home or Selfcare documented as of this encounter Visit Diagnoses Not on filedocumented in this encounter Additional Health Concerns Assessment Noted Time PHQ-9 Depression Total Score: 0 04/12/20 18 2:00 PM CDT documented as of this encounter Care Teams Pcmh Specialist Relationship Specialty Start Date End Date Provider, None [place] PCP - General 09/07/23 10/05/23 Martín Cuenca MD [address] [place] [address] PCP - General Family Medicine 10/06/23 02/05/24 Cynthia Woody, CONSTRUCTION TECHNICIAN, FIXED ASSETS ACCOUNTANT [address] [place] [address] PCP - General Advanced Practice Nurse 02/07/24 G[place] [place] [address] PCP - General Infectious Disease 10/15/24 Ramin Angeles DO Consulting Physician Gastroenterology 01/14/16 08/20/24 Lincoln Simpson DPM Podiatry 03/30/22 Bairon Ryan MD [address] [place] [address] Consulting Physician Neurology 09/07/23 Larisa Eisenberg APRN, FIXED ASSETS ACCOUNTANT [address] [facility] [address] [place] [address] Nurse Practitioner Advanced Practice Nurse 01/26/24 Elio Monae MD [address] [place] [address] Consulting Physician Pulmonary Disease 06/05/24 documented as of this encounter
--- OUTSIDE RECORDS SUMMARY | 2024-10-25 16:20 | XMS_ITS | Encounter Summary ---
Author Organization [facility] Address [address] [facility] [place] [address] Phone Care Team Providers Care Forward Air Controller/Air Officer Name Role Phone Ramin Angeles DO Unavailable [phone] Jeniffer Burciaga MD Primary Care Provider [phone] Lizz Mccauley RN Unavailable Unavailable Lincoln Simpson DPM Unavailable Unavailable Provider, None Primary Care Provider Unavailabl e Martín Cuenca MD Primary Care Provider [phone] Bairon Ryan MD Unavailable [phone] Larisa Eisenberg BLEACHER LARD, MACHINE SHOP APPRENTICE Unavailable + [phone] Cynthia Woody BLEACHER LARD, MACHINE SHOP APPRENTICE Primary Care Provider + Elio Monae MD Unavailable Gorge Morel MD Primary Care Provider [phone] Reason for Referral * Consult, Test & Initiate Treatment (Routine) - Closed Specialty Diagnoses / Procedures Referred By Jimenez wilkinson Referred To Contact Diagnoses Pain of hand, unspecified laterality Jeniffer Burciaga MD [address] [place] [address] Phone: tel: fax: [facility] AT [address] [place] [address] Phone: tel: fax: Referral ID Status Reason Start Date Expiration Date Visits Re quested Visits Authorized [id number] Closed 09/16/2021 1 1 Scheduling Instructions Rina [...] to underlying condition without cataplexy Lumbar radiculopathy ESS REPAIRER Reason for Visit * Reason Comments Medication Refill Encounter Details Date Type Department Care Team (Late st Contact Info) Description 09/15/2021 Refill [facility] [address] [place] [address] Jeniffer Burciaga MD [address] [place] [address] Medication Refill Social History Tobacco Use Types [...] COVID-19? No / Unsure 09/02/2021 6:39 AM HARNESS REPAIRER documented as of this encounter Miscellaneous Notes * Telephone Encounter - Ernestina Lew RN - 09/15/2021 4:53 PM CST Ortho referral pended ESS REPAIRER documented in this encounter Plan of Treatment Upcoming Encounters Date Type Department Care Team (Late st Contact Info) Description 11/13/2024 8:00 AM HARNESS REPAIRER Procedure Visit [facility] PHYSICIAN [facility] UROLOGY [address] [place] [address] Davion Alicea MD #[address] [address] 12/18/2024 10:30 AM CDT Office Visit [facility] [address] [place] [address] Cynthia Woody APRN, MACHINE SHOP APPRENTICE [address] [place] [address] 03/10/2025 1:00 PM CDT [facility] [address] [place] [address] Gilmar Bond MD [address] [place] [address] Discharge Disposition: Discharged to home or Selfcare [...] documented as of this encounter Care Teams Forward Air Controller/Air Officer Relationship Specialty Start Date End Date Jeniffer Burciaga MD [address] [place] [address] PCP - General Family Medicine 02/10/16 09/06/23 Provider, [facility] PCP - General 09/07/23 10/05/23 Martín Cuenca MD [address] [place] [address] PCP - General Family Medicine 10/06/23 02/05/24 Cynthia Woody, BLEACHER LARD, MACHINE SHOP APPRENTICE [address] [place] [address] PCP - General Advanced Practice Nurse 02/07/24 Gorge Morel MD [address] [place] [address] PCP - General Infectious Disease 10/15/24 Ramin Angeles DO Consulting Physician Gastroenterology 01/14/16 08/20/24 Lizz Mccauley, SRINATH [place] Meeting Planner 12/15/21 08/07/22 Lincoln Simpson DPM Podiatry 03/30/22 Bairon Ryan MD [address] [place] [address] Consulting Physician Neurology 09/07/23 Larisa Eisenberg APRN, MACHINE SHOP APPRENTICE #2 [facility] [address] [place] [address] Nurse Practitioner Advanced Practice Nurse 01/26/24 Elio Monae MD [address] [place] [address] Consulting Physician Pulmonary Disease 06/05/24 documented as of this encounter
--- OUTSIDE RECORDS SUMMARY | 2024-10-25 16:20 | XMS_ITS | Encounter Summary ---
Author Organization [facility] Address [address] [facility] [place] [address] Phone Care Team Providers Care Comic Book Artist Name Role Phone Tatiana, Lincoln Frank DPM Unavailable Unavailable Bairon Ryan MD Unavailable [phone] Cynthia Woody INLAYER, CHILD THERAPIST Primary Care Provider + Elio Monae MD Unavailable Gorge Morel MD Primary Care Provider [phone] Encounter Details Date Type Department Care Team (Late st Contact Info) Description 09/04/2024 Results Follow-Up [facility] Medical Group - Family Medicine [facility] #2 [place] [address] Cynthia Woody, KYA, CHILD THERAPIST #2 [place] [address] Social History Tobacco Use Types Packs/Day Years Used Date Smoking Tobacco: Former Cigarettes 1 22 0 09/18/1969 - 09/18/1991 Smokeless Tobacco: Never Comments:Stopped smoking 30 years ago Alcohol Use Standard Drinks/Week Comments Never 0 (1 standard drink = 0.6 oz pur e alcohol) 1990 stopped [facility] Utilities Answer Date Recorded In the past [...] declined 04/22/2024 How often do you attend taoism or jainism serv ices? Patient declined 04/22/2024 Do you belong to any clubs o r organizations such as taoism groups, unions, fraternal or athletic groups, or [...] Total Score - Questions 1-9 0 03/3 [facility] of Occupat ional Health - Occupational [...] place to sleep or slept in a usp (including now)? No 09/30/2023 Housing Stability Vital Sign Answer Jaden e Recorded In the last 12 months, was t here a time when you were not able to pay the mortgage or rent on time? Patient declined 04/22/20 24 Number of Times Moved in the Last Year Not on fi le 04/22/2024 At any time in the past 12 m [facility], were you homeless or living in a usp (including now)? Patient declined 04/22/2024 Education Answer [...] st Contact Info) Description 11/13/2024 8:00 AM DIGITAL MARKETING PROGRAM MANAGER Procedure Visit [facility] PHYSICIAN [facility] UROLOGY #2 [place] [address] Davion Alicea MD #[address] [address] 12/18/2024 10:30 AM CDT [facility] #2 [place] [address] Cynthia Woody, INLAYER, CHILD THERAPIST #2 [place] [address] 03/10/2025 1:00 PM CDT [facility] [address] [place] [address] Gilmar Bond MD [address] [place] [address] Discharge Disposition: Discharged to home or Selfcare documented as of this encounter Visit Diagnoses Not on filedocumented in this encounter Additional Health Concerns Assessment Noted Time PHQ-9 Depression Total Score: 0 04/12/20 18 2:00 PM CDT documented as of this encounter Care Teams Comic Book Artist Relationship Specialty Start Date End Date Cynthia Woody, INLAYER, CHILD THERAPIST [address] [place] [address] PCP - General Advanced Practice Nurse 02/07/24 10/14/24 Gorge Morel MD [place] [address] PCP - General Infectious Disease 10/15/24 Lincoln Simpson DPM Podiatry 03/30/22 Bairon Ryan MD #2 [place] [address] Consulting Physician Neurology 09/07/23 Elio Monae MD #2 [place] [address] Consulting Physician Pulmonary Disease 06/05/24 documented as of this encounter
--- OUTSIDE RECORDS SUMMARY | 2024-10-25 16:20 | XMS_ITS | Encounter Summary ---
Author Organization [facility] Address [address] [facility] [place] [address] Phone Care Team Providers Care Network Relations Consultant Name Role Phone Ramin Angeles DO Unavailable [phone] Lincoln Simpson DPM Unavailable Unavailable Martín Cuenca MD Primary Care Provider Bairon Ryan MD Unavailable [phone] Larisa Eisenberg RELATIONS MGR, PRODUCTION DIRECTOR Unavailable + [phone] Cynthia Woody RELATIONS MGR, PRODUCTION DIRECTOR Primary Care Provider + Elio Monae MD Unavailable Gorge Morel MD Primary Care Provider + [phone] Reason for Visit * Reason Comments Medication Refill Encounter Details Date Type Department Care Team (Late st Contact Info) Description 01/06/2024 Refill [facility] Medical Group - Family Medicine [facility] #2 [place] [address] Kylie Chawla, [facility] #2 [place] [address] Medication Refill Social History Tobacco Use Types Packs/Day Years Used Date Smoking Tobacco: Former Cigarettes 1 22 0 09/18/1969 - 09/18/1991 Smokeless Tobacco: Never Comments:Stopped smoking 30 years ago Alcohol Use Standard Drinks/Week Comments Never 0 (1 standard drink = 0.6 oz pur e alcohol) 1990 stopped [facility] Utilities Answer Date Recorded In the past 12 months has e [employer], gas, oil, or water company threatened to [...] often do you attend chur ch or alevism services? Never 09/30/2023 Do you belong to any clubs o r organizations such as buddhist groups, unions, fraternal or athletic groups, or [...] Total Score - Questions 1-9 0 11/18 [facility] of Occupat ional Health - Occupational Stress [...] a senior living (including now)? No 09/30/2023 Education Answer Date [...] AM CDT Medication(s) refilled and signed per [facility] Chronic Medication Refill Standing Order for Pediatricand [...] Dept 12/29/23 Office Visit Cynthia Woody APRN, PRODUCTION DIRECTOR [facility] 10/06/23 Office Visit Cynthia Woody APRN, PRODUCTION DIRECTOR [facility] 05/15/23 Office Visit Jeniffer Burciaga [facility] 04/05/23 Office Visit Kylie Chawla [facility] 03/06/23 Telemedicine Jeniffer Burciaga MD [facility] Showing recent visits within past 365 days and meeting all other requirements Future Appointments Date Type Provider Dept 02/01/24 Appointment Martín Cuenca MD [facility] Showing future appointments within next 90 days and meeting all other requirements documented in this encounter Plan of Treatment Upcoming Encounters Date Type Department Care Team (Late st Contact Info) Description 11/13/2024 8:00 AM WEB OPERATIONS ADMINISTRATOR Procedure Visit [facility]IAN [facility] UROLOGY #2 [place] [address] Davion Alicea MD [address] [address] 12/18/2024 10:30 AM CDT Office Visit [facility] Medical Group - Family Medicine [facility] [address] [facility] [place] [place] [address] Cynthia Woody APRN, PRODUCTION DIRECTOR [address] [place] [address] 03/10/2025 1:00 PM CDT [facility] [address] [place] [address] Gilmar Bond MD [address] [place] [address] Discharge Disposition: Discharged to home or Selfcare documented as of this encounter Visit Diagnoses Diagnosis Gastroesophageal reflux disease, unspecified whether esophagitis present Hiatal hernia Diaphragmatic hernia without mention of obstruction or gangrene documented in this encounter Additional Health Concerns Assessment Noted Time PHQ-9 Depression Total Score: 0 04/12/20 18 2:00 PM CDT documented as of this encounter Care Teams Network Relations Consultant Relationship Specialty Start Date End Date Martín Cuenca MD #1 [place] [address] PCP - General Family Medicine 10/06/23 02/05/24 Cynthia Woody, RELATIONS MGR, PRODUCTION DIRECTOR [address] [place] [address] PCP - General Advanced Practice Nurse 02/07/24 Gorge Morel MD [place] [address] PCP - General Infectious Disease 10/15/24 Ramin Angeles DO Consulting Physician Gastroenterology 01/14/16 08/20/24 Lincoln Simpson DPM Podiatry 03/30/22 Bairon Ryan MD #[address] [place] [address] Consulting Physician Neurology 09/07/23 Larisa Eisenberg APRN, PRODUCTION DIRECTOR #2 [facility], [address] [address] Nurse Practitioner Advanced Practice Nurse 01/26/24 Elio Monae MD [address] [place] [address] Consulting Physician Pulmonary Disease 06/05/24 documented as of this encounter
--- OUTSIDE RECORDS SUMMARY | 2024-10-25 16:20 | XMS_ITS | Encounter Summary ---
Author Organization [facility] Address [address] [facility] [place] [address] Phone Care Team Providers Care Armature Inspector Name Role Phone Ramin Angeles DO Unavailable [phone] Lincoln Simpson DPM Unavailable Unavailable Martín Cuenca MD Primary Care Provider [phone] Bairon Ryan MD Unavailable [phone] Larisa Eisenberg FLIGHT SIMULATOR TEACHER, PRODUCTION CONTROL COORDINATOR Unavailable + [phone] Cynthia Woody FLIGHT SIMULATOR TEACHER, PRODUCTION CONTROL COORDINATOR Primary Care Provider + Elio Monae MD Unavailable Gorge Morel MD Primary Care Provider + [phone] Reason for Visit * Reason Comments Medication Refill Encounter Details Date Type Department Care Team (Late st Contact Info) Description 11/24/2023 Refill [facility] - [place] [address] [place] [address] Estuardo Lam MD [address] [address] [address] Medication Refill Social History Tobacco Use Types Packs/Day Years Used Date Smoking Tobacco: Former Cigarettes 1 22 0 09/18/1969 - 09/18/1991 Smokeless Tobacco: Never Comments:Stopped smoking 30 years ago Alcohol Use Standard Drinks/Week Comments Never 0 (1 standard drink = 0.6 oz pur e alcohol) [address] [facility] Utilities Answer Date Recorded In [...] often do you attend chur ch or jewish services? Never 09/30/2023 Do you belong to any clubs o r organizations such as muslim groups, unions, fraternal or athletic groups, or [...] Total Score - Questions 1-9 0 11/18 [facility] of Occupat ional Health - Occupational [...] place to sleep or slept in a assisted (including now)? No 09/30/2023 Education Answer Date [...] was discontinued on 10/06/2023 by Cynthia Woody, KYA, PRODUCTION CONTROL COORDINATOR ING INSPECTOR documented in this encounter Plan of Treatment Upcoming Encounters Date Type Department Care Team (Late st Contact Info) Description 11/13/2024 8:00 AM NETTING INSPECTOR Procedure Visit [facility] PHYSICIAN [facility] UROLOGY #[address] [place] [address] Davion Alicea MD #[address] [address] 12/18/2024 10:30 AM CDT Office Visit [facility] Medical Group - Family [facility] #2 [place] [address] Cynthia Woody APRN, PRODUCTION CONTROL COORDINATOR [address] [place] [address] 03/10/2025 1:00 PM CDT [facility] [address] [place] [address] Gilmar Bond MD [address] [place] [address] Discharge Disposition: Discharged to home or Selfcare documented as of this encounter Visit Diagnoses Not on filedocumented in this encounter Additional Health Concerns Assessment Noted Time PHQ-9 Depression Total Score: 0 04/12/20 18 2:00 PM CDT documented as of this encounter Care Teams Armature Inspector Relationship Specialty Start Date End Date Martín Cuenca MD [address] [place] [address] PCP - General Family Medicine 10/06/23 02/05/24 Cynthia Woody, FLIGHT SIMULATOR TEACHER, PRODUCTION CONTROL COORDINATOR [address] [place] [address] PCP - General Advanced Practice Nurse 02/07/24 Gorge Morel [place] [address] PCP - General Infectious Disease 10/15/24 Ramin Angeles DO Consulting Physician Gastroenterology 01/14/16 08/20/24 Lincoln Simpson DPM Podiatry 03/30/22 Bairon Ryan MD [address] [place] [address] Consulting Physician Neurology 09/07/23 Larisa Eisenberg APRN, PRODUCTION CONTROL COORDINATOR #2 [facility] [address] [place] [address] Nurse Practitioner Advanced Practice Nurse 01/26/24 Elio Monae MD [address] [place] [address] Consulting Physician Pulmonary Disease 06/05/24 documented as of this encounter
--- OUTSIDE RECORDS SUMMARY | 2024-10-25 16:20 | XMS_ITS | Encounter Summary ---
Author Organization [facility] Address [address] [facility] [place] [address] Phone Care Team Providers Care Can Capper Name Role Phone Ramin Angeles DO Unavailable [phone] Lincoln Simpson DPM Unavailable Unavailable Bairon Ryan MD Unavailable [phone] Larisa Eisenberg SPANISH INTERPRETER/TRANSLATOR, FISH SALTER Unavailable + [phone] Cynthia Woody SPANISH INTERPRETER/TRANSLATOR, FISH SALTER Primary Care Provider + Eilo Monae MD Unavailable Gorge Morel MD Primary Care Provider + [phone] Reason for Visit * Reason Comments Medication Refill Encounter Details Date Type Department Care Team (Late st Contact Info) Description 02/18/2024 Refill [facility] - [facility] [address] [place] [address] Kylie Chawla PAC #[address] [place] [address] Medication Refill Social History Tobacco Use Types Packs/Day Years Used Date Smoking Tobacco: Former Cigarettes 1 22 0 09/18/1969 - 09/18/1991 Smokeless Tobacco: Never Comments:Stopped smoking 30 years ago Alcohol Use Standard Drinks/Week Comments Never 0 (1 standard drink = 0.6 oz pur e alcohol) 1990 stopped [facility] Utilities Answer Date Recorded In the [...] often do you attend chur ch or voodoo services? Never 09/30/2023 Do you belong to any clubs o r organizations such as episcopal groups, unions, fraternal or athletic groups, or [...] Total Score - Questions 1-9 0 11/18 [facility] of Occupat ional Health - Occupational Stress [...] place to sleep or slept in a residential (including now)? No 09/30/2023 Education Answer Date [...] Dept 02/07/24 Office Visit Cynthia Woody APRN, FISH SALTER [facility] 12/29/23 Office Visit Cynthia Woody APRN, NADIRA [facility] 10/06/23 Office Visit Cynthia Woody APRN, NADIRA [facility] 05/15/23 Office Visit Jeniffer [facility]ciaga [facility] 04/05/23 Office Visit Kylie Chawla, [facility] 03/06/23 Telemedicine Jeniffer Burciaga MD [facility] Showing recent visits within past 365 days and meeting all other requirements Future Appointments Date Type Provider Dept 03/11/24 Appointment Cynthia Woody APRN, FISH SALTER [facility] Showing future appointments within next 90 days and meeting all other requirements documented in this encounter Plan of Treatment Upcoming Encounters Date Type Department Care Team (Late st Contact Info) Description 11/13/2024 8:00 AM SALES PERFORMANCE MANAGER Procedure Visit [facility] [address] [place] [address] Davion Alicea MD [address] [address] 12/18/2024 10:30 AM CDT Office Visit [facility] - Family Medicine - [facility] [address] [place] [address] Cynthia Woody APRN, FISH SALTER [address] [place] [address] 03/10/2025 1:00 PM CDT Office Visit [facility] Oncology Services [address] [place] [address] Gilmar Bond MD [address] [place] [address] Discharge Disposition: Discharged to home or Selfcare documented as of this encounter Visit Diagnoses Not on filedocumented in this encounter Additional Health Concerns Assessment Noted Time PHQ-9 Depression Total Score: 0 04/12/20 18 2:00 PM CDT documented as of this encounter Care Teams Can Capper Relationship Specialty Start Date End Date Cynthia Woody APRN, FISH SALTER [address] [place] [address] PCP - General Advanced Practice Nurse 02/07/24 Gorge Morel MD [address] [place] [address] PCP - General Infectious Disease 10/15/24 Ramin Angeles DO Consulting Physician Gastroenterology 01/14/16 08/20/24 Lincoln Simpson DPM Podiatry 03/30/22 Bairon Ryan MD #[address] [place] [address] Consulting Physician Neurology 09/07/23 Larisa Eisenberg APRN, FISH SALTER #2 [facility] [address] [place] [address] Nurse Practitioner Advanced Practice Nurse 01/26/24 Elio Monae MD #[address] [place] [address] Consulting Physician Pulmonary Disease 06/05/24 documented as of this encounter
--- OUTSIDE RECORDS SUMMARY | 2024-10-25 16:20 | XMS_ITS | Encounter Summary ---
Author Organization [facility] Address [address] [facility] [place] [address] Phone Care Team Providers Care Psychologist Research Assistant Name Role Phone Ramin Angeles DO Unavailable [phone] Lincoln Simpson DPM Unavailable Unavailable Bairon Ryan MD Unavailable [phone] Larisa Eisenberg POLICE JUSTICE, ELECTRONIC INSTRUMENT TRADES WORKER Unavailable +[phone] Cynthia Woody POLICE JUSTICE, ELECTRONIC INSTRUMENT TRADES WORKER Primary Care Provider + Elio Monae MD Unavailable Gorge Morel MD Primary Care Provider + [phone] Reason for Visit * Reason Comments Medication Refill Encounter Details Date Type Department Care Team (Late st Contact Info) Description 05/15/2024 Refill [facility] #[address] [place] [address] Martín Cuenca MD #[address] [place] [address] Medication Refill Social History Tobacco Use Types Packs/Day Years Used Date Smoking Tobacco: Former Cigarettes 1 22 0 09/18/1969 - 09/18/1991 Smokeless Tobacco: Never Comments:Stopped smoking 30 years ago Alcohol Use Standard Drinks/Week Comments Never 0 (1 standard drink = 0.6 oz pur e alcohol) 1990 stopped [facility] Utilities Answer Date Recorded In the [...] declined 04/22/2024 How often do you attend baptism or restorationism serv ices? Patient declined 04/22/2024 Do you [...] Total Score - Questions 1-9 0 11/18 [facility] of Occupat ional Health - Occupational Stress [...] place to sleep or slept in a correction (including now)? No 09/30/2023 Housing Stability Vital Sign Answer Jaden e Recorded In the last 12 months, was t here a time when you were not able to pay the mortgage or rent on time? Patient declined 04/22/20 24 Number of Times Moved in the Last Year Not on fi le 04/22/2024 At any time in the past 12 m [facility], were you homeless or living in a correction (including now)? Patient declined 04/22/2024 Education Answer [...] st Contact Info) Description 11/13/2024 8:00 AM HEARING DOG TRAINER Procedure Visit [facility]IAN [facility] UROLOGY #2 [place] [address] Davion Alicea MD #[address] [address] 12/18/2024 10:30 AM CDT Office Visit [facility] Medical Group - Family [facility] #2 [place] [address] Cynthia Woody, POLICE JUSTICE, ELECTRONIC INSTRUMENT TRADES WORKER #[address] [place] [address] 03/10/2025 1:00 PM CDT [facility] [address] [place] [address] Gilmar Bond MD [address] [place] [address] Discharge Disposition: Discharged to home or Selfcare documented as of this encounter Visit Diagnoses Diagnosis Rhinitis, unspecified type documented in this encounter Additional Health Concerns Assessment Noted Time PHQ-9 Depression Total Score: 0 04/12/20 18 2:00 PM CDT documented as of this encounter Care Teams Psychologist Research Assistant Relationship Specialty Start Date End Date Cynthia Woody APRN, ELECTRONIC INSTRUMENT TRADES WORKER #[address] [place] [address] PCP - General Advanced Practice Nurse 02/07/24 Gorge Morel [place] [address] PCP - General Infectious Disease 10/15/24 Ramin Angeles DO Consulting Physician Gastroenterology 01/14/16 08/20/24 Lincoln Simpson DPM Podiatry 03/30/22 Bairon Ryan MD #[address] [place] [address] Consulting Physician Neurology 09/07/23 Larisa Eisenberg APRN, ELECTRONIC INSTRUMENT TRADES WORKER #2 [facility] [address] [place] [address] Nurse Practitioner Advanced Practice Nurse 01/26/24 Elio Monae MD #[address] [place] [address] Consulting Physician Pulmonary Disease 06/05/24 documented as of this encounter
--- OUTSIDE RECORDS SUMMARY | 2024-10-25 16:20 | XMS_ITS | Encounter Summary ---
Author Organization [facility] Address [address] [facility] [place] [address] Phone Care Team Providers Care Butt Maker Name Role Phone Ramin Angeles DO Unavailable [phone] Jeniffer Burciaga MD Primary Care Provider [phone] Lizz Mccauley RN Unavailable Unavailable Lincoln Simpson DPM Unavailable Unavailable Provider, None Primary Care Provider Unavailabl e Martín Cuenca MD Primary Care Provider [phone] Bairon Ryan MD Unavailable [phone] Larisa Eisenberg TRUCK DRIVER HELPER, TAPE FOLDING MACHINE OPERATOR Unavailable + [phone] Cynthia Woody TRUCK DRIVER HELPER, TAPE FOLDING MACHINE OPERATOR Primary Care Provider + Elio Monae MD Unavailable Gorge Morel MD Primary Care Provider + [phone] Encounter Details Date Type Department Care Team (Late st Contact Info) Description 07/02/2021 [facility] [address] [place] [address] Kirill Yañez MD [address] [place] [address] Social History Tobacco Use Types Packs/Day Years [...] st Contact Info) Description 11/13/2024 8:00 AM CODING CLERKS SUPERVISOR Procedure Visit [facility] PHYSICIAN [facility] #2 [place] [address] Davion Alicea MD #2 [facility] [address] [place] [address] 12/18/2024 10:30 AM CDT Office Visit [facility] Medical Group - Family [facility] #2 [place] [address] Cynthia Woody APRN, TAPE FOLDING MACHINE OPERATOR #[address] [place] [address] 03/10/2025 1:00 PM CDT [facility] [address] [place] [address] Gilmar Bond MD [address] [place] [address] Discharge Disposition: Discharged to home or Selfcare documented as of this encounter Visit Diagnoses Not on filedocumented in this encounter Additional Health Concerns Assessment Noted Time PHQ-9 Depression Total Score: 0 04/12/20 18 2:00 PM CDT documented as of this encounter Care Teams Butt Maker Relationship Specialty Start Date End Date Jeniffer Burciaga MD #2 [place] [address] PCP - General Family Medicine 02/10/16 09/06/23 Provider, [facility] PCP - General 09/07/23 10/05/23 Martín Cuenca MD #1 [place] [address] PCP - General Family Medicine 10/06/23 02/05/24 Cynthia Woody, TRUCK DRIVER HELPER, TAPE FOLDING MACHINE OPERATOR #[address] [place] [address] PCP - General Advanced Practice Nurse 02/07/24 Gorge Morel MD [address] [address] PCP - General Infectious Disease 10/15/24 Ramin Angeles DO Consulting Physician Gastroenterology 01/14/16 08/20/24 Lizz Mccauley RN [place] Tattoo[place] 12/15/21 08/07/22 Lincoln Simpson, DPM Podiatry 03/30/22 Bairon Ryan MD #[address] [place] [address] Consulting Physician Neurology 09/07/23 Larisa Eisenberg TRUCK DRIVER HELPER, TAPE FOLDING MACHINE OPERATOR #[address] [address] Nurse Practitioner Advanced Practice Nurse 01/26/24 Elio Monae MD #[address] [place] [address] Consulting Physician Pulmonary Disease 06/05/24 documented as of this encounter
--- OUTSIDE RECORDS SUMMARY | 2024-10-25 16:20 | XMS_ITS | Clinical Summary ---
Author Organization [facility] Address [address] [facility], [address] [address] Phone Care Team Providers Care Electric Meter Repairer Apprentice Name Role Phone Lincoln Simpson DPNicko Unavailable Unavailable Bairon Ryan MD Unavailable [phone] Elio Monae MD Unavailable Gorge Morel MD Primary Care Provider [phone] Allergies Active Allergy Reactions Criticality Noted Date [...] Follow-Up [facility] [address]2 [place] [address] Ovi Trinidad APRN, ELECTRICAL ENGINEER E. coli UTI (Primary Dx) 10/21/2024 Refill [facility] #2 [place] [address] Kylie Chawla, NISHA Medication Refill 10/15/2024 10:45 AM HABILITATION TRAINING SPECIALIST Office Visit [facility] UROLOGY #2 [place] [address] Ovi Trinidad APRN, ELECTRICAL ENGINEER Microscopic hematuria (Primary Dx); Abnormal urinalysis Discharge Disposition: Discharged to home or Selfcare 10/15/2024 Travel 09/26/2024 Telephone [facility] UR[facility] #2 [place] [address] Carroll Bradford MD 09/20/2024 Results Follow-Up [facility] Internal Medicine [facility] [address] [place] [address] Cynthia Woody APRN, ELECTRICAL ENGINEER 09/16/2024 12:38 PM HABILITATION TRAINING SPECIALIST - 09/16/2024 11:59 PM HABILITATION TRAINING SPECIALIST Hospital Encounter [facility] Diagnostic Radiology [address] [place] [address] Cynthia Woody, RN CARE TRANSITION, ELECTRICAL ENGINEER Discharge Disposition: Discharged to home or Selfcare 09/16/2024 12:30 PM HABILITATION TRAINING SPECIALIST - 09/16/2024 12:37 PM HABILITATION TRAINING SPECIALIST Hospital Encounter [facility] Diagnostic Radiology [address] [place] [address] Cynthia Woody, RN CARE TRANSITION, ELECTRICAL ENGINEER Discharge Disposition: Discharged to home or Selfcare 09/16/2024 11:15 AM HABILITATION TRAINING SPECIALIST Office Visit [facility] [address] [place] [address] Cynthia Woody, RN CARE TRANSITION, ELECTRICAL ENGINEER Lumbar pain with radiation down left leg (Primary Dx) Discharge Disposition: Discharged to home or Selfcare 09/16/2024 Travel 09/09/2024 1:00 PM HABILITATION TRAINING SPECIALIST Office Visit [facility] Oncology Services [address] [place] [address] Gilmar Bond MD Hiatal hernia (Primary Dx); Iron deficiency anemia due to sideropenic dysphagia Discharge Disposition: Discharged to home or Selfcare 09/09/2024 Travel 09/04/2024 Results Follow-Up [facility] [address] [place] [address] Cynthia Woody APRN, ELECTRICAL ENGINEER Hematuria, unspecified type (Primary Dx) 09/04/2024 Results Follow-Up [facility] [address] [place] [address] Cynthia Woody APRN, ELECTRICAL ENGINEER 09/02/2024 11:00 AM HABILITATION TRAINING SPECIALIST [facility] [address] [place] [address] Gilmar Bond MD Anemia, unspecified type Discharge Disposition: Discharged to home or Selfcare 09/02/2024 Travel 08/26/2024 9:45 AM HABILITATION TRAINING SPECIALIST - 08/26/2024 11:59 PM HABILITATION TRAINING SPECIALIST Hospital Encounter [facility] Ultrasound [address] [place] [address] Cynthia Woody, RN CARE TRANSITION, ELECTRICAL ENGINEER Discharge Disposition: Discharged to home or Selfcare 08/26/2024 Travel 08/21/2024 9:55 AM HABILITATION TRAINING SPECIALIST - 08/21/2024 11:59 PM HABILITATION TRAINING SPECIALIST Hospital Encounter [facility] Mammography [address] [place] [address] Cynthia Woody, RN CARE TRANSITION, ELECTRICAL ENGINEER Discharge Disposition: Discharged to home or Selfcare 08/21/2024 Telephone [facility] [address] [place] [address] Cynthia Woody APRN, NADIRA Results; Referral 08/19/2024 2:50 PM HABILITATION TRAINING SPECIALIST - 08/19/2024 11:59 PM HABILITATION TRAINING SPECIALIST Hospital Encounter [facility] Diagnostic Radiology 1 [place] [address] Cynthia Woody, KYA, NADIRA Discharge Disposition: Discharged to home or Selfcare 08/19/2024 1:45 PM HABILITATION TRAINING SPECIALIST [facility]2 [facility] [place] [address] Cynthia Woody APRN, NADIRA Right shoulder pain, unspecified chronicity (Primary Dx); Anterolisthesis of cervical spine; Urinary urgency; Need for hepatitis C screening test; Essential (primary) hypertension; Low bone mass; Ingrowing nail; Hematuria, unspecified type Discharge Disposition: Discharged to home or Selfcare 08/19/2024 Travel 08/19/2024 [facility] [place] [address] Kylie Chawla PAC Medication Refill 07/30/2024 [facility] [place] [address] Cynthia Woody APRN, NADIRA Medication Refill from [...] Valent 0 Pneumococcal conjugate PCV20 , polysaccharide HMZ356 conjugate, adjuvant, PF 11/07/2023 RSV, Recombinant, Protein [...] 0.6 oz pur e alcohol) 1990 stopped [facility] Utilities Answer Date Recorded In the [...] declined 04/22/2024 How often do you attend scientologist or jehovah's witness serv ices? Patient declined 04/22/2024 Do you belong to any clubs o r organizations such as scientologist groups, unions, fraternal or athletic groups, or [...] Total Score - Questions 1-9 0 11/18 [facility] - Occupational Stress [...] in a fpc (including now)? No 09/30/2023 Housing Stability Vital Sign Answer Jaden e Recorded In the last 12 months, was t here a time when you were not able to pay the mortgage or rent on time? Patient declined 04/22/20 24 Number of Times Moved in the Last Year Not on fi le 04/22/2024 At any time in the past 12 m [facility], were you homeless or living in a fpc (including now)? Patient declined 04/22/2024 Education Answer [...] Comments Blood Pressure 155/88 10/15/2024 10:46 AM HABILITATION TRAINING SPECIALIST Pulse 80 10/15/2024 10:46 AM HABILITATION TRAINING SPECIALIST Temperature 36.4 C (97.6 F) 09/16/2024 11:43 AM HABILITATION TRAINING SPECIALIST Respiratory Rate 16 10/15/2024 10:46 AM HABILITATION TRAINING SPECIALIST Oxygen Saturation 99% 10/15/2024 10:46 AM HABILITATION TRAINING SPECIALIST Inhaled Oxygen Concentration - - Weight 68.5 kg (151 lb) 10/15/2024 10:46 AM HABILITATION TRAINING SPECIALIST Height 160 cm (5' 3 ) 10/15/2024 10:46 AM HABILITATION TRAINING SPECIALIST Body Mass Index 26.75 10/15/2024 10:46 AM HABILITATION TRAINING SPECIALIST Plan of Treatment Upcoming Encounters Date Type Department Care Team (Late st Contact Info) Description 11/13/2024 8:00 AM HABILITATION TRAINING SPECIALIST Procedure Visit [facility] #[address] [place] [address] Davion Alicea MD #[address] [address] 12/18/2024 10:30 AM CDT Office Visit [facility] #[address] [place] [address] Cynthia Woody APRN, ELECTRICAL ENGINEER [address] [place] [address] 03/10/2025 1:00 PM CDT Office Visit [facility] On[facility] [address] [place] [address] Gilmar Bond MD [address] [place] [address] Discharge Disposition: Discharged to home or Selfcare [...] Comments CULTURE, URINE Routine 10/15/2024 11:32 AM HABILITATION TRAINING SPECIALIST Abnormal urinalysis POCT UA AUTOMATED W/O MICRO Routine 10/15/2024 11:04 AM HABILITATION TRAINING SPECIALIST Microscopic hematuria RENATA,POST-VOID RES,US,NON-IMAGING Routine 10/15/2024 10:45 AM HABILITATION TRAINING SPECIALIST Microscopic hematuria XR HIP 2 VIEWS UNILATERAL LEFT Routine 09/16/2024 12:51 PM HABILITATION TRAINING SPECIALIST Lumbar pain with radiation down left leg XR LUMBAR SPINE MINIMUM 4 VIEWS Routine 09/16/2024 12:51 PM HABILITATION TRAINING SPECIALIST Lumbar pain with radiation down left leg CBC WITH AUTO DIFFERENTIAL Routine 09/02/2024 10:47 AM HABILITATION TRAINING SPECIALIST Anemia, unspecified type FREE KAPPA & LAMBDA LIGHT CHAINS SERUM Routine 09/02/2024 10:47 AM HABILITATION TRAINING SPECIALIST Anemia, unspecified type IMMUNOFIXATION W/ ELECTROPHORESIS SERUM Routine 09/02/2024 10:47 AM HABILITATION TRAINING SPECIALIST Anemia, unspecified type LACTATE DEHYDROGENASE (LD) Routine 09/02/2024 10:47 AM HABILITATION TRAINING SPECIALIST Anemia, unspecified type RETICULOCYTE COUNT (RETIC) Routine 09/02/2024 10:47 AM HABILITATION TRAINING SPECIALIST Anemia, unspecified type IRON,TRANSFERN,CALC.TIB C,%SAT Routine 09/02/2024 10:47 AM HABILITATION TRAINING SPECIALIST Anemia, unspecified type FERRITIN Routine 09/02/2024 10:47 AM HABILITATION TRAINING SPECIALIST Anemia, unspecified type COMPLETE BLOOD COUNT (CBC) WITH DIFF Routine 09/02/2024 10:47 AM HABILITATION TRAINING SPECIALIST Anemia, unspecified type US RENAL COMPLETE Routine 08/26/2024 10: 02 AM HABILITATION TRAINING SPECIALIST Hematuria, unspecified type BSASAM SCREENING BILATERAL DIGITAL W CAD W TADEO Routine 08/21/2024 10:15 AM HABILITATION TRAINING SPECIALIST Screening mammogram for breast cancer HEPATITIS C ANTIBODY Routine 08/21/2024 Need for hepatitis C screening test VITAMIN D, 25 HYDROXY TOTAL Routine 08/21/2024 Low bone mass CMP (COMPREHENSIVE METABOLIC PANEL) Routine 08/21/2024 Essential (primary) hypertension LIPID PANEL Routine 08/21/2024 Essential (primary) hypertension XR SHOULDER COMPLETE RIGHT Routine 08/19/2024 3:09 PM HABILITATION TRAINING SPECIALIST Right shoulder pain, unspecified chronicity URINALYSIS REFLEX IF INDICATED BY ABNORMAL RESULTS Routine 08/19/2024 2:46 PM HABILITATION TRAINING SPECIALIST Urinary urgency STOOL, OCCULT BLOOD IMMUNOASSAY (IFOB) Routine 03/18/2024 1:33 PM CDT Anemia, unspecified type [facility] BONE DENSITOMETRY AXIAL SKELETON Routine 01/22/2021 1:55 PM CDT Menopause from Last 3 Months or Most Recently Relevant to Health Maintenance Results * CULTURE, URINE (10/15/2024 11:32 AM HABILITATION TRAINING SPECIALIST) CULTURE RESULTS ESCHERICHIA COLI 10/17/2024 3:48 PM HABILITATION TRAINING SPECIALIST [facility] Culture URINE SPECIMEN COLLECTION, CLEAN CATCH / Unknown Non-Phlebotomy Collection / Unknown 10/15/2024 11:32 AM HABILITATION TRAINING SPECIALIST 10/15/2024 11:32 AM HABILITATION TRAINING SPECIALIST Narrative Organism Antibiotic Method Susceptibility Escherichia coli [...] I >=320 mcg/ml: Resistant us Ovi Trinidad RN CARE TRANSITION, ELECTRICAL ENGINEER MICROBIOLOGY - GENERAL ORDERABLES Final Result [facility] [address] [place] [address], * (ABNORMAL) POCT UA AUTOMATED W/O MICRO (10/15/2024 11:04 AM HABILITATION TRAINING SPECIALIST) POC UA SPECIFIC GRAVITY 1.015 URINE PH [...] Negative mg/dL POC URINE BLOOD INSTRUMENT 50 Nnai/uL(A) Negative Nani/uL POC URINE COLOR Yellow POC URINE CLARITY Clear 10/15/2024 11:0 4 AM HABILITATION TRAINING SPECIALIST us Ovi Trinidad APRN, CNP POINT OF CARE TESTING (MANUAL) Final Result * RENATA,POST-VOID RES,US,NON-IMAGING (10/15/2024 10:45 AM HABILITATION TRAINING SPECIALIST) Narrative Ovi Trinidad APRN, CNP - 10/15/2024 10:45 AM HABILITATION TRAINING SPECIALIST Ovi Trinidad APRN, CNP 10/15/2024 11:31 AM POCT Bladder Scan collected per standing order of Kade Trinidad on 10/15/2024 PVR= 0 ML Ovi Trinidad APRN, CNP MA - SURGERY Final Result * XR HIP 2 VIEWS UNILATERAL LEFT (09/16/2024 12:51 PM HABILITATION TRAINING SPECIALIST) Anatomical Region Laterality Modality LOWER EXTREMITY, hip Left Digital Rad iography 09/16/2024 8:17 PM HABILITATION TRAINING SPECIALIST Impressions 09/16/2024 8:20 PM HABILITATION TRAINING SPECIALIST IMPRESSION: Unchanged mild T12 and moderate L1 compression deformities. 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 Minimal left hip osteoarthritis. Narrative 09/16/2024 8:20 PM HABILITATION TRAINING SPECIALIST EXAM DESCRIPTION: XR LUMBAR SPINE MINIMUM 4 [...] Estuardo Quach M.D. MF: APRIL Report ID: [id number] Reading Location: [place] [address] Procedure Note Estuardo Quach MD - 09/16/2024 [...] Estuardo Quach M.D. MF: APRIL Report ID: [id number] Reading Location: [id number] IMPRESSION: Unchanged mild T12 and moderate L1 compression deformities. 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 Minimal left hip osteoarthritis. us Cynthia Maharaj Bong RN CARE TRANSITION, ELECTRICAL ENGINEER IMG DIAGNOSTIC ORDERABLE S Final Result * XR LUMBAR SPINE MINIMUM 4 VIEWS (09/16/2024 12:51 PM HABILITATION TRAINING SPECIALIST) Anatomical Region Laterality Modality Spine, L-spine N/A Digital Radiogra phy 09/16/2024 8:17 PM HABILITATION TRAINING SPECIALIST Impressions 09/16/2024 8:20 PM HABILITATION TRAINING SPECIALIST IMPRESSION: Unchanged mild T12 and moderate L1 compression deformities. 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 Minimal left hip osteoarthritis. Narrative 09/16/2024 8:20 PM HABILITATION TRAINING SPECIALIST EXAM DESCRIPTION: XR LUMBAR SPINE MINIMUM 4 [...] Estuardo Quach M.D. MF: APRIL Report ID: [id number] Reading Location: [id number] Procedure Note Estuardo Quach MD - 09/16/2024 [...] Estuardo Quach M.D. MF: APRIL Report ID: [id number] Reading Location: [place] [address] IMPRESSION: Unchanged mild T12 and moderate L1 compression deformities. 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 Minimal left hip osteoarthritis. Cynthia Woody RN CARE TRANSITION, ELECTRICAL ENGINEER IMG DIAGNOSTIC ORDERABLE S Final Result * IRON,TRANSFERN,CALC.TIBC,%SAT (09/02/2024 10:47 AM HABILITATION TRAINING SPECIALIST) IRON 56 25 - 156 mcg/dL 09/02/2024 12:39 PM HABILITATION TRAINING SPECIALIST [facility] TRANSFERRIN 244 173 - 360 mg/dL 09/02/2024 12:39 PM HABILITATION TRAINING SPECIALIST [facility] TIBC, CALCULATED 305 265 - 497 mcg/dL 09/02/2024 12:39 PM HABILITATION TRAINING SPECIALIST [facility] % SATURATION * 18 15 - 62 % 09/02/2024 12:39 PM HABILITATION TRAINING SPECIALIST [facility] Blood Venipuncture / Unknown 09/02/2024 10:47 AM HABILITATION TRAINING SPECIALIST 09/02/2024 10:47 AM HABILITATION TRAINING SPECIALIST us Gilmar Bond MD CHEMISTRY ORDERABLES Fin al Result [facility] #[address] [place] [address] * (ABNORMAL) CBC WITH AUTO DIFFERENTIAL (09/02/2024 10:47 AM HABILITATION TRAINING SPECIALIST) WBC 5.08 4.00 - 12.00 10(3)/[facility] 09/02/2024 11:48 AM HABILITATION TRAINING SPECIALIST [facility] RBC 4.36 3.80 - 5.30 10(6)/[facility] 09/02/2024 11:48 AM [facility] HEMOGLOBIN (HGB) 13.0 12.0 - 15.8 g/dL 09/02/2024 11:48 AM HABILITATION TRAINING SPECIALIST [facility] HEMATOCRIT (HCT) 39.3 36.0 - 47.0 % 09/02/2024 11:48 AM HABILITATION TRAINING SPECIALIST [facility] MCV 90.1 82.0 - 96.0 fL 09/02/2024 11:48 AM HABILITATION TRAINING SPECIALIST [facility] MCH 29.8 26.0 - 34.0 pg 09/02/2024 11:48 AM [facility] MCHC 33.1 31.0 - 36.0 g/dL 09/02/2024 11:48 AM [facility] PLATELET COUNT 271 140 - 440 10(3)/[facility] 09/02/2024 11:48 AM [facility] RDW 16.7(H) 11.8 - 15.5 % 09/02/2024 11:48 AM HABILITATION TRAINING SPECIALIST [facility] MPV 10.9 9.7 - 12.4 fL 09/02/2024 11:48 AM HABILITATION TRAINING SPECIALIST [facility] NEUTROPHILS 52.2 47.0 - 73.0 % 09/02/2024 11:48 AM HABILITATION TRAINING SPECIALIST [facility] LYMPHOCYTES 35.0 18.0 - 42.0 % 09/02/2024 11:48 AM HABILITATION TRAINING SPECIALIST [facility] MONOCYTES 10.4 4.0 - 12.0 % 09/02/2024 11:48 AM HABILITATION TRAINING SPECIALIST [facility] EOSINOPHILS 1.8 0.0 - 5.0 % 09/02/2024 11:48 AM HABILITATION TRAINING SPECIALIST [facility] BASOPHILS 0.6 0.0 - 1.0 % 09/02/2024 11:48 AM HABILITATION TRAINING SPECIALIST [facility] ABSOLUTE NEUTROPHILS 2.65 1.60 - 7.70 10(3)/[facility] 09/02/2024 11:48 AM HABILITATION TRAINING SPECIALIST [facility] ABSOLUTE LYMPHOCYTES 1.78 1.30 - 3.20 10(3)/[facility] 09/02/2024 11:48 AM HABILITATION TRAINING SPECIALIST [facility] ABSOLUTE MONOCYTES 0.53 0.20 - 1.00 10(3)/[facility] 09/02/2024 11:48 AM [facility] ABSOLUTE EOSINOPHIL 0.09 0.00 - 0.40 10(3)/[facility] 09/02/2024 11:48 AM [facility] ABSOLUTE BASOPHILS 0.03 0.00 - 0.10 10(3)/[facility] 09/02/2024 11:48 AM [facility] NRBC PER 100 WBC 0 09/02/20 24 11:48 AM [facility] Blood Venipuncture / Unknown 09/02/2024 10:47 AM HABILITATION TRAINING SPECIALIST 09/02/2024 10:47 AM [facility] us Gilmar Bond MD HEMATOLOGY ORDERABLES Fi nal Result [facility] #[address] [place] [address] * (ABNORMAL) FREE KAPPA & LAMBDA LIGHT CHAINS SERUM (09/02/2024 10:47 AM HABILITATION TRAINING SPECIALIST) Free [place] Lt Chn 22.33(H) 3.30 - 19.40 mg/L 09/04/2024 10:17 AM HABILITATION TRAINING SPECIALIST [facility] Free Lambda Lt Chn 12.91 5.71 - 26.30 mg/L 09/04/2024 10:17 AM HABILITATION TRAINING SPECIALIST [facility] free marty beck ratio 1.73(H) 0.26 - 1.65 09/04/2024 10:17 AM HABILITATION TRAINING SPECIALIST [facility] Blood Venipuncture / Unknown 09/02/2024 10:47 AM HABILITATION TRAINING SPECIALIST 09/02/2024 10:47 AM HABILITATION TRAINING SPECIALIST Gilmar Bond MD CHEMISTRY ORDERABLES Fin al Result [facility] [address] [place] [address], [place] * RETICULOCYTE COUNT (RETIC) (09/02/2024 10:47 AM HABILITATION TRAINING SPECIALIST) RETICULOCYTES 1.5 0.5 - 2.0 % 09/02/2024 11:48 AM HABILITATION TRAINING SPECIALIST [facility] Blood Venipuncture / Unknown 09/02/2024 10:47 AM HABILITATION TRAINING SPECIALIST 09/02/2024 10:47 AM HABILITATION TRAINING SPECIALIST Gilmar Bond MD HEMATOLOGY ORDERABLES Fi nal Result Performing Organization Address City/[facility]/ZIP Co de Phone Number [facility] [address] [place] [address] * LACTATE DEHYDROGENASE (LD) (09/02/2024 10:47 AM HABILITATION TRAINING SPECIALIST) LDH 220 125 - 220 U/L 09/02/2024 12:39 PM HABILITATION TRAINING SPECIALIST [facility] Blood Venipuncture / Unknown 09/02/2024 10:47 AM HABILITATION TRAINING SPECIALIST 09/02/2024 10:47 AM HABILITATION TRAINING SPECIALIST Gilmar Bond MD CHEMISTRY ORDERABLES Fin al Result Performing Organization Address City/[facility]/ZIP Co de Phone Number [facility] [address] [place] [address] * (ABNORMAL) IMMUNOFIXATION W/ ELECTROPHORESIS SERUM (09/02/2024 10:47 AM HABILITATION TRAINING SPECIALIST) Pathologist [facility] TOTAL PROTEIN 7.2 6.3 - 8.2 g/dL 09/03/2024 3:57 PM [facility] % ALBUMIN 54.6(L) 55.8 - 66.7 % 09/03/2024 3:57 PM [facility] ALBUMIN SERUM 3.9 2.5 - 5.4 g/dL 09/03/2024 3:57 PM [facility] % ALPHA 1 GLOBULIN 3.9 2.9 - 4.9 % 09/03/2024 3:57 PM [facility] ALPHA 1 0.3 0.2 - 0.4 g/dL 09/03/2024 3:57 PM [facility] % ALPHA 2 GLOBULIN 14.0(H) 7.1 - 11.8 % 09/03/2024 3:57 PM [facility] ALPHA 2 1.0 0.5 - 1.0 g/dL 09/03/2024 3:57 PM [facility] % BETA 13.4(H) 8.4 - 13.1 % 09/03/2024 3:57 PM [facility] BETA-GLOBULIN 1.0 0.5 - 1.1 g/dL 09/03/2024 3:57 PM [facility] % GAMMA GLOBULIN 14.3 11.1 - 18.8 % 09/03/2024 3:57 PM [facility] GAMMA 1.0 0.7 - 1.5 g/dL 09/03/2024 3:57 PM [facility] IMMUNOGLOBULIN G 959 552 - 1,631 mg/dL 09/03/2024 3:57 PM [facility] IMMUNOGLOBULIN A 143 69 - 517 mg/dL 09/03/2024 3:57 PM [facility] IMMUNOGLOBULIN M 122 33 - 293 mg/dL 09/03/2024 3:57 PM [facility] INTERPRETATION SERUM No abnormal protein band is detected by serum protein electrophoresis. Serum immunofixation electrophoresis is negative for monoclonal immunoglobulins. Reviewed by Peggy Greene, Ph.D. 09/03/2024 3:57 PM HABILITATION TRAINING SPECIALIST [facility] A/G RATIO, SERUM 1.2 09/03/20 3:57 PM HABILITATION TRAINING SPECIALIST [facility] Blood Venipuncture / Unknown 09/02/2024 10:47 AM HABILITATION TRAINING SPECIALIST 09/02/2024 10:47 AM HABILITATION TRAINING SPECIALIST Narrative [facility] - 09/03/2024 3:57 PM HABILITATION TRAINING SPECIALIST Reviewed By Brooks Shi M.D. us Gilmar Bond MD CHEMISTRY ORDERABLES Fin al Result [facility] [address] [place] [address], * FERRITIN (09/02/2024 10:47 AM HABILITATION TRAINING SPECIALIST) FERRITIN 119 5 - 204 ng/mL 09/02/2024 12:51 PM HABILITATION TRAINING SPECIALIST [facility] Blood Venipuncture / Unknown 09/02/2024 10:47 AM HABILITATION TRAINING SPECIALIST 09/02/2024 10:47 AM HABILITATION TRAINING SPECIALIST us Gilmar Bond MD CHEMISTRY ORDERABLES Fin al Result Performing Organization Address City/[facility] Co de Phone Number [facility] [address] [place] [address] * US RENAL COMPLETE (08/26/2024 10:02 AM HABILITATION TRAINING SPECIALIST) Anatomical Region Laterality Modality , Abdomen N/A Ultrasound 08/30/2024 6:36 AM HABILITATION TRAINING SPECIALIST Impressions 08/30/2024 6:39 AM HABILITATION TRAINING SPECIALIST IMPRESSION: Normal renal ultrasound. Narrative 08/30/2024 6:39 AM HABILITATION TRAINING SPECIALIST EXAM DESCRIPTION: US RENAL COMPLETE REASON FOR [...] Neo Gill M.D. CH: BASSEM Report ID: [id number] Reading Location: [id number] Procedure Note Neo Gill Jr., MD - 08/30/2024 EXAM DESCRIPTION: [...] Neo Gill M.D. CH: BASSEM Report ID: [id number] Reading Location: [id number] IMPRESSION: Normal renal ultrasound. us Cynthia Woody RN CARE TRANSITION, ELECTRICAL ENGINEER IMG US ORDERABLES Final Result * BASSAM SCREENING BILATERAL DIGITAL W CAD W TADEO (08/21/2024 10:15 AM HABILITATION TRAINING SPECIALIST) Anatomical Region Laterality Modality breast Bilateral Mammography 08/21/2024 10:1 9 AM HABILITATION TRAINING SPECIALIST Narrative 08/22/2024 10:49 AM HABILITATION TRAINING SPECIALIST - BASSAM SCREENING BILATERAL DIGITAL W CAD [...] to exams dated: 12/07/2021, 06/09/2020, and 03/26/2019 [facility]. BREAST TISSUE:There are scattered areas of [...] next screening exam. Electronically signed by: Beatriz Carlisle M.D. /salome:08/21/2024 22:41:13 Research Environmental Engineer(s): RT Daquan(R)(M), [facility] letter sent: Normal Exam Reading location: [...] to exams dated: 12/07/2021, 06/09/2020, and 03/26/2019 [facility]. BREAST TISSUE:There are scattered areas of [...] next screening exam. Electronically signed by: Beatriz kwok/[email or web address]:08/21/2024 22:41:13 Research Environmental Engineer(s): Marie Vaughn RT(R)(M), [facility] letter sent: Normal Exam Reading location: [facility] Mammogram BI-RADS: Category 1: Negative us Cynthia Woody APRN, ELECTRICAL ENGINEER IMG MAMMO ORDERABLES Fin al Result * VITAMIN D, 25 HYDROXY TOTAL (08/21/2024) Blood 08/21/2024 Result [facility] Cynthia Woody APRN, ELECTRICAL ENGINEER CHEMISTRY ORDERABLES Fin al Result * LIPID PANEL (08/21/2024) Blood 08/21/2024 Result [facility] Cynthia Woody APRN, ELECTRICAL ENGINEER CHEMISTRY ORDERABLES Fin al Result * HEPATITIS C ANTIBODY (08/21/2024) Blood 08/21/2024 Result [facility] Cynthia Woody APRN, ELECTRICAL ENGINEER CHEMISTRY ORDERABLES Fin al Result * CMP (COMPREHENSIVE METABOLIC PANEL) (08/21/2024) Blood 08/21/2024 Result [facility] Cynthia Woody APRN, ELECTRICAL ENGINEER CHEMISTRY ORDERABLES Fin al Result * XR SHOULDER COMPLETE RIGHT (08/19/2024 3:09 PM HABILITATION TRAINING SPECIALIST) Anatomical Region Laterality Modality UPPER EXTREMITY, shoulder Right Digita l Radiography 08/21/2024 9:28 AM HABILITATION TRAINING SPECIALIST Impressions 08/21/2024 9:31 AM HABILITATION TRAINING SPECIALIST IMPRESSION: No acute osseous abnormality. Mild osteoarthritic changes of the acromioclavicular joint. Narrative 08/21/2024 9:31 AM HABILITATION TRAINING SPECIALIST EXAM DESCRIPTION: XR SHOULDER COMPLETE RIGHT REASON [...] Abdirashid Madrigal M.D. AM: AM Report ID: [id number] Reading Location: [id number] Procedure Note Abdirashid Madrigal MD - 08/21/2024 [...] Abdirashid Madrigal M.D. AM: AM Report ID: [id number] Reading Location: [id number] IMPRESSION: No acute osseous abnormality. Mild osteoarthritic changes of the acromioclavicular joint. Cynthia Maharaj Bong RN CARE TRANSITION, ELECTRICAL ENGINEER IMG DIAGNOSTIC ORDERABLE S Final Result * (ABNORMAL) URINALYSIS REFLEX IF INDICATED BY ABNORMAL RESULTS (08/19/2024 2:46 PM HABILITATION TRAINING SPECIALIST) SPECIFIC GRAVITY 1.005 1.003 - 1.030 08/19/2024 4:53 PM HABILITATION TRAINING SPECIALIST [facility] URINE PH 7.0 5.0 - 9.0 08/19/2024 4:53 PM HABILITATION TRAINING SPECIALIST [facility] WBC ESTERASE Negative Negative 08/19/2024 4:53 PM HABILITATION TRAINING SPECIALIST [facility] NITRITE Negative Negative 08/19/2024 4:53 PM [facility] PROTEIN, RANDOM URINE Negative Negative 08/19/2024 4:53 PM [facility] URINE GLUCOSE, QUAL Negative Negative 08/19/2024 4:53 PM [facility] URINE KETONES Negative Negative 08/19/2024 4:53 PM [facility] UROBILINOGEN Normal Normal mg/dL 08/19/2024 4:53 PM [facility] URINE BLOOD 10 /uL(A) Negative nani/ul 08/19/2024 4:53 PM [facility] URINALYSIS COLOR Yellow 08/19/20 4:53 PM [facility] URINALYSIS CLARITY Clear 08/19/2024 4:53 PM [facility] WBC (Urine) Negative Negative, 0-5 /hpf 08/19/2024 4:53 PM [facility] URINE RBC'S 11-20(A) Negative, 0-2 /hpf 08/19/2024 4:53 PM [facility] EPITHELIAL CELLS Small amount /lpf 2023 4:53 PM [facility] BACTERIA, URINE Negative Negative /hpf 08/19/2024 4:53 PM [facility] Urine URINE SPECIMEN COLLECTION, CLEAN CATCH / Unknown Non-Phlebotomy Collection / Unknown 08/19/2024 2:46 PM HABILITATION TRAINING SPECIALIST 08/19/2024 2:46 PM HABILITATION TRAINING SPECIALIST Cynthia Woody APRN, ELECTRICAL ENGINEER URINE ORDERABLES Final R esult [facility] [address] [place] [address] * STOOL, OCCULT BLOOD IMMUNOASSAY (IFOB) (03/18/2024 1:33 PM CDT) OCCULT BLOOD - IFOB Negative Negative 03/18/2024 9:42 PM CDT [facility] Other STOOL SPECIMEN / Unknown Non-Phlebotomy Collection / Unknown 03/18/2024 1:33 PM CDT 03/18/2024 3:00 PM CDT Cynthia Woody APRN, NADIRA BODY FLUIDS & STOOLS ORD ERABLES Final Result Performing Organization Address City/[facility]/ZIP Co de Phone Number [facility] [address] [place] [address], [place] * [facility] BONE DENSITOMETRY AXIAL SKELETON (01/22/2021 1:55 PM [...] Narrative 01/22/2021 2:17 PM CDT EXAM DESCRIPTION: [facility] BONE DENSITOMETRY AXIAL SKELETON REASON FOR STUDY: 70 y/o year old F with given history of screening. Radar Operator/Model: MyClean (S/N [id number]) CLINICAL INFORMATION: Current height: 5 foot 5 [...] Daniel Mata M.D. AG: DAPHNE Report ID: [id number] Reading Location: [id number] Procedure Note Luis Daneil Mata MD - 01/22/2021 EXAM DESCRIPTION: [facility] BONE DENSITOMETRY AXIAL SKELETON REASON FOR STUDY: 70 y/o year old F with given history of screening. Radar Operator/Model: MyClean (S/N [id number]) CLINICAL INFORMATION: Current height: 5 foot 5 [...] Daniel Mata M.D. AG: DAPHNE Report ID: [id number] Reading Location: [id number] IMPRESSION: Low bone mass. Fracture risk assessment [...] Treatment of Osteoporosis (http://www.nof.org/professionals/clinical-guidelines) Jeniffer Burciaga MD IMMariela DEXA ORDERABLES Final R esult from Last 3 Months or Most Recently Relevant to Health Maintenance Insurance MEDICARE C [facility] Advance Directives Documents on File Type Date Recorded Patient Chemical Unit Operator Expl anation Advance Care Planning Discussion 01/12/2022 8:30 AM ACP Discussion Recor d/ 01/12/22 Power of Section Chief for Health Care 01/12/2022 8:30 AM POA-HC 01/12/22 * Full Code (Latest Code Status on File) Date Activated Date Inactivated Comments 11/12/2021 2:06 PM Care Teams Electric Meter Repairer Apprentice Relationship Specialty Start Date End Date Gorge Morel [place] [address] [place] [address] PCP - General Infectious Disease 10/15/24 Lincoln Simpson DPM Podiatry 03/30/22 Bairon Ryan MD [address] [place] [address] Consulting Physician Neurology 09/07/23 Elio Monae MD [address] [place] [address] Consulting Physician Pulmonary Disease 06/05/24
--- OUTSIDE RECORDS SUMMARY | 2024-10-25 16:20 | XMS_ITS | Encounter Summary ---
Author Organization [facility] Address [address] [facility] [place] [address] Phone Care Team Providers Care Faculty Member Name Role Phone Ramin Angeles DO Unavailable [phone] Jeniffer Burciaga MD Primary Care Provider [phone] Lincoln Simpson DPM Unavailable Unavailable Provider, None Primary Care Provider Unavailabl e Martín Cuenca MD Primary Care Provider [phone] Bairon Ryan MD Unavailable [phone] Larisa Eisenberg CUT OFF SAW TENDER METAL, TAX AUDITOR Unavailable + [phone] Cynthia Woody CUT OFF SAW TENDER METAL, TAX AUDITOR Primary Care Provider + Elio Monae MD Unavailable Gorge Morel MD Primary Care Provider + [phone] Reason for Visit * Reason Comments Medication Refill Encounter Details Date Type Department Care Team (Late st Contact Info) Description 06/28/2023 Refill [facility] [address] [place] [id number] Kylie Chawla, PAC [address] [place] [address] Medication Refill Social History Tobacco Use Types [...] Dept 05/15/23 Office Visit Jeniffer Burciaga MD [facility] [place] 04/05/23 Office Visit Kylie Chawla PAC [facility] 03/06/23 Telemedicine Jeniffer Burciaga MD [facility] 11/30/22 Office Visit Jeniffer Burciaga MD [facility] 09/28/22 Office Visit Cynthia Woody APRN, TAX AUDITOR [facility] Showing recent visits within past 365 days and meeting all other requirements Future Appointments Date Type Provider Dept 08/16/23 Appointment Jeniffer Burciaga MD [facility] Showing future appointments within next 90 days and meeting all other requirements documented in this encounter Plan of Treatment Upcoming Encounters Date Type Department Care Team (Late st Contact Info) Description 11/13/2024 8:00 AM PUTTIER Procedure Visit [facility] UROLOGY #2 [place] [address] Davion Alicea MD #[address] [address] 12/18/2024 10:30 AM CDT Office Visit [facility] - Family [facility] [address] [place] [address] Cynthia Woody, CUT OFF SAW TENDER METAL, TAX AUDITOR [address] [place] [address] 03/10/2025 1:00 PM CDT [facility] [address] [place] [address] Gilmar Bond MD [address] [place] [address] Discharge Disposition: Discharged to home or Selfcare documented as of this encounter Visit Diagnoses Not on filedocumented in this encounter Additional Health Concerns Assessment Noted Time PHQ-9 Depression Total Score: 0 04/12/20 18 2:00 PM CDT documented as of this encounter Care Teams Faculty Member Relationship Specialty Start Date End Date Jeniffer Burciaga MD [address] [place] [address] PCP - General Family Medicine 02/10/16 09/06/23 Provider, [facility] PCP - General 09/07/23 10/05/23 Martín Cuenca MD [address] [place] [address] PCP - General Family Medicine 10/06/23 02/05/24 Cynthia Woody, KYA, TAX AUDITOR [address] [place] [address] PCP - General Advanced Practice Nurse 02/07/24 Gorge Morel [place] [address] [place] [address] PCP - General Infectious Disease 10/15/24 Ramin Angeles DO Consulting Physician Gastroenterology 01/14/16 08/20/24 Lincoln Simpson DPM Podiatry 03/30/22 Bairon Ryan MD [address] [place] [address] Consulting Physician Neurology 09/07/23 Larisa Eisenberg, CUT OFF SAW TENDER METAL, TAX AUDITOR #2 [facility] [address] [place] [address] Nurse Practitioner Advanced Practice Nurse 01/26/24 Elio Monae MD [address] [place] [address] Consulting Physician Pulmonary Disease 06/05/24 documented as of this encounter
--- OUTSIDE RECORDS SUMMARY | 2024-10-25 16:20 | XMS_ITS | Encounter Summary ---
Author Organization [facility] Address [address] [facility] [place] [address] Phone Care Team Providers Care Organ Recovery Coordinator Name Role Phone Ramin Angeles DO Unavailable [phone] Lincoln Simpson DPM Unavailable Unavailable Bairon Ryan MD Unavailable [phone] Larisa Eisenberg CAREER DEVELOPMENT COORDINATOR/TEACHER, WEIGHTER Unavailable + [phone] Cynthia Woody CAREER DEVELOPMENT COORDINATOR/TEACHER, WEIGHTER Primary Care Provider + Elio Monae MD Unavailable Gorge Morel MD Primary Care Provider Reason for Visit * Reason Comments Medication Refill Encounter Details Date Type Department Care Team (Late st Contact Info) Description 02/22/2024 Refill [facility] [place] [address] [place] [address] Cynthia Woody, CAREER DEVELOPMENT COORDINATOR/TEACHER, WEIGHTER [address] [place] [address] Medication Refill Social History Tobacco Use Types Packs/Day Years Used Date Smoking Tobacco: Former Cigarettes 1 22 0 09/18/1969 - 09/18/1991 Smokeless Tobacco: Never Comments:Stopped smoking 30 years ago Alcohol Use Standard Drinks/Week Comments Never 0 (1 standard drink = 0.6 oz pur e alcohol) 1990 stopped [facility] Utilities Answer Date Recorded In [...] often do you attend chur ch or christian services? Never 09/30/2023 Do you belong to [...] Total Score - Questions 1-9 0 11/18 [facility] [place] of Occupat ional Health - Occupational Stress [...] Dept 02/07/24 Office Visit Cynthia Woody APRN, WEIGHTER [facility] [place] 12/29/23 Office Visit Cynthia Woody APRN, NADIRA [facility] [place] 10/06/23 Office Visit Cynthia Woody APRN, WEIGHTER [facility] [place] 05/15/23 Office Visit Jeniffer Burciaga MD [place] 04/05/23 Office Visit Kylie Chawla [facility] [place] 03/06/23 Telemedicine Jeniffer Burciaga MD [facility] [place] Showing recent visits within past 365 days and meeting all other requirements Future Appointments Date Type Provider Dept 03/11/24 Appointment Cynthia Woody APRN, WEIGHTER [facility] [place] Showing future appointments within next 90 days and meeting all other requirements Passed - GFR on record in past 12 months GFR, EST. NONAFRICAN Date Value Ref Range Status 10/06/2023 >60 >=60 Final documented in this encounter Plan of Treatment Upcoming Encounters Date Type Department Care Team (Late st Contact Info) Description 11/13/2024 8:00 AM WRITING CENTER DIRECTOR Procedure Visit [facility] [address] [place] [address] Davion Alicea MD [address] [address] 12/18/2024 10:30 AM CDT Office Visit [facility] [place] [address] [place] [address] Cynthia Woody APRN, WEIGHTER [address] [place] [address] 03/10/2025 1:00 PM CDT [facility] [address] [place] [address] Gilmar Bond MD [address] [place] [address] Discharge Disposition: Discharged to home or Selfcare documented as of this encounter Visit Diagnoses Diagnosis Essential (primary) hypertension Unspecified essential hypertension documented in this encounter Additional Health Concerns Assessment Noted Time PHQ-9 Depression Total Score: 0 04/12/20 18 2:00 PM CDT documented as of this encounter Care Teams Organ Recovery Coordinator Relationship Specialty Start Date End Date Cynthia Woody APRN, WEIGHTER [address] [place] [address] PCP - General Advanced Practice Nurse 02/07/24 Gorge Morel MD [place] [address] PCP - General Infectious Disease 10/15/24 Ramin Angeles DO Consulting Physician Gastroenterology 01/14/16 08/20/24 Lincoln Simpson DPM Podiatry 03/30/22 Bairon Ryan MD [address] [place] [address] Consulting Physician Neurology 09/07/23 Larisa Eisenberg APRN, WEIGHTER #2 [facility] [address] [place] [address] Nurse Practitioner Advanced Practice Nurse 01/26/24 Elio Monae MD [address] [place] [address] Consulting Physician Pulmonary Disease 06/05/24 documented as of this encounter
--- OUTSIDE RECORDS SUMMARY | 2024-10-25 16:20 | XMS_ITS | Encounter Summary ---
Author Organization [facility] Address [address] [facility] [place] [address] Phone Care Team Providers Care Fiberglass Ski Maker Name Role Phone Lincoln Simpson DPM Unavailable Unavailable Bairon Ryan MD Unavailable [phone] Cynthia Woody BUTCHER HELPER, IRRIGATION TEACHER Primary Care Provider + Elio Monae MD Unavailable Gorge Morel MD Primary Care Provider [phone] Reason for Referral * Consult, Test & Initiate Treatment (Routine) - Open Specialty Diagnoses / Procedures Referred By Jimenez wilkinson Referred To Contact Diagnoses Hematuria, unspecified type Cynthia Woody, KYA, IRRIGATION TEACHER [address] [place] [address] Phone: tel: fax: [facility] UROLOGY [address] [place] [address] Phone: tel: fax: Referral ID Status Reason Start Date Expiration Date Visits Re quested Visits Authorized [id number] Open 09/04/2024 1 1 Scheduling Instructions Rina is being referred for hematuria. Please contact patient for scheduling questions or concerns. CYCLE OPERATOR Encounter Details Date Type Department Care Team (Late st Contact Info) Description 09/04/2024 Results Follow-Up [facility] - [facility] [address] [place] [address] Cynthia Woody APRN, NADIRA [address] [place] [address] Hematuria, unspecified type (Primary Dx) Social History Tobacco Use Types Packs/Day Years Used Date Smoking Tobacco: Former Cigarettes 1 22 0 09/18/1969 - 09/18/1991 Smokeless Tobacco: Never Comments:Stopped smoking 30 years ago Alcohol Use Standard Drinks/Week Comments Never 0 (1 standard drink = 0.6 oz pur e alcohol) 1990 stopped [facility] [employer] Answer Date Recorded In the past 12 months has [employer], gas, oil, or water [employer] threatened to shut off services in your home? Patient declined 04/22/2024 Social Connection and Isolation Panel [NHANES] A nswer Date Recorded In a typical week, how many times do you talk on the phone with family, friends, or neighbors? Patient declined 04/22/2024 How often do you get togethe r with friends or relatives? Patient declined 04/22/2024 How often do you attend gnosticism or rastafari serv ices? Patient declined 04/22/2024 Do you belong to any clubs o r organizations such as gnosticism groups, unions, fraternal or athletic groups, or [...] Total Score - Questions 1-9 0 11/18 [facility] of Occupat ional [facility] - Occupational Stress Questionnaire Answer Date Recorded [...] place to sleep or slept in a mcc (including now)? No 09/30/2023 Housing Stability Vital Sign Answer Jaden e Recorded In the last 12 months, was t here a time when you were not able to pay the mortgage or rent on time? Patient declined 04/22/20 24 Number of Times Moved in the Last Year Not on fi le 04/22/2024 At any time in the past 12 m [facility], were you homeless or living in a mcc (including now)? Patient declined 04/22/2024 Education Answer [...] st Contact Info) Description 11/13/2024 8:00 AM TIME CYCLE OPERATOR Procedure Visit [facility] UROLOGY [address] [place] [address] Davion Alicea MD #[address] [address] 12/18/2024 10:30 AM CDT Office Visit [facility] #2 [place] [address] Cynthia Woody, BUTCHER HELPER, IRRIGATION TEACHER [address] [place] [address] 03/10/2025 1:00 PM CDT [facility] [address] [place] [address] Gilmar Bond MD [address] [place] [address] Discharge Disposition: Discharged to home or Selfcare [...] documented as of this encounter Care Teams Fiberglass Ski Maker Relationship Specialty Start Date End Date Cynthia Woody, BUTCHER HELPER, IRRIGATION TEACHER [address] [place] [address] PCP - General Advanced Practice Nurse 02/07/24 10/14/24 Gorge Morel MD [place] [address] PCP - General Infectious Disease 10/15/24 Lincoln Simpson DPM Podiatry 03/30/22 Bairon Ryan MD #[address] [facility] [place] [address] Consulting Physician Neurology 09/07/23 Elio Monae MD [address] [place] [address] Consulting Physician Pulmonary Disease 06/05/24 documented as of this encounter
--- OUTSIDE RECORDS SUMMARY | 2024-10-25 16:20 | XMS_ITS | Encounter Summary ---
Author Organization [facility] Address [address] [facility] [place] [address] Phone Care Team Providers Care Environmental Planner Name Role Phone Ramin Angeles DO Unavailable [phone] Lincoln Simpson DPM Unavailable Unavailable Martín Cuenca MD Primary Care Provider [phone] Bairon Ryan MD Unavailable [phone] Larisa Eisenberg GEOGRAPHIC INFORMATION SYSTEMS DIRECTOR, [employer] Unavailable + [phone] Cynthia Woody GEOGRAPHIC INFORMATION SYSTEMS DIRECTOR, [employer] Primary Care Provider + Elio Monae MD Unavailable Gorge Morel MD Primary Care Provider + [phone] Reason for Visit * Reason Comments Medication Refill Encounter Details Date Type Department Care Team (Late st Contact Info) Description 01/07/2024 Refill [facility] Medical Group - Family Medicine [facility] [address] [place] [address] Jeniffer Burciaga MD [address] [place] [address] Medication Refill Social History Tobacco Use Types Packs/Day Years Used Date Smoking Tobacco: Former Cigarettes 1 22 0 09/18/1969 - 09/18/1991 Smokeless Tobacco: Never Comments:Stopped smoking 30 years ago Alcohol Use Standard Drinks/Week Comments Never 0 (1 standard drink = 0.6 oz pur e alcohol) 1990 stopped [facility] Utilities Answer Date Recorded In [...] often do you attend chur ch or gnosticist services? Never 09/30/2023 Do you belong to any clubs o r organizations such as hinduism groups, unions, fraternal or athletic groups, or [...] Total Score - Questions 1-9 0 11/18 [facility] of Occupat ional Health - Occupational Stress [...] a long term (including now)? No 09/30/2023 Education Answer Date [...] CDT Medication(s) [facility]illed and [facility] Chronic Medication Refill Standing Order for [...] Dept 12/29/23 Office Visit Cynthia Woody APRN, [employer] [facility] [place] 10/06/23 Office Visit Cynthia Woody APRN, [employer] [facility] [place] 05/15/23 Office Visit Jeniffer Burciaga MD [facility] [place] 04/05/23 Office Visit Kylie Chawla, [facility] [place] 03/06/23 Telemedicine Jeniffer Burciaga MD [facility] [place] Showing recent visits within past 365 days and meeting all other requirements Future Appointments Date Type Provider Dept 02/01/24 Appointment Martín Cuenca MD [facility] [place] Showing future appointments within next 90 days and meeting all other requirements Passed - GFR on record in past 12 months GFR, EST. NONAFRICAN Date Value Ref Range Status 10/06/2023 >60 >=60 Final documented in this encounter Plan of Treatment Upcoming Encounters Date Type Department Care Team (Late st Contact Info) Description 11/13/2024 8:00 AM DAIRY TESTER Procedure Visit [email or web address] UROLOGY #2 [place] [address] Davion Alicea MD #[address] [address] 12/18/2024 10:30 AM CDT Office Visit [facility] #2 [place] [address] Cynthia Woody, GEOGRAPHIC INFORMATION SYSTEMS DIRECTOR, [employer] [address] [place] [address] 03/10/2025 1:00 PM CDT [facility] [address] [place] [address] Gilmar Bond MD [address] [place] [address] Discharge Disposition: Discharged to home or Selfcare documented as of this encounter Visit Diagnoses Not on filedocumented in this encounter Additional Health Concerns Assessment Noted Time PHQ-9 Depression Total Score: 0 04/12/20 18 2:00 PM CDT documented as of this encounter Care Teams Environmental Planner Relationship Specialty Start Date End Date Martín Cuenca MD [address] [place] [address] PCP - General Family Medicine 10/06/23 02/05/24 Cynthia Woody, GEOGRAPHIC INFORMATION SYSTEMS DIRECTOR, [employer] [address] [place] [address] PCP - General Advanced Practice Nurse 02/07/24 Gorge Morel MD [place] [address] PCP - General Infectious Disease 10/15/24 Ramin Angeles DO Consulting Physician Gastroenterology 01/14/16 08/20/24 Lincoln Simpson DPM Podiatry 03/30/22 Bairon Ryan MD [address] [place] [address] Consulting Physician Neurology 09/07/23 Larisa Eisenberg APRN, [employer] [address] [address] [place] [address] Nurse Practitioner Advanced Practice Nurse 01/26/24 Elio Monae MD [address] [place] [address] Consulting Physician Pulmonary Disease 06/05/24 documented as of this encounter
--- OUTSIDE RECORDS SUMMARY | 2024-10-25 16:20 | XMS_ITS | Encounter Summary ---
Author Organization [facility] Address [address] [facility] [place] [address] Phone Care Team Providers Care Forensic Anthropologist Name Role Phone Lincoln Simpson DPM Unavailable Unavailable Bairon Ryan MD Unavailable [phone] Elio Monae MD Unavailable Gorge Morel MD Primary Care Provider [phone] Encounter Details Date Type Department Care Team (Late st Contact Info) Description 10/22/2024 Results Follow-Up [facility] [address] [place] [address] Ovi Trinidad, DE ICER, CIVIL RIGHTS INVESTIGATOR [address] [place] [address] E. coli UTI (Primary Dx) Social History Tobacco Use Types Packs/Day Years Used Date Smoking Tobacco: Former Cigarettes 1 22 0 09/18/1969 - 09/18/1991 Smokeless Tobacco: Never Comments:Stopped smoking 30 years ago Alcohol Use Standard Drinks/Week Comments Never 0 (1 standard drink = 0.6 oz pur e alcohol) 1990 stopped [facility] Utilities Answer Date Recorded In the past 12 months has e [employer], gas, oil, or water [employer] threatened to shut off services in your home? Patient declined 04/22/2024 Social Connection and Isolation Panel [NHANES] A nswer Date Recorded In a typical week, how many times do you talk on the phone with family, friends, or neighbors? Patient declined 04/22/2024 How often do you get togethe r with friends or relatives? Patient declined 04/22/2024 How often do you attend buddhism or temple serv ices? Patient declined 04/22/2024 Do you belong to any clubs o r organizations such as buddhism groups, unions, fraternal or athletic groups, or [...] Total Score - Questions 1-9 0 /3 [facility] - Occupational [...] place to sleep or slept in a snf (including now)? No 09/30/2023 Housing Stability Vital Sign Answer Jaden e Recorded In the last 12 months, was t here a time when you were not able to pay the mortgage or rent on time? Patient declined 04/22/20 24 Number of Times Moved in the Last Year Not on fi le 04/22/2024 At any time in the past 12 m [facility], were you homeless or living in a snf (including now)? Patient declined 04/22/2024 Education Answer [...] st Contact Info) Description 11/13/2024 8:00 AM MANAGER IMPLEMENTATION Procedure Visit [facility] [address] [place] [id number] Davion Alicea MD [address] [phone] 12/18/2024 10:30 AM CDT Office Visit [facility] [place] [address] [place] [phone] Cynthia Woody, [place] ICER, CIVIL RIGHTS INVESTIGATOR [address] [place] [address] 03/10/2025 1:00 PM CDT [facility] [address] [place] [address] Gilmar Bond MD [address] [place] [address] Discharge Disposition: Discharged to home or Selfcare documented as of this encounter Visit Diagnoses Diagnosis E. coli UTI- Primary Urinary tract infection, site not specified documented in this encounter Additional Health Concerns Assessment Noted Time PHQ-9 Depression Total Score: 0 04/12/20 18 2:00 PM CDT documented as of this encounter Care Teams Forensic Anthropologist Relationship Specialty Start Date End Date Gorge Morel MD [address] [place] [address] PCP - General Infectious Disease 10/15/24 Lincoln Simpson DPM Podiatry 03/30/22 Bairon Ryan MD [address] [place] [phone] Consulting Physician Neurology 09/07/23 Elio Monae MD [address] [place] [address] Consulting Physician Pulmonary Disease 06/05/24 documented as of this encounter
[2024-10-25 17:31] LABS: Iron 84 ug/dL (37-170)
[2024-10-25 17:40] LABS: Percent Iron Saturation 32 % (20-50)
[2024-10-25 17:41] LABS: Albumin Level 4.1 g/dL (3.5-5.1); Alkaline Phosphatase 289 U/L (38-126); Aspartate Amino Transferase 266 U/L (14-36); Bilirubin,Total 0.4 mg/dL (0.2-1.3)
[2024-10-25 17:44] LABS: Alanine Aminotransferase 815 U/L (6-35)
[2024-10-26 04:34] LABS: GGT 374 U/L (3-65)
[2024-10-27 05:18] LABS: Alpha-1-Antitrypsin, QN 196 mg/dL (83-199)
[2024-10-30 08:53] LABS: Actin Antibody (IgG) <20 U (<20)
[2024-10-30 12:54] LABS: Anti Nuclear Antibody Pattern Nuclear, Homogeneous; Anti Nuclear Antibody Titer 1:40 titer
[2024-10-31 04:33] LABS: Mitochondrial (M2) Ab (IgG) <20.0 U
[2024-11-01 11:04] LABS: Reference Lab Test Name Autoimmune Hep Pan
[2024-11-01 22:28] LABS: Alkaline Phosphatase 304 U/L (37-153)
== END 2024-10-25 16:09 | disposition home or self-care (01) ==
LOC: ANHLAB 16:15
PROVIDERS: Visit Provider Nurse Practitioner Family
DX: R74.8 Abnormal levels of other serum enzymes (principal)
CPT/HCPCS: 36415; 80076; 81596; 82103; 82728; 82977; 83520; 83540; 83550; 84075; 84080; 86015; 86038; 86039; 86364; 86376; 86381

== ENCOUNTER 2024-11-18 10:42 | Outpatient (CLI) | payer MEDICARE, SELFPAY | END 2024-11-18 10:43 | disposition home or self-care (01) | LOC: ANHIMG 10:46 | PROVIDERS: PCP Internal Medicine Infectious Disease; Visit Provider Nurse Practitioner Family | DX: R79.89 Other specified abnormal findings of blood chemistry (principal) | CPT/HCPCS: 76705 ==